=== PATIENT | male | born 1965 | race Caucasian/White ===

== ENCOUNTER 2019-05-29 16:05 | Inpatient (IN) | payer MEDICARE, OTHER ==
[~2019-05-29] VITALS: Ht 154.9 cm; Wt 53.1 kg
--- NOTE | 2019-05-29 17:35 | Emergency Room Report ---
History of Present Illness General Chief Complaint: Fever Source: Medical Record Present Illness HPI Disclaimer: Please note that this report is being documented using [employer] technology. This can lead to erroneous entry secondary to incorrect interpretation by the dictating instrument. HPI: 54-year-old male with history of Down syndrome presents for evaluation of fever and cough. [facility] He was found to have a temperature of 100.5 today and coughing with some purulent material noted. He was found hypoxic by EMS saturating 90% and placed on a nonrebreather which improved his saturations. He received Tylenol prior to transport. Cannot obtain any history from patient. He is DNR/DNI with limited interventions PMH: Down syndrome, aortic stenosis, CHF, hepatitis, previous pneumonias, PSH: Complex wound closures, cardiac surgeries Allergies: Ketamine, NSAIDs Social Hx: None reported Allergies: Coded Allergies: KETAMINE (Verified Allergy, Unknown, 05/29/19) NSAIDS (NON-STEROIDAL ANTI-INFLAMMA (Verified Allergy, Unknown, 05/29/19) Nursing Documentation-PMH Past Medical History: No History, Except For Review of Systems All Other Systems: limited - Patient mental status Physical Exam Vital Signs Date Time Temp Pulse Resp B/P (MAP) Pulse Ox O2 Delivery O2 Flow Rate FiO2 05/29/19 16:11 97.5 118 16 100/54 (69) 91 Nasal Cannula 5.0 General: Awake, nonverbal HEENT: NC/AT. EOMI. strabismus Cardiovascular: Tachycardic. Difficult to appreciate heart sounds Resp: Tachypnea, increased work of breathing. Coarse rales in all lung soto Abdomen: Abdomen is soft, nondistended. Nontender Skin: Multiple scars over the knees bilaterally are clean dry and intact. Feet are bandaged MSK: Deformity of the knees bilaterally appear to be postsurgical. Neuro: Awake, nonverbal, few spontaneous motions Medical Decision Making Diagnostic Impression: Primary Impression: Fever Additional Impressions: Tachycardia Pneumonia ER Course 54-year-old male with history of Down syndrome who is DNR/DNI presents for evaluation of fever and cough. Strong consideration of pneumonia at this time though may be a viral illness or possibly ACS, URI, CHF, bronchitis, pneumothorax. We will start broad work-up including blood cultures and give antibiotics empirically. He will require admission given his work of breathing. Laboratory Tests Test 05/29/19 17:50 05/29/19 18:35 05/29/19 19:55 Arterial Blood pH 7.413 (7.350-7.450) Arterial Blood Partial Pressure CO2 39.9 mmHg (35.0-45.0) Arterial Blood Partial Pressure O2 73.9 mmHg (75.0-100.0) L Arterial Blood HCO3 24.9 mmol/L (22.0-26.0) Arterial Blood Oxygen Saturation 94.1 % (95-100) L Arterial Blood Base Excess 0.4 (-2-2) Jonathan Test Positive Sodium Level 134 MMOL/L (136-145) L Potassium Level 4.4 MMOL/L (3.5-5.1) Chloride Level 99 MMOL/L (98-107) Carbon Dioxide Level 24 MMOL/L (21-32) Anion Gap 11 mmol/L (5-15) Blood Urea Nitrogen 9 mg/dL (7-18) Creatinine 0.6 MG/DL (0.55-1.30) Estimate Glomerular Filtration Rate > 60 mL/min (>60) Glucose Level 103 MG/DL (74-106) Lactic Acid Level 1.20 mmol/L (0.4-2.0) Calcium Level 8.9 MG/DL (8.5-10.1) Phosphorus Level 4.1 MG/DL (2.5-4.9) Magnesium Level 2.0 MG/DL (1.8-2.4) Total Bilirubin 0.7 MG/DL (0.2-1.0) Aspartate Amino Transferase (AST) 38 U/L (15-37) H Alanine Aminotransferase (ALT) 100 U/L (12-78) H Alkaline Phosphatase 79 U/L (46-116) Total Creatine Kinase 80 U/L (26-308) Creatine Kinase MB 0.8 NG/ML (0.0-3.6) Creatine Kinase MB Relative Index 1.0 Troponin I 0.000 ng/mL (0.000-0.056) Pro-B-Type Natriuretic Peptide 914 pg/mL (0-125) H Total Protein 8.2 G/DL (6.4-8.2) Albumin 2.5 G/DL (3.4-5.0) L Globulin 5.7 g/dL Albumin/Globulin Ratio 0.4 (1.0-2.7) L White Blood Count 20.5 K/UL (4.8-10.8) H Red Blood Count 3.61 M/UL (4.70-6.10) L Hemoglobin 12.3 G/DL (14.2-18.0) L Hematocrit 34.3 % (42.0-52.0) L Mean Corpuscular Volume 95 FL (80-99) Mean Corpuscular Hemoglobin 34.1 PG (27.0-31.0) H Mean Corpuscular Hemoglobin Concent 35.8 G/DL (32.0-36.0) Red Cell Distribution Width 11.2 % (11.6-14.8) L Platelet Count 296 K/UL (150-450) Mean Platelet Volume 5.8 FL (6.5-10.1) L Neutrophils (%) (Auto) % (45.0-75.0) Lymphocytes (%) (Auto) % (20.0-45.0) Monocytes (%) (Auto) % (1.0-10.0) Eosinophils (%) (Auto) % (0.0-3.0) Basophils (%) (Auto) % (0.0-2.0) Differential Total Cells Counted 100 Neutrophils % (Manual) 76 % (45-75) H Lymphocytes % (Manual) 8 % (20-45) L Monocytes % (Manual) 7 % (1-10) Eosinophils % (Manual) 0 % (0-3) Basophils % (Manual) 0 % (0-2) Band Neutrophils 9 % (0-8) H Platelet Estimate Adequate Platelet Morphology Normal Red Blood Cell Morphology Normal EKG Diagnostic Results EKG Time: 17:55 Rate: tachycardiac Rhythm: NSR ST Segments: no acute changes Other Impression Sinus rhythm, normal axis, normal intervals. Tachycardia. No acute ST segment changes appreciated. Rhythm Strip Diag. Results Rhythm Strip Time: 17:55 EP Interpretation: yes Rate: 110s Rhythm: NSR, no PVC's, no ectopy Chest X-Ray Diagnostic Results Chest X-Ray Diagnostic Results : # of Views/Limited/Complete: 1 View Indication: Shortness of Breath EP Interpretation: Yes Interpretation: no pneumothorax, other - Bilateral congestion, possible pneumonia Impression: Other - Possible bilateral pneumonia, left greater than right Electronically Signed by: Electronically signed by Dr. Jerry Gonsalves Reevaluation Time: 19:39 Last Vital Signs Date Time Temp Pulse Resp B/P (MAP) Pulse Ox O2 Delivery O2 Flow Rate FiO2 05/29/19 16:11 97.5 118 16 100/54 (69) 91 Nasal Cannula 5.0 Reevaluation Impression Concern for pneumonia versus atelectasis however given the patient's history of desaturation and persistent tachycardia will presume pneumonia at this time. BNP slightly elevated 900 but will start IV fluids. White count of 20.5. Blood gas unremarkable. Lactate within normal limits at 1.2, creatinine 0.6. Tachycardia is somewhat stable but will now start IV fluids. Continue IV fluids. Patient will be admitted to telemetry. Disposition: ADMITTED INPATIENT Condition: Serious Jerry Gonsalves MD May 29, 2019 17:35
[2019-05-29] MEDS ORDERED: Cefepime HCl 2 GM in NS 110 ML IV SCH (17:45)
[2019-05-29 19:15] LABS: ANION GAP 11 mmol/L (5-15); BLOOD UREA NITROGEN 9 mg/dL (7-18); CALCIUM 8.9 MG/DL (8.5-10.1); CARBON DIOXIDE 24 MMOL/L (21-32); CHLORIDE 99 MMOL/L (98-107); CREATININE 0.6 MG/DL (0.55-1.30); POTASSIUM 4.4 MMOL/L (3.5-5.1); SODIUM 134 MMOL/L (136-145)
--- NOTE | 2019-05-29 19:17 | Diagnostic Imaging Report ---
EXAM: XR Chest, 1 View CLINICAL HISTORY: COUGH TECHNIQUE: Frontal view of the chest. COMPARISON: None FINDINGS: Hardware: None. Lungs pleura: Left greater than right bibasilar opacities may represent small pleural effusions with atelectasis versus pneumonia on the left and probable atelectasis on the right. Heart mediastinum: Mild enlargement of the cardiac silhouette. Soft tissues: Unremarkable. Bones: No acute fracture. Scoliosis. Upper abdomen: Normal. IMPRESSION: Left greater than right bibasilar opacities may represent small pleural effusions with atelectasis versus pneumonia on the left and probable atelectasis on the right.
[2019-05-29 19:27] LABS: ALANINE AMINOTRANSFERASE 100 U/L (12-78); ALBUMIN 2.5 G/DL (3.4-5.0); ALBUMIN/GLOBULIN RATIO 0.4 (1.0-2.7); ALKALINE PHOSPHATASE 79 U/L (46-116); ASPARTATE AMINO TRANSFERASE 38 U/L (15-37); BILIRUBIN,TOTAL 0.7 MG/DL (0.2-1.0); CKMB 0.8 NG/ML (0.0-3.6); CREATINE KINASE 80 U/L (26-308); PHOSPHORUS 4.1 MG/DL (2.5-4.9)
[2019-05-29 20:11] LABS: HEMATOCRIT 34.3 % (42.0-52.0); HEMOGLOBIN 12.3 G/DL (14.2-18.0); MEAN CORPUSCULAR VOLUME 95 FL (80-99); PLATELET COUNT 296 K/UL (150-450); RED BLOOD COUNT 3.61 M/UL (4.70-6.10); RED CELL DISTRIBUTION WIDTH 11.2 % (11.6-14.8); WHITE BLOOD COUNT 20.5 K/UL (4.8-10.8)
[2019-05-29 20:25] VITALS: BP 121/65
[2019-05-29 21:21] LABS: APPEARANCE,URINE CLEAR; BILIRUBIN, URINE NEGATIVE (NEGATIVE); GLUCOSE, URINE (UA) NEGATIVE (NEGATIVE); KETONES,URINE NEGATIVE (NEGATIVE); LEUKOCYTE ESTERASE ,URINE 1+ (NEGATIVE); NITRITE,URINE NEGATIVE (NEGATIVE); PH,URINE 6.5 (4.5-8.0); PROTEIN,URINE 3+ (NEGATIVE); UROBILINOGEN,URINE NORMAL MG/DL (0.0-1.0)
[2019-05-29 21:25] LABS: COLOR,URINE YELLOW
[2019-05-29] MEDS ORDERED: DOCUSATE SODIU100 MG ORAL (22:05)
[2019-05-29] MEDS ORDERED: SYNTHROID25 MCG ORAL (22:05)
[2019-05-29] MEDS ORDERED: ASCORBIC ACID500 MG ORAL (22:05)
[2019-05-29] MEDS ORDERED: COMPLETE M9 MG/15 M1 PO (22:05)
[2019-05-29] MEDS ORDERED: ATORVASTATIN CA10 MG ORAL (22:05)
[2019-05-29] MEDS ORDERED: DULCOLAX10 MG RC (22:05)
[2019-05-29] MEDS ORDERED: MEGACE ORA400 MG/10 GT (22:05)
[2019-05-29] MEDS ORDERED: FLEET ENEMA133 ML RECTAL (22:05)
[2019-05-29] MEDS ORDERED: TRAMADOL HCL50 MG ORAL (22:05)
[2019-05-29] MEDS ORDERED: OYSTER SHELL C1 EA17 PO (22:05)
[2019-05-29] MEDS ORDERED: HEPARIN SO5000 UNIT5 IJ (22:05)
[2019-05-29] MEDS ORDERED: MIDODRINE HCL5 MG ORAL (22:05)
[2019-05-29] MEDS ORDERED: FERROUS SULFAT325 MG ORAL (22:05)
[2019-05-29] MEDS ORDERED: OMEPRAZOLE20 M3 ORAL (22:05)
[2019-05-29] MEDS ORDERED: AMMONIUM LACTA385 GM TP (22:05)
[2019-05-29] MEDS ORDERED: MILK OF MA400 MG/51 ORAL (22:05)
[2019-05-29] MEDS ORDERED: VITAMIN B-12100 MCG ORAL (22:05)
[2019-05-29] MEDS ORDERED: VENTOLIN HFA18 GM INH (22:05)
[2019-05-29] MEDS ORDERED: LORazepam Inj 2mg/ml 1ml IV PRN (23:15)
[2019-05-30] VITALS (7 sets, daily range): BP systolic 95–123; BP diastolic 58–82
[2019-05-30] MEDS ORDERED: D5 1/2NS 1,000 ML IV SCH
[2019-05-30] MEDS: Albuterol/Ipratropium 3ml neb HHN PRN ×2 (02:07→21:48)
[2019-05-30] MEDS ORDERED: Cefepime HCl 2 GM in NS 110 ML IV SCH (04:00)
[2019-05-30 07:27] LABS: HEMATOCRIT 33.9 % (42.0-52.0); HEMOGLOBIN 12.2 G/DL (14.2-18.0); MEAN CORPUSCULAR VOLUME 95 FL (80-99); PLATELET COUNT 326 K/UL (150-450); RED BLOOD COUNT 3.57 M/UL (4.70-6.10); RED CELL DISTRIBUTION WIDTH 11.6 % (11.6-14.8); WHITE BLOOD COUNT 20.9 K/UL (4.8-10.8)
[2019-05-30 07:44] LABS: ANION GAP 8 mmol/L (5-15); BLOOD UREA NITROGEN 9 mg/dL (7-18); CALCIUM 8.7 MG/DL (8.5-10.1); CARBON DIOXIDE 25 MMOL/L (21-32); CHLORIDE 101 MMOL/L (98-107); CREATININE 0.8 MG/DL (0.55-1.30); POTASSIUM 3.8 MMOL/L (3.5-5.1); SODIUM 134 MMOL/L (136-145)
[2019-05-30] MEDS ORDERED: Vancomycin 1gm/D5W 275ml IVPB ONE ×4 (08:00)
[2019-05-30] MEDS: Heparin 5000 units/ml inj SUBQ SCH ×2 (09:01→20:43)
[2019-05-30] MEDS ORDERED: SYNTHROID50 MCG ORAL (09:26)
[2019-05-30] MEDS ORDERED: D5NS 1,000 ML IV SCH (11:00)
[2019-05-30] MEDS ORDERED: Levothyroxine 25mcg tab ORAL SCH (12:00)
[2019-05-30] MEDS: Docusate 100mg cap ORAL SCH ×2 (12:11→18:42)
--- NOTE | 2019-05-30 14:21 | History and Physical ---
History of Present Illness General Date patient seen: May 30, 2019 Reason for Hospitalization: Fever Present Illness HPI Dwayne Gibson is a 54 yo man with PMH of Down's syndrome (nonverbal and bedbound at baseline), CHF (unknown EF), HTN, HLD, iron deficiency anemia, hypothyroid, GERD, , and bilateral foot pressure ulcers who presented from [facility] with fever and hypoxia. Discussed with staff at [facility], patient noted with cough (mostly non productive), increased RR, and fever Tm 100.5 at facility yesterday. Patient usually is on NC oxygen baseline 2-4L, mostly using 2L as needed. However, patient noted to be hypoxic to 82% on 2L yesterday, requiring increased NC oxygen. Unable to obtain history from patient as patient nonverbal at baseline. Staff denies noting any additional concerns, denies issues with bowel or urine. In the ED, patient noted with fever Tm 100.5, tachycardic to 130s, tachypnic to 30s, and requiring 4L NC to keep saturation >92%. Labs notable for leukocytosis 20.5 with 9 bands, H/H 12.3/34.3, sodium 134, BUN/Cr 9/ 0.6, lactate 1.2, AST 38, ALT 100, negative troponin, BNP 914, ABG 7.4/39/73/ 24. UA with 3+protein, 2+blood, 1+leuk est, 2-4RBC, not overtly indicative of infection. CXR showed L>R bibasilar opacities, may represent small pleural effusions with atelectasis vs PNA on L and probable atelectasis on R. Patient received NS bolus 30cc/kg and vancomycin x1 and cefepime x1. PMH: Down's syndrome (nonverbal and bedbound at baseline), CHF (unknown EF), HTN , HLD, iron deficiency anemia, hypothyroid, GERD, , and bilateral foot pressure ulcers PSH: None documented from SNF records FH: Unable to obtain given patient nonverbal SH: Lives at [facility], bedbound and nonverbal at baseline Meds/Allergies: Reviewed and reconciled as documented below ROS: Unable to obtain full ROS given patient nonverbal at baseline, otherwise negative except for noted above in HPI per staff from [facility] Allergies: Coded Allergies: KETAMINE (Verified Allergy, Unknown, 05/29/19) NSAIDS (NON-STEROIDAL ANTI-INFLAMMA (Verified Allergy, Unknown, 05/29/19) Medication History Scheduled Albuterol Sulfate (Ventolin Hfa), 1 PUFF INH EVERY 6 HOURS, (Reported) Ascorbic Acid* (Ascorbic Acid*), 500 MG ORAL DAILY, (Reported) Atorvastatin Calcium* (Lipitor*), 10 MG ORAL BEDTIME, (Reported) Cyanocobalamin (Vitamin B-12), 100 MCG ORAL DAILY, (Reported) Docusate Sodium* (Docusate Sodium*), 100 MG ORAL THREE TIMES A DAY, (Reported) Ferrous Sulfate* (Ferrous Sulfate*), 325 MG ORAL DAILY, (Reported) Levothyroxine Sodium (Synthroid), 50 MCG ORAL Mon, Wed, Fri, Sun, (Reported) Levothyroxine Sodium* (Synthroid*), 25 MCG ORAL Tues, Thurs, Sat, (Reported) Magnesium Hydroxide* (Milk Of Magnesia*), 30 ML ORAL DAILY, (Reported) Midodrine* (Proamatine*), 5 MG ORAL THREE TIMES A DAY, (Reported) Na Phos,M-B/Na Phos,Di-Ba* (Fleet Enema*), 133 ML RECTAL DAILY, (Reported) Omeprazole (Omeprazole), 20 MG ORAL DAILY, (Reported) Scheduled PRN Tramadol Hcl* (Ultram*), 50 MG ORAL Q6H PRN for For Pain, (Reported) Miscellaneous Medications Ammonium Lactate (Ammonium Lactate), 385 GM TP, (Reported) Bisacodyl (Dulcolax), 10 MG RC, (Reported) Calcium Carbonate/Vitamin D3 (Oyster Shell Calcium + D Cplt), 1 EACH PO, ( Reported) Heparin Sodium,Porcine (Heparin Sodium), 5,000 UNIT IJ, (Reported) Megestrol Acetate (Megestrol Acetate), 400 MG GT, (Reported) Multivit &Minerals/Ferrous Fum (Complete Multivit-Mineral Liq), 9 MG PO, ( Reported) Patient History Limited by: other - patient with Downs, nonverbal at baseline History Provided By: Medical Record, Caregiver Healthcare decision maker Resuscitation status DNR, limited interventions Advanced Directive on File Yes Past Medical/Surgical History Past Medical/Surgical History: (1) Down's syndrome (2) Hypothyroid (3) CHF (congestive heart failure) (4) HTN (hypertension) (5) HLD (hyperlipidemia) (6) GERD (gastroesophageal reflux disease) (7) Iron deficiency anemia (8) Aortic stenosis Review of Systems All Other Systems: negative except mentioned in HPI ROS Narrative Unable to obtain full ROS given patient nonverbal at baseline Physical Exam General Appearance: other - Awakens and opens eyes to voice, non verbal at baseline, mild tachypnea but no overt distress Lines, tubes and drains: peripheral HEENT: normocephalic, atraumatic, other - dry mucus membranes Neck: supple Respiratory/Chest: other - Minimally increased WOB with borderline tachypnea, rhonchorous bilaterally, L>R, no wheezing appreciated Cardiovascular/Chest: regular rhythm, tachycardia, other - Mildly tachycardic rate, regular rhythm Extremities: non-tender, normal capillary refill, no edema, no cyanosis Skin Exam: warm/dry, other - no wounds noted on LE/feet bilaterally Neurologic: other - No obvious focal deficits, nonverbal at baseline, opens eyes to voice Musculoskeletal: atrophy - atrophy of LE Last 24 Hour Vital Signs Date Time Temp Pulse Resp B/P (MAP) Pulse Ox O2 Delivery O2 Flow Rate FiO2 05/30/19 12:00 100.0 126 24 117/69 (85) 90 05/30/19 12:00 114 05/30/19 09:00 Venturi Mask 4.0 05/30/19 08:00 99.7 131 24 114/68 (83) 90 05/30/19 08:00 136 05/30/19 07:00 122 05/30/19 04:00 98.1 120 20 114/68 (83) 95 05/30/19 04:00 4.0 05/30/19 04:00 136 05/30/19 02:18 130 22 92 Venturi Mask 10.0 45 125 22 90 05/30/19 01:15 Nasal Cannula 4.0 05/30/19 00:00 4.0 05/30/19 00:00 120 05/30/19 00:00 98.2 100 20 122/67 (85) 95 05/30/19 00:00 Nasal Cannula 4.0 05/29/19 22:00 98.9 99 34 133/66 96 Nasal Cannula 4.0 05/29/19 20:26 115 34 Nasal Cannula 4.0 05/29/19 20:25 100.5 115 34 121/65 95 Nasal Cannula 4.0 05/29/19 16:11 97.5 118 16 100/54 (69) 91 Nasal Cannula 5.0 Intake and Output 05/29/19 05/30/19 18:59 06:59 Intake Total 1110 ml Output Total 300 ml Balance 810 ml Intake IV Total 1110 ml Output Urine Total 300 ml Laboratory Tests Test 05/29/19 17:50 05/29/19 18:35 05/29/19 19:55 05/29/19 21:00 Arterial Blood pH 7.413 (7.350-7.450) Arterial Blood Partial Pressure CO2 39.9 mmHg (35.0-45.0) Arterial Blood Partial Pressure O2 73.9 mmHg (75.0-100.0) L Arterial Blood HCO3 24.9 mmol/L (22.0-26.0) Arterial Blood Oxygen Saturation 94.1 % (95-100) L Arterial Blood Base Excess 0.4 (-2-2) Jonathan Test Positive Sodium Level 134 MMOL/L (136-145) L Potassium Level 4.4 MMOL/L (3.5-5.1) Chloride Level 99 MMOL/L (98-107) Carbon Dioxide Level 24 MMOL/L (21-32) Anion Gap 11 mmol/L (5-15) Blood Urea Nitrogen 9 mg/dL (7-18) Creatinine 0.6 MG/DL (0.55-1.30) Estimat Glomerular Filtration Rate > 60 mL/min (>60) Glucose Level 103 MG/DL (74-106) Lactic Acid Level 1.20 mmol/L (0.4-2.0) Calcium Level 8.9 MG/DL (8.5-10.1) Phosphorus Level 4.1 MG/DL (2.5-4.9) Magnesium Level 2.0 MG/DL (1.8-2.4) Total Bilirubin 0.7 MG/DL (0.2-1.0) Aspartate Amino Transf (AST/SGOT) 38 U/L (15-37) H Alanine Aminotransferase (ALT/SGPT) 100 U/L (12-78) H Alkaline Phosphatase 79 U/L (46-116) Total Creatine Kinase 80 U/L (26-308) Creatine Kinase MB 0.8 NG/ML (0.0-3.6) Creatine Kinase MB Relative Index 1.0 Troponin I 0.000 ng/mL (0.000-0.056) Pro-B-Type Natriuretic Peptide 914 pg/mL (0-125) H Total Protein 8.2 G/DL (6.4-8.2) Albumin 2.5 G/DL (3.4-5.0) L Globulin 5.7 g/dL Albumin/Globulin Ratio 0.4 (1.0-2.7) L White Blood Count 20.5 K/UL (4.8-10.8) H Red Blood Count 3.61 M/UL (4.70-6.10) L Hemoglobin 12.3 G/DL (14.2-18.0) L Hematocrit 34.3 % (42.0-52.0) L Mean Corpuscular Volume 95 FL (80-99) Mean Corpuscular Hemoglobin 34.1 PG (27.0-31.0) H Mean Corpuscular Hemoglobin Concent 35.8 G/DL (32.0-36.0) Red Cell Distribution Width 11.2 % (11.6-14.8) L Platelet Count 296 K/UL (150-450) Mean Platelet Volume 5.8 FL (6.5-10.1) L Neutrophils (%) (Auto) % (45.0-75.0) Lymphocytes (%) (Auto) % (20.0-45.0) Monocytes (%) (Auto) % (1.0-10.0) Eosinophils (%) (Auto) % (0.0-3.0) Basophils (%) (Auto) % (0.0-2.0) Differential Total Cells Counted 100 Neutrophils % (Manual) 76 % (45-75) H Lymphocytes % (Manual) 8 % (20-45) L Monocytes % (Manual) 7 % (1-10) Eosinophils % (Manual) 0 % (0-3) Basophils % (Manual) 0 % (0-2) Band Neutrophils 9 % (0-8) H Platelet Estimate Adequate Platelet Morphology Normal Red Blood Cell Morphology Normal Urine Color Yellow Urine Appearance Clear Urine pH 6.5 (4.5-8.0) Urine Specific [place] 1.020 (1.005-1.035) Urine Protein 3+ (NEGATIVE) H Urine Glucose (UA) Negative (NEGATIVE) Urine Ketones Negative (NEGATIVE) Urine Blood 2+ (NEGATIVE) H Urine Nitrite Negative (NEGATIVE) Urine Bilirubin Negative (NEGATIVE) Urine Urobilinogen Normal MG/DL (0.0-1.0) Urine Leukocyte Esterase 1+ (NEGATIVE) H Urine RBC 2-4 /HPF (0 - 0) H Urine WBC 0-2 /HPF (0 - 0) Urine Squamous Epithelial Cells None /LPF (NONE/OCC) Urine Bacteria Few /HPF (NONE) Test 05/30/19 06:11 White Blood Count 20.9 K/UL (4.8-10.8) H Red Blood Count 3.57 M/UL (4.70-6.10) L Hemoglobin 12.2 G/DL (14.2-18.0) L Hematocrit 33.9 % (42.0-52.0) L Mean Corpuscular Volume 95 FL (80-99) Mean Corpuscular Hemoglobin 34.2 PG (27.0-31.0) H Mean Corpuscular Hemoglobin Concent 36.0 G/DL (32.0-36.0) Red Cell Distribution Width 11.6 % (11.6-14.8) Platelet Count 326 K/UL (150-450) Mean Platelet Volume 5.7 FL (6.5-10.1) L Neutrophils (%) (Auto) % (45.0-75.0) Lymphocytes (%) (Auto) % (20.0-45.0) Monocytes (%) (Auto) % (1.0-10.0) Eosinophils (%) (Auto) % (0.0-3.0) Basophils (%) (Auto) % (0.0-2.0) Differential Total Cells Counted 100 Neutrophils % (Manual) 80 % (45-75) H Lymphocytes % (Manual) 4 % (20-45) L Monocytes % (Manual) 4 % (1-10) Eosinophils % (Manual) 0 % (0-3) Basophils % (Manual) 0 % (0-2) Band Neutrophils 12 % (0-8) H Platelet Estimate Adequate Platelet Morphology Normal Red Blood Cell Morphology Normal Sodium Level 134 MMOL/L (136-145) L Potassium Level 3.8 MMOL/L (3.5-5.1) Chloride Level 101 MMOL/L (98-107) Carbon Dioxide Level 25 MMOL/L (21-32) Anion Gap 8 mmol/L (5-15) Blood Urea Nitrogen 9 mg/dL (7-18) Creatinine 0.8 MG/DL (0.55-1.30) Estimat Glomerular Filtration Rate > 60 mL/min (>60) Glucose Level 120 MG/DL (74-106) H Calcium Level 8.7 MG/DL (8.5-10.1) Microbiology Date/Time Source Procedure Growth Status 05/29/19 21:00 Rectum Received Height (Feet): 5 Height (Inches): 1.00 Weight (Pounds): 130 Medications Current Medications Medications (Trade) Dose Ordered Sig/Kendra Route PRN Reason Start Time Stop Time Status Last Admin Dose Admin Albuterol/ Ipratropium (Albuterol/ Ipratropium) 3 ml Q4H PRN HHN Shortness of Breath 05/29/19 23:15 06/03/19 23:14 05/30/19 02:07 Ascorbic Acid (Vitamin C) 500 mg DAILY ORAL 05/31/19 09:00 06/30/19 08:59 Atorvastatin Calcium (Lipitor) 10 mg BEDTIME ORAL 05/30/19 21:00 06/29/19 20:59 Bisacodyl (Dulcolax) 10 mg DAILYPRN PRN RECTAL constipation 05/30/19 10:45 06/29/19 10:44 Cyanocobalamin (Vitamin B-12 Tab) 100 mcg DAILY ORAL 05/31/19 09:00 06/30/19 08:59 Dextrose/Sodium Chloride 1,000 ml @ 50 mls/hr Q20H IV 05/30/19 11:00 06/29/19 10:59 05/30/19 12:11 Docusate Sodium (Colace) 100 mg THREE TIMES A DAY ORAL 05/30/19 13:00 06/29/19 12:59 05/30/19 12:11 Famotidine (Pepcid) 20 mg DAILY ORAL 05/31/19 09:00 06/30/19 08:59 Ferrous Sulfate (Feosol) 325 mg DAILY ORAL 05/31/19 09:00 06/30/19 08:59 Heparin Sodium (Porcine) (Heparin 5000 units/ml) 5,000 units EVERY 12 HOURS SUBQ 05/30/19 09:00 06/29/19 08:59 05/30/19 09:01 Levothyroxine Sodium (Synthroid) 25 mcg TuThSa@0630 ORAL 06/02/19 06:30 07/02/19 06:29 Levothyroxine Sodium (Synthroid) 50 mcg [id number]@0630 ORAL 05/31/19 06:30 06/30/19 06:29 Lorazepam (Ativan 2mg/ml 1ml) 1 mg EVERY 6 HOURS PRN IV For Anxiety 05/29/19 23:15 06/05/19 23:14 Megestrol Acetate (Megace) 400 mg DAILY ORAL 05/31/19 09:00 06/30/19 08:59 Midodrine (Pro-Amatine) 5 mg TIDPRN PRN ORAL SBP<90 05/30/19 13:00 06/29/19 12:59 Piperacillin Sod/ Tazobactam Sod 3.375 gm/Dextrose 110 ml @ 27.5 mls/hr Q8HR IVPB 05/30/19 14:00 06/06/19 13:59 Vancomycin HCl (Vanco rx to dose) 1 ea DAILY PRN MISC Per rx protocol 05/29/19 23:15 06/28/19 23:14 Vancomycin HCl 1 gm/Sodium Chloride 275 ml @ 183.708 mls/hr Q12H IVPB 05/30/19 20:00 06/04/19 19:59 Assessment/Plan Status: unchanged, fever Assessment/Plan: Dwayne Gibson is a 54 yo man with PMH of Down's syndrome (nonverbal and bedbound at baseline), CHF (unknown EF), HTN, HLD, iron deficiency anemia, hypothyroid, GERD, , and bilateral foot pressure ulcers who presented from [facility] with fever, cough, and hypoxia, found with Tm 100.5, leukocytosis with left shift, and CXR suggestive of possible bilateral infiltrate, admitted for acute on chronic hypoxemic respiratory failure and sepsis 2/2 likely HCAP. #Acute on chronic hypoxemic respiratory failure (baseline NC 2-4L) #Sepsis 2/2 likely HCAP - Tm 100.5 on admission, WBC 20.5 with bands, RR to 30s, tachycardic to 130s - Monitor CBC daily for now, leukocytosis unchanged today - Lactate 1.2 - ABG on admission 7.4/39/73/24 - F/U BCX - F/U sputum CX - UA not overtly suggestive of UTI - CXR on admission with L>R bibasilar opacities, may represent small pleural effusions with atelectasis vs PNA on L and probable atelectasis on R - s/p vancomycin IV and cefepime IV in ED (05/29-05/30). Continue IV abx for HCAP with zosyn 4.5gm IV q6hrs (05/30- ) and vancomycin 1gm IV q12hrs (05/29- ) (changed to zosyn to cover potential aspiration/anaerobes given patient's lethargy). Plan for 5-7 days treatment pending clinical course. - Titrate oxygen to keep O2 sat >/=92%. Currently alternative between nasal cannula and ventimask requirements. Will add BiPAP PRN for increased work of breathing if needed. - S/p IVF NS 30cc/kg sepsis bolus. Continue gentle IVF with D5NS @50cc/hr for now while NPO, caution given CHF hx - Tylenol 650mg PO q6hrs PRN pain or fever - Duonebs q4hrs PRN SOB/wheezing #Sinus tachycardia - improving #hx HTN but now requiring PRN midodrine at SNF for intermittent hypotension #hx CHF (unknown EF) #hx #hx HLD - EKG with sinus tachycardia, TWI in lateral leads (no prior in chart for comparison). Troponin negative on admission. Low suspicion for acute ACS - Tachycardia 2/2 sepsis and fever, treat with abx and gentle IVF as above - Check TSH given patient on levothyroxine for hypothyroidism - Not overtly fluid overloaded on exam although with some atelectasis/mild PVCs/ small effusion on CXR, but given sepsis will hold off on diuresis, caution with IVF - Check TTE - Repeat CXR tomorrow to reassess fluid status - Continue home midodrine 5mg PO TID PRN SBP<90 - Holding home statin for now per below #Encephalopathy in setting of sepsis and underlying Down's syndrome - Baseline nonverbal and bedbound - Treat sepsis as above - Limit sedating medications as able - Keep NPO except for meds for now pending MACHINIST swallow eval #Mild transaminitis - AST 38 and ALT 100 on admission - Monitor daily LFTs for now - Check hepatitis panel, RUQ U/S. Abd exam benign at this time - Hold home atorvastatin for now #Chronic hyponatremia - Na 134 on admission, stable today - Per records from SNF, Na was 132 on 05/05/19 - IVF as per above - Monitor BMP #hx Hypothyroid - Check TSH - Continue home levothyroxine 25mcg PO TThSat and 50mcg PO SunMWF #hx GERD - Pepcid for home omeprazole #hx iron deficiency anemia - H/H stable - Continue home ferrous sulfate 325mg PO daily FEN IVF: D5NS @ 50cc/hr DVT ppx: Heparin subq GI ppx: Pepcid Code Status: DNR with limited interventions I spent 75 minutes on this patient encounter, with >50% spent on counseling and/ or coordination of care. Discussed with patient's RN, staff and RN at [facility]. Attempted to reach patient' next of kin Donnie Fowler ([phone] and [phone]) and medicare contact specialist Oralia Rascon ([phone]) multiple times today , called [facility] for additional numbers and tried all known contact numbers , no answer and unable to reach to discuss and update on plan of care. I spent additional 31 minutes on review of patient's prior records including prior medications, labs, physician notes, etc. Kitty Garrison M.D. May 30, 2019 14:21
[2019-05-30] MEDS: Piperacillin/Tazobactam 3.375 GM in D5W 110 ML IVPB SCH ×2 (14:48→22:20)
--- NOTE | 2019-05-30 17:12 | Cardiology Report ---
APPROVED REPORT EKG Measurement Heart [id number] Sinus tachycardia Possible Left atrial enlargement Borderline ECG
[2019-05-30] MEDS ORDERED: Vancomycin 1 GM in NS 275 ML IVPB SCH (20:00)
[2019-05-31] VITALS: BP 93/60
[2019-05-31] MEDS: D5NS 1,000 ML IV SCH ×2 (01:03→18:10)
[2019-05-31] MEDS ORDERED: Albuterol/Ipratropium 3ml neb HHN PRN (03:15)
[2019-05-31 04:00] VITALS: BP 107/65
[2019-05-31] MEDS: Piperacillin/Tazobactam 3.375 GM in D5W 110 ML IVPB SCH ×3 (05:45→21:16)
[2019-05-31] MEDS ORDERED: LORazepam Inj 2mg/ml 1ml IV PRN (06:00)
[2019-05-31 08:00] VITALS: BP 105/60
[2019-05-31] MEDS: Ascorbic Acid 500mg tab ORAL SCH (08:08)
[2019-05-31] MEDS: Vitamin B-12 100mcg tab ORAL SCH (08:08)
[2019-05-31] MEDS: Megace 400mg/10ml Susp ORAL SCH (08:08)
[2019-05-31] MEDS: Docusate 100mg cap ORAL SCH ×3 (08:08→17:02)
[2019-05-31] MEDS: Heparin 5000 units/ml inj SUBQ SCH ×2 (08:11→21:17)
[2019-05-31] MEDS: Vancomycin 1 GM in NS 275 ML IVPB SCH ×2 (08:11→21:16)
[2019-05-31 08:14] LABS: HEMATOCRIT 31.6 % (42.0-52.0); HEMOGLOBIN 11.1 G/DL (14.2-18.0); MEAN CORPUSCULAR VOLUME 97 FL (80-99); PLATELET COUNT 317 K/UL (150-450); RED BLOOD COUNT 3.26 M/UL (4.70-6.10); RED CELL DISTRIBUTION WIDTH 12.4 % (11.6-14.8); WHITE BLOOD COUNT 17.9 K/UL (4.8-10.8)
[2019-05-31 08:48] LABS: ALANINE AMINOTRANSFERASE 68 U/L (12-78); ALBUMIN/GLOBULIN RATIO 0.4 (1.0-2.7); ALKALINE PHOSPHATASE 61 U/L (46-116); ANION GAP 7 mmol/L (5-15); ASPARTATE AMINO TRANSFERASE 26 U/L (15-37); BILIRUBIN,TOTAL 0.7 MG/DL (0.2-1.0); BLOOD UREA NITROGEN 9 mg/dL (7-18); CALCIUM 8.7 MG/DL (8.5-10.1); CARBON DIOXIDE 27 MMOL/L (21-32); CHLORIDE 102 MMOL/L (98-107); CREATININE 0.7 MG/DL (0.55-1.30); POTASSIUM 3.5 MMOL/L (3.5-5.1); SODIUM 136 MMOL/L (136-145)
[2019-05-31] MEDS ORDERED: Megace 400mg/10ml Susp ORAL SCH (09:00)
[2019-05-31] MEDS ORDERED: Vitamin B-12 100mcg tab ORAL SCH (09:00)
[2019-05-31] MEDS ORDERED: Ascorbic Acid 500mg tab ORAL SCH (09:00)
[2019-05-31] MEDS ORDERED: D5NS 1000ml IV ONE (09:39)
--- NOTE | 2019-05-31 09:52 | Diagnostic Imaging Report ---
EXAM: XR Chest, 1 View CLINICAL HISTORY: COUGH TECHNIQUE: Frontal view of the chest. COMPARISON: Chest x-rays dated 05 29 19 FINDINGS: Lungs: New consolidation in the right lower lung, concerning for pneumonia versus atelectasis. Pulmonary vascular congestion. Pleural space: Small bilateral pleural effusions. Heart: Unremarkable. No cardiomegaly. Mediastinum: Unremarkable. Bones joints: Unremarkable. Tubes, lines and devices: Telemetry leads overlie the thorax. IMPRESSION: 1. New consolidation in the right lower lung, concerning for pneumonia versus atelectasis. 2. Pulmonary vascular congestion. 3. Small bilateral pleural effusions.
[2019-05-31] MEDS ORDERED: NS 275ml ONE (09:53)
[2019-05-31] MEDS ORDERED: Tubing IV Secondary IV ONE (09:53)
[2019-05-31 12:00] VITALS: BP 101/71
--- NOTE | 2019-05-31 12:06 | Cardiology Report ---
APPROVED REPORT EXAM: Two-dimensional and M-mode echocardiogram with Doppler and color Doppler. INDICATION Congestive Heart Failure M-Mode DIMENSIONS IVSd1.0 (0.7-1.1cm)Left Atrium (MM)3.3 (1.6-4.0cm) LVDd2.8 (3.5-5.6cm)Aortic Root2.6 (2.0-3.7cm) PWd1.1 (0.7-1.1cm)Aortic Cusp Exc.0.7 (1.5-2.0cm) LVDs1.7 (2.5-4.0cm) PWs1.3 cm Normal left ventricular chamber size, systolic function and wall motion. Left ventricular ejection fraction estimated to be 55 %. No evidence of left ventricular hypertrophy. Anterior Echo-free space, may be due to pericardial fat or effusion. All other cardiac chamber sizes are within normal limits. Aortic valve calcification with decreased cusp excursion c/w aortic stenosis. Echogenic material noted on anterior mitral valve leaflet. Heavily thickened mitral valve leaflets with reduced excursion. Heavy mitral annulus and aortic root calcification. Pulmonic valve not well visualized. Normal tricuspid valve structure. IVC is normal in size with physiological collapse. A color flow and spectral Doppler study was performed and revealed: No aortic regurgitation. Peak aortic valve gradient of 58 mmHg and a mean of 34 mmHg. Aortic valve area 1.0 cm2 calculated by continuity equation. Mild mitral regurgitation. Mitral P1/2 time of 50 m/s is compatible with a mitral valve area of 1.7 cm2. Peak mitral valve diastolic gradient of 21 mmHg and a mean gradient of 10 mmHg. Mitral diastolic velocities suggest mild left ventricular diastolic dysfunction (Grade I). Mild tricuspid regurgitation. Tricuspid systolic velocities suggests peak right ventricular systolic pressure of 43 mmHg, consistent with mild pulmonary hypertension. pulmonic regurgitation present.
[2019-05-31 16:00] VITALS: BP 94/57
--- NOTE | 2019-05-31 16:36 | Consultation ---
Consult Note Assessment/Plan [id number] hypercapnic/hypoxemic respiratory failure sepsis new dense RLL infiltrate HTn HLD GERD Downs syndrome decubitus ulcer chf and DNR increase IPAPbipap 15/8 FU abg nebs and suction q 4 NPO wound care repalce lytes check duplex progrnosis guarded Letitia Fan DO May 31, 2019 16:36
--- NOTE | 2019-05-31 16:45 | Consultation ---
History of Present Illness General Date patient seen: May 31, 2019 Chief Complaint: Fever Present Illness HPI 54 year old male with PMH of Down's syndrome, CHF, HTN, HLD, iron deficiency anemia, hypothyroid, GERD, , and foot pressure ulcers who presented with fever and hypoxia. Unable to obtain history from patient as patient nonverbal at baseline. On admission patient was noted to have a abnormal pressure ulcer on the right heel. Surgery was called to evaluate and assist with care. Patient seen, patient evaluated, chart reviewed. Allergies: Coded Allergies: KETAMINE (Verified Allergy, Unknown, 05/29/19) NSAIDS (NON-STEROIDAL ANTI-INFLAMMA (Verified Allergy, Unknown, 05/29/19) Medication History Scheduled Albuterol Sulfate (Ventolin Hfa), 1 PUFF INH EVERY 6 HOURS, (Reported) Ascorbic Acid* (Ascorbic Acid*), 500 MG ORAL DAILY, (Reported) Atorvastatin Calcium* (Lipitor*), 10 MG ORAL BEDTIME, (Reported) Cyanocobalamin (Vitamin B-12), 100 MCG ORAL DAILY, (Reported) Docusate Sodium* (Docusate Sodium*), 100 MG ORAL THREE TIMES A DAY, (Reported) Ferrous Sulfate* (Ferrous Sulfate*), 325 MG ORAL DAILY, (Reported) Levothyroxine Sodium (Synthroid), 50 MCG ORAL Mon, Wed, Fri, Sun, (Reported) Levothyroxine Sodium* (Synthroid*), 25 MCG ORAL Tues, Thurs, Sat, (Reported) Magnesium Hydroxide* (Milk Of Magnesia*), 30 ML ORAL DAILY, (Reported) Midodrine* (Proamatine*), 5 MG ORAL THREE TIMES A DAY, (Reported) Na Phos,M-B/Na Phos,Di-Ba* (Fleet Enema*), 133 ML RECTAL DAILY, (Reported) Omeprazole (Omeprazole), 20 MG ORAL DAILY, (Reported) Scheduled PRN Tramadol Hcl* (Ultram*), 50 MG ORAL Q6H PRN for For Pain, (Reported) Miscellaneous Medications Ammonium Lactate (Ammonium Lactate), 385 GM TP, (Reported) Bisacodyl (Dulcolax), 10 MG RC, (Reported) Calcium Carbonate/Vitamin D3 (Oyster Shell Calcium + D Cplt), 1 EACH PO, ( Reported) Heparin Sodium,Porcine (Heparin Sodium), 5,000 UNIT IJ, (Reported) Megestrol Acetate (Megestrol Acetate), 400 MG GT, (Reported) Multivit &Minerals/Ferrous Fum (Complete Multivit-Mineral Liq), 9 MG PO, ( Reported) Patient History Limited by: medical condition History Provided By: Medical Record, PMD Healthcare decision maker Resuscitation status Advanced Directive on File Past Medical/Surgical History Past Medical/Surgical History: (1) Tachycardia (2) Fever (3) Pneumonia (4) Aortic stenosis (5) Down's syndrome (6) CHF (congestive heart failure) (7) Iron deficiency anemia (8) GERD (gastroesophageal reflux disease) (9) HTN (hypertension) (10) Hypothyroid (11) HLD (hyperlipidemia) Review of Systems ROS Narrative cannot obtain given medical condition Physical Exam General Appearance: no apparent distress Lines, tubes and drains: peripheral HEENT: mucous membranes moist Neck: normal inspection Respiratory/Chest: lungs clear, no respiratory distress, no accessory muscle use Cardiovascular/Chest: normal rate Abdomen: soft, no organomegaly, no mass Extremities: non-tender, non-pitting Skin Exam: warm/dry Neurologic: other Last 24 Hour Vital Signs Date Time Temp Pulse Resp B/P (MAP) Pulse Ox O2 Delivery O2 Flow Rate FiO2 05/31/19 16:00 50 05/31/19 16:00 Bi-pap 05/31/19 14:30 119 35 96 Facial 100 05/31/19 12:30 108 33 96 Facial 100 05/31/19 12:00 50 05/31/19 12:00 Bi-pap 05/31/19 12:00 99.0 122 32 101/71 (81) 99 05/31/19 11:43 105 05/31/19 10:30 109 32 95 Facial 100 05/31/19 09:08 93 05/31/19 08:25 109 29 90 Facial 40 05/31/19 08:25 90 Bi-Pap 40 05/31/19 08:25 109 29 90 Bi-Pap 40 05/31/19 08:00 50 05/31/19 08:00 Bi-pap 05/31/19 08:00 115 05/31/19 08:00 98.2 126 33 105/60 (75) 92 05/31/19 05:37 115 32 94 Facial 40 05/31/19 04:00 Bi-pap 05/31/19 04:00 99.1 120 30 107/65 (79) 95 05/31/19 04:00 106 05/31/19 03:21 100 29 93 Facial 40 05/31/19 01:00 40 05/31/19 00:49 109 34 95 Facial 40 05/31/19 00:00 116 05/31/19 00:00 99.0 114 32 93/60 (71) 92 05/30/19 22:25 98.5 05/30/19 22:25 98.5 130 30 95/58 (70) 89 05/30/19 22:25 130 30 95/58 (70) 89 05/30/19 22:03 126 22 94 Venturi Mask 14.0 55 05/30/19 21:52 117 22 91 05/30/19 21:01 Venturi Mask 12.0 05/30/19 21:00 Venturi Mask 12.0 05/30/19 20:00 115 05/30/19 20:00 100.4 122 25 116/71 (86) 94 05/30/19 20:00 94 Venturi Mask 12.0 50 05/30/19 18:21 Venturi Mask 4.0 Intake and Output 05/30/19 05/31/19 18:59 06:59 Intake Total 364.9 ml Output Total 300 ml 250 ml Balance -300 ml 114.9 ml Intake IV Total 364.9 ml Output Urine Total 300 ml 250 ml # Voids 6 1 # Bowel Movements 3 Laboratory Tests Test 05/31/19 06:50 05/31/19 08:25 White Blood Count 17.9 K/UL (4.8-10.8) H Red Blood Count 3.26 M/UL (4.70-6.10) L Hemoglobin 11.1 G/DL (14.2-18.0) L Hematocrit 31.6 % (42.0-52.0) L Mean Corpuscular Volume 97 FL (80-99) Mean Corpuscular Hemoglobin 34.1 PG (27.0-31.0) H Mean Corpuscular Hemoglobin Concent 35.2 G/DL (32.0-36.0) Red Cell Distribution Width 12.4 % (11.6-14.8) Platelet Count 317 K/UL (150-450) Mean Platelet Volume 5.7 FL (6.5-10.1) L Neutrophils (%) (Auto) % (45.0-75.0) Lymphocytes (%) (Auto) % (20.0-45.0) Monocytes (%) (Auto) % (1.0-10.0) Eosinophils (%) (Auto) % (0.0-3.0) Basophils (%) (Auto) % (0.0-2.0) Differential Total Cells Counted 100 Neutrophils % (Manual) 77 % (45-75) H Lymphocytes % (Manual) 14 % (20-45) L Monocytes % (Manual) 7 % (1-10) Eosinophils % (Manual) 0 % (0-3) Basophils % (Manual) 0 % (0-2) Band Neutrophils 2 % (0-8) Platelet Estimate Adequate Platelet Morphology Normal Hypochromasia 1+ Sodium Level Pending Potassium Level Pending Chloride Level Pending Carbon Dioxide Level Pending Anion Gap 7 mmol/L (5-15) Blood Urea Nitrogen Pending Creatinine Pending Estimat Glomerular Filtration Rate Pending Glucose Level Pending Calcium Level Pending Total Bilirubin Pending Aspartate Amino Transf (AST/SGOT) Pending Alanine Aminotransferase (ALT/SGPT) Pending Alkaline Phosphatase Pending Total Protein Pending Albumin Pending Globulin Pending Albumin/Globulin Ratio 0.4 (1.0-2.7) L Thyroid Stimulating Hormone (TSH) 3.777 uiU/mL (0.358-3.740) Hepatitis A IgM Antibody Pending Hepatitis B Surface Antigen Pending Hepatitis B Core IgM Antibody Pending Hepatitis C Antibody Pending Arterial Blood pH 7.362 (7.350-7.450) Arterial Blood Partial Pressure CO2 46.4 mmHg (35.0-45.0) H Arterial Blood Partial Pressure O2 66.2 mmHg (75.0-100.0) L Arterial Blood HCO3 25.7 mmol/L (22.0-26.0) Arterial Blood Oxygen Saturation 91.9 % (95-100) L Arterial Blood Base Excess 0 (-2-2) Jonathan Test Positive Height (Feet): 5 Height (Inches): 1.00 Weight (Pounds): 130 Medications Current Medications Medications (Trade) Dose Ordered Sig/Kendra Route PRN Reason Start Time Stop Time Status Last Admin Dose Admin Acetaminophen (Tylenol) 650 mg Q6H PRN RECTAL Mild Pain (Pain Scale 1-3) 05/31/19 01:15 06/30/19 01:14 Albuterol/ Ipratropium (Albuterol/ Ipratropium) 3 ml Q4H PRN HHN Shortness of Breath 05/31/19 03:15 06/03/19 23:14 Ascorbic Acid (Vitamin C) 500 mg DAILY ORAL 05/31/19 09:00 06/30/19 08:59 Bisacodyl (Dulcolax) 10 mg DAILYPRN PRN RECTAL constipation 05/31/19 10:45 06/29/19 10:44 Cyanocobalamin (Vitamin B-12 Tab) 100 mcg DAILY ORAL 05/31/19 09:00 06/30/19 08:59 Dextrose/Sodium Chloride 1,000 ml @ 50 mls/hr Q20H IV 05/31/19 00:30 06/29/19 10:59 05/31/19 01:03 Docusate Sodium (Colace) 100 mg THREE TIMES A DAY ORAL 05/31/19 09:00 06/29/19 12:59 Famotidine (Pepcid I.v.) 20 mg Q12HR IVP 05/31/19 09:00 06/30/19 08:59 05/31/19 09:31 Ferrous Sulfate (Feosol) 325 mg DAILY ORAL 05/31/19 09:00 06/30/19 08:59 Heparin Sodium (Porcine) (Heparin 5000 units/ml) 5,000 units EVERY 12 HOURS SUBQ 05/31/19 09:00 06/29/19 08:59 05/31/19 08:11 Levothyroxine Sodium (Synthroid) 25 mcg TuThSa@0630 ORAL 06/02/19 06:30 07/02/19 06:29 Levothyroxine Sodium (Synthroid) 50 mcg SuMoWeFr@0630 ORAL 05/31/19 06:30 06/30/19 06:29 Lorazepam (Ativan 2mg/ml 1ml) 1 mg EVERY 6 HOURS PRN IV For Anxiety 05/31/19 06:00 06/05/19 23:14 Megestrol Acetate (Megace) 400 mg DAILY ORAL 05/31/19 09:00 06/30/19 08:59 Midodrine (Pro-Amatine) 5 mg TIDPRN PRN ORAL SBP<90 05/31/19 13:00 06/29/19 12:59 Piperacillin Sod/ Tazobactam Sod 3.375 gm/Dextrose 110 ml @ 27.5 mls/hr Q8HR IVPB 05/31/19 06:00 06/06/19 13:59 05/31/19 13:15 Potassium Chloride 100 ml @ 100 mls/hr Q1H IVPB 05/31/19 14:45 05/31/19 16:44 05/31/19 15:55 Vancomycin HCl (Vanco rx to dose) 1 ea DAILY PRN MISC Per rx protocol 05/31/19 09:00 06/28/19 23:14 Vancomycin HCl 1 gm/Sodium Chloride 275 ml @ 183.708 mls/hr Q12H IVPB 05/31/19 08:00 06/04/19 19:59 05/31/19 08:11 Assessment/Plan Problem List: (1) Ulcer of right heel Assessment & Plan: This is a 54-year-old male with multiple medical comorbidities who is currently presented for fever and tachycardia. Patient identified to have abnormal decubitus pressure ulcer on right heel. On examination patient has a stage III full-thickness right heel decubitus ulcer periwound intact but mildly macerated. Surrounding erythema. No drainage. No underlying abscess. No bone palpable. No foul odor. Labs noted and identified. No signs of acute active inflammatory or infectious process from this. Patient does have a leukocytosis that significant. Will continue work-up for etiology Will recommend local wound care. Apply Thera honey followed by up to foam dressing daily. We will monitor. Thank you for this consultation we will follow with recommendations ICD Codes: L97.419 - Non-pressure chronic ulcer of right heel and midfoot with unspecified severity SNOMED: 672288258 (2) Fever Assessment & Plan: Low-grade fevers, tachycardia, leukocytosis, abnormal labs Head to toe skin integrity and wound eval completed as above UA noted chest x-ray ordered Continue antibiotics IV fluids Patient not eating well and currently DNR/DNI and does not have feeding tube. Will get speech and swallow eval prior to diet ICD Codes: R50.9 - Fever, unspecified SNOMED: 101647809 (3) Tachycardia ICD Codes: R00.0 - Tachycardia, unspecified SNOMED: 1867309 Alexis Ruffin May 31, 2019 16:45
[2019-05-31] MEDS: Albuterol/Ipratropium 3ml neb HHN SCH ×4 (17:00→23:04)
[2019-05-31] MEDS ORDERED: Albuterol/Ipratropium 3ml neb HHN ONE (17:15)
--- NOTE | 2019-05-31 18:53 | General Progress Note ---
Assessment/Plan Status: deteriorating, fever Assessment/Plan: Dwayne Gibson is a 54 yo man with PMH of Down's syndrome (nonverbal and bedbound at baseline), CHF (unknown EF), HTN, HLD, iron deficiency anemia, hypothyroid, GERD, , and bilateral foot pressure ulcers who presented from [facility] with fever, cough, and hypoxia, found with Tm 100.5, leukocytosis with left shift, and CXR suggestive of possible bilateral infiltrate, admitted for acute on chronic hypoxemic respiratory failure and sepsis 2/2 HCAP. #Acute on chronic hypoxemic/hypercapnic respiratory failure (baseline NC 2-4L) - worsening #Sepsis 2/2 HCAP - Tm 100.5 on admission, WBC 20.5 with bands, RR to 30s, tachycardic to 130s - Monitor CBC daily for now, leukocytosis unchanged today - Lactate 1.2 - ABG on admission 7.4/39/73/24 - BCX negative to date - F/U sputum CX - UA not overtly suggestive of UTI - CXR on admission with L>R bibasilar opacities, may represent small pleural effusions with atelectasis vs PNA on L and probable atelectasis on R - Repeat CXR on 05/31 with obvious RLL consolidation, new compared to admission CXR, PVC, small bilateral pleural effusions - s/p vancomycin IV and cefepime IV in ED (05/29-05/30). Continue IV abx for HCAP with zosyn 4.5gm IV q6hrs (05/30- ) and vancomycin 1gm IV q12hrs (05/29- ) (changed to zosyn to cover potential aspiration/anaerobes given patient's lethargy). Plan for 5-7 days treatment pending clinical course. - Wean oxygen to keep O2 sat >/=92%. Requiring continuous BiPAP at this time for increased WOB and tachypnea. - Pulm/crit care consulted, appreciate recs. Nebs scheduled q4hrs with suction q4hrs. BiPAP settings increased to 15/8. - S/p IVF NS 30cc/kg sepsis bolus and gentle continuous D5NS IVF. Will d/c IVF today given increased PVC on CXR and worsening respiratory failure. - Tylenol 650mg PO q6hrs PRN pain or fever - Duonebs q4hrs ATC - Repeat CXR and ABG tomorrow #Sinus tachycardia #hx HTN but now requiring PRN midodrine at SNF for intermittent hypotension #hx HFpEF (LVEF 55%) #hx #hx HLD - EKG with sinus tachycardia, TWI in lateral leads (no prior in chart for comparison). Troponin negative on admission. Low suspicion for acute ACS - Tachycardia 2/2 sepsis and fever, treat with abx and gentle IVF as above - TSH 3.7 - Not overtly fluid overloaded on exam although with some atelectasis/mild PVCs/ small effusion on CXR, but given sepsis will hold off on diuresis, caution with IVF - IVF d/c'ed today given PVC and worsening respiratory status. Continue to hold off on diuresis given sepsis and borderline hypotension - TTE with LVEF 55% - Repeat CXR 05/31 noted as per above - Continue home midodrine 5mg PO TID PRN SBP<90 - Can resume home statin once able to tolerate PO #Encephalopathy in setting of sepsis and underlying Down's syndrome - Baseline nonverbal and bedbound - Treat sepsis as above - Limit sedating medications as able - Keep NPO except for meds for now pending GRAPHIC DESIGN SPECIALIST swallow eval #Mild transaminitis - resolved - AST 38 and ALT 100 on admission, normalized today - F/U hepatitis panel, RUQ U/S. - Can resume home statin once able to tolerate PO #Chronic hyponatremia - improving - Na 134 on admission, now 136 - Per records from SNF, Na was 132 on 05/05/19 - Monitor BMP #hx Hypothyroid - TSH 3.7 - Continue home levothyroxine 25mcg PO TThSat and 50mcg PO SunMWF - May need to change to IV if patient remains unable to tolerate PO #hx GERD - Pepcid for home omeprazole #hx iron deficiency anemia - H/H stable - Continue home ferrous sulfate 325mg PO daily #Right heel wound - Present on admission - Appreciate wound care/surgery consult - Wound care as per recs FEN IVF: None given worsening respiratory failure and vascular congestion DVT ppx: Heparin subq GI ppx: Pepcid Code Status: DNR/DNI with limited interventions I spent 45 minutes on this patient encounter, with >50% spent on counseling and/ or coordination of care. Discussed with patient's RN, pulmonary/crit care. Attempted to reach patient' next of kin Donnie Fowler ([phone] and ) and personnel placement specialist Oralia Rascon ([phone]) multiple times again today but unable to reach. I spent 30 minutes of critical care time. Subjective Date patient seen: May 31, 2019 Allergies: Coded Allergies: KETAMINE (Verified Allergy, Unknown, 05/29/19) NSAIDS (NON-STEROIDAL ANTI-INFLAMMA (Verified Allergy, Unknown, 05/29/19) Subjective Patient seen and examined at bedside earlier today. Required initiation of BIPAP overnight and transferred to [facility] due to worsening tachypnea and work of breathing. Also spike fever to 101 yesterday. Patient tachypneic on BIPAP, nonverbal, opens eyes to verbal/tactile stimuli. Objective Last 24 Hour Vital Signs Date Time Temp Pulse Resp B/P (MAP) Pulse Ox O2 Delivery O2 Flow Rate FiO2 05/31/19 17:30 114 36 97 Facial 100 118 32 97 Bi-Pap 100 05/31/19 16:00 50 05/31/19 16:00 Bi-pap 05/31/19 16:00 99.9 122 26 94/57 (69) 99 05/31/19 15:24 114 05/31/19 14:30 119 35 96 Facial 100 05/31/19 12:30 108 33 96 Facial 100 05/31/19 12:00 50 05/31/19 12:00 Bi-pap 05/31/19 12:00 99.0 122 32 101/71 (81) 99 05/31/19 11:43 105 05/31/19 10:30 109 32 95 Facial 100 05/31/19 09:08 93 05/31/19 08:25 109 29 90 Facial 40 05/31/19 08:25 90 Bi-Pap 40 05/31/19 08:25 109 29 90 Bi-Pap 40 05/31/19 08:00 50 05/31/19 08:00 Bi-pap 05/31/19 08:00 115 05/31/19 08:00 98.2 126 33 105/60 (75) 92 05/31/19 05:37 115 32 94 Facial 40 05/31/19 04:00 Bi-pap 05/31/19 04:00 99.1 120 30 107/65 (79) 95 05/31/19 04:00 106 05/31/19 03:21 100 29 93 Facial 40 05/31/19 01:00 40 05/31/19 00:49 109 34 95 Facial 40 05/31/19 00:00 116 05/31/19 00:00 99.0 114 32 93/60 (71) 92 05/30/19 22:25 98.5 05/30/19 22:25 98.5 130 30 95/58 (70) 89 05/30/19 22:25 130 30 95/58 (70) 89 05/30/19 22:03 126 22 94 Venturi Mask 14.0 55 05/30/19 21:52 117 22 91 05/30/19 21:01 Venturi Mask 12.0 05/30/19 21:00 Venturi Mask 12.0 05/30/19 20:00 115 05/30/19 20:00 100.4 122 25 116/71 (86) 94 05/30/19 20:00 94 Venturi Mask 12.0 50 Intake and Output 05/30/19 05/31/19 18:59 06:59 Intake Total 364.9 ml Output Total 300 ml 250 ml Balance -300 ml 114.9 ml Intake IV Total 364.9 ml Output Urine Total 300 ml 250 ml # Voids 6 1 # Bowel Movements 3 Laboratory Tests 05/31/19 06:50: White Blood Count 17.9H, Red Blood Count 3.26L, Hemoglobin 11.1L, Hematocrit 31.6L, Mean Corpuscular Volume 97, Mean Corpuscular Hemoglobin 34.1H, Mean Corpuscular Hemoglobin Concent 35.2, Red Cell Distribution Width 12.4, Platelet Count 317, Mean Platelet Volume 5.7L, Neutrophils (%) (Auto) , Lymphocytes (%) ( Auto) , Monocytes (%) (Auto) , Eosinophils (%) (Auto) , Basophils (%) (Auto) , Differential Total Cells Counted 100, Neutrophils % (Manual) 77H, Lymphocytes % (Manual) 14L, Monocytes % (Manual) 7, Eosinophils % (Manual) 0, Basophils % ( Manual) 0, Band Neutrophils 2, Platelet Estimate Adequate, Platelet Morphology Normal, Hypochromasia 1+, Sodium Level [Pending], Potassium Level [Pending], Chloride Level [Pending], Carbon Dioxide Level [Pending], Anion Gap 7, Blood Urea Nitrogen [Pending], Creatinine [Pending], Estimat Glomerular Filtration Rate [Pending], Glucose Level [Pending], Calcium Level [Pending], Total Bilirubin [Pending], Aspartate Amino Transf (AST/SGOT) [Pending], Alanine Aminotransferase (ALT/SGPT) [Pending], Alkaline Phosphatase [Pending], Total Protein [Pending], Albumin [Pending], Globulin [Pending], Albumin/Globulin Ratio 0.4L, Thyroid Stimulating Hormone (TSH) 3.777H, Hepatitis A IgM Antibody [ Pending], Hepatitis B Surface Antigen [Pending], Hepatitis B Core IgM Antibody [ Pending], Hepatitis C Antibody [Pending] 05/31/19 08:25: Arterial Blood pH 7.362, Arterial Blood Partial Pressure CO2 46.4H, Arterial Blood Partial Pressure O2 66.2L, Arterial Blood HCO3 25.7, Arterial Blood Oxygen Saturation 91.9L, Arterial Blood Base Excess 0, Jonathan Test Positive Height (Feet): 5 Height (Inches): 1.00 Weight (Pounds): 130 General Appearance: lethargic, mild distress EENT: other - BIPAP mask in place Neck: supple Cardiovascular: normal peripheral pulses, regular rhythm, tachycardia Respiratory/Chest: other - Tachypneic, on BIPAP, bilateral rhonchi, no wheezing appreciated Abdomen: normal bowel sounds, non tender, soft Extremities: non-tender Neurologic: other - baseline nonverbal, no new obvious focal deficits Skin: warm/dry Kitty Garrison M.D. May 31, 2019 18:53
--- NOTE | 2019-05-31 18:57 | Diagnostic Imaging Report ---
Indication: Bilateral lower extremity edema Technique: Grayscale and duplex images of the bilateral lower extremity veins Comparison: none Findings: Exam is somewhat limited, patient is contracted. Bilaterally, grayscale and duplex images demonstrate no evidence of intraluminal thrombus. Normal phasic Doppler waveforms, demonstrating normal augmentation response. Normal compressibility. Impression: Negative for evidence of lower extremity deep venous thrombosis bilaterally This agrees with the preliminary interpretation provided overnight by [facility] teleradiology service.
[2019-05-31] MEDS ORDERED: Albuterol/Ipratropium 3ml neb HHN SCH (19:00)
[2019-05-31 20:00] VITALS: BP 104/56
[2019-05-31] MEDS: Acetaminophen 650 MG SUPP RECTAL PRN (21:17)
--- NOTE | 2019-05-31 23:00 | Consultation ---
DATE OF CONSULTATION: 05/31/2019 REASON FOR CONSULTATION: Respiratory failure. HISTORY OF PRESENT ILLNESS: This is a 54-year-old gentleman who was transferred from [facility] for worsening respiratory status, noted with cough, tachypnea, hypoxemia, and worsening altered mental status as well as a fever as high as 101. He is currently on BiPAP 12/5, tidal volume of 230. His ABG shows a respiratory acidosis with a current pH of 736, pCO2 46, pO2 is 66. Chest x-ray in the last 48 hours of intense right lower lobe pneumonia. He is DNR at this time and further recommendations have been requested. PAST MEDICAL HISTORY: Includes Down syndrome, congestive heart failure, hypertension, hyperlipidemia, anemia, hypothyroidism, GERD, aortic stenosis, decubitus ulcers, nonverbal at baseline. FAMILY HISTORY: Noncontributory. PAST SURGICAL HISTORY: None per the medical records. SOCIAL HISTORY: Lives in a half-way, [facility], bedbound, nonverbal at baseline. MEDICATIONS: Pre-hospital medications and present medications were reviewed, reconciled, and documented in the electronic medical record by dose, frequency, and route. ALLERGIES: Ketamine and NSAIDs. PHYSICAL EXAMINATION: GENERAL: He is in moderate respiratory distress, nonverbal, on BiPAP, nonresponsive to noxious stimuli. VITAL SIGNS: He is currently febrile at 99, pulse is 119, respirations 35. He is 100% FiO2, saturating 96%. HEENT: Oropharynx is dry. Nasal mucosa is dry. NECK: Supple. No lymphadenopathy. LUNGS: Bilateral rhonchi. Decreased breath sounds at the right greater than left bases. No wheezes. HEART: Tachycardic with a murmur. ABDOMEN: Soft, obese, nontender. EXTREMITIES: Positive edema. Bilateral foot drops are noted. NEUROLOGIC: Does not follow commands. LABORATORY AND DIAGNOSTIC DATA: ABG 7.36, 46 and 66 on current settings. His urinalysis is positive for leukocyte esterase. His sodium is 136, potassium 3.5, chloride 102, bicarb 27, BUN is 9, creatinine 0.7, and glucose is 102. His TSH is mildly elevated at 3.77. His white count is 17.9, down from 20.9 upon admission, hemoglobin 11.1, platelets are 317. His chest x-ray on admission of 05/29/2019 had mild atelectasis. He has now got a very dense right lower lobe infiltrate on repeat film today. His echo has an ejection fraction of 55%. ASSESSMENT: 1. Suspected aspiration with dense right lower lobe pneumonia. 2. Hypercapnic hypoxemic respiratory failure. 3. Down syndrome. 4. Hypertension. 5. Hyperlipidemia. 6. Gastroesophageal reflux disease. 7. Decubitus ulcers. 8. sepsis and DNR status. PLAN: We will increase his BIPAP to 15/8, attempt to improve his ventilation. Intravenous antibiotics, neb suction. DVT prophylaxis. Check lower extremity duplex to rule out blood clot. Aspiration precautions. NPO at this time. Wound care as ordered. Recheck laboratories and lytes, replace accordingly and monitor respiratory status. The patient is a DNR, not to be intubated. We will continue to support him, but his prognosis is guarded. Greater than 35 minutes of time spent with the patient, nursing staff, discussing and reviewing imaging studies and past records provided. Letitia Fan D.O. DR: Guy JOB#: [id number] CC:
[2019-06-01] VITALS: BP 132/67
[2019-06-01] MEDS: Albuterol/Ipratropium 3ml neb HHN SCH ×6 (03:33→22:57)
[2019-06-01 04:00] VITALS: BP 118/64
[2019-06-01] MEDS: Piperacillin/Tazobactam 3.375 GM in D5W 110 ML IVPB SCH ×3 (05:33→21:02)
[2019-06-01 06:15] LABS: BASOPHILS % (AUTO) 0.6 % (0.0-2.0); EOSINOPHILS % (AUTO) 0.2 % (0.0-3.0); HEMATOCRIT 31.8 % (42.0-52.0); HEMOGLOBIN 10.8 G/DL (14.2-18.0); LYMPHOCYTES % (AUTO) 9.9 % (20.0-45.0); MEAN CORPUSCULAR VOLUME 97 FL (80-99); MONOCYTES % (AUTO) 6.6 % (1.0-10.0); NEUTROPHILS % (AUTO) 82.7 % (45.0-75.0); PLATELET COUNT 334 K/UL (150-450); RED BLOOD COUNT 3.26 M/UL (4.70-6.10); RED CELL DISTRIBUTION WIDTH 12.2 % (11.6-14.8); WHITE BLOOD COUNT 17.2 K/UL (4.8-10.8)
[2019-06-01 06:38] LABS: ALANINE AMINOTRANSFERASE 69 U/L (12-78); ALBUMIN 1.9 G/DL (3.4-5.0); ALBUMIN/GLOBULIN RATIO 0.4 (1.0-2.7); ALKALINE PHOSPHATASE 60 U/L (46-116); ANION GAP 7 mmol/L (5-15); ASPARTATE AMINO TRANSFERASE 35 U/L (15-37); BILIRUBIN,TOTAL 0.6 MG/DL (0.2-1.0); BLOOD UREA NITROGEN 9 mg/dL (7-18); CALCIUM 8.8 MG/DL (8.5-10.1); CARBON DIOXIDE 27 MMOL/L (21-32); CHLORIDE 103 MMOL/L (98-107); CREATININE 0.8 MG/DL (0.55-1.30); POTASSIUM 3.7 MMOL/L (3.5-5.1); SODIUM 137 MMOL/L (136-145)
[2019-06-01 08:00] VITALS: BP 95/64
[2019-06-01] MEDS: Megace 400mg/10ml Susp ORAL SCH (09:00)
[2019-06-01] MEDS: Vitamin B-12 100mcg tab ORAL SCH (09:00)
[2019-06-01] MEDS: Ascorbic Acid 500mg tab ORAL SCH (09:00)
[2019-06-01] MEDS: Docusate 100mg cap ORAL SCH ×3 (09:00→17:33)
[2019-06-01] MEDS: Heparin 5000 units/ml inj SUBQ SCH ×2 (09:08→21:03)
[2019-06-01] MEDS: Vancomycin 1 GM in NS 275 ML IVPB SCH ×2 (09:09→21:02)
--- NOTE | 2019-06-01 11:27 | Diagnostic Imaging Report ---
Indication: Shortness of breath Technique: One view of the chest Comparison: 05/31/2019 Findings: There is increased pleural fluid on the right. There is stable to slightly increased interstitial congestion. Small left pleural effusion is unchanged. The heart size is normal Impression: Increased right pleural effusion Stable to slightly increased bilateral interstitial edema Other stable findings as noted
[2019-06-01 12:00] VITALS: BP 139/79
--- NOTE | 2019-06-01 12:01 | Diagnostic Imaging Report ---
Indication: Abdominal pain Technique: Grayscale and duplex images of the right upper quadrant Comparison: none Findings: Gallbladder is unremarkable, without stones, wall thickening, nor pericholecystic fluid. Common bile duct measures 1 mm in diameter. Liver demonstrates normal echogenicity, no focal abnormality. Patent hepatic and portal veins. Pancreas is poorly visualized. The abdominal aorta is not aneurysmal. Unremarkable inferior vena cava. The right kidney measures 9.7 cm in length. It demonstrates normal echogenicity, no focal abnormality. Impression: Nonvisualized pancreas Otherwise unremarkable. Negative for gallstones or dilated bile duct
--- NOTE | 2019-06-01 12:42 | Pulmonology Progress Note ---
Assessment/Plan Assessment/Plan Problem List: 1. Suspected aspiration with dense right lower lobe pneumonia. 2. Hypercapnic hypoxemic respiratory failure. 3. Down syndrome. 4. Hypertension. 5. Hyperlipidemia. 6. Gastroesophageal reflux disease. 7. Decubitus ulcers. Plan: -BiPAP 12/5 qhs and prn -high flow nasal cannula -cont abx -monitor labs -monitor CXR Case d/w RN Subjective ROS Limited/Unobtainable: Yes Interval Events: ABG improved, taken off BiPAP, now on high flow Allergies: Coded Allergies: KETAMINE (Verified Allergy, Unknown, 05/29/19) NSAIDS (NON-STEROIDAL ANTI-INFLAMMA (Verified Allergy, Unknown, 05/29/19) Objective Last 24 Hour Vital Signs Date Time Temp Pulse Resp B/P (MAP) Pulse Ox O2 Delivery O2 Flow Rate FiO2 06/01/19 11:30 96 High Flow 40.0 50 06/01/19 09:05 106 32 98 Full Face 80 06/01/19 08:00 100 06/01/19 08:00 Bi-pap 06/01/19 08:00 115 06/01/19 08:00 99.5 117 32 95/64 (74) 96 06/01/19 07:55 101 29 99 Full Face 100 112 29 99 Bi-Pap 100 06/01/19 07:55 99 Bi-Pap 100 06/01/19 05:15 109 32 98 Facial 80 06/01/19 04:00 Bi-pap 06/01/19 04:00 100 06/01/19 04:00 99.8 118 24 118/64 (82) 96 06/01/19 03:43 114 06/01/19 03:27 108 30 99 Facial 80 108 30 99 Bi-Pap 80 06/01/19 01:13 103 35 98 Facial 100 06/01/19 00:00 99.3 112 28 132/67 (88) 94 06/01/19 00:00 119 06/01/19 00:00 Bi-pap 05/31/19 23:02 112 29 99 Facial 100 118 31 99 Bi-Pap 100 05/31/19 21:47 99.8 05/31/19 21:05 118 31 99 Facial 100 05/31/19 20:00 100.4 125 30 104/56 (72) 98 05/31/19 20:00 Bi-pap 05/31/19 20:00 100 05/31/19 19:52 112 29 99 Facial 100 112 29 99 Bi-Pap 100 05/31/19 19:52 99 Bi-Pap 100 05/31/19 19:48 126 05/31/19 17:30 114 36 97 Facial 100 118 32 97 Bi-Pap 100 05/31/19 16:00 50 05/31/19 16:00 Bi-pap 05/31/19 16:00 99.9 122 26 94/57 (69) 99 05/31/19 15:24 114 05/31/19 14:30 119 35 96 Facial 100 Intake and Output 05/31/19 06/01/19 19:00 07:00 Intake Total 1159.916 ml 426.250 ml Output Total 550 ml 500 ml Balance 609.916 ml -73.750 ml Intake IV Total 1159.916 ml 426.250 ml Output Urine Total 550 ml 500 ml # Bowel Movements 1 1 HEENT: atraumatic, mucous membranes moist Respiratory/Chest: crackles/rales Cardiovascular: normal rate, regular rhythm Abdomen: soft, non tender Extremities: no edema Neurologic/Psychiatric: alert Microbiology Date/Time Source Procedure Growth Status 05/29/19 18:40 Blood Blood Culture - Preliminary NO GROWTH AFTER 48 HOURS Resulted 05/29/19 18:35 Blood Blood Culture - Preliminary NO GROWTH AFTER 48 HOURS Resulted 05/29/19 21:00 Nasal Nares MRSA Culture - Final Staphylococcus Aureus - Mrsa Complete 05/29/19 21:00 Rectum VRE Culture - Final Enterococcus Faecalis - Vre Complete Laboratory Tests 05/31/19 19:20: Vancomycin Level Trough 9.9 06/01/19 05:20: White Blood Count 17.2H, Red Blood Count 3.26L, Hemoglobin 10.8L, Hematocrit 31.8L, Mean Corpuscular Volume 97, Mean Corpuscular Hemoglobin 33.2H, Mean Corpuscular Hemoglobin Concent 34.1, Red Cell Distribution Width 12.2, Platelet Count 334, Mean Platelet Volume 5.7L, Neutrophils (%) (Auto) 82.7H, Lymphocytes (%) (Auto) 9.9L, Monocytes (%) (Auto) 6.6, Eosinophils (%) (Auto) 0.2, Basophils (%) (Auto) 0.6, Erythrocyte Sedimentation Rate 119H, Prothrombin Time 10.8, Prothromb Time International Ratio 1.0, Activated Partial Thromboplast Time 30, Sodium Level 137, Potassium Level 3.7, Chloride Level 103, Carbon Dioxide Level 27, Anion Gap 7, Blood Urea Nitrogen 9, Creatinine 0.8, Estimat Glomerular Filtration Rate > 60, Glucose Level 98, Calcium Level 8.8, Total Bilirubin 0.6, Aspartate Amino Transf (AST/SGOT) 35, Alanine Aminotransferase ( ALT/SGPT) 69, Alkaline Phosphatase 60, C-Reactive Protein, Quantitative 29.8H, Total Protein 7.2, Albumin 1.9L, Globulin 5.3, Albumin/Globulin Ratio 0.4L, Amylase Level 45, Lipase 67L 06/01/19 08:55: Arterial Blood pH 7.406, Arterial Blood Partial Pressure CO2 41.5, Arterial Blood Partial Pressure O2 57.3L, Arterial Blood HCO3 25.5, Arterial Blood Oxygen Saturation 91.9L, Arterial Blood Base Excess 0.7, Jonathan Test Positive Current Medications Medications (Trade) Dose Ordered Sig/Kendra Route PRN Reason Start Time Stop Time Status Last Admin Dose Admin Acetaminophen (Tylenol) 650 mg Q6H PRN RECTAL Mild Pain (Pain Scale 1-3) 05/31/19 01:15 06/30/19 01:14 05/31/19 21:17 Acetylcysteine (Mucomyst) 100 mg Q4HRT [facility] 05/31/19 17:00 06/30/19 16:59 06/01/19 11:13 Albuterol/ Ipratropium (Albuterol/ Ipratropium) 3 ml Q4HRT [facility] 05/31/19 17:00 06/05/19 16:59 06/01/19 11:13 Ascorbic Acid (Vitamin C) 500 mg DAILY ORAL 05/31/19 09:00 06/30/19 08:59 Bisacodyl (Dulcolax) 10 mg DAILYPRN PRN RECTAL constipation 05/31/19 10:45 06/29/19 10:44 Cyanocobalamin (Vitamin B-12 Tab) 100 mcg DAILY ORAL 05/31/19 09:00 06/30/19 08:59 Docusate Sodium (Colace) 100 mg THREE TIMES A DAY ORAL 05/31/19 09:00 06/29/19 12:59 Famotidine (Pepcid I.v.) 20 mg Q12HR IVP 05/31/19 09:00 06/30/19 08:59 06/01/19 09:09 Ferrous Sulfate (Feosol) 325 mg DAILY ORAL 05/31/19 09:00 06/30/19 08:59 Heparin Sodium (Porcine) (Heparin 5000 units/ml) 5,000 units EVERY 12 HOURS SUBQ 05/31/19 09:00 06/29/19 08:59 06/01/19 09:08 Levothyroxine Sodium (Synthroid) 25 mcg TuThSa@0630 ORAL 06/02/19 06:30 07/02/19 06:29 Levothyroxine Sodium (Synthroid) 50 mcg SuMoWeFr@0630 ORAL 05/31/19 06:30 06/30/19 06:29 Lorazepam (Ativan 2mg/ml 1ml) 1 mg EVERY 6 HOURS PRN IV For Anxiety 05/31/19 06:00 06/05/19 23:14 Megestrol Acetate (Megace) 400 mg DAILY ORAL 05/31/19 09:00 06/30/19 08:59 Midodrine (Pro-Amatine) 5 mg TIDPRN PRN ORAL SBP<90 05/31/19 13:00 06/29/19 12:59 Piperacillin Sod/ Tazobactam Sod 3.375 gm/Dextrose 110 ml @ 27.5 mls/hr Q8HR IVPB 05/31/19 06:00 06/06/19 13:59 06/01/19 05:33 Vancomycin HCl (Vanco rx to dose) 1 ea DAILY PRN MISC Per rx protocol 05/31/19 09:00 06/28/19 23:14 Vancomycin HCl 1 gm/Sodium Chloride 275 ml @ 183.708 mls/hr Q12H IVPB 05/31/19 08:00 06/04/19 19:59 06/01/19 09:09 Wisam Mccormack MD Jun 01, 2019 12:42
--- NOTE | 2019-06-01 12:46 | Infectious Diseases Prog Note ---
Assessment/Plan Assessment/Plan Full consult dictated: A) 1) pna, sepsis, leukocytosis, fevers 2) pmh noted 3) allergies - nsaids and ketamine P) 1) zosyn and vancomycin 2) check cultures, labs and chest x-ray 3) will f/u 4) thanks Subjective Allergies: Coded Allergies: KETAMINE (Verified Allergy, Unknown, 05/29/19) NSAIDS (NON-STEROIDAL ANTI-INFLAMMA (Verified Allergy, Unknown, 05/29/19) Objective Vital Signs Last 24 Hour Vital Signs Date Time Temp Pulse Resp B/P (MAP) Pulse Ox O2 Delivery O2 Flow Rate FiO2 06/01/19 11:30 96 High Flow 40.0 50 06/01/19 09:05 106 32 98 Full Face 80 06/01/19 08:00 100 06/01/19 08:00 Bi-pap 06/01/19 08:00 115 06/01/19 08:00 99.5 117 32 95/64 (74) 96 06/01/19 07:55 101 29 99 Full Face 100 112 29 99 Bi-Pap 100 06/01/19 07:55 99 Bi-Pap 100 06/01/19 05:15 109 32 98 Facial 80 06/01/19 04:00 Bi-pap 06/01/19 04:00 100 06/01/19 04:00 99.8 118 24 118/64 (82) 96 06/01/19 03:43 114 06/01/19 03:27 108 30 99 Facial 80 108 30 99 Bi-Pap 80 06/01/19 01:13 103 35 98 Facial 100 06/01/19 00:00 99.3 112 28 132/67 (88) 94 06/01/19 00:00 119 06/01/19 00:00 Bi-pap 05/31/19 23:02 112 29 99 Facial 100 118 31 99 Bi-Pap 100 05/31/19 21:47 99.8 05/31/19 21:05 118 31 99 Facial 100 05/31/19 20:00 100.4 125 30 104/56 (72) 98 05/31/19 20:00 Bi-pap 05/31/19 20:00 100 05/31/19 19:52 112 29 99 Facial 100 112 29 99 Bi-Pap 100 05/31/19 19:52 99 Bi-Pap 100 05/31/19 19:48 126 05/31/19 17:30 114 36 97 Facial 100 118 32 97 Bi-Pap 100 05/31/19 16:00 50 05/31/19 16:00 Bi-pap 05/31/19 16:00 99.9 122 26 94/57 (69) 99 05/31/19 15:24 114 05/31/19 14:30 119 35 96 Facial 100 Height (Feet): 5 Height (Inches): 1.00 Weight (Pounds): 130 Microbiology Date/Time Source Procedure Growth Status 05/29/19 18:40 Blood Blood Culture - Preliminary NO GROWTH AFTER 48 HOURS Resulted 05/29/19 18:35 Blood Blood Culture - Preliminary NO GROWTH AFTER 48 HOURS Resulted 05/29/19 21:00 Nasal Nares MRSA Culture - Final Staphylococcus Aureus - Mrsa Complete 05/29/19 21:00 Rectum VRE Culture - Final Enterococcus Faecalis - Vre Complete Laboratory Tests Test 05/31/19 19:20 06/01/19 05:20 06/01/19 08:55 Vancomycin Level Trough 9.9 ug/mL (5.0-12.0) White Blood Count 17.2 K/UL (4.8-10.8) H Red Blood Count 3.26 M/UL (4.70-6.10) L Hemoglobin 10.8 G/DL (14.2-18.0) L Hematocrit 31.8 % (42.0-52.0) L Mean Corpuscular Volume 97 FL (80-99) Mean Corpuscular Hemoglobin 33.2 PG (27.0-31.0) H Mean Corpuscular Hemoglobin Concent 34.1 G/DL (32.0-36.0) Red Cell Distribution Width 12.2 % (11.6-14.8) Platelet Count 334 K/UL (150-450) Mean Platelet Volume 5.7 FL (6.5-10.1) L Neutrophils (%) (Auto) 82.7 % (45.0-75.0) H Lymphocytes (%) (Auto) 9.9 % (20.0-45.0) L Monocytes (%) (Auto) 6.6 % (1.0-10.0) Eosinophils (%) (Auto) 0.2 % (0.0-3.0) Basophils (%) (Auto) 0.6 % (0.0-2.0) Erythrocyte Sedimentation Rate 119 MM/HR (0-20) H Prothrombin Time 10.8 SEC (9.30-11.50) Prothromb Time International Ratio 1.0 (0.9-1.1) Activated Partial Thromboplast Time 30 SEC (23-33) Sodium Level 137 MMOL/L (136-145) Potassium Level 3.7 MMOL/L (3.5-5.1) Chloride Level 103 MMOL/L (98-107) Carbon Dioxide Level 27 MMOL/L (21-32) Anion Gap 7 mmol/L (5-15) Blood Urea Nitrogen 9 mg/dL (7-18) Creatinine 0.8 MG/DL (0.55-1.30) Estimat Glomerular Filtration Rate > 60 mL/min (>60) Glucose Level 98 MG/DL (74-106) Calcium Level 8.8 MG/DL (8.5-10.1) Total Bilirubin 0.6 MG/DL (0.2-1.0) Aspartate Amino Transf (AST/SGOT) 35 U/L (15-37) Alanine Aminotransferase (ALT/SGPT) 69 U/L (12-78) Alkaline Phosphatase 60 U/L (46-116) C-Reactive Protein, Quantitative 29.8 mg/dL (0.00-0.90) H Total Protein 7.2 G/DL (6.4-8.2) Albumin 1.9 G/DL (3.4-5.0) L Globulin 5.3 g/dL Albumin/Globulin Ratio 0.4 (1.0-2.7) L Amylase Level 45 U/L (25-115) Lipase 67 U/L (73-393) L Arterial Blood pH 7.406 (7.350-7.450) Arterial Blood Partial Pressure CO2 41.5 mmHg (35.0-45.0) Arterial Blood Partial Pressure O2 57.3 mmHg (75.0-100.0) L Arterial Blood HCO3 25.5 mmol/L (22.0-26.0) Arterial Blood Oxygen Saturation 91.9 % (95-100) L Arterial Blood Base Excess 0.7 (-2-2) Jonathan Test Positive Current Medications Medications (Trade) Dose Ordered Sig/Kendra Route PRN Reason Start Time Stop Time Status Last Admin Dose Admin Acetaminophen (Tylenol) 650 mg Q6H PRN RECTAL Mild Pain (Pain Scale 1-3) 05/31/19 01:15 06/30/19 01:14 05/31/19 21:17 Acetylcysteine (Mucomyst) 100 mg Q4HRT N 05/31/19 17:00 06/30/19 16:59 06/01/19 11:13 Albuterol/ Ipratropium (Albuterol/ Ipratropium) 3 ml Q4HRT N 05/31/19 17:00 06/05/19 16:59 06/01/19 11:13 Ascorbic Acid (Vitamin C) 500 mg DAILY ORAL 05/31/19 09:00 06/30/19 08:59 Bisacodyl (Dulcolax) 10 mg DAILYPRN PRN RECTAL constipation 05/31/19 10:45 06/29/19 10:44 Cyanocobalamin (Vitamin B-12 Tab) 100 mcg DAILY ORAL 05/31/19 09:00 06/30/19 08:59 Docusate Sodium (Colace) 100 mg THREE TIMES A DAY ORAL 05/31/19 09:00 06/29/19 12:59 Famotidine (Pepcid I.v.) 20 mg Q12HR IVP 05/31/19 09:00 06/30/19 08:59 06/01/19 09:09 Ferrous Sulfate (Feosol) 325 mg DAILY ORAL 05/31/19 09:00 06/30/19 08:59 Heparin Sodium (Porcine) (Heparin 5000 units/ml) 5,000 units EVERY 12 HOURS SUBQ 05/31/19 09:00 06/29/19 08:59 06/01/19 09:08 Levothyroxine Sodium (Synthroid) 25 mcg TuThSa@0630 ORAL 06/02/19 06:30 07/02/19 06:29 Levothyroxine Sodium (Synthroid) 50 mcg SuMoWeFr@0630 ORAL 05/31/19 06:30 06/30/19 06:29 Lorazepam (Ativan 2mg/ml 1ml) 1 mg EVERY 6 HOURS PRN IV For Anxiety 05/31/19 06:00 06/05/19 23:14 Megestrol Acetate (Megace) 400 mg DAILY ORAL 05/31/19 09:00 06/30/19 08:59 Midodrine (Pro-Amatine) 5 mg TIDPRN PRN ORAL SBP<90 05/31/19 13:00 06/29/19 12:59 Piperacillin Sod/ Tazobactam Sod 3.375 gm/Dextrose 110 ml @ 27.5 mls/hr Q8HR IVPB 05/31/19 06:00 06/06/19 13:59 06/01/19 05:33 Vancomycin HCl (Vanco rx to dose) 1 ea DAILY PRN MISC Per rx protocol 05/31/19 09:00 06/28/19 23:14 Vancomycin HCl 1 gm/Sodium Chloride 275 ml @ 183.708 mls/hr Q12H IVPB 05/31/19 08:00 06/04/19 19:59 06/01/19 09:09 Rafia Rand MD Jun 01, 2019 12:46
--- NOTE | 2019-06-01 13:59 | General Progress Note ---
Assessment/Plan Problem List: (1) Severe sepsis ICD Codes: A41.9 - Sepsis, unspecified organism; R65.20 - Severe sepsis without septic shock SNOMED: 28445954 (2) Acute on chronic respiratory failure with hypoxia and hypercapnia ICD Codes: J96.21 - Acute and chronic respiratory failure with hypoxia; J96.22 - Acute and chronic respiratory failure with hypercapnia SNOMED: 90364331623219 (3) Tachycardia ICD Codes: R00.0 - Tachycardia, unspecified SNOMED: 1844314 (4) Fever ICD Codes: R50.9 - Fever, unspecified SNOMED: 093757489 (5) CHF (congestive heart failure) ICD Codes: I50.9 - Heart failure, unspecified SNOMED: 39376360 (6) Iron deficiency anemia ICD Codes: D50.9 - Iron deficiency anemia, unspecified SNOMED: 52112082 (7) GERD (gastroesophageal reflux disease) ICD Codes: K21.9 - Gastro-esophageal reflux disease without esophagitis SNOMED: 168378133 (8) HTN (hypertension) ICD Codes: I10 - Essential (primary) hypertension SNOMED: 59035909 (9) Hypothyroid ICD Codes: E03.9 - Hypothyroidism, unspecified SNOMED: 64880066 (10) Pneumonia ICD Codes: J18.9 - Pneumonia, unspecified organism SNOMED: 848455752 (11) Ulcer of right heel ICD Codes: L97.419 - Non-pressure chronic ulcer of right heel and midfoot with unspecified severity SNOMED: 489176269 Status: deteriorating, fever Assessment/Plan: Dwayne Gibson is a 54 yo man with PMH of Down's syndrome (nonverbal and bedbound at baseline), CHF (unknown EF), HTN, HLD, iron deficiency anemia, hypothyroid, GERD, , and bilateral foot pressure ulcers who presented from [facility] with fever, cough, and hypoxia, found with Tm 100.5, leukocytosis with left shift, and CXR suggestive of possible bilateral infiltrate, admitted for acute on chronic hypoxemic respiratory failure and sepsis 2/2 HCAP. #Acute on chronic hypoxemic/hypercapnic respiratory failure (baseline NC 2-4L) - improving #Sepsis 2/2 HCAP #elevated ESR/CRP > Tm 100.5 on admission, WBC 20.5 with bands, RR to 30s, tachycardic to 130s > Lactate 1.2 > ABG on admission 7.4/39/73/24 > BCX negative to date > F/U sputum CX > ESR 119, CRp 29, osteo of ulcer? > S/p IVF NS 30cc/kg sepsis bolus and gentle continuous D5NS IVF. Will d/c IVF today given increased PVC on CXR and worsening respiratory failure. > Venous duplex negative for DVT - UA not overtly suggestive of UTI - CXR on admission with L>R bibasilar opacities, may represent small pleural effusions with atelectasis vs PNA on L and probable atelectasis on R - s/p vancomycin IV and cefepime IV in ED (05/29-05/30). Continue IV abx for HCAP with zosyn 4.5gm IV q6hrs (05/30- ) and vancomycin 1gm IV q12hrs (05/29- ) (changed to zosyn to cover potential aspiration/anaerobes given patient's lethargy). Plan for 5-7 days treatment pending clinical course. - Wean oxygen to keep O2 sat >/=92%. Requiring continuous BiPAP at this time for increased WOB and tachypnea. - Pulm/crit care consulted, appreciate recs. Nebs scheduled q4hrs with suction q4hrs. BiPAP settings increased to 15/8. - Infectious disease consulted Dr. Serrano. Appreciate recommendations - Appreciate general surgery recommendations: Dr. Ruffin - Tylenol 650mg PO q6hrs PRN pain or fever - Duonebs q4hrs ATC #hx HTN but now requiring PRN midodrine at SNF for intermittent hypotension #hx HFpEF (LVEF 55%) #hx #hx HLD - EKG with sinus tachycardia, TWI in lateral leads (no prior in chart for comparison). Troponin negative on admission. Low suspicion for acute ACS - Tachycardia 2/2 sepsis and fever, treat with abx and gentle IVF as above - TSH 3.7 - Not overtly fluid overloaded on exam although with some atelectasis/mild PVCs/ small effusion on CXR, but given sepsis will hold off on diuresis, caution with IVF - holding further fluids - Continue home midodrine 5mg PO TID PRN SBP<90 - Can resume home statin once able to tolerate PO #Encephalopathy in setting of sepsis and underlying Down's syndrome - Baseline nonverbal and bedbound - Treat sepsis as above - Limit sedating medications as able - Keep NPO except for meds for now pending APPLICATION ENGINEER swallow eval #Mild transaminitis - resolved - AST 38 and ALT 100 on admission, normalized today - F/U hepatitis panel, RUQ U/S. - Can resume home statin once able to tolerate PO #Chronic hyponatremia - improving - Na 134 on admission, now 136 - Per records from SNF, Na was 132 on 05/05/19 - Monitor BMP #hx Hypothyroid - TSH 3.7 - Continue home levothyroxine 25mcg PO TThSat and 50mcg PO SunMWF - May need to change to IV if patient remains unable to tolerate PO #hx GERD - Pepcid for home omeprazole #hx iron deficiency anemia - H/H stable - Continue home ferrous sulfate 325mg PO daily #Right heel wound - Present on admission - Appreciate wound care/surgery consult - Wound care as per recs FEN IVF: None given worsening respiratory failure and vascular congestion DVT ppx: Heparin subq GI ppx: Pepcid Code Status: DNR/DNI with limited interventions Time of my involvement, the patient's condition was critical with high potential for and/or physiologic deterioration secondary to acute hypoxic/ hypercapneic respiratory failure 2/2 pneumonia, severe sepsis, as delineated in the note above. On the above date of service, I spent a total of 41 minutes in the ICU evaluating, managing, and providing critical care services to this patient, including time spent documenting these activities, counseling patient/family, and coordinating care. Critical care services performed include: -Telemetry review -Hemodynamic measurement interpretation -Laboratory data review and interpretation -Ventilator setting reviewed, management, and adjustment -Discussion of patient's care with primary medical team, surgical team, and/or consulting service -Decision to obtain further radiologic evaluation, after consideration of the risk/benefit ratio -Review of most recent microbiology results assessment and modification of antimicrobial coverage Plan outlined above discussed with patient/family, MAT WORKER, ICU team, and involved physician/consultants. Subjective Date patient seen: Jun 01, 2019 ROS Limited/Unobtainable: Yes - Patient nonverbal and altered Allergies: Coded Allergies: KETAMINE (Verified Allergy, Unknown, 05/29/19) NSAIDS (NON-STEROIDAL ANTI-INFLAMMA (Verified Allergy, Unknown, 05/29/19) Subjective No acute events overnight per nursing patient continues to be on BiPAP 07/23. ABG this morning shows a pH of 7.406 PCO2 41.5 PO2 57.3 and a bicarb of 25.5 on BiPAP. Patient continues to be altered and nonverbal. Moving all extremities. Objective Last 24 Hour Vital Signs Date Time Temp Pulse Resp B/P (MAP) Pulse Ox O2 Delivery O2 Flow Rate FiO2 06/01/19 11:30 96 High Flow 40.0 50 06/01/19 09:05 106 32 98 Full Face 80 06/01/19 08:00 100 06/01/19 08:00 Bi-pap 06/01/19 08:00 115 06/01/19 08:00 99.5 117 32 95/64 (74) 96 06/01/19 07:55 101 29 99 Full Face 100 112 29 99 Bi-Pap 100 06/01/19 07:55 99 Bi-Pap 100 06/01/19 05:15 109 32 98 Facial 80 06/01/19 04:00 Bi-pap 06/01/19 04:00 100 06/01/19 04:00 99.8 118 24 118/64 (82) 96 06/01/19 03:43 114 06/01/19 03:27 108 30 99 Facial 80 108 30 99 Bi-Pap 80 06/01/19 01:13 103 35 98 Facial 100 06/01/19 00:00 99.3 112 28 132/67 (88) 94 06/01/19 00:00 119 06/01/19 00:00 Bi-pap 05/31/19 23:02 112 29 99 Facial 100 118 31 99 Bi-Pap 100 05/31/19 21:47 99.8 05/31/19 21:05 118 31 99 Facial 100 05/31/19 20:00 100.4 125 30 104/56 (72) 98 05/31/19 20:00 Bi-pap 05/31/19 20:00 100 05/31/19 19:52 112 29 99 Facial 100 112 29 99 Bi-Pap 100 05/31/19 19:52 99 Bi-Pap 100 05/31/19 19:48 126 05/31/19 17:30 114 36 97 Facial 100 118 32 97 Bi-Pap 100 10/13/19 16:00 50 05/31/19 16:00 Bi-pap 05/31/19 16:00 99.9 122 26 94/57 (69) 99 05/31/19 15:24 114 05/31/19 14:30 119 35 96 Facial 100 Intake and Output 05/31/19 06/01/19 19:00 07:00 Intake Total 1159.916 ml 426.250 ml Output Total 550 ml 500 ml Balance 609.916 ml -73.750 ml Intake IV Total 1159.916 ml 426.250 ml Output Urine Total 550 ml 500 ml # Bowel Movements 1 1 Laboratory Tests 05/31/19 19:20: Vancomycin Level Trough 9.9 06/01/19 05:20: White Blood Count 17.2H, Red Blood Count 3.26L, Hemoglobin 10.8L, Hematocrit 31.8L, Mean Corpuscular Volume 97, Mean Corpuscular Hemoglobin 33.2H, Mean Corpuscular Hemoglobin Concent 34.1, Red Cell Distribution Width 12.2, Platelet Count 334, Mean Platelet Volume 5.7L, Neutrophils (%) (Auto) 82.7H, Lymphocytes (%) (Auto) 9.9L, Monocytes (%) (Auto) 6.6, Eosinophils (%) (Auto) 0.2, Basophils (%) (Auto) 0.6, Erythrocyte Sedimentation Rate 119H, Prothrombin Time 10.8, Prothromb Time International Ratio 1.0, Activated Partial Thromboplast Time 30, Sodium Level 137, Potassium Level 3.7, Chloride Level 103, Carbon Dioxide Level 27, Anion Gap 7, Blood Urea Nitrogen 9, Creatinine 0.8, Estimat Glomerular Filtration Rate > 60, Glucose Level 98, Calcium Level 8.8, Total Bilirubin 0.6, Aspartate Amino Transf (AST/SGOT) 35, Alanine Aminotransferase ( ALT/SGPT) 69, Alkaline Phosphatase 60, C-Reactive Protein, Quantitative 29.8H, Total Protein 7.2, Albumin 1.9L, Globulin 5.3, Albumin/Globulin Ratio 0.4L, Amylase Level 45, Lipase 67L 06/01/19 08:55: Arterial Blood pH 7.406, Arterial Blood Partial Pressure CO2 41.5, Arterial Blood Partial Pressure O2 57.3L, Arterial Blood HCO3 25.5, Arterial Blood Oxygen Saturation 91.9L, Arterial Blood Base Excess 0.7, Jonathan Test Positive ESR 119 CRP 29.8 Height (Feet): 5 Height (Inches): 1.00 Weight (Pounds): 130 General Appearance: WD/WN, no apparent distress, alert, confused EENT: PERRL/EOMI Neck: non-tender, normal alignment, supple Cardiovascular: normal peripheral pulses, normal rate, regular rhythm, no JVD Respiratory/Chest: other - Coarse breath sounds bilaterally, no wheezing. Abdomen: normal bowel sounds, non tender, soft Extremities: normal range of motion, non-tender, normal inspection Neurologic: furniture finisher II-XII grossly normal, no motor/sensory deficits, alert, other - Moving all extremities. Skin: other - Bilateral heel ulcers. Right heel ulcer is wet with some mild drainage Joseph Durán D.O. Jun 01, 2019 13:59
--- NOTE | 2019-06-01 14:41 | Surgery Progress Note ---
Surgery Progress Note Subjective Additional Comments Febrile, leukocytosis, elevated ESR and CRP. Chest x-ray noted with consolidation. Objective Last 24 Hour Vital Signs Date Time Temp Pulse Resp B/P (MAP) Pulse Ox O2 Delivery O2 Flow Rate FiO2 06/01/19 12:00 40.0 50 06/01/19 12:00 101.4 125 32 139/79 (99) 92 06/01/19 12:00 Nasal Cannula 40.0 06/01/19 11:30 96 High Flow 40.0 50 06/01/19 09:05 106 32 98 Full Face 80 06/01/19 08:00 100 06/01/19 08:00 Bi-pap 06/01/19 08:00 115 06/01/19 08:00 99.5 117 32 95/64 (74) 96 06/01/19 07:55 101 29 99 Full Face 100 112 29 99 Bi-Pap 100 06/01/19 07:55 99 Bi-Pap 100 06/01/19 05:15 109 32 98 Facial 80 06/01/19 04:00 Bi-pap 06/01/19 04:00 100 06/01/19 04:00 99.8 118 24 118/64 (82) 96 06/01/19 03:43 114 06/01/19 03:27 108 30 99 Facial 80 108 30 99 Bi-Pap 80 06/01/19 01:13 103 35 98 Facial 100 06/01/19 00:00 99.3 112 28 132/67 (88) 94 06/01/19 00:00 119 06/01/19 00:00 Bi-pap 05/31/19 23:02 112 29 99 Facial 100 118 31 99 Bi-Pap 100 05/31/19 21:47 99.8 05/31/19 21:05 118 31 99 Facial 100 05/31/19 20:00 100.4 125 30 104/56 (72) 98 05/31/19 20:00 Bi-pap 05/31/19 20:00 100 05/31/19 19:52 112 29 99 Facial 100 112 29 99 Bi-Pap 100 05/31/19 19:52 99 Bi-Pap 100 05/31/19 19:48 126 05/31/19 17:30 114 36 97 Facial 100 118 32 97 Bi-Pap 100 05/31/19 16:00 50 05/31/19 16:00 Bi-pap 05/31/19 16:00 99.9 122 26 94/57 (69) 99 05/31/19 15:24 114 I&O Intake and Output 05/31/19 06/01/19 19:00 07:00 Intake Total 1159.916 ml 426.250 ml Output Total 550 ml 500 ml Balance 609.916 ml -73.750 ml Intake IV Total 1159.916 ml 426.250 ml Output Urine Total 550 ml 500 ml # Bowel Movements 1 1 Dressing: saturated Wound: other Drains: other Cardiovascular: RSR Respiratory: decreased breath sounds Abdomen: soft, present bowel sounds, non-distended Extremities: no cyanosis, other Laboratory Tests Test 05/31/19 19:20 06/01/19 05:20 06/01/19 08:55 Vancomycin Level Trough 9.9 ug/mL (5.0-12.0) White Blood Count 17.2 K/UL (4.8-10.8) H Red Blood Count 3.26 M/UL (4.70-6.10) L Hemoglobin 10.8 G/DL (14.2-18.0) L Hematocrit 31.8 % (42.0-52.0) L Mean Corpuscular Volume 97 FL (80-99) Mean Corpuscular Hemoglobin 33.2 PG (27.0-31.0) H Mean Corpuscular Hemoglobin Concent 34.1 G/DL (32.0-36.0) Red Cell Distribution Width 12.2 % (11.6-14.8) Platelet Count 334 K/UL (150-450) Mean Platelet Volume 5.7 FL (6.5-10.1) L Neutrophils (%) (Auto) 82.7 % (45.0-75.0) H Lymphocytes (%) (Auto) 9.9 % (20.0-45.0) L Monocytes (%) (Auto) 6.6 % (1.0-10.0) Eosinophils (%) (Auto) 0.2 % (0.0-3.0) Basophils (%) (Auto) 0.6 % (0.0-2.0) Erythrocyte Sedimentation Rate 119 MM/HR (0-20) H Prothrombin Time 10.8 SEC (9.30-11.50) Prothromb Time International Ratio 1.0 (0.9-1.1) Activated Partial Thromboplast Time 30 SEC (23-33) Sodium Level 137 MMOL/L (136-145) Potassium Level 3.7 MMOL/L (3.5-5.1) Chloride Level 103 MMOL/L (98-107) Carbon Dioxide Level 27 MMOL/L (21-32) Anion Gap 7 mmol/L (5-15) Blood Urea Nitrogen 9 mg/dL (7-18) Creatinine 0.8 MG/DL (0.55-1.30) Estimat Glomerular Filtration Rate > 60 mL/min (>60) Glucose Level 98 MG/DL (74-106) Calcium Level 8.8 MG/DL (8.5-10.1) Total Bilirubin 0.6 MG/DL (0.2-1.0) Aspartate Amino Transf (AST/SGOT) 35 U/L (15-37) Alanine Aminotransferase (ALT/SGPT) 69 U/L (12-78) Alkaline Phosphatase 60 U/L (46-116) C-Reactive Protein, Quantitative 29.8 mg/dL (0.00-0.90) H Total Protein 7.2 G/DL (6.4-8.2) Albumin 1.9 G/DL (3.4-5.0) L Globulin 5.3 g/dL Albumin/Globulin Ratio 0.4 (1.0-2.7) L Amylase Level 45 U/L (25-115) Lipase 67 U/L (73-393) L Arterial Blood pH 7.406 (7.350-7.450) Arterial Blood Partial Pressure CO2 41.5 mmHg (35.0-45.0) Arterial Blood Partial Pressure O2 57.3 mmHg (75.0-100.0) L Arterial Blood HCO3 25.5 mmol/L (22.0-26.0) Arterial Blood Oxygen Saturation 91.9 % (95-100) L Arterial Blood Base Excess 0.7 (-2-2) Jonathan Test Positive Plan Problems: (1) Ulcer of right heel Assessment & Plan: This is a 54-year-old male with multiple medical comorbidities who is currently presented for fever and tachycardia. Patient identified to have abnormal decubitus pressure ulcer on right heel. On examination patient has a stage III full-thickness right heel decubitus ulcer periwound intact but mildly macerated. Surrounding erythema. No drainage. No underlying abscess. No bone palpable. No foul odor. Labs noted and identified. No signs of acute active inflammatory or infectious process from this. Patient does have a leukocytosis that significant. Will continue work-up for etiology Will recommend local wound care. Apply Thera honey followed by up to foam dressing daily. We will monitor. Thank you for this consultation we will follow with recommendations (2) Fever Assessment & Plan: Low-grade fevers, tachycardia, leukocytosis, abnormal labs Head to toe skin integrity and wound eval completed as above UA noted chest x-ray noted Possible aspiration pneumonia Continue antibiotics as per infectious disease IV fluids Patient not eating well and currently DNR/DNI and does not have feeding tube. 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 * Increased kcal/prot needs R/T wound healing and wasting as evidenced by pt admitted w/ stage 3 rt heel wound, w/ mild-moderate generalized wasting. CURRENT DIET:NPO PO DIET RECOMMENDATIONS: IF SAFE FOR PO -> liberalized REGULAR/ texture per BATTERY CHECKER + Ensure Enlive TID ENTERAL NUTRITION RECOMMENDATIONS: CONSULT RD IF TF PART OF POC AND INDICATED: PER POLST, NO TF AT THIS TIME ADDITIONAL RECOMMENDATIONS: * Calibrated bedscale wt - bedscale wt per RD= 101lbs vs EMR [id number] * Monitor NPO status, ability to feed - BATTERY CHECKER eval pending, pt on BIPAP, altered. TF indicates no TF at this time * Monitor lytes, replete as needed * Wound healing: once able to feed-> add MVI w/ min x 1, Vit C 500mg QD -> add ZnSO4 220mg QD x 10 days -> Jeremy 1pkt BID as tolerated Alexis Ruffin Jun 01, 2019 14:41
[2019-06-01 15:01] LABS: BASOPHILS % (AUTO) 0.8 % (0.0-2.0); EOSINOPHILS % (AUTO) 0.1 % (0.0-3.0); HEMATOCRIT 33.5 % (42.0-52.0); HEMOGLOBIN 11.4 G/DL (14.2-18.0); LYMPHOCYTES % (AUTO) 7.7 % (20.0-45.0); MEAN CORPUSCULAR VOLUME 98 FL (80-99); MONOCYTES % (AUTO) 7.8 % (1.0-10.0); NEUTROPHILS % (AUTO) 83.6 % (45.0-75.0); PLATELET COUNT 355 K/UL (150-450); RED BLOOD COUNT 3.42 M/UL (4.70-6.10); RED CELL DISTRIBUTION WIDTH 11.9 % (11.6-14.8); WHITE BLOOD COUNT 15.2 K/UL (4.8-10.8)
[2019-06-01 15:13] LABS: ALANINE AMINOTRANSFERASE 68 U/L (12-78); ALBUMIN 1.9 G/DL (3.4-5.0); ALBUMIN/GLOBULIN RATIO 0.3 (1.0-2.7); ALKALINE PHOSPHATASE 62 U/L (46-116); ANION GAP 8 mmol/L (5-15); ASPARTATE AMINO TRANSFERASE 40 U/L (15-37); BILIRUBIN,TOTAL 0.6 MG/DL (0.2-1.0); BLOOD UREA NITROGEN 10 mg/dL (7-18); CALCIUM 9.1 MG/DL (8.5-10.1); CARBON DIOXIDE 27 MMOL/L (21-32); CHLORIDE 102 MMOL/L (98-107); CREATININE 0.8 MG/DL (0.55-1.30); POTASSIUM 3.8 MMOL/L (3.5-5.1); SODIUM 137 MMOL/L (136-145)
[2019-06-01 16:00] VITALS: BP 125/65
[2019-06-01 20:00] VITALS: BP 118/60
[2019-06-02] VITALS: BP 111/58
[2019-06-02] MEDS: Albuterol/Ipratropium 3ml neb HHN SCH ×6 (03:00→23:23)
[2019-06-02 04:00] VITALS: BP 105/66
[2019-06-02] MEDS: Piperacillin/Tazobactam 3.375 GM in D5W 110 ML IVPB SCH ×3 (05:05→22:24)
[2019-06-02 06:19] LABS: PHOSPHORUS 2.7 MG/DL (2.5-4.9)
[2019-06-02] MEDS: Levothyroxine 25mcg tab ORAL SCH (06:30)
[2019-06-02] MEDS ORDERED: Levothyroxine 25mcg tab ORAL SCH (06:30)
[2019-06-02 08:00] VITALS: BP 95/50
[2019-06-02] MEDS: Vancomycin 1 GM in NS 275 ML IVPB SCH ×2 (08:21→20:46)
[2019-06-02] MEDS: Docusate 100mg cap ORAL SCH ×3 (08:43→18:00)
[2019-06-02] MEDS: Megace 400mg/10ml Susp ORAL SCH (08:43)
[2019-06-02] MEDS: Ascorbic Acid 500mg tab ORAL SCH (08:44)
[2019-06-02] MEDS: Vitamin B-12 100mcg tab ORAL SCH (08:44)
[2019-06-02] MEDS: Zinc Sulfate 220mg cap ORAL SCH (08:44)
[2019-06-02] MEDS: Heparin 5000 units/ml inj SUBQ SCH ×2 (09:20→20:48)
--- NOTE | 2019-06-02 11:44 | Pulmonology Progress Note ---
Assessment/Plan Problems: (1) Pneumonia (2) Acute and chronic respiratory failure with hypoxia (3) Severe sepsis (4) Fever (5) Down's syndrome (6) Tachycardia (7) Hypothyroid (8) HLD (hyperlipidemia) (9) HTN (hypertension) (10) GERD (gastroesophageal reflux disease) (11) Iron deficiency anemia (12) CHF (congestive heart failure) Assessment/Plan Problem List: 1. Suspected aspiration with dense right lower lobe pneumonia. 2. Hypercapnic hypoxemic respiratory failure. 3. Down syndrome. 4. Hypertension. 5. Hyperlipidemia. 6. Gastroesophageal reflux disease. 7. Decubitus ulcers. Plan: -BiPAP 12/5 qhs and prn - ENCOURAGE NOCTURNAL USAGE -Titrate high flow nasal cannula -cont abx per ID -monitor labs -monitor CXR Case d/w RN Subjective Allergies: Coded Allergies: KETAMINE (Verified Allergy, Unknown, 05/29/19) NSAIDS (NON-STEROIDAL ANTI-INFLAMMA (Verified Allergy, Unknown, 05/29/19) Subjective Tm 99.9 on HFO2 40% VSS + cough + SOB no FC Duplex neg CXR noted MANAGER ETL eval noted Objective Last 24 Hour Vital Signs Date Time Temp Pulse Resp B/P (MAP) Pulse Ox O2 Delivery O2 Flow Rate FiO2 06/02/19 10:47 85 High Flow 40.0 60 06/02/19 10:47 110 20 94 High Flow 40.0 60 108 20 95 06/02/19 08:00 40.0 60 06/02/19 08:00 Nasal Cannula 40.0 06/02/19 08:00 99.9 120 28 95/50 (65) 94 06/02/19 07:48 92 06/02/19 07:47 111 22 93 High Flow 40.0 60 110 22 94 06/02/19 07:41 92 High Flow 40.0 60 06/02/19 04:00 40.0 60 06/02/19 04:00 Nasal Cannula 40.0 06/02/19 04:00 99.0 113 24 105/66 (79) 94 06/02/19 03:36 114 06/02/19 03:09 96 High Flow 40.0 60 06/02/19 00:00 Nasal Cannula 40.0 06/02/19 00:00 99.1 108 24 111/58 (75) 94 10/14/19 23:33 113 06/01/19 22:57 104 18 96 High Flow 40.0 50 101 18 94 06/01/19 22:56 94 High Flow 40.0 60 06/01/19 20:00 96 High Flow 40.0 60 06/01/19 20:00 40.0 60 06/01/19 20:00 Nasal Cannula 40.0 06/01/19 20:00 114 18 97 High Flow 40.0 50 111 18 92 06/01/19 20:00 99.6 104 24 118/60 (79) 91 06/01/19 19:04 108 06/01/19 16:00 121 06/01/19 16:00 Nasal Cannula 40.0 06/01/19 16:00 99.8 121 32 125/65 (85) 93 06/01/19 16:00 40.0 60 06/01/19 15:17 90 18 95 High Flow 40.0 40 89 18 94 06/01/19 15:17 95 High Flow 40.0 60 06/01/19 12:00 126 06/01/19 12:00 40.0 50 06/01/19 12:00 101.4 125 32 139/79 (99) 92 06/01/19 12:00 Nasal Cannula 40.0 Intake and Output 06/01/19 06/02/19 19:00 07:00 Intake Total 587.416 ml 385.000 ml Output Total 400 ml 400 ml Balance 187.416 ml -15.000 ml Intake IV Total 587.416 ml 385.000 ml Output Urine Total 400 ml 400 ml # Voids 2 # Bowel Movements 1 1 General Appearance: no acute distress, other - developmental delay HEENT: normocephalic, mucous membranes moist Respiratory/Chest: rhonchi Cardiovascular: normal peripheral pulses, normal rate, regular rhythm Abdomen: normal bowel sounds, soft, non tender, no organomegaly, non distended , no mass Extremities: no cyanosis, no clubbing, no edema Laboratory Tests 06/01/19 14:30: White Blood Count 15.2H, Red Blood Count 3.42L, Hemoglobin 11.4L, Hematocrit 33.5L, Mean Corpuscular Volume 98, Mean Corpuscular Hemoglobin 33.3H, Mean Corpuscular Hemoglobin Concent 33.9, Red Cell Distribution Width 11.9, Platelet Count 355, Mean Platelet Volume 5.6L, Neutrophils (%) (Auto) 83.6H, Lymphocytes (%) (Auto) 7.7L, Monocytes (%) (Auto) 7.8, Eosinophils (%) (Auto) 0.1, Basophils (%) (Auto) 0.8, Sodium Level 137, Potassium Level 3.8, Chloride Level 102, Carbon Dioxide Level 27, Anion Gap 8, Blood Urea Nitrogen 10, Creatinine 0.8, Estimat Glomerular Filtration Rate > 60, Glucose Level 102, Calcium Level 9.1, Total Bilirubin 0.6, Aspartate Amino Transf (AST/SGOT) 40H, Alanine Aminotransferase (ALT/SGPT) 68, Alkaline Phosphatase 62, Total Protein 7.4, Albumin 1.9L, Globulin 5.5, Albumin/Globulin Ratio 0.3L 06/02/19 03:45: Phosphorus Level 2.7, Magnesium Level 1.7L Current Medications Medications (Trade) Dose Ordered Sig/Kendra Route PRN Reason Start Time Stop Time Status Last Admin Dose Admin Acetaminophen (Tylenol) 650 mg Q6H PRN RECTAL Mild Pain (Pain Scale 1-3) 05/31/19 01:15 06/30/19 01:14 05/31/19 21:17 Acetylcysteine (Mucomyst) 100 mg Q4HRT N 05/31/19 17:00 06/30/19 16:59 06/02/19 10:44 Albuterol/ Ipratropium (Albuterol/ Ipratropium) 3 ml Q4HRT HHN 05/31/19 17:00 06/05/19 16:59 06/02/19 10:44 Ascorbic Acid (Vitamin C) 500 mg DAILY ORAL 06/02/19 09:00 07/02/19 08:59 Bisacodyl (Dulcolax) 10 mg DAILYPRN PRN RECTAL constipation 05/31/19 10:45 06/29/19 10:44 Cyanocobalamin (Vitamin B-12 Tab) 100 mcg DAILY ORAL 05/31/19 09:00 06/30/19 08:59 Dextrose/ Electrolytes 1,000 ml @ 75 mls/hr [id number] IV 06/02/19 13:00 07/02/19 12:59 Docusate Sodium (Colace) 100 mg THREE TIMES A DAY ORAL 05/31/19 09:00 06/29/19 12:59 Famotidine (Pepcid I.v.) 20 mg Q12HR IVP 05/31/19 09:00 06/30/19 08:59 06/02/19 09:05 Ferrous Sulfate (Feosol) 325 mg DAILY ORAL 05/31/19 09:00 06/30/19 08:59 Heparin Sodium (Porcine) (Heparin 5000 units/ml) 5,000 units EVERY 12 HOURS SUBQ 05/31/19 09:00 06/29/19 08:59 06/02/19 09:20 Levothyroxine Sodium (Synthroid) 25 mcg TuThSa@0630 ORAL 06/02/19 06:30 07/02/19 06:29 Levothyroxine Sodium (Synthroid) 50 mcg SuMoWeFr@0630 ORAL 05/31/19 06:30 06/30/19 06:29 Lorazepam (Ativan 2mg/ml 1ml) 1 mg EVERY 6 HOURS PRN IV For Anxiety 05/31/19 06:00 06/05/19 23:14 Megestrol Acetate (Megace) 400 mg DAILY ORAL 05/31/19 09:00 06/30/19 08:59 Midodrine (Pro-Amatine) 5 mg TIDPRN PRN ORAL SBP<90 05/31/19 13:00 06/29/19 12:59 Multivitamins (Multivitamins) 1 tab DAILY ORAL 06/02/19 09:00 07/02/19 08:59 Piperacillin Sod/ Tazobactam Sod 3.375 gm/Dextrose 110 ml @ 27.5 mls/hr Q8HR IVPB 05/31/19 06:00 06/06/19 13:59 06/02/19 05:05 Vancomycin HCl (Vanco rx to dose) 1 ea DAILY PRN MISC Per rx protocol 05/31/19 09:00 06/28/19 23:14 Vancomycin HCl 1 gm/Sodium Chloride 275 ml @ 183.708 mls/hr Q12H IVPB 05/31/19 08:00 06/04/19 19:59 06/02/19 08:21 Zinc Sulfate (Zinc Sulfate) 220 mg DAILY ORAL 06/02/19 09:00 06/12/19 08:59 Yovani Luevano MD Jun 02, 2019 11:44
[2019-06-02 12:00] VITALS: BP 108/56
[2019-06-02] MEDS: D5 1/2NS w/KCl 20mEq 1,000 ML IV SCH (13:04)
--- NOTE | 2019-06-02 13:48 | General Progress Note ---
Assessment/Plan Problem List: (1) Severe sepsis ICD Codes: A41.9 - Sepsis, unspecified organism; R65.20 - Severe sepsis without septic shock SNOMED: 81314157 (2) Acute on chronic respiratory failure with hypoxia and hypercapnia ICD Codes: J96.21 - Acute and chronic respiratory failure with hypoxia; J96.22 - Acute and chronic respiratory failure with hypercapnia SNOMED: 78491390653244 (3) Tachycardia ICD Codes: R00.0 - Tachycardia, unspecified SNOMED: 8374122 (4) Fever ICD Codes: R50.9 - Fever, unspecified SNOMED: 322985929 (5) CHF (congestive heart failure) ICD Codes: I50.9 - Heart failure, unspecified SNOMED: 74765449 (6) Iron deficiency anemia ICD Codes: D50.9 - Iron deficiency anemia, unspecified SNOMED: 64633483 (7) GERD (gastroesophageal reflux disease) ICD Codes: K21.9 - Gastro-esophageal reflux disease without esophagitis SNOMED: 650407419 (8) HTN (hypertension) ICD Codes: I10 - Essential (primary) hypertension SNOMED: 88829857 (9) Hypothyroid ICD Codes: E03.9 - Hypothyroidism, unspecified SNOMED: 06095212 (10) Pneumonia ICD Codes: J18.9 - Pneumonia, unspecified organism SNOMED: 035717154 (11) Ulcer of right heel ICD Codes: L97.419 - Non-pressure chronic ulcer of right heel and midfoot with unspecified severity SNOMED: 988101432 Status: deteriorating, fever Assessment/Plan: Dwayne Gibson is a 54 yo man with PMH of Down's syndrome (nonverbal and bedbound at baseline), CHF (unknown EF), HTN, HLD, iron deficiency anemia, hypothyroid, GERD, , and bilateral foot pressure ulcers who presented from [facility] with fever, cough, and hypoxia, found with Tm 100.5, leukocytosis with left shift, and CXR suggestive of possible bilateral infiltrate, admitted for acute on chronic hypoxemic respiratory failure and sepsis 2/2 HCAP. #Acute on chronic hypoxemic/hypercapnic respiratory failure (baseline NC 2-4L) 2 /2 HCAP and right pleural effusion- improving #Sepsis 2/2 HCAP #elevated ESR/CRP > Tm 100.5 on admission, WBC 20.5 with bands, RR to 30s, tachycardic to 130s > Lactate 1.2 > ABG on admission 7.4/39/73/24 > BCX negative to date > F/U sputum CX > ESR 119, CRp 29, osteo of ulcer? > S/p IVF NS 30cc/kg sepsis bolus and gentle continuous D5NS IVF. Will d/c IVF today given increased PVC on CXR and worsening respiratory failure. > Venous duplex negative for DVT > CXR 06/01/19 with worsening right sided pleural effusion - UA not overtly suggestive of UTI - CXR on admission with L>R bibasilar opacities, may represent small pleural effusions with atelectasis vs PNA on L and probable atelectasis on R - s/p vancomycin IV and cefepime IV in ED (05/29-05/30). Continue IV abx for HCAP with zosyn 4.5gm IV q6hrs (05/30- ) and vancomycin 1gm IV q12hrs (05/29- ) (changed to zosyn to cover potential aspiration/anaerobes given patient's lethargy). Plan for 5-7 days treatment pending clinical course. - Wean oxygen to keep O2 sat >/=92%. Continues to require high oxygen 60 percent FiO2 high flow - Pulm/crit care consulted, appreciate recs. Nebs scheduled q4hrs with suction q4hrs. -Will evaluate whether patient needs thoracentesis today - Infectious disease consulted Dr. Serrano. Appreciate recommendations - Appreciate general surgery recommendations: Dr. Ruffin - Tylenol 650mg PO q6hrs PRN pain or fever - Duonebs q4hrs ATC -Follow-up on sputum and blood cultures #hx HTN but now requiring PRN midodrine at SNF for intermittent hypotension #hx HFpEF (LVEF 55%) #hx #hx HLD - EKG with sinus tachycardia, TWI in lateral leads (no prior in chart for comparison). Troponin negative on admission. Low suspicion for acute ACS - Tachycardia 2/2 sepsis and fever, treat with abx and gentle IVF as above - TSH 3.7 - Not overtly fluid overloaded on exam although with some atelectasis/mild PVCs/ small effusion on CXR, but given sepsis will hold off on diuresis, caution with IVF - holding further fluids - Continue home midodrine 5mg PO TID PRN SBP<90 - Can resume home statin once able to tolerate PO #Encephalopathy in setting of sepsis and underlying Down's syndrome -appears to be back to baseline - Baseline nonverbal and bedbound - Treat sepsis as above - Limit sedating medications as able - Keep NPO except for meds for now pending AFFIRMATIVE ACTION SPECIALIST swallow eval-unable to perform as patient is on high flow nasal cannula #dysphagia -Unable to perform swallow study as patient is still on high flow nasal cannula -Post states no artificial tube feeding. Will attempt to confirm with family. -Multiple attempts were made to call the patient's brother Donnie Sheriff and the other contact in the chart Emely Rascon. Unable to reach -Will ask director social for assistance. #Mild transaminitis - resolved - AST 38 and ALT 100 on admission, normalized today - F/U hepatitis panel, RUQ U/S. - Can resume home statin once able to tolerate PO #Chronic hyponatremia - improving - Na 134 on admission, now 136 - Per records from SNF, Na was 132 on 05/05/19 - Monitor BMP #hx Hypothyroid - TSH 3.7 - Continue home levothyroxine 25mcg PO TThSat and 50mcg PO SunMWF - May need to change to IV if patient remains unable to tolerate PO #hx GERD - Pepcid for home omeprazole #hx iron deficiency anemia - H/H stable - Continue home ferrous sulfate 325mg PO daily #Right heel wound - Present on admission - Appreciate wound care/surgery consult - Wound care as per recs FEN IVF: Maintenance, d51/2NS @75 cc/hr DVT ppx: Heparin subq GI ppx: Pepcid Code Status: DNR/DNI with limited interventions Reason for continued hospitalization: Acute hypoxic respiratory failure 38 minutes spent on this encounter. Discussed with pulmonology, RN, and patient. > 50% spent on counseling and care coordination. Time of note may not reflect time patient was seen. Subjective Date patient seen: Jun 02, 2019 ROS Limited/Unobtainable: Yes - Patient nonverbal at baseline Allergies: Coded Allergies: KETAMINE (Verified Allergy, Unknown, 05/29/19) NSAIDS (NON-STEROIDAL ANTI-INFLAMMA (Verified Allergy, Unknown, 05/29/19) Subjective No acute events overnight per nursing. Patient transitioned to high flow nasal cannula 40 L at 60% FiO2. Patient is more alert today. He continues to have cough yellow thick secretions. Moving all extremities. Objective Last 24 Hour Vital Signs Date Time Temp Pulse Resp B/P (MAP) Pulse Ox O2 Delivery O2 Flow Rate FiO2 06/02/19 13:09 106 06/02/19 12:00 98.8 102 27 108/56 (73) 94 06/02/19 12:00 Nasal Cannula 40.0 06/02/19 12:00 40.0 60 06/02/19 10:47 85 High Flow 40.0 60 06/02/19 10:47 110 20 94 High Flow 40.0 60 108 20 95 06/02/19 08:00 40.0 60 06/02/19 08:00 Nasal Cannula 40.0 06/02/19 08:00 99.9 120 28 95/50 (65) 94 06/02/19 07:48 92 06/02/19 07:47 111 22 93 High Flow 40.0 60 110 22 94 06/02/19 07:41 92 High Flow 40.0 60 06/02/19 04:00 40.0 60 06/02/19 04:00 Nasal Cannula 40.0 06/02/19 04:00 99.0 113 24 105/66 (79) 94 06/02/19 03:36 114 06/02/19 03:09 96 High Flow 40.0 60 06/02/19 00:00 Nasal Cannula 40.0 06/02/19 00:00 99.1 108 24 111/58 (75) 94 06/01/19 23:33 113 06/01/19 22:57 104 18 96 High Flow 40.0 50 101 18 94 06/01/19 22:56 94 High Flow 40.0 60 06/01/19 20:00 96 High Flow 40.0 60 06/01/19 20:00 40.0 60 06/01/19 20:00 Nasal Cannula 40.0 06/01/19 20:00 114 18 97 High Flow 40.0 50 111 18 92 06/01/19 20:00 99.6 104 24 118/60 (79) 91 06/01/19 19:04 108 06/01/19 16:00 121 06/01/19 16:00 Nasal Cannula 40.0 06/01/19 16:00 99.8 121 32 125/65 (85) 93 06/01/19 16:00 40.0 60 06/01/19 15:17 90 18 95 High Flow 40.0 40 89 18 94 06/01/19 15:17 95 High Flow 40.0 60 Intake and Output 06/01/19 06/02/19 19:00 07:00 Intake Total 587.416 ml 385.000 ml Output Total 400 ml 400 ml Balance 187.416 ml -15.000 ml Intake IV Total 587.416 ml 385.000 ml Output Urine Total 400 ml 400 ml # Voids 2 # Bowel Movements 1 1 Laboratory Tests 06/01/19 14:30: White Blood Count 15.2H, Red Blood Count 3.42L, Hemoglobin 11.4L, Hematocrit 33.5L, Mean Corpuscular Volume 98, Mean Corpuscular Hemoglobin 33.3H, Mean Corpuscular Hemoglobin Concent 33.9, Red Cell Distribution Width 11.9, Platelet Count 355, Mean Platelet Volume 5.6L, Neutrophils (%) (Auto) 83.6H, Lymphocytes (%) (Auto) 7.7L, Monocytes (%) (Auto) 7.8, Eosinophils (%) (Auto) 0.1, Basophils (%) (Auto) 0.8, Sodium Level 137, Potassium Level 3.8, Chloride Level 102, Carbon Dioxide Level 27, Anion Gap 8, Blood Urea Nitrogen 10, Creatinine 0.8, Estimat Glomerular Filtration Rate > 60, Glucose Level 102, Calcium Level 9.1, Total Bilirubin 0.6, Aspartate Amino Transf (AST/SGOT) 40H, Alanine Aminotransferase (ALT/SGPT) 68, Alkaline Phosphatase 62, Total Protein 7.4, Albumin 1.9L, Globulin 5.5, Albumin/Globulin Ratio 0.3L 06/02/19 03:45: Phosphorus Level 2.7, Magnesium Level 1.7L Chest x-ray 06/01/19: shows increase in right pleural effusion Height (Feet): 5 Height (Inches): 1.00 Weight (Pounds): 130 General Appearance: WD/WN, no apparent distress, alert EENT: PERRL/EOMI, normal ENT inspection Neck: non-tender, normal alignment, supple Cardiovascular: normal peripheral pulses, normal rate, other - Tachycardic Respiratory/Chest: chest wall non-tender, other - Decreased breath sounds at the right base diffuse coarse breath sounds, no wheezing. Tachypneic Abdomen: normal bowel sounds, non tender, soft Extremities: normal range of motion, non-tender, normal inspection Edema: other - No lower extremity edema bilaterally Neurologic: retail service specialist II-XII grossly normal, no motor/sensory deficits, alert, responsive Skin: normal pigmentation, warm/dry Joseph Durán D.O. Jun 02, 2019 13:48
--- NOTE | 2019-06-02 15:21 | Surgery Progress Note ---
Surgery Progress Note Subjective Additional Comments low grade fevers tachy leukocytosis labs noted exam stable Objective Last 24 Hour Vital Signs Date Time Temp Pulse Resp B/P (MAP) Pulse Ox O2 Delivery O2 Flow Rate FiO2 06/02/19 15:03 91 High Flow 40.0 60 06/02/19 13:09 106 06/02/19 12:00 98.8 102 27 108/56 (73) 94 06/02/19 12:00 Nasal Cannula 40.0 06/02/19 12:00 40.0 60 06/02/19 10:47 85 High Flow 40.0 60 06/02/19 10:47 110 20 94 High Flow 40.0 60 108 20 95 06/02/19 08:00 40.0 60 06/02/19 08:00 Nasal Cannula 40.0 06/02/19 08:00 99.9 120 28 95/50 (65) 94 06/02/19 07:48 92 06/02/19 07:47 111 22 93 High Flow 40.0 60 110 22 94 06/02/19 07:41 92 High Flow 40.0 60 06/02/19 04:00 40.0 60 06/02/19 04:00 Nasal Cannula 40.0 06/02/19 04:00 99.0 113 24 105/66 (79) 94 06/02/19 03:36 114 06/02/19 03:09 96 High Flow 40.0 60 06/02/19 00:00 Nasal Cannula 40.0 06/02/19 00:00 99.1 108 24 111/58 (75) 94 06/01/19 23:33 113 06/01/19 22:57 104 18 96 High Flow 40.0 50 101 18 94 06/01/19 22:56 94 High Flow 40.0 60 06/01/19 20:00 96 High Flow 40.0 60 06/01/19 20:00 40.0 60 06/01/19 20:00 Nasal Cannula 40.0 06/01/19 20:00 114 18 97 High Flow 40.0 50 111 18 92 06/01/19 20:00 99.6 104 24 118/60 (79) 91 06/01/19 19:04 108 06/01/19 16:00 121 06/01/19 16:00 Nasal Cannula 40.0 06/01/19 16:00 99.8 121 32 125/65 (85) 93 06/01/19 16:00 40.0 60 I&O Intake and Output 06/01/19 06/02/19 19:00 07:00 Intake Total 587.416 ml 412.500 ml Output Total 400 ml 400 ml Balance 187.416 ml 12.500 ml Intake IV Total 587.416 ml 412.500 ml Output Urine Total 400 ml 400 ml # Voids 2 # Bowel Movements 1 1 Wound: clean Cardiovascular: RSR Respiratory: decreased breath sounds Abdomen: soft, non-tender, present bowel sounds, non-distended Extremities: no tenderness, no cyanosis Laboratory Tests Test 06/02/19 03:45 Phosphorus Level 2.7 MG/DL (2.5-4.9) Magnesium Level 1.7 MG/DL (1.8-2.4) L Plan Problems: (1) Ulcer of right heel Assessment & Plan: This is a 54-year-old male with multiple medical comorbidities who is currently presented for fever and tachycardia. Patient identified to have abnormal decubitus pressure ulcer on right heel. On examination patient has a stage III full-thickness right heel decubitus ulcer periwound intact but mildly macerated. Surrounding erythema. No drainage. No underlying abscess. No bone palpable. No foul odor. Labs noted and identified. No signs of acute active inflammatory or infectious process from this. Patient does have a leukocytosis that significant. Will continue work-up for etiology Will recommend local wound care. Apply Thera honey followed by up to foam dressing daily. We will monitor. Thank you for this consultation we will follow with recommendations (2) Fever Assessment & Plan: Low-grade fevers, tachycardia, leukocytosis, abnormal labs Head to toe skin integrity and wound eval completed as above UA noted chest x-ray noted Possible aspiration pneumonia Continue antibiotics as per infectious disease IV fluids Patient not eating well and currently DNR/DNI and does not have feeding tube. Will get speech and swallow eval prior to diet (3) Tachycardia (4) Severe sepsis Assessment & Plan: DAILY ESTIMATED NEEDS: Needs based on wound, wasting, pulmonary/ 46kg 30-35 kcals/kg 3406-4058 total kcals 1.3-1.8 g protein/kg 60-83 g total protein 25-30 mL/kg 6685-9215 total fluid mLs NUTRITION DIAGNOSIS: * Swallowing difficulty R/T dysphagia, respiratory status as evidenced by h/o Down's syndrome, pt on pureed texture diet NON DESTRUCTIVE EVALUATION MANAGER, currently NPO, on BIPAP. * Increased kcal/prot needs R/T wound healing and wasting as evidenced by pt admitted w/ stage 3 rt heel wound, w/ mild-moderate generalized wasting. CURRENT DIET:NPO PO DIET RECOMMENDATIONS: IF SAFE FOR PO -> liberalized REGULAR/ texture per RADIUS CORNER MACHINE OPERATOR + Ensure Enlive TID ENTERAL NUTRITION RECOMMENDATIONS: CONSULT RD IF TF PART OF POC AND INDICATED: PER POLST, NO TF AT THIS TIME ADDITIONAL RECOMMENDATIONS: * Calibrated bedscale wt - bedscale wt per RD= 101lbs vs EMR rh=198cat * Monitor NPO status, ability to feed - RADIUS CORNER MACHINE OPERATOR eval pending, pt on BIPAP, altered. TF indicates no TF at this time * Monitor lytes, replete as needed * Wound healing: once able to feed-> add MVI w/ min x 1, Vit C 500mg QD -> add ZnSO4 220mg QD x 10 days -> Jeremy 1pkt BID as tolerated Alexis Ruffin Jun 02, 2019 15:21
[2019-06-02 16:00] VITALS: BP 95/46
--- NOTE | 2019-06-02 16:36 | Infectious Diseases Prog Note ---
Assessment/Plan Assessment/Plan Full consult dictated: A) 1) pna, sepsis, leukocytosis, fevers 2) pmh noted 3) allergies - nsaids and ketamine 4) mrsa/vre colonization P) 1) zosyn and vancomycin 2) check cultures, labs and chest x-ray 3) will f/u 4) continue treatment per primary care team Subjective Allergies: Coded Allergies: KETAMINE (Verified Allergy, Unknown, 05/29/19) NSAIDS (NON-STEROIDAL ANTI-INFLAMMA (Verified Allergy, Unknown, 05/29/19) Objective Vital Signs Last 24 Hour Vital Signs Date Time Temp Pulse Resp B/P (MAP) Pulse Ox O2 Delivery O2 Flow Rate FiO2 06/02/19 15:24 119 22 94 High Flow 40.0 60 111 22 94 06/02/19 15:03 91 High Flow 40.0 60 06/02/19 13:09 106 06/02/19 12:00 98.8 102 27 108/56 (73) 94 06/02/19 12:00 Nasal Cannula 40.0 06/02/19 12:00 40.0 60 06/02/19 10:47 85 High Flow 40.0 60 06/02/19 10:47 110 20 94 High Flow 40.0 60 108 20 95 06/02/19 08:00 40.0 60 06/02/19 08:00 Nasal Cannula 40.0 06/02/19 08:00 99.9 120 28 95/50 (65) 94 06/02/19 07:48 92 06/02/19 07:47 111 22 93 High Flow 40.0 60 110 22 94 06/02/19 07:41 92 High Flow 40.0 60 06/02/19 04:00 40.0 60 06/02/19 04:00 Nasal Cannula 40.0 06/02/19 04:00 99.0 113 24 105/66 (79) 94 06/02/19 03:36 114 06/02/19 03:09 96 High Flow 40.0 60 06/02/19 00:00 Nasal Cannula 40.0 06/02/19 00:00 99.1 108 24 111/58 (75) 94 06/01/19 23:33 113 06/01/19 22:57 104 18 96 High Flow 40.0 50 101 18 94 06/01/19 22:56 94 High Flow 40.0 60 06/01/19 20:00 96 High Flow 40.0 60 06/01/19 20:00 40.0 60 06/01/19 20:00 Nasal Cannula 40.0 06/01/19 20:00 114 18 97 High Flow 40.0 50 111 18 92 06/01/19 20:00 99.6 104 24 118/60 (79) 91 06/01/19 19:04 108 Height (Feet): 5 Height (Inches): 1.00 Weight (Pounds): 130 Laboratory Tests Test 06/02/19 03:45 Phosphorus Level 2.7 MG/DL (2.5-4.9) Magnesium Level 1.7 MG/DL (1.8-2.4) L Current Medications Medications (Trade) Dose Ordered Sig/Kendra Route PRN Reason Start Time Stop Time Status Last Admin Dose Admin Acetaminophen (Tylenol) 650 mg Q6H PRN RECTAL Mild Pain (Pain Scale 1-3) 05/31/19 01:15 06/30/19 01:14 05/31/19 21:17 Acetylcysteine (Mucomyst) 100 mg Q4HRT N 05/31/19 17:00 06/30/19 16:59 06/02/19 15:03 Albuterol/ Ipratropium (Albuterol/ Ipratropium) 3 ml Q4HRT N 05/31/19 17:00 06/05/19 16:59 06/02/19 15:03 Ascorbic Acid (Vitamin C) 500 mg DAILY ORAL 06/02/19 09:00 07/02/19 08:59 Bisacodyl (Dulcolax) 10 mg DAILYPRN PRN RECTAL constipation 05/31/19 10:45 06/29/19 10:44 Cyanocobalamin (Vitamin B-12 Tab) 100 mcg DAILY ORAL 05/31/19 09:00 06/30/19 08:59 Dextrose/ Electrolytes 1,000 ml @ 75 mls/hr [id number] IV 06/02/19 13:00 07/02/19 12:59 06/02/19 13:04 Docusate Sodium (Colace) 100 mg THREE TIMES A DAY ORAL 05/31/19 09:00 06/29/19 12:59 Famotidine (Pepcid I.v.) 20 mg Q12HR IVP 05/31/19 09:00 06/30/19 08:59 06/02/19 09:05 Ferrous Sulfate (Feosol) 325 mg DAILY ORAL 05/31/19 09:00 06/30/19 08:59 Heparin Sodium (Porcine) (Heparin 5000 units/ml) 5,000 units EVERY 12 HOURS SUBQ 05/31/19 09:00 06/29/19 08:59 06/02/19 09:20 Levothyroxine Sodium (Synthroid) 25 mcg TuThSa@0630 ORAL 06/02/19 06:30 07/02/19 06:29 Levothyroxine Sodium (Synthroid) 50 mcg SuMoWeFr@0630 ORAL 05/31/19 06:30 06/30/19 06:29 Lorazepam (Ativan 2mg/ml 1ml) 1 mg EVERY 6 HOURS PRN IV For Anxiety 05/31/19 06:00 06/05/19 23:14 Megestrol Acetate (Megace) 400 mg DAILY ORAL 05/31/19 09:00 06/30/19 08:59 Midodrine (Pro-Amatine) 5 mg TIDPRN PRN ORAL SBP<90 05/31/19 13:00 06/29/19 12:59 Multivitamins (Multivitamins) 1 tab DAILY ORAL 06/02/19 09:00 07/02/19 08:59 Piperacillin Sod/ Tazobactam Sod 3.375 gm/Dextrose 110 ml @ 27.5 mls/hr Q8HR IVPB 05/31/19 06:00 06/06/19 13:59 06/02/19 14:07 Vancomycin HCl (Vanco rx to dose) 1 ea DAILY PRN MISC Per rx protocol 05/31/19 09:00 06/28/19 23:14 Vancomycin HCl 1 gm/Sodium Chloride 275 ml @ 183.708 mls/hr Q12H IVPB 05/31/19 08:00 06/04/19 19:59 06/02/19 08:21 Zinc Sulfate (Zinc Sulfate) 220 mg DAILY ORAL 06/02/19 09:00 06/12/19 08:59 Rafia Rand MD Jun 02, 2019 16:36
[2019-06-02 20:00] VITALS: BP 97/57
[2019-06-03] VITALS: BP 98/58
--- NOTE | 2019-06-03 00:02 | Consultation ---
DATE OF CONSULTATION: 06/02/2019 INFECTIOUS DISEASE CONSULTATION CONSULTING PHYSICIAN: Rafia Rand M.D. ATTENDING PHYSICIAN: Prashant Gallagher M.D. REFERRING PHYSICIAN: Joseph Durán D.O. REASON FOR CONSULTATION: Sepsis, pneumonia, leukocytosis, and fevers. CHIEF COMPLAINT: The patient's chief complaint coming in to the hospital is sepsis, pneumonia, leukocytosis, and fevers. HISTORY OF PRESENT ILLNESS: This is a 54-year-old male, who is in the [facility] at [facility] with shortness of breath and pneumonia. The patient is septic with elevated white count and fevers. Infectious Disease consultation was requested. The patient is essentially nonverbal and cannot give any history. He has a Lal. The patient is on vancomycin and Zosyn empirically. 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 Infectious Disease consultation is requested for antibiotic management. The patient will continue on vancomycin and Zosyn for sepsis and pneumonia for now. MAR was noted. Orders were noted. Notes and records were reviewed. Case was discussed with the RN. Also case discussed with Dr. Durán. The patient will continue on vancomycin and Zosyn for now. REVIEW OF SYSTEMS: CONSTITUTIONAL: The patient has a Lal. I do not believe he has a central line coming in. The patient has generalized fatigue, weakness, poorly responsive, and not a very good historian. HEAD AND NECK: No obvious head pain or neck pain. CARDIAC: No chest pain or pressors. GASTROINTESTINAL: No nausea, vomiting, or diarrhea. GENITOURINARY: He has a Lal. PULMONARY: Shortness of breath and congestion noted. No hemoptysis. SKIN: Wounds were noted. No new rash. EXTREMITY: Could not assess. NEUROLOGIC: No seizures. Essentially nonverbal. Generalized weakness, fatigue, and came in with fevers. He also came in with tachycardia. Review of systems is otherwise limited. PAST MEDICAL HISTORY: The patient has a past medical history of the following. The patient has a past medical history of Down syndrome. He is nonverbal. Other past medical history includes congestive heart failure, hypertension, hyperlipidemia, Down syndrome, and nonverbal. He also has history of anemia, iron deficiency anemia, history of hypothyroidism, gastroesophageal reflux disease, history of , history of ulcers, history of wounds, and history of hypoxia. ALLERGIES: Nonsteroidals and ketamine. SOCIAL HISTORY: Negative for smoking, alcohol, and drug abuse. FAMILY HISTORY: Noncontributory. Negative for exposure to tuberculosis or cancer. MEDICATIONS: Upon reviewing the MAR, the patient is on the following medications. He is on multivitamin, ascorbic acid, zinc sulfate, and levothyroxine. The patient is on Mucomyst, albuterol, midodrine, vancomycin, Zosyn, and bisacodyl. The patient is on vitamin B, docusate, ferrous sulfate, heparin, megestrol, vancomycin, Zosyn, famotidine, levothyroxine, acetaminophen, and lorazepam. Outside medications were noted and reconciliated. PHYSICAL EXAMINATION: VITAL SIGNS: Temperature has been as high as 101.4, currently temperature is 98.8, pulse rate is 119, respiratory rate 22, and saturation 94%. He is on a breathing mask at 60% FiO2. Pulse rate 94, respiratory rate 22, blood pressure 108/56, and saturation 94%. Heart rate has been as high as 119. Respiratory rate has been as high as 28. GENERAL: Lethargic and weak. Opens eyes. HEAD AND NECK: He has a breathing mask. Otherwise, oral exam, no thrush. Eye exam, no icterus. Normocephalic. Neck is supple. No jugular venous distention. HEART: Regular. No obvious gallop or murmur. Tachycardic. No friction rub. ABDOMEN: Soft. Positive bowel sounds and nontender. LUNGS: Bilateral rhonchi, rales, and crackles. SKIN: No rash. MUSCULOSKELETAL: No effusion. Legs are without cellulitis. PERIPHERAL VASCULAR: No gangrene or cyanosis. GENITOURINARY: He has a Lal. Urine is slightly cloudy. LINE SITES: Without phlebitis. NEUROLOGIC: Generalized weakness and responsive. Nonverbal. Wounds were reviewed and noted. LABORATORY DATA: Laboratory data is as follows. White count 15.2 and hemoglobin 11.4. White count has been as high as 17.9. Sedimentation rate 119. Creatinine is 0.8. LFTs noted. Urinalysis had only 0 to 2 white cells. CULTURES: VRE and MRSA screens are positive. Blood cultures are negative to date. IMAGING STUDIES: Chest x-ray showed consolidation in the right lower lobe concerning for pneumonia. Reports were noted and reviewed. ASSESSMENT AND PLAN: 1. The patient has sepsis, fevers, leukocytosis, SIRS criteria, elevated heart rate, respiratory rate, shortness of breath, tachycardia, fevers as high as 101.4 and white count over 17,000 with altered mental status. The patient has likely sepsis, source is pneumonia. The patient is at high risk for aspiration and healthcare-acquired pneumonia versus developing community-acquired pneumonia. At this time, I agree with empiric vancomycin and Zosyn for MRSA gram-negative anaerobic coverage. Continue vancomycin and Zosyn for sepsis, pneumonia, fevers, and leukocytosis. Check followup laboratories, cultures, and chest x-ray. Continue vancomycin and Zosyn for now. 2. Hypoxic. Continue treatment per Pulmonary Medicine. The patient is on a breathing mask. 3. Right heel wound was noted. He has been seen by Surgery. Upon reviewing the Surgery note, it does not seem to be acutely infected. Continue wound care per Surgery. 4. The patient has history of Down syndrome. 5. Nonverbal. 6. Hypothyroidism. Continue thyroid supplementation. 7. Hypertension. Continue blood pressure treatment per primary care team. 8. Congestive heart failure. 9. Hyperlipidemia. 10. Anemia. 11. Gastroesophageal reflux disease. 12. . 13. Hypoxia. 14. Breathing mask. 15. Wound care protocol. Continue wound treatment per protocol 16. Allergies to ketamine and NSAIDs. 17. Social history is negative. 18. Family history is noncontributory. 19. MAR is noted. 20. Case was discussed with RN. 21. Case was discussed with Dr. Durán. Rafia Rand M.D. DR: JOYCE JOB#: [id number] CC: ESPERANZA
[2019-06-03] MEDS: D5 1/2NS w/KCl 20mEq 1,000 ML IV SCH ×3 (02:09→18:08)
[2019-06-03] MEDS: Albuterol/Ipratropium 3ml neb HHN SCH ×6 (03:05→22:54)
[2019-06-03 04:00] VITALS: BP 94/61
[2019-06-03 05:34] LABS: ANION GAP 10 mmol/L (5-15); BLOOD UREA NITROGEN 12 mg/dL (7-18); CALCIUM 8.5 MG/DL (8.5-10.1); CARBON DIOXIDE 25 MMOL/L (21-32); CHLORIDE 103 MMOL/L (98-107); CREATININE 0.7 MG/DL (0.55-1.30); PHOSPHORUS 2.9 MG/DL (2.5-4.9); POTASSIUM 3.3 MMOL/L (3.5-5.1); SODIUM 138 MMOL/L (136-145)
[2019-06-03] MEDS: Piperacillin/Tazobactam 3.375 GM in D5W 110 ML IVPB SCH ×3 (06:14→22:22)
[2019-06-03 08:00] VITALS: BP 94/56
[2019-06-03] MEDS: Docusate 100mg cap ORAL SCH ×3 (08:38→18:00)
[2019-06-03] MEDS: Megace 400mg/10ml Susp ORAL SCH (08:38)
[2019-06-03] MEDS: Vancomycin 1 GM in NS 275 ML IVPB SCH ×2 (08:38→20:35)
[2019-06-03] MEDS: Zinc Sulfate 220mg cap ORAL SCH (08:38)
[2019-06-03] MEDS: Ascorbic Acid 500mg tab ORAL SCH (08:38)
[2019-06-03] MEDS: Vitamin B-12 100mcg tab ORAL SCH (08:38)
[2019-06-03] MEDS: Heparin 5000 units/ml inj SUBQ SCH ×2 (08:40→20:36)
[2019-06-03 08:51] LABS: BASOPHILS % (AUTO) 1.3 % (0.0-2.0); EOSINOPHILS % (AUTO) 1.4 % (0.0-3.0); HEMOGLOBIN 10.1 G/DL (14.2-18.0); LYMPHOCYTES % (AUTO) 15.9 % (20.0-45.0); MEAN CORPUSCULAR VOLUME 96 FL (80-99); MONOCYTES % (AUTO) 6.2 % (1.0-10.0); NEUTROPHILS % (AUTO) 75.2 % (45.0-75.0); PLATELET COUNT 392 K/UL (150-450); RED BLOOD COUNT 3.01 M/UL (4.70-6.10); RED CELL DISTRIBUTION WIDTH 11.9 % (11.6-14.8); WHITE BLOOD COUNT 11.4 K/UL (4.8-10.8)
[2019-06-03 12:00] VITALS: BP 100/61
--- NOTE | 2019-06-03 12:20 | Pulmonology Progress Note ---
Assessment/Plan Problems: (1) Pneumonia (2) Acute and chronic respiratory failure with hypoxia (3) Severe sepsis (4) Fever (5) Down's syndrome (6) Tachycardia (7) Hypothyroid (8) HLD (hyperlipidemia) (9) HTN (hypertension) (10) GERD (gastroesophageal reflux disease) (11) Iron deficiency anemia (12) CHF (congestive heart failure) Assessment/Plan Problem List: 1. Suspected aspiration with dense right lower lobe pneumonia. 2. Hypercapnic hypoxemic respiratory failure. 3. Down syndrome. 4. Hypertension. 5. Hyperlipidemia. 6. Gastroesophageal reflux disease. 7. Decubitus ulcers. Plan: -BiPAP 12/5 qhs and prn - ENCOURAGE NOCTURNAL USAGE -Titrate high flow nasal cannula -cont abx per ID -monitor labs -CT CHEST ORDERED to further evaluate R pleural effusion -[employer] recs, VSS, GT not within GOC -DNAR/DNI Case d/w RN Subjective Allergies: Coded Allergies: KETAMINE (Verified Allergy, Unknown, 05/29/19) NSAIDS (NON-STEROIDAL ANTI-INFLAMMA (Verified Allergy, Unknown, 05/29/19) Subjective Tm 99 on HFO2 40% VSS Doing [employer] eval, todd some PO, VSS pending + cough + SOB no FC More alert Objective Last 24 Hour Vital Signs Date Time Temp Pulse Resp B/P (MAP) Pulse Ox O2 Delivery O2 Flow Rate FiO2 06/03/19 08:00 Nasal Cannula 40.0 06/03/19 08:00 98.0 96 25 94/56 (69) 96 06/03/19 08:00 40.0 60 06/03/19 07:53 97 06/03/19 07:42 102 22 96 High Flow 40.0 60 98 22 95 06/03/19 07:39 95 High Flow 40.0 60 06/03/19 04:00 95 06/03/19 04:00 40.0 60 06/03/19 04:00 Nasal Cannula 40.0 06/03/19 04:00 99.5 97 27 94/61 (72) 94 06/03/19 03:20 107 20 96 High Flow 40.0 60 06/03/19 03:05 102 20 93 High Flow 40.0 60 06/03/19 03:04 93 High Flow 40.0 60 06/03/19 00:00 97 06/03/19 00:00 Nasal Cannula 40.0 06/03/19 00:00 99.7 97 28 98/58 (71) 93 06/02/19 23:39 118 22 96 High Flow 40.0 60 06/02/19 23:23 98 20 92 High Flow 40.0 60 06/02/19 23:22 92 High Flow 40.0 60 06/02/19 20:00 98.6 95 24 97/57 (70) 93 06/02/19 20:00 Nasal Cannula 40.0 06/02/19 20:00 81 06/02/19 20:00 40.0 60 06/02/19 19:52 110 20 95 High Flow 40.0 60 06/02/19 19:37 87 20 93 High Flow 40.0 60 06/02/19 19:36 93 High Flow 40.0 60 06/02/19 16:00 40.0 60 06/02/19 16:00 99.9 104 25 95/46 (62) 93 06/02/19 16:00 Nasal Cannula 40.0 06/02/19 15:38 90 06/02/19 15:24 119 22 94 High Flow 40.0 60 111 22 94 06/02/19 15:03 91 High Flow 40.0 60 06/02/19 13:09 106 Intake and Output 06/02/19 06/03/19 19:00 07:00 Intake Total 1112.500 ml 1276.8108 ml Output Total 100 ml 50 ml Balance 1012.500 ml 1226.8108 ml Intake IV Total 1112.500 ml 1276.8108 ml Output Urine Total 100 ml 50 ml # Voids 2 1 # Bowel Movements 2 General Appearance: no acute distress, cachetic HEENT: normocephalic, atraumatic, anicteric, mucous membranes moist Respiratory/Chest: rhonchi Cardiovascular: normal peripheral pulses, normal rate, regular rhythm Abdomen: normal bowel sounds, soft, non tender, no organomegaly, non distended , no mass Extremities: no cyanosis, no clubbing, no edema Microbiology Date/Time Source Procedure Growth Status 06/01/19 14:00 Sputum Gram Stain - Final Resulted 06/01/19 14:00 Sputum Sputum Culture - Preliminary NORMAL UPPER RESPIRATORY ANAMARIA AT 24 ... Resulted Laboratory Tests 06/03/19 03:55: Sodium Level 138, Potassium Level 3.3L, Chloride Level 103, Carbon Dioxide Level 25, Anion Gap 10, Blood Urea Nitrogen 12, Creatinine 0.7, Estimat Glomerular Filtration Rate > 60, Glucose Level 58L, Calcium Level 8.5, Phosphorus Level 2.9, Magnesium Level 1.9 06/03/19 07:55: White Blood Count 11.4H, Red Blood Count 3.01L, Hemoglobin 10.1L, Hematocrit 29.0L, Mean Corpuscular Volume 96, Mean Corpuscular Hemoglobin 33.5H, Mean Corpuscular Hemoglobin Concent 34.8, Red Cell Distribution Width 11.9, Platelet Count 392, Mean Platelet Volume 5.8L, Neutrophils (%) (Auto) 75.2H, Lymphocytes (%) (Auto) 15.9L, Monocytes (%) (Auto) 6.2, Eosinophils (%) (Auto) 1.4, Basophils (%) (Auto) 1.3 06/03/19 10:55: Hepatitis B Surface Antibody, Quant [Pending], Hepatitis B Core Total Antibody [ Pending], Hepatitis B DNA (IU/mL) [Pending], Hepatitis Be Antibody [Pending], Hepatitis Be Antigen [Pending] Current Medications Medications (Trade) Dose Ordered Sig/Kendra Route PRN Reason Start Time Stop Time Status Last Admin Dose Admin Acetaminophen (Tylenol) 650 mg Q6H PRN RECTAL Mild Pain (Pain Scale 1-3) 05/31/19 01:15 06/30/19 01:14 05/31/19 21:17 Acetylcysteine (Mucomyst) 100 mg Q4HRT N 05/31/19 17:00 06/30/19 16:59 06/03/19 11:22 Albuterol/ Ipratropium (Albuterol/ Ipratropium) 3 ml Q4HRT N 05/31/19 17:00 06/05/19 16:59 06/03/19 11:22 Ascorbic Acid (Vitamin C) 500 mg DAILY ORAL 06/02/19 09:00 07/02/19 08:59 06/03/19 08:38 Bisacodyl (Dulcolax) 10 mg DAILYPRN PRN RECTAL constipation 05/31/19 10:45 06/29/19 10:44 Cyanocobalamin (Vitamin B-12 Tab) 100 mcg DAILY ORAL 05/31/19 09:00 06/30/19 08:59 06/03/19 08:38 Dextrose/ Electrolytes 1,000 ml @ 75 mls/hr [id number] IV 06/02/19 13:00 07/02/19 12:59 06/03/19 02:09 Docusate Sodium (Colace) 100 mg THREE TIMES A DAY ORAL 05/31/19 09:00 06/29/19 12:59 06/03/19 08:38 Famotidine (Pepcid I.v.) 20 mg Q12HR IVP 05/31/19 09:00 06/30/19 08:59 06/03/19 08:38 Ferrous Sulfate (Feosol) 325 mg DAILY ORAL 05/31/19 09:00 06/30/19 08:59 06/03/19 08:38 Heparin Sodium (Porcine) (Heparin 5000 units/ml) 5,000 units EVERY 12 HOURS SUBQ 05/31/19 09:00 06/29/19 08:59 06/03/19 08:40 Levothyroxine Sodium (Synthroid) 25 mcg TuThSa@0630 ORAL 06/02/19 06:30 07/02/19 06:29 Levothyroxine Sodium (Synthroid) 50 mcg SuMoWeFr@0630 ORAL 05/31/19 06:30 06/30/19 06:29 Lorazepam (Ativan 2mg/ml 1ml) 1 mg EVERY 6 HOURS PRN IV For Anxiety 05/31/19 06:00 06/05/19 23:14 Midodrine (Pro-Amatine) 5 mg TIDPRN PRN ORAL SBP<90 05/31/19 13:00 06/29/19 12:59 Multivitamins (Multivitamins) 1 tab DAILY ORAL 06/02/19 09:00 07/02/19 08:59 06/03/19 08:38 Piperacillin Sod/ Tazobactam Sod 3.375 gm/Dextrose 110 ml @ 27.5 mls/hr Q8HR IVPB 05/31/19 06:00 06/06/19 13:59 06/03/19 06:14 Potassium Chloride 100 ml @ 50 mls/hr ONCE ONCE IVPB 06/03/19 10:15 06/03/19 12:14 UNV Potassium Chloride 100 ml @ 100 mls/hr NOW ONCE IVPB 06/03/19 10:15 06/03/19 11:14 UNV Vancomycin HCl (Vanco rx to dose) 1 ea DAILY PRN MISC Per rx protocol 05/31/19 09:00 06/28/19 23:14 Vancomycin HCl 1 gm/Sodium Chloride 275 ml @ 183.708 mls/hr Q12H IVPB 06/02/19 20:00 06/07/19 07:59 06/03/19 08:38 Zinc Sulfate (Zinc Sulfate) 220 mg DAILY ORAL 06/02/19 09:00 06/12/19 08:59 06/03/19 08:38 Yovani Luevano MD Jun 03, 2019 12:20
--- NOTE | 2019-06-03 12:20 | Infectious Diseases Prog Note ---
Assessment/Plan Assessment/Plan A) 1) pna, sepsis, leukocytosis, fevers 2) pmh noted 3) allergies - nsaids and ketamine 4) mrsa/vre colonization P) 1) zosyn and vancomycin 2) check cultures, labs and chest x-ray 3) will f/u on sputum culture 4) continue treatment per primary care team Subjective HEENT: Reports: congestion - less Respiratory: Reports: shortness of breath - less Cardiovascular: Denies: chest pain Gastrointestinal/Abdominal: Denies: nausea, vomiting, diarrhea Genitourinary: Reports: other - + jones Allergies: Coded Allergies: KETAMINE (Verified Allergy, Unknown, 05/29/19) NSAIDS (NON-STEROIDAL ANTI-INFLAMMA (Verified Allergy, Unknown, 05/29/19) Objective Vital Signs Last 24 Hour Vital Signs Date Time Temp Pulse Resp B/P (MAP) Pulse Ox O2 Delivery O2 Flow Rate FiO2 06/03/19 08:00 Nasal Cannula 40.0 06/03/19 08:00 98.0 96 25 94/56 (69) 96 06/03/19 08:00 40.0 60 06/03/19 07:53 97 06/03/19 07:42 102 22 96 High Flow 40.0 60 98 22 95 06/03/19 07:39 95 High Flow 40.0 60 06/03/19 04:00 95 06/03/19 04:00 40.0 60 06/03/19 04:00 Nasal Cannula 40.0 06/03/19 04:00 99.5 97 27 94/61 (72) 94 06/03/19 03:20 107 20 96 High Flow 40.0 60 06/03/19 03:05 102 20 93 High Flow 40.0 60 06/03/19 03:04 93 High Flow 40.0 60 06/03/19 00:00 97 06/03/19 00:00 Nasal Cannula 40.0 06/03/19 00:00 99.7 97 28 98/58 (71) 93 06/02/19 23:39 118 22 96 High Flow 40.0 60 06/02/19 23:23 98 20 92 High Flow 40.0 60 06/02/19 23:22 92 High Flow 40.0 60 06/02/19 20:00 98.6 95 24 97/57 (70) 93 06/02/19 20:00 Nasal Cannula 40.0 06/02/19 20:00 81 06/02/19 20:00 40.0 60 06/02/19 19:52 110 20 95 High Flow 40.0 60 06/02/19 19:37 87 20 93 High Flow 40.0 60 06/02/19 19:36 93 High Flow 40.0 60 06/02/19 16:00 40.0 60 06/02/19 16:00 99.9 104 25 95/46 (62) 93 06/02/19 16:00 Nasal Cannula 40.0 06/02/19 15:38 90 06/02/19 15:24 119 22 94 High Flow 40.0 60 111 22 94 06/02/19 15:03 91 High Flow 40.0 60 06/02/19 13:09 106 Height (Feet): 5 Height (Inches): 1.00 Weight (Pounds): 104 General Appearance: no acute distress HEENT: normocephalic, atraumatic, anicteric Respiratory/Chest: crackles/rales, rhonchi - bilaterally Cardiovascular: normal rate, regular rhythm, no gallop/murmur Abdomen: normal bowel sounds, soft, non tender, no organomegaly, non distended Microbiology Date/Time Source Procedure Growth Status 06/01/19 14:00 Sputum Gram Stain - Final Resulted 06/01/19 14:00 Sputum Sputum Culture - Preliminary NORMAL UPPER RESPIRATORY ANAMARIA AT 24 ... Resulted Laboratory Tests Test 06/03/19 03:55 06/03/19 07:55 06/03/19 10:55 Sodium Level 138 MMOL/L (136-145) Potassium Level 3.3 MMOL/L (3.5-5.1) L Chloride Level 103 MMOL/L (98-107) Carbon Dioxide Level 25 MMOL/L (21-32) Anion Gap 10 mmol/L (5-15) Blood Urea Nitrogen 12 mg/dL (7-18) Creatinine 0.7 MG/DL (0.55-1.30) Estimat Glomerular Filtration Rate > 60 mL/min (>60) Glucose Level 58 MG/DL (74-106) L Calcium Level 8.5 MG/DL (8.5-10.1) Phosphorus Level 2.9 MG/DL (2.5-4.9) Magnesium Level 1.9 MG/DL (1.8-2.4) White Blood Count 11.4 K/UL (4.8-10.8) H Red Blood Count 3.01 M/UL (4.70-6.10) L Hemoglobin 10.1 G/DL (14.2-18.0) L Hematocrit 29.0 % (42.0-52.0) L Mean Corpuscular Volume 96 FL (80-99) Mean Corpuscular Hemoglobin 33.5 PG (27.0-31.0) H Mean Corpuscular Hemoglobin Concent 34.8 G/DL (32.0-36.0) Red Cell Distribution Width 11.9 % (11.6-14.8) Platelet Count 392 K/UL (150-450) Mean Platelet Volume 5.8 FL (6.5-10.1) L Neutrophils (%) (Auto) 75.2 % (45.0-75.0) H Lymphocytes (%) (Auto) 15.9 % (20.0-45.0) L Monocytes (%) (Auto) 6.2 % (1.0-10.0) Eosinophils (%) (Auto) 1.4 % (0.0-3.0) Basophils (%) (Auto) 1.3 % (0.0-2.0) Hepatitis B Surface Antibody, Quant Pending Hepatitis B Core Total Antibody Pending Hepatitis B DNA (IU/mL) Pending Hepatitis Be Antibody Pending Hepatitis Be Antigen Pending Current Medications Medications (Trade) Dose Ordered Sig/Kendra Route PRN Reason Start Time Stop Time Status Last Admin Dose Admin Acetaminophen (Tylenol) 650 mg Q6H PRN RECTAL Mild Pain (Pain Scale 1-3) 05/31/19 01:15 06/30/19 01:14 05/31/19 21:17 Acetylcysteine (Mucomyst) 100 mg Q4HRT [facility] 05/31/19 17:00 06/30/19 16:59 06/03/19 11:22 Albuterol/ Ipratropium (Albuterol/ Ipratropium) 3 ml Q4HRT [facility] 05/31/19 17:00 06/05/19 16:59 06/03/19 11:22 Ascorbic Acid (Vitamin C) 500 mg DAILY ORAL 06/02/19 09:00 07/02/19 08:59 06/03/19 08:38 Bisacodyl (Dulcolax) 10 mg DAILYPRN PRN RECTAL constipation 05/31/19 10:45 06/29/19 10:44 Cyanocobalamin (Vitamin B-12 Tab) 100 mcg DAILY ORAL 05/31/19 09:00 06/30/19 08:59 06/03/19 08:38 Dextrose/ Electrolytes 1,000 ml @ 75 mls/hr [id number] IV 06/02/19 13:00 07/02/19 12:59 06/03/19 02:09 Docusate Sodium (Colace) 100 mg THREE TIMES A DAY ORAL 05/31/19 09:00 06/29/19 12:59 06/03/19 08:38 Famotidine (Pepcid I.v.) 20 mg Q12HR IVP 05/31/19 09:00 06/30/19 08:59 06/03/19 08:38 Ferrous Sulfate (Feosol) 325 mg DAILY ORAL 05/31/19 09:00 06/30/19 08:59 06/03/19 08:38 Heparin Sodium (Porcine) (Heparin 5000 units/ml) 5,000 units EVERY 12 HOURS SUBQ 05/31/19 09:00 06/29/19 08:59 06/03/19 08:40 Levothyroxine Sodium (Synthroid) 25 mcg TuThSa@0630 ORAL 06/02/19 06:30 07/02/19 06:29 Levothyroxine Sodium (Synthroid) 50 mcg SuMoWeFr@0630 ORAL 05/31/19 06:30 06/30/19 06:29 Lorazepam (Ativan 2mg/ml 1ml) 1 mg EVERY 6 HOURS PRN IV For Anxiety 05/31/19 06:00 06/05/19 23:14 Midodrine (Pro-Amatine) 5 mg TIDPRN PRN ORAL SBP<90 05/31/19 13:00 06/29/19 12:59 Multivitamins (Multivitamins) 1 tab DAILY ORAL 06/02/19 09:00 07/02/19 08:59 06/03/19 08:38 Piperacillin Sod/ Tazobactam Sod 3.375 gm/Dextrose 110 ml @ 27.5 mls/hr Q8HR IVPB 05/31/19 06:00 06/06/19 13:59 06/03/19 06:14 Potassium Chloride 100 ml @ 50 mls/hr ONCE ONCE IVPB 06/03/19 10:15 06/03/19 12:14 UNV Potassium Chloride 100 ml @ 100 mls/hr NOW ONCE IVPB 06/03/19 10:15 06/03/19 11:14 UNV Vancomycin HCl (Vanco rx to dose) 1 ea DAILY PRN MISC Per rx protocol 05/31/19 09:00 06/28/19 23:14 Vancomycin HCl 1 gm/Sodium Chloride 275 ml @ 183.708 mls/hr Q12H IVPB 06/02/19 20:00 06/07/19 07:59 06/03/19 08:38 Zinc Sulfate (Zinc Sulfate) 220 mg DAILY ORAL 06/02/19 09:00 06/12/19 08:59 06/03/19 08:38 Rafia Rand MD Jun 03, 2019 12:20
--- NOTE | 2019-06-03 12:50 | Diagnostic Imaging Report ---
Indication: Shortness of breath Technique: One view of the chest Comparison: And 2018 Findings: Body habitus limits evaluation. There is diffuse bilateral interstitial and airspace disease, increased from the previous exam. There is persistent right greater than left pleural fluid Impression: Worsening of bilateral interstitial and airspace edema, since prior study of 2 days earlier
--- NOTE | 2019-06-03 14:42 | Surgery Progress Note ---
Surgery Progress Note Subjective Additional Comments leukocytosis trending down exam stable had CT today and requiring more O2 support since. will wean on Abx as per ID Objective Last 24 Hour Vital Signs Date Time Temp Pulse Resp B/P (MAP) Pulse Ox O2 Delivery O2 Flow Rate FiO2 06/03/19 12:00 99.0 89 22 100/61 (74) 93 06/03/19 12:00 Nasal Cannula 40.0 06/03/19 12:00 40.0 60 06/03/19 11:37 88 20 97 High Flow 40.0 60 84 20 97 06/03/19 11:36 97 High Flow 40.0 60 06/03/19 11:33 78 06/03/19 08:00 Nasal Cannula 40.0 06/03/19 08:00 98.0 96 25 94/56 (69) 96 06/03/19 08:00 40.0 60 06/03/19 07:53 97 06/03/19 07:42 102 22 96 High Flow 40.0 60 98 22 95 06/03/19 07:39 95 High Flow 40.0 60 06/03/19 04:00 95 06/03/19 04:00 40.0 60 06/03/19 04:00 Nasal Cannula 40.0 06/03/19 04:00 99.5 97 27 94/61 (72) 94 06/03/19 03:20 107 20 96 High Flow 40.0 60 06/03/19 03:05 102 20 93 High Flow 40.0 60 06/03/19 03:04 93 High Flow 40.0 60 06/03/19 00:00 97 06/03/19 00:00 Nasal Cannula 40.0 06/03/19 00:00 99.7 97 28 98/58 (71) 93 06/02/19 23:39 118 22 96 High Flow 40.0 60 06/02/19 23:23 98 20 92 High Flow 40.0 60 06/02/19 23:22 92 High Flow 40.0 60 06/02/19 20:00 98.6 95 24 97/57 (70) 93 06/02/19 20:00 Nasal Cannula 40.0 06/02/19 20:00 81 06/02/19 20:00 40.0 60 06/02/19 19:52 110 20 95 High Flow 40.0 60 06/02/19 19:37 87 20 93 High Flow 40.0 60 06/02/19 19:36 93 High Flow 40.0 60 06/02/19 16:00 40.0 60 06/02/19 16:00 99.9 104 25 95/46 (62) 93 06/02/19 16:00 Nasal Cannula 40.0 06/02/19 15:38 90 06/02/19 15:24 119 22 94 High Flow 40.0 60 111 22 94 06/02/19 15:03 91 High Flow 40.0 60 I&O Intake and Output 06/02/19 06/03/19 19:00 07:00 Intake Total 1112.500 ml 1276.8108 ml Output Total 100 ml 50 ml Balance 1012.500 ml 1226.8108 ml Intake IV Total 1112.500 ml 1276.8108 ml Output Urine Total 100 ml 50 ml # Voids 2 1 # Bowel Movements 2 Cardiovascular: RSR Respiratory: decreased breath sounds Abdomen: soft, present bowel sounds, non-distended Extremities: no cyanosis Laboratory Tests Test 06/03/19 03:55 06/03/19 07:55 06/03/19 10:55 Sodium Level 138 MMOL/L (136-145) Potassium Level 3.3 MMOL/L (3.5-5.1) L Chloride Level 103 MMOL/L (98-107) Carbon Dioxide Level 25 MMOL/L (21-32) Anion Gap 10 mmol/L (5-15) Blood Urea Nitrogen 12 mg/dL (7-18) Creatinine 0.7 MG/DL (0.55-1.30) Estimat Glomerular Filtration Rate > 60 mL/min (>60) Glucose Level 58 MG/DL (74-106) L Calcium Level 8.5 MG/DL (8.5-10.1) Phosphorus Level 2.9 MG/DL (2.5-4.9) Magnesium Level 1.9 MG/DL (1.8-2.4) White Blood Count 11.4 K/UL (4.8-10.8) H Red Blood Count 3.01 M/UL (4.70-6.10) L Hemoglobin 10.1 G/DL (14.2-18.0) L Hematocrit 29.0 % (42.0-52.0) L Mean Corpuscular Volume 96 FL (80-99) Mean Corpuscular Hemoglobin 33.5 PG (27.0-31.0) H Mean Corpuscular Hemoglobin Concent 34.8 G/DL (32.0-36.0) Red Cell Distribution Width 11.9 % (11.6-14.8) Platelet Count 392 K/UL (150-450) Mean Platelet Volume 5.8 FL (6.5-10.1) L Neutrophils (%) (Auto) 75.2 % (45.0-75.0) H Lymphocytes (%) (Auto) 15.9 % (20.0-45.0) L Monocytes (%) (Auto) 6.2 % (1.0-10.0) Eosinophils (%) (Auto) 1.4 % (0.0-3.0) Basophils (%) (Auto) 1.3 % (0.0-2.0) Hepatitis B Surface Antibody, Quant Pending Hepatitis B Core Total Antibody Pending Hepatitis B DNA (IU/mL) Pending Hepatitis Be Antibody Pending Hepatitis Be Antigen Pending Plan Problems: (1) Ulcer of right heel Assessment & Plan: This is a 54-year-old male with multiple medical comorbidities who is currently presented for fever and tachycardia. Patient identified to have abnormal decubitus pressure ulcer on right heel. On examination patient has a stage III full-thickness right heel decubitus ulcer periwound intact but mildly macerated. Surrounding erythema. No drainage. No underlying abscess. No bone palpable. No foul odor. Labs noted and identified. No signs of acute active inflammatory or infectious process from this. Patient does have a leukocytosis that significant. Will continue work-up for etiology Will recommend local wound care. Apply Thera honey followed by up to foam dressing daily. We will monitor. Thank you for this consultation we will follow with recommendations (2) Fever Assessment & Plan: Low-grade fevers, tachycardia, leukocytosis, abnormal labs Head to toe skin integrity and wound eval completed as above UA noted chest x-ray noted Possible aspiration pneumonia Continue antibiotics as per infectious disease IV fluids Patient not eating well and currently DNR/DNI and does not have feeding tube. Will get speech and swallow eval prior to diet (3) Tachycardia (4) Severe sepsis Assessment & Plan: DAILY ESTIMATED NEEDS: Needs based on wound, wasting, pulmonary/ 46kg 30-35 kcals/kg 1455-8239 total kcals 1.3-1.8 g protein/kg 60-83 g total protein 25-30 mL/kg 0429-6183 total fluid mLs NUTRITION DIAGNOSIS: * Swallowing difficulty R/T dysphagia, respiratory status as evidenced by h/o Down's syndrome, pt on pureed texture diet [employer], currently NPO, on BIPAP. * Increased kcal/prot needs R/T wound healing and wasting as evidenced by pt admitted w/ stage 3 rt heel wound, w/ mild-moderate generalized wasting. CURRENT DIET:NPO PO DIET RECOMMENDATIONS: IF SAFE FOR PO -> liberalized REGULAR/ texture per BACK GRINDER + Ensure Enlive TID ENTERAL NUTRITION RECOMMENDATIONS: CONSULT RD IF TF PART OF POC AND INDICATED: PER POLST, NO TF AT THIS TIME ADDITIONAL RECOMMENDATIONS: * Calibrated bedscale wt - bedscale wt per RD= 101lbs vs EMR ng=401vap * Monitor NPO status, ability to feed - BACK GRINDER eval pending, pt on BIPAP, altered. TF indicates no TF at this time * Monitor lytes, replete as needed * Wound healing: once able to feed-> add MVI w/ min x 1, Vit C 500mg QD -> add ZnSO4 220mg QD x 10 days -> Jeremy 1pkt BID as tolerated Alexis Ruffin Jun 03, 2019 14:42
--- NOTE | 2019-06-03 15:41 | Diagnostic Imaging Report ---
Clinical Indication: Chest pain Technique: Spiral acquisitions obtained through the chest. No IV contrast utilized, reason not stated. Multiplanar reconstructions generated. Total dose length product 613 mGycm. CTDIvol(s) 13 mGy. Dose reduction achieved using automated exposure control Comparison: Chest radiograph earlier the same day Findings: There is considerable image degradation due to motion artifact. Right lower lobe is completely ectatic. Left lower lobe is nearly completely atelectatic. The right lower lobe bronchus and segmental bronchi appear to be patent. There is suggestion of obstruction of the left lower lobe bronchus although air bronchograms are seen distally. There are moderate-sized pleural effusions bilaterally. The upper lobes and right middle lobe demonstrate interstitial septal thickening. Reticular nodular interstitial opacities are seen in the posterior upper lobes bilaterally. The heart is upper limits of normal in size. There is minimal pericardial thickening versus fluid. No mediastinal or hilar mass or adenopathy. The esophagus demonstrates mild diffuse wall thickening. The included thyroid is unremarkable. No axillary or chest wall mass or adenopathy. The included upper abdominal viscera are unremarkable. Impression: Moderate bilateral pleural effusions Bilateral lower lobe atelectasis, probably compressive in nature although there may be a component of endobronchial obstruction on the left Bilateral diffuse interstitial septal thickening. Most likely on the basis of pulmonary edema; other etiologies including inflammatory also possible. Posterior reticular opacities and nodular airspace opacities, could indicate active inflammatory changes or airspace edema Minimal pericardial thickening or fluid Mild diffuse esophageal wall thickening, could indicate esophagitis. Correlate with clinical findings The CT scanner at [facility] is accredited by the [employer] and the scans are performed using protocols designed to limit radiation exposure to as low as reasonably achievable to attain images of sufficient resolution adequate for diagnostic evaluation.
[2019-06-03 16:00] VITALS: BP 81/50
--- NOTE | 2019-06-03 17:21 | General Progress Note ---
Assessment/Plan Problem List: (1) Severe sepsis ICD Codes: A41.9 - Sepsis, unspecified organism; R65.20 - Severe sepsis without septic shock SNOMED: 69592464 (2) Acute on chronic respiratory failure with hypoxia and hypercapnia ICD Codes: J96.21 - Acute and chronic respiratory failure with hypoxia; J96.22 - Acute and chronic respiratory failure with hypercapnia SNOMED: 83280300507454 (3) Tachycardia ICD Codes: R00.0 - Tachycardia, unspecified SNOMED: 4427659 (4) Fever ICD Codes: R50.9 - Fever, unspecified SNOMED: 486428276 (5) CHF (congestive heart failure) ICD Codes: I50.9 - Heart failure, unspecified SNOMED: 17454041 (6) Iron deficiency anemia ICD Codes: D50.9 - Iron deficiency anemia, unspecified SNOMED: 88548417 (7) GERD (gastroesophageal reflux disease) ICD Codes: K21.9 - Gastro-esophageal reflux disease without esophagitis SNOMED: 464235349 (8) HTN (hypertension) ICD Codes: I10 - Essential (primary) hypertension SNOMED: 85103943 (9) Hypothyroid ICD Codes: E03.9 - Hypothyroidism, unspecified SNOMED: 72131076 (10) Pneumonia ICD Codes: J18.9 - Pneumonia, unspecified organism SNOMED: 726382976 (11) Ulcer of right heel ICD Codes: L97.419 - Non-pressure chronic ulcer of right heel and midfoot with unspecified severity SNOMED: 795692853 Status: deteriorating, fever Assessment/Plan: Dwayne Gibson is a 54 yo man with PMH of Down's syndrome (nonverbal and bedbound at baseline), CHF (unknown EF), HTN, HLD, iron deficiency anemia, hypothyroid, GERD, , and bilateral foot pressure ulcers who presented from [facility] with fever, cough, and hypoxia, found with Tm 100.5, leukocytosis with left shift, and CXR suggestive of possible bilateral infiltrate, admitted for acute on chronic hypoxemic respiratory failure and sepsis 2/2 HCAP. #Acute on chronic hypoxemic/hypercapnic respiratory failure (baseline NC 2-4L) 2 /2 HCAP and right pleural effusion- improving #Sepsis 2/2 HCAP #elevated ESR/CRP > Tm 100.5 on admission, WBC 20.5 with bands, RR to 30s, tachycardic to 130s > Lactate 1.2 > ABG on admission 7.4/39/73/24 > BCX negative to date > F/U sputum CX > ESR 119, CRp 29, osteo of ulcer? > S/p IVF NS 30cc/kg sepsis bolus and gentle continuous D5NS IVF. Will d/c IVF today given increased PVC on CXR and worsening respiratory failure. > Venous duplex negative for DVT > CXR 06/01/19 with worsening right sided pleural effusion - UA not overtly suggestive of UTI - CXR on admission with L>R bibasilar opacities, may represent small pleural effusions with atelectasis vs PNA on L and probable atelectasis on R - s/p vancomycin IV and cefepime IV in ED (05/29-05/30). -Continue IV abx for HCAP with zosyn 4.5gm IV q6hrs (05/30- ) and vancomycin 1gm IV q12hrs (05/29- ) (changed to zosyn to cover potential aspiration/ anaerobes given patient's lethargy). Plan for 5-7 days treatment pending clinical course. - Wean oxygen to keep O2 sat >/=92%. Continues to require high oxygen 60 percent FiO2 high flow - Pulm/crit care consulted, appreciate recs. Nebs scheduled q4hrs with suction q4hrs. -Will evaluate whether patient needs thoracentesis. - CT chest noncontrast ordered to evaluate for empyema - Infectious disease consulted Dr. Serrano. Appreciate recommendations - Appreciate general surgery recommendations: Dr. Ruffin - Tylenol 650mg PO q6hrs PRN pain or fever - Duonebs q4hrs ATC -Follow-up on sputum and blood cultures #hx HTN but now requiring PRN midodrine at SNF for intermittent hypotension #hx HFpEF (LVEF 55%) #hx #hx HLD - EKG with sinus tachycardia, TWI in lateral leads (no prior in chart for comparison). Troponin negative on admission. Low suspicion for acute ACS - Tachycardia 2/2 sepsis and fever, treat with abx and gentle IVF as above - TSH 3.7 - Not overtly fluid overloaded on exam although with some atelectasis/mild PVCs/ small effusion on CXR, but given sepsis will hold off on diuresis, caution with IVF - holding further fluids - Continue home midodrine 5mg PO TID PRN SBP<90 - Can resume home statin once able to tolerate PO #Encephalopathy in setting of sepsis and underlying Down's syndrome -appears to be back to baseline - Baseline nonverbal and bedbound - Treat sepsis as above - Limit sedating medications as able #dysphagia #Goals of care - appreciate speech recommendations -Post states no artificial tube feeding. Per patients primary doctor at the [facility] the patient's cousin Donnie Sheriff is not the legally recognized decision-maker. Will consult bioethics to resolve this. -Multiple attempts were made to call the patient's brother Donnie Sheriff to discuss. Unable to contact -Appreciate social worker school assistance #Mild transaminitis - resolved #Hepatitis B surface antigen positive > Ultrasound unremarkable - AST 38 and ALT 100 on admission, normalized today - F/U hepatitis panel, RUQ U/S. - Can resume home statin once able to tolerate PO -Check further hepatitis B serologies, check hepatitis B DNA #Chronic hyponatremia - improving - Na 134 on admission, now 136 - Per records from SNF, Na was 132 on 05/05/19 - Monitor BMP #hx Hypothyroid - TSH 3.7 - Continue home levothyroxine 25mcg PO TThSat and 50mcg PO SunMWF - May need to change to IV if patient remains unable to tolerate PO #hx GERD - Pepcid for home omeprazole #hx iron deficiency anemia - H/H stable - Continue home ferrous sulfate 325mg PO daily #Right heel wound - Present on admission - Appreciate wound care/surgery consult - Wound care as per recs FEN IVF: D5 1/2 NS @ 50 cc/hr with 20 MEQ KCL DVT ppx: Heparin subq GI ppx: Pepcid Code Status: DNR/DNI with limited interventions Reason for continued hospitalization: Acute hypoxic respiratory failure 37 minutes spent on this encounter. Discussed with pulmonology, RN, Infectious disease, and PCP. > 50% spent on counseling and care coordination. Time of note may not reflect time patient was seen. Subjective Date patient seen: Jun 03, 2019 ROS Limited/Unobtainable: Yes - Patient nonverbal at baseline Allergies: Coded Allergies: KETAMINE (Verified Allergy, Unknown, 05/29/19) NSAIDS (NON-STEROIDAL ANTI-INFLAMMA (Verified Allergy, Unknown, 05/29/19) Subjective No acute events overnight per nursing. Patient titrated down to 6 L nasal cannula. Saturating 95%. Further subjective history unable to be obtained as patient is nonverbal Objective Last 24 Hour Vital Signs Date Time Temp Pulse Resp B/P (MAP) Pulse Ox O2 Delivery O2 Flow Rate FiO2 06/03/19 16:00 Nasal Cannula 40.0 06/03/19 16:00 40.0 60 06/03/19 15:24 93 High Flow 40.0 60 06/03/19 15:11 91 20 93 High Flow 40.0 60 98 22 97 06/03/19 12:00 99.0 89 22 100/61 (74) 93 06/03/19 12:00 Nasal Cannula 40.0 06/03/19 12:00 40.0 60 06/03/19 11:37 88 20 97 High Flow 40.0 60 84 20 97 06/03/19 11:36 97 High Flow 40.0 60 06/03/19 11:33 78 06/03/19 08:00 Nasal Cannula 40.0 06/03/19 08:00 98.0 96 25 94/56 (69) 96 06/03/19 08:00 40.0 60 06/03/19 07:53 97 06/03/19 07:42 102 22 96 High Flow 40.0 60 98 22 95 06/03/19 07:39 95 High Flow 40.0 60 06/03/19 04:00 95 06/03/19 04:00 40.0 60 06/03/19 04:00 Nasal Cannula 40.0 06/03/19 04:00 99.5 97 27 94/61 (72) 94 06/03/19 03:20 107 20 96 High Flow 40.0 60 06/03/19 03:05 102 20 93 High Flow 40.0 60 06/03/19 03:04 93 High Flow 40.0 60 06/03/19 00:00 97 06/03/19 00:00 Nasal Cannula 40.0 06/03/19 00:00 99.7 97 28 98/58 (71) 93 06/02/19 23:39 118 22 96 High Flow 40.0 60 06/02/19 23:23 98 20 92 High Flow 40.0 60 06/02/19 23:22 92 High Flow 40.0 60 06/02/19 20:00 98.6 95 24 97/57 (70) 93 06/02/19 20:00 Nasal Cannula 40.0 06/02/19 20:00 81 06/02/19 20:00 40.0 60 06/02/19 19:52 110 20 95 High Flow 40.0 60 06/02/19 19:37 87 20 93 High Flow 40.0 60 06/02/19 19:36 93 High Flow 40.0 60 Intake and Output 06/02/19 06/03/19 19:00 07:00 Intake Total 1112.500 ml 1276.8108 ml Output Total 100 ml 50 ml Balance 1012.500 ml 1226.8108 ml Intake IV Total 1112.500 ml 1276.8108 ml Output Urine Total 100 ml 50 ml # Voids 2 1 # Bowel Movements 2 Laboratory Tests 06/03/19 03:55: Sodium Level 138, Potassium Level 3.3L, Chloride Level 103, Carbon Dioxide Level 25, Anion Gap 10, Blood Urea Nitrogen 12, Creatinine 0.7, Estimat Glomerular Filtration Rate > 60, Glucose Level 58L, Calcium Level 8.5, Phosphorus Level 2.9, Magnesium Level 1.9 06/03/19 07:55: White Blood Count 11.4H, Red Blood Count 3.01L, Hemoglobin 10.1L, Hematocrit 29.0L, Mean Corpuscular Volume 96, Mean Corpuscular Hemoglobin 33.5H, Mean Corpuscular Hemoglobin Concent 34.8, Red Cell Distribution Width 11.9, Platelet Count 392, Mean Platelet Volume 5.8L, Neutrophils (%) (Auto) 75.2H, Lymphocytes (%) (Auto) 15.9L, Monocytes (%) (Auto) 6.2, Eosinophils (%) (Auto) 1.4, Basophils (%) (Auto) 1.3 06/03/19 10:55: Hepatitis B Surface Antibody, Quant [Pending], Hepatitis B Core Total Antibody [ Pending], Hepatitis B DNA (IU/mL) [Pending], Hepatitis Be Antibody [Pending], Hepatitis Be Antigen [Pending] Height (Feet): 5 Height (Inches): 1.00 Weight (Pounds): 104 General Appearance: WD/WN, no apparent distress, alert EENT: PERRL/EOMI, normal ENT inspection Neck: non-tender, normal alignment, supple Cardiovascular: normal peripheral pulses, normal rate, regular rhythm, no JVD Respiratory/Chest: chest wall non-tender, other - Coarse breath sounds bilaterally, decreased breath sounds at the bases bilaterally. No wheezes Abdomen: normal bowel sounds, non tender, soft Extremities: normal range of motion, non-tender, normal inspection Neurologic: clinical operations specialist II-XII grossly normal, no motor/sensory deficits, alert, oriented x 3, responsive Skin: normal pigmentation, warm/dry Joseph Durán D.O. Jun 03, 2019 17:21
[2019-06-03 20:00] VITALS: BP 147/72
[2019-06-04] VITALS: BP 100/60
[2019-06-04] MEDS: Albuterol/Ipratropium 3ml neb HHN SCH ×6 (03:07→23:28)
[2019-06-04 04:00] VITALS: BP 90/60
[2019-06-04 05:13] LABS: BASOPHILS % (AUTO) 1.1 % (0.0-2.0); EOSINOPHILS % (AUTO) 1.9 % (0.0-3.0); HEMATOCRIT 28.7 % (42.0-52.0); HEMOGLOBIN 9.9 G/DL (14.2-18.0); MEAN CORPUSCULAR VOLUME 97 FL (80-99); MONOCYTES % (AUTO) 7.1 % (1.0-10.0); NEUTROPHILS % (AUTO) 72.8 % (45.0-75.0); PLATELET COUNT 423 K/UL (150-450); RED BLOOD COUNT 2.96 M/UL (4.70-6.10); RED CELL DISTRIBUTION WIDTH 11.7 % (11.6-14.8); WHITE BLOOD COUNT 10.4 K/UL (4.8-10.8)
[2019-06-04 05:14] LABS: ANION GAP 6 mmol/L (5-15); BLOOD UREA NITROGEN 4 mg/dL (7-18); CALCIUM 8.3 MG/DL (8.5-10.1); CARBON DIOXIDE 27 MMOL/L (21-32); CHLORIDE 104 MMOL/L (98-107); CREATININE 0.7 MG/DL (0.55-1.30); POTASSIUM 3.4 MMOL/L (3.5-5.1); SODIUM 137 MMOL/L (136-145)
[2019-06-04] MEDS: Levothyroxine 25mcg tab ORAL SCH (05:48)
[2019-06-04] MEDS: Piperacillin/Tazobactam 3.375 GM in D5W 110 ML IVPB SCH ×3 (05:50→21:11)
[2019-06-04 08:00] VITALS: BP 93/54
[2019-06-04] MEDS: Zinc Sulfate 220mg cap ORAL SCH (08:49)
[2019-06-04] MEDS: Ascorbic Acid 500mg tab ORAL SCH (08:49)
[2019-06-04] MEDS: Vitamin B-12 100mcg tab ORAL SCH (08:49)
[2019-06-04] MEDS: Docusate 100mg cap ORAL SCH ×3 (08:49→17:24)
[2019-06-04] MEDS: Vancomycin 1 GM in NS 275 ML IVPB SCH ×2 (09:02→20:07)
[2019-06-04] MEDS: Heparin 5000 units/ml inj SUBQ SCH ×2 (09:06→20:07)
[2019-06-04 12:00] VITALS: BP 122/70
--- NOTE | 2019-06-04 13:09 | Surgery Progress Note ---
Surgery Progress Note Subjective Additional Comments leukocytosis resolved improving exam stable Objective Last 24 Hour Vital Signs Date Time Temp Pulse Resp B/P (MAP) Pulse Ox O2 Delivery O2 Flow Rate FiO2 06/04/19 12:00 40.0 40 06/04/19 12:00 98.2 94 27 122/70 (87) 98 06/04/19 11:17 96 High Flow 40.0 60 06/04/19 11:16 66 18 100 High Flow 40.0 60 67 20 96 06/04/19 08:00 98.9 93 26 93/54 (67) 99 06/04/19 08:00 Nasal Cannula 40.0 06/04/19 08:00 40.0 40 06/04/19 07:43 82 06/04/19 07:18 68 18 100 High Flow 40.0 60 69 18 97 06/04/19 07:17 98 High Flow 40.0 60 06/04/19 04:00 81 06/04/19 04:00 Nasal Cannula 40.0 06/04/19 04:00 99.3 93 28 90/60 (70) 99 06/04/19 04:00 40.0 60 06/04/19 02:55 95 20 99 High Flow 40.0 60 95 18 97 06/04/19 00:00 101 06/04/19 00:00 100.0 99 24 100/60 (73) 100 06/04/19 00:00 Nasal Cannula 40.0 06/03/19 22:48 99 20 100 High Flow 40.0 60 98 18 99 06/03/19 20:00 Nasal Cannula 40.0 06/03/19 20:00 40.0 60 06/03/19 20:00 100.1 93 26 147/72 (97) 95 06/03/19 19:34 111 06/03/19 19:32 97 High Flow 40.0 60 06/03/19 19:32 104 20 98 High Flow 40.0 60 108 20 97 06/03/19 16:00 Nasal Cannula 40.0 06/03/19 16:00 99.2 102 24 81/50 (60) 97 06/03/19 16:00 40.0 60 06/03/19 15:36 96 06/03/19 15:24 93 High Flow 40.0 60 06/03/19 15:11 91 20 93 High Flow 40.0 60 98 22 97 I&O Intake and Output 06/03/19 06/04/19 18:59 06:59 Intake Total 1126.083 ml 389.583 ml Output Total 400 ml 1450 ml Balance 726.083 ml -1060.417 ml Intake Oral 280 ml IV Total 846.083 ml 389.583 ml Output Urine Total 400 ml 1450 ml # Voids 1 # Bowel Movements 1 Dressing: dry Wound: clean Cardiovascular: RSR Respiratory: clear Abdomen: soft, non-tender, present bowel sounds Extremities: no cyanosis Laboratory Tests Test 06/03/19 18:50 06/04/19 03:15 Vancomycin Level Trough 15.8 ug/mL (5.0-12.0) H White Blood Count 10.4 K/UL (4.8-10.8) Red Blood Count 2.96 M/UL (4.70-6.10) L Hemoglobin 9.9 G/DL (14.2-18.0) L Hematocrit 28.7 % (42.0-52.0) L Mean Corpuscular Volume 97 FL (80-99) Mean Corpuscular Hemoglobin 33.5 PG (27.0-31.0) H Mean Corpuscular Hemoglobin Concent 34.4 G/DL (32.0-36.0) Red Cell Distribution Width 11.7 % (11.6-14.8) Platelet Count 423 K/UL (150-450) Mean Platelet Volume 5.8 FL (6.5-10.1) L Neutrophils (%) (Auto) 72.8 % (45.0-75.0) Lymphocytes (%) (Auto) 17.0 % (20.0-45.0) L Monocytes (%) (Auto) 7.1 % (1.0-10.0) Eosinophils (%) (Auto) 1.9 % (0.0-3.0) Basophils (%) (Auto) 1.1 % (0.0-2.0) Sodium Level 137 MMOL/L (136-145) Potassium Level 3.4 MMOL/L (3.5-5.1) L Chloride Level 104 MMOL/L (98-107) Carbon Dioxide Level 27 MMOL/L (21-32) Anion Gap 6 mmol/L (5-15) Blood Urea Nitrogen 4 mg/dL (7-18) L Creatinine 0.7 MG/DL (0.55-1.30) Estimat Glomerular Filtration Rate > 60 mL/min (>60) Glucose Level 104 MG/DL (74-106) Calcium Level 8.3 MG/DL (8.5-10.1) L Plan Problems: (1) Ulcer of right heel Assessment & Plan: This is a 54-year-old male with multiple medical comorbidities who is currently presented for fever and tachycardia. Patient identified to have abnormal decubitus pressure ulcer on right heel. On examination patient has a stage III full-thickness right heel decubitus ulcer periwound intact but mildly macerated. Surrounding erythema. No drainage. No underlying abscess. No bone palpable. No foul odor. Labs noted and identified. No signs of acute active inflammatory or infectious process from this. Patient does have a leukocytosis that significant. Will continue work-up for etiology Will recommend local wound care. Apply Thera honey followed by up to foam dressing daily. We will monitor. Thank you for this consultation we will follow with recommendations (2) Fever Assessment & Plan: Low-grade fevers, tachycardia, leukocytosis, abnormal labs Head to toe skin integrity and wound eval completed as above UA noted chest x-ray noted Possible aspiration pneumonia Continue antibiotics as per infectious disease IV fluids Patient not eating well and currently DNR/DNI and does not have feeding tube. Will get speech and swallow eval prior to diet (3) Tachycardia (4) Severe sepsis Assessment & Plan: DAILY ESTIMATED NEEDS: Needs based on wound, wasting, pulmonary/ 46kg 30-35 kcals/kg 3569-3123 total kcals 1.3-1.8 g protein/kg 60-83 g total protein 25-30 mL/kg 3538-7232 total fluid mLs NUTRITION DIAGNOSIS: * Swallowing difficulty R/T dysphagia, respiratory status as evidenced by h/o Down's syndrome, pt on pureed texture diet [employer]DER [employer], currently NPO, on BIPAP. * Increased kcal/prot needs R/T wound healing and wasting as evidenced by pt admitted w/ stage 3 rt heel wound, w/ mild-moderate generalized wasting. CURRENT DIET:NPO PO DIET RECOMMENDATIONS: IF SAFE FOR PO -> liberalized REGULAR/ texture per SPECIAL DIET COOK + Ensure Enlive TID ENTERAL NUTRITION RECOMMENDATIONS: CONSULT RD IF TF PART OF POC AND INDICATED: PER POLST, NO TF AT THIS TIME ADDITIONAL RECOMMENDATIONS: * Calibrated bedscale wt - bedscale wt per RD= 101lbs vs EMR ui=[id number] * Monitor NPO status, ability to feed - SPECIAL DIET COOK eval pending, pt on BIPAP, altered. TF indicates no TF at this time * Monitor lytes, replete as needed * Wound healing: once able to feed-> add MVI w/ min x 1, Vit C 500mg QD -> add ZnSO4 220mg QD x 10 days -> Jeremy 1pkt BID as tolerated Alexis Ruffin Jun 04, 2019 13:09
[2019-06-04] MEDS: D5 1/2NS w/KCl 20mEq 1,000 ML IV SCH (13:50)
[2019-06-04 16:00] VITALS: BP 138/56
[2019-06-04] MEDS ORDERED: Tubing IV Secondary IV ONE (16:10)
[2019-06-04] MEDS ORDERED: NS 275ml ONE (16:10)
--- NOTE | 2019-06-04 16:22 | Pulmonology Progress Note ---
Assessment/Plan Problems: (1) Pneumonia (2) Acute and chronic respiratory failure with hypoxia (3) Severe sepsis (4) Fever (5) Down's syndrome (6) Tachycardia (7) Hypothyroid (8) HLD (hyperlipidemia) (9) HTN (hypertension) (10) GERD (gastroesophageal reflux disease) (11) Iron deficiency anemia (12) CHF (congestive heart failure) Assessment/Plan Problem List: 1. HCAP/BLL PNA, likely aspiration 2. Hypercapnic hypoxemic respiratory failure. 3. Down syndrome. 4. Small/mod b effusions 5. HTN & Hyperlipidemia 6. Gastroesophageal reflux disease. 7. Decubitus ulcers. Plan: -ABG -BiPAP 12/5 qhs and prn - ENCOURAGE NOCTURNAL USAGE -Titrate high flow nasal cannula -cont abx per ID -monitor effusions -BICYCLE REPAIR TECHNICIAN recs, VSS, GT not within GOC -DNAR/DNI Case d/w RN Subjective Allergies: Coded Allergies: KETAMINE (Verified Allergy, Unknown, 05/29/19) NSAIDS (NON-STEROIDAL ANTI-INFLAMMA (Verified Allergy, Unknown, 05/29/19) Subjective AF on HFO2 40% VSS - did not use BiPAP CT reviewed - dense b LL inf with ABG's small/mod effusions Less interactive today + cough + SOB no FC Objective Last 24 Hour Vital Signs Date Time Temp Pulse Resp B/P (MAP) Pulse Ox O2 Delivery O2 Flow Rate FiO2 06/04/19 16:00 40.0 40 06/04/19 15:25 99 22 100 High Flow 40.0 60 93 22 96 06/04/19 12:00 40.0 40 06/04/19 12:00 98.2 94 27 122/70 (87) 98 06/04/19 12:00 Nasal Cannula 40.0 06/04/19 11:39 74 06/04/19 11:17 96 High Flow 40.0 60 06/04/19 11:16 66 18 100 High Flow 40.0 60 67 20 96 06/04/19 08:00 98.9 93 26 93/54 (67) 99 06/04/19 08:00 Nasal Cannula 40.0 06/04/19 08:00 40.0 40 06/04/19 07:43 82 06/04/19 07:18 68 18 100 High Flow 40.0 60 69 18 97 06/04/19 07:17 98 High Flow 40.0 60 06/04/19 04:00 81 06/04/19 04:00 Nasal Cannula 40.0 06/04/19 04:00 99.3 93 28 90/60 (70) 99 06/04/19 04:00 40.0 60 06/04/19 02:55 95 20 99 High Flow 40.0 60 95 18 97 06/04/19 00:00 101 06/04/19 00:00 100.0 99 24 100/60 (73) 100 06/04/19 00:00 Nasal Cannula 40.0 06/03/19 22:48 99 20 100 High Flow 40.0 60 98 18 99 06/03/19 20:00 Nasal Cannula 40.0 06/03/19 20:00 40.0 60 06/03/19 20:00 100.1 93 26 147/72 (97) 95 06/03/19 19:34 111 06/03/19 19:32 97 High Flow 40.0 60 06/03/19 19:32 104 20 98 High Flow 40.0 60 108 20 97 Intake and Output 06/03/19 06/04/19 19:00 07:00 Intake Total 1030 ml 417.083 ml Output Total 400 ml 1450 ml Balance 630 ml -1032.917 ml Intake Oral 280 ml IV Total 750 ml 417.083 ml Output Urine Total 400 ml 1450 ml # Voids 1 # Bowel Movements 1 General Appearance: no acute distress, cachetic HEENT: normocephalic, atraumatic, anicteric, mucous membranes moist Respiratory/Chest: rhonchi Cardiovascular: normal peripheral pulses, normal rate, regular rhythm Abdomen: normal bowel sounds, soft, non tender, no organomegaly, non distended , no mass Extremities: no cyanosis, no clubbing, other - trace Laboratory Tests 06/03/19 18:50: Vancomycin Level Trough 15.8H 06/04/19 03:15: White Blood Count 10.4, Red Blood Count 2.96L, Hemoglobin 9.9L, Hematocrit 28.7L , Mean Corpuscular Volume 97, Mean Corpuscular Hemoglobin 33.5H, Mean Corpuscular Hemoglobin Concent 34.4, Red Cell Distribution Width 11.7, Platelet Count 423, Mean Platelet Volume 5.8L, Neutrophils (%) (Auto) 72.8, Lymphocytes ( %) (Auto) 17.0L, Monocytes (%) (Auto) 7.1, Eosinophils (%) (Auto) 1.9, Basophils (%) (Auto) 1.1, Sodium Level 137, Potassium Level 3.4L, Chloride Level 104, Carbon Dioxide Level 27, Anion Gap 6, Blood Urea Nitrogen 4L, Creatinine 0.7, Estimat Glomerular Filtration Rate > 60, Glucose Level 104, Calcium Level 8.3L Current Medications Medications (Trade) Dose Ordered Sig/Kendra Route PRN Reason Start Time Stop Time Status Last Admin Dose Admin Acetaminophen (Tylenol) 650 mg Q6H PRN RECTAL Mild Pain (Pain Scale 1-3) 05/31/19 01:15 06/30/19 01:14 05/31/19 21:17 Acetylcysteine (Mucomyst) 100 mg Q4HRT N 05/31/19 17:00 06/30/19 16:59 06/04/19 15:24 Albuterol/ Ipratropium (Albuterol/ Ipratropium) 3 ml Q4HRT N 05/31/19 17:00 06/05/19 16:59 06/04/19 15:24 Ascorbic Acid (Vitamin C) 500 mg DAILY ORAL 06/02/19 09:00 07/02/19 08:59 06/03/19 08:38 Bisacodyl (Dulcolax) 10 mg DAILYPRN PRN RECTAL constipation 05/31/19 10:45 06/29/19 10:44 Cyanocobalamin (Vitamin B-12 Tab) 100 mcg DAILY ORAL 05/31/19 09:00 06/30/19 08:59 06/03/19 08:38 Dextrose/ Electrolytes 1,000 ml @ 50 mls/hr Q20H IV 06/03/19 17:22 07/03/19 17:21 06/04/19 13:50 Docusate Sodium (Colace) 100 mg THREE TIMES A DAY ORAL 05/31/19 09:00 06/29/19 12:59 06/03/19 08:38 Famotidine (Pepcid I.v.) 20 mg Q12HR IVP 05/31/19 09:00 06/30/19 08:59 06/04/19 09:02 Ferrous Sulfate (Feosol) 325 mg DAILY ORAL 05/31/19 09:00 06/30/19 08:59 06/03/19 08:38 Heparin Sodium (Porcine) (Heparin 5000 units/ml) 5,000 units EVERY 12 HOURS SUBQ 05/31/19 09:00 06/29/19 08:59 06/04/19 09:06 Levothyroxine Sodium (Synthroid) 25 mcg DAILY IV 06/04/19 10:30 07/04/19 10:29 06/04/19 10:58 Lorazepam (Ativan 2mg/ml 1ml) 1 mg EVERY 6 HOURS PRN IV For Anxiety 05/31/19 06:00 06/05/19 23:14 Midodrine (Pro-Amatine) 5 mg TIDPRN PRN ORAL SBP<90 05/31/19 13:00 06/29/19 12:59 Multivitamins (Multivitamins) 1 tab DAILY ORAL 06/02/19 09:00 07/02/19 08:59 06/03/19 08:38 Piperacillin Sod/ Tazobactam Sod 3.375 gm/Dextrose 110 ml @ 27.5 mls/hr Q8HR IVPB 05/31/19 06:00 06/06/19 13:59 06/04/19 15:33 Vancomycin HCl (Vanco rx to dose) 1 ea DAILY PRN MISC Per rx protocol 05/31/19 09:00 06/28/19 23:14 Vancomycin HCl 1 gm/Sodium Chloride 275 ml @ 183.708 mls/hr Q12H IVPB 06/02/19 20:00 06/07/19 07:59 06/04/19 09:02 Zinc Sulfate (Zinc Sulfate) 220 mg DAILY ORAL 06/02/19 09:00 06/12/19 08:59 06/03/19 08:38 Yovani Luevano MD Jun 04, 2019 16:22
--- NOTE | 2019-06-04 16:49 | General Progress Note ---
Assessment/Plan Problem List: (1) Severe sepsis ICD Codes: A41.9 - Sepsis, unspecified organism; R65.20 - Severe sepsis without septic shock SNOMED: 08193080 (2) Acute on chronic respiratory failure with hypoxia and hypercapnia ICD Codes: J96.21 - Acute and chronic respiratory failure with hypoxia; J96.22 - Acute and chronic respiratory failure with hypercapnia SNOMED: 98986378112993 (3) Tachycardia ICD Codes: R00.0 - Tachycardia, unspecified SNOMED: 5253860 (4) Fever ICD Codes: R50.9 - Fever, unspecified SNOMED: 438548053 (5) CHF (congestive heart failure) ICD Codes: I50.9 - Heart failure, unspecified SNOMED: 21439564 (6) Iron deficiency anemia ICD Codes: D50.9 - Iron deficiency anemia, unspecified SNOMED: 23663214 (7) GERD (gastroesophageal reflux disease) ICD Codes: K21.9 - Gastro-esophageal reflux disease without esophagitis SNOMED: 230444895 (8) HTN (hypertension) ICD Codes: I10 - Essential (primary) hypertension SNOMED: 25296899 (9) Hypothyroid ICD Codes: E03.9 - Hypothyroidism, unspecified SNOMED: 42915510 (10) Pneumonia ICD Codes: J18.9 - Pneumonia, unspecified organism SNOMED: 410393137 (11) Ulcer of right heel ICD Codes: L97.419 - Non-pressure chronic ulcer of right heel and midfoot with unspecified severity SNOMED: 538321437 Status: deteriorating, fever Assessment/Plan: Dwayne Gibson is a 54 yo man with PMH of Down's syndrome (nonverbal and bedbound at baseline), CHF (unknown EF), HTN, HLD, iron deficiency anemia, hypothyroid, GERD, , and bilateral foot pressure ulcers who presented from [facility] with fever, cough, and hypoxia, found with Tm 100.5, leukocytosis with left shift, and CXR suggestive of possible bilateral infiltrate, admitted for acute on chronic hypoxemic respiratory failure and sepsis 2/2 HCAP. #Acute on chronic hypoxemic/hypercapnic respiratory failure (baseline NC 2-4L) 2 /2 HCAP and right pleural effusion- improving #Sepsis 2/2 HCAP #elevated ESR/CRP > Tm 100.5 on admission, WBC 20.5 with bands, RR to 30s, tachycardic to 130s > Lactate 1.2 > ABG on admission 7.4/39/73/24 > BCX negative to date > F/U sputum CX > ESR 119, CRp 29, osteo of ulcer? > S/p IVF NS 30cc/kg sepsis bolus and gentle continuous D5NS IVF. Will d/c IVF today given increased PVC on CXR and worsening respiratory failure. > Venous duplex negative for DVT > CXR 06/01/19 with worsening right sided pleural effusion > CT chest performed showing bilateral pneumonia and moderate pleural effusions - UA not overtly suggestive of UTI - CXR on admission with L>R bibasilar opacities, may represent small pleural effusions with atelectasis vs PNA on L and probable atelectasis on R - s/p vancomycin IV and cefepime IV in ED (05/29-05/30). -Continue IV abx for HCAP with zosyn 4.5gm IV q6hrs (05/30- ) and vancomycin 1gm IV q12hrs (05/29- ) (changed to zosyn to cover potential aspiration/ anaerobes given patient's lethargy). Plan for 5-7 days treatment pending clinical course. - Wean oxygen to keep O2 sat >/=92%. Continues to require high oxygen 60 percent FiO2 high flow - Pulm/crit care consulted, appreciate recs. Nebs scheduled q4hrs with suction q4hrs. -Will evaluate whether patient needs thoracentesis. - CT chest noncontrast ordered to evaluate for empyema - Infectious disease consulted Dr. Serrano. Appreciate recommendations - Appreciate general surgery recommendations: Dr. Ruffin - Tylenol 650mg PO q6hrs PRN pain or fever - Duonebs q4hrs ATC -Follow-up on sputum and blood cultures #hx HTN but now requiring PRN midodrine at SNF for intermittent hypotension #hx HFpEF (LVEF 55%) #hx #hx HLD - EKG with sinus tachycardia, TWI in lateral leads (no prior in chart for comparison). Troponin negative on admission. Low suspicion for acute ACS - Tachycardia 2/2 sepsis and fever, treat with abx and gentle IVF as above - holding further fluids - Continue home midodrine 5mg PO TID PRN SBP<90 - Can resume home statin once able to tolerate PO #Encephalopathy in setting of sepsis and underlying Down's syndrome -appears to be back to baseline - Baseline nonverbal and bedbound - Treat sepsis as above - Limit sedating medications as able #dysphagia #Goals of care - appreciate speech recommendations -Post states no artificial tube feeding. Per patients primary doctor at the [facility] the patient's cousin Donnie Sheriff is not the legally recognized decision-maker. Will consult bioethics to resolve this. -Multiple attempts were made to call the patient's brother Donnie Sheriff to discuss. Unable to contact -Appreciate social problems specialist assistance #Mild transaminitis - resolved #Hepatitis B surface antigen positive > Ultrasound unremarkable - AST 38 and ALT 100 on admission, normalized today - F/U hepatitis panel, RUQ U/S. - Can resume home statin once able to tolerate PO -Check further hepatitis B serologies, check hepatitis B DNA #Chronic hyponatremia - improving - Na 134 on admission, now 136 - Per records from SNF, Na was 132 on 05/05/19 - Monitor BMP #hx Hypothyroid - TSH 3.7 -Levothyroxine 25 mg IV daily. Will switch to p.o. once patient able to tolerate #hx GERD - Pepcid for home omeprazole #hx iron deficiency anemia - H/H stable - Continue home ferrous sulfate 325mg PO daily #Right heel wound - Present on admission - Appreciate wound care/surgery consult - Wound care as per recs #Dysphasia #Goals of care -Discussed with healthcare decision-maker Mr. Sheriff the patient's cousin for 33 minutes. Discussed goals of care including tube feedings. Mr. Sheriff would like to continue CODE STATUS of DNR/DNI as per the POLST, however he is okay with tube feedings temporarily -We will initiate tube feedings today FEN IVF: D5 1/2 NS @ 50 cc/hr with 20 MEQ KCL DVT ppx: Heparin subq GI ppx: Pepcid Code Status: DNR/DNI with limited interventions Diet: Tube feedings Reason for continued hospitalization: Acute hypoxic respiratory failure 36 minutes spent on this encounter. Discussed with pulmonology, RN, Infectious disease, and healthcare decision maker. > 50% spent on counseling and care coordination. Spent an additional 33 minutes today discussing goals of care as detailed above. Time of note may not reflect time patient was seen. Subjective Date patient seen: Jun 04, 2019 ROS Limited/Unobtainable: Yes - Patient is nonverbal Allergies: Coded Allergies: KETAMINE (Verified Allergy, Unknown, 05/29/19) NSAIDS (NON-STEROIDAL ANTI-INFLAMMA (Verified Allergy, Unknown, 05/29/19) Subjective No acute events overnight per nursing. Patient desaturated last night and placed back on high flow 40 L at 40% FiO2. He continues to be lethargic. Unable to eat today because of dysphagia. Further subjective history unable to be obtained as patient is nonverbal Objective Last 24 Hour Vital Signs Date Time Temp Pulse Resp B/P (MAP) Pulse Ox O2 Delivery O2 Flow Rate FiO2 06/04/19 16:00 40.0 40 06/04/19 15:25 99 22 100 High Flow 40.0 60 93 22 96 06/04/19 12:00 40.0 40 06/04/19 12:00 98.2 94 27 122/70 (87) 98 06/04/19 12:00 Nasal Cannula 40.0 06/04/19 11:39 74 06/04/19 11:17 96 High Flow 40.0 60 06/04/19 11:16 66 18 100 High Flow 40.0 60 67 20 96 06/04/19 08:00 98.9 93 26 93/54 (67) 99 06/04/19 08:00 Nasal Cannula 40.0 06/04/19 08:00 40.0 40 06/04/19 07:43 82 06/04/19 07:18 68 18 100 High Flow 40.0 60 69 18 97 06/04/19 07:17 98 High Flow 40.0 60 06/04/19 04:00 81 06/04/19 04:00 Nasal Cannula 40.0 06/04/19 04:00 99.3 93 28 90/60 (70) 99 06/04/19 04:00 40.0 60 06/04/19 02:55 95 20 99 High Flow 40.0 60 95 18 97 06/04/19 00:00 101 06/04/19 00:00 100.0 99 24 100/60 (73) 100 06/04/19 00:00 Nasal Cannula 40.0 06/03/19 22:48 99 20 100 High Flow 40.0 60 98 18 99 06/03/19 20:00 Nasal Cannula 40.0 06/03/19 20:00 40.0 60 06/03/19 20:00 100.1 93 26 147/72 (97) 95 06/03/19 19:34 111 06/03/19 19:32 97 High Flow 40.0 60 06/03/19 19:32 104 20 98 High Flow 40.0 60 108 20 97 Intake and Output 06/03/19 06/04/19 19:00 07:00 Intake Total 1030 ml 417.083 ml Output Total 400 ml 1450 ml Balance 630 ml -1032.917 ml Intake Oral 280 ml IV Total 750 ml 417.083 ml Output Urine Total 400 ml 1450 ml # Voids 1 # Bowel Movements 1 Laboratory Tests 06/03/19 18:50: Vancomycin Level Trough 15.8H 06/04/19 03:15: White Blood Count 10.4, Red Blood Count 2.96L, Hemoglobin 9.9L, Hematocrit 28.7L , Mean Corpuscular Volume 97, Mean Corpuscular Hemoglobin 33.5H, Mean Corpuscular Hemoglobin Concent 34.4, Red Cell Distribution Width 11.7, Platelet Count 423, Mean Platelet Volume 5.8L, Neutrophils (%) (Auto) 72.8, Lymphocytes ( %) (Auto) 17.0L, Monocytes (%) (Auto) 7.1, Eosinophils (%) (Auto) 1.9, Basophils (%) (Auto) 1.1, Sodium Level 137, Potassium Level 3.4L, Chloride Level 104, Carbon Dioxide Level 27, Anion Gap 6, Blood Urea Nitrogen 4L, Creatinine 0.7, Estimat Glomerular Filtration Rate > 60, Glucose Level 104, Calcium Level 8.3L 06/04/19 16:23: Arterial Blood pH 7.404, Arterial Blood Partial Pressure CO2 44.3, Arterial Blood Partial Pressure O2 67.9L, Arterial Blood HCO3 27.1H, Arterial Blood Oxygen Saturation 93.1L, Arterial Blood Base Excess 2.0, Jonathan Test Positive Height (Feet): 5 Height (Inches): 1.00 Weight (Pounds): 104 General Appearance: WD/WN, no apparent distress, alert, lethargic EENT: PERRL/EOMI, normal ENT inspection Neck: non-tender, normal alignment, supple Cardiovascular: normal peripheral pulses, normal rate, regular rhythm, no JVD Respiratory/Chest: chest wall non-tender, other - Coarse breath sounds bilaterally Abdomen: normal bowel sounds, non tender, soft Extremities: normal range of motion, non-tender Edema: other - No lower extremity edema bilaterally Neurologic: tray checker II-XII grossly normal, no motor/sensory deficits, alert, oriented x 3, responsive Skin: normal pigmentation, warm/dry Joseph Durán D.O. Jun 04, 2019 16:49
--- NOTE | 2019-06-04 17:26 | Infectious Diseases Prog Note ---
Assessment/Plan Assessment/Plan ASSESSMENT AND PLAN: 1. aspiration pna/HCAP, sepsis, leukocytosis, fevers, sirs, sob - vancomycin and zosyn - day # 5 antibiotic combination - sputum culture with normal shoshana but patient on abx prior to sputum culture - monitor labs and chest x-ray - monitor clinically - length of abx tx will be determined by clinical response, will need at least 7 days abx 2. Hypoxic. Continue treatment per Pulmonary Medicine. The patient is on a breathing mask. 3. Right heel wound was noted. He has been seen by Surgery. Upon reviewing the Surgery note, it does not seem to be acutely infected. Continue wound care per Surgery. 4. The patient has history of Down syndrome. 5. Nonverbal. 6. Hypothyroidism. Continue thyroid supplementation. 7. Hypertension. Continue blood pressure treatment per primary care team. 8. Congestive heart failure. 9. Hyperlipidemia. 10. Anemia. 11. Gastroesophageal reflux disease. 12. . 13. Hypoxia. 14. Breathing mask. 15. Wound care protocol. Continue wound treatment per protocol. 16. Allergies to ketamine and NSAIDs. 17. Social history is negative. 18. Family history is noncontributory. 19. MAR is noted. 20. Case was discussed with RN. 21. Case was discussed with Dr. Durán. 22. mrsa and vre colonization Subjective Constitutional: Reports: fatigue, other - fever curve better, still sob but less, + breathing mask; Denies: fever HEENT: Reports: congestion - less Respiratory: Reports: shortness of breath - less Cardiovascular: Reports: chest pain Gastrointestinal/Abdominal: Denies: nausea, vomiting, diarrhea Genitourinary: Reports: other - no jones Neurologic: Reports: weakness, other - opens eyes, lethargic Psychiatric: Reports: other - NA Skin: Denies: rash Hematologic: Denies: bleeding Musculoskeletal: Reports: other - NA Allergies: Coded Allergies: KETAMINE (Verified Allergy, Unknown, 05/29/19) NSAIDS (NON-STEROIDAL ANTI-INFLAMMA (Verified Allergy, Unknown, 05/29/19) Objective Vital Signs Last 24 Hour Vital Signs Date Time Temp Pulse Resp B/P (MAP) Pulse Ox O2 Delivery O2 Flow Rate FiO2 06/04/19 16:00 40.0 40 06/04/19 15:25 99 22 100 High Flow 40.0 60 93 22 96 06/04/19 12:00 40.0 40 10/17/19 12:00 98.2 94 27 122/70 (87) 98 06/04/19 12:00 Nasal Cannula 40.0 06/04/19 11:39 74 06/04/19 11:17 96 High Flow 40.0 60 06/04/19 11:16 66 18 100 High Flow 40.0 60 67 20 96 06/04/19 08:00 98.9 93 26 93/54 (67) 99 06/04/19 08:00 Nasal Cannula 40.0 06/04/19 08:00 40.0 40 06/04/19 07:43 82 06/04/19 07:18 68 18 100 High Flow 40.0 60 69 18 97 06/04/19 07:17 98 High Flow 40.0 60 06/04/19 04:00 81 06/04/19 04:00 Nasal Cannula 40.0 06/04/19 04:00 99.3 93 28 90/60 (70) 99 06/04/19 04:00 40.0 60 06/04/19 02:55 95 20 99 High Flow 40.0 60 95 18 97 06/04/19 00:00 101 06/04/19 00:00 100.0 99 24 100/60 (73) 100 06/04/19 00:00 Nasal Cannula 40.0 06/03/19 22:48 99 20 100 High Flow 40.0 60 98 18 99 06/03/19 20:00 Nasal Cannula 40.0 06/03/19 20:00 40.0 60 06/03/19 20:00 100.1 93 26 147/72 (97) 95 06/03/19 19:34 111 06/03/19 19:32 97 High Flow 40.0 60 06/03/19 19:32 104 20 98 High Flow 40.0 60 108 20 97 Height (Feet): 5 Height (Inches): 1.00 Weight (Pounds): 104 General Appearance: other - no sob, nad HEENT: normocephalic, atraumatic, anicteric Respiratory/Chest: no accessory muscle use, crackles/rales, rhonchi - bilaterally Cardiovascular: normal rate, regular rhythm, no gallop/murmur, no JVD Abdomen: normal bowel sounds, soft, non tender, no organomegaly, non distended Genitourinary: other - + condom cath - urine clear Extremities: no cyanosis Skin: no rash Neurologic/Psychiatric: plycor operator II-XII grossly normal, other - weak, opens eyes Lymphatic: no neck adenopathy Musculoskeletal: no effusion Objective CT Chest - Impression: Moderate bilateral pleural effusions Bilateral lower lobe atelectasis, probably compressive in nature although there may be a component of endobronchial obstruction on the left Bilateral diffuse interstitial septal thickening. Most likely on the basis of pulmonary edema; other etiologies including inflammatory also possible. Posterior reticular opacities and nodular airspace opacities, could indicate active inflammatory changes or airspace edema Minimal pericardial thickening or fluid Mild diffuse esophageal wall thickening, could indicate esophagitis. Correlate with clinical findings Chest x-ray - 06/03/19 - Procedure: XRAY Chest 1v Indication: Shortness of breath Technique: One view of the chest Comparison: And 2018 Findings: Body habitus limits evaluation. There is diffuse bilateral interstitial and airspace disease, increased from the previous exam. There is persistent right greater than left pleural fluid Impression: Worsening of bilateral interstitial and airspace edema, since prior study of 2 days earlier Microbiology Date/Time Source Procedure Growth Status 05/29/19 18:40 Blood Blood Culture - Final NO GROWTH AFTER 5 DAYS Complete 06/01/19 14:00 Sputum Gram Stain - Final Complete 06/01/19 14:00 Sputum Sputum Culture - Final NORMAL UPPER RESPIRATORY SHOSHANA PRESENT Complete 05/29/19 21:00 Rectum - Final NO CARBAPENEM-RESISTANT ENTEROBACTERI... Complete Laboratory Tests Test 06/03/19 18:50 06/04/19 03:15 06/04/19 16:23 Vancomycin Level Trough 15.8 ug/mL (5.0-12.0) H White Blood Count 10.4 K/UL (4.8-10.8) Red Blood Count 2.96 M/UL (4.70-6.10) L Hemoglobin 9.9 G/DL (14.2-18.0) L Hematocrit 28.7 % (42.0-52.0) L Mean Corpuscular Volume 97 FL (80-99) Mean Corpuscular Hemoglobin 33.5 PG (27.0-31.0) H Mean Corpuscular Hemoglobin Concent 34.4 G/DL (32.0-36.0) Red Cell Distribution Width 11.7 % (11.6-14.8) Platelet Count 423 K/UL (150-450) Mean Platelet Volume 5.8 FL (6.5-10.1) L Neutrophils (%) (Auto) 72.8 % (45.0-75.0) Lymphocytes (%) (Auto) 17.0 % (20.0-45.0) L Monocytes (%) (Auto) 7.1 % (1.0-10.0) Eosinophils (%) (Auto) 1.9 % (0.0-3.0) Basophils (%) (Auto) 1.1 % (0.0-2.0) Sodium Level 137 MMOL/L (136-145) Potassium Level 3.4 MMOL/L (3.5-5.1) L Chloride Level 104 MMOL/L (98-107) Carbon Dioxide Level 27 MMOL/L (21-32) Anion Gap 6 mmol/L (5-15) Blood Urea Nitrogen 4 mg/dL (7-18) L Creatinine 0.7 MG/DL (0.55-1.30) Estimat Glomerular Filtration Rate > 60 mL/min (>60) Glucose Level 104 MG/DL (74-106) Calcium Level 8.3 MG/DL (8.5-10.1) L Arterial Blood pH 7.404 (7.350-7.450) Arterial Blood Partial Pressure CO2 44.3 mmHg (35.0-45.0) Arterial Blood Partial Pressure O2 67.9 mmHg (75.0-100.0) L Arterial Blood HCO3 27.1 mmol/L (22.0-26.0) H Arterial Blood Oxygen Saturation 93.1 % (95-100) L Arterial Blood Base Excess 2.0 (-2-2) Jonathan Test Positive Current Medications Medications (Trade) Dose Ordered Sig/Kendra Route PRN Reason Start Time Stop Time Status Last Admin Dose Admin Acetaminophen (Tylenol) 650 mg Q6H PRN RECTAL Mild Pain (Pain Scale 1-3) 05/31/19 01:15 06/30/19 01:14 05/31/19 21:17 Acetylcysteine (Mucomyst) 100 mg Q4HRT HHN 05/31/19 17:00 06/30/19 16:59 06/04/19 15:24 Albuterol/ Ipratropium (Albuterol/ Ipratropium) 3 ml Q4HRT N 05/31/19 17:00 06/05/19 16:59 06/04/19 15:24 Ascorbic Acid (Vitamin C) 500 mg DAILY ORAL 06/02/19 09:00 07/02/19 08:59 06/03/19 08:38 Bisacodyl (Dulcolax) 10 mg DAILYPRN PRN RECTAL constipation 05/31/19 10:45 06/29/19 10:44 Cyanocobalamin (Vitamin B-12 Tab) 100 mcg DAILY ORAL 05/31/19 09:00 06/30/19 08:59 06/03/19 08:38 Dextrose/ Electrolytes 1,000 ml @ 50 mls/hr Q20H IV 06/03/19 17:22 07/03/19 17:21 06/04/19 13:50 Docusate Sodium (Colace) 100 mg THREE TIMES A DAY ORAL 05/31/19 09:00 06/29/19 12:59 06/03/19 08:38 Famotidine (Pepcid I.v.) 20 mg Q12HR IVP 05/31/19 09:00 06/30/19 08:59 06/04/19 09:02 Ferrous Sulfate (Feosol) 325 mg DAILY ORAL 05/31/19 09:00 06/30/19 08:59 06/03/19 08:38 Heparin Sodium (Porcine) (Heparin 5000 units/ml) 5,000 units EVERY 12 HOURS SUBQ 05/31/19 09:00 06/29/19 08:59 06/04/19 09:06 Levothyroxine Sodium (Synthroid) 25 mcg DAILY IV 06/04/19 10:30 07/04/19 10:29 06/04/19 10:58 Lorazepam (Ativan 2mg/ml 1ml) 1 mg EVERY 6 HOURS PRN IV For Anxiety 05/31/19 06:00 06/05/19 23:14 Midodrine (Pro-Amatine) 5 mg TIDPRN PRN ORAL SBP<90 05/31/19 13:00 06/29/19 12:59 Multivitamins (Multivitamins) 1 tab DAILY ORAL 06/02/19 09:00 07/02/19 08:59 06/03/19 08:38 Piperacillin Sod/ Tazobactam Sod 3.375 gm/Dextrose 110 ml @ 27.5 mls/hr Q8HR IVPB 05/31/19 06:00 06/06/19 13:59 06/04/19 15:33 Vancomycin HCl (Vanco rx to dose) 1 ea DAILY PRN MISC Per rx protocol 05/31/19 09:00 06/28/19 23:14 Vancomycin HCl 1 gm/Sodium Chloride 275 ml @ 183.708 mls/hr Q12H IVPB 06/02/19 20:00 06/07/19 07:59 06/04/19 09:02 Zinc Sulfate (Zinc Sulfate) 220 mg DAILY ORAL 06/02/19 09:00 06/12/19 08:59 06/03/19 08:38 Rafia Rand MD Jun 04, 2019 17:26
--- NOTE | 2019-06-04 18:30 | Diagnostic Imaging Report ---
Indication: Nasogastric intubation Technique: XRAY Abdomen 1v Comparison: None Findings: Single portable frontal view the abdomen was obtained. This demonstrates a nasogastric tube with the tip projecting in the region of the body the stomach. There is bilateral airspace disease as well as a small right pleural effusion. IMPRESSION: Satisfactory nasogastric intubation, with the tip in the region of the gastric body. This corresponds with the statrad preliminary report.
[2019-06-04 20:00] VITALS: BP 146/63
[2019-06-05] VITALS: BP 151/60
[2019-06-05] MEDS: Albuterol/Ipratropium 3ml neb HHN SCH ×6 (03:50→23:26)
[2019-06-05 04:00] VITALS: BP 153/71
[2019-06-05] MEDS: Piperacillin/Tazobactam 3.375 GM in D5W 110 ML IVPB SCH ×3 (05:12→21:52)
[2019-06-05 05:21] LABS: EOSINOPHILS % (AUTO) 2.9 % (0.0-3.0); HEMATOCRIT 32.3 % (42.0-52.0); LYMPHOCYTES % (AUTO) 12.9 % (20.0-45.0); MEAN CORPUSCULAR VOLUME 98 FL (80-99); MONOCYTES % (AUTO) 6.5 % (1.0-10.0); NEUTROPHILS % (AUTO) 76.8 % (45.0-75.0); PLATELET COUNT 458 K/UL (150-450); RED BLOOD COUNT 3.29 M/UL (4.70-6.10); RED CELL DISTRIBUTION WIDTH 11.9 % (11.6-14.8)
[2019-06-05 05:39] LABS: ALANINE AMINOTRANSFERASE 67 U/L (12-78); ALBUMIN 1.8 G/DL (3.4-5.0); ALBUMIN/GLOBULIN RATIO 0.4 (1.0-2.7); ALKALINE PHOSPHATASE 49 U/L (46-116); ANION GAP 6 mmol/L (5-15); ASPARTATE AMINO TRANSFERASE 38 U/L (15-37); BILIRUBIN,TOTAL 0.3 MG/DL (0.2-1.0); BLOOD UREA NITROGEN 4 mg/dL (7-18); CALCIUM 8.6 MG/DL (8.5-10.1); CARBON DIOXIDE 29 MMOL/L (21-32); CHLORIDE 105 MMOL/L (98-107); CREATININE 0.8 MG/DL (0.55-1.30); POTASSIUM 3.4 MMOL/L (3.5-5.1); SODIUM 140 MMOL/L (136-145)
[2019-06-05 08:00] VITALS: BP 89/53
[2019-06-05] MEDS: Vancomycin 1 GM in NS 275 ML IVPB SCH ×2 (08:27→20:12)
[2019-06-05] MEDS: Docusate 100mg/10ml Liq NG SCH ×3 (08:28→20:17)
[2019-06-05] MEDS: Zinc Sulfate 220mg cap NG SCH (08:28)
[2019-06-05] MEDS: Vitamin B-12 100mcg tab NG SCH (08:28)
[2019-06-05] MEDS: Ascorbic Acid 500mg tab ORAL SCH (08:29)
[2019-06-05] MEDS: Ferrous Sulfate 300 MG/5 ML UDC NG SCH (08:31)
[2019-06-05] MEDS: Heparin 5000 units/ml inj SUBQ SCH ×2 (08:35→20:18)
[2019-06-05] MEDS: D5 1/2NS w/KCl 20mEq 1,000 ML IV SCH (08:43)
[2019-06-05 12:00] VITALS: BP 90/45
--- NOTE | 2019-06-05 14:24 | Pulmonology Progress Note ---
Assessment/Plan Problems: (1) Pneumonia (2) Acute and chronic respiratory failure with hypoxia (3) Severe sepsis (4) Fever (5) Down's syndrome (6) Tachycardia (7) Hypothyroid (8) HLD (hyperlipidemia) (9) HTN (hypertension) (10) GERD (gastroesophageal reflux disease) (11) Iron deficiency anemia (12) CHF (congestive heart failure) Assessment/Plan Problem List: 1. HCAP/BLL PNA, likely aspiration 2. Hypercapnic hypoxemic respiratory failure. 3. Down syndrome. 4. Small/mod b effusions 5. HTN & Hyperlipidemia 6. Gastroesophageal reflux disease. 7. Decubitus ulcers. Plan: -Replace NGT/confirm placement ---> NGTF's only when stable off BiPAP -BiPAP 12/5 qhs and prn - ENCOURAGE NOCTURNAL USAGE -Titrate high flow nasal cannula -cont abx per ID -monitor effusions -LEAN SIX SIGMA BLACK BELT recs, VSS, GT not within GOC -DNAR/DNI Case d/w RN Subjective Allergies: Coded Allergies: KETAMINE (Verified Allergy, Unknown, 05/29/19) NSAIDS (NON-STEROIDAL ANTI-INFLAMMA (Verified Allergy, Unknown, 05/29/19) Subjective AF on HFO2 40% VSS - did not use BiPAP NGT out More interactive today + cough + SOB no FC Objective Last 24 Hour Vital Signs Date Time Temp Pulse Resp B/P (MAP) Pulse Ox O2 Delivery O2 Flow Rate FiO2 06/05/19 12:00 104 06/05/19 12:00 Nasal Cannula 40.0 06/05/19 12:00 97.8 91 20 90/45 (60) 95 06/05/19 10:58 84 26 92 High Flow 40.0 60 96 24 93 06/05/19 10:57 92 High Flow 40.0 60 06/05/19 09:07 40.0 60 06/05/19 08:00 86 06/05/19 08:00 40 06/05/19 08:00 Nasal Cannula 40.0 06/05/19 08:00 99.0 107 28 89/53 (65) 94 06/05/19 07:32 96 Bi-Pap 60 06/05/19 07:26 105 29 94 Full Face 100 06/05/19 07:05 111 27 76 High Flow 40.0 60 101 28 84 06/05/19 04:00 98.0 100 24 153/71 (98) 97 06/05/19 04:00 Nasal Cannula 40.0 06/05/19 04:00 40.0 40 06/05/19 03:51 86 20 100 High Flow 40.0 60 87 20 100 06/05/19 03:44 75 06/05/19 00:02 101 06/05/19 00:00 Nasal Cannula 40.0 06/05/19 00:00 98.4 93 28 151/60 (90) 97 06/04/19 23:28 84 20 100 High Flow 40.0 60 82 20 99 06/04/19 20:00 98.9 81 24 146/63 (90) 100 06/04/19 20:00 40.0 40 06/04/19 20:00 Nasal Cannula 40.0 06/04/19 19:24 67 06/04/19 19:04 87 20 98 High Flow 40.0 60 84 20 94 06/04/19 19:03 98 High Flow 40.0 60 06/04/19 17:32 71 06/04/19 16:00 Nasal Cannula 40.0 06/04/19 16:00 98.2 77 26 138/56 (83) 95 06/04/19 16:00 40.0 40 06/04/19 15:25 99 22 100 High Flow 40.0 60 93 22 96 06/04/19 15:00 93 High Flow 40.0 60 Intake and Output 06/04/19 06/05/19 18:59 06:59 Intake Total 985.417 ml 1227.08 ml Output Total 2000 ml 1200 ml Balance -1014.583 ml 27.08 ml Intake Oral 0 ml Free Water 30 ml IV Total 985.417 ml 1007.08 ml Tube Feeding 190 ml Output Urine Total 2000 ml 1200 ml # Voids 5 # Bowel Movements 7 2 General Appearance: no acute distress, cachetic HEENT: normocephalic, atraumatic, anicteric, mucous membranes moist, other - NGT out Respiratory/Chest: rhonchi Cardiovascular: normal peripheral pulses, normal rate, regular rhythm Abdomen: normal bowel sounds, soft, non tender, no organomegaly, non distended , no mass Extremities: no cyanosis, no clubbing, no edema Laboratory Tests 06/04/19 16:23: Arterial Blood pH 7.404, Arterial Blood Partial Pressure CO2 44.3, Arterial Blood Partial Pressure O2 67.9L, Arterial Blood HCO3 27.1H, Arterial Blood Oxygen Saturation 93.1L, Arterial Blood Base Excess 2.0, Jonathan Test Positive 06/05/19 03:10: White Blood Count 10.0, Red Blood Count 3.29L, Hemoglobin 11.0L, Hematocrit 32.3L, Mean Corpuscular Volume 98, Mean Corpuscular Hemoglobin 33.3H, Mean Corpuscular Hemoglobin Concent 34.0, Red Cell Distribution Width 11.9, Platelet Count 458H, Mean Platelet Volume 6.1L, Neutrophils (%) (Auto) 76.8H, Lymphocytes (%) (Auto) 12.9L, Monocytes (%) (Auto) 6.5, Eosinophils (%) (Auto) 2.9, Basophils (%) (Auto) 1.0, Sodium Level 140, Potassium Level 3.4L, Chloride Level 105, Carbon Dioxide Level 29, Anion Gap 6, Blood Urea Nitrogen 4L, Creatinine 0.8, Estimat Glomerular Filtration Rate > 60, Glucose Level 102, Calcium Level 8.6, Total Bilirubin 0.3, Aspartate Amino Transf (AST/SGOT) 38H, Alanine Aminotransferase (ALT/SGPT) 67, Alkaline Phosphatase 49, Pro-B-Type Natriuretic Peptide 1592H, Total Protein 6.4, Albumin 1.8L, Globulin 4.6, Albumin/Globulin Ratio 0.4L Current Medications Medications (Trade) Dose Ordered Sig/Kendra Route PRN Reason Start Time Stop Time Status Last Admin Dose Admin Acetaminophen (Tylenol) 650 mg Q6H PRN RECTAL Mild Pain (Pain Scale 1-3) 05/31/19 01:15 06/30/19 01:14 05/31/19 21:17 Acetylcysteine (Mucomyst) 100 mg Q4HRT [facility] 05/31/19 17:00 06/30/19 16:59 06/05/19 10:57 Albuterol/ Ipratropium (Albuterol/ Ipratropium) 3 ml Q4HRT [facility] 05/31/19 17:00 06/05/19 16:59 06/05/19 10:57 Ascorbic Acid (Vitamin C) 500 mg DAILY 06/06/19 09:00 07/02/19 08:59 Bisacodyl (Dulcolax) 10 mg DAILYPRN PRN RECTAL constipation 05/31/19 10:45 06/29/19 10:44 Cyanocobalamin (Vitamin B-12 Tab) 100 mcg DAILY NG 06/05/19 09:00 06/30/19 08:59 06/05/19 08:28 Docusate Sodium (Colace) 100 mg EVERY 12 HOURS NG 06/05/19 21:00 07/05/19 20:59 Famotidine (Pepcid I.v.) 20 mg Q12HR IVP 05/31/19 09:00 06/30/19 08:59 06/05/19 08:29 Ferrous Sulfate (Feosol) 325 mg DAILY NG 06/05/19 09:00 07/05/19 08:59 06/05/19 08:31 Heparin Sodium (Porcine) (Heparin 5000 units/ml) 5,000 units EVERY 12 HOURS SUBQ 05/31/19 09:00 06/29/19 08:59 06/05/19 08:35 Levothyroxine Sodium (Synthroid) 25 mcg DAILY IV 06/04/19 10:30 07/04/19 10:29 06/05/19 08:30 Lorazepam (Ativan 2mg/ml 1ml) 1 mg EVERY 6 HOURS PRN IV For Anxiety 05/31/19 06:00 06/05/19 23:14 Midodrine (Pro-Amatine) 5 mg TIDPRN PRN NG SBP<90 06/05/19 15:00 06/29/19 12:59 Multivitamins (Multivitamins) 1 tab DAILY NG 06/05/19 09:00 07/02/19 08:59 06/05/19 08:28 Piperacillin Sod/ Tazobactam Sod 3.375 gm/Dextrose 110 ml @ 27.5 mls/hr Q8HR IVPB 06/04/19 22:00 06/11/19 05:59 06/05/19 13:35 Vancomycin HCl (Vanco rx to dose) 1 ea DAILY PRN MISC Per rx protocol 05/31/19 09:00 06/28/19 23:14 Vancomycin HCl 1 gm/Sodium Chloride 275 ml @ 183.708 mls/hr Q12H IVPB 06/02/19 20:00 06/07/19 07:59 06/05/19 08:27 Zinc Sulfate (Zinc Sulfate) 220 mg DAILY NG 06/05/19 09:00 06/15/19 08:59 06/05/19 08:28 Yovani Luevano MD Jun 05, 2019 14:24
[2019-06-05 16:00] VITALS: BP 102/62
--- NOTE | 2019-06-05 16:46 | Cardiac Electrophysiology PN ---
Subjective Subjective [id number] Objective Last 24 Hour Vital Signs Date Time Temp Pulse Resp B/P (MAP) Pulse Ox O2 Delivery O2 Flow Rate FiO2 06/05/19 16:00 97.8 107 20 102/62 (75) 93 06/05/19 16:00 Nasal Cannula 40.0 06/05/19 16:00 40.0 60 06/05/19 16:00 110 06/05/19 15:18 111 24 92 High Flow 40.0 60 110 24 92 06/05/19 12:00 104 06/05/19 12:00 Nasal Cannula 40.0 06/05/19 12:00 97.8 91 20 90/45 (60) 95 06/05/19 10:58 84 26 92 High Flow 40.0 60 96 24 93 06/05/19 10:57 92 High Flow 40.0 60 06/05/19 09:07 40.0 60 06/05/19 08:00 86 06/05/19 08:00 40 06/05/19 08:00 Nasal Cannula 40.0 06/05/19 08:00 99.0 107 28 89/53 (65) 94 06/05/19 07:32 96 Bi-Pap 60 06/05/19 07:26 105 29 94 Full Face 100 06/05/19 07:05 111 27 76 High Flow 40.0 60 101 28 84 06/05/19 04:00 98.0 100 24 153/71 (98) 97 06/05/19 04:00 Nasal Cannula 40.0 06/05/19 04:00 40.0 40 06/05/19 03:51 86 20 100 High Flow 40.0 60 87 20 100 06/05/19 03:44 75 06/05/19 00:02 101 06/05/19 00:00 Nasal Cannula 40.0 06/05/19 00:00 98.4 93 28 151/60 (90) 97 06/04/19 23:28 84 20 100 High Flow 40.0 60 82 20 99 06/04/19 20:00 98.9 81 24 146/63 (90) 100 06/04/19 20:00 40.0 40 06/04/19 20:00 Nasal Cannula 40.0 06/04/19 19:24 67 06/04/19 19:04 87 20 98 High Flow 40.0 60 84 20 94 06/04/19 19:03 98 High Flow 40.0 60 06/04/19 17:32 71 Intake and Output 06/04/19 06/05/19 18:59 06:59 Intake Total 985.417 ml 1227.08 ml Output Total 2000 ml 1200 ml Balance -1014.583 ml 27.08 ml Intake Oral 0 ml Free Water 30 ml IV Total 985.417 ml 1007.08 ml Tube Feeding 190 ml Output Urine Total 2000 ml 1200 ml # Voids 5 # Bowel Movements 7 2 Laboratory Tests Test 06/05/19 03:10 White Blood Count 10.0 K/UL (4.8-10.8) Red Blood Count 3.29 M/UL (4.70-6.10) L Hemoglobin 11.0 G/DL (14.2-18.0) L Hematocrit 32.3 % (42.0-52.0) L Mean Corpuscular Volume 98 FL (80-99) Mean Corpuscular Hemoglobin 33.3 PG (27.0-31.0) H Mean Corpuscular Hemoglobin Concent 34.0 G/DL (32.0-36.0) Red Cell Distribution Width 11.9 % (11.6-14.8) Platelet Count 458 K/UL (150-450) H Mean Platelet Volume 6.1 FL (6.5-10.1) L Neutrophils (%) (Auto) 76.8 % (45.0-75.0) H Lymphocytes (%) (Auto) 12.9 % (20.0-45.0) L Monocytes (%) (Auto) 6.5 % (1.0-10.0) Eosinophils (%) (Auto) 2.9 % (0.0-3.0) Basophils (%) (Auto) 1.0 % (0.0-2.0) Sodium Level 140 MMOL/L (136-145) Potassium Level 3.4 MMOL/L (3.5-5.1) L Chloride Level 105 MMOL/L (98-107) Carbon Dioxide Level 29 MMOL/L (21-32) Anion Gap 6 mmol/L (5-15) Blood Urea Nitrogen 4 mg/dL (7-18) L Creatinine 0.8 MG/DL (0.55-1.30) Estimat Glomerular Filtration Rate > 60 mL/min (>60) Glucose Level 102 MG/DL (74-106) Calcium Level 8.6 MG/DL (8.5-10.1) Total Bilirubin 0.3 MG/DL (0.2-1.0) Aspartate Amino Transf (AST/SGOT) 38 U/L (15-37) H Alanine Aminotransferase (ALT/SGPT) 67 U/L (12-78) Alkaline Phosphatase 49 U/L (46-116) Pro-B-Type Natriuretic Peptide 1592 pg/mL (0-125) H Total Protein 6.4 G/DL (6.4-8.2) Albumin 1.8 G/DL (3.4-5.0) L Globulin 4.6 g/dL Albumin/Globulin Ratio 0.4 (1.0-2.7) L Valerio Owen MD Jun 05, 2019 16:46
--- NOTE | 2019-06-05 17:08 | Surgery Progress Note ---
Surgery Progress Note Subjective Additional Comments pulling out lines and now with hand wrap requiring O2 supplemental prognosis guarded Objective Last 24 Hour Vital Signs Date Time Temp Pulse Resp B/P (MAP) Pulse Ox O2 Delivery O2 Flow Rate FiO2 06/05/19 16:00 97.8 107 20 102/62 (75) 93 06/05/19 16:00 Nasal Cannula 40.0 06/05/19 16:00 40.0 60 06/05/19 16:00 110 06/05/19 15:18 111 24 92 High Flow 40.0 60 110 24 92 06/05/19 12:00 104 06/05/19 12:00 Nasal Cannula 40.0 06/05/19 12:00 97.8 91 20 90/45 (60) 95 06/05/19 10:58 84 26 92 High Flow 40.0 60 96 24 93 06/05/19 10:57 92 High Flow 40.0 60 06/05/19 09:07 40.0 60 06/05/19 08:00 86 06/05/19 08:00 40 06/05/19 08:00 Nasal Cannula 40.0 06/05/19 08:00 99.0 107 28 89/53 (65) 94 06/05/19 07:32 96 Bi-Pap 60 06/05/19 07:26 105 29 94 Full Face 100 06/05/19 07:05 111 27 76 High Flow 40.0 60 101 28 84 06/05/19 04:00 98.0 100 24 153/71 (98) 97 06/05/19 04:00 Nasal Cannula 40.0 06/05/19 04:00 40.0 40 06/05/19 03:51 86 20 100 High Flow 40.0 60 87 20 100 06/05/19 03:44 75 06/05/19 00:02 101 06/05/19 00:00 Nasal Cannula 40.0 06/05/19 00:00 98.4 93 28 151/60 (90) 97 06/04/19 23:28 84 20 100 High Flow 40.0 60 82 20 99 06/04/19 20:00 98.9 81 24 146/63 (90) 100 06/04/19 20:00 40.0 40 06/04/19 20:00 Nasal Cannula 40.0 06/04/19 19:24 67 06/04/19 19:04 87 20 98 High Flow 40.0 60 84 20 94 06/04/19 19:03 98 High Flow 40.0 60 06/04/19 17:32 71 I&O Intake and Output 06/04/19 06/05/19 18:59 06:59 Intake Total 985.417 ml 1227.08 ml Output Total 2000 ml 1200 ml Balance -1014.583 ml 27.08 ml Intake Oral 0 ml Free Water 30 ml IV Total 985.417 ml 1007.08 ml Tube Feeding 190 ml Output Urine Total 2000 ml 1200 ml # Voids 5 # Bowel Movements 7 2 Cardiovascular: RSR Respiratory: decreased breath sounds Abdomen: soft, non-tender, present bowel sounds Extremities: no tenderness, no cyanosis Laboratory Tests Test 06/05/19 03:10 White Blood Count 10.0 K/UL (4.8-10.8) Red Blood Count 3.29 M/UL (4.70-6.10) L Hemoglobin 11.0 G/DL (14.2-18.0) L Hematocrit 32.3 % (42.0-52.0) L Mean Corpuscular Volume 98 FL (80-99) Mean Corpuscular Hemoglobin 33.3 PG (27.0-31.0) H Mean Corpuscular Hemoglobin Concent 34.0 G/DL (32.0-36.0) Red Cell Distribution Width 11.9 % (11.6-14.8) Platelet Count 458 K/UL (150-450) H Mean Platelet Volume 6.1 FL (6.5-10.1) L Neutrophils (%) (Auto) 76.8 % (45.0-75.0) H Lymphocytes (%) (Auto) 12.9 % (20.0-45.0) L Monocytes (%) (Auto) 6.5 % (1.0-10.0) Eosinophils (%) (Auto) 2.9 % (0.0-3.0) Basophils (%) (Auto) 1.0 % (0.0-2.0) Sodium Level 140 MMOL/L (136-145) Potassium Level 3.4 MMOL/L (3.5-5.1) L Chloride Level 105 MMOL/L (98-107) Carbon Dioxide Level 29 MMOL/L (21-32) Anion Gap 6 mmol/L (5-15) Blood Urea Nitrogen 4 mg/dL (7-18) L Creatinine 0.8 MG/DL (0.55-1.30) Estimat Glomerular Filtration Rate > 60 mL/min (>60) Glucose Level 102 MG/DL (74-106) Calcium Level 8.6 MG/DL (8.5-10.1) Total Bilirubin 0.3 MG/DL (0.2-1.0) Aspartate Amino Transf (AST/SGOT) 38 U/L (15-37) H Alanine Aminotransferase (ALT/SGPT) 67 U/L (12-78) Alkaline Phosphatase 49 U/L (46-116) Pro-B-Type Natriuretic Peptide 1592 pg/mL (0-125) H Total Protein 6.4 G/DL (6.4-8.2) Albumin 1.8 G/DL (3.4-5.0) L Globulin 4.6 g/dL Albumin/Globulin Ratio 0.4 (1.0-2.7) L Plan Problems: (1) Ulcer of right heel Assessment & Plan: This is a 54-year-old male with multiple medical comorbidities who is currently presented for fever and tachycardia. Patient identified to have abnormal decubitus pressure ulcer on right heel. On examination patient has a stage III full-thickness right heel decubitus ulcer periwound intact but mildly macerated. Surrounding erythema. No drainage. No underlying abscess. No bone palpable. No foul odor. Labs noted and identified. No signs of acute active inflammatory or infectious process from this. Patient does have a leukocytosis that significant. Will continue work-up for etiology Will recommend local wound care. Apply Thera honey followed by up to foam dressing daily. We will monitor. Thank you for this consultation we will follow with recommendations (2) Fever Assessment & Plan: Low-grade fevers, tachycardia, leukocytosis, abnormal labs Head to toe skin integrity and wound eval completed as above UA noted chest x-ray noted Possible aspiration pneumonia Continue antibiotics as per infectious disease IV fluids Patient not eating well and currently DNR/DNI and does not have feeding tube. 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 * Increased kcal/prot needs R/T wound healing and wasting as evidenced by pt admitted w/ stage 3 rt heel wound, w/ mild-moderate generalized wasting. CURRENT DIET:NPO PO DIET RECOMMENDATIONS: IF SAFE FOR PO -> liberalized REGULAR/ texture per BIOMATERIALS ENGINEER + Ensure Enlive TID ENTERAL NUTRITION RECOMMENDATIONS: CONSULT RD IF TF PART OF POC AND INDICATED: PER POLST, NO TF AT THIS TIME ADDITIONAL RECOMMENDATIONS: * Calibrated bedscale wt - bedscale wt per RD= 101lbs vs EMR dm=[id number] * Monitor NPO status, ability to feed - BIOMATERIALS ENGINEER eval pending, pt on BIPAP, altered. TF indicates no TF at this time * Monitor lytes, replete as needed * Wound healing: once able to feed-> add MVI w/ min x 1, Vit C 500mg QD -> add ZnSO4 220mg QD x 10 days -> Jeremy 1pkt BID as tolerated Alexis Ruffin Jun 05, 2019 17:08
--- NOTE | 2019-06-05 17:53 | Infectious Diseases Prog Note ---
Assessment/Plan Assessment/Plan ASSESSMENT AND PLAN: 1. aspiration pna/HCAP, sepsis, leukocytosis, fevers, sirs, sob - vancomycin and zosyn - day # 6 antibiotic combination - sputum culture with normal shoshana but patient on abx prior to sputum culture - monitor labs and chest x-ray - monitor clinically, less sob, sepsis improved - length of abx tx will be determined by clinical response, will need at least 7 days abx 2. Hypoxic. Continue treatment per Pulmonary Medicine. The patient is on a breathing mask. 3. Right heel wound was noted. He has been seen by Surgery. Upon reviewing the Surgery note, it does not seem to be acutely infected. Continue wound care per Surgery. 4. The patient has history of Down syndrome. 5. Nonverbal. 6. Hypothyroidism. Continue thyroid supplementation. 7. Hypertension. Continue blood pressure treatment per primary care team. 8. Congestive heart failure. 9. Hyperlipidemia. 10. Anemia. 11. Gastroesophageal reflux disease. 12. . 13. Hypoxia. 14. Breathing mask. 15. Wound care protocol. Continue wound treatment per protocol. 16. Allergies to ketamine and NSAIDs. 17. Social history is negative. 18. Family history is noncontributory. 19. MAR is noted. 20. Case was discussed with RN. 21. Case was discussed with Dr. Durán. 22. mrsa and vre colonization Subjective Constitutional: Reports: fatigue, other - more alert, non-verbal ; Denies: fever HEENT: Reports: congestion - less Respiratory: Reports: shortness of breath - less Cardiovascular: Denies: chest pain Gastrointestinal/Abdominal: Denies: nausea, vomiting, diarrhea Genitourinary: Reports: other - + condom catheter Neurologic: Denies: headache Psychiatric: Denies: depression Skin: Denies: rash Hematologic: Denies: bleeding Musculoskeletal: Denies: pain Allergies: Coded Allergies: KETAMINE (Verified Allergy, Unknown, 05/29/19) NSAIDS (NON-STEROIDAL ANTI-INFLAMMA (Verified Allergy, Unknown, 05/29/19) Objective Vital Signs Last 24 Hour Vital Signs Date Time Temp Pulse Resp B/P (MAP) Pulse Ox O2 Delivery O2 Flow Rate FiO2 06/05/19 16:00 97.8 107 20 102/62 (75) 93 06/05/19 16:00 Nasal Cannula 40.0 06/05/19 16:00 40.0 60 06/05/19 16:00 110 06/05/19 15:18 111 24 92 High Flow 40.0 60 110 24 92 06/05/19 12:00 104 06/05/19 12:00 Nasal Cannula 40.0 06/05/19 12:00 97.8 91 20 90/45 (60) 95 06/05/19 10:58 84 26 92 High Flow 40.0 60 96 24 93 06/05/19 10:57 92 High Flow 40.0 60 06/05/19 09:07 40.0 60 06/05/19 08:00 86 06/05/19 08:00 40 06/05/19 08:00 Nasal Cannula 40.0 06/05/19 08:00 99.0 107 28 89/53 (65) 94 06/05/19 07:32 96 Bi-Pap 60 06/05/19 07:26 105 29 94 Full Face 100 06/05/19 07:05 111 27 76 High Flow 40.0 60 101 28 84 06/05/19 04:00 98.0 100 24 153/71 (98) 97 06/05/19 04:00 Nasal Cannula 40.0 06/05/19 04:00 40.0 40 06/05/19 03:51 86 20 100 High Flow 40.0 60 87 20 100 06/05/19 03:44 75 06/05/19 00:02 101 06/05/19 00:00 Nasal Cannula 40.0 06/05/19 00:00 98.4 93 28 151/60 (90) 97 06/04/19 23:28 84 20 100 High Flow 40.0 60 82 20 99 06/04/19 20:00 98.9 81 24 146/63 (90) 100 06/04/19 20:00 40.0 40 06/04/19 20:00 Nasal Cannula 40.0 06/04/19 19:24 67 06/04/19 19:04 87 20 98 High Flow 40.0 60 84 20 94 06/04/19 19:03 98 High Flow 40.0 60 Height (Feet): 5 Height (Inches): 1.00 Weight (Pounds): 104 General Appearance: no acute distress HEENT: normocephalic, anicteric, mucous membranes moist Respiratory/Chest: no accessory muscle use, crackles/rales, rhonchi - bilaterally Cardiovascular: normal rate, regular rhythm, no gallop/murmur, no JVD Abdomen: normal bowel sounds, soft, non tender, no organomegaly, non distended Genitourinary: other - + condom catheter - urine slt cloudy Extremities: no cyanosis Skin: no rash 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 Most likely on the basis of pulmonary edema; other etiologies including inflammatory also possible. Posterior reticular opacities and nodular airspace opacities, could indicate active inflammatory changes or airspace edema Minimal pericardial thickening or fluid Mild diffuse esophageal wall thickening, could indicate esophagitis. Correlate with clinical findings Chest x-ray - 06/03/19 - Procedure: XRAY Chest 1v Indication: Shortness of breath Technique: One view of the chest Comparison: 2018 Findings: Body habitus limits evaluation. There is diffuse bilateral interstitial and airspace disease, increased from the previous exam. There is persistent right greater than left pleural fluid Impression: Worsening of bilateral interstitial and airspace edema, since prior study of 2 days earlier Microbiology Date/Time Source Procedure Growth Status 05/29/19 18:40 Blood Blood Culture - Final NO GROWTH AFTER 5 DAYS Complete 06/01/19 14:00 Sputum Gram Stain - Final Complete 06/01/19 14:00 Sputum Sputum Culture - Final NORMAL UPPER RESPIRATORY SHOSHANA PRESENT Complete 05/29/19 21:00 Rectum - Final NO CARBAPENEM-RESISTANT ENTEROBACTERI... Complete Laboratory Tests Test 06/05/19 03:10 White Blood Count 10.0 K/UL (4.8-10.8) Red Blood Count 3.29 M/UL (4.70-6.10) L Hemoglobin 11.0 G/DL (14.2-18.0) L Hematocrit 32.3 % (42.0-52.0) L Mean Corpuscular Volume 98 FL (80-99) Mean Corpuscular Hemoglobin 33.3 PG (27.0-31.0) H Mean Corpuscular Hemoglobin Concent 34.0 G/DL (32.0-36.0) Red Cell Distribution Width 11.9 % (11.6-14.8) Platelet Count 458 K/UL (150-450) H Mean Platelet Volume 6.1 FL (6.5-10.1) L Neutrophils (%) (Auto) 76.8 % (45.0-75.0) H Lymphocytes (%) (Auto) 12.9 % (20.0-45.0) L Monocytes (%) (Auto) 6.5 % (1.0-10.0) Eosinophils (%) (Auto) 2.9 % (0.0-3.0) Basophils (%) (Auto) 1.0 % (0.0-2.0) Sodium Level 140 MMOL/L (136-145) Potassium Level 3.4 MMOL/L (3.5-5.1) L Chloride Level 105 MMOL/L (98-107) Carbon Dioxide Level 29 MMOL/L (21-32) Anion Gap 6 mmol/L (5-15) Blood Urea Nitrogen 4 mg/dL (7-18) L Creatinine 0.8 MG/DL (0.55-1.30) Estimat Glomerular Filtration Rate > 60 mL/min (>60) Glucose Level 102 MG/DL (74-106) Calcium Level 8.6 MG/DL (8.5-10.1) Total Bilirubin 0.3 MG/DL (0.2-1.0) Aspartate Amino Transf (AST/SGOT) 38 U/L (15-37) H Alanine Aminotransferase (ALT/SGPT) 67 U/L (12-78) Alkaline Phosphatase 49 U/L (46-116) Pro-B-Type Natriuretic Peptide 1592 pg/mL (0-125) H Total Protein 6.4 G/DL (6.4-8.2) Albumin 1.8 G/DL (3.4-5.0) L Globulin 4.6 g/dL Albumin/Globulin Ratio 0.4 (1.0-2.7) L Current Medications Medications (Trade) Dose Ordered Sig/Kendra Route PRN Reason Start Time Stop Time Status Last Admin Dose Admin Acetaminophen (Tylenol) 650 mg Q6H PRN RECTAL Mild Pain (Pain Scale 1-3) 05/31/19 01:15 06/30/19 01:14 05/31/19 21:17 Acetylcysteine (Mucomyst) 100 mg Q4HRT HHN 05/31/19 17:00 06/30/19 16:59 06/05/19 15:18 Albuterol/ Ipratropium (Albuterol/ Ipratropium) 3 ml Q4HRT HHN 06/05/19 19:00 06/12/19 18:59 Ascorbic Acid (Vitamin C) 500 mg DAILY NG 06/06/19 09:00 07/02/19 08:59 Bisacodyl (Dulcolax) 10 mg DAILYPRN PRN RECTAL constipation 05/31/19 10:45 06/29/19 10:44 Cyanocobalamin (Vitamin B-12 Tab) 100 mcg DAILY NG 06/05/19 09:00 06/30/19 08:59 06/05/19 08:28 Docusate Sodium (Colace) 100 mg EVERY 12 HOURS NG 06/05/19 21:00 07/05/19 20:59 Famotidine (Pepcid I.v.) 20 mg Q12HR IVP 05/31/19 09:00 06/30/19 08:59 06/05/19 08:29 Ferrous Sulfate (Feosol) 325 mg DAILY NG 06/05/19 09:00 07/05/19 08:59 06/05/19 08:31 Heparin Sodium (Porcine) (Heparin 5000 units/ml) 5,000 units EVERY 12 HOURS SUBQ 05/31/19 09:00 06/29/19 08:59 06/05/19 08:35 Levothyroxine Sodium (Synthroid) 25 mcg DAILY IV 06/04/19 10:30 07/04/19 10:29 06/05/19 08:30 Lorazepam (Ativan 2mg/ml 1ml) 1 mg EVERY 6 HOURS PRN IV For Anxiety 05/31/19 06:00 06/05/19 23:14 Midodrine (Pro-Amatine) 5 mg TIDPRN PRN NG SBP<90 06/05/19 15:00 06/29/19 12:59 Multivitamins (Multivitamins) 1 tab DAILY NG 06/05/19 09:00 07/02/19 08:59 06/05/19 08:28 Piperacillin Sod/ Tazobactam Sod 3.375 gm/Dextrose 110 ml @ 27.5 mls/hr Q8HR IVPB 06/04/19 22:00 06/11/19 05:59 06/05/19 13:35 Vancomycin HCl (Vanco rx to dose) 1 ea DAILY PRN MISC Per rx protocol 05/31/19 09:00 06/28/19 23:14 Vancomycin HCl 1 gm/Sodium Chloride 275 ml @ 183.708 mls/hr Q12H IVPB 06/02/19 20:00 06/07/19 07:59 06/05/19 08:27 Zinc Sulfate (Zinc Sulfate) 220 mg DAILY NG 06/05/19 09:00 06/15/19 08:59 06/05/19 08:28 Rafia Rand MD Jun 05, 2019 17:53
--- NOTE | 2019-06-05 18:02 | General Progress Note ---
Assessment/Plan Problem List: (1) Severe sepsis ICD Codes: A41.9 - Sepsis, unspecified organism; R65.20 - Severe sepsis without septic shock SNOMED: 15002621 (2) Acute on chronic respiratory failure with hypoxia and hypercapnia ICD Codes: J96.21 - Acute and chronic respiratory failure with hypoxia; J96.22 - Acute and chronic respiratory failure with hypercapnia SNOMED: 96864267688476 (3) Tachycardia ICD Codes: R00.0 - Tachycardia, unspecified SNOMED: 1540362 (4) Fever ICD Codes: R50.9 - Fever, unspecified SNOMED: 916978687 (5) CHF (congestive heart failure) ICD Codes: I50.9 - Heart failure, unspecified SNOMED: 92565826 (6) Iron deficiency anemia ICD Codes: D50.9 - Iron deficiency anemia, unspecified SNOMED: 58348033 (7) GERD (gastroesophageal reflux disease) ICD Codes: K21.9 - Gastro-esophageal reflux disease without esophagitis SNOMED: 834687329 (8) HTN (hypertension) ICD Codes: I10 - Essential (primary) hypertension SNOMED: 76221588 (9) Hypothyroid ICD Codes: E03.9 - Hypothyroidism, unspecified SNOMED: 49345221 (10) Pneumonia ICD Codes: J18.9 - Pneumonia, unspecified organism SNOMED: 786706708 (11) Ulcer of right heel ICD Codes: L97.419 - Non-pressure chronic ulcer of right heel and midfoot with unspecified severity SNOMED: 537924452 Status: deteriorating, fever Assessment/Plan: Dwayne Gibson is a 54 yo man with PMH of Down's syndrome (nonverbal and bedbound at baseline), CHF (unknown EF), HTN, HLD, iron deficiency anemia, hypothyroid, GERD, , and bilateral foot pressure ulcers who presented from [facility] with fever, cough, and hypoxia, found with Tm 100.5, leukocytosis with left shift, and CXR suggestive of possible bilateral infiltrate, admitted for acute on chronic hypoxemic respiratory failure and sepsis 2/2 HCAP. #Acute on chronic hypoxemic/hypercapnic respiratory failure (baseline NC 2-4L) 2 /2 HCAP and right pleural effusion- minimal improvement #Sepsis 2/2 HCAP - IMproving #elevated ESR/CRP #Bilateral pleural effusions > Tm 100.5 on admission, WBC 20.5 with bands, RR to 30s, tachycardic to 130s > Lactate 1.2 > ABG on admission 7.4/39/73/24 > BCX negative to date > F/U sputum CX > ESR 119, CRp 29, osteo of ulcer? > S/p IVF NS 30cc/kg sepsis bolus and gentle continuous D5NS IVF. Will d/c IVF today given increased PVC on CXR and worsening respiratory failure. > Venous duplex negative for DVT > CXR 06/01/19 with worsening right sided pleural effusion > CT chest performed showing bilateral pneumonia and moderate pleural effusions >sputum culture: normal shoshana, though after antibiotics initiated - UA not overtly suggestive of UTI > Ct chest noncontrast showing bilateral pleural effusions -Continue IV abx for HCAP with zosyn 4.5gm IV q6hrs (05/30- ) and vancomycin 1gm IV q12hrs (05/29- ) (changed to zosyn to cover potential aspiration/ anaerobes given patient's lethargy). Plan for 5-7 days treatment pending clinical course. - Wean oxygen to keep O2 sat >/=92%. Continues to require high oxygen 60 percent FiO2 high flow and intermittent BiPAP - Pulm/crit care consulted, appreciate recs. Nebs scheduled q4hrs with suction q4hrs. -Will continue to evaluate whether patient needs thoracentesis. - Infectious disease consulted Dr. Serrano. Appreciate recommendations - Appreciate general surgery recommendations: Dr. Ruffin - Tylenol 650mg PO q6hrs PRN pain or fever - Duonebs q4hrs ATC -Follow-up on blood cultures - No growth to date #hx HTN but now requiring PRN midodrine at SNF for intermittent hypotension #hx HFpEF (LVEF 55%), with most recent TTE on 05/29/19 showing EF 40-45% #hx #hx HLD - EKG with sinus tachycardia, TWI in lateral leads (no prior in chart for comparison). Troponin negative on admission. Low suspicion for acute ACS - Continue home midodrine 5mg PO TID PRN SBP<90 - Can resume home statin once able to tolerate PO -lasix 20mg IV x 1 today on 06/05/19 given patient may have component of CHF exacerbation given bilateral pleural effusions and persistent hypoxemia - holding CLARICE-I, Beta Sadiq given intermittent hypotension - Appreciate cardiology recommendations: Dr. Owen #Encephalopathy in setting of sepsis and underlying Down's syndrome -appears to be back to baseline - Baseline nonverbal and bedbound - Treat sepsis as above - Limit sedating medications as able #Mild transaminitis - resolved #Hepatitis B surface antigen positive. Appears to have acute hepatitis B infection > Ultrasound unremarkable > Hepatitis IgM core ab positive, surface Ab negative - AST 38 and ALT 100 on admission, - Can resume home statin once able to tolerate PO -Check further hepatitis B serologies, f/u hepatitis B DNA -Will need outpatient hepatotology follow up #Chronic hyponatremia - improving - Na 134 on admission, now 136 - Per records from SNF, Na was 132 on 05/05/19 - Monitor BMP #hx Hypothyroid - TSH 3.7 -Levothyroxine 25 mg IV daily. Will switch to p.o. once patient able to tolerate #hx GERD - Pepcid for home omeprazole #hx iron deficiency anemia - H/H stable - Continue home ferrous sulfate 325mg PO daily #Right heel wound - Present on admission - Appreciate wound care/surgery consult - Wound care as per recs #Dysphasia #Goals of care -Discussed with healthcare decision-maker Mr. Sheriff the patient's cousin for 33 minutes. Discussed goals of care including tube feedings. Mr. Sheriff would like to continue CODE STATUS of DNR/DNI as per the POLST, however he is okay with NG tube feedings temporarily. No PEG -We will initiate tube feedings today FEN IVF: none DVT ppx: Heparin subq GI ppx: Pepcid Code Status: DNR/DNI with limited interventions Diet: Tube feedings when able Reason for continued hospitalization: Acute hypoxic respiratory failure 37 minutes spent on this encounter. Discussed with pulmonology, RN, Infectious disease, and healthcare decision maker. > 50% spent on counseling and care coordination. Time of note may not reflect time patient was seen. Subjective Date patient seen: Jun 05, 2019 Constitutional: Denies: chills, diaphoresis, fever, malaise, weakness, other HEENT: Denies: eye pain, blurred vision, tearing, double vision, ear pain, ear discharge, nose pain, nose congestion, throat pain, throat swelling, mouth pain , mouth swelling, other Cardiovascular: Denies: chest pain, edema, irregular heart rate, lightheadedness, palpitations, syncope, other Respiratory: Denies: cough, orthopnea, shortness of breath, SOB with excertion , SOB at rest, sputum, stridor, wheezing, other Gastrointestinal/Abdominal: Denies: abdomen distended, abdominal pain, black stools, tarry stools, blood in stool, constipated, diarrhea, difficulty swallowing, nausea, poor appetite, poor fluid intake, rectal bleeding, vomiting , other Genitourinary: Denies: burning, discharge, frequency, flank pain, hematuria, incontinence, pain, urgency, other Neurologic/Psychiatric: Denies: anxiety, depressed, emotional problems, headache, numbness, paresthesia, pre-existing deficit, seizure, tingling, tremors, weakness, other Endocrine: Denies: excessive sweating, flushing, intolerance to cold, intolerance to heat, increased hunger, increased thirst, increased urine, unexplained weight gain, unexplained weight loss, other Hematologic/Lymphatic: Denies: anemia, easy bleeding, easy bruising, other Allergies: Coded Allergies: KETAMINE (Verified Allergy, Unknown, 05/29/19) NSAIDS (NON-STEROIDAL ANTI-INFLAMMA (Verified Allergy, Unknown, 05/29/19) Subjective No acute events overnight per nursing. This morning patient again desaturated and was placed back on BiPAP. He had borderline blood pressure with systolic in the 80s and was given Midrin x1. Tube feeding have has been temporarily held given patient's on and off of BiPAP. Further subjective history unable to be obtained as patient is nonverbal Objective Last 24 Hour Vital Signs Date Time Temp Pulse Resp B/P (MAP) Pulse Ox O2 Delivery O2 Flow Rate FiO2 06/05/19 16:00 97.8 107 20 102/62 (75) 93 06/05/19 16:00 Nasal Cannula 40.0 06/05/19 16:00 40.0 60 06/05/19 16:00 110 06/05/19 15:18 111 24 92 High Flow 40.0 60 110 24 92 06/05/19 12:00 104 06/05/19 12:00 Nasal Cannula 40.0 06/05/19 12:00 97.8 91 20 90/45 (60) 95 06/05/19 10:58 84 26 92 High Flow 40.0 60 96 24 93 06/05/19 10:57 92 High Flow 40.0 60 06/05/19 09:07 40.0 60 06/05/19 08:00 86 06/05/19 08:00 40 06/05/19 08:00 Nasal Cannula 40.0 06/05/19 08:00 99.0 107 28 89/53 (65) 94 06/05/19 07:32 96 Bi-Pap 60 06/05/19 07:26 105 29 94 Full Face 100 06/05/19 07:05 111 27 76 High Flow 40.0 60 101 28 84 06/05/19 04:00 98.0 100 24 153/71 (98) 97 06/05/19 04:00 Nasal Cannula 40.0 06/05/19 04:00 40.0 40 06/05/19 03:51 86 20 100 High Flow 40.0 60 87 20 100 06/05/19 03:44 75 06/05/19 00:02 101 06/05/19 00:00 Nasal Cannula 40.0 06/05/19 00:00 98.4 93 28 151/60 (90) 97 06/04/19 23:28 84 20 100 High Flow 40.0 60 82 20 99 06/04/19 20:00 98.9 81 24 146/63 (90) 100 06/04/19 20:00 40.0 40 06/04/19 20:00 Nasal Cannula 40.0 06/04/19 19:24 67 06/04/19 19:04 87 20 98 High Flow 40.0 60 84 20 94 06/04/19 19:03 98 High Flow 40.0 60 Intake and Output 06/04/19 06/05/19 18:59 06:59 Intake Total 985.417 ml 1227.08 ml Output Total 2000 ml 1200 ml Balance -1014.583 ml 27.08 ml Intake Oral 0 ml Free Water 30 ml IV Total 985.417 ml 1007.08 ml Tube Feeding 190 ml Output Urine Total 2000 ml 1200 ml # Voids 5 # Bowel Movements 7 2 Laboratory Tests 06/05/19 03:10: White Blood Count 10.0, Red Blood Count 3.29L, Hemoglobin 11.0L, Hematocrit 32.3L, Mean Corpuscular Volume 98, Mean Corpuscular Hemoglobin 33.3H, Mean Corpuscular Hemoglobin Concent 34.0, Red Cell Distribution Width 11.9, Platelet Count 458H, Mean Platelet Volume 6.1L, Neutrophils (%) (Auto) 76.8H, Lymphocytes (%) (Auto) 12.9L, Monocytes (%) (Auto) 6.5, Eosinophils (%) (Auto) 2.9, Basophils (%) (Auto) 1.0, Sodium Level 140, Potassium Level 3.4L, Chloride Level 105, Carbon Dioxide Level 29, Anion Gap 6, Blood Urea Nitrogen 4L, Creatinine 0.8, Estimat Glomerular Filtration Rate > 60, Glucose Level 102, Calcium Level 8.6, Total Bilirubin 0.3, Aspartate Amino Transf (AST/SGOT) 38H, Alanine Aminotransferase (ALT/SGPT) 67, Alkaline Phosphatase 49, Pro-B-Type Natriuretic Peptide 1592H, Total Protein 6.4, Albumin 1.8L, Globulin 4.6, Albumin/Globulin Ratio 0.4L Height (Feet): 5 Height (Inches): 1.00 Weight (Pounds): 104 General Appearance: WD/WN, no apparent distress, lethargic EENT: PERRL/EOMI, normal ENT inspection, TMs normal Neck: non-tender, normal alignment, supple Cardiovascular: normal peripheral pulses, normal rate, regular rhythm, no JVD Respiratory/Chest: chest wall non-tender, other - Coarse breath sounds bilaterally Abdomen: normal bowel sounds, non tender, soft, no organomegaly, no mass Extremities: normal range of motion, non-tender, normal inspection Edema: other - No lower extremity edema bilaterally Neurologic: check totaler II-XII grossly normal, no motor/sensory deficits, alert, oriented x 3 Skin: normal pigmentation, warm/dry Joseph Durán D.O. Jun 05, 2019 18:02
--- NOTE | 2019-06-05 19:04 | Diagnostic Imaging Report ---
EXAM: XR Abdomen, 2 Views CLINICAL HISTORY: TUBE PLCMT TECHNIQUE: Frontal view of the abdomen pelvis with upright view of the abdomen. COMPARISON: 06 04 19 FINDINGS: Lower thorax: Curvilinear shadow overlying the left upper and lateral lung which may be related to overlying artifact as the lung markings extend beyond it. Severe interstitial and multilobar airspace infiltrate, worsened since the previous abdomen x-ray. Small pleural effusion on the left. The right cost phrenic sulcus is not included. Intraperitoneal space: No obvious free air on this single projection. Gastrointestinal tract: Moderate air distention of the stomach and small bowel. Bones joints: Nonacute Tubes, lines and devices: Nasogastric tube is adequately placed. Tip is within the lower fundus. IMPRESSION: Adequate nasogastric tube placement. Curvilinear shadow at the left upper chest which mimics a pleural line, likely related to overlying artifact given the lung markings extend to the periphery. Recommend attention on follow-up. Extensive bilateral interstitial and airspace infiltrates again noted which have worsened. There is also likely a small left pleural effusion.
[2019-06-05 20:00] VITALS: BP 92/54
[2019-06-06] VITALS: BP 90/51
--- NOTE | 2019-06-06 | Consultation ---
DATE OF CONSULTATION: 06/05/2019 CARDIOLOGY CONSULTATION REASON FOR CONSULTATION: Supraventricular tachycardia as well as congestive heart failure. HISTORY OF PRESENT ILLNESS: The patient is a 54-year-old man with a history of Down syndrome and he is currently nonverbal, hypertension, hyperlipidemia, congestive heart failure, history of iron deficiency anemia, as well as history of wounds and hypoxia, was admitted on May 29, 2019. The patient had episodes of supraventricular tachycardia with the heart rate went up to 107 beats per minute and echocardiogram also show ejection fraction of around 40 to 45 percent on May 30, 2019. The final echo showed EF of 55%. The patient also had aortic stenosis with aortic valve area of only 1 cm2. Cardiology consultation was obtained for further evaluation. At the time of my evaluation, the patient is nonverbal and was not able to provide any information. REVIEW OF SYSTEMS: Cannot be obtained. PAST MEDICAL HISTORY: As mentioned above. FAMILY HISTORY: Noncontributory. PHYSICAL EXAMINATION: VITAL SIGNS: Show blood pressure is 102/62, pulse is 107, respirations 18, and temperature 97.8. HEAD AND NECK: Shows positive JVD. He has a NG-tube in and oxygen via nasal cannula. LUNGS: Coarse rhonchi. CARDIOVASCULAR: Shows regular S1 and S2 with no gallop. ABDOMEN: Soft. EXTREMITIES: No pitting edema. LABORATORY AND DIAGNOSTIC DATA: His labs show white count of 10, hemoglobin 11, hematocrit 32.3, and platelet count of 458,000. Sodium 140, potassium 3.4, BUN of 4, creatinine 0.8, and glucose of 102. BNP is 1592. INR is 1. His hepatitis B antigen and antibody are both positive. Telemetry strips show episodes of SVT, sudden onset and sudden termination. ASSESSMENT AND PLAN: 1. Episode of supraventricular tachycardia. If the blood pressure allows, I will start him on low-dose Cardizem to prevent these episodes. 2. Congestive heart failure with elevated BNP. However, the patient is septic and blood pressure in the borderline, already started on midodrine, is on broad-spectrum IV antibiotics per Dr. Rand. His ejection fraction on final echo showed EF of 55%. 3. Down syndrome. 4. Respiratory failure. Further evaluation by Dr. Cleary due to pneumonia. 5. Severe sepsis. 6. Hypothyroidism. 7. Iron deficiency anemia. 8. Decubitus ulcer. Thank you very much for allowing me to participate in the care of this patient. Please do not hesitate to contact for any questions regarding my evaluation. Valerio Owen M.D. DR: GWEN JOB#: [id number] CC:
[2019-06-06] MEDS: Albuterol/Ipratropium 3ml neb HHN SCH ×6 (03:14→23:08)
[2019-06-06 04:00] VITALS: BP 105/58
[2019-06-06] MEDS: Piperacillin/Tazobactam 3.375 GM in D5W 110 ML IVPB SCH ×3 (05:32→21:24)
[2019-06-06 06:14] LABS: BASOPHILS % (AUTO) 0.7 % (0.0-2.0); HEMATOCRIT 30.2 % (42.0-52.0); HEMOGLOBIN 10.5 G/DL (14.2-18.0); LYMPHOCYTES % (AUTO) 18.5 % (20.0-45.0); MEAN CORPUSCULAR VOLUME 96 FL (80-99); MONOCYTES % (AUTO) 6.1 % (1.0-10.0); NEUTROPHILS % (AUTO) 73.7 % (45.0-75.0); PLATELET COUNT 535 K/UL (150-450); RED BLOOD COUNT 3.15 M/UL (4.70-6.10); RED CELL DISTRIBUTION WIDTH 12.3 % (11.6-14.8); WHITE BLOOD COUNT 11.7 K/UL (4.8-10.8)
[2019-06-06 06:52] LABS: ALANINE AMINOTRANSFERASE 77 U/L (12-78); ALBUMIN/GLOBULIN RATIO 0.4 (1.0-2.7); ALKALINE PHOSPHATASE 54 U/L (46-116); ANION GAP 11 mmol/L (5-15); ASPARTATE AMINO TRANSFERASE 41 U/L (15-37); BILIRUBIN,TOTAL 0.4 MG/DL (0.2-1.0); BLOOD UREA NITROGEN 5 mg/dL (7-18); CALCIUM 8.7 MG/DL (8.5-10.1); CARBON DIOXIDE 28 MMOL/L (21-32); CHLORIDE 100 MMOL/L (98-107); CREATININE 0.9 MG/DL (0.55-1.30); POTASSIUM 3.3 MMOL/L (3.5-5.1); SODIUM 139 MMOL/L (136-145)
[2019-06-06 08:00] VITALS: BP 109/76
[2019-06-06] MEDS: Docusate 100mg/10ml Liq NG SCH ×2 (08:15→21:23)
[2019-06-06] MEDS: Vancomycin 1 GM in NS 275 ML IVPB SCH ×2 (08:16→20:17)
[2019-06-06] MEDS: Zinc Sulfate 220mg cap NG SCH (08:16)
[2019-06-06] MEDS: Ferrous Sulfate 300 MG/5 ML UDC NG SCH (08:16)
[2019-06-06] MEDS: Ascorbic Acid 500mg tab NG SCH (08:16)
[2019-06-06] MEDS: Vitamin B-12 100mcg tab NG SCH (08:16)
[2019-06-06] MEDS: Heparin 5000 units/ml inj SUBQ SCH ×2 (08:17→21:24)
--- NOTE | 2019-06-06 10:42 | Surgery Progress Note ---
Surgery Progress Note Subjective Additional Comments Patient seen and examined bedside. Mild leukocytosis 11,000. No nausea vomiting fever chills. KUB identified NG tube in good positioning. Objective Last 24 Hour Vital Signs Date Time Temp Pulse Resp B/P (MAP) Pulse Ox O2 Delivery O2 Flow Rate FiO2 06/06/19 10:38 98 High Flow 40.0 60 06/06/19 08:00 98.0 98 20 109/76 (87) 97 06/06/19 08:00 40.0 60 06/06/19 08:00 Nasal Cannula 40.0 06/06/19 07:13 66 30 100 Full Face 100 102 30 99 Bi-Pap 100 06/06/19 07:11 100 Bi-Pap 100 06/06/19 04:00 Nasal Cannula 40.0 06/06/19 04:00 99.0 68 25 105/58 (74) 94 06/06/19 04:00 40 06/06/19 03:43 85 06/06/19 03:18 97 34 99 Full Face 60 102 30 99 Bi-Pap 60 06/06/19 03:17 99 Bi-Pap 60 06/06/19 01:13 76 21 97 Full Face 60 06/06/19 00:00 99.1 82 24 90/51 (64) 97 06/06/19 00:00 Nasal Cannula 40.0 06/05/19 23:49 83 06/05/19 23:30 102 30 97 Full Face 60 06/05/19 23:27 104 30 99 Bi-Pap 60 102 32 97 06/05/19 23:26 97 Bi-Pap 60 06/05/19 21:06 98 30 96 Full Face 60 06/05/19 20:30 111 28 94 Full Face 60 06/05/19 20:00 40 06/05/19 20:00 Nasal Cannula 40.0 06/05/19 20:00 100.0 98 22 92/54 (67) 98 06/05/19 19:47 125 06/05/19 19:05 108 18 94 High Flow 40.0 60 06/05/19 19:04 110 21 98 High Flow 40.0 60 108 21 94 06/05/19 18:59 94 High Flow 40.0 60 06/05/19 16:00 97.8 107 20 102/62 (75) 93 06/05/19 16:00 Nasal Cannula 40.0 06/05/19 16:00 40.0 60 06/05/19 16:00 110 06/05/19 15:18 111 24 92 High Flow 40.0 60 110 24 92 06/05/19 12:00 104 06/05/19 12:00 Nasal Cannula 40.0 06/05/19 12:00 97.8 91 20 90/45 (60) 95 06/05/19 10:58 84 26 92 High Flow 40.0 60 96 24 93 06/05/19 10:57 92 High Flow 40.0 60 I&O Intake and Output 06/05/19 06/06/19 19:00 07:00 Intake Total 945.516 ml 425.330 ml Output Total 2300 ml Balance -1354.484 ml 425.330 ml Free Water 30 ml IV Total 775.516 ml 425.330 ml Tube Feeding 140 ml Output Urine Total 2300 ml # Bowel Movements 2 Dressing: saturated Wound: clean Cardiovascular: RSR Respiratory: clear Abdomen: soft, non-tender, decreased bowel sounds Extremities: no cyanosis Laboratory Tests Test 06/06/19 03:43 White Blood Count 11.7 K/UL (4.8-10.8) H Red Blood Count 3.15 M/UL (4.70-6.10) L Hemoglobin 10.5 G/DL (14.2-18.0) L Hematocrit 30.2 % (42.0-52.0) L Mean Corpuscular Volume 96 FL (80-99) Mean Corpuscular Hemoglobin 33.3 PG (27.0-31.0) H Mean Corpuscular Hemoglobin Concent 34.8 G/DL (32.0-36.0) Red Cell Distribution Width 12.3 % (11.6-14.8) Platelet Count 535 K/UL (150-450) H Mean Platelet Volume 5.9 FL (6.5-10.1) L Neutrophils (%) (Auto) 73.7 % (45.0-75.0) Lymphocytes (%) (Auto) 18.5 % (20.0-45.0) L Monocytes (%) (Auto) 6.1 % (1.0-10.0) Eosinophils (%) (Auto) 1.0 % (0.0-3.0) Basophils (%) (Auto) 0.7 % (0.0-2.0) Sodium Level 139 MMOL/L (136-145) Potassium Level 3.3 MMOL/L (3.5-5.1) L Chloride Level 100 MMOL/L (98-107) Carbon Dioxide Level 28 MMOL/L (21-32) Anion Gap 11 mmol/L (5-15) Blood Urea Nitrogen 5 mg/dL (7-18) L Creatinine 0.9 MG/DL (0.55-1.30) Estimat Glomerular Filtration Rate > 60 mL/min (>60) Glucose Level 86 MG/DL (74-106) Calcium Level 8.7 MG/DL (8.5-10.1) Total Bilirubin 0.4 MG/DL (0.2-1.0) Aspartate Amino Transf (AST/SGOT) 41 U/L (15-37) H Alanine Aminotransferase (ALT/SGPT) 77 U/L (12-78) Alkaline Phosphatase 54 U/L (46-116) Total Protein 7.1 G/DL (6.4-8.2) Albumin 2.0 G/DL (3.4-5.0) L Globulin 5.1 g/dL Albumin/Globulin Ratio 0.4 (1.0-2.7) L Plan Problems: (1) Ulcer of right heel Assessment & Plan: This is a 54-year-old male with multiple medical comorbidities who is currently presented for fever and tachycardia. Patient identified to have abnormal decubitus pressure ulcer on right heel. On examination patient has a stage III full-thickness right heel decubitus ulcer periwound intact but mildly macerated. Surrounding erythema. No drainage. No underlying abscess. No bone palpable. No foul odor. Labs noted and identified. No signs of acute active inflammatory or infectious process from this. Patient does have a leukocytosis that significant. Will continue work-up for etiology Will recommend local wound care. Apply Thera honey followed by up to foam dressing daily. We will monitor. Thank you for this consultation we will follow with recommendations (2) Fever Assessment & Plan: Low-grade fevers, tachycardia, leukocytosis, abnormal labs Head to toe skin integrity and wound eval completed as above UA noted chest x-ray noted Possible aspiration pneumonia Continue antibiotics as per infectious disease IV fluids Patient not eating well and currently DNR/DNI and does not have feeding tube. Will get speech and swallow eval prior to diet (3) Tachycardia (4) Severe sepsis Assessment & Plan: DAILY ESTIMATED NEEDS: Needs based on wound, wasting, pulmonary/ 46kg 30-35 kcals/kg 6007-2702 total kcals 1.3-1.8 g protein/kg 60-83 g total protein 25-30 mL/kg 3514-1166 total fluid mLs NUTRITION DIAGNOSIS: * Swallowing difficulty R/T dysphagia, respiratory status as evidenced by h/o Down's syndrome, pt on pureed texture diet [employer], currently NPO, on BIPAP. * Increased kcal/prot needs R/T wound healing and wasting as evidenced by pt admitted w/ stage 3 rt heel wound, w/ mild-moderate generalized wasting. CURRENT DIET:NPO PO DIET RECOMMENDATIONS: IF SAFE FOR PO -> liberalized REGULAR/ texture per [employer] + Ensure Enlive TID ENTERAL NUTRITION RECOMMENDATIONS: CONSULT RD IF TF PART OF POC AND INDICATED: PER POLST, NO TF AT THIS TIME ADDITIONAL RECOMMENDATIONS: * Calibrated bedscale wt - bedscale wt per RD= 101lbs vs EMR [id number] * Monitor NPO status, ability to feed - [employer] eval pending, pt on BIPAP, altered. TF indicates no TF at this time * Monitor lytes, replete as needed * Wound healing: once able to feed-> add MVI w/ min x 1, Vit C 500mg QD -> add ZnSO4 220mg QD x 10 days -> Jeremy 1pkt BID as tolerated Alexis Ruffin Jun 06, 2019 10:42
--- NOTE | 2019-06-06 11:06 | Diagnostic Imaging Report ---
EXAM: XR Chest, 1 View CLINICAL HISTORY: INFECT TECHNIQUE: Frontal view of the chest. COMPARISON: Chest x-ray, 10 16 19 FINDINGS: Lungs: Interstitial thickening and airspace opacities bilaterally have moderately improved. Somewhat worsening right lower lung airspace opacities. Pleural space: Small bilateral pleural effusions, worse on the right, similar to prior study. Left costophrenic angle not on the [id number]. No pneumothorax. Heart: Unremarkable. No cardiomegaly. Mediastinum: Unremarkable. Bones joints: Thoracolumbar scoliosis. Tubes, lines and devices: NG tube traverses the diaphragm. IMPRESSION: 1. Interstitial thickening and airspace opacities bilaterally have moderately improved. Somewhat worsening right lower lung airspace opacities, somewhat consolidative. 2. Small bilateral pleural effusions, worse on the right, similar to prior study. Left costophrenic angle not on the [id number].
[2019-06-06 12:00] VITALS: BP 96/60
--- NOTE | 2019-06-06 14:30 | Cardiac Electrophysiology PN ---
Assessment/Plan Assessment/Plan 1. Episode of supraventricular tachycardia. Hold off on betablocker or CA blockers for hypotension 2. Congestive heart failure with elevated BNP. However, the patient is septic and blood pressure in the borderline, already started on midodrine, is on broad-spectrum IV antibiotics per Dr. Rand. His ejection fraction on final echo showed EF of 55%. 3. Down syndrome. 4. Respiratory failure. Further evaluation by Dr. Luevano due to pneumonia. 5. Severe sepsis. 6. Hypothyroidism. 7. Iron deficiency anemia. 8. Decubitus ulcer. Subjective Subjective In SDU. No SVT or VT Objective Last 24 Hour Vital Signs Date Time Temp Pulse Resp B/P (MAP) Pulse Ox O2 Delivery O2 Flow Rate FiO2 06/06/19 12:00 40.0 60 06/06/19 12:00 98.3 80 18 96/60 (72) 96 06/06/19 12:00 Nasal Cannula 40.0 06/06/19 11:23 94 06/06/19 10:38 98 High Flow 40.0 60 06/06/19 10:38 91 28 99 High Flow 40.0 60 95 28 99 06/06/19 08:00 98.0 98 20 109/76 (87) 97 06/06/19 08:00 40.0 60 06/06/19 08:00 Nasal Cannula 40.0 06/06/19 07:38 98 06/06/19 07:13 66 30 100 Full Face 100 102 30 99 Bi-Pap 100 06/06/19 07:11 100 Bi-Pap 100 06/06/19 04:00 Nasal Cannula 40.0 06/06/19 04:00 99.0 68 25 105/58 (74) 94 06/06/19 04:00 40 06/06/19 03:43 85 06/06/19 03:18 97 34 99 Full Face 60 102 30 99 Bi-Pap 60 06/06/19 03:17 99 Bi-Pap 60 06/06/19 01:13 76 21 97 Full Face 60 06/06/19 00:00 99.1 82 24 90/51 (64) 97 06/06/19 00:00 Nasal Cannula 40.0 06/05/19 23:49 83 06/05/19 23:30 102 30 97 Full Face 60 06/05/19 23:27 104 30 99 Bi-Pap 60 102 32 97 06/05/19 23:26 97 Bi-Pap 60 06/05/19 21:06 98 30 96 Full Face 60 06/05/19 20:30 111 28 94 Full Face 60 06/05/19 20:00 40 06/05/19 20:00 Nasal Cannula 40.0 06/05/19 20:00 100.0 98 22 92/54 (67) 98 06/05/19 19:47 125 06/05/19 19:05 108 18 94 High Flow 40.0 60 06/05/19 19:04 110 21 98 High Flow 40.0 60 108 21 94 06/05/19 18:59 94 High Flow 40.0 60 06/05/19 16:00 97.8 107 20 102/62 (75) 93 06/05/19 16:00 Nasal Cannula 40.0 06/05/19 16:00 40.0 60 06/05/19 16:00 110 06/05/19 15:18 111 24 92 High Flow 40.0 60 110 24 92 Intake and Output 06/05/19 06/06/19 18:59 06:59 Intake Total 1043.016 ml 397.830 ml Output Total 2300 ml Balance -1256.984 ml 397.830 ml Free Water 30 ml IV Total 853.016 ml 397.830 ml Tube Feeding 160 ml Output Urine Total 2300 ml # Bowel Movements 2 Laboratory Tests Test 06/06/19 03:43 White Blood Count 11.7 K/UL (4.8-10.8) H Red Blood Count 3.15 M/UL (4.70-6.10) L Hemoglobin 10.5 G/DL (14.2-18.0) L Hematocrit 30.2 % (42.0-52.0) L Mean Corpuscular Volume 96 FL (80-99) Mean Corpuscular Hemoglobin 33.3 PG (27.0-31.0) H Mean Corpuscular Hemoglobin Concent 34.8 G/DL (32.0-36.0) Red Cell Distribution Width 12.3 % (11.6-14.8) Platelet Count 535 K/UL (150-450) H Mean Platelet Volume 5.9 FL (6.5-10.1) L Neutrophils (%) (Auto) 73.7 % (45.0-75.0) Lymphocytes (%) (Auto) 18.5 % (20.0-45.0) L Monocytes (%) (Auto) 6.1 % (1.0-10.0) Eosinophils (%) (Auto) 1.0 % (0.0-3.0) Basophils (%) (Auto) 0.7 % (0.0-2.0) Sodium Level 139 MMOL/L (136-145) Potassium Level 3.3 MMOL/L (3.5-5.1) L Chloride Level 100 MMOL/L (98-107) Carbon Dioxide Level 28 MMOL/L (21-32) Anion Gap 11 mmol/L (5-15) Blood Urea Nitrogen 5 mg/dL (7-18) L Creatinine 0.9 MG/DL (0.55-1.30) Estimat Glomerular Filtration Rate > 60 mL/min (>60) Glucose Level 86 MG/DL (74-106) Calcium Level 8.7 MG/DL (8.5-10.1) Total Bilirubin 0.4 MG/DL (0.2-1.0) Aspartate Amino Transf (AST/SGOT) 41 U/L (15-37) H Alanine Aminotransferase (ALT/SGPT) 77 U/L (12-78) Alkaline Phosphatase 54 U/L (46-116) Total Protein 7.1 G/DL (6.4-8.2) Albumin 2.0 G/DL (3.4-5.0) L Globulin 5.1 g/dL Albumin/Globulin Ratio 0.4 (1.0-2.7) L Objective HEAD AND NECK: Positive JVD. He has a NG-tube in and oxygen via nasal cannula. LUNGS: Coarse rhonchi. CARDIOVASCULAR: Shows regular S1 and S2 with no gallop. ABDOMEN: Soft. EXTREMITIES: No pitting edema. Valerio Owen MD Jun 06, 2019 14:30
--- NOTE | 2019-06-06 15:01 | Pulmonology Progress Note ---
Assessment/Plan Problems: (1) Pneumonia (2) Acute and chronic respiratory failure with hypoxia (3) Severe sepsis (4) Fever (5) Down's syndrome (6) Tachycardia (7) Hypothyroid (8) HLD (hyperlipidemia) (9) HTN (hypertension) (10) GERD (gastroesophageal reflux disease) (11) Iron deficiency anemia (12) CHF (congestive heart failure) Assessment/Plan Problem List: 1. HCAP/BLL PNA, likely aspiration 2. Hypercapnic hypoxemic respiratory failure. 3. Down syndrome. 4. Small/mod b effusions 5. HTN & Hyperlipidemia 6. Gastroesophageal reflux disease. 7. Decubitus ulcers. 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, VSS, GT not within GOC -DNAR/DNI Case d/w RN Subjective Allergies: Coded Allergies: KETAMINE (Verified Allergy, Unknown, 05/29/19) NSAIDS (NON-STEROIDAL ANTI-INFLAMMA (Verified Allergy, Unknown, 05/29/19) Subjective AF on HFO2 40% VSS - used BiPAP ON Not as interactive today + cough + SOB no FC Objective Last 24 Hour Vital Signs Date Time Temp Pulse Resp B/P (MAP) Pulse Ox O2 Delivery O2 Flow Rate FiO2 06/06/19 12:00 40.0 60 06/06/19 12:00 98.3 80 18 96/60 (72) 96 06/06/19 12:00 Nasal Cannula 40.0 06/06/19 11:23 94 06/06/19 10:38 98 High Flow 40.0 60 06/06/19 10:38 91 28 99 High Flow 40.0 60 95 28 99 06/06/19 08:00 98.0 98 20 109/76 (87) 97 06/06/19 08:00 40.0 60 06/06/19 08:00 Nasal Cannula 40.0 06/06/19 07:38 98 06/06/19 07:13 66 30 100 Full Face 100 102 30 99 Bi-Pap 100 06/06/19 07:11 100 Bi-Pap 100 06/06/19 04:00 Nasal Cannula 40.0 06/06/19 04:00 99.0 68 25 105/58 (74) 94 10/19/19 04:00 40 06/06/19 03:43 85 06/06/19 03:18 97 34 99 Full Face 60 102 30 99 Bi-Pap 60 06/06/19 03:17 99 Bi-Pap 60 06/06/19 01:13 76 21 97 Full Face 60 06/06/19 00:00 99.1 82 24 90/51 (64) 97 06/06/19 00:00 Nasal Cannula 40.0 06/05/19 23:49 83 06/05/19 23:30 102 30 97 Full Face 60 06/05/19 23:27 104 30 99 Bi-Pap 60 102 32 97 06/05/19 23:26 97 Bi-Pap 60 06/05/19 21:06 98 30 96 Full Face 60 06/05/19 20:30 111 28 94 Full Face 60 06/05/19 20:00 40 06/05/19 20:00 Nasal Cannula 40.0 06/05/19 20:00 100.0 98 22 92/54 (67) 98 06/05/19 19:47 125 06/05/19 19:05 108 18 94 High Flow 40.0 60 06/05/19 19:04 110 21 98 High Flow 40.0 60 108 21 94 06/05/19 18:59 94 High Flow 40.0 60 06/05/19 16:00 97.8 107 20 102/62 (75) 93 06/05/19 16:00 Nasal Cannula 40.0 06/05/19 16:00 40.0 60 06/05/19 16:00 110 06/05/19 15:18 111 24 92 High Flow 40.0 60 110 24 92 Intake and Output 06/05/19 06/06/19 19:00 07:00 Intake Total 945.516 ml 425.330 ml Output Total 2300 ml Balance -1354.484 ml 425.330 ml Free Water 30 ml IV Total 775.516 ml 425.330 ml Tube Feeding 140 ml Output Urine Total 2300 ml # Bowel Movements 2 General Appearance: no acute distress, cachetic HEENT: normocephalic, atraumatic, anicteric, mucous membranes moist Respiratory/Chest: rhonchi Cardiovascular: normal peripheral pulses, normal rate, regular rhythm Abdomen: normal bowel sounds, soft, non tender, no organomegaly, non distended , no mass Extremities: no cyanosis, no clubbing, no edema Laboratory Tests 06/06/19 03:43: White Blood Count 11.7H, Red Blood Count 3.15L, Hemoglobin 10.5L, Hematocrit 30.2L, Mean Corpuscular Volume 96, Mean Corpuscular Hemoglobin 33.3H, Mean Corpuscular Hemoglobin Concent 34.8, Red Cell Distribution Width 12.3, Platelet Count 535H, Mean Platelet Volume 5.9L, Neutrophils (%) (Auto) 73.7, Lymphocytes (%) (Auto) 18.5L, Monocytes (%) (Auto) 6.1, Eosinophils (%) (Auto) 1.0, Basophils (%) (Auto) 0.7, Sodium Level 139, Potassium Level 3.3L, Chloride Level 100, Carbon Dioxide Level 28, Anion Gap 11, Blood Urea Nitrogen 5L, Creatinine 0.9, Estimat Glomerular Filtration Rate > 60, Glucose Level 86, Calcium Level 8.7, Total Bilirubin 0.4, Aspartate Amino Transf (AST/SGOT) 41H, Alanine Aminotransferase (ALT/SGPT) 77, Alkaline Phosphatase 54, Total Protein 7.1, Albumin 2.0L, Globulin 5.1, Albumin/Globulin Ratio 0.4L Current Medications Medications (Trade) Dose Ordered Sig/Kendra Route PRN Reason Start Time Stop Time Status Last Admin Dose Admin Acetaminophen (Tylenol) 650 mg Q6H PRN RECTAL Mild Pain (Pain Scale 1-3) 05/31/19 01:15 06/30/19 01:14 05/31/19 21:17 Acetylcysteine (Mucomyst) 100 mg Q4HRT [facility] 05/31/19 17:00 06/30/19 16:59 06/06/19 10:43 Albuterol/ Ipratropium (Albuterol/ Ipratropium) 3 ml Q4HRT N 06/05/19 19:00 06/12/19 18:59 06/06/19 10:43 Ascorbic Acid (Vitamin C) 500 mg DAILY NG 06/06/19 09:00 07/02/19 08:59 06/06/19 08:16 Bisacodyl (Dulcolax) 10 mg DAILYPRN PRN RECTAL constipation 05/31/19 10:45 06/29/19 10:44 Cyanocobalamin (Vitamin B-12 Tab) 100 mcg DAILY NG 06/05/19 09:00 06/30/19 08:59 06/06/19 08:16 Docusate Sodium (Colace) 100 mg EVERY 12 HOURS NG 06/05/19 21:00 07/05/19 20:59 06/06/19 08:15 Famotidine (Pepcid I.v.) 20 mg Q12HR IVP 05/31/19 09:00 06/30/19 08:59 06/06/19 08:16 Ferrous Sulfate (Feosol) 325 mg DAILY NG 06/05/19 09:00 07/05/19 08:59 06/06/19 08:16 Heparin Sodium (Porcine) (Heparin 5000 units/ml) 5,000 units EVERY 12 HOURS SUBQ 05/31/19 09:00 06/29/19 08:59 06/06/19 08:17 Levothyroxine Sodium (Synthroid) 25 mcg DAILY IV 06/04/19 10:30 07/04/19 10:29 06/06/19 09:27 Midodrine (Pro-Amatine) 5 mg TIDPRN PRN NG SBP<90 06/05/19 15:00 06/29/19 12:59 06/06/19 05:32 Multivitamins (Multivitamins) 1 tab DAILY NG 06/05/19 09:00 07/02/19 08:59 06/06/19 08:16 Piperacillin Sod/ Tazobactam Sod 3.375 gm/Dextrose 110 ml @ 27.5 mls/hr Q8HR IVPB 06/04/19 22:00 06/11/19 05:59 06/06/19 14:30 Vancomycin HCl (Vanco rx to dose) 1 ea DAILY PRN MISC Per rx protocol 06/05/19 18:00 07/04/19 08:14 Vancomycin HCl 1 gm/Sodium Chloride 275 ml @ 183.708 mls/hr Q12H IVPB 06/05/19 20:00 06/10/19 07:59 06/06/19 08:16 Zinc Sulfate (Zinc Sulfate) 220 mg DAILY NG 06/05/19 09:00 06/15/19 08:59 06/06/19 08:16 Yovani Luevano MD Jun 06, 2019 15:01
[2019-06-06] MEDS ORDERED: D5W 275ml ONE (15:26)
[2019-06-06] MEDS ORDERED: NS 275ml ONE ×2 (15:26→16:13)
[2019-06-06] MEDS ORDERED: Tubing IV Secondary IV ONE (15:26)
[2019-06-06 16:00] VITALS: BP 87/50
--- NOTE | 2019-06-06 18:24 | General Progress Note ---
Assessment/Plan Status: not improved, deteriorating, fever Assessment/Plan: Dwayne Gibson is a 54 yo man with PMH of Down's syndrome (nonverbal and bedbound at baseline), CHF (unknown EF), HTN, HLD, iron deficiency anemia, hypothyroid, GERD, , and bilateral foot pressure ulcers who presented from [facility] with fever, cough, and hypoxia, found with Tm 100.5, leukocytosis with left shift, and CXR suggestive of possible bilateral infiltrate, admitted for acute on chronic hypoxemic respiratory failure and sepsis 2/2 HCAP. #Acute on chronic hypoxemic/hypercapnic respiratory failure (baseline NC 2-4L) 2 /2 HCAP and right pleural effusion- minimal improvement #Sepsis 2/2 HCAP - Improving #elevated ESR/CRP #Bilateral pleural effusions > Tm 100.5 on admission, WBC 20.5 with bands, RR to 30s, tachycardic to 130s > Lactate 1.2 > ABG on admission 7.4/39/73/24 > BCX negative to date > F/U sputum CX > ESR 119, CRp 29, osteo of ulcer? > S/p IVF NS 30cc/kg sepsis bolus and gentle continuous D5NS IVF. HL IVF 06/05 given increased PVC on CXR and worsening respiratory failure. > Venous duplex negative for DVT > CXR 06/01/19 with worsening right sided pleural effusion > CT chest performed showing bilateral pneumonia and moderate pleural effusions >sputum culture: normal shoshana, though after antibiotics initiated - UA not overtly suggestive of UTI > Ct chest noncontrast showing bilateral pleural effusions -Continue IV abx for HCAP with zosyn 4.5gm IV q6hrs (05/30- ) and vancomycin 1gm IV q12hrs (05/29- ) (changed to zosyn to cover potential aspiration/ anaerobes given patient's lethargy). Plan for 5-7 days treatment pending clinical course. - Wean oxygen to keep O2 sat >/=92%. Continues to require high oxygen 60 percent FiO2 high flow and intermittent BiPAP - Pulm/crit care consulted, appreciate recs. Nebs scheduled q4hrs with suction q4hrs. -Will continue to evaluate whether patient needs thoracentesis. - Infectious disease consulted Dr. Serrano. Appreciate recommendations - Appreciate general surgery recommendations: Dr. Benyamini - Tylenol 650mg PO q6hrs PRN pain or fever - Duonebs q4hrs ATC -Follow-up on blood cultures - No growth to date #hx HTN but now requiring PRN midodrine at [facility] for intermittent hypotension #hx HFpEF (LVEF 55%), with most recent TTE on 05/29/19 showing EF 40-45% #hx #hx HLD - EKG with sinus tachycardia, TWI in lateral leads (no prior in chart for comparison). Troponin negative on admission. Low suspicion for acute ACS - Continue home midodrine 5mg PO TID PRN SBP<90 - Can resume home statin once able to tolerate PO -lasix 20mg IV x 1 today on 06/05/19 given patient may have component of CHF exacerbation given bilateral pleural effusions and persistent hypoxemia - holding CLARICE-I, Beta Sadiq given intermittent hypotension - Appreciate cardiology recommendations: Dr. Owen #Encephalopathy in setting of sepsis and underlying Down's syndrome -appears to be back to baseline - Baseline nonverbal and bedbound - Treat sepsis as above - Limit sedating medications as able #Mild transaminitis - resolved #Hepatitis B surface antigen positive. Appears to have acute hepatitis B infection > Ultrasound unremarkable > Hepatitis IgM core ab positive, surface Ab negative - AST 38 and ALT 100 on admission, - Can resume home statin once able to tolerate PO -Check further hepatitis B serologies, f/u hepatitis B DNA -Will need outpatient hepatotology follow up #Chronic hyponatremia - improving - Na 134 on admission, now 136 - Per records from [facility], Na was 132 on 05/05/19 - Monitor BMP #hx Hypothyroid - TSH 3.7 -Levothyroxine 25 mg IV daily. Will switch to p.o. once patient able to tolerate #hx GERD - Pepcid for home omeprazole #hx iron deficiency anemia - H/H stable - Continue home ferrous sulfate 325mg PO daily #Right heel wound - Present on admission - Appreciate wound care/surgery consult - Wound care as per recs #Dysphasia #Goals of care -Discussed with healthcare decision-maker Mr. Sheriff the patient's cousin for 33 minutes. Discussed goals of care including tube feedings. Mr. Sheriff would like to continue CODE STATUS of DNR/DNI as per the POLST, however he is okay with NG tube feedings temporarily. No PEG -TF started 06/05 FEN IVF: none DVT ppx: Heparin subq GI ppx: Pepcid Code Status: DNR/DNI with limited interventions Diet: Tube feedings when able Reason for continued hospitalization: Acute hypoxic respiratory failure 49 minutes spent on this encounter. Discussed with pulmonology, RN, > 50% spent on counseling and care coordination. Time of note may not reflect time patient was seen. Subjective Date patient seen: Jun 06, 2019 Time patient seen: 13:00 ROS Limited/Unobtainable: Yes Allergies: Coded Allergies: KETAMINE (Verified Allergy, Unknown, 05/29/19) NSAIDS (NON-STEROIDAL ANTI-INFLAMMA (Verified Allergy, Unknown, 05/29/19) All Systems: reviewed and negative except above - non verbal Objective Last 24 Hour Vital Signs Date Time Temp Pulse Resp B/P (MAP) Pulse Ox O2 Delivery O2 Flow Rate FiO2 06/06/19 16:00 98.9 103 20 87/50 (62) 96 06/06/19 16:00 Nasal Cannula 40.0 06/06/19 16:00 40.0 60 06/06/19 15:29 110 06/06/19 15:06 98 28 98 High Flow 40.0 60 89 28 97 06/06/19 15:05 97 High Flow 40.0 60 06/06/19 12:00 40.0 60 06/06/19 12:00 98.3 80 18 96/60 (72) 96 06/06/19 12:00 Nasal Cannula 40.0 06/06/19 11:23 94 06/06/19 10:38 98 High Flow 40.0 60 06/06/19 10:38 91 28 99 High Flow 40.0 60 95 28 99 06/06/19 08:00 98.0 98 20 109/76 (87) 97 06/06/19 08:00 40.0 60 06/06/19 08:00 Nasal Cannula 40.0 06/06/19 07:38 98 06/06/19 07:13 66 30 100 Full Face 100 102 30 99 Bi-Pap 100 06/06/19 07:11 100 Bi-Pap 100 06/06/19 04:00 Nasal Cannula 40.0 06/06/19 04:00 99.0 68 25 105/58 (74) 94 06/06/19 04:00 40 06/06/19 03:43 85 10/19/19 03:18 97 34 99 Full Face 60 102 30 99 Bi-Pap 60 06/06/19 03:17 99 Bi-Pap 60 06/06/19 01:13 76 21 97 Full Face 60 06/06/19 00:00 99.1 82 24 90/51 (64) 97 06/06/19 00:00 Nasal Cannula 40.0 06/05/19 23:49 83 06/05/19 23:30 102 30 97 Full Face 60 06/05/19 23:27 104 30 99 Bi-Pap 60 102 32 97 06/05/19 23:26 97 Bi-Pap 60 06/05/19 21:06 98 30 96 Full Face 60 06/05/19 20:30 111 28 94 Full Face 60 06/05/19 20:00 40 06/05/19 20:00 Nasal Cannula 40.0 06/05/19 20:00 100.0 98 22 92/54 (67) 98 06/05/19 19:47 125 06/05/19 19:05 108 18 94 High Flow 40.0 60 06/05/19 19:04 110 21 98 High Flow 40.0 60 108 21 94 06/05/19 18:59 94 High Flow 40.0 60 Intake and Output 06/05/19 06/06/19 18:59 06:59 Intake Total 1043.016 ml 397.830 ml Output Total 2300 ml Balance -1256.984 ml 397.830 ml Free Water 30 ml IV Total 853.016 ml 397.830 ml Tube Feeding 160 ml Output Urine Total 2300 ml # Bowel Movements 2 Laboratory Tests 06/06/19 03:43: White Blood Count 11.7H, Red Blood Count 3.15L, Hemoglobin 10.5L, Hematocrit 30.2L, Mean Corpuscular Volume 96, Mean Corpuscular Hemoglobin 33.3H, Mean Corpuscular Hemoglobin Concent 34.8, Red Cell Distribution Width 12.3, Platelet Count 535H, Mean Platelet Volume 5.9L, Neutrophils (%) (Auto) 73.7, Lymphocytes (%) (Auto) 18.5L, Monocytes (%) (Auto) 6.1, Eosinophils (%) (Auto) 1.0, Basophils (%) (Auto) 0.7, Sodium Level 139, Potassium Level 3.3L, Chloride Level 100, Carbon Dioxide Level 28, Anion Gap 11, Blood Urea Nitrogen 5L, Creatinine 0.9, Estimat Glomerular Filtration Rate > 60, Glucose Level 86, Calcium Level 8.7, Total Bilirubin 0.4, Aspartate Amino Transf (AST/SGOT) 41H, Alanine Aminotransferase (ALT/SGPT) 77, Alkaline Phosphatase 54, Total Protein 7.1, Albumin 2.0L, Globulin 5.1, Albumin/Globulin Ratio 0.4L Height (Feet): 5 Height (Inches): 1.00 Weight (Pounds): 104 General Appearance: WD/WN EENT: PERRL/EOMI Neck: non-tender Cardiovascular: normal rate Respiratory/Chest: chest wall non-tender Abdomen: soft Genitourinary/Rectal: normal rectal exam Edema: trace edema Neurologic: depressed affect, other - non verbal Skin: palled Watson Anna MD Jun 06, 2019 18:24
[2019-06-06 20:00] VITALS: BP 90/51
[2019-06-07] VITALS: BP 117/61
[2019-06-07] MEDS: Albuterol/Ipratropium 3ml neb HHN SCH ×6 (03:50→23:07)
[2019-06-07 04:00] VITALS: BP 126/61
[2019-06-07] MEDS: Piperacillin/Tazobactam 3.375 GM in D5W 110 ML IVPB SCH ×3 (05:45→22:28)
[2019-06-07 07:14] LABS: BASOPHILS % (AUTO) 0.8 % (0.0-2.0); EOSINOPHILS % (AUTO) 1.5 % (0.0-3.0); HEMATOCRIT 32.3 % (42.0-52.0); HEMOGLOBIN 10.9 G/DL (14.2-18.0); LYMPHOCYTES % (AUTO) 19.8 % (20.0-45.0); MEAN CORPUSCULAR VOLUME 96 FL (80-99); MONOCYTES % (AUTO) 5.8 % (1.0-10.0); NEUTROPHILS % (AUTO) 72.1 % (45.0-75.0); PLATELET COUNT 541 K/UL (150-450); RED BLOOD COUNT 3.37 M/UL (4.70-6.10); RED CELL DISTRIBUTION WIDTH 12.2 % (11.6-14.8); WHITE BLOOD COUNT 11.1 K/UL (4.8-10.8)
[2019-06-07 07:24] LABS: ALANINE AMINOTRANSFERASE 66 U/L (12-78); ALBUMIN/GLOBULIN RATIO 0.4 (1.0-2.7); ALKALINE PHOSPHATASE 50 U/L (46-116); ANION GAP 4 mmol/L (5-15); ASPARTATE AMINO TRANSFERASE 35 U/L (15-37); BILIRUBIN,TOTAL 0.4 MG/DL (0.2-1.0); BLOOD UREA NITROGEN 7 mg/dL (7-18); CALCIUM 8.5 MG/DL (8.5-10.1); CARBON DIOXIDE 30 MMOL/L (21-32); CHLORIDE 103 MMOL/L (98-107); CREATININE 1.2 MG/DL (0.55-1.30); POTASSIUM 3.5 MMOL/L (3.5-5.1); SODIUM 137 MMOL/L (136-145)
[2019-06-07 08:00] VITALS: BP 102/40
[2019-06-07] MEDS: Docusate 100mg/10ml Liq NG SCH ×2 (09:58→21:04)
[2019-06-07] MEDS: Vitamin B-12 100mcg tab NG SCH (09:58)
[2019-06-07] MEDS: Ascorbic Acid 500mg tab NG SCH (09:58)
[2019-06-07] MEDS: Ferrous Sulfate 300 MG/5 ML UDC NG SCH (09:59)
[2019-06-07] MEDS: Zinc Sulfate 220mg cap NG SCH (09:59)
[2019-06-07] MEDS: Heparin 5000 units/ml inj SUBQ SCH ×2 (10:01→21:05)
[2019-06-07] MEDS: Vancomycin 750mg/NS 275ml IVPB SCH ×4 (11:38→23:27)
[2019-06-07 12:00] VITALS: BP 99/66
--- NOTE | 2019-06-07 12:18 | General Progress Note ---
Assessment/Plan Status: not improved, unchanged, deteriorating Assessment/Plan: Dwayne Gibson is a 54 yo man with PMH of Down's syndrome (nonverbal and bedbound at baseline), CHF (unknown EF), HTN, HLD, iron deficiency anemia, hypothyroid, GERD, with JANETTE 1 cm2, and bilateral foot pressure ulcers who presented from [facility] with fever, cough, and hypoxia, found with Tm 100.5, leukocytosis with left shift, and CXR suggestive of possible bilateral infiltrate, admitted for acute on chronic hypoxemic respiratory failure and sepsis 2/2 HCAP. #Acute on chronic hypoxemic/hypercapnic respiratory failure (baseline NC 2-4L) 2 /2 HCAP and right pleural effusion- minimal improvement, last CXR 06/06 #Sepsis 2/2 HCAP - Improving #elevated ESR/CRP #Bilateral pleural effusions > Tm 100.5 on admission, WBC 20.5 with bands, RR to 30s, tachycardic to 130s > Lactate 1.2 > ABG on admission 7.4/39/73/24 > BCX negative to date > F/U sputum CX > ESR 119, CRp 29, osteo of ulcer? > S/p IVF NS 30cc/kg sepsis bolus and gentle continuous D5NS IVF. HL IVF 06/05 given increased PVC on CXR and worsening respiratory failure. > Venous duplex negative for DVT > CXR 06/01/19 with worsening right sided pleural effusion, 06/06 CXR with mild improvement noted and reviewed > CT chest performed showing bilateral pneumonia and moderate pleural effusions >sputum culture: normal shoshana, though after antibiotics initiated - UA not overtly suggestive of UTI > Ct chest noncontrast showing bilateral pleural effusions -Continue IV abx for HCAP with zosyn 4.5gm IV q6hrs (05/30- ) and vancomycin 1gm IV q12hrs (05/29- ) (changed to zosyn to cover potential aspiration/ anaerobes given patient's lethargy). Plan for 5-7 days treatment pending clinical course. - Wean oxygen to keep O2 sat >/=92%. Continues to require high oxygen 60 percent FiO2 high flow and intermittent BiPAP - Pulm/crit care consulted, appreciate recs. Nebs scheduled q4hrs with suction q4hrs. -Will continue to evaluate whether patient needs thoracentesis. - Infectious disease consulted Dr. Serrano. Appreciate recommendations - Appreciate general surgery recommendations: Dr. Ruffin - Tylenol 650mg PO q6hrs PRN pain or fever - Duonebs q4hrs ATC -Follow-up on blood cultures - No growth to date #hx HTN but now requiring PRN midodrine at SNF for intermittent hypotension #hx HFpEF (LVEF 55%), with most recent TTE on 05/29/19 showing EF 40-45% #hx #hx HLD - EKG with sinus tachycardia, TWI in lateral leads (no prior in chart for comparison). Troponin negative on admission. Low suspicion for acute ACS - Continue home midodrine 5mg PO TID PRN SBP<90 - Can resume home statin once able to tolerate PO - holding CLARICE-I, Beta Sadiq given intermittent hypotension - Appreciate cardiology recommendations: Dr. Owen - consider spot lasix dose if fluid overload is noted. ( done 06/05 ) #Encephalopathy in setting of sepsis and underlying Down's syndrome -appears to be back to baseline - Baseline nonverbal and bedbound - Treat sepsis as above - Limit sedating medications as able #Mild transaminitis - resolved #Hepatitis B surface antigen positive. Appears to have acute hepatitis B infection > Ultrasound unremarkable > Hepatitis IgM core ab positive, surface Ab negative - AST 38 and ALT 100 on admission, - Can resume home statin once able to tolerate PO -Check further hepatitis B serologies, f/u hepatitis B DNA -Will need outpatient hepatotology follow up #Chronic hyponatremia - improving - Na 134 on admission, now 136 - Per records from SNF, Na was 132 on 05/05/19 - Monitor BMP #hx Hypothyroid - TSH 3.7 -Levothyroxine 25 mg IV daily. Will switch to p.o. once patient able to tolerate #hx GERD - Pepcid for home omeprazole #hx iron deficiency anemia - H/H stable - Continue home ferrous sulfate 325mg PO daily #Right heel wound - Present on admission - Appreciate wound care/surgery consult - Wound care as per recs #Dysphasia Supportive ST care and trials as he used to be able to eat 100 % with assistance at SNF # Thrombocytosis with platelets of 541,000 most likely reactive. - Monitor #Goals of care -Discussed with healthcare decision-maker Mr. Sheriff the patient's cousin for 33 minutes. Discussed goals of care including tube feedings. Mr. Sheriff would like to continue CODE STATUS of DNR/DNI as per the POLST, however he is okay with NG tube feedings temporarily. No PEG -TF started 06/05 FEN IVF: none DVT ppx: Heparin subq GI ppx: Pepcid Code Status: DNR/DNI with limited interventions Diet: Tube feedings Reason for continued hospitalization: Acute hypoxic respiratory failure 49 minutes spent on this encounter. Discussed with pulmonology, RN, > 50% spent on counseling and care coordination. Time of note may not reflect time patient was seen. Subjective Date patient seen: Jun 07, 2019 Time patient seen: 10:30 ROS Limited/Unobtainable: Yes Allergies: Coded Allergies: KETAMINE (Verified Allergy, Unknown, 05/29/19) NSAIDS (NON-STEROIDAL ANTI-INFLAMMA (Verified Allergy, Unknown, 05/29/19) All Systems: reviewed and negative except above Subjective Patient on Bipap overnight. Active in bed -restless and moving down per RN report. Per RT he is suctioning secretions which are thick and NOT purulent. No fever noted overnight. Objective Last 24 Hour Vital Signs Date Time Temp Pulse Resp B/P (MAP) Pulse Ox O2 Delivery O2 Flow Rate FiO2 06/07/19 10:54 93 28 99 High Flow 40.0 60 98 24 95 06/07/19 10:50 95 High Flow 45.0 60 06/07/19 08:00 Bi-pap 06/07/19 08:00 98.4 104 18 102/40 (60) 93 06/07/19 08:00 40.0 60 06/07/19 07:46 82 06/07/19 07:02 93 28 99 Bi-Pap 60 86 24 97 06/07/19 07:01 Bi-Pap 60 06/07/19 05:35 85 30 100 Facial 80 06/07/19 04:03 75 19 100 Bi-Pap 80 06/07/19 04:00 Bi-pap 06/07/19 04:00 80 06/07/19 04:00 98.8 73 20 126/61 (82) 100 06/07/19 04:00 73 06/07/19 03:48 85 25 100 Facial 80 06/07/19 03:48 83 25 100 Bi-Pap 80 06/07/19 03:45 Bi-Pap 80 06/07/19 00:48 108 28 100 Full Face 80 06/07/19 00:00 98.2 103 22 117/61 (79) 98 06/07/19 00:00 Bi-pap 06/07/19 00:00 103 06/06/19 23:08 98 24 98 High Flow 45.0 50 94 24 96 06/06/19 23:07 Bi-Pap 06/06/19 22:30 90 24 99 Full Face 80 06/06/19 20:36 97 High Flow 45.0 50 06/06/19 20:00 99.5 90 22 90/51 (64) 97 06/06/19 20:00 Nasal Cannula 40.0 06/06/19 20:00 83 06/06/19 20:00 40.0 60 06/06/19 20:00 88 24 98 High Flow 45.0 50 85 24 97 06/06/19 16:00 98.9 103 20 87/50 (62) 96 06/06/19 16:00 Nasal Cannula 40.0 06/06/19 16:00 40.0 60 06/06/19 15:29 110 06/06/19 15:06 98 28 98 High Flow 40.0 60 89 28 97 06/06/19 15:05 97 High Flow 40.0 60 Intake and Output 06/06/19 06/07/19 19:00 07:00 Intake Total 740.920 ml 709.375 ml Output Total 500 ml 400 ml Balance 240.920 ml 309.375 ml Free Water 80 ml 50 ml IV Total 440.920 ml 419.375 ml Tube Feeding 220 ml 240 ml Output Urine Total 500 ml 400 ml Laboratory Tests 06/07/19 07:00: White Blood Count 11.1H, Red Blood Count 3.37L, Hemoglobin 10.9L, Hematocrit 32.3L, Mean Corpuscular Volume 96, Mean Corpuscular Hemoglobin 32.4H, Mean Corpuscular Hemoglobin Concent 33.8, Red Cell Distribution Width 12.2, Platelet Count 541H, Mean Platelet Volume 6.0L, Neutrophils (%) (Auto) 72.1, Lymphocytes (%) (Auto) 19.8L, Monocytes (%) (Auto) 5.8, Eosinophils (%) (Auto) 1.5, Basophils (%) (Auto) 0.8, Sodium Level 137, Potassium Level 3.5, Chloride Level 103, Carbon Dioxide Level 30, Anion Gap 4L, Blood Urea Nitrogen 7, Creatinine 1.2, Estimat Glomerular Filtration Rate > 60, Glucose Level 113H, Calcium Level 8.5, Total Bilirubin 0.4, Aspartate Amino Transf (AST/SGOT) 35, Alanine Aminotransferase (ALT/SGPT) 66, Alkaline Phosphatase 50, Total Protein 7.1, Albumin 2.0L, Globulin 5.1, Albumin/Globulin Ratio 0.4L, Vancomycin Level Trough 24.6H Height (Feet): 5 Height (Inches): 1.00 Weight (Pounds): 104 General Appearance: moderate distress EENT: PERRL/EOMI, other - strabismus Neck: normal alignment, supple Cardiovascular: normal rate, systolic murmur, friction rub Respiratory/Chest: no accessory muscle use, decreased breath sounds Abdomen: non tender, soft 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
--- NOTE | 2019-06-07 14:10 | Infectious Diseases Prog Note ---
Assessment/Plan Assessment/Plan ASSESSMENT AND PLAN: 1. aspiration pna/HCAP, sepsis, leukocytosis, fevers, sirs, sob - vancomycin and zosyn - day # 8 antibiotic combination, plan on at least 10 days tx since still sob - sputum culture with normal shoshana but patient on abx prior to sputum culture - monitor labs, chest x-ray improved - monitor clinically, still on bipap 2. Hypoxic. Continue treatment per Pulmonary Medicine. The patient is on a breathing mask. 3. Right heel wound was noted. He has been seen by Surgery. Upon reviewing the Surgery note, it does not seem to be acutely infected. Continue wound care per Surgery. 4. The patient has history of Down syndrome. 5. Nonverbal. 6. Hypothyroidism. Continue thyroid supplementation. 7. Hypertension. Continue blood pressure treatment per primary care team. 8. Congestive heart failure. 9. Hyperlipidemia. 10. Anemia. 11. Gastroesophageal reflux disease. 12. . 13. Hypoxia. 14. Breathing mask. 15. Wound care protocol. Continue wound treatment per protocol. 16. Allergies to ketamine and NSAIDs. 17. Social history is negative. 18. Family history is noncontributory. 19. MAR is noted. 20. Case was discussed with RN. 21. Case was discussed with Dr. Durán. 22. mrsa and vre colonization Subjective Constitutional: Reports: other - no change in mental status, + bipap; Denies: fever HEENT: Reports: congestion Respiratory: Reports: shortness of breath Cardiovascular: Denies: chest pain Gastrointestinal/Abdominal: Denies: nausea, vomiting, diarrhea Genitourinary: Denies: dysuria Neurologic: Denies: headache Psychiatric: Denies: depression Skin: Denies: rash Hematologic: Denies: bleeding Musculoskeletal: Denies: pain Allergies: Coded Allergies: KETAMINE (Verified Allergy, Unknown, 05/29/19) NSAIDS (NON-STEROIDAL ANTI-INFLAMMA (Verified Allergy, Unknown, 05/29/19) Objective Vital Signs Last 24 Hour Vital Signs Date Time Temp Pulse Resp B/P (MAP) Pulse Ox O2 Delivery O2 Flow Rate FiO2 06/07/19 13:34 101 28 99 Full Face 60 06/07/19 12:22 106 21 93 Full Face 80 06/07/19 12:00 Bi-pap 06/07/19 12:00 99.6 123 20 99/66 (77) 93 06/07/19 12:00 80 10/20/19 11:44 110 06/07/19 10:54 93 28 99 High Flow 40.0 60 98 24 95 06/07/19 10:50 95 High Flow 45.0 60 06/07/19 08:00 Bi-pap 06/07/19 08:00 98.4 104 18 102/40 (60) 93 06/07/19 08:00 40.0 60 06/07/19 07:46 82 06/07/19 07:02 93 28 99 Bi-Pap 60 86 24 97 06/07/19 07:01 Bi-Pap 60 06/07/19 05:35 85 30 100 Facial 80 06/07/19 04:03 75 19 100 Bi-Pap 80 06/07/19 04:00 Bi-pap 06/07/19 04:00 80 06/07/19 04:00 98.8 73 20 126/61 (82) 100 06/07/19 04:00 73 06/07/19 03:48 85 25 100 Facial 80 06/07/19 03:48 83 25 100 Bi-Pap 80 06/07/19 03:45 Bi-Pap 80 06/07/19 00:48 108 28 100 Full Face 80 06/07/19 00:00 98.2 103 22 117/61 (79) 98 06/07/19 00:00 Bi-pap 06/07/19 00:00 103 06/06/19 23:08 98 24 98 High Flow 45.0 50 94 24 96 06/06/19 23:07 Bi-Pap 06/06/19 22:30 90 24 99 Full Face 80 06/06/19 20:36 97 High Flow 45.0 50 06/06/19 20:00 99.5 90 22 90/51 (64) 97 06/06/19 20:00 Nasal Cannula 40.0 06/06/19 20:00 83 06/06/19 20:00 40.0 60 06/06/19 20:00 88 24 98 High Flow 45.0 50 85 24 97 06/06/19 16:00 98.9 103 20 87/50 (62) 96 06/06/19 16:00 Nasal Cannula 40.0 06/06/19 16:00 40.0 60 06/06/19 15:29 110 06/06/19 15:06 98 28 98 High Flow 40.0 60 89 28 97 06/06/19 15:05 97 High Flow 40.0 60 Height (Feet): 5 Height (Inches): 1.00 Weight (Pounds): 104 General Appearance: no acute distress HEENT: normocephalic, atraumatic, anicteric, mucous membranes moist Respiratory/Chest: crackles/rales, rhonchi - bilaterally Cardiovascular: normal rate, regular rhythm, no gallop/murmur, no JVD Abdomen: normal bowel sounds, non distended Genitourinary: other - + jones - urine clear Extremities: no cyanosis Skin: no rash 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 Most likely on the basis of pulmonary edema; other etiologies including inflammatory also possible. Posterior reticular opacities and nodular airspace opacities, could indicate active inflammatory changes or airspace edema Minimal pericardial thickening or fluid Mild diffuse esophageal wall thickening, could indicate esophagitis. Correlate with clinical findings Chest x-ray - 06/03/19 - Procedure: XRAY Chest 1v Indication: Shortness of breath Technique: One view of the chest Comparison: 2018 Findings: Body habitus limits evaluation. There is diffuse bilateral interstitial and airspace disease, increased from the previous exam. There is persistent right greater than left pleural fluid Impression: Worsening of bilateral interstitial and airspace edema, since prior study of 2 days earlier Chest x-ray - 06/06/19 - COMPARISON: Chest x-ray, 06 03 19 FINDINGS: Lungs: Interstitial thickening and airspace opacities bilaterally have moderately improved. Somewhat worsening right lower lung airspace opacities. Pleural space: Small bilateral pleural effusions, worse on the right, similar to prior study. Left costophrenic angle not on the [id number]. No pneumothorax. Heart: Unremarkable. No cardiomegaly. Mediastinum: Unremarkable. Bones joints: Thoracolumbar scoliosis. Tubes, lines and devices: NG tube traverses the diaphragm. IMPRESSION: 1. Interstitial thickening and airspace opacities bilaterally have moderately improved. Somewhat worsening right lower lung airspace opacities, somewhat consolidative. 2. Small bilateral pleural effusions, worse on the right, similar to prior study. Left costophrenic angle not on the [id number]. Microbiology Date/Time Source Procedure Growth Status 05/29/19 18:40 Blood Blood Culture - Final NO GROWTH AFTER 5 DAYS Complete 06/01/19 14:00 Sputum Gram Stain - Final Complete 06/01/19 14:00 Sputum Sputum Culture - Final NORMAL UPPER RESPIRATORY SHOSHANA PRESENT Complete 05/29/19 21:00 Rectum - Final NO CARBAPENEM-RESISTANT ENTEROBACTERI... Complete Laboratory Tests Test 06/07/19 07:00 White Blood Count 11.1 K/UL (4.8-10.8) H Red Blood Count 3.37 M/UL (4.70-6.10) L Hemoglobin 10.9 G/DL (14.2-18.0) L Hematocrit 32.3 % (42.0-52.0) L Mean Corpuscular Volume 96 FL (80-99) Mean Corpuscular Hemoglobin 32.4 PG (27.0-31.0) H Mean Corpuscular Hemoglobin Concent 33.8 G/DL (32.0-36.0) Red Cell Distribution Width 12.2 % (11.6-14.8) Platelet Count 541 K/UL (150-450) H Mean Platelet Volume 6.0 FL (6.5-10.1) L Neutrophils (%) (Auto) 72.1 % (45.0-75.0) Lymphocytes (%) (Auto) 19.8 % (20.0-45.0) L Monocytes (%) (Auto) 5.8 % (1.0-10.0) Eosinophils (%) (Auto) 1.5 % (0.0-3.0) Basophils (%) (Auto) 0.8 % (0.0-2.0) Sodium Level 137 MMOL/L (136-145) Potassium Level 3.5 MMOL/L (3.5-5.1) Chloride Level 103 MMOL/L (98-107) Carbon Dioxide Level 30 MMOL/L (21-32) Anion Gap 4 mmol/L (5-15) L Blood Urea Nitrogen 7 mg/dL (7-18) Creatinine 1.2 MG/DL (0.55-1.30) Estimat Glomerular Filtration Rate > 60 mL/min (>60) Glucose Level 113 MG/DL (74-106) H Calcium Level 8.5 MG/DL (8.5-10.1) Total Bilirubin 0.4 MG/DL (0.2-1.0) Aspartate Amino Transf (AST/SGOT) 35 U/L (15-37) Alanine Aminotransferase (ALT/SGPT) 66 U/L (12-78) Alkaline Phosphatase 50 U/L (46-116) Total Protein 7.1 G/DL (6.4-8.2) Albumin 2.0 G/DL (3.4-5.0) L Globulin 5.1 g/dL Albumin/Globulin Ratio 0.4 (1.0-2.7) L Vancomycin Level Trough 24.6 ug/mL (5.0-12.0) H Current Medications Medications (Trade) Dose Ordered Sig/Kendra Route PRN Reason Start Time Stop Time Status Last Admin Dose Admin Acetaminophen (Tylenol) 650 mg Q6H PRN RECTAL Mild Pain (Pain Scale 1-3) 05/31/19 01:15 06/30/19 01:14 05/31/19 21:17 Acetylcysteine (Mucomyst) 100 mg Q4HRT N 05/31/19 17:00 06/30/19 16:59 06/07/19 10:57 Albuterol/ Ipratropium (Albuterol/ Ipratropium) 3 ml Q4HRT N 06/05/19 19:00 06/12/19 18:59 06/07/19 10:56 Ascorbic Acid (Vitamin C) 500 mg DAILY NG 06/06/19 09:00 07/02/19 08:59 06/07/19 09:58 Bisacodyl (Dulcolax) 10 mg DAILYPRN PRN RECTAL constipation 05/31/19 10:45 06/29/19 10:44 Cyanocobalamin (Vitamin B-12 Tab) 100 mcg DAILY NG 06/05/19 09:00 06/30/19 08:59 06/07/19 09:58 Docusate Sodium (Colace) 100 mg EVERY 12 HOURS NG 06/05/19 21:00 07/05/19 20:59 06/07/19 09:58 Famotidine (Pepcid I.v.) 20 mg Q12HR IVP 05/31/19 09:00 06/30/19 08:59 06/07/19 10:01 Ferrous Sulfate (Feosol) 325 mg DAILY NG 06/05/19 09:00 07/05/19 08:59 06/07/19 09:59 Heparin Sodium (Porcine) (Heparin 5000 units/ml) 5,000 units EVERY 12 HOURS SUBQ 05/31/19 09:00 06/29/19 08:59 06/07/19 10:01 Levothyroxine Sodium (Synthroid) 25 mcg DAILY IV 06/04/19 10:30 07/04/19 10:29 06/07/19 09:58 Midodrine (Pro-Amatine) 5 mg TIDPRN PRN NG SBP<90 06/05/19 15:00 06/29/19 12:59 06/07/19 03:36 Multivitamins (Multivitamins) 1 tab DAILY NG 06/05/19 09:00 07/02/19 08:59 06/07/19 09:59 Piperacillin Sod/ Tazobactam Sod 3.375 gm/Dextrose 110 ml @ 27.5 mls/hr Q8HR IVPB 06/04/19 22:00 06/11/19 05:59 06/07/19 05:45 Vancomycin HCl (Vanco rx to dose) 1 ea DAILY PRN MISC Per rx protocol 06/05/19 18:00 07/04/19 08:14 Vancomycin HCl 750 mg/Sodium Chloride 275 ml @ 183.333 mls/hr Q12H IVPB 06/07/19 11:00 06/12/19 10:59 06/07/19 11:38 Zinc Sulfate (Zinc Sulfate) 220 mg DAILY NG 06/05/19 09:00 06/15/19 08:59 06/07/19 09:59 Rafia Rand MD Jun 07, 2019 14:10
--- NOTE | 2019-06-07 14:57 | Cardiac Electrophysiology PN ---
Assessment/Plan Assessment/Plan 1. Episode of supraventricular tachycardia. Hold off on betablocker or CA blockers for hypotension 2. Congestive heart failure with elevated BNP. However, the patient is septic and blood pressure in the borderline, already on midodrine. His ejection fraction on final echo showed EF of 55%. 3. Down syndrome. 4. Respiratory failure. Further evaluation by Dr. Luevano due to pneumonia. 5. Severe sepsis is on broad-spectrum IV antibiotics per Dr. Rand. 6. Hypothyroidism. 7. Iron deficiency anemia. 8. Decubitus ulcer. LUNA RN Subjective Subjective In SDU. No SVT or VT. On antibiotics. Objective Last 24 Hour Vital Signs Date Time Temp Pulse Resp B/P (MAP) Pulse Ox O2 Delivery O2 Flow Rate FiO2 06/07/19 13:34 101 28 99 Full Face 60 06/07/19 12:22 106 21 93 Full Face 80 06/07/19 12:00 Bi-pap 06/07/19 12:00 99.6 123 20 99/66 (77) 93 06/07/19 12:00 80 06/07/19 11:44 110 06/07/19 10:54 93 28 99 High Flow 40.0 60 98 24 95 06/07/19 10:50 95 High Flow 45.0 60 06/07/19 08:00 Bi-pap 06/07/19 08:00 98.4 104 18 102/40 (60) 93 06/07/19 08:00 40.0 60 06/07/19 07:46 82 06/07/19 07:02 93 28 99 Bi-Pap 60 86 24 97 06/07/19 07:01 Bi-Pap 60 06/07/19 05:35 85 30 100 Facial 80 06/07/19 04:03 75 19 100 Bi-Pap 80 06/07/19 04:00 Bi-pap 06/07/19 04:00 80 06/07/19 04:00 98.8 73 20 126/61 (82) 100 06/07/19 04:00 73 06/07/19 03:48 85 25 100 Facial 80 06/07/19 03:48 83 25 100 Bi-Pap 80 06/07/19 03:45 Bi-Pap 80 06/07/19 00:48 108 28 100 Full Face 80 06/07/19 00:00 98.2 103 22 117/61 (79) 98 06/07/19 00:00 Bi-pap 06/07/19 00:00 103 06/06/19 23:08 98 24 98 High Flow 45.0 50 94 24 96 06/06/19 23:07 Bi-Pap 06/06/19 22:30 90 24 99 Full Face 80 06/06/19 20:36 97 High Flow 45.0 50 06/06/19 20:00 99.5 90 22 90/51 (64) 97 06/06/19 20:00 Nasal Cannula 40.0 06/06/19 20:00 83 06/06/19 20:00 40.0 60 06/06/19 20:00 88 24 98 High Flow 45.0 50 85 24 97 06/06/19 16:00 98.9 103 20 87/50 (62) 96 06/06/19 16:00 Nasal Cannula 40.0 06/06/19 16:00 40.0 60 06/06/19 15:29 110 06/06/19 15:06 98 28 98 High Flow 40.0 60 89 28 97 06/06/19 15:05 97 High Flow 40.0 60 Intake and Output 06/06/19 06/07/19 19:00 07:00 Intake Total 740.920 ml 709.375 ml Output Total 500 ml 400 ml Balance 240.920 ml 309.375 ml Free Water 80 ml 50 ml IV Total 440.920 ml 419.375 ml Tube Feeding 220 ml 240 ml Output Urine Total 500 ml 400 ml Laboratory Tests Test 06/07/19 07:00 White Blood Count 11.1 K/UL (4.8-10.8) H Red Blood Count 3.37 M/UL (4.70-6.10) L Hemoglobin 10.9 G/DL (14.2-18.0) L Hematocrit 32.3 % (42.0-52.0) L Mean Corpuscular Volume 96 FL (80-99) Mean Corpuscular Hemoglobin 32.4 PG (27.0-31.0) H Mean Corpuscular Hemoglobin Concent 33.8 G/DL (32.0-36.0) Red Cell Distribution Width 12.2 % (11.6-14.8) Platelet Count 541 K/UL (150-450) H Mean Platelet Volume 6.0 FL (6.5-10.1) L Neutrophils (%) (Auto) 72.1 % (45.0-75.0) Lymphocytes (%) (Auto) 19.8 % (20.0-45.0) L Monocytes (%) (Auto) 5.8 % (1.0-10.0) Eosinophils (%) (Auto) 1.5 % (0.0-3.0) Basophils (%) (Auto) 0.8 % (0.0-2.0) Sodium Level 137 MMOL/L (136-145) Potassium Level 3.5 MMOL/L (3.5-5.1) Chloride Level 103 MMOL/L (98-107) Carbon Dioxide Level 30 MMOL/L (21-32) Anion Gap 4 mmol/L (5-15) L Blood Urea Nitrogen 7 mg/dL (7-18) Creatinine 1.2 MG/DL (0.55-1.30) Estimat Glomerular Filtration Rate > 60 mL/min (>60) Glucose Level 113 MG/DL (74-106) H Calcium Level 8.5 MG/DL (8.5-10.1) Total Bilirubin 0.4 MG/DL (0.2-1.0) Aspartate Amino Transf (AST/SGOT) 35 U/L (15-37) Alanine Aminotransferase (ALT/SGPT) 66 U/L (12-78) Alkaline Phosphatase 50 U/L (46-116) Total Protein 7.1 G/DL (6.4-8.2) Albumin 2.0 G/DL (3.4-5.0) L Globulin 5.1 g/dL Albumin/Globulin Ratio 0.4 (1.0-2.7) L Vancomycin Level Trough 24.6 ug/mL (5.0-12.0) H Objective HEAD AND NECK: Positive JVD. He has a NG-tube in and oxygen via nasal cannula. LUNGS: Coarse rhonchi. CARDIOVASCULAR: Shows regular S1 and S2 with no gallop. ABDOMEN: Soft. EXTREMITIES: No pitting edema. Valerio Owen MD Jun 07, 2019 14:56
[2019-06-07] MEDS ORDERED: NS 275ml ONE (15:16)
[2019-06-07 16:00] VITALS: BP 135/96
--- NOTE | 2019-06-07 16:05 | Surgery Progress Note ---
Surgery Progress Note Subjective Additional Comments low grade fevers slight leukocytosis exam stable cxr noted Objective Last 24 Hour Vital Signs Date Time Temp Pulse Resp B/P (MAP) Pulse Ox O2 Delivery O2 Flow Rate FiO2 06/07/19 15:11 82 24 99 Full Face 60 82 21 96 Bi-Pap 60 06/07/19 15:10 Bi-Pap 60 06/07/19 13:34 101 28 99 Full Face 60 06/07/19 12:22 106 21 93 Full Face 80 06/07/19 12:00 Bi-pap 06/07/19 12:00 99.6 123 20 99/66 (77) 93 06/07/19 12:00 80 06/07/19 11:44 110 06/07/19 10:54 93 28 99 High Flow 40.0 60 98 24 95 06/07/19 10:50 95 High Flow 45.0 60 06/07/19 08:00 Bi-pap 06/07/19 08:00 98.4 104 18 102/40 (60) 93 06/07/19 08:00 40.0 60 06/07/19 07:46 82 06/07/19 07:02 93 28 99 Bi-Pap 60 86 24 97 06/07/19 07:01 Bi-Pap 60 06/07/19 05:35 85 30 100 Facial 80 06/07/19 04:03 75 19 100 Bi-Pap 80 06/07/19 04:00 Bi-pap 06/07/19 04:00 80 06/07/19 04:00 98.8 73 20 126/61 (82) 100 06/07/19 04:00 73 06/07/19 03:48 85 25 100 Facial 80 06/07/19 03:48 83 25 100 Bi-Pap 80 06/07/19 03:45 Bi-Pap 80 06/07/19 00:48 108 28 100 Full Face 80 06/07/19 00:00 98.2 103 22 117/61 (79) 98 06/07/19 00:00 Bi-pap 06/07/19 00:00 103 06/06/19 23:08 98 24 98 High Flow 45.0 50 94 24 96 06/06/19 23:07 Bi-Pap 06/06/19 22:30 90 24 99 Full Face 80 06/06/19 20:36 97 High Flow 45.0 50 06/06/19 20:00 99.5 90 22 90/51 (64) 97 06/06/19 20:00 Nasal Cannula 40.0 06/06/19 20:00 83 06/06/19 20:00 40.0 60 06/06/19 20:00 88 24 98 High Flow 45.0 50 85 24 97 I&O Intake and Output 06/06/19 06/07/19 19:00 07:00 Intake Total 740.920 ml 709.375 ml Output Total 500 ml 400 ml Balance 240.920 ml 309.375 ml Free Water 80 ml 50 ml IV Total 440.920 ml 419.375 ml Tube Feeding 220 ml 240 ml Output Urine Total 500 ml 400 ml Dressing: saturated Wound: clean Cardiovascular: RSR Respiratory: clear Abdomen: soft, non-tender, present bowel sounds Extremities: other Laboratory Tests Test 06/07/19 07:00 White Blood Count 11.1 K/UL (4.8-10.8) H Red Blood Count 3.37 M/UL (4.70-6.10) L Hemoglobin 10.9 G/DL (14.2-18.0) L Hematocrit 32.3 % (42.0-52.0) L Mean Corpuscular Volume 96 FL (80-99) Mean Corpuscular Hemoglobin 32.4 PG (27.0-31.0) H Mean Corpuscular Hemoglobin Concent 33.8 G/DL (32.0-36.0) Red Cell Distribution Width 12.2 % (11.6-14.8) Platelet Count 541 K/UL (150-450) H Mean Platelet Volume 6.0 FL (6.5-10.1) L Neutrophils (%) (Auto) 72.1 % (45.0-75.0) Lymphocytes (%) (Auto) 19.8 % (20.0-45.0) L Monocytes (%) (Auto) 5.8 % (1.0-10.0) Eosinophils (%) (Auto) 1.5 % (0.0-3.0) Basophils (%) (Auto) 0.8 % (0.0-2.0) Sodium Level 137 MMOL/L (136-145) Potassium Level 3.5 MMOL/L (3.5-5.1) Chloride Level 103 MMOL/L (98-107) Carbon Dioxide Level 30 MMOL/L (21-32) Anion Gap 4 mmol/L (5-15) L Blood Urea Nitrogen 7 mg/dL (7-18) Creatinine 1.2 MG/DL (0.55-1.30) Estimat Glomerular Filtration Rate > 60 mL/min (>60) Glucose Level 113 MG/DL (74-106) H Calcium Level 8.5 MG/DL (8.5-10.1) Total Bilirubin 0.4 MG/DL (0.2-1.0) Aspartate Amino Transf (AST/SGOT) 35 U/L (15-37) Alanine Aminotransferase (ALT/SGPT) 66 U/L (12-78) Alkaline Phosphatase 50 U/L (46-116) Total Protein 7.1 G/DL (6.4-8.2) Albumin 2.0 G/DL (3.4-5.0) L Globulin 5.1 g/dL Albumin/Globulin Ratio 0.4 (1.0-2.7) L Vancomycin Level Trough 24.6 ug/mL (5.0-12.0) H Plan Problems: (1) Ulcer of right heel Assessment & Plan: This is a 54-year-old male with multiple medical comorbidities who is currently presented for fever and tachycardia. Patient identified to have abnormal decubitus pressure ulcer on right heel. On examination patient has a stage III full-thickness right heel decubitus ulcer periwound intact but mildly macerated. Surrounding erythema. No drainage. No underlying abscess. No bone palpable. No foul odor. Labs noted and identified. No signs of acute active inflammatory or infectious process from this. Patient does have a leukocytosis that significant. Will continue work-up for etiology Will recommend local wound care. Apply Thera honey followed by up to foam dressing daily. We will monitor. Thank you for this consultation we will follow with recommendations (2) Fever Assessment & Plan: Low-grade fevers, tachycardia, leukocytosis, abnormal labs Head to toe skin integrity and wound eval completed as above UA noted chest x-ray noted Possible aspiration pneumonia Continue antibiotics as per infectious disease IV fluids Patient not eating well and currently DNR/DNI and does not have feeding tube. Will get speech and swallow eval prior to diet (3) Tachycardia (4) Severe sepsis Assessment & Plan: DAILY ESTIMATED NEEDS: Needs based on wound, wasting, pulmonary/ 46kg 30-35 kcals/kg 4028-1647 total kcals 1.3-1.8 g protein/kg 60-83 g total protein 25-30 mL/kg 4005-1679 total fluid mLs NUTRITION DIAGNOSIS: * Swallowing difficulty R/T dysphagia, respiratory status as evidenced by h/o Down's syndrome, pt on pureed texture diet OIL DRILLER, currently NPO, on BIPAP. * Increased kcal/prot needs R/T wound healing and wasting as evidenced by pt admitted w/ stage 3 rt heel wound, w/ mild-moderate generalized wasting. CURRENT DIET:NPO PO DIET RECOMMENDATIONS: IF SAFE FOR PO -> liberalized REGULAR/ texture per CLOTH LAYER + Ensure Enlive TID ENTERAL NUTRITION RECOMMENDATIONS: CONSULT RD IF TF PART OF POC AND INDICATED: PER POLST, NO TF AT THIS TIME ADDITIONAL RECOMMENDATIONS: * Calibrated bedscale wt - bedscale wt per RD= 101lbs vs EMR xz=[id number] * Monitor NPO status, ability to feed - CLOTH LAYER eval pending, pt on BIPAP, altered. TF indicates no TF at this time * Monitor lytes, replete as needed * Wound healing: once able to feed-> add MVI w/ min x 1, Vit C 500mg QD -> add ZnSO4 220mg QD x 10 days -> Jeremy 1pkt BID as tolerated Alexis Ruffin Jun 07, 2019 16:05
[2019-06-07 20:00] VITALS: BP 126/61
--- NOTE | 2019-06-07 22:29 | Pulmonology Progress Note ---
Assessment/Plan Problems: (1) Pneumonia (2) Acute and chronic respiratory failure with hypoxia (3) Severe sepsis (4) Fever (5) Down's syndrome (6) Tachycardia (7) Hypothyroid (8) HLD (hyperlipidemia) (9) HTN (hypertension) (10) GERD (gastroesophageal reflux disease) (11) Iron deficiency anemia (12) CHF (congestive heart failure) Assessment/Plan Problem List: 1. HCAP/BLL PNA, likely aspiration 2. Hypercapnic hypoxemic respiratory failure. 3. Down syndrome. 4. Small/mod b effusions 5. HTN & Hyperlipidemia 6. Gastroesophageal reflux disease. 7. Decubitus ulcers. Plan: -NGTF's only when stable off BiPAP -BiPAP 12/5 qhs and prn -Titrate high flow nasal cannula -cont abx per ID -monitor effusions -MANAGER OF TRAINING AND DEVELOPMENT recs, VSS, GT not within GOC -DNAR/DNI Case d/w RN Subjective Allergies: Coded Allergies: KETAMINE (Verified Allergy, Unknown, 05/29/19) NSAIDS (NON-STEROIDAL ANTI-INFLAMMA (Verified Allergy, Unknown, 05/29/19) Subjective Low grade fevers on bipap less interactive no cough + SOB Objective Last 24 Hour Vital Signs Date Time Temp Pulse Resp B/P (MAP) Pulse Ox O2 Delivery O2 Flow Rate FiO2 06/07/19 21:13 96 22 96 Full Face 50 06/07/19 19:19 96 Bi-Pap 50 06/07/19 19:18 84 26 95 Full Face 50 76 24 98 Bi-Pap 50 06/07/19 17:18 78 31 98 Full Face 50 06/07/19 16:00 80 06/07/19 16:00 Bi-pap 06/07/19 16:00 98.1 80 18 135/96 (109) 96 06/07/19 15:31 88 06/07/19 15:11 82 24 99 Full Face 60 82 21 96 Bi-Pap 60 06/07/19 15:10 Bi-Pap 60 06/07/19 13:34 101 28 99 Full Face 60 06/07/19 12:22 106 21 93 Full Face 80 06/07/19 12:00 Bi-pap 06/07/19 12:00 99.6 123 20 99/66 (77) 93 06/07/19 12:00 80 06/07/19 11:44 110 06/07/19 10:54 93 28 99 High Flow 40.0 60 98 24 95 06/07/19 10:50 95 High Flow 45.0 60 06/07/19 08:00 Bi-pap 06/07/19 08:00 98.4 104 18 102/40 (60) 93 06/07/19 08:00 40.0 60 06/07/19 07:46 82 06/07/19 07:02 93 28 99 Bi-Pap 60 86 24 97 06/07/19 07:01 Bi-Pap 60 06/07/19 05:35 85 30 100 Facial 80 06/07/19 04:03 75 19 100 Bi-Pap 80 06/07/19 04:00 Bi-pap 06/07/19 04:00 80 06/07/19 04:00 98.8 73 20 126/61 (82) 100 06/07/19 04:00 73 06/07/19 03:48 85 25 100 Facial 80 06/07/19 03:48 83 25 100 Bi-Pap 80 06/07/19 03:45 Bi-Pap 80 06/07/19 00:48 108 28 100 Full Face 80 06/07/19 00:00 98.2 103 22 117/61 (79) 98 06/07/19 00:00 Bi-pap 06/07/19 00:00 103 06/06/19 23:08 98 24 98 High Flow 45.0 50 94 24 96 06/06/19 23:07 Bi-Pap 06/06/19 22:30 90 24 99 Full Face 80 Intake and Output 06/06/19 06/07/19 18:59 06:59 Intake Total 748.420 ml 681.875 ml Output Total 500 ml 400 ml Balance 248.420 ml 281.875 ml Free Water 80 ml 50 ml IV Total 468.420 ml 391.875 ml Tube Feeding 200 ml 240 ml Output Urine Total 500 ml 400 ml General Appearance: no acute distress, cachetic HEENT: normocephalic, atraumatic, anicteric, mucous membranes moist Respiratory/Chest: rhonchi Cardiovascular: normal peripheral pulses, normal rate, regular rhythm Abdomen: normal bowel sounds, soft, non tender, no organomegaly, non distended , no mass Extremities: no cyanosis, no clubbing, no edema Laboratory Tests 06/07/19 07:00: White Blood Count 11.1H, Red Blood Count 3.37L, Hemoglobin 10.9L, Hematocrit 32.3L, Mean Corpuscular Volume 96, Mean Corpuscular Hemoglobin 32.4H, Mean Corpuscular Hemoglobin Concent 33.8, Red Cell Distribution Width 12.2, Platelet Count 541H, Mean Platelet Volume 6.0L, Neutrophils (%) (Auto) 72.1, Lymphocytes (%) (Auto) 19.8L, Monocytes (%) (Auto) 5.8, Eosinophils (%) (Auto) 1.5, Basophils (%) (Auto) 0.8, Sodium Level 137, Potassium Level 3.5, Chloride Level 103, Carbon Dioxide Level 30, Anion Gap 4L, Blood Urea Nitrogen 7, Creatinine 1.2, Estimat Glomerular Filtration Rate > 60, Glucose Level 113H, Calcium Level 8.5, Total Bilirubin 0.4, Aspartate Amino Transf (AST/SGOT) 35, Alanine Aminotransferase (ALT/SGPT) 66, Alkaline Phosphatase 50, Total Protein 7.1, Albumin 2.0L, Globulin 5.1, Albumin/Globulin Ratio 0.4L, Vancomycin Level Trough 24.6H Current Medications Medications (Trade) Dose Ordered Sig/Kendra Route PRN Reason Start Time Stop Time Status Last Admin Dose Admin Acetaminophen (Tylenol) 650 mg Q6H PRN RECTAL Mild Pain (Pain Scale 1-3) 05/31/19 01:15 06/30/19 01:14 05/31/19 21:17 Acetylcysteine (Mucomyst) 100 mg Q4HRT N 05/31/19 17:00 06/30/19 16:59 06/07/19 19:18 Albuterol/ Ipratropium (Albuterol/ Ipratropium) 3 ml Q4HRT N 06/05/19 19:00 06/12/19 18:59 06/07/19 19:18 Ascorbic Acid (Vitamin C) 500 mg DAILY NG 06/06/19 09:00 07/02/19 08:59 06/07/19 09:58 Bisacodyl (Dulcolax) 10 mg DAILYPRN PRN RECTAL constipation 05/31/19 10:45 06/29/19 10:44 Cyanocobalamin (Vitamin B-12 Tab) 100 mcg DAILY NG 06/05/19 09:00 06/30/19 08:59 06/07/19 09:58 Docusate Sodium (Colace) 100 mg EVERY 12 HOURS NG 06/05/19 21:00 07/05/19 20:59 06/07/19 21:04 Famotidine (Pepcid I.v.) 20 mg Q12HR IVP 05/31/19 09:00 06/30/19 08:59 06/07/19 21:04 Ferrous Sulfate (Feosol) 325 mg DAILY NG 06/05/19 09:00 07/05/19 08:59 06/07/19 09:59 Heparin Sodium (Porcine) (Heparin 5000 units/ml) 5,000 units EVERY 12 HOURS SUBQ 05/31/19 09:00 06/29/19 08:59 06/07/19 21:05 Levothyroxine Sodium (Synthroid) 25 mcg DAILY IV 06/04/19 10:30 07/04/19 10:29 06/07/19 09:58 Midodrine (Pro-Amatine) 5 mg TIDPRN PRN NG SBP<90 06/05/19 15:00 06/29/19 12:59 06/07/19 03:36 Multivitamins (Multivitamins) 1 tab DAILY NG 06/05/19 09:00 07/02/19 08:59 06/07/19 09:59 Piperacillin Sod/ Tazobactam Sod 3.375 gm/Dextrose 110 ml @ 27.5 mls/hr Q8HR IVPB 06/04/19 22:00 06/11/19 05:59 06/07/19 15:02 Vancomycin HCl (Vanco rx to dose) 1 ea DAILY PRN MISC Per rx protocol 06/05/19 18:00 07/04/19 08:14 Vancomycin HCl 750 mg/Sodium Chloride 275 ml @ 183.333 mls/hr Q12H IVPB 06/07/19 11:00 06/12/19 10:59 06/07/19 11:38 Zinc Sulfate (Zinc Sulfate) 220 mg DAILY NG 06/05/19 09:00 06/15/19 08:59 06/07/19 09:59 Yovani Luevano MD Jun 07, 2019 22:29
[2019-06-08] VITALS: BP 110/64
[2019-06-08] MEDS: Albuterol/Ipratropium 3ml neb HHN SCH ×6 (03:01→23:26)
[2019-06-08 04:00] VITALS: BP 121/68
[2019-06-08 05:13] LABS: BASOPHILS % (AUTO) 0.8 % (0.0-2.0); EOSINOPHILS % (AUTO) 2.2 % (0.0-3.0); HEMATOCRIT 28.1 % (42.0-52.0); HEMOGLOBIN 9.7 G/DL (14.2-18.0); LYMPHOCYTES % (AUTO) 18.9 % (20.0-45.0); MEAN CORPUSCULAR VOLUME 96 FL (80-99); MONOCYTES % (AUTO) 5.6 % (1.0-10.0); NEUTROPHILS % (AUTO) 72.5 % (45.0-75.0); PLATELET COUNT 516 K/UL (150-450); RED BLOOD COUNT 2.92 M/UL (4.70-6.10); RED CELL DISTRIBUTION WIDTH 12.1 % (11.6-14.8); WHITE BLOOD COUNT 11.5 K/UL (4.8-10.8)
[2019-06-08 06:01] LABS: ANION GAP 7 mmol/L (5-15); BLOOD UREA NITROGEN 7 mg/dL (7-18); CALCIUM 8.8 MG/DL (8.5-10.1); CARBON DIOXIDE 26 MMOL/L (21-32); CHLORIDE 105 MMOL/L (98-107); PHOSPHORUS 3.7 MG/DL (2.5-4.9); SODIUM 138 MMOL/L (136-145)
[2019-06-08] MEDS: Piperacillin/Tazobactam 3.375 GM in D5W 110 ML IVPB SCH ×3 (06:13→21:04)
[2019-06-08 08:00] VITALS: BP 91/41
[2019-06-08] MEDS: Ascorbic Acid 500mg tab NG SCH (08:28)
[2019-06-08] MEDS: Vitamin B-12 100mcg tab NG SCH (08:29)
[2019-06-08] MEDS: Ferrous Sulfate 300 MG/5 ML UDC NG SCH (08:29)
[2019-06-08] MEDS: Zinc Sulfate 220mg cap NG SCH (08:29)
[2019-06-08] MEDS: Docusate 100mg/10ml Liq NG SCH ×2 (08:29→20:08)
[2019-06-08] MEDS: Heparin 5000 units/ml inj SUBQ SCH ×2 (08:35→20:08)
[2019-06-08] MEDS ORDERED: Sodium Chloride for KCL Premix x 2hrs IV SCH (09:00)
--- NOTE | 2019-06-08 11:14 | Surgery Progress Note ---
Surgery Progress Note Subjective Additional Comments No acute events. Persistent leukocytosis 11,000. Exam unchanged labs noted Objective Last 24 Hour Vital Signs Date Time Temp Pulse Resp B/P (MAP) Pulse Ox O2 Delivery O2 Flow Rate FiO2 06/08/19 09:25 91 26 96 Full Face 50 06/08/19 08:30 82 24 94 Full Face 50 06/08/19 08:00 Bi-pap 06/08/19 08:00 97.9 89 20 91/41 (58) 95 06/08/19 08:00 40.0 60 06/08/19 07:47 119 06/08/19 07:20 93 22 98 High Flow 40.0 60 95 22 94 06/08/19 07:20 95 Bi-Pap 50 06/08/19 05:13 92 18 96 Full Face 50 06/08/19 04:00 50 06/08/19 04:00 98.5 88 18 121/68 (85) 98 06/08/19 04:00 88 06/08/19 04:00 Bi-pap 06/08/19 03:02 85 22 99 Full Face 50 85 22 99 Bi-Pap 50 06/08/19 02:58 98 Bi-Pap 50 06/08/19 01:18 90 22 98 Full Face 50 06/08/19 00:00 Bi-pap 06/08/19 00:00 98.5 89 18 110/64 (79) 98 06/08/19 00:00 89 06/07/19 23:09 98 Bi-Pap 50 06/07/19 23:08 71 16 99 Full Face 50 73 21 98 Bi-Pap 50 06/07/19 21:13 96 22 96 Full Face 50 06/07/19 20:00 50 06/07/19 20:00 Bi-pap 06/07/19 20:00 91 06/07/19 20:00 98.5 88 20 126/61 (82) 96 06/07/19 19:19 96 Bi-Pap 50 06/07/19 19:18 84 26 95 Full Face 50 76 24 98 Bi-Pap 50 06/07/19 17:18 78 31 98 Full Face 50 06/07/19 16:00 80 06/07/19 16:00 Bi-pap 06/07/19 16:00 98.1 80 18 135/96 (109) 96 10/20/19 15:31 88 06/07/19 15:11 82 24 99 Full Face 60 82 21 96 Bi-Pap 60 06/07/19 15:10 Bi-Pap 60 06/07/19 13:34 101 28 99 Full Face 60 06/07/19 12:22 106 21 93 Full Face 80 06/07/19 12:00 Bi-pap 06/07/19 12:00 99.6 123 20 99/66 (77) 93 06/07/19 12:00 80 06/07/19 11:44 110 I&O Intake and Output 06/07/19 06/08/19 19:00 07:00 Intake Total 340 ml 730.00 ml Output Total 400 ml Balance 340 ml 330.00 ml Free Water 100 ml 125 ml IV Total 385.00 ml Tube Feeding 240 ml 220 ml Output Urine Total 400 ml Dressing: dry Wound: clean Cardiovascular: RSR Respiratory: clear Abdomen: soft, non-tender, present bowel sounds Extremities: no tenderness, no cyanosis Laboratory Tests Test 06/08/19 03:50 White Blood Count 11.5 K/UL (4.8-10.8) H Red Blood Count 2.92 M/UL (4.70-6.10) L Hemoglobin 9.7 G/DL (14.2-18.0) L Hematocrit 28.1 % (42.0-52.0) L Mean Corpuscular Volume 96 FL (80-99) Mean Corpuscular Hemoglobin 33.2 PG (27.0-31.0) H Mean Corpuscular Hemoglobin Concent 34.5 G/DL (32.0-36.0) Red Cell Distribution Width 12.1 % (11.6-14.8) Platelet Count 516 K/UL (150-450) H Mean Platelet Volume 6.0 FL (6.5-10.1) L Neutrophils (%) (Auto) 72.5 % (45.0-75.0) Lymphocytes (%) (Auto) 18.9 % (20.0-45.0) L Monocytes (%) (Auto) 5.6 % (1.0-10.0) Eosinophils (%) (Auto) 2.2 % (0.0-3.0) Basophils (%) (Auto) 0.8 % (0.0-2.0) Sodium Level 138 MMOL/L (136-145) Potassium Level 3.0 MMOL/L (3.5-5.1) L Chloride Level 105 MMOL/L (98-107) Carbon Dioxide Level 26 MMOL/L (21-32) Anion Gap 7 mmol/L (5-15) Blood Urea Nitrogen 7 mg/dL (7-18) Creatinine 1.0 MG/DL (0.55-1.30) Estimat Glomerular Filtration Rate > 60 mL/min (>60) Glucose Level 101 MG/DL (74-106) Calcium Level 8.8 MG/DL (8.5-10.1) Phosphorus Level 3.7 MG/DL (2.5-4.9) Magnesium Level 2.0 MG/DL (1.8-2.4) Pro-B-Type Natriuretic Peptide 1046 pg/mL (0-125) H Plan Problems: (1) Ulcer of right heel Assessment & Plan: This is a 54-year-old male with multiple medical comorbidities who is currently presented for fever and tachycardia. Patient identified to have abnormal decubitus pressure ulcer on right heel. On examination patient has a stage III full-thickness right heel decubitus ulcer periwound intact but mildly macerated. Surrounding erythema. No drainage. No underlying abscess. No bone palpable. No foul odor. Labs noted and identified. No signs of acute active inflammatory or infectious process from this. Patient does have a leukocytosis that significant. Will continue work-up for etiology Will recommend local wound care. Apply Thera honey followed by up to foam dressing daily. We will monitor. Thank you for this consultation we will follow with recommendations (2) Fever Assessment & Plan: Low-grade fevers, tachycardia, leukocytosis, abnormal labs Head to toe skin integrity and wound eval completed as above UA noted chest x-ray noted Possible aspiration pneumonia Continue antibiotics as per infectious disease IV fluids Patient not eating well and currently DNR/DNI and does not have feeding tube. Will get speech and swallow eval prior to diet (3) Tachycardia (4) Severe sepsis Assessment & Plan: DAILY ESTIMATED NEEDS: Needs based on wound, wasting, pulmonary/ 46kg 30-35 kcals/kg 9025-8203 total kcals 1.3-1.8 g protein/kg 60-83 g total protein 25-30 mL/kg 3145-9560 total fluid mLs NUTRITION DIAGNOSIS: * Swallowing difficulty R/T dysphagia, respiratory status as evidenced by h/o Down's syndrome, pt on pureed texture diet DELI SLICER, currently NPO, on BIPAP. * Increased kcal/prot needs R/T wound healing and wasting as evidenced by pt admitted w/ stage 3 rt heel wound, w/ mild-moderate generalized wasting. CURRENT DIET:NPO PO DIET RECOMMENDATIONS: IF SAFE FOR PO -> liberalized REGULAR/ texture per PIN DRAFTER + Ensure Enlive TID ENTERAL NUTRITION RECOMMENDATIONS: CONSULT RD IF TF PART OF POC AND INDICATED: PER POLST, NO TF AT THIS TIME ADDITIONAL RECOMMENDATIONS: * Calibrated bedscale wt - bedscale wt per RD= 101lbs vs EMR [id number] * Monitor NPO status, ability to feed - PIN DRAFTER eval pending, pt on BIPAP, altered. TF indicates no TF at this time * Monitor lytes, replete as needed * Wound healing: once able to feed-> add MVI w/ min x 1, Vit C 500mg QD -> add ZnSO4 220mg QD x 10 days -> Jeremy 1pkt BID as tolerated Alexis Ruffin Jun 08, 2019 11:14
[2019-06-08 12:00] VITALS: BP 99/40
--- NOTE | 2019-06-08 12:08 | Pulmonology Progress Note ---
Assessment/Plan Problems: (1) Pneumonia (2) Acute and chronic respiratory failure with hypoxia (3) Severe sepsis (4) Fever (5) Down's syndrome (6) Tachycardia (7) Hypothyroid (8) HLD (hyperlipidemia) (9) HTN (hypertension) (10) GERD (gastroesophageal reflux disease) (11) Iron deficiency anemia (12) CHF (congestive heart failure) Assessment/Plan Problem List: 1. HCAP/BLL PNA, likely aspiration 2. Hypercapnic hypoxemic respiratory failure. 3. Down syndrome. 4. Small/mod b effusions 5. HTN & Hyperlipidemia 6. Gastroesophageal reflux disease. 7. Decubitus ulcers. Plan: -NGTF's only when stable off BiPAP -BiPAP 12/5 qhs and prn -Titrate high flow nasal cannula -cont abx per ID -monitor effusions -GENERAL CARGO CLERK recs, VSS, GT not within GOC -DNAR/DNI -Consider palliative care eval -Dispo planning to [facility]UTE or LTACH Case d/w RN Subjective Allergies: Coded Allergies: KETAMINE (Verified Allergy, Unknown, 05/29/19) NSAIDS (NON-STEROIDAL ANTI-INFLAMMA (Verified Allergy, Unknown, 05/29/19) Subjective AFVSS on bipap WCT 11.5 less interactive no cough + SOB Objective Last 24 Hour Vital Signs Date Time Temp Pulse Resp B/P (MAP) Pulse Ox O2 Delivery O2 Flow Rate FiO2 06/08/19 09:25 91 26 96 Full Face 50 06/08/19 08:30 82 24 94 Full Face 50 06/08/19 08:00 Bi-pap 06/08/19 08:00 97.9 89 20 91/41 (58) 95 06/08/19 08:00 40.0 60 06/08/19 07:47 119 06/08/19 07:20 93 22 98 High Flow 40.0 60 95 22 94 06/08/19 07:20 95 Bi-Pap 50 06/08/19 05:13 92 18 96 Full Face 50 06/08/19 04:00 50 06/08/19 04:00 98.5 88 18 121/68 (85) 98 06/08/19 04:00 88 06/08/19 04:00 Bi-pap 06/08/19 03:02 85 22 99 Full Face 50 85 22 99 Bi-Pap 50 06/08/19 02:58 98 Bi-Pap 50 06/08/19 01:18 90 22 98 Full Face 50 06/08/19 00:00 Bi-pap 06/08/19 00:00 98.5 89 18 110/64 (79) 98 06/08/19 00:00 89 06/07/19 23:09 98 Bi-Pap 50 06/07/19 23:08 71 16 99 Full Face 50 73 21 98 Bi-Pap 50 06/07/19 21:13 96 22 96 Full Face 50 06/07/19 20:00 50 06/07/19 20:00 Bi-pap 06/07/19 20:00 91 06/07/19 20:00 98.5 88 20 126/61 (82) 96 06/07/19 19:19 96 Bi-Pap 50 06/07/19 19:18 84 26 95 Full Face 50 76 24 98 Bi-Pap 50 06/07/19 17:18 78 31 98 Full Face 50 06/07/19 16:00 80 06/07/19 16:00 Bi-pap 06/07/19 16:00 98.1 80 18 135/96 (109) 96 06/07/19 15:31 88 06/07/19 15:11 82 24 99 Full Face 60 82 21 96 Bi-Pap 60 06/07/19 15:10 Bi-Pap 60 06/07/19 13:34 101 28 99 Full Face 60 06/07/19 12:22 106 21 93 Full Face 80 Intake and Output 06/07/19 06/08/19 19:00 07:00 Intake Total 340 ml 730.00 ml Output Total 400 ml Balance 340 ml 330.00 ml Free Water 100 ml 125 ml IV Total 385.00 ml Tube Feeding 240 ml 220 ml Output Urine Total 400 ml General Appearance: no acute distress - on BiPAP, cachetic HEENT: normocephalic, atraumatic, anicteric, mucous membranes moist, other - NGT Respiratory/Chest: rhonchi Cardiovascular: normal peripheral pulses, normal rate, regular rhythm Abdomen: normal bowel sounds, soft, non tender, no organomegaly, non distended , no mass Extremities: no cyanosis, no clubbing, no edema Laboratory Tests 06/08/19 03:50: White Blood Count 11.5H, Red Blood Count 2.92L, Hemoglobin 9.7L, Hematocrit 28.1L, Mean Corpuscular Volume 96, Mean Corpuscular Hemoglobin 33.2H, Mean Corpuscular Hemoglobin Concent 34.5, Red Cell Distribution Width 12.1, Platelet Count 516H, Mean Platelet Volume 6.0L, Neutrophils (%) (Auto) 72.5, Lymphocytes (%) (Auto) 18.9L, Monocytes (%) (Auto) 5.6, Eosinophils (%) (Auto) 2.2, Basophils (%) (Auto) 0.8, Sodium Level 138, Potassium Level 3.0L, Chloride Level 105, Carbon Dioxide Level 26, Anion Gap 7, Blood Urea Nitrogen 7, Creatinine 1.0, Estimat Glomerular Filtration Rate > 60, Glucose Level 101, Calcium Level 8.8, Phosphorus Level 3.7, Magnesium Level 2.0, Pro-B-Type Natriuretic Peptide 1046H Current Medications Medications (Trade) Dose Ordered Sig/Kendra Route PRN Reason Start Time Stop Time Status Last Admin Dose Admin Acetaminophen (Tylenol) 650 mg Q6H PRN RECTAL Mild Pain (Pain Scale 1-3) 05/31/19 01:15 06/30/19 01:14 05/31/19 21:17 Acetylcysteine (Mucomyst) 100 mg Q4HRT N 05/31/19 17:00 06/30/19 16:59 06/08/19 07:18 Albuterol/ Ipratropium (Albuterol/ Ipratropium) 3 ml Q4HRT N 06/05/19 19:00 06/12/19 18:59 06/08/19 07:17 Ascorbic Acid (Vitamin C) 500 mg DAILY NG 06/06/19 09:00 07/02/19 08:59 06/08/19 08:28 Bisacodyl (Dulcolax) 10 mg DAILYPRN PRN RECTAL constipation 05/31/19 10:45 06/29/19 10:44 Cyanocobalamin (Vitamin B-12 Tab) 100 mcg DAILY NG 06/05/19 09:00 06/30/19 08:59 06/08/19 08:29 Docusate Sodium (Colace) 100 mg EVERY 12 HOURS NG 06/05/19 21:00 07/05/19 20:59 06/08/19 08:29 Famotidine (Pepcid I.v.) 20 mg Q12HR IVP 05/31/19 09:00 06/30/19 08:59 06/08/19 08:29 Ferrous Sulfate (Feosol) 325 mg DAILY NG 06/05/19 09:00 07/05/19 08:59 06/08/19 08:29 Heparin Sodium (Porcine) (Heparin 5000 units/ml) 5,000 units EVERY 12 HOURS SUBQ 05/31/19 09:00 06/29/19 08:59 06/08/19 08:35 Levothyroxine Sodium (Synthroid) 25 mcg DAILY IV 06/04/19 10:30 07/04/19 10:29 06/08/19 08:34 Midodrine (Pro-Amatine) 5 mg TIDPRN PRN NG SBP<90 06/05/19 15:00 06/29/19 12:59 06/07/19 03:36 Multivitamins (Multivitamins) 1 tab DAILY NG 06/05/19 09:00 07/02/19 08:59 06/08/19 08:28 Piperacillin Sod/ Tazobactam Sod 3.375 gm/Dextrose 110 ml @ 27.5 mls/hr Q8HR IVPB 06/04/19 22:00 06/11/19 05:59 06/08/19 06:13 Vancomycin HCl (Vanco rx to dose) 1 ea DAILY PRN MISC Per rx protocol 06/05/19 18:00 07/04/19 08:14 Vancomycin HCl 750 mg/Sodium Chloride 275 ml @ 183.333 mls/hr Q12H IVPB 06/07/19 11:00 06/12/19 10:59 06/07/19 23:27 Zinc Sulfate (Zinc Sulfate) 220 mg DAILY NG 06/05/19 09:00 06/15/19 08:59 06/08/19 08:29 Yovani Luevano MD Jun 08, 2019 12:08
[2019-06-08] MEDS: Vancomycin 750mg/NS 275ml IVPB SCH ×4 (12:30→22:05)
--- NOTE | 2019-06-08 12:54 | General Progress Note ---
Assessment/Plan Problem List: (1) Severe sepsis ICD Codes: A41.9 - Sepsis, unspecified organism; R65.20 - Severe sepsis without septic shock SNOMED: 30760512 (2) Acute on chronic respiratory failure with hypoxia and hypercapnia ICD Codes: J96.21 - Acute and chronic respiratory failure with hypoxia; J96.22 - Acute and chronic respiratory failure with hypercapnia SNOMED: 81746358643514 (3) Tachycardia ICD Codes: R00.0 - Tachycardia, unspecified SNOMED: 7299600 (4) Fever ICD Codes: R50.9 - Fever, unspecified SNOMED: 096669940 (5) CHF (congestive heart failure) ICD Codes: I50.9 - Heart failure, unspecified SNOMED: 21440615 (6) Iron deficiency anemia ICD Codes: D50.9 - Iron deficiency anemia, unspecified SNOMED: 62271158 (7) GERD (gastroesophageal reflux disease) ICD Codes: K21.9 - Gastro-esophageal reflux disease without esophagitis SNOMED: 166832149 (8) HTN (hypertension) ICD Codes: I10 - Essential (primary) hypertension SNOMED: 88639256 (9) Hypothyroid ICD Codes: E03.9 - Hypothyroidism, unspecified SNOMED: 73754689 (10) Pneumonia ICD Codes: J18.9 - Pneumonia, unspecified organism SNOMED: 464969321 (11) Ulcer of right heel ICD Codes: L97.419 - Non-pressure chronic ulcer of right heel and midfoot with unspecified severity SNOMED: 448478900 Status: not improved, unchanged, deteriorating Assessment/Plan: Dwayne Gibson is a 54 yo man with PMH of Down's syndrome (nonverbal and bedbound at baseline), CHF (unknown EF), HTN, HLD, iron deficiency anemia, hypothyroid, GERD, with JANETTE 1 cm2, and bilateral foot pressure ulcers who presented from [facility] with fever, cough, and hypoxia, found with Tm 100.5, leukocytosis with left shift, and CXR suggestive of possible bilateral infiltrate, admitted for acute on chronic hypoxemic respiratory failure and sepsis 2/2 HCAP. #Acute on chronic hypoxemic/hypercapnic respiratory failure (baseline NC 2-4L) 2 /2 HCAP and right pleural effusion- minimal improvement, last CXR 06/06 #Sepsis 2/2 HCAP - Improving #elevated ESR/CRP #Bilateral pleural effusions > Tm 100.5 on admission, WBC 20.5 with bands, RR to 30s, tachycardic to 130s > Lactate 1.2 > ABG on admission 7.4/39/73/24 > BCX negative to date > F/U sputum CX > ESR 119, CRp 29, osteo of ulcer? > S/p IVF NS 30cc/kg sepsis bolus and gentle continuous D5NS IVF. HL IVF 06/05 given increased PVC on CXR and worsening respiratory failure. > Venous duplex negative for DVT > CXR 06/01/19 with worsening right sided pleural effusion, 06/06 CXR with mild improvement noted and reviewed > CT chest performed showing bilateral pneumonia and moderate pleural effusions >sputum culture: normal shoshana, though after antibiotics initiated - UA not overtly suggestive of UTI > Ct chest noncontrast showing bilateral pleural effusions -Continue IV abx for HCAP with zosyn 4.5gm IV q6hrs (05/30- ) and vancomycin 1gm IV q12hrs (05/29- ) (changed to zosyn to cover potential aspiration/ anaerobes given patient's lethargy). Plan for at least 8 days per ID - Wean oxygen to keep O2 sat >/=92%. Continues to require high oxygen 60 percent FiO2 high flow and intermittent BiPAP - Pulm/crit care consulted, appreciate recs. Nebs scheduled q4hrs with suction q4hrs. - OK for transfer to [facility] vs. subacute - Infectious disease consulted Dr. Serrano. Appreciate recommendations - 8 days of abx - Appreciate general surgery recommendations: Dr. Ruffin - Tylenol 650mg PO q6hrs PRN pain or fever - Duonebs q4hrs ATC -Follow-up on blood cultures - No growth to date #hx HTN but now requiring PRN midodrine at SNF for intermittent hypotension #hx HFpEF (LVEF 55%), with most recent TTE on 05/29/19 showing EF 40-45% #hx #hx HLD - EKG with sinus tachycardia, TWI in lateral leads (no prior in chart for comparison). Troponin negative on admission. Low suspicion for acute ACS - Continue home midodrine 5mg PO TID PRN SBP<90 - Can resume home statin once able to tolerate PO - holding CLARICE-I, Beta Sadiq given intermittent hypotension - Appreciate cardiology recommendations: Dr. Owen - consider spot lasix dose if fluid overload is noted. ( done 06/05 ). Pro-BNP downtrending #Encephalopathy in setting of sepsis and underlying Down's syndrome -appears to be back to baseline - Baseline nonverbal and bedbound - Treat sepsis as above - Limit sedating medications as able #Mild transaminitis - resolved #Hepatitis B surface antigen positive. Appears to have acute hepatitis B infection > Ultrasound unremarkable > Hepatitis IgM core ab positive, surface Ab negative - AST 38 and ALT 100 on admission, - Can resume home statin once able to tolerate PO -Check further hepatitis B serologies, f/u hepatitis B DNA -Will need outpatient hepatotology follow up #Chronic hyponatremia - improving - Na 134 on admission, now 136 - Per records from [facility], Na was 132 on 05/05/19 - Monitor BMP #hx Hypothyroid - TSH 3.7 -Levothyroxine 25 mg IV daily. Will switch to p.o. once patient able to tolerate #hx GERD - Pepcid for home omeprazole #hx iron deficiency anemia - H/H stable - Continue home ferrous sulfate 325mg PO daily #Right heel wound - Present on admission - Appreciate wound care/surgery consult - Wound care as per recs #Dysphasia Supportive ST care and trials as he used to be able to eat 100 % with assistance at [facility] -Discussed with today # Thrombocytosis with platelets of 541,000 most likely reactive. - Monitor #hypokalemia - replete with 40 MEQ KCL PO and 20 MEQ IV today #Goals of care -Discussed with healthcare decision-maker Mr. Sheriff the patient's cousin for 33 minutes on 06/05/19. Discussed goals of care including tube feedings. Mr. Sheriff would like to continue CODE STATUS of DNR/DNI as per the POLST, however he is okay with NG tube feedings temporarily. No PEG -TF started 06/05 FEN IVF: none DVT ppx: Heparin subq GI ppx: Pepcid Code Status: DNR/DNI with limited interventions Diet: Tube feedings, will change to Bolus today (06/08/19) Dispo: LTACH vs. SUBACUTE for continued weaning off of BiPAP Reason for continued hospitalization: Acute hypoxic respiratory failure 37 minutes spent on this encounter. Discussed with pulmonology, RN, logistics account manager , and nutrition. > 50% spent on counseling and care coordination. Time of note may not reflect time patient was seen. Subjective Date patient seen: Jun 08, 2019 ROS Limited/Unobtainable: Yes - Patient nonverbal at baseline Allergies: Coded Allergies: KETAMINE (Verified Allergy, Unknown, 05/29/19) NSAIDS (NON-STEROIDAL ANTI-INFLAMMA (Verified Allergy, Unknown, 05/29/19) Subjective No acute events overnight per nursing. Patient continues to be on and off BiPAP. No other acute events overnight. Vital signs otherwise stable. Further subjective history unable to be obtained as patient is nonverbal Objective Last 24 Hour Vital Signs Date Time Temp Pulse Resp B/P (MAP) Pulse Ox O2 Delivery O2 Flow Rate FiO2 06/08/19 12:33 95 33 97 Full Face 50 06/08/19 12:00 97.9 91 21 99/40 (59) 95 06/08/19 12:00 Bi-pap 06/08/19 12:00 50 06/08/19 09:25 91 26 96 Full Face 50 06/08/19 08:30 82 24 94 Full Face 50 06/08/19 08:00 Bi-pap 06/08/19 08:00 97.9 89 20 91/41 (58) 95 06/08/19 08:00 40.0 60 06/08/19 07:47 119 06/08/19 07:20 93 22 98 High Flow 40.0 60 95 22 94 06/08/19 07:20 95 Bi-Pap 50 06/08/19 05:13 92 18 96 Full Face 50 06/08/19 04:00 50 06/08/19 04:00 98.5 88 18 121/68 (85) 98 06/08/19 04:00 88 06/08/19 04:00 Bi-pap 06/08/19 03:02 85 22 99 Full Face 50 85 22 99 Bi-Pap 50 06/08/19 02:58 98 Bi-Pap 50 06/08/19 01:18 90 22 98 Full Face 50 06/08/19 00:00 Bi-pap 06/08/19 00:00 98.5 89 18 110/64 (79) 98 06/08/19 00:00 89 06/07/19 23:09 98 Bi-Pap 50 06/07/19 23:08 71 16 99 Full Face 50 73 21 98 Bi-Pap 50 06/07/19 21:13 96 22 96 Full Face 50 06/07/19 20:00 50 06/07/19 20:00 Bi-pap 06/07/19 20:00 91 06/07/19 20:00 98.5 88 20 126/61 (82) 96 06/07/19 19:19 96 Bi-Pap 50 06/07/19 19:18 84 26 95 Full Face 50 76 24 98 Bi-Pap 50 06/07/19 17:18 78 31 98 Full Face 50 06/07/19 16:00 80 06/07/19 16:00 Bi-pap 06/07/19 16:00 98.1 80 18 135/96 (109) 96 06/07/19 15:31 88 06/07/19 15:11 82 24 99 Full Face 60 82 21 96 Bi-Pap 60 06/07/19 15:10 Bi-Pap 60 06/07/19 13:34 101 28 99 Full Face 60 Intake and Output 06/07/19 06/08/19 19:00 07:00 Intake Total 340 ml 730.00 ml Output Total 400 ml Balance 340 ml 330.00 ml Free Water 100 ml 125 ml IV Total 385.00 ml Tube Feeding 240 ml 220 ml Output Urine Total 400 ml Laboratory Tests 06/08/19 03:50: White Blood Count 11.5H, Red Blood Count 2.92L, Hemoglobin 9.7L, Hematocrit 28.1L, Mean Corpuscular Volume 96, Mean Corpuscular Hemoglobin 33.2H, Mean Corpuscular Hemoglobin Concent 34.5, Red Cell Distribution Width 12.1, Platelet Count 516H, Mean Platelet Volume 6.0L, Neutrophils (%) (Auto) 72.5, Lymphocytes (%) (Auto) 18.9L, Monocytes (%) (Auto) 5.6, Eosinophils (%) (Auto) 2.2, Basophils (%) (Auto) 0.8, Sodium Level 138, Potassium Level 3.0L, Chloride Level 105, Carbon Dioxide Level 26, Anion Gap 7, Blood Urea Nitrogen 7, Creatinine 1.0, Estimat Glomerular Filtration Rate > 60, Glucose Level 101, Calcium Level 8.8, Phosphorus Level 3.7, Magnesium Level 2.0, Pro-B-Type Natriuretic Peptide 1046H Height (Feet): 5 Height (Inches): 1.00 Weight (Pounds): 104 General Appearance: WD/WN, confused, mild distress EENT: PERRL/EOMI, normal ENT inspection - Nonverbal at baseline Neck: non-tender, normal alignment, supple Cardiovascular: normal peripheral pulses, normal rate, regular rhythm, no JVD Respiratory/Chest: other - Coarse breath sounds bilaterally Abdomen: normal bowel sounds, non tender, soft Extremities: normal range of motion, non-tender, normal inspection Neurologic: hot top liner helper II-XII grossly normal, no motor/sensory deficits, alert, responsive - Nonverbal at baseline Skin: normal pigmentation, warm/dry Joseph Durán D.O. Jun 08, 2019 12:54
--- NOTE | 2019-06-08 14:39 | Cardiac Electrophysiology PN ---
Assessment/Plan Assessment/Plan 1.Supraventricular tachycardia. Hold off on betablocker or CA blockers for hypotension 2. Congestive heart failure with elevated BNP. However, the patient is septic and blood pressure in the borderline, already on midodrine. His ejection fraction on final echo showed EF of 55%. 3. Down syndrome. 4. Respiratory failure. On BIPAP per Dr. Luevano due to pneumonia. 5. Severe sepsis is on broad-spectrum IV antibiotics per Dr. Rand. 6. Hypothyroidism. 7. Iron deficiency anemia. 8. Decubitus ulcer. 9. DNR and DNI DW RN Subjective Subjective In SDU. No SVT or VT. On antibiotics.Was placed on BIPAP for low saturation. Now DNR and DNI Objective Last 24 Hour Vital Signs Date Time Temp Pulse Resp B/P (MAP) Pulse Ox O2 Delivery O2 Flow Rate FiO2 06/08/19 12:33 95 33 97 Full Face 50 06/08/19 12:00 97.9 91 21 99/40 (59) 95 06/08/19 12:00 Bi-pap 06/08/19 12:00 50 06/08/19 09:25 91 26 96 Full Face 50 06/08/19 08:30 82 24 94 Full Face 50 06/08/19 08:00 Bi-pap 06/08/19 08:00 97.9 89 20 91/41 (58) 95 06/08/19 08:00 40.0 60 06/08/19 07:47 119 06/08/19 07:20 93 22 98 High Flow 40.0 60 95 22 94 06/08/19 07:20 95 Bi-Pap 50 06/08/19 05:13 92 18 96 Full Face 50 06/08/19 04:00 50 06/08/19 04:00 98.5 88 18 121/68 (85) 98 06/08/19 04:00 88 06/08/19 04:00 Bi-pap 06/08/19 03:02 85 22 99 Full Face 50 85 22 99 Bi-Pap 50 06/08/19 02:58 98 Bi-Pap 50 06/08/19 01:18 90 22 98 Full Face 50 06/08/19 00:00 Bi-pap 06/08/19 00:00 98.5 89 18 110/64 (79) 98 06/08/19 00:00 89 06/07/19 23:09 98 Bi-Pap 50 06/07/19 23:08 71 16 99 Full Face 50 73 21 98 Bi-Pap 50 06/07/19 21:13 96 22 96 Full Face 50 06/07/19 20:00 50 06/07/19 20:00 Bi-pap 06/07/19 20:00 91 06/07/19 20:00 98.5 88 20 126/61 (82) 96 06/07/19 19:19 96 Bi-Pap 50 06/07/19 19:18 84 26 95 Full Face 50 76 24 98 Bi-Pap 50 06/07/19 17:18 78 31 98 Full Face 50 06/07/19 16:00 80 06/07/19 16:00 Bi-pap 06/07/19 16:00 98.1 80 18 135/96 (109) 96 06/07/19 15:31 88 06/07/19 15:11 82 24 99 Full Face 60 82 21 96 Bi-Pap 60 06/07/19 15:10 Bi-Pap 60 Intake and Output 06/07/19 06/08/19 19:00 07:00 Intake Total 340 ml 730.00 ml Output Total 400 ml Balance 340 ml 330.00 ml Free Water 100 ml 125 ml IV Total 385.00 ml Tube Feeding 240 ml 220 ml Output Urine Total 400 ml Laboratory Tests Test 06/08/19 03:50 White Blood Count 11.5 K/UL (4.8-10.8) H Red Blood Count 2.92 M/UL (4.70-6.10) L Hemoglobin 9.7 G/DL (14.2-18.0) L Hematocrit 28.1 % (42.0-52.0) L Mean Corpuscular Volume 96 FL (80-99) Mean Corpuscular Hemoglobin 33.2 PG (27.0-31.0) H Mean Corpuscular Hemoglobin Concent 34.5 G/DL (32.0-36.0) Red Cell Distribution Width 12.1 % (11.6-14.8) Platelet Count 516 K/UL (150-450) H Mean Platelet Volume 6.0 FL (6.5-10.1) L Neutrophils (%) (Auto) 72.5 % (45.0-75.0) Lymphocytes (%) (Auto) 18.9 % (20.0-45.0) L Monocytes (%) (Auto) 5.6 % (1.0-10.0) Eosinophils (%) (Auto) 2.2 % (0.0-3.0) Basophils (%) (Auto) 0.8 % (0.0-2.0) Sodium Level 138 MMOL/L (136-145) Potassium Level 3.0 MMOL/L (3.5-5.1) L Chloride Level 105 MMOL/L (98-107) Carbon Dioxide Level 26 MMOL/L (21-32) Anion Gap 7 mmol/L (5-15) Blood Urea Nitrogen 7 mg/dL (7-18) Creatinine 1.0 MG/DL (0.55-1.30) Estimat Glomerular Filtration Rate > 60 mL/min (>60) Glucose Level 101 MG/DL (74-106) Calcium Level 8.8 MG/DL (8.5-10.1) Phosphorus Level 3.7 MG/DL (2.5-4.9) Magnesium Level 2.0 MG/DL (1.8-2.4) Pro-B-Type Natriuretic Peptide 1046 pg/mL (0-125) H Objective HEAD AND NECK: Positive JVD. NG-tube in and BIPAP is on LUNGS: Coarse rhonchi. CARDIOVASCULAR: Regular S1 and S2 with no gallop. ABDOMEN: Soft. EXTREMITIES: No pitting edema. Valerio Owen MD Jun 08, 2019 14:38
[2019-06-08 16:00] VITALS: BP 133/49
[2019-06-08] MEDS ORDERED: Tubing IV Secondary IV ONE (16:47)
[2019-06-08] MEDS ORDERED: NS 500ML ONE (16:47)
[2019-06-08] MEDS ORDERED: NS 275ml ONE (16:47)
[2019-06-08 20:00] VITALS: BP 109/55
[2019-06-09] VITALS: BP 96/67
[2019-06-09] MEDS: Albuterol/Ipratropium 3ml neb HHN SCH ×6 (02:45→22:45)
[2019-06-09 04:00] VITALS: BP 90/61
[2019-06-09 04:46] LABS: BASOPHILS % (AUTO) 1.2 % (0.0-2.0); EOSINOPHILS % (AUTO) 2.6 % (0.0-3.0); HEMATOCRIT 29.7 % (42.0-52.0); HEMOGLOBIN 10.2 G/DL (14.2-18.0); LYMPHOCYTES % (AUTO) 15.4 % (20.0-45.0); MEAN CORPUSCULAR VOLUME 96 FL (80-99); MONOCYTES % (AUTO) 5.6 % (1.0-10.0); NEUTROPHILS % (AUTO) 75.2 % (45.0-75.0); PLATELET COUNT 529 K/UL (150-450); RED BLOOD COUNT 3.09 M/UL (4.70-6.10); RED CELL DISTRIBUTION WIDTH 12.3 % (11.6-14.8); WHITE BLOOD COUNT 11.8 K/UL (4.8-10.8)
[2019-06-09] MEDS: Piperacillin/Tazobactam 3.375 GM in D5W 110 ML IVPB SCH ×2 (05:22→14:18)
[2019-06-09 05:27] LABS: ANION GAP 10 mmol/L (5-15); BLOOD UREA NITROGEN 7 mg/dL (7-18); CALCIUM 8.9 MG/DL (8.5-10.1); CARBON DIOXIDE 26 MMOL/L (21-32); CHLORIDE 103 MMOL/L (98-107); CREATININE 1.1 MG/DL (0.55-1.30); PHOSPHORUS 4.1 MG/DL (2.5-4.9); POTASSIUM 3.7 MMOL/L (3.5-5.1); SODIUM 139 MMOL/L (136-145)
[2019-06-09 08:00] VITALS: BP 92/63
--- NOTE | 2019-06-09 08:35 | Diagnostic Imaging Report ---
Indication: Dyspnea Technique: One view of the chest Comparison: 06/06/2019 Findings: Nasogastric tube is again demonstrated. Bilateral interstitial airspace opacities, right basilar dense consolidation, bilateral pleural effusions are unchanged. Impression: Unchanged, over 3 days, findings as above.
[2019-06-09] MEDS: Docusate 100mg/10ml Liq NG SCH ×2 (09:49→20:57)
[2019-06-09] MEDS: Ferrous Sulfate 300 MG/5 ML UDC NG SCH (09:50)
[2019-06-09] MEDS: Zinc Sulfate 220mg cap NG SCH (09:51)
[2019-06-09] MEDS: Ascorbic Acid 500mg tab NG SCH (09:51)
[2019-06-09] MEDS: Vitamin B-12 100mcg tab NG SCH (09:51)
[2019-06-09] MEDS: Heparin 5000 units/ml inj SUBQ SCH ×2 (09:56→20:58)
--- NOTE | 2019-06-09 11:43 | Cardiac Electrophysiology PN ---
Assessment/Plan Assessment/Plan 1.Supraventricular tachycardia. Off betablocker or CA blockers for hypotension 2. Congestive heart failure with elevated BNP. However, the patient is septic and blood pressure in the borderline, already on midodrine. EF of 55%. 3. Down syndrome. 4. Respiratory failure. On BIPAP per Dr. Luevano due to pneumonia. 5. Severe sepsis is on broad-spectrum IV antibiotics per Dr. Rand. 6. Hypothyroidism. 7. Iron deficiency anemia. 8. Decubitus ulcer. 9. DNR and DNI DW RN Subjective Subjective In SDU. No SVT or VT. On antibiotics. BIPAP changed on NRB FM. DNR Objective Last 24 Hour Vital Signs Date Time Temp Pulse Resp B/P (MAP) Pulse Ox O2 Delivery O2 Flow Rate FiO2 06/09/19 10:52 104 26 94 Non-Rebreather 15.0 100 102 26 98 06/09/19 08:00 98.0 98 20 92/63 (73) 96 06/09/19 08:00 102 06/09/19 07:10 104 28 96 Full Face 50 06/09/19 07:00 98 19 95 Bi-Pap 50 98 29 95 06/09/19 07:00 95 Bi-Pap 50 06/09/19 05:04 104 19 97 Full Face 50 06/09/19 04:00 50 06/09/19 04:00 99.8 98 24 90/61 (71) 99 06/09/19 04:00 Bi-pap 06/09/19 04:00 95 06/09/19 02:45 106 19 97 Full Face 50 106 19 97 Bi-Pap 50 06/09/19 01:02 94 22 96 Full Face 50 06/09/19 00:00 94 06/09/19 00:00 50 06/09/19 00:00 99.4 106 26 96/67 (77) 96 06/09/19 00:00 Bi-pap 06/08/19 23:26 92 24 98 Full Face 50 92 24 98 Bi-Pap 50 06/08/19 21:40 87 31 96 Full Face 50 06/08/19 20:00 99.8 98 25 109/55 (73) 97 06/08/19 20:00 Bi-pap 06/08/19 20:00 94 06/08/19 20:00 50 06/08/19 19:32 95 Bi-Pap 50 06/08/19 19:28 96 19 95 Full Face 50 101 19 95 Bi-Pap 50 06/08/19 17:02 106 34 97 Full Face 50 06/08/19 16:00 97.9 112 20 133/49 (77) 96 06/08/19 16:00 50 06/08/19 16:00 Bi-pap 06/08/19 15:52 111 06/08/19 15:02 101 36 96 Full Face 50 06/08/19 12:33 95 33 97 Full Face 50 06/08/19 12:00 97.9 91 21 99/40 (59) 95 06/08/19 12:00 Bi-pap 06/08/19 12:00 50 06/08/19 11:47 84 Intake and Output 06/08/19 06/09/19 19:00 07:00 Intake Total 90 ml 604.166 ml Output Total 400 ml 400 ml Balance -310 ml 204.166 ml Free Water 30 ml 100 ml IV Total 504.166 ml Tube Feeding 60 ml Output Urine Total 400 ml 400 ml # Bowel Movements 3 Laboratory Tests Test 06/09/19 03:20 06/09/19 10:40 White Blood Count 11.8 K/UL (4.8-10.8) H Red Blood Count 3.09 M/UL (4.70-6.10) L Hemoglobin 10.2 G/DL (14.2-18.0) L Hematocrit 29.7 % (42.0-52.0) L Mean Corpuscular Volume 96 FL (80-99) Mean Corpuscular Hemoglobin 33.1 PG (27.0-31.0) H Mean Corpuscular Hemoglobin Concent 34.4 G/DL (32.0-36.0) Red Cell Distribution Width 12.3 % (11.6-14.8) Platelet Count 529 K/UL (150-450) H Mean Platelet Volume 5.9 FL (6.5-10.1) L Neutrophils (%) (Auto) 75.2 % (45.0-75.0) H Lymphocytes (%) (Auto) 15.4 % (20.0-45.0) L Monocytes (%) (Auto) 5.6 % (1.0-10.0) Eosinophils (%) (Auto) 2.6 % (0.0-3.0) Basophils (%) (Auto) 1.2 % (0.0-2.0) Sodium Level 139 MMOL/L (136-145) Potassium Level 3.7 MMOL/L (3.5-5.1) Chloride Level 103 MMOL/L (98-107) Carbon Dioxide Level 26 MMOL/L (21-32) Anion Gap 10 mmol/L (5-15) Blood Urea Nitrogen 7 mg/dL (7-18) Creatinine 1.1 MG/DL (0.55-1.30) Estimat Glomerular Filtration Rate > 60 mL/min (>60) Glucose Level 91 MG/DL (74-106) Calcium Level 8.9 MG/DL (8.5-10.1) Phosphorus Level 4.1 MG/DL (2.5-4.9) Magnesium Level 2.0 MG/DL (1.8-2.4) Vancomycin Level Trough Pending Objective HEAD AND NECK: Positive JVD. NG-tube in and NRB FM is on LUNGS: Coarse rhonchi. CARDIOVASCULAR: Regular S1 and S2 with no gallop. ABDOMEN: Soft. EXTREMITIES: No pitting edema. Valerio Owen MD Jun 09, 2019 11:43
[2019-06-09 12:00] VITALS: BP 101/63
--- NOTE | 2019-06-09 12:04 | Surgery Progress Note ---
Surgery Progress Note Subjective Additional Comments leukocytosis anemia labs noted exam stable Objective Last 24 Hour Vital Signs Date Time Temp Pulse Resp B/P (MAP) Pulse Ox O2 Delivery O2 Flow Rate FiO2 06/09/19 10:52 104 26 94 Non-Rebreather 15.0 100 102 26 98 06/09/19 08:00 98.0 98 20 92/63 (73) 96 06/09/19 08:00 102 06/09/19 07:10 104 28 96 Full Face 50 06/09/19 07:00 98 19 95 Bi-Pap 50 98 29 95 06/09/19 07:00 95 Bi-Pap 50 06/09/19 05:04 104 19 97 Full Face 50 06/09/19 04:00 50 06/09/19 04:00 99.8 98 24 90/61 (71) 99 06/09/19 04:00 Bi-pap 06/09/19 04:00 95 06/09/19 02:45 106 19 97 Full Face 50 106 19 97 Bi-Pap 50 06/09/19 01:02 94 22 96 Full Face 50 06/09/19 00:00 94 06/09/19 00:00 50 06/09/19 00:00 99.4 106 26 96/67 (77) 96 06/09/19 00:00 Bi-pap 06/08/19 23:26 92 24 98 Full Face 50 92 24 98 Bi-Pap 50 06/08/19 21:40 87 31 96 Full Face 50 06/08/19 20:00 99.8 98 25 109/55 (73) 97 06/08/19 20:00 Bi-pap 06/08/19 20:00 94 06/08/19 20:00 50 06/08/19 19:32 95 Bi-Pap 50 06/08/19 19:28 96 19 95 Full Face 50 101 19 95 Bi-Pap 50 06/08/19 17:02 106 34 97 Full Face 50 06/08/19 16:00 97.9 112 20 133/49 (77) 96 06/08/19 16:00 50 06/08/19 16:00 Bi-pap 06/08/19 15:52 111 06/08/19 15:02 101 36 96 Full Face 50 06/08/19 12:33 95 33 97 Full Face 50 I&O Intake and Output 06/08/19 06/09/19 19:00 07:00 Intake Total 90 ml 604.166 ml Output Total 400 ml 400 ml Balance -310 ml 204.166 ml Free Water 30 ml 100 ml IV Total 504.166 ml Tube Feeding 60 ml Output Urine Total 400 ml 400 ml # Bowel Movements 3 Dressing: dry Wound: clean Cardiovascular: RSR Respiratory: clear Abdomen: soft, non-tender, present bowel sounds, non-distended Extremities: no edema, no tenderness Laboratory Tests Test 06/09/19 03:20 06/09/19 10:40 White Blood Count 11.8 K/UL (4.8-10.8) H Red Blood Count 3.09 M/UL (4.70-6.10) L Hemoglobin 10.2 G/DL (14.2-18.0) L Hematocrit 29.7 % (42.0-52.0) L Mean Corpuscular Volume 96 FL (80-99) Mean Corpuscular Hemoglobin 33.1 PG (27.0-31.0) H Mean Corpuscular Hemoglobin Concent 34.4 G/DL (32.0-36.0) Red Cell Distribution Width 12.3 % (11.6-14.8) Platelet Count 529 K/UL (150-450) H Mean Platelet Volume 5.9 FL (6.5-10.1) L Neutrophils (%) (Auto) 75.2 % (45.0-75.0) H Lymphocytes (%) (Auto) 15.4 % (20.0-45.0) L Monocytes (%) (Auto) 5.6 % (1.0-10.0) Eosinophils (%) (Auto) 2.6 % (0.0-3.0) Basophils (%) (Auto) 1.2 % (0.0-2.0) Sodium Level 139 MMOL/L (136-145) Potassium Level 3.7 MMOL/L (3.5-5.1) Chloride Level 103 MMOL/L (98-107) Carbon Dioxide Level 26 MMOL/L (21-32) Anion Gap 10 mmol/L (5-15) Blood Urea Nitrogen 7 mg/dL (7-18) Creatinine 1.1 MG/DL (0.55-1.30) Estimat Glomerular Filtration Rate > 60 mL/min (>60) Glucose Level 91 MG/DL (74-106) Calcium Level 8.9 MG/DL (8.5-10.1) Phosphorus Level 4.1 MG/DL (2.5-4.9) Magnesium Level 2.0 MG/DL (1.8-2.4) Vancomycin Level Trough 28.0 ug/mL (5.0-12.0) H Plan Problems: (1) Ulcer of right heel Assessment & Plan: This is a 54-year-old male with multiple medical comorbidities who is currently presented for fever and tachycardia. Patient identified to have abnormal decubitus pressure ulcer on right heel. On examination patient has a stage III full-thickness right heel decubitus ulcer periwound intact but mildly macerated. Surrounding erythema. No drainage. No underlying abscess. No bone palpable. No foul odor. Labs noted and identified. No signs of acute active inflammatory or infectious process from this. Patient does have a leukocytosis that significant. Will continue work-up for etiology Will recommend local wound care. Apply Thera honey followed by up to foam dressing daily. We will monitor. Thank you for this consultation we will follow with recommendations d/c planning (2) Fever Assessment & Plan: Low-grade fevers, tachycardia, leukocytosis, abnormal labs Head to toe skin integrity and wound eval completed as above UA noted chest x-ray noted Possible aspiration pneumonia Continue antibiotics as per infectious disease IV fluids Patient not eating well and currently DNR/DNI and does not have feeding tube. Will get speech and swallow eval prior to diet (3) Tachycardia (4) Severe sepsis Assessment & Plan: DAILY ESTIMATED NEEDS: Needs based on wound, wasting, pulmonary/ 46kg 30-35 kcals/kg 0244-0504 total kcals 1.3-1.8 g protein/kg 60-83 g total protein 25-30 mL/kg 6135-0825 total fluid mLs NUTRITION DIAGNOSIS: * Swallowing difficulty R/T dysphagia, respiratory status as evidenced by h/o Down's syndrome, pt on pureed texture diet FRUIT PRESS OPERATOR, currently NPO, on BIPAP. * Increased kcal/prot needs R/T wound healing and wasting as evidenced by pt admitted w/ stage 3 rt heel wound, w/ mild-moderate generalized wasting. CURRENT DIET:NPO PO DIET RECOMMENDATIONS: IF SAFE FOR PO -> liberalized REGULAR/ texture per MOTTLER OPERATOR + Ensure Enlive TID ENTERAL NUTRITION RECOMMENDATIONS: CONSULT RD IF TF PART OF POC AND INDICATED: PER POLST, NO TF AT THIS TIME ADDITIONAL RECOMMENDATIONS: * Calibrated bedscale wt - bedscale wt per RD= 101lbs vs EMR [id number] * Monitor NPO status, ability to feed - MOTTLER OPERATOR eval pending, pt on BIPAP, altered. TF indicates no TF at this time * Monitor lytes, replete as needed * Wound healing: once able to feed-> add MVI w/ min x 1, Vit C 500mg QD -> add ZnSO4 220mg QD x 10 days -> Jeremy 1pkt BID as tolerated Alexis Ruffin Jun 09, 2019 12:04
--- NOTE | 2019-06-09 12:06 | General Progress Note ---
Assessment/Plan Problem List: (1) Severe sepsis ICD Codes: A41.9 - Sepsis, unspecified organism; R65.20 - Severe sepsis without septic shock SNOMED: 37638349 (2) Acute on chronic respiratory failure with hypoxia and hypercapnia ICD Codes: J96.21 - Acute and chronic respiratory failure with hypoxia; J96.22 - Acute and chronic respiratory failure with hypercapnia SNOMED: 40892108648390 (3) Tachycardia ICD Codes: R00.0 - Tachycardia, unspecified SNOMED: 0187171 (4) Fever ICD Codes: R50.9 - Fever, unspecified SNOMED: 496154170 (5) CHF (congestive heart failure) ICD Codes: I50.9 - Heart failure, unspecified SNOMED: 87200562 (6) Iron deficiency anemia ICD Codes: D50.9 - Iron deficiency anemia, unspecified SNOMED: 95877030 (7) GERD (gastroesophageal reflux disease) ICD Codes: K21.9 - Gastro-esophageal reflux disease without esophagitis SNOMED: 418100323 (8) HTN (hypertension) ICD Codes: I10 - Essential (primary) hypertension SNOMED: 13114760 (9) Hypothyroid ICD Codes: E03.9 - Hypothyroidism, unspecified SNOMED: 87821460 (10) Pneumonia ICD Codes: J18.9 - Pneumonia, unspecified organism SNOMED: 332794277 (11) Ulcer of right heel ICD Codes: L97.419 - Non-pressure chronic ulcer of right heel and midfoot with unspecified severity SNOMED: 566904609 Status: not improved, unchanged, deteriorating Assessment/Plan: Dwayne Gibson is a 54 yo man with PMH of Down's syndrome (nonverbal and bedbound at baseline), CHF (unknown EF), HTN, HLD, iron deficiency anemia, hypothyroid, GERD, with JANETTE 1 cm2, and bilateral foot pressure ulcers who presented from [facility] with fever, cough, and hypoxia, found with Tm 100.5, leukocytosis with left shift, and CXR suggestive of possible bilateral infiltrate, admitted for acute on chronic hypoxemic respiratory failure and sepsis 2/2 HCAP. #Acute on chronic hypoxemic/hypercapnic respiratory failure (baseline NC 2-4L) 2 /2 HCAP and right pleural effusion- minimal improvement, last CXR 06/06 - Some improvement today, off of BiPAP this AM #Sepsis 2/2 HCAP - Improving #elevated ESR/CRP #Bilateral pleural effusions > Tm 100.5 on admission, WBC 20.5 with bands, RR to 30s, tachycardic to 130s > Lactate 1.2 > ABG on admission 7.4/39/73/24 > BCX negative to date > F/U sputum CX > ESR 119, CRp 29, osteo of ulcer? > S/p IVF NS 30cc/kg sepsis bolus and gentle continuous D5NS IVF. HL IVF 06/05 given increased PVC on CXR and worsening respiratory failure. > Venous duplex negative for DVT > CXR 06/01/19 with worsening right sided pleural effusion, 06/06 CXR with mild improvement noted and reviewed > CT chest performed showing bilateral pneumonia and moderate pleural effusions >sputum culture: normal shoshana, though after antibiotics initiated - UA not overtly suggestive of UTI > Ct chest noncontrast showing bilateral pleural effusions -Continue IV abx for HCAP with zosyn 4.5gm IV q6hrs (05/30- ) and vancomycin 1gm IV q12hrs (05/29- ) (changed to zosyn to cover potential aspiration/ anaerobes given patient's lethargy). Continue abx, day 9. - Wean oxygen to keep O2 sat >/=92%. Continues intermittent BiPAP and nonrebreather - Pulm/crit care consulted, appreciate recs. Nebs scheduled q4hrs with suction q4hrs. - OK for transfer to [facility] vs. subacute - Infectious disease consulted Dr. Serrano. Appreciate recommendations - 8 days of abx - Appreciate general surgery recommendations: Dr. Ruffin - Tylenol 650mg PO q6hrs PRN pain or fever - Duonebs q4hrs ATC -Follow-up on blood cultures - No growth to date #skin breakdown around nares bilaterally from patient movement of HFNC -Discontinue high flow nasal cannula - wound care consult - nonrebreather or simple mask to avoid further skin breakdown #hx HTN but now requiring PRN midodrine at SNF for intermittent hypotension #hx HFpEF (LVEF 55%), with most recent TTE on 05/29/19 showing EF 40-45% #hx #hx HLD - EKG with sinus tachycardia, TWI in lateral leads (no prior in chart for comparison). Troponin negative on admission. Low suspicion for acute ACS - Continue home midodrine 5mg PO TID PRN SBP<90 - Can resume home statin once able to tolerate PO - holding CLARICE-I, Beta Sadiq given intermittent hypotension - Appreciate cardiology recommendations: Dr. Owen - consider spot lasix dose if fluid overload is noted. ( done 06/05 ). Pro-BNP downtrending #Encephalopathy in setting of sepsis and underlying Down's syndrome -appears to be back to baseline - Baseline nonverbal and bedbound - Treat sepsis as above - Limit sedating medications as able #Mild transaminitis - resolved #Hepatitis B surface antigen positive. Appears to have acute hepatitis B infection > Ultrasound unremarkable > Hepatitis IgM core ab positive, surface Ab negative - AST 38 and ALT 100 on admission, - Can resume home statin once able to tolerate PO -Check further hepatitis B serologies, f/u hepatitis B DNA -Will need outpatient hepatotology follow up #Chronic hyponatremia - improving - Na 134 on admission, now 136 - Per records from SNF, Na was 132 on 05/05/19 - Monitor BMP #hx Hypothyroid - TSH 3.7 -Levothyroxine 25 mg IV daily. Will switch to p.o. once patient able to tolerate #hx GERD - Pepcid for home omeprazole #hx iron deficiency anemia - H/H stable - Continue home ferrous sulfate 325mg PO daily #Right heel wound - Present on admission - Appreciate wound care/surgery consult - Wound care as per recs #Dysphasia Supportive ST care and trials as he used to be able to eat 100 % with assistance at SNF -Appreciate ST recommendations # Thrombocytosis with platelets of 541,000 most likely reactive. - Monitor #hypokalemia - replete with 40 MEQ KCL PO and 20 MEQ IV today #Goals of care -Discussed with healthcare decision-maker Mr. Sheriff the patient's cousin for 33 minutes on 06/05/19. Discussed goals of care including tube feedings. Mr. Sheriff would like to continue CODE STATUS of DNR/DNI as per the POLST, however he is okay with NG tube feedings temporarily. No PEG -TF started 06/05 FEN IVF: none DVT ppx: Heparin subq GI ppx: Pepcid Code Status: DNR/DNI with limited interventions, no PEG Diet: Tube feedings, Bolus since 06/08/19 Dispo: LTACH vs. SUBACUTE for continued weaning off of BiPAP Reason for continued hospitalization: Acute hypoxic respiratory failure 36 minutes spent on this encounter. Discussed with pulmonology, RN, plant production manager and ST. > 50% spent on counseling and care coordination. Time of note may not reflect time patient was seen. Subjective Date patient seen: Jun 09, 2019 Constitutional: Denies: chills, diaphoresis, fever, malaise, weakness, other HEENT: Denies: eye pain, blurred vision, tearing, double vision, ear pain, ear discharge, nose pain, nose congestion, throat pain, throat swelling, mouth pain , mouth swelling, other Cardiovascular: Denies: chest pain, edema, irregular heart rate, lightheadedness, palpitations, syncope, other Respiratory: Denies: cough, orthopnea, shortness of breath, SOB with excertion , SOB at rest, sputum, stridor, wheezing, other Gastrointestinal/Abdominal: Denies: abdomen distended, abdominal pain, black stools, tarry stools, blood in stool, constipated, diarrhea, difficulty swallowing, nausea, poor appetite, poor fluid intake, rectal bleeding, vomiting , other Genitourinary: Denies: burning, discharge, frequency, flank pain, hematuria, incontinence, pain, urgency, other Neurologic/Psychiatric: Denies: anxiety, depressed, emotional problems, headache, numbness, paresthesia, pre-existing deficit, seizure, tingling, tremors, weakness, other Endocrine: Denies: excessive sweating, flushing, intolerance to cold, intolerance to heat, increased hunger, increased thirst, increased urine, unexplained weight gain, unexplained weight loss, other Hematologic/Lymphatic: Denies: anemia, easy bleeding, easy bruising, other Allergies: Coded Allergies: KETAMINE (Verified Allergy, Unknown, 05/29/19) NSAIDS (NON-STEROIDAL ANTI-INFLAMMA (Verified Allergy, Unknown, 05/29/19) Subjective No acute events overnight per nursing. Patient off of BiPAP this morning. Has some skin breakdown around the nose. Transition to nonrebreather and saturating well. Other vital signs stable. No other acute events. Further subjective history unable to be obtained as patient is nonverbal Objective Last 24 Hour Vital Signs Date Time Temp Pulse Resp B/P (MAP) Pulse Ox O2 Delivery O2 Flow Rate FiO2 06/09/19 10:52 104 26 94 Non-Rebreather 15.0 100 102 26 98 06/09/19 08:00 98.0 98 20 92/63 (73) 96 06/09/19 08:00 102 06/09/19 07:10 104 28 96 Full Face 50 06/09/19 07:00 98 19 95 Bi-Pap 50 98 29 95 06/09/19 07:00 95 Bi-Pap 50 06/09/19 05:04 104 19 97 Full Face 50 06/09/19 04:00 50 06/09/19 04:00 99.8 98 24 90/61 (71) 99 06/09/19 04:00 Bi-pap 06/09/19 04:00 95 06/09/19 02:45 106 19 97 Full Face 50 106 19 97 Bi-Pap 50 06/09/19 01:02 94 22 96 Full Face 50 06/09/19 00:00 94 06/09/19 00:00 50 06/09/19 00:00 99.4 106 26 96/67 (77) 96 06/09/19 00:00 Bi-pap 06/08/19 23:26 92 24 98 Full Face 50 92 24 98 Bi-Pap 50 06/08/19 21:40 87 31 96 Full Face 50 06/08/19 20:00 99.8 98 25 109/55 (73) 97 06/08/19 20:00 Bi-pap 06/08/19 20:00 94 06/08/19 20:00 50 06/08/19 19:32 95 Bi-Pap 50 06/08/19 19:28 96 19 95 Full Face 50 101 19 95 Bi-Pap 50 06/08/19 17:02 106 34 97 Full Face 50 06/08/19 16:00 97.9 112 20 133/49 (77) 96 06/08/19 16:00 50 06/08/19 16:00 Bi-pap 06/08/19 15:52 111 06/08/19 15:02 101 36 96 Full Face 50 06/08/19 12:33 95 33 97 Full Face 50 Intake and Output 06/08/19 06/09/19 19:00 07:00 Intake Total 90 ml 604.166 ml Output Total 400 ml 400 ml Balance -310 ml 204.166 ml Free Water 30 ml 100 ml IV Total 504.166 ml Tube Feeding 60 ml Output Urine Total 400 ml 400 ml # Bowel Movements 3 Laboratory Tests 06/09/19 03:20: White Blood Count 11.8H, Red Blood Count 3.09L, Hemoglobin 10.2L, Hematocrit 29.7L, Mean Corpuscular Volume 96, Mean Corpuscular Hemoglobin 33.1H, Mean Corpuscular Hemoglobin Concent 34.4, Red Cell Distribution Width 12.3, Platelet Count 529H, Mean Platelet Volume 5.9L, Neutrophils (%) (Auto) 75.2H, Lymphocytes (%) (Auto) 15.4L, Monocytes (%) (Auto) 5.6, Eosinophils (%) (Auto) 2.6, Basophils (%) (Auto) 1.2, Sodium Level 139, Potassium Level 3.7, Chloride Level 103, Carbon Dioxide Level 26, Anion Gap 10, Blood Urea Nitrogen 7, Creatinine 1.1, Estimat Glomerular Filtration Rate > 60, Glucose Level 91, Calcium Level 8.9, Phosphorus Level 4.1, Magnesium Level 2.0 06/09/19 10:40: Vancomycin Level Trough 28.0H Height (Feet): 5 Height (Inches): 1.00 Weight (Pounds): 104 General Appearance: WD/WN, no apparent distress, alert EENT: PERRL/EOMI, other - With some skin breakdown around her nares bilaterally Neck: non-tender, normal alignment, supple Cardiovascular: normal peripheral pulses, normal rate, regular rhythm, no JVD Respiratory/Chest: chest wall non-tender, other - Coarse breath sounds bilaterally, no wheezing. Abdomen: normal bowel sounds, non tender, soft, no organomegaly, no mass Genitourinary/Rectal: normal genital exam Extremities: normal range of motion, non-tender, normal inspection, other - No lower extremity edema bilaterally Neurologic: aircraft instrument tester II-XII grossly normal, no motor/sensory deficits, alert, responsive Skin: normal pigmentation, warm/dry, other - See Joseph Gomez D.O. Jun 09, 2019 12:06
--- NOTE | 2019-06-09 14:47 | Pulmonology Progress Note ---
Assessment/Plan Problems: (1) Pneumonia (2) Acute and chronic respiratory failure with hypoxia (3) Severe sepsis (4) Fever (5) Down's syndrome (6) Tachycardia (7) Hypothyroid (8) HLD (hyperlipidemia) (9) HTN (hypertension) (10) GERD (gastroesophageal reflux disease) (11) Iron deficiency anemia (12) CHF (congestive heart failure) Assessment/Plan Problem List: 1. HCAP/BLL PNA, likely aspiration 2. Hypercapnic hypoxemic respiratory failure. 3. Down syndrome. 4. Small/mod b effusions 5. HTN & Hyperlipidemia 6. Gastroesophageal reflux disease. 7. Decubitus ulcers. Plan: -NGTF's only when stable off BiPAP -BiPAP 12/5 qhs and prn -Titrate NRBFM -cont abx per ID -monitor effusions -SHAPE CARVER recs, VSS, GT not within GOC -DNAR/DNI -Consider palliative care eval -Dispo planning to [facility] or LTACH Case d/w RN Subjective Allergies: Coded Allergies: KETAMINE (Verified Allergy, Unknown, 05/29/19) NSAIDS (NON-STEROIDAL ANTI-INFLAMMA (Verified Allergy, Unknown, 05/29/19) Subjective AFVSS on NRBFM HF taken off 2/2 epistaxis and nasal crusting CXR unchanged not interactive no cough + SOB Objective Last 24 Hour Vital Signs Date Time Temp Pulse Resp B/P (MAP) Pulse Ox O2 Delivery O2 Flow Rate FiO2 06/09/19 14:09 95 20 95 Non-Rebreather 15.0 100 85 22 99 06/09/19 12:00 99.8 111 24 101/63 (76) 98 06/09/19 12:00 Bi-pap 06/09/19 12:00 112 06/09/19 12:00 15.0 100 06/09/19 10:52 104 26 94 Non-Rebreather 15.0 100 102 26 98 06/09/19 08:00 98.0 98 20 92/63 (73) 96 06/09/19 08:00 Bi-pap 06/09/19 08:00 40.0 60 06/09/19 08:00 102 06/09/19 07:10 104 28 96 Full Face 50 06/09/19 07:00 98 19 95 Bi-Pap 50 98 29 95 06/09/19 07:00 95 Bi-Pap 50 10/22/19 05:04 104 19 97 Full Face 50 06/09/19 04:00 50 06/09/19 04:00 99.8 98 24 90/61 (71) 99 06/09/19 04:00 Bi-pap 06/09/19 04:00 95 06/09/19 02:45 106 19 97 Full Face 50 106 19 97 Bi-Pap 50 06/09/19 01:02 94 22 96 Full Face 50 06/09/19 00:00 94 06/09/19 00:00 50 06/09/19 00:00 99.4 106 26 96/67 (77) 96 06/09/19 00:00 Bi-pap 06/08/19 23:26 92 24 98 Full Face 50 92 24 98 Bi-Pap 50 06/08/19 21:40 87 31 96 Full Face 50 06/08/19 20:00 99.8 98 25 109/55 (73) 97 06/08/19 20:00 Bi-pap 06/08/19 20:00 94 06/08/19 20:00 50 06/08/19 19:32 95 Bi-Pap 50 06/08/19 19:28 96 19 95 Full Face 50 101 19 95 Bi-Pap 50 06/08/19 17:02 106 34 97 Full Face 50 06/08/19 16:00 97.9 112 20 133/49 (77) 96 06/08/19 16:00 50 06/08/19 16:00 Bi-pap 06/08/19 15:52 111 06/08/19 15:02 101 36 96 Full Face 50 Intake and Output 06/08/19 06/09/19 19:00 07:00 Intake Total 90 ml 604.166 ml Output Total 400 ml 400 ml Balance -310 ml 204.166 ml Free Water 30 ml 100 ml IV Total 504.166 ml Tube Feeding 60 ml Output Urine Total 400 ml 400 ml # Bowel Movements 3 General Appearance: no acute distress, cachetic HEENT: normocephalic, atraumatic, other - on BiPAP Respiratory/Chest: rhonchi Cardiovascular: normal peripheral pulses, normal rate, regular rhythm Abdomen: normal bowel sounds, soft, non tender, no organomegaly, non distended , no mass Extremities: no cyanosis, no clubbing, no edema Laboratory Tests 06/09/19 03:20: White Blood Count 11.8H, Red Blood Count 3.09L, Hemoglobin 10.2L, Hematocrit 29.7L, Mean Corpuscular Volume 96, Mean Corpuscular Hemoglobin 33.1H, Mean Corpuscular Hemoglobin Concent 34.4, Red Cell Distribution Width 12.3, Platelet Count 529H, Mean Platelet Volume 5.9L, Neutrophils (%) (Auto) 75.2H, Lymphocytes (%) (Auto) 15.4L, Monocytes (%) (Auto) 5.6, Eosinophils (%) (Auto) 2.6, Basophils (%) (Auto) 1.2, Sodium Level 139, Potassium Level 3.7, Chloride Level 103, Carbon Dioxide Level 26, Anion Gap 10, Blood Urea Nitrogen 7, Creatinine 1.1, Estimat Glomerular Filtration Rate > 60, Glucose Level 91, Calcium Level 8.9, Phosphorus Level 4.1, Magnesium Level 2.0 06/09/19 10:40: Vancomycin Level Trough 28.0H Current Medications Medications (Trade) Dose Ordered Sig/Kendra Route PRN Reason Start Time Stop Time Status Last Admin Dose Admin Acetaminophen (Tylenol) 650 mg Q6H PRN RECTAL Mild Pain (Pain Scale 1-3) 05/31/19 01:15 06/30/19 01:14 05/31/19 21:17 Acetylcysteine (Mucomyst) 100 mg Q4HRT [facility] 05/31/19 17:00 06/30/19 16:59 06/09/19 14:08 Albuterol/ Ipratropium (Albuterol/ Ipratropium) 3 ml Q4HRT [facility] 06/05/19 19:00 06/12/19 18:59 06/09/19 14:09 Ascorbic Acid (Vitamin C) 500 mg DAILY NG 06/06/19 09:00 07/02/19 08:59 06/09/19 09:51 Bisacodyl (Dulcolax) 10 mg DAILYPRN PRN RECTAL constipation 05/31/19 10:45 06/29/19 10:44 Cyanocobalamin (Vitamin B-12 Tab) 100 mcg DAILY NG 06/05/19 09:00 06/30/19 08:59 06/09/19 09:51 Docusate Sodium (Colace) 100 mg EVERY 12 HOURS NG 06/05/19 21:00 07/05/19 20:59 06/09/19 09:49 Famotidine (Pepcid I.v.) 20 mg Q12HR IVP 05/31/19 09:00 06/30/19 08:59 06/09/19 09:49 Ferrous Sulfate (Feosol) 325 mg DAILY NG 06/05/19 09:00 07/05/19 08:59 06/09/19 09:50 Heparin Sodium (Porcine) (Heparin 5000 units/ml) 5,000 units EVERY 12 HOURS SUBQ 05/31/19 09:00 06/29/19 08:59 06/09/19 09:56 Levothyroxine Sodium (Synthroid) 25 mcg DAILY IV 06/04/19 10:30 07/04/19 10:29 06/09/19 09:51 Midodrine (Pro-Amatine) 5 mg TIDPRN PRN NG SBP<90 06/05/19 15:00 06/29/19 12:59 06/07/19 03:36 Multivitamins (Multivitamins) 1 tab DAILY NG 06/05/19 09:00 07/02/19 08:59 06/09/19 09:51 Piperacillin Sod/ Tazobactam Sod 3.375 gm/Dextrose 110 ml @ 27.5 mls/hr Q8HR IVPB 06/04/19 22:00 06/11/19 05:59 06/09/19 14:18 Vancomycin HCl (Vanco rx to dose) 1 ea DAILY PRN MISC Per rx protocol 06/05/19 18:00 07/04/19 08:14 Zinc Sulfate (Zinc Sulfate) 220 mg DAILY NG 06/05/19 09:00 06/15/19 08:59 06/09/19 09:51 Yovani Luevano MD Jun 09, 2019 14:47
[2019-06-09 16:00] VITALS: BP 136/68
[2019-06-09] MEDS: Acetaminophen 650 MG SUPP RECTAL PRN (16:19)
--- NOTE | 2019-06-09 17:39 | Infectious Diseases Prog Note ---
Assessment/Plan Assessment/Plan ASSESSMENT AND PLAN: 1. aspiration pna/HCAP, sepsis, leukocytosis, fevers, sirs, sob, bipap recurrent fevers - ? new nosocomial infection, fungemia risk - change abx to meropenem, vancomycin, amikacin, diflucan - reculture patient, f/u labs and chest x-ray - see multiple orders and change in abx - monitor clinically, on bipap - skin care per protocol 2. Hypoxic. Continue treatment per Pulmonary Medicine. The patient is on a breathing mask. 3. Right heel wound was noted. He has been seen by Surgery. Upon reviewing the Surgery note, it does not seem to be acutely infected. Continue wound care per Surgery. 4. The patient has history of Down syndrome. 5. Nonverbal. 6. Hypothyroidism. Continue thyroid supplementation. 7. Hypertension. Continue blood pressure treatment per primary care team. 8. Congestive heart failure. 9. Hyperlipidemia. 10. Anemia. 11. Gastroesophageal reflux disease. 12. . 13. Hypoxia. 14. Breathing mask. 15. Wound care protocol. Continue wound treatment per protocol. 16. Allergies to ketamine and NSAIDs. 17. Social history is negative. 18. Family history is noncontributory. 19. MAR is noted. 20. Case was discussed with RN. 21. Case was discussed with Dr. Durán. 22. mrsa and vre colonization Subjective Constitutional: Reports: fever, fatigue, other - opens eyes, on bipap, + sob HEENT: Reports: congestion Respiratory: Reports: shortness of breath Cardiovascular: Denies: chest pain Gastrointestinal/Abdominal: Denies: nausea, vomiting, diarrhea Genitourinary: Reports: other - + jones Neurologic: Reports: weakness, other - no change in mental status Psychiatric: Reports: other - NA Skin: Denies: rash Hematologic: Denies: bleeding Musculoskeletal: Denies: pain Allergies: Coded Allergies: KETAMINE (Verified Allergy, Unknown, 05/29/19) NSAIDS (NON-STEROIDAL ANTI-INFLAMMA (Verified Allergy, Unknown, 05/29/19) Objective Vital Signs Last 24 Hour Vital Signs Date Time Temp Pulse Resp B/P (MAP) Pulse Ox O2 Delivery O2 Flow Rate FiO2 06/09/19 16:49 99.0 06/09/19 16:00 15.0 100 06/09/19 16:00 142 06/09/19 16:00 101.7 123 25 136/68 (90) 95 06/09/19 16:00 Bi-pap 06/09/19 14:09 95 20 95 Non-Rebreather 15.0 100 85 22 99 06/09/19 12:00 99.8 111 24 101/63 (76) 98 06/09/19 12:00 Bi-pap 06/09/19 12:00 112 06/09/19 12:00 15.0 100 06/09/19 10:52 104 26 94 Non-Rebreather 15.0 100 102 26 98 06/09/19 08:00 98.0 98 20 92/63 (73) 96 06/09/19 08:00 Bi-pap 06/09/19 08:00 40.0 60 06/09/19 08:00 102 06/09/19 07:10 104 28 96 Full Face 50 06/09/19 07:00 98 19 95 Bi-Pap 50 98 29 95 06/09/19 07:00 95 Bi-Pap 50 06/09/19 05:04 104 19 97 Full Face 50 06/09/19 04:00 50 06/09/19 04:00 99.8 98 24 90/61 (71) 99 06/09/19 04:00 Bi-pap 06/09/19 04:00 95 06/09/19 02:45 106 19 97 Full Face 50 106 19 97 Bi-Pap 50 06/09/19 01:02 94 22 96 Full Face 50 06/09/19 00:00 94 06/09/19 00:00 50 06/09/19 00:00 99.4 106 26 96/67 (77) 96 06/09/19 00:00 Bi-pap 06/08/19 23:26 92 24 98 Full Face 50 92 24 98 Bi-Pap 50 06/08/19 21:40 87 31 96 Full Face 50 06/08/19 20:00 99.8 98 25 109/55 (73) 97 06/08/19 20:00 Bi-pap 06/08/19 20:00 94 06/08/19 20:00 50 06/08/19 19:32 95 Bi-Pap 50 06/08/19 19:28 96 19 95 Full Face 50 101 19 95 Bi-Pap 50 Height (Feet): 5 Height (Inches): 1.00 Weight (Pounds): 104 General Appearance: other - sob, bipap, + fevers HEENT: normocephalic, atraumatic, anicteric, supple, no JVD Respiratory/Chest: crackles/rales, rhonchi - bilaterally Cardiovascular: regular rhythm, no gallop/murmur, no JVD, tachycardia Abdomen: normal bowel sounds, soft, non tender, no organomegaly, non distended Genitourinary: other - + jones - urine cloudy Extremities: no cyanosis Skin: no rash 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 Most likely on the basis of pulmonary edema; other etiologies including inflammatory also possible. Posterior reticular opacities and nodular airspace opacities, could indicate active inflammatory changes or airspace edema Minimal pericardial thickening or fluid Mild diffuse esophageal wall thickening, could indicate esophagitis. Correlate with clinical findings Chest x-ray - 06/03/19 - Procedure: XRAY Chest 1v Indication: Shortness of breath Technique: One view of the chest Comparison: 2018 Findings: Body habitus limits evaluation. There is diffuse bilateral interstitial and airspace disease, increased from the previous exam. There is persistent right greater than left pleural fluid Impression: Worsening of bilateral interstitial and airspace edema, since prior study of 2 days earlier Chest x-ray - 06/06/19 - COMPARISON: Chest x-ray, 06 03 19 FINDINGS: Lungs: Interstitial thickening and airspace opacities bilaterally have moderately improved. Somewhat worsening right lower lung airspace opacities. Pleural space: Small bilateral pleural effusions, worse on the right, similar to prior study. Left costophrenic angle not on the [id number]. No pneumothorax. Heart: Unremarkable. No cardiomegaly. Mediastinum: Unremarkable. Bones joints: Thoracolumbar scoliosis. Tubes, lines and devices: NG tube traverses the diaphragm. IMPRESSION: 1. Interstitial thickening and airspace opacities bilaterally have moderately improved. Somewhat worsening right lower lung airspace opacities, somewhat consolidative. 2. Small bilateral pleural effusions, worse on the right, similar to prior study. Left costophrenic angle not on the [id number]. Chest x-ray - 06/09/19 - Procedure: XRAY Chest 1v Indication: Dyspnea Technique: One view of the chest Comparison: 06/06/2019 Findings: Nasogastric tube is again demonstrated. Bilateral interstitial airspace opacities, right basilar dense consolidation, bilateral pleural effusions are unchanged. Impression: Unchanged, over 3 days, findings as above. Microbiology Date/Time Source Procedure Growth Status 05/29/19 18:40 Blood Blood Culture - Final NO GROWTH AFTER 5 DAYS Complete 06/01/19 14:00 Sputum Gram Stain - Final Complete 06/01/19 14:00 Sputum Sputum Culture - Final NORMAL UPPER RESPIRATORY ANAMARIA PRESENT Complete 05/29/19 21:00 Rectum - Final NO CARBAPENEM-RESISTANT ENTEROBACTERI... Complete Laboratory Tests Test 06/09/19 03:20 06/09/19 10:40 White Blood Count 11.8 K/UL (4.8-10.8) H Red Blood Count 3.09 M/UL (4.70-6.10) L Hemoglobin 10.2 G/DL (14.2-18.0) L Hematocrit 29.7 % (42.0-52.0) L Mean Corpuscular Volume 96 FL (80-99) Mean Corpuscular Hemoglobin 33.1 PG (27.0-31.0) H Mean Corpuscular Hemoglobin Concent 34.4 G/DL (32.0-36.0) Red Cell Distribution Width 12.3 % (11.6-14.8) Platelet Count 529 K/UL (150-450) H Mean Platelet Volume 5.9 FL (6.5-10.1) L Neutrophils (%) (Auto) 75.2 % (45.0-75.0) H Lymphocytes (%) (Auto) 15.4 % (20.0-45.0) L Monocytes (%) (Auto) 5.6 % (1.0-10.0) Eosinophils (%) (Auto) 2.6 % (0.0-3.0) Basophils (%) (Auto) 1.2 % (0.0-2.0) Sodium Level 139 MMOL/L (136-145) Potassium Level 3.7 MMOL/L (3.5-5.1) Chloride Level 103 MMOL/L (98-107) Carbon Dioxide Level 26 MMOL/L (21-32) Anion Gap 10 mmol/L (5-15) Blood Urea Nitrogen 7 mg/dL (7-18) Creatinine 1.1 MG/DL (0.55-1.30) Estimat Glomerular Filtration Rate > 60 mL/min (>60) Glucose Level 91 MG/DL (74-106) Calcium Level 8.9 MG/DL (8.5-10.1) Phosphorus Level 4.1 MG/DL (2.5-4.9) Magnesium Level 2.0 MG/DL (1.8-2.4) Vancomycin Level Trough 28.0 ug/mL (5.0-12.0) H Current Medications Medications (Trade) Dose Ordered Sig/Kendra Route PRN Reason Start Time Stop Time Status Last Admin Dose Admin Acetaminophen (Tylenol) 650 mg Q6H PRN RECTAL Mild Pain (Pain Scale 1-3) 05/31/19 01:15 06/30/19 01:14 06/09/19 16:19 Acetylcysteine (Mucomyst) 100 mg Q4HRT N 05/31/19 17:00 06/30/19 16:59 06/09/19 14:08 Albuterol/ Ipratropium (Albuterol/ Ipratropium) 3 ml Q4HRT N 06/05/19 19:00 06/12/19 18:59 06/09/19 14:09 Ascorbic Acid (Vitamin C) 500 mg DAILY NG 06/06/19 09:00 07/02/19 08:59 06/09/19 09:51 Bisacodyl (Dulcolax) 10 mg DAILYPRN PRN RECTAL constipation 05/31/19 10:45 06/29/19 10:44 Cyanocobalamin (Vitamin B-12 Tab) 100 mcg DAILY NG 06/05/19 09:00 06/30/19 08:59 06/09/19 09:51 Docusate Sodium (Colace) 100 mg EVERY 12 HOURS NG 06/05/19 21:00 07/05/19 20:59 06/09/19 09:49 Famotidine (Pepcid I.v.) 20 mg Q12HR IVP 05/31/19 09:00 06/30/19 08:59 06/09/19 09:49 Ferrous Sulfate (Feosol) 325 mg DAILY NG 06/05/19 09:00 07/05/19 08:59 06/09/19 09:50 Heparin Sodium (Porcine) (Heparin 5000 units/ml) 5,000 units EVERY 12 HOURS SUBQ 05/31/19 09:00 06/29/19 08:59 06/09/19 09:56 Levothyroxine Sodium (Synthroid) 25 mcg DAILY IV 06/04/19 10:30 07/04/19 10:29 06/09/19 09:51 Midodrine (Pro-Amatine) 5 mg TIDPRN PRN NG SBP<90 06/05/19 15:00 06/29/19 12:59 06/07/19 03:36 Multivitamins (Multivitamins) 1 tab DAILY NG 06/05/19 09:00 07/02/19 08:59 06/09/19 09:51 Piperacillin Sod/ Tazobactam Sod 3.375 gm/Dextrose 110 ml @ 27.5 mls/hr Q8HR IVPB 06/04/19 22:00 06/11/19 05:59 06/09/19 14:18 Vancomycin HCl (Vanco rx to dose) 1 ea DAILY PRN MISC Per rx protocol 06/05/19 18:00 07/04/19 08:14 Zinc Sulfate (Zinc Sulfate) 220 mg DAILY NG 06/05/19 09:00 06/15/19 08:59 06/09/19 09:51 Rafia Rand MD Jun 09, 2019 17:39
[2019-06-09] MEDS ORDERED: Amikacin Rx to dose MISC PRN (17:45)
[2019-06-09] MEDS: Amikacin 700 MG in NS 110 ML IV SCH (19:50)
[2019-06-09 20:00] VITALS: BP 139/63
[2019-06-10] VITALS: BP 111/59
[2019-06-10] MEDS: Albuterol/Ipratropium 3ml neb HHN SCH ×6 (02:06→23:10)
[2019-06-10 04:00] VITALS: BP 157/73
[2019-06-10 07:09] LABS: APPEARANCE,URINE CLEAR; BILIRUBIN, URINE NEGATIVE (NEGATIVE); COLOR,URINE PALE YELLOW; GLUCOSE, URINE (UA) NEGATIVE (NEGATIVE); KETONES,URINE NEGATIVE (NEGATIVE); LEUKOCYTE ESTERASE ,URINE NEGATIVE (NEGATIVE); NITRITE,URINE NEGATIVE (NEGATIVE); PH,URINE 7 (4.5-8.0); PROTEIN,URINE 1+ (NEGATIVE); UROBILINOGEN,URINE NORMAL MG/DL (0.0-1.0)
[2019-06-10 08:00] VITALS: BP 98/57
[2019-06-10 08:04] LABS: BASOPHILS % (AUTO) 0.9 % (0.0-2.0); EOSINOPHILS % (AUTO) 0.7 % (0.0-3.0); HEMATOCRIT 32.5 % (42.0-52.0); LYMPHOCYTES % (AUTO) 19.5 % (20.0-45.0); MEAN CORPUSCULAR VOLUME 96 FL (80-99); MONOCYTES % (AUTO) 6.1 % (1.0-10.0); NEUTROPHILS % (AUTO) 72.7 % (45.0-75.0); PLATELET COUNT 515 K/UL (150-450); RED BLOOD COUNT 3.38 M/UL (4.70-6.10); RED CELL DISTRIBUTION WIDTH 12.1 % (11.6-14.8); WHITE BLOOD COUNT 12.9 K/UL (4.8-10.8)
[2019-06-10 08:24] LABS: ANION GAP 7 mmol/L (5-15); BLOOD UREA NITROGEN 8 mg/dL (7-18); CALCIUM 9.1 MG/DL (8.5-10.1); CARBON DIOXIDE 29 MMOL/L (21-32); CHLORIDE 102 MMOL/L (98-107); CREATININE 1.1 MG/DL (0.55-1.30); POTASSIUM 3.9 MMOL/L (3.5-5.1); SODIUM 138 MMOL/L (136-145)
[2019-06-10] MEDS ORDERED: Tubing IV Secondary IV ONE ×2 (08:38→17:48)
[2019-06-10] MEDS ORDERED: NS 275ml ONE ×2 (08:38→17:48)
[2019-06-10] MEDS: Ferrous Sulfate 300 MG/5 ML UDC NG SCH (09:21)
[2019-06-10] MEDS: Docusate 100mg/10ml Liq NG SCH ×2 (09:21→20:12)
[2019-06-10] MEDS: Vitamin B-12 100mcg tab NG SCH (09:21)
[2019-06-10] MEDS: Ascorbic Acid 500mg tab NG SCH (09:22)
[2019-06-10] MEDS: Vancomycin 500mg/D5W 110ml IVPB SCH ×4 (09:22→21:49)
[2019-06-10] MEDS: Zinc Sulfate 220mg cap NG SCH (09:22)
[2019-06-10] MEDS: Heparin 5000 units/ml inj SUBQ SCH ×2 (09:23→20:13)
--- NOTE | 2019-06-10 09:58 | Pulmonology Progress Note ---
Assessment/Plan Assessment/Plan Pulmonary Progress Note Assessment/Plan Problems: (1) Pneumonia (2) Acute and chronic respiratory failure with hypoxia (3) Severe sepsis (4) Fever (5) Down's syndrome (6) Tachycardia (7) Hypothyroid (8) HLD (hyperlipidemia) (9) HTN (hypertension) (10) GERD (gastroesophageal reflux disease) (11) Iron deficiency anemia (12) CHF (congestive heart failure) Assessment/Plan Problem List: 1. HCAP/BLL PNA, likely aspiration 2. Hypercapnic hypoxemic respiratory failure. 3. Down syndrome. 4. Small/mod b effusions 5. HTN & Hyperlipidemia 6. Gastroesophageal reflux disease. 7. Decubitus ulcers. Plan: -NGTF's only when stable off BiPAP -BiPAP 12/5 qhs and prn -Titrate NRBFM -cont abx per ID -monitor effusions -CORPORATE STRATEGY ANALYST recs, VSS, GT not within GOC -DNAR/DNI -Consider palliative care eval -Dispo planning to [facility]UTE or LTACH Case d/w RN Subjective Allergies: Coded Allergies: KETAMINE (Verified Allergy, Unknown, 05/29/19) NSAIDS (NON-STEROIDAL ANTI-INFLAMMA (Verified Allergy, Unknown, 05/29/19) Subjective AFVSS CXR unchanged Objective Vital Signs Noted General Appearance: no acute distress, cachetic HEENT: normocephalic, atraumatic, other - on BiPAP Respiratory/Chest: rhonchi Cardiovascular: normal peripheral pulses, normal rate, regular rhythm Abdomen: normal bowel sounds, soft, non tender, no organomegaly, non distended , no mass Extremities: no cyanosis, no clubbing, no edema Laboratory Tests Noted Subjective ROS Limited/Unobtainable: No Allergies: Coded Allergies: KETAMINE (Verified Allergy, Unknown, 05/29/19) NSAIDS (NON-STEROIDAL ANTI-INFLAMMA (Verified Allergy, Unknown, 05/29/19) Objective Last 24 Hour Vital Signs Date Time Temp Pulse Resp B/P (MAP) Pulse Ox O2 Delivery O2 Flow Rate FiO2 06/10/19 07:41 97 06/10/19 07:28 84 20 99 Non-Rebreather 15.0 100 80 20 98 06/10/19 07:28 98 Non-Rebreather 15.0 100 06/10/19 04:00 100.9 108 18 157/73 (101) 96 06/10/19 04:00 15.0 100 06/10/19 04:00 Bi-pap 06/10/19 03:27 117 06/10/19 02:07 100 20 98 Non-Rebreather 15.0 100 104 20 97 06/10/19 00:00 107 06/10/19 00:00 97.8 110 16 111/59 (76) 96 06/10/19 00:00 Bi-pap 06/09/19 22:45 101 22 98 Non-Rebreather 15.0 100 98 22 96 06/09/19 20:00 15.0 100 06/09/19 20:00 Bi-pap 06/09/19 20:00 97.9 100 16 139/63 (88) 100 06/09/19 19:28 117 06/09/19 19:01 102 22 99 Non-Rebreather 15.0 100 94 22 98 06/09/19 19:00 98 Non-Rebreather 15.0 100 06/09/19 16:49 99.0 06/09/19 16:00 15.0 100 06/09/19 16:00 142 06/09/19 16:00 101.7 123 25 136/68 (90) 95 06/09/19 16:00 Bi-pap 06/09/19 14:09 95 20 95 Non-Rebreather 15.0 100 85 22 99 06/09/19 12:00 99.8 111 24 101/63 (76) 98 06/09/19 12:00 Bi-pap 06/09/19 12:00 112 06/09/19 12:00 15.0 100 06/09/19 10:52 104 26 94 Non-Rebreather 15.0 100 102 26 98 Intake and Output 06/09/19 06/10/19 19:00 07:00 Intake Total 10 ml Output Total 400 ml Balance 10 ml -400 ml IV Total 10 ml Output Urine Total 400 ml # Bowel Movements 5 Laboratory Tests 06/09/19 10:40: Vancomycin Level Trough 28.0H 06/10/19 06:24: Urine Color Pale yellow, Urine Appearance Clear, Urine pH 7, Urine Specific [place] 1.010, Urine Protein 1+H, Urine Glucose (UA) Negative, Urine Ketones Negative, Urine Blood Negative, Urine Nitrite Negative, Urine Bilirubin Negative , Urine Urobilinogen Normal, Urine Leukocyte Esterase Negative, Urine RBC 0-2H, Urine WBC 2-4, Urine Squamous Epithelial Cells Occasional, Urine Bacteria Occasional, Urine Yeast ModerateH 06/10/19 07:56: White Blood Count 12.9H, Red Blood Count 3.38L, Hemoglobin 11.0L, Hematocrit 32.5L, Mean Corpuscular Volume 96, Mean Corpuscular Hemoglobin 32.5H, Mean Corpuscular Hemoglobin Concent 33.7, Red Cell Distribution Width 12.1, Platelet Count 515H, Mean Platelet Volume 5.8L, Neutrophils (%) (Auto) 72.7, Lymphocytes (%) (Auto) 19.5L, Monocytes (%) (Auto) 6.1, Eosinophils (%) (Auto) 0.7, Basophils (%) (Auto) 0.9, Sodium Level 138, Potassium Level 3.9, Chloride Level 102, Carbon Dioxide Level 29, Anion Gap 7, Blood Urea Nitrogen 8, Creatinine 1.1 , Estimat Glomerular Filtration Rate > 60, Glucose Level 107H, Calcium Level 9.1 , Random Amikacin Level 8.2, Random Vancomycin Level < 0.2 06/10/19 08:39: Arterial Blood pH 7.436, Arterial Blood Partial Pressure CO2 43.1, Arterial Blood Partial Pressure O2 81.2, Arterial Blood HCO3 28.4H, Arterial Blood Oxygen Saturation 95.4, Arterial Blood Base Excess 3.7H, Jonathan Test Positive Current Medications Medications (Trade) Dose Ordered Sig/Kendra Route PRN Reason Start Time Stop Time Status Last Admin Dose Admin Acetaminophen (Tylenol) 650 mg Q6H PRN RECTAL Mild Pain (Pain Scale 1-3) 05/31/19 01:15 06/30/19 01:14 06/09/19 16:19 Acetylcysteine (Mucomyst) 100 mg Q4HRT [facility] 05/31/19 17:00 06/30/19 16:59 06/10/19 07:28 Albuterol/ Ipratropium (Albuterol/ Ipratropium) 3 ml Q4HRT [facility] 06/05/19 19:00 06/12/19 18:59 06/10/19 07:27 Amikacin Protocol (Amikacin pharmacy to dose) 1 ea DAILY PRN MISC Per rx protocol 06/09/19 17:45 07/09/19 17:44 Amikacin Sulfate 700 mg/Sodium Chloride 112.8 ml @ 112.8 mls/ hr Q24H IV 06/09/19 20:00 06/16/19 19:59 06/09/19 19:50 Ascorbic Acid (Vitamin C) 500 mg DAILY NG 06/06/19 09:00 07/02/19 08:59 06/10/19 09:22 Bisacodyl (Dulcolax) 10 mg DAILYPRN PRN RECTAL constipation 05/31/19 10:45 06/29/19 10:44 Cyanocobalamin (Vitamin B-12 Tab) 100 mcg DAILY NG 06/05/19 09:00 06/30/19 08:59 06/10/19 09:21 Docusate Sodium (Colace) 100 mg EVERY 12 HOURS NG 06/05/19 21:00 07/05/19 20:59 06/10/19 09:21 Famotidine (Pepcid I.v.) 20 mg Q12HR IVP 05/31/19 09:00 06/30/19 08:59 06/10/19 09:21 Ferrous Sulfate (Feosol) 325 mg DAILY NG 06/05/19 09:00 07/05/19 08:59 06/10/19 09:21 Fluconazole/ Sodium Chloride 200 ml @ 200 mls/hr Q24H IV 06/09/19 18:00 06/16/19 17:59 06/09/19 18:27 Heparin Sodium (Porcine) (Heparin 5000 units/ml) 5,000 units EVERY 12 HOURS SUBQ 05/31/19 09:00 06/29/19 08:59 06/10/19 09:23 Levothyroxine Sodium (Synthroid) 25 mcg DAILY IV 06/04/19 10:30 07/04/19 10:29 06/10/19 09:22 Meropenem 1 gm/ Sodium Chloride 100 ml @ 200 mls/hr Q8HR IVPB 06/09/19 22:00 06/14/19 21:59 06/10/19 05:49 Midodrine (Pro-Amatine) 5 mg TIDPRN PRN NG SBP<90 06/05/19 15:00 06/29/19 12:59 06/07/19 03:36 Multivitamins (Multivitamins) 1 tab DAILY NG 06/05/19 09:00 07/02/19 08:59 06/10/19 09:22 Vancomycin HCl (Vanco rx to dose) 1 ea DAILY PRN MISC Per rx protocol 06/09/19 17:45 07/08/19 07:59 Vancomycin HCl 500 mg/Dextrose 110 ml @ 110 mls/hr Q12HR@1000,2200 IVPB 06/10/19 10:00 06/15/19 09:59 06/10/19 09:22 Zinc Sulfate (Zinc Sulfate) 220 mg DAILY NG 06/05/19 09:00 06/15/19 08:59 06/10/19 09:22 Dwayne Barrientos MD Jun 10, 2019 09:58
[2019-06-10] MEDS ORDERED: Sodium Chloride 550 ML IV SCH (10:45)
[2019-06-10 12:00] VITALS: BP 108/64
--- NOTE | 2019-06-10 12:14 | General Progress Note ---
Assessment/Plan Problem List: (1) Severe sepsis ICD Codes: A41.9 - Sepsis, unspecified organism; R65.20 - Severe sepsis without septic shock SNOMED: 81100312 (2) Acute on chronic respiratory failure with hypoxia and hypercapnia ICD Codes: J96.21 - Acute and chronic respiratory failure with hypoxia; J96.22 - Acute and chronic respiratory failure with hypercapnia SNOMED: 54674514774443 (3) Tachycardia ICD Codes: R00.0 - Tachycardia, unspecified SNOMED: 7422108 (4) Fever ICD Codes: R50.9 - Fever, unspecified SNOMED: 023030258 (5) CHF (congestive heart failure) ICD Codes: I50.9 - Heart failure, unspecified SNOMED: 00933711 (6) Iron deficiency anemia ICD Codes: D50.9 - Iron deficiency anemia, unspecified SNOMED: 13252265 (7) GERD (gastroesophageal reflux disease) ICD Codes: K21.9 - Gastro-esophageal reflux disease without esophagitis SNOMED: 027475452 (8) HTN (hypertension) ICD Codes: I10 - Essential (primary) hypertension SNOMED: 86069205 (9) Hypothyroid ICD Codes: E03.9 - Hypothyroidism, unspecified SNOMED: 69152748 (10) Pneumonia ICD Codes: J18.9 - Pneumonia, unspecified organism SNOMED: 692832343 (11) Ulcer of right heel ICD Codes: L97.419 - Non-pressure chronic ulcer of right heel and midfoot with unspecified severity SNOMED: 954144766 Status: not improved, unchanged, deteriorating Assessment/Plan: Dwayne Gibson is a 54 yo man with PMH of Down's syndrome (nonverbal and bedbound at baseline), CHF (unknown EF), HTN, HLD, iron deficiency anemia, hypothyroid, GERD, with JANETTE 1 cm2, and bilateral foot pressure ulcers who presented from [facility] with fever, cough, and hypoxia, found with Tm 100.5, leukocytosis with left shift, and CXR suggestive of possible bilateral infiltrate, admitted for acute on chronic hypoxemic respiratory failure and sepsis 2/2 HCAP. #Acute on chronic hypoxemic/hypercapnic respiratory failure (baseline NC 2-4L) 2 /2 HCAP and right pleural effusion- minimal improvement, last CXR 06/06 - worsening yesterday, improved today with broadened antibiotics. May have new hospital pneumonia, anemia? #Sepsis 2/2 HCAP -septic yesterday (Heart rate, Temp 101.7) #Bilateral pleural effusions - stable > Tm 100.5 on admission, WBC 20.5 with bands, RR to 30s, tachycardic to 130s > Lactate 1.2 > ABG on admission 7.4/39/73/24 > BCX negative to date > F/U sputum CX > ESR 119, CRp 29, osteo of ulcer? > S/p IVF NS 30cc/kg sepsis bolus and gentle continuous D5NS IVF. HL IVF 06/05 given increased PVC on CXR and worsening respiratory failure. > Venous duplex negative for DVT > CXR 06/01/19 with worsening right sided pleural effusion, 06/06 CXR with mild improvement noted and reviewed, 06/10, unchanged > CT chest performed showing bilateral pneumonia and moderate pleural effusions >sputum culture: normal shoshana, though after antibiotics initiated - UA not overtly suggestive of UTI > Ct chest noncontrast showing bilateral pleural effusions -Discontinue zosyn 4.5gm IV q6hrs (05/30- 06/09) - Continue vancomycin per pharmacy (05/29- ) -Start amikacin per infectious disease (06/09 - ) - Start diflucan per ID (06/09 - ) -Treat sepsis with gentle hydration normal saline 50 cc an hour - follow up repeat blood and sputum cultures 06/09 - Wean oxygen to keep O2 sat >/=92%. Continues intermittent BiPAP and nonrebreather - Pulm/crit care consulted, appreciate recs. Nebs scheduled q4hrs with suction q4hrs. - OK for transfer to subacute when stable - Infectious disease consulted Dr. Serrano. Appreciate recommendations - Appreciate general surgery recommendations: Dr. Ruffin - Tylenol 650mg PO q6hrs PRN pain or fever - Duonebs #skin breakdown around nares bilaterally from patient movement of HFNC -Discontinue high flow nasal cannula - wound care consult - nonrebreather or simple mask to avoid further skin breakdown or BIPAP #hx HTN but now requiring PRN midodrine at SNF for intermittent hypotension #hx HFpEF (LVEF 55%), with most recent TTE on 05/29/19 showing EF 40-45% #hx #hx HLD - EKG with sinus tachycardia, TWI in lateral leads (no prior in chart for comparison). Troponin negative on admission. Low suspicion for acute ACS - Continue home midodrine 5mg PO TID PRN SBP<90 - Can resume home statin once able to tolerate PO - holding CLARICE-I, Beta Sadiq given intermittent hypotension - Appreciate cardiology recommendations: Dr. Owen - consider spot lasix dose if fluid overload is noted. ( done 06/05 ). Pro-BNP downtrending. Gentle fluids as above #Encephalopathy in setting of sepsis and underlying Down's syndrome -appears to be back to baseline - Baseline nonverbal and bedbound - Treat sepsis as above - Limit sedating medications as able #Mild transaminitis - resolved #Hepatitis B surface antigen positive. Appears to have acute hepatitis B infection > Ultrasound unremarkable > Hepatitis IgM core ab positive, surface Ab negative, BE ab positive - AST 38 and ALT 100 on admission, - Can resume home statin once able to tolerate PO -Check further hepatitis B serologies, f/u hepatitis B DNA -Will need outpatient hepatotology follow up #Chronic hyponatremia - improving - Na 134 on admission, now 136 - Per records from SNF, Na was 132 on 05/05/19 - Monitor BMP #hx Hypothyroid - TSH 3.7 -Levothyroxine 25 mg IV daily. Will switch to p.o. once patient able to tolerate #hx GERD - Pepcid for home omeprazole #hx iron deficiency anemia - H/H stable - Continue home ferrous sulfate 325mg PO daily #Right heel wound - Present on admission - Appreciate wound care/surgery consult - Wound care as per recs #Dysphasia Supportive ST care and trials as he used to be able to eat 100 % with assistance at [facility] -Appreciate ST recommendations # Thrombocytosis with platelets of 541,000 most likely reactive. - Monitor #hypokalemia - replete with 40 MEQ KCL PO and 20 MEQ IV today #Goals of care -Discussed with healthcare decision-maker Mr. Sheriff the patient's cousin for 33 minutes on 06/05/19. Discussed goals of care including tube feedings. Mr. Sheriff would like to continue CODE STATUS of DNR/DNI as per the POLST, however he is okay with NG tube feedings temporarily. No PEG -TF started 06/05. May need to rediscuss vermin exterminator feeding i.e. PEG if still unable to pass swallow test FEN IVF: none DVT ppx: Heparin subq GI ppx: Pepcid Code Status: DNR/DNI with limited interventions, no PEG Diet: Tube feedings, Bolus since 06/08/19 Dispo: SUBACUTE for intermittent BiPAP Reason for continued hospitalization: Acute hypoxic respiratory failure 39 minutes spent on this encounter. Discussed with pulmonology, RN, Infectious Disease, and java project manager. > 50% spent on counseling and care coordination. Time of note may not reflect time patient was seen. Subjective Date patient seen: Jun 10, 2019 ROS Limited/Unobtainable: Yes - Patient nonverbal at baseline Allergies: Coded Allergies: KETAMINE (Verified Allergy, Unknown, 05/29/19) NSAIDS (NON-STEROIDAL ANTI-INFLAMMA (Verified Allergy, Unknown, 05/29/19) Subjective Yesterday patient on nonrebreather 100% FiO2. He was on BiPAP overnight. Had a temperature up to 101.7 and tachycardic up to 140. Infectious disease brought in antibiotics. This morning patient is on Venturi mask at 8 L saturating 98%. No other acute events. Further subjective history unable to be obtained as patient is nonverbal Objective Last 24 Hour Vital Signs Date Time Temp Pulse Resp B/P (MAP) Pulse Ox O2 Delivery O2 Flow Rate FiO2 06/10/19 11:00 82 20 98 Simple Mask 8.0 60 78 18 96 06/10/19 08:00 99.8 95 24 98/57 (71) 100 06/10/19 08:00 15.0 100 06/10/19 08:00 Simple Mask 8.0 06/10/19 07:41 97 06/10/19 07:28 84 20 99 Non-Rebreather 15.0 100 80 20 98 06/10/19 07:28 98 Non-Rebreather 15.0 100 06/10/19 04:00 100.9 108 18 157/73 (101) 96 06/10/19 04:00 15.0 100 06/10/19 04:00 Bi-pap 06/10/19 03:27 117 06/10/19 02:07 100 20 98 Non-Rebreather 15.0 100 104 20 97 06/10/19 00:00 107 06/10/19 00:00 97.8 110 16 111/59 (76) 96 10/23/19 00:00 Bi-pap 06/09/19 22:45 101 22 98 Non-Rebreather 15.0 100 98 22 96 06/09/19 20:00 15.0 100 06/09/19 20:00 Bi-pap 06/09/19 20:00 97.9 100 16 139/63 (88) 100 06/09/19 19:28 117 06/09/19 19:01 102 22 99 Non-Rebreather 15.0 100 94 22 98 06/09/19 19:00 98 Non-Rebreather 15.0 100 06/09/19 16:49 99.0 06/09/19 16:00 15.0 100 06/09/19 16:00 142 06/09/19 16:00 101.7 123 25 136/68 (90) 95 06/09/19 16:00 Bi-pap 06/09/19 14:09 95 20 95 Non-Rebreather 15.0 100 85 22 99 Intake and Output 06/09/19 06/10/19 19:00 07:00 Intake Total 10 ml Output Total 400 ml Balance 10 ml -400 ml IV Total 10 ml Output Urine Total 400 ml # Bowel Movements 5 Laboratory Tests 06/10/19 06:24: Urine Color Pale yellow, Urine Appearance Clear, Urine pH 7, Urine Specific [place] 1.010, Urine Protein 1+H, Urine Glucose (UA) Negative, Urine Ketones Negative, Urine Blood Negative, Urine Nitrite Negative, Urine Bilirubin Negative , Urine Urobilinogen Normal, Urine Leukocyte Esterase Negative, Urine RBC 0-2H, Urine WBC 2-4, Urine Squamous Epithelial Cells Occasional, Urine Bacteria Occasional, Urine Yeast ModerateH 06/10/19 07:56: White Blood Count 12.9H, Red Blood Count 3.38L, Hemoglobin 11.0L, Hematocrit 32.5L, Mean Corpuscular Volume 96, Mean Corpuscular Hemoglobin 32.5H, Mean Corpuscular Hemoglobin Concent 33.7, Red Cell Distribution Width 12.1, Platelet Count 515H, Mean Platelet Volume 5.8L, Neutrophils (%) (Auto) 72.7, Lymphocytes (%) (Auto) 19.5L, Monocytes (%) (Auto) 6.1, Eosinophils (%) (Auto) 0.7, Basophils (%) (Auto) 0.9, Sodium Level 138, Potassium Level 3.9, Chloride Level 102, Carbon Dioxide Level 29, Anion Gap 7, Blood Urea Nitrogen 8, Creatinine 1.1 , Estimat Glomerular Filtration Rate > 60, Glucose Level 107H, Calcium Level 9.1 , Random Amikacin Level 8.2, Random Vancomycin Level < 0.2 06/10/19 08:39: Arterial Blood pH 7.436, Arterial Blood Partial Pressure CO2 43.1, Arterial Blood Partial Pressure O2 81.2, Arterial Blood HCO3 28.4H, Arterial Blood Oxygen Saturation 95.4, Arterial Blood Base Excess 3.7H, Jonathan Test Positive Height (Feet): 5 Height (Inches): 1.00 Weight (Pounds): 125 General Appearance: WD/WN, no apparent distress, alert EENT: PERRL/EOMI, other - With some skin breakdown around her nares bilaterally Neck: non-tender, normal alignment, supple Cardiovascular: normal peripheral pulses, normal rate, regular rhythm, no JVD Respiratory/Chest: chest wall non-tender, other - Coarse breath sounds bilaterally. Abdomen: normal bowel sounds, non tender, soft Extremities: normal range of motion, non-tender, normal inspection Edema: other - No lower extremity edema bilaterally Neurologic: sap bw bi developer II-XII grossly normal, no motor/sensory deficits, alert, oriented x 3 Skin: normal pigmentation, warm/dry, other Joseph Durán D.O. Jun 10, 2019 12:14
--- NOTE | 2019-06-10 12:39 | Cardiac Electrophysiology PN ---
Assessment/Plan Assessment/Plan 1.Supraventricular tachycardia. Off betablocker or CA blockers for hypotension 2. Congestive heart failure with elevated BNP. However, the patient is septic and blood pressure in the borderline, already on midodrine. EF of 55%. 3. Hypotension on Midodrine. Got NS 500 cc today 4. Respiratory failure. Off and on on BIPAP per Dr. Luevano due to pneumonia. 5. Severe sepsis is on broad-spectrum IV antibiotics per Dr. Rand. 6. Hypothyroidism. 7. Iron deficiency anemia. 8. Decubitus ulcer. 9. DNR and DNI 10. Down syndrome. LUNA RN and Dr. Escoto Subjective Subjective In SDU. No SVT or VT.On NRB FM. DNR Objective Last 24 Hour Vital Signs Date Time Temp Pulse Resp B/P (MAP) Pulse Ox O2 Delivery O2 Flow Rate FiO2 06/10/19 12:00 Simple Mask 8.0 06/10/19 12:00 8.0 06/10/19 12:00 99.7 112 25 108/64 (79) 96 06/10/19 11:00 82 20 98 Simple Mask 8.0 60 78 18 96 06/10/19 08:00 99.8 95 24 98/57 (71) 100 06/10/19 08:00 15.0 100 06/10/19 08:00 Simple Mask 8.0 06/10/19 07:41 97 06/10/19 07:28 84 20 99 Non-Rebreather 15.0 100 80 20 98 06/10/19 07:28 98 Non-Rebreather 15.0 100 06/10/19 04:00 100.9 108 18 157/73 (101) 96 06/10/19 04:00 15.0 100 06/10/19 04:00 Bi-pap 06/10/19 03:27 117 06/10/19 02:07 100 20 98 Non-Rebreather 15.0 100 104 20 97 06/10/19 00:00 107 06/10/19 00:00 97.8 110 16 111/59 (76) 96 06/10/19 00:00 Bi-pap 06/09/19 22:45 101 22 98 Non-Rebreather 15.0 100 98 22 96 06/09/19 20:00 15.0 100 06/09/19 20:00 Bi-pap 06/09/19 20:00 97.9 100 16 139/63 (88) 100 06/09/19 19:28 117 06/09/19 19:01 102 22 99 Non-Rebreather 15.0 100 94 22 98 06/09/19 19:00 98 Non-Rebreather 15.0 100 06/09/19 16:49 99.0 06/09/19 16:00 15.0 100 06/09/19 16:00 142 06/09/19 16:00 101.7 123 25 136/68 (90) 95 06/09/19 16:00 Bi-pap 06/09/19 14:09 95 20 95 Non-Rebreather 15.0 100 85 22 99 Intake and Output 06/09/19 06/10/19 19:00 07:00 Intake Total 10 ml Output Total 400 ml Balance 10 ml -400 ml IV Total 10 ml Output Urine Total 400 ml # Bowel Movements 5 Laboratory Tests Test 06/10/19 06:24 06/10/19 07:56 06/10/19 08:39 Urine Color Pale yellow Urine Appearance Clear Urine pH 7 (4.5-8.0) Urine Specific [place] 1.010 (1.005-1.035) Urine Protein 1+ (NEGATIVE) H Urine Glucose (UA) Negative (NEGATIVE) Urine Ketones Negative (NEGATIVE) Urine Blood Negative (NEGATIVE) Urine Nitrite Negative (NEGATIVE) Urine Bilirubin Negative (NEGATIVE) Urine Urobilinogen Normal MG/DL (0.0-1.0) Urine Leukocyte Esterase Negative (NEGATIVE) Urine RBC 0-2 /HPF (0 - 0) H Urine WBC 2-4 /HPF (0 - 0) Urine Squamous Epithelial Cells Occasional /LPF Urine Bacteria Occasional /HPF (NONE) Urine Yeast Moderate /HPF (NONE) H White Blood Count 12.9 K/UL (4.8-10.8) H Red Blood Count 3.38 M/UL (4.70-6.10) L Hemoglobin 11.0 G/DL (14.2-18.0) L Hematocrit 32.5 % (42.0-52.0) L Mean Corpuscular Volume 96 FL (80-99) Mean Corpuscular Hemoglobin 32.5 PG (27.0-31.0) H Mean Corpuscular Hemoglobin Concent 33.7 G/DL (32.0-36.0) Red Cell Distribution Width 12.1 % (11.6-14.8) Platelet Count 515 K/UL (150-450) H Mean Platelet Volume 5.8 FL (6.5-10.1) L Neutrophils (%) (Auto) 72.7 % (45.0-75.0) Lymphocytes (%) (Auto) 19.5 % (20.0-45.0) L Monocytes (%) (Auto) 6.1 % (1.0-10.0) Eosinophils (%) (Auto) 0.7 % (0.0-3.0) Basophils (%) (Auto) 0.9 % (0.0-2.0) Sodium Level 138 MMOL/L (136-145) Potassium Level 3.9 MMOL/L (3.5-5.1) Chloride Level 102 MMOL/L (98-107) Carbon Dioxide Level 29 MMOL/L (21-32) Anion Gap 7 mmol/L (5-15) Blood Urea Nitrogen 8 mg/dL (7-18) Creatinine 1.1 MG/DL (0.55-1.30) Estimat Glomerular Filtration Rate > 60 mL/min (>60) Glucose Level 107 MG/DL (74-106) H Calcium Level 9.1 MG/DL (8.5-10.1) Random Amikacin Level 8.2 ug/mL Random Vancomycin Level < 0.2 ug/mL Arterial Blood pH 7.436 (7.350-7.450) Arterial Blood Partial Pressure CO2 43.1 mmHg (35.0-45.0) Arterial Blood Partial Pressure O2 81.2 mmHg (75.0-100.0) Arterial Blood HCO3 28.4 mmol/L (22.0-26.0) H Arterial Blood Oxygen Saturation 95.4 % (95-100) Arterial Blood Base Excess 3.7 (-2-2) H Jonathan Test Positive Objective HEAD AND NECK: Mild JVD. NG-tube in and NRB FM is on LUNGS: Coarse rhonchi. CARDIOVASCULAR: Regular S1 and S2 with no gallop. ABDOMEN: Soft. EXTREMITIES: No pitting edema. Valerio Owen MD Jun 10, 2019 12:39
--- NOTE | 2019-06-10 14:42 | Surgery Progress Note ---
Surgery Progress Note Subjective Additional Comments no acute events leukocytosis labs noted exam unchanged. dressings changed Objective Last 24 Hour Vital Signs Date Time Temp Pulse Resp B/P (MAP) Pulse Ox O2 Delivery O2 Flow Rate FiO2 06/10/19 12:00 Simple Mask 8.0 06/10/19 12:00 8.0 06/10/19 12:00 99.7 112 25 108/64 (79) 96 06/10/19 12:00 92 06/10/19 11:00 82 20 98 Simple Mask 8.0 60 78 18 96 06/10/19 08:00 99.8 95 24 98/57 (71) 100 06/10/19 08:00 15.0 100 06/10/19 08:00 Simple Mask 8.0 06/10/19 07:41 97 06/10/19 07:28 84 20 99 Non-Rebreather 15.0 100 80 20 98 06/10/19 07:28 98 Non-Rebreather 15.0 100 06/10/19 04:00 100.9 108 18 157/73 (101) 96 06/10/19 04:00 15.0 100 06/10/19 04:00 Bi-pap 06/10/19 03:27 117 06/10/19 02:07 100 20 98 Non-Rebreather 15.0 100 104 20 97 06/10/19 00:00 107 06/10/19 00:00 97.8 110 16 111/59 (76) 96 06/10/19 00:00 Bi-pap 06/09/19 22:45 101 22 98 Non-Rebreather 15.0 100 98 22 96 06/09/19 20:00 15.0 100 06/09/19 20:00 Bi-pap 06/09/19 20:00 97.9 100 16 139/63 (88) 100 06/09/19 19:28 117 06/09/19 19:01 102 22 99 Non-Rebreather 15.0 100 94 22 98 06/09/19 19:00 98 Non-Rebreather 15.0 100 06/09/19 16:49 99.0 06/09/19 16:00 15.0 100 06/09/19 16:00 142 06/09/19 16:00 101.7 123 25 136/68 (90) 95 06/09/19 16:00 Bi-pap I&O Intake and Output 06/09/19 06/10/19 19:00 07:00 Intake Total 10 ml Output Total 400 ml Balance 10 ml -400 ml IV Total 10 ml Output Urine Total 400 ml # Bowel Movements 5 Dressing: saturated Wound: other Drains: other Cardiovascular: RSR Respiratory: decreased breath sounds Abdomen: soft, present bowel sounds Extremities: no tenderness, no cyanosis Laboratory Tests Test 06/10/19 06:24 06/10/19 07:56 06/10/19 08:39 Urine Color Pale yellow Urine Appearance Clear Urine pH 7 (4.5-8.0) Urine Specific [place] 1.010 (1.005-1.035) Urine Protein 1+ (NEGATIVE) H Urine Glucose (UA) Negative (NEGATIVE) Urine Ketones Negative (NEGATIVE) Urine Blood Negative (NEGATIVE) Urine Nitrite Negative (NEGATIVE) Urine Bilirubin Negative (NEGATIVE) Urine Urobilinogen Normal MG/DL (0.0-1.0) Urine Leukocyte Esterase Negative (NEGATIVE) Urine RBC 0-2 /HPF (0 - 0) H Urine WBC 2-4 /HPF (0 - 0) Urine Squamous Epithelial Cells Occasional /LPF Urine Bacteria Occasional /HPF (NONE) Urine Yeast Moderate /HPF (NONE) H White Blood Count 12.9 K/UL (4.8-10.8) H Red Blood Count 3.38 M/UL (4.70-6.10) L Hemoglobin 11.0 G/DL (14.2-18.0) L Hematocrit 32.5 % (42.0-52.0) L Mean Corpuscular Volume 96 FL (80-99) Mean Corpuscular Hemoglobin 32.5 PG (27.0-31.0) H Mean Corpuscular Hemoglobin Concent 33.7 G/DL (32.0-36.0) Red Cell Distribution Width 12.1 % (11.6-14.8) Platelet Count 515 K/UL (150-450) H Mean Platelet Volume 5.8 FL (6.5-10.1) L Neutrophils (%) (Auto) 72.7 % (45.0-75.0) Lymphocytes (%) (Auto) 19.5 % (20.0-45.0) L Monocytes (%) (Auto) 6.1 % (1.0-10.0) Eosinophils (%) (Auto) 0.7 % (0.0-3.0) Basophils (%) (Auto) 0.9 % (0.0-2.0) Sodium Level 138 MMOL/L (136-145) Potassium Level 3.9 MMOL/L (3.5-5.1) Chloride Level 102 MMOL/L (98-107) Carbon Dioxide Level 29 MMOL/L (21-32) Anion Gap 7 mmol/L (5-15) Blood Urea Nitrogen 8 mg/dL (7-18) Creatinine 1.1 MG/DL (0.55-1.30) Estimat Glomerular Filtration Rate > 60 mL/min (>60) Glucose Level 107 MG/DL (74-106) H Calcium Level 9.1 MG/DL (8.5-10.1) Random Amikacin Level 8.2 ug/mL Random Vancomycin Level < 0.2 ug/mL Arterial Blood pH 7.436 (7.350-7.450) Arterial Blood Partial Pressure CO2 43.1 mmHg (35.0-45.0) Arterial Blood Partial Pressure O2 81.2 mmHg (75.0-100.0) Arterial Blood HCO3 28.4 mmol/L (22.0-26.0) H Arterial Blood Oxygen Saturation 95.4 % (95-100) Arterial Blood Base Excess 3.7 (-2-2) H Jonathan Test Positive Plan Problems: (1) Ulcer of right heel Assessment & Plan: This is a 54-year-old male with multiple medical comorbidities who is currently presented for fever and tachycardia. Patient identified to have abnormal decubitus pressure ulcer on right heel. On examination patient has a stage III full-thickness right heel decubitus ulcer periwound intact but mildly macerated. Surrounding erythema. No drainage. No underlying abscess. No bone palpable. No foul odor. Labs noted and identified. No signs of acute active inflammatory or infectious process from this. Patient does have a leukocytosis that significant. Will continue work-up for etiology Will recommend local wound care. Apply Thera honey followed by up to foam dressing daily. We will monitor. Thank you for this consultation we will follow with recommendations d/c planning (2) Fever Assessment & Plan: Low-grade fevers, tachycardia, leukocytosis, abnormal labs Head to toe skin integrity and wound eval completed as above UA noted chest x-ray noted Possible aspiration pneumonia Continue antibiotics as per infectious disease IV fluids Patient not eating well and currently DNR/DNI and does not have feeding tube. 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 * Increased kcal/prot needs R/T wound healing and wasting as evidenced by pt admitted w/ stage 3 rt heel wound, w/ mild-moderate generalized wasting. CURRENT DIET:NPO PO DIET RECOMMENDATIONS: IF SAFE FOR PO -> liberalized REGULAR/ texture per RN SCHOOL + Ensure Enlive TID ENTERAL NUTRITION RECOMMENDATIONS: CONSULT RD IF TF PART OF POC AND INDICATED: PER POLST, NO TF AT THIS TIME ADDITIONAL RECOMMENDATIONS: * Calibrated bedscale wt - bedscale wt per RD= 101lbs vs EMR [id number] * Monitor NPO status, ability to feed - RN SCHOOL eval pending, pt on BIPAP, altered. TF indicates no TF at this time * Monitor lytes, replete as needed * Wound healing: once able to feed-> add MVI w/ min x 1, Vit C 500mg QD -> add ZnSO4 220mg QD x 10 days -> Jeremy 1pkt BID as tolerated Alexis Ruffin Jun 10, 2019 14:42
[2019-06-10 16:00] VITALS: BP 116/53
[2019-06-10 20:00] VITALS: BP 109/56
[2019-06-10] MEDS: Amikacin 700 MG in NS 110 ML IV SCH (20:12)
[2019-06-11] VITALS: BP 98/59
[2019-06-11] MEDS: Albuterol/Ipratropium 3ml neb HHN SCH ×6 (03:17→23:16)
[2019-06-11 04:00] VITALS: BP 91/52
[2019-06-11 04:50] LABS: BASOPHILS % (AUTO) 1.2 % (0.0-2.0); EOSINOPHILS % (AUTO) 1.2 % (0.0-3.0); HEMOGLOBIN 10.6 G/DL (14.2-18.0); LYMPHOCYTES % (AUTO) 19.1 % (20.0-45.0); MEAN CORPUSCULAR VOLUME 96 FL (80-99); MONOCYTES % (AUTO) 6.4 % (1.0-10.0); NEUTROPHILS % (AUTO) 72.2 % (45.0-75.0); PLATELET COUNT 468 K/UL (150-450); RED BLOOD COUNT 3.23 M/UL (4.70-6.10); RED CELL DISTRIBUTION WIDTH 12.5 % (11.6-14.8); WHITE BLOOD COUNT 12.2 K/UL (4.8-10.8)
[2019-06-11 05:08] LABS: ANION GAP 8 mmol/L (5-15); BLOOD UREA NITROGEN 9 mg/dL (7-18); CALCIUM 9.1 MG/DL (8.5-10.1); CARBON DIOXIDE 29 MMOL/L (21-32); CHLORIDE 103 MMOL/L (98-107); POTASSIUM 3.7 MMOL/L (3.5-5.1); SODIUM 139 MMOL/L (136-145)
[2019-06-11 08:00] VITALS: BP 90/58
[2019-06-11] MEDS: Ferrous Sulfate 300 MG/5 ML UDC NG SCH (08:46)
[2019-06-11] MEDS: Docusate 100mg/10ml Liq NG SCH ×2 (08:46→20:35)
[2019-06-11] MEDS: Zinc Sulfate 220mg cap NG SCH (08:47)
[2019-06-11] MEDS: Ascorbic Acid 500mg tab NG SCH (08:47)
[2019-06-11] MEDS: Vitamin B-12 100mcg tab NG SCH (08:47)
[2019-06-11] MEDS: Heparin 5000 units/ml inj SUBQ SCH ×2 (08:49→20:58)
--- NOTE | 2019-06-11 09:51 | Diagnostic Imaging Report ---
Indication: Shortness of breath Technique: One view of the chest Comparison: 06/09/2019 Findings: Less optimal inspiration currently. Right basilar and left retrocardiac infiltrates are unchanged. Bilateral pleural effusions are unchanged. Impression: Unchanged, over 2 days, findings as above.
[2019-06-11] MEDS: Vancomycin 500mg/D5W 110ml IVPB SCH ×4 (10:10→22:12)
--- NOTE | 2019-06-11 10:56 | Cardiac Electrophysiology PN ---
Assessment/Plan Assessment/Plan 1. Supraventricular tachycardia. Off betablocker or CA blockers for hypotension 2. Congestive heart failure with elevated BNP. However, the patient is septic and blood pressure in the borderline, already on midodrine. EF of 55%. 3. Hypotension on Midodrine. Better after NS 500 cc 4. Respiratory failure. Off and on on BIPAP per Dr. Luevano due to pneumonia. 5. Severe sepsis is on broad-spectrum IV antibiotics per Dr. Rand. 6. Hypothyroidism. 7. Iron deficiency anemia. 8. Decubitus ulcer. 9. DNR and DNI 10. Down syndrome. LUNA RN and Dr. Escoto Subjective Subjective In SDU. No SVT or VT.On and on FM. DNR. Still gets NG feeding Objective Last 24 Hour Vital Signs Date Time Temp Pulse Resp B/P (MAP) Pulse Ox O2 Delivery O2 Flow Rate FiO2 06/11/19 08:00 98.3 76 19 90/58 (69) 100 06/11/19 08:00 Bi-pap 06/11/19 08:00 50 06/11/19 07:42 78 25 97 Facial 50 87 25 97 Bi-Pap 50 06/11/19 07:40 97 Bi-Pap 50 06/11/19 07:35 87 06/11/19 05:26 84 23 100 Facial 50 06/11/19 04:00 89 06/11/19 04:00 50 06/11/19 04:00 Bi-pap 06/11/19 04:00 98.6 90 21 91/52 (65) 98 06/11/19 03:32 86 22 100 Bi-Pap 50 06/11/19 03:17 83 22 100 Bi-Pap 50 06/11/19 03:17 83 22 100 Facial 50 06/11/19 01:05 71 22 99 Facial 50 06/11/19 00:00 110 06/11/19 00:00 99.8 85 25 98/59 (72) 97 06/11/19 00:00 Bi-pap 06/11/19 00:00 50 06/10/19 23:25 102 27 99 Facial 50 06/10/19 23:25 102 27 99 Bi-Pap 50 06/10/19 23:10 88 20 99 Venturi Mask 12.0 50 06/10/19 20:00 8.0 06/10/19 20:00 100.1 110 24 109/56 (73) 98 06/10/19 20:00 107 06/10/19 20:00 Simple Mask 8.0 06/10/19 19:21 101 20 98 Venturi Mask 12.0 50 06/10/19 19:06 91 20 96 Venturi Mask 12.0 50 06/10/19 19:06 96 Venturi Mask 12.0 50 06/10/19 19:06 91 20 96 Venturi Mask 12.0 50 06/10/19 16:00 Simple Mask 8.0 06/10/19 16:00 101 06/10/19 16:00 100.1 110 24 116/53 (74) 100 06/10/19 16:00 8.0 06/10/19 14:40 84 20 100 Simple Mask 8.0 60 80 20 99 06/10/19 12:00 Simple Mask 8.0 06/10/19 12:00 8.0 06/10/19 12:00 99.7 112 25 108/64 (79) 96 06/10/19 12:00 92 06/10/19 11:00 82 20 98 Simple Mask 8.0 60 78 18 96 Intake and Output 06/10/19 06/11/19 19:00 07:00 Intake Total 816.7 ml 896.8 ml Output Total 300 ml Balance 516.7 ml 896.8 ml Intake Oral 474 ml Free Water 40 ml 100 ml IV Total 776.7 ml 322.8 ml Output Urine Total 300 ml # Voids 1 2 Laboratory Tests Test 06/11/19 03:20 White Blood Count 12.2 K/UL (4.8-10.8) H Red Blood Count 3.23 M/UL (4.70-6.10) L Hemoglobin 10.6 G/DL (14.2-18.0) L Hematocrit 31.0 % (42.0-52.0) L Mean Corpuscular Volume 96 FL (80-99) Mean Corpuscular Hemoglobin 32.7 PG (27.0-31.0) H Mean Corpuscular Hemoglobin Concent 34.1 G/DL (32.0-36.0) Red Cell Distribution Width 12.5 % (11.6-14.8) Platelet Count 468 K/UL (150-450) H Mean Platelet Volume 6.1 FL (6.5-10.1) L Neutrophils (%) (Auto) 72.2 % (45.0-75.0) Lymphocytes (%) (Auto) 19.1 % (20.0-45.0) L Monocytes (%) (Auto) 6.4 % (1.0-10.0) Eosinophils (%) (Auto) 1.2 % (0.0-3.0) Basophils (%) (Auto) 1.2 % (0.0-2.0) Sodium Level 139 MMOL/L (136-145) Potassium Level 3.7 MMOL/L (3.5-5.1) Chloride Level 103 MMOL/L (98-107) Carbon Dioxide Level 29 MMOL/L (21-32) Anion Gap 8 mmol/L (5-15) Blood Urea Nitrogen 9 mg/dL (7-18) Creatinine 1.0 MG/DL (0.55-1.30) Estimat Glomerular Filtration Rate > 60 mL/min (>60) Glucose Level 94 MG/DL (74-106) Calcium Level 9.1 MG/DL (8.5-10.1) Microbiology Date/Time Source Procedure Growth Status 06/09/19 18:35 Blood Blood Culture - Preliminary NO GROWTH AFTER 24 HOURS Resulted 06/09/19 18:20 Blood Blood Culture - Preliminary NO GROWTH AFTER 24 HOURS Resulted 06/10/19 06:24 Indwelling Cath Urine Culture - Preliminary NO GROWTH Resulted Objective HEAD AND NECK: Mild JVD. NG-tube in and NRB FM is on LUNGS: Coarse rhonchi. CARDIOVASCULAR: Regular S1 and S2 with no gallop. ABDOMEN: Soft. EXTREMITIES: No pitting edema. Valerio Owen MD Jun 11, 2019 10:56
--- NOTE | 2019-06-11 11:02 | Pulmonology Progress Note ---
Assessment/Plan Assessment/Plan Pulmonary Progress Note Assessment/Plan Problems: (1) Pneumonia (2) Acute and chronic respiratory failure with hypoxia (3) Severe sepsis (4) Fever (5) Down's syndrome (6) Tachycardia (7) Hypothyroid (8) HLD (hyperlipidemia) (9) HTN (hypertension) (10) GERD (gastroesophageal reflux disease) (11) Iron deficiency anemia (12) CHF (congestive heart failure) Assessment/Plan Problem List: 1. HCAP/BLL PNA, likely aspiration 2. Hypercapnic hypoxemic respiratory failure. 3. Down syndrome. 4. Small/mod b effusions 5. HTN & Hyperlipidemia 6. Gastroesophageal reflux disease. 7. Decubitus ulcers. Plan: -NGTF's only when stable off BiPAP -BiPAP 12/5 qhs and prn -Titrate NRBFM -cont abx per ID -monitor effusions -[employer] recs, VSS, GT not within GOC -DNAR/DNI -Consider palliative care eval -Dispo planning to [facility] or LTACH Case d/w RN Subjective Allergies: Coded Allergies: KETAMINE (Verified Allergy, Unknown, 05/29/19) NSAIDS (NON-STEROIDAL ANTI-INFLAMMA (Verified Allergy, Unknown, 05/29/19) Subjective AFVSS CXR unchanged Objective Vital Signs Noted General Appearance: no acute distress, cachetic HEENT: normocephalic, atraumatic, other - on BiPAP Respiratory/Chest: rhonchi Cardiovascular: normal peripheral pulses, normal rate, regular rhythm Abdomen: normal bowel sounds, soft, non tender, no organomegaly, non distended , no mass Extremities: no cyanosis, no clubbing, no edema Laboratory Tests Noted Subjective ROS Limited/Unobtainable: No Allergies: Coded Allergies: KETAMINE (Verified Allergy, Unknown, 05/29/19) NSAIDS (NON-STEROIDAL ANTI-INFLAMMA (Verified Allergy, Unknown, 05/29/19) Objective Last 24 Hour Vital Signs Date Time Temp Pulse Resp B/P (MAP) Pulse Ox O2 Delivery O2 Flow Rate FiO2 06/11/19 08:00 98.3 76 19 90/58 (69) 100 06/11/19 08:00 Bi-pap 06/11/19 08:00 50 06/11/19 07:42 78 25 97 Facial 50 87 25 97 Bi-Pap 50 06/11/19 07:40 97 Bi-Pap 50 06/11/19 07:35 87 06/11/19 05:26 84 23 100 Facial 50 06/11/19 04:00 89 06/11/19 04:00 50 06/11/19 04:00 Bi-pap 06/11/19 04:00 98.6 90 21 91/52 (65) 98 06/11/19 03:32 86 22 100 Bi-Pap 50 06/11/19 03:17 83 22 100 Bi-Pap 50 06/11/19 03:17 83 22 100 Facial 50 06/11/19 01:05 71 22 99 Facial 50 06/11/19 00:00 110 06/11/19 00:00 99.8 85 25 98/59 (72) 97 06/11/19 00:00 Bi-pap 06/11/19 00:00 50 06/10/19 23:25 102 27 99 Facial 50 06/10/19 23:25 102 27 99 Bi-Pap 50 06/10/19 23:10 88 20 99 Venturi Mask 12.0 50 06/10/19 20:00 8.0 06/10/19 20:00 100.1 110 24 109/56 (73) 98 06/10/19 20:00 107 06/10/19 20:00 Simple Mask 8.0 06/10/19 19:21 101 20 98 Venturi Mask 12.0 50 06/10/19 19:06 91 20 96 Venturi Mask 12.0 50 06/10/19 19:06 96 Venturi Mask 12.0 50 06/10/19 19:06 91 20 96 Venturi Mask 12.0 50 06/10/19 16:00 Simple Mask 8.0 06/10/19 16:00 101 06/10/19 16:00 100.1 110 24 116/53 (74) 100 06/10/19 16:00 8.0 06/10/19 14:40 84 20 100 Simple Mask 8.0 60 80 20 99 06/10/19 12:00 Simple Mask 8.0 06/10/19 12:00 8.0 06/10/19 12:00 99.7 112 25 108/64 (79) 96 06/10/19 12:00 92 Intake and Output 06/10/19 06/11/19 19:00 07:00 Intake Total 816.7 ml 896.8 ml Output Total 300 ml Balance 516.7 ml 896.8 ml Intake Oral 474 ml Free Water 40 ml 100 ml IV Total 776.7 ml 322.8 ml Output Urine Total 300 ml # Voids 1 2 Microbiology Date/Time Source Procedure Growth Status 06/09/19 18:35 Blood Blood Culture - Preliminary NO GROWTH AFTER 24 HOURS Resulted 06/09/19 18:20 Blood Blood Culture - Preliminary NO GROWTH AFTER 24 HOURS Resulted 06/10/19 06:24 Indwelling Cath Urine Culture - Preliminary NO GROWTH Resulted Laboratory Tests 06/11/19 03:20: White Blood Count 12.2H, Red Blood Count 3.23L, Hemoglobin 10.6L, Hematocrit 31.0L, Mean Corpuscular Volume 96, Mean Corpuscular Hemoglobin 32.7H, Mean Corpuscular Hemoglobin Concent 34.1, Red Cell Distribution Width 12.5, Platelet Count 468H, Mean Platelet Volume 6.1L, Neutrophils (%) (Auto) 72.2, Lymphocytes (%) (Auto) 19.1L, Monocytes (%) (Auto) 6.4, Eosinophils (%) (Auto) 1.2, Basophils (%) (Auto) 1.2, Sodium Level 139, Potassium Level 3.7, Chloride Level 103, Carbon Dioxide Level 29, Anion Gap 8, Blood Urea Nitrogen 9, Creatinine 1.0 , Estimat Glomerular Filtration Rate > 60, Glucose Level 94, Calcium Level 9.1 Current Medications Medications (Trade) Dose Ordered Sig/Kendra Route PRN Reason Start Time Stop Time Status Last Admin Dose Admin Acetaminophen (Tylenol) 650 mg Q6H PRN RECTAL Mild Pain (Pain Scale 1-3) 05/31/19 01:15 06/30/19 01:14 06/09/19 16:19 Acetylcysteine (Mucomyst) 100 mg Q4HRT [facility] 05/31/19 17:00 06/30/19 16:59 06/11/19 07:47 Albuterol/ Ipratropium (Albuterol/ Ipratropium) 3 ml Q4HRT N 06/05/19 19:00 06/12/19 18:59 06/11/19 07:46 Amikacin Protocol (Amikacin pharmacy to dose) 1 ea DAILY PRN MISC Per rx protocol 06/09/19 17:45 07/09/19 17:44 Amikacin Sulfate 700 mg/Sodium Chloride 112.8 ml @ 112.8 mls/ hr Q24H IV 06/09/19 20:00 06/16/19 19:59 06/10/19 20:12 Ascorbic Acid (Vitamin C) 500 mg DAILY NG 06/06/19 09:00 07/02/19 08:59 06/11/19 08:47 Bisacodyl (Dulcolax) 10 mg DAILYPRN PRN RECTAL constipation 05/31/19 10:45 06/29/19 10:44 Cyanocobalamin (Vitamin B-12 Tab) 100 mcg DAILY NG 06/05/19 09:00 06/30/19 08:59 06/11/19 08:47 Docusate Sodium (Colace) 100 mg EVERY 12 HOURS NG 06/05/19 21:00 07/05/19 20:59 06/11/19 08:46 Famotidine (Pepcid I.v.) 20 mg Q12HR IVP 05/31/19 09:00 06/30/19 08:59 06/11/19 08:47 Ferrous Sulfate (Feosol) 325 mg DAILY NG 06/05/19 09:00 07/05/19 08:59 06/11/19 08:46 Fluconazole/ Sodium Chloride 200 ml @ 200 mls/hr Q24H IV 06/09/19 18:00 06/16/19 17:59 06/10/19 17:28 Heparin Sodium (Porcine) (Heparin 5000 units/ml) 5,000 units EVERY 12 HOURS SUBQ 05/31/19 09:00 06/29/19 08:59 06/11/19 08:49 Levothyroxine Sodium (Synthroid) 25 mcg DAILY IV 06/04/19 10:30 07/04/19 10:29 06/11/19 09:03 Meropenem 1 gm/ Sodium Chloride 100 ml @ 200 mls/hr Q8HR IVPB 06/09/19 22:00 06/14/19 21:59 06/11/19 05:17 Midodrine (Pro-Amatine) 5 mg TIDPRN PRN NG SBP<90 06/05/19 15:00 06/29/19 12:59 06/07/19 03:36 Multivitamins (Multivitamins) 1 tab DAILY NG 06/05/19 09:00 07/02/19 08:59 06/11/19 08:47 Vancomycin HCl (Vanco rx to dose) 1 ea DAILY PRN MISC Per rx protocol 06/09/19 17:45 07/08/19 07:59 Vancomycin HCl 500 mg/Dextrose 110 ml @ 110 mls/hr Q12HR@1000,2200 IVPB 06/10/19 10:00 06/15/19 09:59 06/11/19 10:10 Zinc Sulfate (Zinc Sulfate) 220 mg DAILY NG 06/05/19 09:00 06/15/19 08:59 06/11/19 08:47 Dwayne Barrientos MD Jun 11, 2019 11:02
--- NOTE | 2019-06-11 11:44 | General Progress Note ---
Assessment/Plan Problem List: (1) Severe sepsis ICD Codes: A41.9 - Sepsis, unspecified organism; R65.20 - Severe sepsis without septic shock SNOMED: 10388351 (2) Acute on chronic respiratory failure with hypoxia and hypercapnia ICD Codes: J96.21 - Acute and chronic respiratory failure with hypoxia; J96.22 - Acute and chronic respiratory failure with hypercapnia SNOMED: 50037443803740 (3) Tachycardia ICD Codes: R00.0 - Tachycardia, unspecified SNOMED: 1589263 (4) Fever ICD Codes: R50.9 - Fever, unspecified SNOMED: 672598996 (5) CHF (congestive heart failure) ICD Codes: I50.9 - Heart failure, unspecified SNOMED: 47070723 (6) Iron deficiency anemia ICD Codes: D50.9 - Iron deficiency anemia, unspecified SNOMED: 57841888 (7) GERD (gastroesophageal reflux disease) ICD Codes: K21.9 - Gastro-esophageal reflux disease without esophagitis SNOMED: 597785907 (8) HTN (hypertension) ICD Codes: I10 - Essential (primary) hypertension SNOMED: 07516053 (9) Hypothyroid ICD Codes: E03.9 - Hypothyroidism, unspecified SNOMED: 50310634 (10) Pneumonia ICD Codes: J18.9 - Pneumonia, unspecified organism SNOMED: 887359688 (11) Ulcer of right heel ICD Codes: L97.419 - Non-pressure chronic ulcer of right heel and midfoot with unspecified severity SNOMED: 226901440 Status: not improved, unchanged, deteriorating Assessment/Plan: Dwayne Gibson is a 54 yo man with PMH of Down's syndrome (nonverbal and bedbound at baseline), CHF (unknown EF), HTN, HLD, iron deficiency anemia, hypothyroid, GERD, with JANETTE 1 cm2, and bilateral foot pressure ulcers who presented from [facility] with fever, cough, and hypoxia, found with Tm 100.5, leukocytosis with left shift, and CXR suggestive of possible bilateral infiltrate, admitted for acute on chronic hypoxemic respiratory failure and sepsis 2/2 HCAP. #Acute on chronic hypoxemic/hypercapnic respiratory failure (baseline NC 2-4L) 2 /2 HCAP and right pleural effusion- minimal improvement. Improved today with broadened antibiotics. #Sepsis 2/2 HCAP -septic 06/09/19 (Heart rate, Temp 101.7) - improved #Bilateral pleural effusions - stable > Tm 100.5 on admission, WBC 20.5 with bands, RR to 30s, tachycardic to 130s > Lactate 1.2 > ABG on admission 7.4/39/73/24 > BCX negative to date > F/U sputum CX > ESR 119, CRp 29, osteo of ulcer? > S/p IVF NS 30cc/kg sepsis bolus and gentle continuous D5NS IVF. HL IVF 06/05 given increased PVC on CXR and worsening respiratory failure. > Venous duplex negative for DVT > CXR 06/01/19 with worsening right sided pleural effusion, 06/06 CXR with mild improvement noted and reviewed, 06/10, unchanged, 06/11 unchanged > CT chest performed showing bilateral pneumonia and moderate pleural effusions >sputum culture: normal shoshana, though after antibiotics initiated > UA not overtly suggestive of UTI > Ct chest noncontrast showing bilateral pleural effusions -Discontinue zosyn 4.5gm IV q6hrs (05/30- 06/09) - Continue vancomycin per pharmacy (05/29- ) - Continue amikacin per infectious disease (06/09 - ) - Continue diflucan per ID (06/09 - ) -Treat sepsis with gentle hydration normal saline 50 cc an hour- hold for increasing oxygen requirements - follow up repeat blood and sputum cultures 06/09 - Wean oxygen to keep O2 sat >/=92%. Continues intermittent BiPAP and nonrebreather - Pulm/crit care consulted, appreciate recs. Nebs scheduled q4hrs with suction q4hrs. - OK for transfer to subacute when stable - Infectious disease consulted Dr. Serrano. Appreciate recommendations - Appreciate general surgery recommendations: Dr. Ruffin - Tylenol 650mg PO q6hrs PRN pain or fever - Duonebs - follow up legionella, urine (sent today) #skin breakdown around nares bilaterally from patient movement of HFNC - improving -Discontinue high flow nasal cannula - wound care consult - nonrebreather or simple mask to avoid further skin breakdown or BIPAP #hx HTN but now requiring PRN midodrine at SNF for intermittent hypotension #hx HFpEF (LVEF 55%), with most recent TTE on 05/29/19 showing EF 40-45% #hx #hx HLD - EKG with sinus tachycardia, TWI in lateral leads (no prior in chart for comparison). Troponin negative on admission. Low suspicion for acute ACS - Continue home midodrine 5mg PO TID PRN SBP<90 - Can resume home statin once able to tolerate PO - holding CLARICE-I, Beta Sadiq given intermittent hypotension - Appreciate cardiology recommendations: Dr. Owen - consider spot lasix dose if fluid overload is noted. ( done 06/05 ). Pro-BNP downtrending. Gentle fluids as above #Encephalopathy in setting of sepsis and underlying Down's syndrome -appears to be back to baseline - Baseline nonverbal and bedbound - Treat sepsis as above - Limit sedating medications as able #Mild transaminitis - resolved #Hepatitis B surface antigen positive. Appears to have acute hepatitis B infection > Ultrasound unremarkable > Hepatitis IgM core ab positive, surface Ab negative, BE ab positive - AST 38 and ALT 100 on admission, - Can resume home statin once able to tolerate PO -Check further hepatitis B serologies, f/u hepatitis B DNA -Will need outpatient hepatotology follow up #Chronic hyponatremia - improving - Na 134 on admission, now 136 - Per records from SNF, Na was 132 on 05/05/19 - Monitor BMP #hx Hypothyroid - TSH 3.7 -Levothyroxine 25 mg IV daily. Will switch to p.o. once patient able to tolerate #hx GERD - Pepcid for home omeprazole #hx iron deficiency anemia - H/H stable - Continue home ferrous sulfate 325mg PO daily #Right heel wound - Present on admission - Appreciate wound care/surgery consult - Wound care as per recs #Dysphasia Supportive ST care and trials as he used to be able to eat 100 % with assistance at SNF -Appreciate ST recommendations - video swallow today # Thrombocytosis with platelets of 541,000 most likely reactive. - Monitor #hypokalemia - replete with 40 MEQ KCL PO and 20 MEQ IV today #Goals of care -Discussed with healthcare decision-maker Mr. Sheriff the patient's cousin for 33 minutes on 06/05/19. Discussed goals of care including tube feedings. Mr. Sheriff would like to continue CODE STATUS of DNR/DNI as per the POLST, however he is okay with NG tube feedings temporarily. No PEG -TF started 06/05. May need to rediscuss correction feeding i.e. PEG if still unable to pass swallow test FEN IVF: none DVT ppx: Heparin subq GI ppx: Pepcid Code Status: DNR/DNI with limited interventions, no PEG Diet: Tube feedings, Bolus since 06/08/19 Dispo: [facility] for intermittent BiPAP Reason for continued hospitalization: Acute hypoxic respiratory failure 37 minutes spent on this encounter. Discussed with RN, speech therapy, and case management. > 50% spent on counseling and care coordination. Time of note may not reflect time patient was seen. Subjective Date patient seen: Jun 11, 2019 ROS Limited/Unobtainable: Yes - Patient nonverbal at baseline Allergies: Coded Allergies: KETAMINE (Verified Allergy, Unknown, 05/29/19) NSAIDS (NON-STEROIDAL ANTI-INFLAMMA (Verified Allergy, Unknown, 05/29/19) Subjective No acute events overnight per nursing. He was on BiPAP overnight. On Venturi mask at 8 to 10 L saturating 98 to 100%. Patient is more alert today. No other acute events. Further subjective history unable to be obtained as patient is nonverbal Objective Last 24 Hour Vital Signs Date Time Temp Pulse Resp B/P (MAP) Pulse Ox O2 Delivery O2 Flow Rate FiO2 06/11/19 08:00 98.3 76 19 90/58 (69) 100 06/11/19 08:00 Bi-pap 06/11/19 08:00 50 06/11/19 07:42 78 25 97 Facial 50 87 25 97 Bi-Pap 50 06/11/19 07:40 97 Bi-Pap 50 06/11/19 07:35 87 06/11/19 05:26 84 23 100 Facial 50 06/11/19 04:00 89 06/11/19 04:00 50 06/11/19 04:00 Bi-pap 06/11/19 04:00 98.6 90 21 91/52 (65) 98 06/11/19 03:32 86 22 100 Bi-Pap 50 06/11/19 03:17 83 22 100 Bi-Pap 50 06/11/19 03:17 83 22 100 Facial 50 06/11/19 01:05 71 22 99 Facial 50 06/11/19 00:00 110 06/11/19 00:00 99.8 85 25 98/59 (72) 97 06/11/19 00:00 Bi-pap 06/11/19 00:00 50 06/10/19 23:25 102 27 99 Facial 50 06/10/19 23:25 102 27 99 Bi-Pap 50 06/10/19 23:10 88 20 99 Venturi Mask 12.0 50 06/10/19 20:00 8.0 06/10/19 20:00 100.1 110 24 109/56 (73) 98 06/10/19 20:00 107 06/10/19 20:00 Simple Mask 8.0 06/10/19 19:21 101 20 98 Venturi Mask 12.0 50 06/10/19 19:06 91 20 96 Venturi Mask 12.0 50 06/10/19 19:06 96 Venturi Mask 12.0 50 06/10/19 19:06 91 20 96 Venturi Mask 12.0 50 06/10/19 16:00 Simple Mask 8.0 06/10/19 16:00 101 06/10/19 16:00 100.1 110 24 116/53 (74) 100 06/10/19 16:00 8.0 06/10/19 14:40 84 20 100 Simple Mask 8.0 60 80 20 99 06/10/19 12:00 Simple Mask 8.0 06/10/19 12:00 8.0 06/10/19 12:00 99.7 112 25 108/64 (79) 96 06/10/19 12:00 92 Intake and Output 06/10/19 06/11/19 19:00 07:00 Intake Total 816.7 ml 896.8 ml Output Total 300 ml Balance 516.7 ml 896.8 ml Intake Oral 474 ml Free Water 40 ml 100 ml IV Total 776.7 ml 322.8 ml Output Urine Total 300 ml # Voids 1 2 Laboratory Tests 06/11/19 03:20: White Blood Count 12.2H, Red Blood Count 3.23L, Hemoglobin 10.6L, Hematocrit 31.0L, Mean Corpuscular Volume 96, Mean Corpuscular Hemoglobin 32.7H, Mean Corpuscular Hemoglobin Concent 34.1, Red Cell Distribution Width 12.5, Platelet Count 468H, Mean Platelet Volume 6.1L, Neutrophils (%) (Auto) 72.2, Lymphocytes (%) (Auto) 19.1L, Monocytes (%) (Auto) 6.4, Eosinophils (%) (Auto) 1.2, Basophils (%) (Auto) 1.2, Sodium Level 139, Potassium Level 3.7, Chloride Level 103, Carbon Dioxide Level 29, Anion Gap 8, Blood Urea Nitrogen 9, Creatinine 1.0 , Estimat Glomerular Filtration Rate > 60, Glucose Level 94, Calcium Level 9.1 Height (Feet): 5 Height (Inches): 1.00 Weight (Pounds): 125 General Appearance: WD/WN, no apparent distress, alert EENT: PERRL/EOMI, normal ENT inspection Neck: non-tender, normal alignment, supple Cardiovascular: normal peripheral pulses, normal rate, regular rhythm, no JVD Respiratory/Chest: chest wall non-tender, other - Coarse breath sounds bilaterally, improved Abdomen: normal bowel sounds, non tender, soft Extremities: normal range of motion, non-tender, other - No lower extremity edema bilaterally Neurologic: blender II-XII grossly normal, no motor/sensory deficits, alert Joseph Durán D.O. Jun 11, 2019 11:44
[2019-06-11 12:00] VITALS: BP 92/58
[2019-06-11] MEDS ORDERED: Varibar Honey 250ml MC PRN (13:45)
[2019-06-11] MEDS ORDERED: Varibar Pudding 230ml MC PRN (13:45)
[2019-06-11] MEDS ORDERED: Varibar Nectar 240ml MC PRN (13:45)
--- NOTE | 2019-06-11 15:57 | Infectious Diseases Prog Note ---
Assessment/Plan Assessment/Plan ASSESSMENT AND PLAN: 1. aspiration pna/HCAP, sepsis, leukocytosis, fevers, sirs, sob, bipap recurrent fevers - ? new nosocomial infection, fungemia risk - meropenem, vancomycin, amikacin, diflucan - f/u on sputum culture, labs and chest x-ray - clinically improved today, less sob, off bipap - f/u on swallow study - skin care per protocol - d/w Dr. Durán - deescalate abx once all cultures back 2. Hypoxic. Continue treatment per Pulmonary Medicine. The patient is on a breathing mask. 3. Right heel wound was noted. He has been seen by Surgery. Upon reviewing the Surgery note, it does not seem to be acutely infected. Continue wound care per Surgery. 4. The patient has history of Down syndrome. 5. Nonverbal. 6. Hypothyroidism. Continue thyroid supplementation. 7. Hypertension. Continue blood pressure treatment per primary care team. 8. Congestive heart failure. 9. Hyperlipidemia. 10. Anemia. 11. Gastroesophageal reflux disease. 12. . 13. Hypoxia. 14. Breathing mask. 15. Wound care protocol. Continue wound treatment per protocol. 16. Allergies to ketamine and NSAIDs. 17. Social history is negative. 18. Family history is noncontributory. 19. MAR is noted. 20. Case was discussed with RN. 21. Case was discussed with Dr. Durán. 22. mrsa and vre colonization Subjective Constitutional: Reports: fever - fever curve better , other - more alert, off bipap HEENT: Reports: congestion - less Respiratory: Reports: shortness of breath - less Cardiovascular: Denies: chest pain Gastrointestinal/Abdominal: Denies: nausea, vomiting, diarrhea Genitourinary: Reports: other - + jones Neurologic: Denies: headache Psychiatric: Denies: depression Skin: Denies: rash Hematologic: Denies: bleeding Musculoskeletal: Denies: pain Allergies: Coded Allergies: KETAMINE (Verified Allergy, Unknown, 05/29/19) NSAIDS (NON-STEROIDAL ANTI-INFLAMMA (Verified Allergy, Unknown, 05/29/19) Objective Vital Signs Last 24 Hour Vital Signs Date Time Temp Pulse Resp B/P (MAP) Pulse Ox O2 Delivery O2 Flow Rate FiO2 06/11/19 15:31 91 24 100 Venturi Mask 12.0 50 92 24 96 06/11/19 12:11 86 24 99 Venturi Mask 12.0 50 88 24 95 06/11/19 12:00 8.0 06/11/19 12:00 98.1 89 18 92/58 (69) 99 06/11/19 12:00 Bi-pap 06/11/19 11:37 83 06/11/19 08:00 98.3 76 19 90/58 (69) 100 06/11/19 08:00 Bi-pap 06/11/19 08:00 50 06/11/19 07:42 78 25 97 Facial 50 87 25 97 Bi-Pap 50 06/11/19 07:40 97 Bi-Pap 50 06/11/19 07:35 87 06/11/19 05:26 84 23 100 Facial 50 06/11/19 04:00 89 06/11/19 04:00 50 06/11/19 04:00 Bi-pap 06/11/19 04:00 98.6 90 21 91/52 (65) 98 06/11/19 03:32 86 22 100 Bi-Pap 50 06/11/19 03:17 83 22 100 Bi-Pap 50 06/11/19 03:17 83 22 100 Facial 50 06/11/19 01:05 71 22 99 Facial 50 06/11/19 00:00 110 06/11/19 00:00 99.8 85 25 98/59 (72) 97 06/11/19 00:00 Bi-pap 06/11/19 00:00 50 06/10/19 23:25 102 27 99 Facial 50 06/10/19 23:25 102 27 99 Bi-Pap 50 06/10/19 23:10 88 20 99 Venturi Mask 12.0 50 06/10/19 20:00 8.0 06/10/19 20:00 100.1 110 24 109/56 (73) 98 06/10/19 20:00 107 06/10/19 20:00 Simple Mask 8.0 06/10/19 19:21 101 20 98 Venturi Mask 12.0 50 06/10/19 19:06 91 20 96 Venturi Mask 12.0 50 06/10/19 19:06 96 Venturi Mask 12.0 50 06/10/19 19:06 91 20 96 Venturi Mask 12.0 50 06/10/19 16:00 Simple Mask 8.0 06/10/19 16:00 101 06/10/19 16:00 100.1 110 24 116/53 (74) 100 06/10/19 16:00 8.0 Height (Feet): 5 Height (Inches): 1.00 Weight (Pounds): 125 General Appearance: no acute distress HEENT: normocephalic, atraumatic, anicteric, mucous membranes moist Respiratory/Chest: crackles/rales, rhonchi - bilaterally - less Cardiovascular: normal rate, regular rhythm, no gallop/murmur, no JVD Abdomen: normal bowel sounds, soft, non tender, no organomegaly, non distended Genitourinary: other - + jones - urine clear Extremities: no cyanosis Skin: no rash 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 Most likely on the basis of pulmonary edema; other etiologies including inflammatory also possible. Posterior reticular opacities and nodular airspace opacities, could indicate active inflammatory changes or airspace edema Minimal pericardial thickening or fluid Mild diffuse esophageal wall thickening, could indicate esophagitis. Correlate with clinical findings Chest x-ray - 06/03/19 - Procedure: XRAY Chest 1v Indication: Shortness of breath Technique: One view of the chest Comparison: 2018 Findings: Body habitus limits evaluation. There is diffuse bilateral interstitial and airspace disease, increased from the previous exam. There is persistent right greater than left pleural fluid Impression: Worsening of bilateral interstitial and airspace edema, since prior study of 2 days earlier Chest x-ray - 06/06/19 - COMPARISON: Chest x-ray, 06 03 19 FINDINGS: Lungs: Interstitial thickening and airspace opacities bilaterally have moderately improved. Somewhat worsening right lower lung airspace opacities. Pleural space: Small bilateral pleural effusions, worse on the right, similar to prior study. Left costophrenic angle not on the [id number]. No pneumothorax. Heart: Unremarkable. No cardiomegaly. Mediastinum: Unremarkable. Bones joints: Thoracolumbar scoliosis. Tubes, lines and devices: NG tube traverses the diaphragm. IMPRESSION: 1. Interstitial thickening and airspace opacities bilaterally have moderately improved. Somewhat worsening right lower lung airspace opacities, somewhat consolidative. 2. Small bilateral pleural effusions, worse on the right, similar to prior study. Left costophrenic angle not on the [id number]. Chest x-ray - 06/09/19 - Procedure: XRAY Chest 1v Indication: Dyspnea Technique: One view of the chest Comparison: 06/06/2019 Findings: Nasogastric tube is again demonstrated. Bilateral interstitial airspace opacities, right basilar dense consolidation, bilateral pleural effusions are unchanged. Impression: Unchanged, over 3 days, findings as above. Chest x-ray - 06/11/19 - Procedure: XRAY Chest 1v Indication: Shortness of breath Technique: One view of the chest Comparison: 06/09/2019 Findings: Less optimal inspiration currently. Right basilar and left retrocardiac infiltrates are unchanged. Bilateral pleural effusions are unchanged. Impression: Unchanged, over 2 days, findings as above. Microbiology Date/Time Source Procedure Growth Status 06/09/19 18:35 Blood Blood Culture - Preliminary NO GROWTH AFTER 24 HOURS Resulted 06/01/19 14:00 Sputum Gram Stain - Final Complete 06/01/19 14:00 Sputum Sputum Culture - Final NORMAL UPPER RESPIRATORY ANAMARIA PRESENT Complete 06/10/19 06:24 Indwelling Cath Urine Culture - Preliminary NO GROWTH Resulted 05/29/19 21:00 Rectum - Final NO CARBAPENEM-RESISTANT ENTEROBACTERI... Complete Microbiology Date/Time Source Procedure Growth Status 06/09/19 18:35 Blood Blood Culture - Preliminary NO GROWTH AFTER 24 HOURS Resulted 06/09/19 18:20 Blood Blood Culture - Preliminary NO GROWTH AFTER 24 HOURS Resulted 06/10/19 06:24 Indwelling Cath Urine Culture - Preliminary NO GROWTH Resulted Laboratory Tests Test 06/11/19 03:20 White Blood Count 12.2 K/UL (4.8-10.8) H Red Blood Count 3.23 M/UL (4.70-6.10) L Hemoglobin 10.6 G/DL (14.2-18.0) L Hematocrit 31.0 % (42.0-52.0) L Mean Corpuscular Volume 96 FL (80-99) Mean Corpuscular Hemoglobin 32.7 PG (27.0-31.0) H Mean Corpuscular Hemoglobin Concent 34.1 G/DL (32.0-36.0) Red Cell Distribution Width 12.5 % (11.6-14.8) Platelet Count 468 K/UL (150-450) H Mean Platelet Volume 6.1 FL (6.5-10.1) L Neutrophils (%) (Auto) 72.2 % (45.0-75.0) Lymphocytes (%) (Auto) 19.1 % (20.0-45.0) L Monocytes (%) (Auto) 6.4 % (1.0-10.0) Eosinophils (%) (Auto) 1.2 % (0.0-3.0) Basophils (%) (Auto) 1.2 % (0.0-2.0) Sodium Level 139 MMOL/L (136-145) Potassium Level 3.7 MMOL/L (3.5-5.1) Chloride Level 103 MMOL/L (98-107) Carbon Dioxide Level 29 MMOL/L (21-32) Anion Gap 8 mmol/L (5-15) Blood Urea Nitrogen 9 mg/dL (7-18) Creatinine 1.0 MG/DL (0.55-1.30) Estimat Glomerular Filtration Rate > 60 mL/min (>60) Glucose Level 94 MG/DL (74-106) Calcium Level 9.1 MG/DL (8.5-10.1) Current Medications Medications (Trade) Dose Ordered Sig/Kendra Route PRN Reason Start Time Stop Time Status Last Admin Dose Admin Acetaminophen (Tylenol) 650 mg Q6H PRN RECTAL Mild Pain (Pain Scale 1-3) 05/31/19 01:15 06/30/19 01:14 06/09/19 16:19 Acetylcysteine (Mucomyst) 100 mg Q4HRT [facility] 05/31/19 17:00 06/30/19 16:59 06/11/19 15:33 Albuterol/ Ipratropium (Albuterol/ Ipratropium) 3 ml Q4HRT [facility] 06/05/19 19:00 06/12/19 18:59 06/11/19 15:33 Amikacin Protocol (Amikacin pharmacy to dose) 1 ea DAILY PRN MISC Per rx protocol 06/09/19 17:45 07/09/19 17:44 Amikacin Sulfate 700 mg/Sodium Chloride 112.8 ml @ 112.8 mls/ hr Q24H IV 06/09/19 20:00 06/16/19 19:59 06/10/19 20:12 Ascorbic Acid (Vitamin C) 500 mg DAILY NG 06/06/19 09:00 07/02/19 08:59 06/11/19 08:47 Barium Sulfate (Varibar Honey) 250 ml NOW PRN MC RAD 06/11/19 13:45 06/14/19 13:41 Barium Sulfate (Varibar Jet) 240 ml NOW PRN MC RAD 06/11/19 13:45 06/14/19 13:41 Barium Sulfate (Varibar Pudding) 230 ml NOW PRN MC RAD 06/11/19 13:45 06/14/19 13:41 Bisacodyl (Dulcolax) 10 mg DAILYPRN PRN RECTAL constipation 05/31/19 10:45 06/29/19 10:44 Cyanocobalamin (Vitamin B-12 Tab) 100 mcg DAILY NG 06/05/19 09:00 06/30/19 08:59 06/11/19 08:47 Docusate Sodium (Colace) 100 mg EVERY 12 HOURS NG 06/05/19 21:00 07/05/19 20:59 06/11/19 08:46 Famotidine (Pepcid I.v.) 20 mg Q12HR IVP 05/31/19 09:00 06/30/19 08:59 06/11/19 08:47 Ferrous Sulfate (Feosol) 325 mg DAILY NG 06/05/19 09:00 07/05/19 08:59 06/11/19 08:46 Fluconazole/ Sodium Chloride 200 ml @ 200 mls/hr Q24H IV 06/09/19 18:00 06/16/19 17:59 06/10/19 17:28 Heparin Sodium (Porcine) (Heparin 5000 units/ml) 5,000 units EVERY 12 HOURS SUBQ 05/31/19 09:00 06/29/19 08:59 06/11/19 08:49 Levothyroxine Sodium (Synthroid) 25 mcg DAILY IV 06/04/19 10:30 07/04/19 10:29 06/11/19 09:03 Meropenem 1 gm/ Sodium Chloride 100 ml @ 200 mls/hr Q8HR IVPB 06/09/19 22:00 06/14/19 21:59 06/11/19 15:06 Midodrine (Pro-Amatine) 5 mg TIDPRN PRN NG SBP<90 06/05/19 15:00 06/29/19 12:59 06/07/19 03:36 Multivitamins (Multivitamins) 1 tab DAILY NG 06/05/19 09:00 07/02/19 08:59 06/11/19 08:47 Vancomycin HCl (Vanco rx to dose) 1 ea DAILY PRN MISC Per rx protocol 06/09/19 17:45 07/08/19 07:59 Vancomycin HCl 500 mg/Dextrose 110 ml @ 110 mls/hr Q12HR@1000,2200 IVPB 06/10/19 10:00 06/15/19 09:59 06/11/19 10:10 Zinc Sulfate (Zinc Sulfate) 220 mg DAILY NG 06/05/19 09:00 06/15/19 08:59 06/11/19 08:47 Rafia Rand MD Jun 11, 2019 15:57
[2019-06-11 16:00] VITALS: BP 101/62
--- NOTE | 2019-06-11 17:34 | Surgery Progress Note ---
Surgery Progress Note Subjective Additional Comments no acute events Objective Last 24 Hour Vital Signs Date Time Temp Pulse Resp B/P (MAP) Pulse Ox O2 Delivery O2 Flow Rate FiO2 06/11/19 16:00 98.1 95 18 101/62 (75) 95 06/11/19 15:38 101 06/11/19 15:31 91 24 100 Venturi Mask 12.0 50 92 24 96 06/11/19 12:11 86 24 99 Venturi Mask 12.0 50 88 24 95 06/11/19 12:00 8.0 06/11/19 12:00 98.1 89 18 92/58 (69) 99 06/11/19 12:00 Bi-pap 06/11/19 11:37 83 06/11/19 08:00 98.3 76 19 90/58 (69) 100 06/11/19 08:00 Bi-pap 06/11/19 08:00 50 06/11/19 07:42 78 25 97 Facial 50 87 25 97 Bi-Pap 50 06/11/19 07:40 97 Bi-Pap 50 06/11/19 07:35 87 06/11/19 05:26 84 23 100 Facial 50 06/11/19 04:00 89 06/11/19 04:00 50 06/11/19 04:00 Bi-pap 06/11/19 04:00 98.6 90 21 91/52 (65) 98 06/11/19 03:32 86 22 100 Bi-Pap 50 06/11/19 03:17 83 22 100 Bi-Pap 50 06/11/19 03:17 83 22 100 Facial 50 06/11/19 01:05 71 22 99 Facial 50 06/11/19 00:00 110 06/11/19 00:00 99.8 85 25 98/59 (72) 97 06/11/19 00:00 Bi-pap 06/11/19 00:00 50 06/10/19 23:25 102 27 99 Facial 50 06/10/19 23:25 102 27 99 Bi-Pap 50 06/10/19 23:10 88 20 99 Venturi Mask 12.0 50 06/10/19 20:00 8.0 06/10/19 20:00 100.1 110 24 109/56 (73) 98 06/10/19 20:00 107 06/10/19 20:00 Simple Mask 8.0 06/10/19 19:21 101 20 98 Venturi Mask 12.0 50 06/10/19 19:06 91 20 96 Venturi Mask 12.0 50 06/10/19 19:06 96 Venturi Mask 12.0 50 06/10/19 19:06 91 20 96 Venturi Mask 12.0 50 I&O Intake and Output 06/10/19 06/11/19 18:59 06:59 Intake Total 766.7 ml 946.8 ml Output Total 300 ml Balance 466.7 ml 946.8 ml Intake Oral 474 ml Free Water 40 ml 100 ml IV Total 726.7 ml 372.8 ml Output Urine Total 300 ml # Voids 1 2 Dressing: saturated Wound: other Cardiovascular: RSR Respiratory: decreased breath sounds Abdomen: soft, present bowel sounds, other Extremities: no tenderness, no cyanosis Laboratory Tests Test 06/11/19 03:20 White Blood Count 12.2 K/UL (4.8-10.8) H Red Blood Count 3.23 M/UL (4.70-6.10) L Hemoglobin 10.6 G/DL (14.2-18.0) L Hematocrit 31.0 % (42.0-52.0) L Mean Corpuscular Volume 96 FL (80-99) Mean Corpuscular Hemoglobin 32.7 PG (27.0-31.0) H Mean Corpuscular Hemoglobin Concent 34.1 G/DL (32.0-36.0) Red Cell Distribution Width 12.5 % (11.6-14.8) Platelet Count 468 K/UL (150-450) H Mean Platelet Volume 6.1 FL (6.5-10.1) L Neutrophils (%) (Auto) 72.2 % (45.0-75.0) Lymphocytes (%) (Auto) 19.1 % (20.0-45.0) L Monocytes (%) (Auto) 6.4 % (1.0-10.0) Eosinophils (%) (Auto) 1.2 % (0.0-3.0) Basophils (%) (Auto) 1.2 % (0.0-2.0) Sodium Level 139 MMOL/L (136-145) Potassium Level 3.7 MMOL/L (3.5-5.1) Chloride Level 103 MMOL/L (98-107) Carbon Dioxide Level 29 MMOL/L (21-32) Anion Gap 8 mmol/L (5-15) Blood Urea Nitrogen 9 mg/dL (7-18) Creatinine 1.0 MG/DL (0.55-1.30) Estimat Glomerular Filtration Rate > 60 mL/min (>60) Glucose Level 94 MG/DL (74-106) Calcium Level 9.1 MG/DL (8.5-10.1) Plan Problems: (1) Ulcer of right heel Assessment & Plan: This is a 54-year-old male with multiple medical comorbidities who is currently presented for fever and tachycardia. Patient identified to have abnormal decubitus pressure ulcer on right heel. On examination patient has a stage III full-thickness right heel decubitus ulcer periwound intact but mildly macerated. Surrounding erythema. No drainage. No underlying abscess. No bone palpable. No foul odor. Labs noted and identified. No signs of acute active inflammatory or infectious process from this. Patient does have a leukocytosis that significant. Will continue work-up for etiology Will recommend local wound care. Apply Thera honey followed by up to foam dressing daily. We will monitor. Thank you for this consultation we will follow with recommendations d/c planning (2) Fever Assessment & Plan: Low-grade fevers, tachycardia, leukocytosis, abnormal labs Head to toe skin integrity and wound eval completed as above UA noted chest x-ray noted Possible aspiration pneumonia Continue antibiotics as per infectious disease IV fluids Patient not eating well and currently DNR/DNI and does not have feeding tube. Will get speech and swallow eval prior to diet (3) Tachycardia (4) Severe sepsis Assessment & Plan: DAILY ESTIMATED NEEDS: Needs based on wound, wasting, pulmonary/ 46kg 30-35 kcals/kg 6609-4062 total kcals 1.3-1.8 g protein/kg 60-83 g total protein 25-30 mL/kg 5533-1712 total fluid mLs NUTRITION DIAGNOSIS: * Swallowing difficulty R/T dysphagia, respiratory status as evidenced by h/o Down's syndrome, pt on pureed texture diet [employer] PROVID[employer], currently NPO, on BIPAP. * Increased kcal/prot needs R/T wound healing and wasting as evidenced by pt admitted w/ stage 3 rt heel wound, w/ mild-moderate generalized wasting. CURRENT DIET:NPO PO DIET RECOMMENDATIONS: IF SAFE FOR PO -> liberalized REGULAR/ texture per FULL DECATOR OPERATOR + Ensure Enlive TID ENTERAL NUTRITION RECOMMENDATIONS: CONSULT RD IF TF PART OF POC AND INDICATED: PER POLST, NO TF AT THIS TIME ADDITIONAL RECOMMENDATIONS: * Calibrated bedscale wt - bedscale wt per RD= 101lbs vs EMR [id number]=[id number] * Monitor NPO status, ability to feed - FULL DECATOR OPERATOR eval pending, pt on BIPAP, altered. TF indicates no TF at this time * Monitor lytes, replete as needed * Wound healing: once able to feed-> add MVI w/ min x 1, Vit C 500mg QD -> add ZnSO4 220mg QD x 10 days -> Jeremy 1pkt BID as tolerated Alexis Ruffin Jun 11, 2019 17:34
[2019-06-11 20:00] VITALS: BP 109/86
[2019-06-11] MEDS ORDERED: LORazepam Inj 2mg/ml 1ml IV PRN (20:30)
[2019-06-11] MEDS ORDERED: Morphine Sulfate 2mg/ml Inj(IV/IM USE ONLY) IVP PRN (20:34)
[2019-06-11] MEDS: Amikacin 700 MG in NS 110 ML IV SCH (20:58)
[2019-06-12] VITALS (10 sets, daily range): BP systolic 88–120; BP diastolic 41–75
[2019-06-12] MEDS: Albuterol/Ipratropium 3ml neb HHN SCH ×4 (03:18→14:36)
[2019-06-12 04:38] LABS: BASOPHILS % (AUTO) 1.3 % (0.0-2.0); EOSINOPHILS % (AUTO) 1.3 % (0.0-3.0); HEMATOCRIT 31.9 % (42.0-52.0); HEMOGLOBIN 10.7 G/DL (14.2-18.0); LYMPHOCYTES % (AUTO) 28.8 % (20.0-45.0); MEAN CORPUSCULAR VOLUME 96 FL (80-99); MONOCYTES % (AUTO) 6.4 % (1.0-10.0); NEUTROPHILS % (AUTO) 62.2 % (45.0-75.0); PLATELET COUNT 443 K/UL (150-450); RED BLOOD COUNT 3.34 M/UL (4.70-6.10); RED CELL DISTRIBUTION WIDTH 12.3 % (11.6-14.8); WHITE BLOOD COUNT 12.1 K/UL (4.8-10.8)
[2019-06-12 04:51] LABS: ANION GAP 8 mmol/L (5-15); BLOOD UREA NITROGEN 10 mg/dL (7-18); CALCIUM 8.7 MG/DL (8.5-10.1); CARBON DIOXIDE 28 MMOL/L (21-32); CHLORIDE 100 MMOL/L (98-107); POTASSIUM 3.9 MMOL/L (3.5-5.1); SODIUM 136 MMOL/L (136-145)
[2019-06-12] MEDS: Docusate 100mg/10ml Liq NG SCH ×2 (09:00→20:10)
[2019-06-12] MEDS: Vitamin B-12 100mcg tab NG SCH (09:00)
[2019-06-12] MEDS: Heparin 5000 units/ml inj SUBQ SCH ×2 (09:00→20:17)
[2019-06-12] MEDS: Ascorbic Acid 500mg tab NG SCH (09:00)
[2019-06-12] MEDS: Zinc Sulfate 220mg cap NG SCH (09:00)
[2019-06-12] MEDS: Ferrous Sulfate 300 MG/5 ML UDC NG SCH (09:00)
--- NOTE | 2019-06-12 09:10 | Anethesia Preoperative Eval ---
Anesthesia Pre-op PMH/ROS General Date of Evaluation: Jun 12, 2019 Time of Evaluation: 09:05 Anesthesiologist: Shira Reynoso CRNA ASA Score: ASA 3 Mallampati Score Class I : Soft palate, uvula, fauces, pillars visible Class II: Soft palate, uvula, fauces visible Class III: Soft palate, base of uvula visible Class IV: Only hard plate visible Mallampati Classification: Class II Surgeon: Joanne Diagnosis: pneumonia, respiratory failure Surgical Procedure: PEG insertion Anesthesia History: none Family History: no anesthesia problems Allergies: Coded Allergies: KETAMINE (Verified Allergy, Unknown, 05/29/19) NSAIDS (NON-STEROIDAL ANTI-INFLAMMA (Verified Allergy, Unknown, 05/29/19) Medications: see eMAR Patient NPO?: Yes NPO Date: Jun 12, 2019 NPO Time: 00:00 Past Medical History Cardiovascular: Reports: HTN, arrhythmia - tachycardia, other - CHF, aortic stenosis, mild PHTN, hyperlipidemia; Denies: CAD, AR, valve dz Pulmonary: Reports: other - pneumonia, respiratory failure, on BiPAP/Venture mask; Denies: asthma, COPD, REJI Gastrointestinal/Genitourinary: Reports: GERD; Denies: CRI, ESRD, other Neurologic/Psychiatric: Reports: other - developmental delay, trisomy 21; Denies: dementia, CVA, depression/anxiety, TIA Endocrine: Reports: hypothyroidism; Denies: DM, steroids, other HEENT: Denies: cataract (L), cataract (R), glaucoma, QAWALANGIN (L), QAWALANGIN (R), other Hematology/Immune: Reports: anemia; Denies: DVT, bleeding disorder, other Musculoskeletal/Integumentary: Reports: other - decubitus ulcer; Denies: OA, RA, DJD, DDD, edema Other: other - Trisomy 21 PMH Narrative: as noted above PSxH Narrative: see H & P Anesthesia Pre-op Phys. Exam Physician Exam Last Vital Signs Date Time Temp Pulse Resp B/P (MAP) Pulse Ox O2 Delivery O2 Flow Rate FiO2 06/12/19 08:00 98.6 86 20 96/59 (71) 93 06/12/19 08:00 Venturi Mask 06/12/19 04:59 12.0 50 Constitutional: NAD Neurologic: other - developmental delay, syndromic feature Cardiovascular: RRR Respiratory: CTA Gastrointestinal: S/NT/ND Airway Exam Mallampati Score: Class II MO: full - large tongue Neck: FROM TMD: > 3 FB Teeth: intact Dentures: no upper, no lower Anesthesia Pre-op A/P Labs Hematology Test 06/12/19 03:30 White Blood Count 12.1 K/UL (4.8-10.8) H Red Blood Count 3.34 M/UL (4.70-6.10) L Hemoglobin 10.7 G/DL (14.2-18.0) L Hematocrit 31.9 % (42.0-52.0) L Mean Corpuscular Volume 96 FL (80-99) Mean Corpuscular Hemoglobin 32.2 PG (27.0-31.0) H Mean Corpuscular Hemoglobin Concent 33.7 G/DL (32.0-36.0) Red Cell Distribution Width 12.3 % (11.6-14.8) Platelet Count 443 K/UL (150-450) Mean Platelet Volume 6.1 FL (6.5-10.1) L Neutrophils (%) (Auto) 62.2 % (45.0-75.0) Lymphocytes (%) (Auto) 28.8 % (20.0-45.0) Monocytes (%) (Auto) 6.4 % (1.0-10.0) Eosinophils (%) (Auto) 1.3 % (0.0-3.0) Basophils (%) (Auto) 1.3 % (0.0-2.0) Chemistry Test 06/12/19 03:30 Sodium Level 136 MMOL/L (136-145) Potassium Level 3.9 MMOL/L (3.5-5.1) Chloride Level 100 MMOL/L (98-107) Carbon Dioxide Level 28 MMOL/L (21-32) Anion Gap 8 mmol/L (5-15) Blood Urea Nitrogen 10 mg/dL (7-18) Creatinine 1.0 MG/DL (0.55-1.30) Estimat Glomerular Filtration Rate > 60 mL/min (>60) Glucose Level 93 MG/DL (74-106) Calcium Level 8.7 MG/DL (8.5-10.1) Studies Pre-op Studies: EKG - sinus tachycardia 05/29/19, CXR - (B) infiltrates, plerual effusion, echo - LVEF 55%, no evidence of LVH, aortic valve area cm2, mild PTHN, Risk Assessment & Plan Assessment: ASA 3, ok to proceed Plan: MAC Status Change Before Surgery: No Pre-Antibiotics Given Within 1 Hr of Incision: Shira Posey CRNA Jun 12, 2019 09:10
[2019-06-12] MEDS: Vancomycin 500mg/D5W 110ml IVPB SCH ×4 (09:12→22:32)
--- NOTE | 2019-06-12 10:05 | Cardiac Electrophysiology PN ---
Assessment/Plan Assessment/Plan 1. Supraventricular tachycardia. Off betablocker or CA blockers for hypotension 2. CHF due to diastolic dysfunction with elevated BNP. Off Lasix as the patient is septic and blood pressure in the borderline, already on midodrine. EF of 55%. 3. Hypotension on Midodrine. 4. Respiratory failure. On Venturi mask per Dr. Luevano due to pneumonia. 5. Severe sepsis is on broad-spectrum IV antibiotics per Dr. Rand. 6. Hypothyroidism. 7. Iron deficiency anemia. 8. Decubitus ulcer. 9. DNR and DNI 10. Down syndrome. 11. Dysphagia, Scheduled for PEG today if OK with Dr. Luevano. LUNA RN Subjective Subjective In SDU. No SVT or VT. On Venturi Mask. DNR. NPO for PEG today Objective Last 24 Hour Vital Signs Date Time Temp Pulse Resp B/P (MAP) Pulse Ox O2 Delivery O2 Flow Rate FiO2 06/12/19 09:04 94 Venturi Mask 12.0 50 06/12/19 08:03 101 06/12/19 08:00 98.6 86 20 96/59 (71) 93 06/12/19 08:00 Venturi Mask 06/12/19 07:05 102 20 94 Venturi Mask 12.0 50 103 20 92 06/12/19 04:59 112 20 95 12.0 50 06/12/19 04:00 123 06/12/19 04:00 98.3 121 20 120/44 (69) 96 06/12/19 04:00 Venturi Mask 06/12/19 03:16 Bi-Pap 06/12/19 03:16 84 14 96 Facial 50 97 16 97 Bi-Pap 50 06/12/19 01:28 84 22 98 Facial 50 06/12/19 00:00 89 06/12/19 00:00 98.5 96 20 93/51 (65) 96 06/12/19 00:00 Venturi Mask 06/11/19 23:20 Bi-Pap 06/11/19 23:16 91 23 96 Facial 50 93 22 97 Bi-Pap 50 06/11/19 22:00 50 06/11/19 21:28 102 24 94 50 06/11/19 20:00 Venturi Mask 06/11/19 20:00 98.3 101 20 109/86 (94) 95 06/11/19 20:00 104 06/11/19 19:34 96 Venturi Mask 12.0 50 06/11/19 19:30 110 20 96 12.0 50 112 22 93 06/11/19 16:00 Bi-pap 06/11/19 16:00 98.1 95 18 101/62 (75) 95 06/11/19 15:38 101 06/11/19 15:31 91 24 100 Venturi Mask 12.0 50 92 24 96 06/11/19 12:11 86 24 99 Venturi Mask 12.0 50 88 24 95 06/11/19 12:00 8.0 06/11/19 12:00 98.1 89 18 92/58 (69) 99 06/11/19 12:00 Bi-pap 06/11/19 11:37 83 Intake and Output 06/11/19 06/12/19 19:00 07:00 Intake Total 534 ml 322.8 ml Balance 534 ml 322.8 ml Intake Oral 474 ml Free Water 60 ml IV Total 322.8 ml # Voids 4 2 Laboratory Tests Test 06/11/19 20:40 06/12/19 03:30 06/12/19 04:15 Vancomycin Level Trough 19.6 ug/mL (5.0-12.0) H White Blood Count 12.1 K/UL (4.8-10.8) H Red Blood Count 3.34 M/UL (4.70-6.10) L Hemoglobin 10.7 G/DL (14.2-18.0) L Hematocrit 31.9 % (42.0-52.0) L Mean Corpuscular Volume 96 FL (80-99) Mean Corpuscular Hemoglobin 32.2 PG (27.0-31.0) H Mean Corpuscular Hemoglobin Concent 33.7 G/DL (32.0-36.0) Red Cell Distribution Width 12.3 % (11.6-14.8) Platelet Count 443 K/UL (150-450) Mean Platelet Volume 6.1 FL (6.5-10.1) L Neutrophils (%) (Auto) 62.2 % (45.0-75.0) Lymphocytes (%) (Auto) 28.8 % (20.0-45.0) Monocytes (%) (Auto) 6.4 % (1.0-10.0) Eosinophils (%) (Auto) 1.3 % (0.0-3.0) Basophils (%) (Auto) 1.3 % (0.0-2.0) Sodium Level 136 MMOL/L (136-145) Potassium Level 3.9 MMOL/L (3.5-5.1) Chloride Level 100 MMOL/L (98-107) Carbon Dioxide Level 28 MMOL/L (21-32) Anion Gap 8 mmol/L (5-15) Blood Urea Nitrogen 10 mg/dL (7-18) Creatinine 1.0 MG/DL (0.55-1.30) Estimat Glomerular Filtration Rate > 60 mL/min (>60) Glucose Level 93 MG/DL (74-106) Calcium Level 8.7 MG/DL (8.5-10.1) Urine Legionella Antigen Pending Microbiology Date/Time Source Procedure Growth Status 06/09/19 18:35 Blood Blood Culture - Preliminary NO GROWTH AFTER 48 HOURS Resulted 06/09/19 18:20 Blood Blood Culture - Preliminary NO GROWTH AFTER 48 HOURS Resulted 06/10/19 06:24 Indwelling Cath Urine Culture - Preliminary YEAST Resulted Objective HEAD AND NECK: Mild JVD. NG-tube in and NRB FM is on LUNGS: Coarse rhonchi. CARDIOVASCULAR: Regular S1 and S2 with no gallop. ABDOMEN: Soft. EXTREMITIES: No pitting edema. Valerio Owen MD Jun 12, 2019 10:05
--- NOTE | 2019-06-12 11:59 | General Progress Note ---
Assessment/Plan Problem List: (1) Severe sepsis ICD Codes: A41.9 - Sepsis, unspecified organism; R65.20 - Severe sepsis without septic shock SNOMED: 49143858 (2) Acute on chronic respiratory failure with hypoxia and hypercapnia ICD Codes: J96.21 - Acute and chronic respiratory failure with hypoxia; J96.22 - Acute and chronic respiratory failure with hypercapnia SNOMED: 04549519632873 (3) Tachycardia ICD Codes: R00.0 - Tachycardia, unspecified SNOMED: 6069620 (4) Fever ICD Codes: R50.9 - Fever, unspecified SNOMED: 287024275 (5) CHF (congestive heart failure) ICD Codes: I50.9 - Heart failure, unspecified SNOMED: 46126894 (6) Iron deficiency anemia ICD Codes: D50.9 - Iron deficiency anemia, unspecified SNOMED: 00199349 (7) GERD (gastroesophageal reflux disease) ICD Codes: K21.9 - Gastro-esophageal reflux disease without esophagitis SNOMED: 569548454 (8) HTN (hypertension) ICD Codes: I10 - Essential (primary) hypertension SNOMED: 27895650 (9) Hypothyroid ICD Codes: E03.9 - Hypothyroidism, unspecified SNOMED: 06757311 (10) Pneumonia ICD Codes: J18.9 - Pneumonia, unspecified organism SNOMED: 832418495 (11) Ulcer of right heel ICD Codes: L97.419 - Non-pressure chronic ulcer of right heel and midfoot with unspecified severity SNOMED: 651542230 Status: not improved, unchanged, deteriorating Assessment/Plan: Dwayne Gibson is a 54 yo man with PMH of Down's syndrome (nonverbal and bedbound at baseline), CHF (unknown EF), HTN, HLD, iron deficiency anemia, hypothyroid, GERD, with JANETTE 1 cm2, and bilateral foot pressure ulcers who presented from [facility] with fever, cough, and hypoxia, found with Tm 100.5, leukocytosis with left shift, and CXR suggestive of possible bilateral infiltrate, admitted for acute on chronic hypoxemic respiratory failure and sepsis 2/2 HCAP. #Acute on chronic hypoxemic/hypercapnic respiratory failure (baseline NC 2-4L) 2 /2 HCAP and right pleural effusion- minimal improvement. Improving. #Sepsis 2/2 HCAP -septic 06/09/19 (Heart rate, Temp 101.7) -resolved #Bilateral pleural effusions - stable > Tm 100.5 on admission, WBC 20.5 with bands, RR to 30s, tachycardic to 130s > Lactate 1.2 > ABG on admission 7.4/39/73/24 > BCX negative to date > F/U sputum CX > ESR 119, CRp 29, osteo of ulcer? > S/p IVF NS 30cc/kg sepsis bolus and gentle continuous D5NS IVF. HL IVF 06/05 given increased PVC on CXR and worsening respiratory failure. > Venous duplex negative for DVT > CXR 06/01/19 with worsening right sided pleural effusion, 06/06 CXR with mild improvement noted and reviewed, 06/10, unchanged, 06/11 unchanged > CT chest performed showing bilateral pneumonia and moderate pleural effusions >sputum culture: normal shoshana, though after antibiotics initiated > UA not overtly suggestive of UTI > Ct chest noncontrast showing bilateral pleural effusions -Discontinue zosyn 4.5gm IV q6hrs (05/30- 06/09) - Continue vancomycin per pharmacy (05/29- ) - Continue amikacin per infectious disease (06/09 - ) - Continue diflucan per ID (06/09 - ) - follow up repeat blood and sputum cultures 06/09 - Wean oxygen to keep O2 sat >/=92%. Continues intermittent BiPAP and nonrebreather - Pulm/crit care consulted, appreciate recs. Nebs scheduled q4hrs with suction q4hrs. - OK for transfer to subacute when stable - Infectious disease consulted Dr. Serrano. Appreciate recommendations - Appreciate general surgery recommendations: Dr. Ruffin - Tylenol 650mg PO q6hrs PRN pain or fever - Duonebs - follow up legionella, urine (sent 06/11/19) #Dysphasia #Goals of care > Patient removed NG tube overnight (06/11/19) Supportive ST care and trials as he used to be able to eat 100 % with assistance at SNF -Appreciate ST recommendations - video swallow on 06/11/19 - failed -N.p.o. for PEG tube today. Extensive discussion with medical decision-maker Mr. Sheriff, regarding reversal of CODE STATUS to full code for procedure. Mr. Sheriff was okay with a temporary reversal. Also discussed the option of hospice given that the patient has had recurrent hospitalizations for the same problem (aspiration pneumonia) over the past couple years. Mr. Sheriff would still like to proceed with the PEG tube today and continue ST for improved swallowing. Total time spent 33 minutes. -Will reverse CODE STATUS to DNR DNI after procedure -TF started on 06/05/19 #skin breakdown around nares bilaterally from patient movement of HFNC - improving -Discontinue high flow nasal cannula -Can cautiously restart nasal cannula. No signs of ulcer. Patient will not keep on the facemask so need to try a nasal cannula - wound care consult #hx HTN but now requiring PRN midodrine at SNF for intermittent hypotension #hx HFpEF (LVEF 55%), with most recent TTE on 05/29/19 showing EF 40-45% #hx #hx HLD - EKG with sinus tachycardia, TWI in lateral leads (no prior in chart for comparison). Troponin negative on admission. Low suspicion for acute ACS - Continue home midodrine 5mg PO TID PRN SBP<90 - Can resume home statin once able to tolerate PO - holding CLARICE-I, Beta Sadiq given intermittent hypotension - Appreciate cardiology recommendations: Dr. Owen - consider spot lasix dose if fluid overload is noted. ( done 06/05 ). Pro-BNP downtrending. #Metabolic Encephalopathy in setting of sepsis and underlying Down's syndrome - appears to be back to baseline - Baseline nonverbal and bedbound - Limit sedating medications as able #Mild transaminitis - resolved #Hepatitis B surface antigen positive. Appears to have acute hepatitis B infection > Ultrasound unremarkable > Hepatitis IgM core ab positive, surface Ab negative, BE ab positive - AST 38 and ALT 100 on admission, -Check further hepatitis B serologies, f/u hepatitis B DNA -Will need outpatient hepatotology follow up #Chronic hyponatremia - improving - Na 134 on admission, now 136 - Per records from SNF, Na was 132 on 05/05/19 - Monitor BMP #hx Hypothyroid - TSH 3.7 -Levothyroxine 25 mg IV daily. Will switch to p.o. once patient able to tolerate #hx GERD - Pepcid for home omeprazole #hx iron deficiency anemia - H/H stable - Continue home ferrous sulfate 325mg PO daily #Right heel wound - Present on admission - Appreciate wound care/surgery consult - Wound care as per recs # Thrombocytosis with platelets of 541,000 most likely reactive. - Monitor #hypokalemia - replete with 40 MEQ KCL PO and 20 MEQ IV today FEN IVF: none DVT ppx: Heparin subq GI ppx: Pepcid Code Status: DNR/DNI with limited interventions, no PEG Diet: Tube feedings, Bolus since 06/08/19 Dispo: SUBACUTE for intermittent BiPAP after PEG Reason for continued hospitalization: Acute hypoxic respiratory failure, dysphagia 29 minutes spent on this encounter. Discussed with RN, speech therapy, gastroenterology, and case management. > 50% spent on counseling and care coordination. An additional 33 minutes was spent discussing goals of care as detailed above. Time of note may not reflect time patient was seen. Subjective Date patient seen: Jun 12, 2019 ROS Limited/Unobtainable: Yes - Patient nonverbal at baseline Allergies: Coded Allergies: KETAMINE (Verified Allergy, Unknown, 05/29/19) NSAIDS (NON-STEROIDAL ANTI-INFLAMMA (Verified Allergy, Unknown, 05/29/19) Subjective No acute events overnight per nursing. Patient pulled out NG tube last night. Patient was again on BiPAP overnight. Continues to take off facemask. Nose is feeling much better. Will transition back to nasal cannula. N.p.o. for PEG tube today. Spoke with cousin today and is okay with change of CODE STATUS to full code for procedure. Patient is alert today. No other acute events. Further subjective history unable to be obtained as patient is nonverbal Objective Last 24 Hour Vital Signs Date Time Temp Pulse Resp B/P (MAP) Pulse Ox O2 Delivery O2 Flow Rate FiO2 06/12/19 09:04 94 Venturi Mask 12.0 50 06/12/19 08:03 101 06/12/19 08:00 98.6 86 20 96/59 (71) 93 06/12/19 08:00 Venturi Mask 06/12/19 07:05 102 20 94 Venturi Mask 12.0 50 103 20 92 06/12/19 04:59 112 20 95 12.0 50 06/12/19 04:00 123 06/12/19 04:00 98.3 121 20 120/44 (69) 96 06/12/19 04:00 Venturi Mask 06/12/19 03:16 Bi-Pap 06/12/19 03:16 84 14 96 Facial 50 97 16 97 Bi-Pap 50 06/12/19 01:28 84 22 98 Facial 50 06/12/19 00:00 89 06/12/19 00:00 98.5 96 20 93/51 (65) 96 06/12/19 00:00 Venturi Mask 06/11/19 23:20 Bi-Pap 06/11/19 23:16 91 23 96 Facial 50 93 22 97 Bi-Pap 50 06/11/19 22:00 50 06/11/19 21:28 102 24 94 50 06/11/19 20:00 Venturi Mask 06/11/19 20:00 98.3 101 20 109/86 (94) 95 06/11/19 20:00 104 06/11/19 19:34 96 Venturi Mask 12.0 50 06/11/19 19:30 110 20 96 12.0 50 112 22 93 06/11/19 16:00 Bi-pap 06/11/19 16:00 98.1 95 18 101/62 (75) 95 06/11/19 15:38 101 06/11/19 15:31 91 24 100 Venturi Mask 12.0 50 92 24 96 06/11/19 12:11 86 24 99 Venturi Mask 12.0 50 88 24 95 06/11/19 12:00 8.0 06/11/19 12:00 98.1 89 18 92/58 (69) 99 06/11/19 12:00 Bi-pap Intake and Output 06/11/19 06/12/19 19:00 07:00 Intake Total 534 ml 322.8 ml Balance 534 ml 322.8 ml Intake Oral 474 ml Free Water 60 ml IV Total 322.8 ml # Voids 4 2 Laboratory Tests 06/11/19 20:40: Vancomycin Level Trough 19.6H 06/12/19 03:30: White Blood Count 12.1H, Red Blood Count 3.34L, Hemoglobin 10.7L, Hematocrit 31.9L, Mean Corpuscular Volume 96, Mean Corpuscular Hemoglobin 32.2H, Mean Corpuscular Hemoglobin Concent 33.7, Red Cell Distribution Width 12.3, Platelet Count 443, Mean Platelet Volume 6.1L, Neutrophils (%) (Auto) 62.2, Lymphocytes ( %) (Auto) 28.8, Monocytes (%) (Auto) 6.4, Eosinophils (%) (Auto) 1.3, Basophils (%) (Auto) 1.3, Sodium Level 136, Potassium Level 3.9, Chloride Level 100, Carbon Dioxide Level 28, Anion Gap 8, Blood Urea Nitrogen 10, Creatinine 1.0, Estimat Glomerular Filtration Rate > 60, Glucose Level 93, Calcium Level 8.7 06/12/19 04:15: Urine Legionella Antigen [Pending] Height (Feet): 5 Height (Inches): 1.00 Weight (Pounds): 124 General Appearance: WD/WN, no apparent distress, alert EENT: PERRL/EOMI, other - Nares with slight irritation but much improved. No bleeding noticed. Neck: non-tender, normal alignment, supple Cardiovascular: normal peripheral pulses, normal rate, regular rhythm, no JVD Respiratory/Chest: chest wall non-tender, other - Coarse breath sounds bilaterally. Abdomen: normal bowel sounds, non tender, soft, no organomegaly Extremities: other - No lower extremity edema bilaterally. Neurologic: health and wellness manager II-XII grossly normal, no motor/sensory deficits, alert, oriented x 3 Skin: normal pigmentation, warm/dry Joseph Durán D.O. Jun 12, 2019 11:59
[2019-06-12] MEDS ORDERED: Midazolam 2mg/2ml Inj ONE ×2 (12:20→12:29)
[2019-06-12] MEDS ORDERED: NS 500ML IVPB ONE (12:30)
[2019-06-12] MEDS ORDERED: [UNRECOGNIZED DRUG - OTHER] IVP ONE (12:30)
--- NOTE | 2019-06-12 12:30 | Pre-Procedure Note/Attestation ---
Pre-Procedure Note/Attestation Complete Prior to Procedure Planned Procedure: not applicable Procedure Narrative: egd/peg Indications for Procedure Pre-Operative Diagnosis: dysphagia Attestation I attest that I discussed the nature of the procedure; its benefits; risks and complications; and alternatives (and the risks and benefits of such alternatives ), prior to the procedure, with the patient (or the patient's legal registration representative). I attest that, if there was a reasonable possibility of needing a blood transfusion, the patient (or the patient's legal registration representative) was given the [facility] standardized written summary, pursuant to the Jose Rosa Maria Blood Safety Act ([place] Health and Safety Code # 1645, as amended). I attest that I re-evaluated the patient just prior to the surgery and that there has been no change in the patient's H&P, except as documented below: Lewis Rubio MD Jun 12, 2019 12:30
--- NOTE | 2019-06-12 12:42 | Endoscopy Procedure Note ---
Endoscopy Procedure Note General Indication for Procedure: dysphagia Procedures Performed: EGD, PEG Operative Findings/Diagnosis: same Specimen: none Pt Tolerated Procedure Well: Yes Estimated Blood Loss: none Anesthesia Anesthesiologist: annamarie Anesthesia: MAC Inserted Devices Implant(s) used?: No GI Core Measures 50 yrs or older w/o bx or poly: Not Applicable 10yrs. F/U recommended: Not Applicable Lewis Rubio MD Jun 12, 2019 12:42
[2019-06-12] MEDS ORDERED: Hurricaine 20% Spray ORO SCH (13:00)
--- NOTE | 2019-06-12 13:02 | Immediate Post-Op Evaluation ---
Immediate Post-Op Evalulation Immediate Post-Op Evalulation Procedure: PEG insertion Date of Evaluation: Jun 12, 2019 Time of Evaluation: 13:01 IV Fluids: 0.9 NS 50 ml Blood Pressure Systolic: 098 Blood Pressure Diastolic: 60 Pulse Rate: 73 Respiratory Rate: 22 O2 Sat by Pulse Oximetry: 98 Temperature (Fahrenheit): 98.9 Pain Score (1-10): 0 Nausea: No Vomiting: No Complications none Patient Status: reacts, patent - OA 90mm Hydration Status: adequate Given Within 1 Hr of Incision: Shira Posey CRNA Jun 12, 2019 13:02
--- NOTE | 2019-06-12 13:10 | 48 Hour Post Anesthesia Eval ---
Post Anesthesia Evaluation Procedure: PEG insertion Date of Evaluation: Jun 12, 2019 Time of Evaluation: 13:07 Blood Pressure Systolic: 88 0: 41 Pulse Rate: 77 Respiratory Rate: 20 Temperature (Fahrenheit): 98.9 O2 Sat by Pulse Oximetry: 98 Airway: patent Nausea: No Vomiting: No Pain Intensity: 0 Hydration Status: adequate Cardiopulmonary Status: stable Mental Status/LOC: patient returned to baseline Follow-up Care/Observations: per hospitalist Post-Anesthesia Complications: none Shira Reynoso CRNA Jun 12, 2019 13:10
--- NOTE | 2019-06-12 15:41 | Surgery Progress Note ---
Surgery Progress Note Subjective Additional Comments PEG today code status appropriate appreciate great care provided by primary team during hospitalization leukocytosis exam stable labs improved Objective Last 24 Hour Vital Signs Date Time Temp Pulse Resp B/P (MAP) Pulse Ox O2 Delivery O2 Flow Rate FiO2 06/12/19 14:46 74 22 100 Venturi Mask 12.0 50 77 22 97 06/12/19 13:17 98.3 78 22 98/48 98 Nasal Cannula 3 06/12/19 13:10 77 20 98 06/12/19 13:07 88 23 92/41 98 Nasal Cannula 3 06/12/19 13:02 73 22 98 06/12/19 12:57 78 24 88/41 98 Simple Mask 6 06/12/19 12:52 78 23 95/47 98 Simple Mask 6 06/12/19 12:47 98.0 73 22 98/60 98 Simple Mask 6 06/12/19 12:00 Venturi Mask 06/12/19 12:00 90 06/12/19 11:57 89 20 99 Venturi Mask 12.0 50 86 20 95 06/12/19 09:04 94 Venturi Mask 12.0 50 06/12/19 08:03 101 06/12/19 08:00 98.6 86 20 96/59 (71) 93 06/12/19 08:00 Venturi Mask 06/12/19 07:05 102 20 94 Venturi Mask 12.0 50 103 20 92 06/12/19 04:59 112 20 95 12.0 50 06/12/19 04:00 123 06/12/19 04:00 98.3 121 20 120/44 (69) 96 06/12/19 04:00 Venturi Mask 06/12/19 03:16 Bi-Pap 06/12/19 03:16 84 14 96 Facial 50 97 16 97 Bi-Pap 50 06/12/19 01:28 84 22 98 Facial 50 06/12/19 00:00 89 06/12/19 00:00 98.5 96 20 93/51 (65) 96 06/12/19 00:00 Venturi Mask 06/11/19 23:20 Bi-Pap 06/11/19 23:16 91 23 96 Facial 50 93 22 97 Bi-Pap 50 06/11/19 22:00 50 06/11/19 21:28 102 24 94 50 06/11/19 20:00 Venturi Mask 06/11/19 20:00 98.3 101 20 109/86 (94) 95 06/11/19 20:00 104 06/11/19 19:34 96 Venturi Mask 12.0 50 06/11/19 19:30 110 20 96 12.0 50 112 22 93 06/11/19 16:00 Bi-pap 06/11/19 16:00 98.1 95 18 101/62 (75) 95 I&O Intake and Output 06/11/19 06/12/19 18:59 06:59 Intake Total 534 ml 322.8 ml Balance 534 ml 322.8 ml Intake Oral 474 ml Free Water 60 ml IV Total 322.8 ml # Voids 4 2 Dressing: other Wound: other Cardiovascular: RSR Respiratory: clear, decreased breath sounds Abdomen: soft, present bowel sounds, non-distended Extremities: no tenderness, no cyanosis Laboratory Tests Test 06/11/19 20:40 06/12/19 03:30 06/12/19 04:15 Vancomycin Level Trough 19.6 ug/mL (5.0-12.0) H White Blood Count 12.1 K/UL (4.8-10.8) H Red Blood Count 3.34 M/UL (4.70-6.10) L Hemoglobin 10.7 G/DL (14.2-18.0) L Hematocrit 31.9 % (42.0-52.0) L Mean Corpuscular Volume 96 FL (80-99) Mean Corpuscular Hemoglobin 32.2 PG (27.0-31.0) H Mean Corpuscular Hemoglobin Concent 33.7 G/DL (32.0-36.0) Red Cell Distribution Width 12.3 % (11.6-14.8) Platelet Count 443 K/UL (150-450) Mean Platelet Volume 6.1 FL (6.5-10.1) L Neutrophils (%) (Auto) 62.2 % (45.0-75.0) Lymphocytes (%) (Auto) 28.8 % (20.0-45.0) Monocytes (%) (Auto) 6.4 % (1.0-10.0) Eosinophils (%) (Auto) 1.3 % (0.0-3.0) Basophils (%) (Auto) 1.3 % (0.0-2.0) Sodium Level 136 MMOL/L (136-145) Potassium Level 3.9 MMOL/L (3.5-5.1) Chloride Level 100 MMOL/L (98-107) Carbon Dioxide Level 28 MMOL/L (21-32) Anion Gap 8 mmol/L (5-15) Blood Urea Nitrogen 10 mg/dL (7-18) Creatinine 1.0 MG/DL (0.55-1.30) Estimat Glomerular Filtration Rate > 60 mL/min (>60) Glucose Level 93 MG/DL (74-106) Calcium Level 8.7 MG/DL (8.5-10.1) Urine Legionella Antigen Pending Plan Problems: (1) Ulcer of right heel Assessment & Plan: This is a 54-year-old male with multiple medical comorbidities who is currently presented for fever and tachycardia. Patient identified to have abnormal decubitus pressure ulcer on right heel. On examination patient has a stage III full-thickness right heel decubitus ulcer periwound intact but mildly macerated. Surrounding erythema. No drainage. No underlying abscess. No bone palpable. No foul odor. Labs noted and identified. No signs of acute active inflammatory or infectious process from this. Patient does have a leukocytosis that significant. Will continue work-up for etiology Will recommend local wound care. Apply Thera honey followed by up to foam dressing daily. We will monitor. Thank you for this consultation we will follow with recommendations d/c planning (2) Fever Assessment & Plan: Low-grade fevers, tachycardia, leukocytosis, abnormal labs Head to toe skin integrity and wound eval completed as above UA noted chest x-ray noted aspiration pneumonia Continue antibiotics as per infectious disease PEG tube IV fluids. (3) Tachycardia (4) Severe sepsis Assessment & Plan: DAILY ESTIMATED NEEDS: Needs based on wound, wasting, pulmonary/ 46kg 30-35 kcals/kg 0649-7400 total kcals 1.3-1.8 g protein/kg 60-83 g total protein 25-30 mL/kg 9257-4526 total fluid mLs NUTRITION DIAGNOSIS: * Swallowing difficulty R/T dysphagia, respiratory status as evidenced by h/o Down's syndrome, on BIPAP qhs, now s/p PEG placement, NPO at this time. * Increased kcal/prot needs R/T wound healing and wasting as evidenced by pt admitted w/ stage 3 rt heel wound, w/ mild-moderate generalized wasting. CURRENT TF:NPO ENTERAL NUTRITION RECOMMENDATIONS: Jevity 1.2 @ 50ml/hr x 24 hrs to provide 1200ml, 1440kcal, 66g prot, 968ml free water * When medically appropriate, initiate Jevity 1.2 @ 20ml/hr x 6 hrs. * Advance 10ml q 4-6 hrs as tolerated to goal rate. * HOB over 30 degrees * Water flush of 100ml q 8 hrs ADDITIONAL RECOMMENDATIONS: * Calibrated bedscale wt - bedscale wt per RD= 101lbs vs EMR sf=855ccn * Monitor lytes, replete as needed * Wound healing: continue MVI, Vit C 500mg QD, and ZnSO4 : add Jeremy 1pkt BID * Monitor TF tolerance: s/p PEG placement on 06/12 Alexis Ruffin Jun 12, 2019 15:40
--- NOTE | 2019-06-12 17:00 | Consultation ---
DATE OF CONSULTATION: 06/12/2019 CONSULTING PHYSICIAN: Lewis Rubio M.D. CHIEF COMPLAINT: Dysphagia. HISTORY OF PRESENT ILLNESS: This is a 54-year-old male with past medical history of Down syndrome, multiple episodes of aspiration pneumonias. Currently admitted to the hospital with pneumonia, respiratory distress. GI consult requested for possible PEG placement. The patient has failed swallow evaluation. He has an NG-tube in place that he pulls out. PAST MEDICAL HISTORY: 1. History of Down syndrome. 2. Multiple aspiration pneumonias. 3. CHF. 4. Aortic stenosis. 5. Hypertension. 6. Hyperlipidemia. 7. Hypothyroidism. 8. GERD. ALLERGIES: To nonsteroidal and ketamine. MEDICATIONS: Please see medication reconciliation list. SOCIAL HISTORY: The patient has no recent history of tobacco, alcohol, or drug abuse. FAMILY HISTORY: Noncontributory. REVIEW OF SYSTEMS: Limited. PHYSICAL EXAMINATION: VITAL SIGNS: Temperature 98.6, pulse is 101, respirations 20, blood pressure 96/59. HEENT: Normocephalic and atraumatic. Sclerae anicteric. NECK: Supple. No evidence of obvious lymphadenopathy. CARDIOVASCULAR: Tachy. Regular rate. There is a murmur in the left sternal border. LUNGS: Decreased breath sounds bilaterally and diffusely. ABDOMEN: Soft, nontender. No rebound. No guarding. No peritoneal sign. EXTREMITIES: No cyanosis. No clubbing. No edema. LABORATORY DATA: White count is 12, hemoglobin 10, hematocrit 31, platelet count is 443. Sodium 136, potassium 3.9, BUN is 10, creatinine is 1.0. ASSESSMENT AND PLAN: This is a 54-year-old male with Down syndrome, multiple aspiration pneumonias, currently on non-rebreather mask at about 8 liters with saturating in 80s. I had a discussion with Anesthesia, family, and primary care team. It seems that the patient is DNR and there is a high risk of desaturation if we give him sedation for the PEG. He might code, so our decision was to keep him over the weekend, optimize his pulmonary situation, and if he is stable on Saturday, we will try to do PEG on Saturday, but we also need to talk to the family regarding the code status that needs to be reversed during the procedure. Otherwise, we will not be able to do it. So meanwhile, we are going to keep him NPO, hydrate him with IV fluids. Antibiotics for pneumonia per ID and we will plan to do PEG on Saturday if the patient is respiratory colon more stable. I want to thank Dr. Gallagher for this kind referral. Lewis Rubio M.D. DR: LALI JOB#: [id number] CC: Prashant Gallagher M.D.; Fax#: [phone]
--- NOTE | 2019-06-12 19:47 | Pulmonology Progress Note ---
Assessment/Plan Assessment/Plan Pulmonary Progress Note Assessment/Plan Problems: (1) Pneumonia (2) Acute and chronic respiratory failure with hypoxia (3) Severe sepsis (4) Fever (5) Down's syndrome (6) Tachycardia (7) Hypothyroid (8) HLD (hyperlipidemia) (9) HTN (hypertension) (10) GERD (gastroesophageal reflux disease) (11) Iron deficiency anemia (12) CHF (congestive heart failure) Assessment/Plan Problem List: 1. HCAP/BLL PNA, likely aspiration 2. Hypercapnic hypoxemic respiratory failure. 3. Down syndrome. 4. Small/mod b effusions 5. HTN & Hyperlipidemia 6. Gastroesophageal reflux disease. 7. Decubitus ulcers. Plan: -NGTF's only when stable off BiPAP -BiPAP 12/5 qhs and prn -Titrate NRBFM -cont abx per ID -monitor effusions -TANK OPERATOR recs, VSS, GT not within GOC -DNAR/DNI -Consider palliative care eval -Dispo planning to [facility] or [facility]ACH Case d/w RN Subjective Allergies: Coded Allergies: KETAMINE (Verified Allergy, Unknown, 05/29/19) NSAIDS (NON-STEROIDAL ANTI-INFLAMMA (Verified Allergy, Unknown, 05/29/19) Subjective AFVSS CXR unchanged Objective Vital Signs Noted General Appearance: no acute distress, cachetic HEENT: normocephalic, atraumatic, other - on BiPAP Respiratory/Chest: rhonchi Cardiovascular: normal peripheral pulses, normal rate, regular rhythm Abdomen: normal bowel sounds, soft, non tender, no organomegaly, non distended , no mass Extremities: no cyanosis, no clubbing, no edema Laboratory Tests Noted Subjective ROS Limited/Unobtainable: No Allergies: Coded Allergies: KETAMINE (Verified Allergy, Unknown, 05/29/19) NSAIDS (NON-STEROIDAL ANTI-INFLAMMA (Verified Allergy, Unknown, 05/29/19) Objective Last 24 Hour Vital Signs Date Time Temp Pulse Resp B/P (MAP) Pulse Ox O2 Delivery O2 Flow Rate FiO2 06/12/19 19:35 96 Nasal Cannula 4.0 36 06/12/19 19:35 96 20 98 Nasal Cannula 4.0 36 90 20 98 06/12/19 16:14 Nasal Cannula 5.0 06/12/19 16:00 98.6 20 117/75 (89) 98 06/12/19 16:00 93 06/12/19 14:46 74 22 100 Venturi Mask 12.0 50 77 22 97 06/12/19 13:17 98.3 78 22 98/48 98 Nasal Cannula 3 06/12/19 13:10 77 20 98 06/12/19 13:07 88 23 92/41 98 Nasal Cannula 3 06/12/19 13:02 73 22 98 06/12/19 12:57 78 24 88/41 98 Simple Mask 6 06/12/19 12:52 78 23 95/47 98 Simple Mask 6 06/12/19 12:47 98.0 73 22 98/60 98 Simple Mask 6 06/12/19 12:00 Venturi Mask 06/12/19 12:00 90 06/12/19 11:57 89 20 99 Venturi Mask 12.0 50 86 20 95 06/12/19 09:04 94 Venturi Mask 12.0 50 06/12/19 08:03 101 06/12/19 08:00 98.6 86 20 96/59 (71) 93 06/12/19 08:00 Venturi Mask 06/12/19 07:05 102 20 94 Venturi Mask 12.0 50 103 20 92 06/12/19 04:59 112 20 95 12.0 50 06/12/19 04:00 123 06/12/19 04:00 98.3 121 20 120/44 (69) 96 06/12/19 04:00 Venturi Mask 06/12/19 03:16 Bi-Pap 06/12/19 03:16 84 14 96 Facial 50 97 16 97 Bi-Pap 50 06/12/19 01:28 84 22 98 Facial 50 06/12/19 00:00 89 06/12/19 00:00 98.5 96 20 93/51 (65) 96 06/12/19 00:00 Venturi Mask 06/11/19 23:20 Bi-Pap 06/11/19 23:16 91 23 96 Facial 50 93 22 97 Bi-Pap 50 06/11/19 22:00 50 06/11/19 21:28 102 24 94 50 06/11/19 20:00 Venturi Mask 06/11/19 20:00 98.3 101 20 109/86 (94) 95 06/11/19 20:00 104 Intake and Output 06/11/19 06/12/19 18:59 06:59 Intake Total 534 ml 322.8 ml Balance 534 ml 322.8 ml Intake Oral 474 ml Free Water 60 ml IV Total 322.8 ml # Voids 4 2 Microbiology Date/Time Source Procedure Growth Status 06/11/19 09:15 Sputum Induced Gram Stain - Final Resulted 06/11/19 09:15 Sputum Induced Sputum Culture Pending Resulted 06/10/19 06:24 Indwelling Cath Urine Culture - Preliminary YEAST Resulted Laboratory Tests 06/11/19 20:40: Vancomycin Level Trough 19.6H 06/12/19 03:30: White Blood Count 12.1H, Red Blood Count 3.34L, Hemoglobin 10.7L, Hematocrit 31.9L, Mean Corpuscular Volume 96, Mean Corpuscular Hemoglobin 32.2H, Mean Corpuscular Hemoglobin Concent 33.7, Red Cell Distribution Width 12.3, Platelet Count 443, Mean Platelet Volume 6.1L, Neutrophils (%) (Auto) 62.2, Lymphocytes ( %) (Auto) 28.8, Monocytes (%) (Auto) 6.4, Eosinophils (%) (Auto) 1.3, Basophils (%) (Auto) 1.3, Sodium Level 136, Potassium Level 3.9, Chloride Level 100, Carbon Dioxide Level 28, Anion Gap 8, Blood Urea Nitrogen 10, Creatinine 1.0, Estimat Glomerular Filtration Rate > 60, Glucose Level 93, Calcium Level 8.7 06/12/19 04:15: Urine Legionella Antigen [Pending] Current Medications Medications (Trade) Dose Ordered Sig/Kendra Route PRN Reason Start Time Stop Time Status Last Admin Dose Admin Acetaminophen (Tylenol) 650 mg Q6H PRN RECTAL Mild Pain (Pain Scale 1-3) 05/31/19 01:15 06/30/19 01:14 06/09/19 16:19 Acetylcysteine (Mucomyst) 100 mg Q4HRT HHN 05/31/19 17:00 06/30/19 16:59 06/12/19 19:35 Amikacin Protocol (Amikacin pharmacy to dose) 1 ea DAILY PRN MISC Per rx protocol 06/09/19 17:45 07/09/19 17:44 Amikacin Sulfate 700 mg/Sodium Chloride 112.8 ml @ 112.8 mls/ hr Q24H IV 06/09/19 20:00 06/16/19 19:59 06/11/19 20:58 Ascorbic Acid (Vitamin C) 500 mg DAILY NG 06/06/19 09:00 07/02/19 08:59 06/11/19 08:47 Barium Sulfate (Varibar Honey) 250 ml NOW PRN RAD 06/11/19 13:45 06/14/19 13:41 Barium Sulfate (Varibar [place]) 240 ml NOW PRN RAD 06/11/19 13:45 06/14/19 13:41 Barium Sulfate (Varibar Pudding) 230 ml NOW PRN RAD 06/11/19 13:45 06/14/19 13:41 Bisacodyl (Dulcolax) 10 mg DAILYPRN PRN RECTAL constipation 05/31/19 10:45 06/29/19 10:44 Cyanocobalamin (Vitamin B-12 Tab) 100 mcg DAILY NG 06/05/19 09:00 06/30/19 08:59 06/11/19 08:47 Docusate Sodium (Colace) 100 mg EVERY 12 HOURS NG 06/05/19 21:00 07/05/19 20:59 06/11/19 08:46 Famotidine (Pepcid I.v.) 20 mg Q12HR IVP 05/31/19 09:00 06/30/19 08:59 06/12/19 09:00 Ferrous Sulfate (Feosol) 325 mg DAILY NG 06/05/19 09:00 07/05/19 08:59 06/11/19 08:46 Fluconazole/ Sodium Chloride 200 ml @ 200 mls/hr Q24H IV 06/09/19 18:00 06/16/19 17:59 06/12/19 18:07 Heparin Sodium (Porcine) (Heparin 5000 units/ml) 5,000 units EVERY 12 HOURS SUBQ 05/31/19 09:00 06/29/19 08:59 06/11/19 08:49 Levothyroxine Sodium (Synthroid) 25 mcg DAILY IV 06/04/19 10:30 07/04/19 10:29 06/12/19 09:04 Lorazepam (Ativan 2mg/ml 1ml) 1 mg Q6H PRN IV Agitation 06/11/19 20:30 06/18/19 20:29 Meropenem 1 gm/ Sodium Chloride 100 ml @ 200 mls/hr Q8HR IVPB 06/09/19 22:00 06/14/19 21:59 06/12/19 15:29 Midodrine (Pro-Amatine) 5 mg TIDPRN PRN NG SBP<90 06/05/19 15:00 06/29/19 12:59 06/07/19 03:36 Morphine Sulfate (Morphine Sulfate) 2 mg Q4H PRN IVP For Pain 06/11/19 20:34 06/18/19 20:33 06/11/19 21:00 Multivitamins (Multivitamins) 1 tab DAILY NG 06/05/19 09:00 07/02/19 08:59 06/11/19 08:47 Vancomycin HCl (Vanco rx to dose) 1 ea DAILY PRN MISC Per rx protocol 06/09/19 17:45 07/08/19 07:59 Vancomycin HCl 500 mg/Dextrose 110 ml @ 110 mls/hr Q12HR@1000,2200 IVPB 06/10/19 10:00 06/15/19 09:59 06/12/19 09:12 Zinc Sulfate (Zinc Sulfate) 220 mg DAILY NG 06/05/19 09:00 06/15/19 08:59 06/11/19 08:47 Dwayne Barrientos MD Jun 12, 2019 19:47
[2019-06-12] MEDS: Amikacin 700 MG in NS 110 ML IV SCH (20:14)
[2019-06-13] VITALS: BP 100/50
[2019-06-13 04:00] VITALS: BP 99/48
[2019-06-13 05:40] LABS: BASOPHILS % (AUTO) 1.2 % (0.0-2.0); EOSINOPHILS % (AUTO) 0.8 % (0.0-3.0); HEMATOCRIT 36.1 % (42.0-52.0); HEMOGLOBIN 12.3 G/DL (14.2-18.0); LYMPHOCYTES % (AUTO) 24.4 % (20.0-45.0); MEAN CORPUSCULAR VOLUME 96 FL (80-99); MONOCYTES % (AUTO) 4.1 % (1.0-10.0); NEUTROPHILS % (AUTO) 69.6 % (45.0-75.0); PLATELET COUNT 406 K/UL (150-450); RED BLOOD COUNT 3.76 M/UL (4.70-6.10); RED CELL DISTRIBUTION WIDTH 12.6 % (11.6-14.8); WHITE BLOOD COUNT 8.8 K/UL (4.8-10.8)
[2019-06-13 05:56] LABS: ANION GAP 11 mmol/L (5-15); BLOOD UREA NITROGEN 8 mg/dL (7-18); CALCIUM 9.3 MG/DL (8.5-10.1); CARBON DIOXIDE 25 MMOL/L (21-32); CHLORIDE 100 MMOL/L (98-107); PHOSPHORUS 3.9 MG/DL (2.5-4.9); POTASSIUM 4.5 MMOL/L (3.5-5.1); SODIUM 136 MMOL/L (136-145)
[2019-06-13 08:00] VITALS: BP 138/63
--- NOTE | 2019-06-13 08:36 | General Progress Note ---
Assessment/Plan Problem List: (1) CHF (congestive heart failure) ICD Codes: I50.9 - Heart failure, unspecified SNOMED: 08524325 (2) Iron deficiency anemia ICD Codes: D50.9 - Iron deficiency anemia, unspecified SNOMED: 08776950 (3) Severe sepsis ICD Codes: A41.9 - Sepsis, unspecified organism; R65.20 - Severe sepsis without septic shock SNOMED: 51252439 (4) Acute on chronic respiratory failure with hypoxia and hypercapnia ICD Codes: J96.21 - Acute and chronic respiratory failure with hypoxia; J96.22 - Acute and chronic respiratory failure with hypercapnia SNOMED: 51170718546414 (5) Acute and chronic respiratory failure with hypoxia ICD Codes: J96.21 - Acute and chronic respiratory failure with hypoxia SNOMED: 85496667, 655258311 (6) Pneumonia ICD Codes: J18.9 - Pneumonia, unspecified organism SNOMED: 142835287 (7) Hypothyroid ICD Codes: E03.9 - Hypothyroidism, unspecified SNOMED: 87079360 (8) HTN (hypertension) ICD Codes: I10 - Essential (primary) hypertension SNOMED: 53071543 (9) GERD (gastroesophageal reflux disease) ICD Codes: K21.9 - Gastro-esophageal reflux disease without esophagitis SNOMED: 801691831 (10) Aortic stenosis ICD Codes: I35.0 - Nonrheumatic aortic (valve) stenosis SNOMED: 21777130 (11) Fever ICD Codes: R50.9 - Fever, unspecified SNOMED: 264692442 (12) Down's syndrome ICD Codes: Q90.9 - Down syndrome, unspecified SNOMED: 14655324, 525650931 (13) Ulcer of right heel ICD Codes: L97.419 - Non-pressure chronic ulcer of right heel and midfoot with unspecified severity SNOMED: 140539255 Status: progressing, not improved, unchanged, deteriorating Assessment/Plan: Dwayne Gibson is a 54 yo man with PMH of Down's syndrome (nonverbal and bedbound at baseline), CHF (unknown EF), HTN, HLD, iron deficiency anemia, hypothyroid, GERD, with JANETTE 1 cm2, and bilateral foot pressure ulcers who presented from [facility] with fever, cough, and hypoxia, found with Tm 100.5, leukocytosis with left shift, and CXR suggestive of possible bilateral infiltrate, admitted for acute on chronic hypoxemic respiratory failure and sepsis 2/2 HCAP. #Acute on chronic hypoxemic/hypercapnic respiratory failure (baseline NC 2-4L) 2 /2 HCAP and right pleural effusion- minimal improvement. Improving. #Sepsis 2/2 HCAP -septic 06/09/19 (Heart rate, Temp 101.7) -resolved #Bilateral pleural effusions - stable > Tm 100.5 on admission, WBC 20.5 with bands, RR to 30s, tachycardic to 130s > Lactate 1.2 > ABG on admission 7.4/39//24 > BCX negative to date > F/U sputum CX > ESR 119, CRp 29, osteo of ulcer? > S/p IVF NS 30cc/kg sepsis bolus and gentle continuous D5NS IVF. HL IVF 06/05 given increased PVC on CXR and worsening respiratory failure. > Venous duplex negative for DVT > CXR 06/01/19 with worsening right sided pleural effusion, 06/06 CXR with mild improvement noted and reviewed, 06/10, unchanged, 06/11 unchanged > CT chest performed showing bilateral pneumonia and moderate pleural effusions >sputum culture: normal shoshana, though after antibiotics initiated > UA not overtly suggestive of UTI > Ct chest noncontrast showing bilateral pleural effusions -Discontinue zosyn 4.5gm IV q6hrs (05/30- 06/09) - stop vancomycin per pharmacy (05/29- 06/13) - stop amikacin per infectious disease (06/09 - 06/13 ) -Continue meropenem -f/u cxr - Continue diflucan per ID (06/09 - ) - follow up repeat blood and sputum cultures 06/09 - Wean oxygen to keep O2 sat >/=92%. Continues intermittent BiPAP and nonrebreather - Pulm/crit care consulted, appreciate recs. Nebs scheduled q4hrs with suction q4hrs. - OK for transfer to subacute when stable - Infectious disease consulted Dr. Serrano. Appreciate recommendations - Appreciate general surgery recommendations: Dr. Ruffin - Tylenol 650mg PO q6hrs PRN pain or fever - Duonebs - follow up legionella, urine (sent 06/11/19) #Dysphasia #Goals of care > Patient removed NG tube overnight (06/11/19) Supportive ST care and trials as he used to be able to eat 100 % with assistance at SNF -Appreciate ST recommendations - video swallow on 06/11/19 - failed -Previous extensive discussion with medical decision-maker Mr. Sheriff, regarding reversal of CODE STATUS to full code for procedure. Mr. Sheriff was okay with a temporary reversal. Also discussed the option of hospice given that the patient has had recurrent hospitalizations for the same problem ( aspiration pneumonia) over the past couple years. Mr. Sheriff would still like to proceed with the PEG. PEG placed 06/12 -Will reverse CODE STATUS to DNR DNI after procedure -continue PEG feeds #skin breakdown around nares bilaterally from patient movement of HFNC - improving -Discontinue high flow nasal cannula -Can cautiously restart nasal cannula. No signs of ulcer. Patient will not keep on the facemask so need to try a nasal cannula - wound care consult #hx HTN but now requiring PRN midodrine at SNF for intermittent hypotension #hx HFpEF (LVEF 55%), with most recent TTE on 05/29/19 showing EF 40-45% #hx #hx HLD - EKG with sinus tachycardia, TWI in lateral leads (no prior in chart for comparison). Troponin negative on admission. Low suspicion for acute ACS - Continue home midodrine 5mg PO TID PRN SBP<90 - Can resume home statin once able to tolerate PO - holding CLARICE-I, Beta Sadiq given intermittent hypotension - Appreciate cardiology recommendations: Dr. Owen - consider spot lasix dose if fluid overload is noted. ( done 06/05 ). Pro-BNP downtrending. #Metabolic Encephalopathy in setting of sepsis and underlying Down's syndrome - appears to be back to baseline - Baseline nonverbal and bedbound - Limit sedating medications as able #Mild transaminitis - resolved #Hepatitis B surface antigen positive. Appears to have acute hepatitis B infection > Ultrasound unremarkable > Hepatitis IgM core ab positive, surface Ab negative, BE ab positive - AST 38 and ALT 100 on admission, -Check further hepatitis B serologies, f/u hepatitis B DNA -Will need outpatient hepatotology follow up #Chronic hyponatremia - improving - Na 134 on admission, now 136 - Per records from SNF, Na was 132 on 05/05/19 - Monitor BMP #hx Hypothyroid - TSH 3.7 -Levothyroxine 25 mg IV daily. Will switch to p.o. once patient able to tolerate #hx GERD - Pepcid for home omeprazole #hx iron deficiency anemia - H/H stable - Continue home ferrous sulfate 325mg PO daily #Right heel wound - Present on admission - Appreciate wound care/surgery consult - Wound care as per recs # Thrombocytosis with platelets of 541,000 most likely reactive. - Monitor #hypokalemia - replete as needed FEN IVF: none DVT ppx: Heparin subq GI ppx: Pepcid Code Status: DNR/DNI with limited interventions, no PEG Diet: Tube feedings, Bolus since 06/08/19 Dispo: [facility] for intermittent BiPAP after PEG Reason for continued hospitalization: Acute hypoxic respiratory failure, dysphagia 36 minutes spent on this encounter. Discussed with RN. > 50% spent on counseling and care coordination. Additional 31 minutes spent on chart review Time of note may not reflect time patient was seen. Subjective Date patient seen: Jun 13, 2019 ROS Limited/Unobtainable: Yes Allergies: Coded Allergies: KETAMINE (Verified Allergy, Unknown, 05/29/19) NSAIDS (NON-STEROIDAL ANTI-INFLAMMA (Verified Allergy, Unknown, 05/29/19) Subjective seen. non verbal s/p PEG 06/12, tolerating feeds clinically improved. off bipap Objective Last 24 Hour Vital Signs Date Time Temp Pulse Resp B/P (MAP) Pulse Ox O2 Delivery O2 Flow Rate FiO2 06/13/19 07:27 96 Nasal Cannula 4.0 36 06/13/19 04:00 Bi-pap 06/13/19 04:00 98.2 91 27 99/48 (65) 97 06/13/19 04:00 91 06/13/19 03:12 82 22 97 Bi-Pap 50 82 22 96 06/13/19 03:10 82 22 95 Facial 50 06/13/19 01:24 85 25 96 Facial 50 06/13/19 00:00 Bi-pap 06/13/19 00:00 97.4 96 22 100/50 (67) 97 06/13/19 00:00 94 06/12/19 22:59 98 20 98 Nasal Cannula 4.0 36 101 20 96 06/12/19 22:59 90 16 97 Facial 50 06/12/19 20:00 Nasal Cannula 5.0 06/12/19 20:00 90 06/12/19 20:00 97.8 93 21 104/53 (70) 99 06/12/19 20:00 5.0 06/12/19 19:35 96 Nasal Cannula 4.0 36 06/12/19 19:35 96 20 98 Nasal Cannula 4.0 36 90 20 98 06/12/19 16:14 Nasal Cannula 5.0 06/12/19 16:00 98.6 20 117/75 (89) 98 06/12/19 16:00 93 06/12/19 14:46 74 22 100 Venturi Mask 12.0 50 77 22 97 06/12/19 13:17 98.3 78 22 98/48 98 Nasal Cannula 3 06/12/19 13:10 77 20 98 06/12/19 13:07 88 23 92/41 98 Nasal Cannula 3 06/12/19 13:02 73 22 98 06/12/19 12:57 78 24 88/41 98 Simple Mask 6 06/12/19 12:52 78 23 95/47 98 Simple Mask 6 06/12/19 12:47 98.0 73 22 98/60 98 Simple Mask 6 06/12/19 12:00 Venturi Mask 06/12/19 12:00 90 06/12/19 11:57 89 20 99 Venturi Mask 12.0 50 86 20 95 06/12/19 09:04 94 Venturi Mask 12.0 50 Intake and Output 06/12/19 06/13/19 19:00 07:00 Intake Total 50 ml Output Total 1100 ml 400 ml Balance -1050 ml -400 ml IV Total 50 ml Output Urine Total 1100 ml 400 ml Laboratory Tests 06/13/19 03:56: White Blood Count 8.8, Red Blood Count 3.76L, Hemoglobin 12.3L, Hematocrit 36.1L , Mean Corpuscular Volume 96, Mean Corpuscular Hemoglobin 32.8H, Mean Corpuscular Hemoglobin Concent 34.1, Red Cell Distribution Width 12.6, Platelet Count 406, Mean Platelet Volume 5.7L, Neutrophils (%) (Auto) 69.6, Lymphocytes ( %) (Auto) 24.4, Monocytes (%) (Auto) 4.1, Eosinophils (%) (Auto) 0.8, Basophils (%) (Auto) 1.2, Sodium Level 136, Potassium Level 4.5, Chloride Level 100, Carbon Dioxide Level 25, Anion Gap 11, Blood Urea Nitrogen 8, Creatinine 1.0, Estimat Glomerular Filtration Rate > 60, Glucose Level 72L, Calcium Level 9.3, Phosphorus Level 3.9, Magnesium Level 2.1 Height (Feet): 5 Height (Inches): 1.00 Weight (Pounds): 124 Objective General Appearance: WD/WN, no apparent distress, alert EENT: PERRL/EOMI, other - Nares with slight irritation but much improved. No bleeding noticed. Neck: non-tender, normal alignment, supple Cardiovascular: normal peripheral pulses, normal rate, regular rhythm, no JVD Respiratory/Chest: chest wall non-tender, other - Coarse breath sounds bilaterally. Abdomen: normal bowel sounds, non tender, soft, no organomegaly, +peg, site c/d /i Extremities: other - No lower extremity edema bilaterally. 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 Jun 13, 2019 08:36
[2019-06-13] MEDS: Ferrous Sulfate 300 MG/5 ML UDC NG SCH (08:42)
[2019-06-13] MEDS: Docusate 100mg/10ml Liq NG SCH ×2 (08:42→20:56)
[2019-06-13] MEDS: Vitamin B-12 100mcg tab NG SCH (08:43)
[2019-06-13] MEDS: Ascorbic Acid 500mg tab NG SCH (08:43)
[2019-06-13] MEDS: Zinc Sulfate 220mg cap NG SCH (08:43)
[2019-06-13] MEDS: Heparin 5000 units/ml inj SUBQ SCH ×2 (08:45→20:58)
--- NOTE | 2019-06-13 09:27 | General Progress Note ---
Assessment/Plan Problem List: (1) Acute and chronic respiratory failure with hypoxia ICD Codes: J96.21 - Acute and chronic respiratory failure with hypoxia SNOMED: 17902135, 535723384 (2) Pneumonia ICD Codes: J18.9 - Pneumonia, unspecified organism SNOMED: 679857703 (3) HTN (hypertension) ICD Codes: I10 - Essential (primary) hypertension SNOMED: 49546146 (4) GERD (gastroesophageal reflux disease) ICD Codes: K21.9 - Gastro-esophageal reflux disease without esophagitis SNOMED: 134998910 (5) Iron deficiency anemia ICD Codes: D50.9 - Iron deficiency anemia, unspecified SNOMED: 96424166 (6) Down's syndrome ICD Codes: Q90.9 - Down syndrome, unspecified SNOMED: 53579073, 234886080 (7) Aortic stenosis ICD Codes: I35.0 - Nonrheumatic aortic (valve) stenosis SNOMED: 18539552 Status: not improved, unchanged, deteriorating Assessment/Plan: s/p PEG placement will start GTF fu labs abx pulm care Subjective ROS Limited/Unobtainable: No Allergies: Coded Allergies: KETAMINE (Verified Allergy, Unknown, 05/29/19) NSAIDS (NON-STEROIDAL ANTI-INFLAMMA (Verified Allergy, Unknown, 05/29/19) Objective Last 24 Hour Vital Signs Date Time Temp Pulse Resp B/P (MAP) Pulse Ox O2 Delivery O2 Flow Rate FiO2 06/13/19 07:27 96 Nasal Cannula 4.0 36 06/13/19 04:00 Bi-pap 06/13/19 04:00 98.2 91 27 99/48 (65) 97 06/13/19 04:00 91 06/13/19 03:12 82 22 97 Bi-Pap 50 82 22 96 06/13/19 03:10 82 22 95 Facial 50 06/13/19 01:24 85 25 96 Facial 50 06/13/19 00:00 Bi-pap 06/13/19 00:00 97.4 96 22 100/50 (67) 97 06/13/19 00:00 94 06/12/19 22:59 98 20 98 Nasal Cannula 4.0 36 101 20 96 06/12/19 22:59 90 16 97 Facial 50 06/12/19 20:00 Nasal Cannula 5.0 06/12/19 20:00 90 06/12/19 20:00 97.8 93 21 104/53 (70) 99 06/12/19 20:00 5.0 06/12/19 19:35 96 Nasal Cannula 4.0 36 06/12/19 19:35 96 20 98 Nasal Cannula 4.0 36 90 20 98 06/12/19 16:14 Nasal Cannula 5.0 06/12/19 16:00 98.6 20 117/75 (89) 98 06/12/19 16:00 93 06/12/19 14:46 74 22 100 Venturi Mask 12.0 50 77 22 97 06/12/19 13:17 98.3 78 22 98/48 98 Nasal Cannula 3 06/12/19 13:10 77 20 98 06/12/19 13:07 88 23 92/41 98 Nasal Cannula 3 06/12/19 13:02 73 22 98 06/12/19 12:57 78 24 88/41 98 Simple Mask 6 06/12/19 12:52 78 23 95/47 98 Simple Mask 6 06/12/19 12:47 98.0 73 22 98/60 98 Simple Mask 6 06/12/19 12:00 Venturi Mask 06/12/19 12:00 90 06/12/19 11:57 89 20 99 Venturi Mask 12.0 50 86 20 95 Intake and Output 06/12/19 06/13/19 19:00 07:00 Intake Total 50 ml Output Total 1100 ml 400 ml Balance -1050 ml -400 ml IV Total 50 ml Output Urine Total 1100 ml 400 ml Laboratory Tests 06/13/19 03:56: White Blood Count 8.8, Red Blood Count 3.76L, Hemoglobin 12.3L, Hematocrit 36.1L , Mean Corpuscular Volume 96, Mean Corpuscular Hemoglobin 32.8H, Mean Corpuscular Hemoglobin Concent 34.1, Red Cell Distribution Width 12.6, Platelet Count 406, Mean Platelet Volume 5.7L, Neutrophils (%) (Auto) 69.6, Lymphocytes ( %) (Auto) 24.4, Monocytes (%) (Auto) 4.1, Eosinophils (%) (Auto) 0.8, Basophils (%) (Auto) 1.2, Sodium Level 136, Potassium Level 4.5, Chloride Level 100, Carbon Dioxide Level 25, Anion Gap 11, Blood Urea Nitrogen 8, Creatinine 1.0, Estimat Glomerular Filtration Rate > 60, Glucose Level 72L, Calcium Level 9.3, Phosphorus Level 3.9, Magnesium Level 2.1 Height (Feet): 5 Height (Inches): 1.00 Weight (Pounds): 124 General Appearance: no apparent distress EENT: normal ENT inspection Neck: supple Cardiovascular: normal rate Respiratory/Chest: decreased breath sounds Abdomen: normal bowel sounds, non tender, soft Extremities: non-tender Lewis Rubio MD Jun 13, 2019 09:27
--- NOTE | 2019-06-13 09:36 | Diagnostic Imaging Report ---
EXAM: XR Chest, 1 View CLINICAL HISTORY: Shortness of breath TECHNIQUE: Frontal view of the chest. COMPARISON: CXR dated 06 11 19. FINDINGS: Lungs: Persistent patchy opacity in the right lower lung as well as the retrocardiac region, concerning for pneumonia. No significant change in the increased interstitial markings concerning for pulmonary vascular congestion versus interstitial pneumonitis. Pleural space: Possible small bilateral effusions. Heart: Unremarkable. No cardiomegaly. Mediastinum: Unremarkable. Bones joints: Unremarkable. Tubes, lines and devices: Telemetry leads overlie the thorax. IMPRESSION: 1. Persistent patchy opacity in the right lower lung as well as the retrocardiac region, concerning for pneumonia. 2. No significant change in the increased interstitial markings concerning for pulmonary vascular congestion versus interstitial pneumonitis. 3. Possible small bilateral effusions, stable.
[2019-06-13] MEDS: Vancomycin 500mg/D5W 110ml IVPB SCH ×4 (10:25→23:49)
[2019-06-13 12:00] VITALS: BP 106/56
--- NOTE | 2019-06-13 13:30 | Pulmonology Progress Note ---
Assessment/Plan Assessment/Plan Pulmonary Progress Note Assessment/Plan Problems: (1) Pneumonia (2) Acute and chronic respiratory failure with hypoxia (3) Severe sepsis (4) Fever (5) Down's syndrome (6) Tachycardia (7) Hypothyroid (8) HLD (hyperlipidemia) (9) HTN (hypertension) (10) GERD (gastroesophageal reflux disease) (11) Iron deficiency anemia (12) CHF (congestive heart failure) Assessment/Plan Problem List: 1. HCAP/BLL PNA, likely aspiration 2. Hypercapnic hypoxemic respiratory failure, prn BiPAP 3. Down syndrome. 4. Small/mod b effusions 5. HTN & Hyperlipidemia 6. Gastroesophageal reflux disease. 7. Decubitus ulcers. Plan: -NGTF's only when stable off BiPAP -BiPAP 12/5 qhs and prn -Titrate NRBFM -cont abx per ID -monitor effusions -COMMUNICATIONS LEAD recs, VSS, GT not within GOC -DNAR/DNI -Consider palliative care eval -Dispo planning to [facility]UTE or LTACH Case d/w RN Subjective Allergies: Coded Allergies: KETAMINE (Verified Allergy, Unknown, 05/29/19) NSAIDS (NON-STEROIDAL ANTI-INFLAMMA (Verified Allergy, Unknown, 05/29/19) Subjective AFVSS CXR unchanged Objective Vital Signs Noted General Appearance: no acute distress, cachetic HEENT: normocephalic, atraumatic, other - on BiPAP Respiratory/Chest: rhonchi Cardiovascular: normal peripheral pulses, normal rate, regular rhythm Abdomen: normal bowel sounds, soft, non tender, no organomegaly, non distended , no mass Extremities: no cyanosis, no clubbing, no edema Laboratory Tests Noted CXR: 1. Persistent patchy opacity in the right lower lung as well as the retrocardiac region, concerning for pneumonia. 2. No significant change in the increased interstitial markings concerning for pulmonary vascular congestion versus interstitial pneumonitis. 3. Possible small bilateral effusions, stable. Subjective ROS Limited/Unobtainable: No Allergies: Coded Allergies: KETAMINE (Verified Allergy, Unknown, 05/29/19) NSAIDS (NON-STEROIDAL ANTI-INFLAMMA (Verified Allergy, Unknown, 05/29/19) Objective Last 24 Hour Vital Signs Date Time Temp Pulse Resp B/P (MAP) Pulse Ox O2 Delivery O2 Flow Rate FiO2 06/13/19 09:37 100 06/13/19 08:00 99.1 106 22 138/63 (88) 92 06/13/19 08:00 Nasal Cannula 5.0 06/13/19 07:27 96 Nasal Cannula 4.0 36 06/13/19 04:00 Bi-pap 06/13/19 04:00 98.2 91 27 99/48 (65) 97 06/13/19 04:00 91 06/13/19 03:12 82 22 97 Bi-Pap 50 82 22 96 06/13/19 03:10 82 22 95 Facial 50 06/13/19 01:24 85 25 96 Facial 50 06/13/19 00:00 Bi-pap 06/13/19 00:00 97.4 96 22 100/50 (67) 97 06/13/19 00:00 94 06/12/19 22:59 98 20 98 Nasal Cannula 4.0 36 101 20 96 06/12/19 22:59 90 16 97 Facial 50 06/12/19 20:00 Nasal Cannula 5.0 06/12/19 20:00 90 06/12/19 20:00 97.8 93 21 104/53 (70) 99 06/12/19 20:00 5.0 06/12/19 19:35 96 Nasal Cannula 4.0 36 06/12/19 19:35 96 20 98 Nasal Cannula 4.0 36 90 20 98 06/12/19 16:14 Nasal Cannula 5.0 06/12/19 16:00 98.6 20 117/75 (89) 98 06/12/19 16:00 93 06/12/19 14:46 74 22 100 Venturi Mask 12.0 50 77 22 97 Intake and Output 06/12/19 06/13/19 19:00 07:00 Intake Total 50 ml Output Total 1100 ml 400 ml Balance -1050 ml -400 ml IV Total 50 ml Output Urine Total 1100 ml 400 ml Microbiology Date/Time Source Procedure Growth Status 06/11/19 09:15 Sputum Induced Gram Stain - Final Resulted 06/11/19 09:15 Sputum Culture - Preliminary Usual Respiratory Patricia YEAST Resulted Laboratory Tests 06/13/19 03:56: White Blood Count 8.8, Red Blood Count 3.76L, Hemoglobin 12.3L, Hematocrit 36.1L , Mean Corpuscular Volume 96, Mean Corpuscular Hemoglobin 32.8H, Mean Corpuscular Hemoglobin Concent 34.1, Red Cell Distribution Width 12.6, Platelet Count 406, Mean Platelet Volume 5.7L, Neutrophils (%) (Auto) 69.6, Lymphocytes ( %) (Auto) 24.4, Monocytes (%) (Auto) 4.1, Eosinophils (%) (Auto) 0.8, Basophils (%) (Auto) 1.2, Sodium Level 136, Potassium Level 4.5, Chloride Level 100, Carbon Dioxide Level 25, Anion Gap 11, Blood Urea Nitrogen 8, Creatinine 1.0, Estimat Glomerular Filtration Rate > 60, Glucose Level 72L, Calcium Level 9.3, Phosphorus Level 3.9, Magnesium Level 2.1 Current Medications Medications (Trade) Dose Ordered Sig/Kendra Route PRN Reason Start Time Stop Time Status Last Admin Dose Admin Acetaminophen (Tylenol) 650 mg Q6H PRN RECTAL Mild Pain (Pain Scale 1-3) 05/31/19 01:15 06/30/19 01:14 06/09/19 16:19 Acetylcysteine (Mucomyst) 100 mg Q4HRT [facility] 05/31/19 17:00 06/30/19 16:59 06/13/19 03:09 Albuterol/ Ipratropium (Albuterol/ Ipratropium) 3 ml Q4HRT [facility] 06/13/19 15:00 06/18/19 14:59 Amikacin Protocol (Amikacin pharmacy to dose) 1 ea DAILY PRN MISC Per rx protocol 06/09/19 17:45 07/09/19 17:44 Amikacin Sulfate 700 mg/Sodium Chloride 112.8 ml @ 112.8 mls/ hr Q24H IV 06/09/19 20:00 06/16/19 19:59 06/12/19 20:14 Ascorbic Acid (Vitamin C) 500 mg DAILY NG 06/06/19 09:00 07/02/19 08:59 06/13/19 08:43 Barium Sulfate (Varibar Honey) 250 ml NOW PRN RAD 06/11/19 13:45 06/14/19 13:41 Barium Sulfate (Varibar [place]) 240 ml NOW PRN RAD 06/11/19 13:45 06/14/19 13:41 Barium Sulfate (Varibar Pudding) 230 ml NOW PRN RAD 06/11/19 13:45 06/14/19 13:41 Bisacodyl (Dulcolax) 10 mg DAILYPRN PRN RECTAL constipation 05/31/19 10:45 06/29/19 10:44 Cyanocobalamin (Vitamin B-12 Tab) 100 mcg DAILY NG 06/05/19 09:00 06/30/19 08:59 06/13/19 08:43 Docusate Sodium (Colace) 100 mg EVERY 12 HOURS NG 06/05/19 21:00 07/05/19 20:59 06/13/19 08:42 Famotidine (Pepcid I.v.) 20 mg Q12HR IVP 05/31/19 09:00 06/30/19 08:59 06/13/19 08:43 Ferrous Sulfate (Feosol) 325 mg DAILY NG 06/05/19 09:00 07/05/19 08:59 06/13/19 08:42 Fluconazole/ Sodium Chloride 200 ml @ 200 mls/hr Q24H IV 06/09/19 18:00 06/16/19 17:59 06/12/19 18:07 Heparin Sodium (Porcine) (Heparin 5000 units/ml) 5,000 units EVERY 12 HOURS SUBQ 05/31/19 09:00 06/29/19 08:59 06/13/19 08:45 Levothyroxine Sodium (Synthroid) 25 mcg DAILY IV 06/04/19 10:30 07/04/19 10:29 06/13/19 10:25 Lorazepam (Ativan 2mg/ml 1ml) 1 mg Q6H PRN IV Agitation 06/11/19 20:30 06/18/19 20:29 Meropenem 1 gm/ Sodium Chloride 100 ml @ 200 mls/hr Q8HR IVPB 06/09/19 22:00 06/14/19 21:59 06/13/19 05:52 Midodrine (Pro-Amatine) 5 mg TIDPRN PRN NG SBP<90 06/05/19 15:00 06/29/19 12:59 06/07/19 03:36 Morphine Sulfate (Morphine Sulfate) 2 mg Q4H PRN IVP For Pain 06/11/19 20:34 06/18/19 20:33 06/11/19 21:00 Multivitamins (Multivitamins) 1 tab DAILY NG 06/05/19 09:00 07/02/19 08:59 06/13/19 08:43 Vancomycin HCl (Vanco rx to dose) 1 ea DAILY PRN MISC Per rx protocol 06/09/19 17:45 07/08/19 07:59 Vancomycin HCl 500 mg/Dextrose 110 ml @ 110 mls/hr Q12HR@1000,2200 IVPB 06/10/19 10:00 06/15/19 09:59 06/13/19 10:25 Zinc Sulfate (Zinc Sulfate) 220 mg DAILY NG 06/05/19 09:00 06/15/19 08:59 06/13/19 08:43 Dwayne Barrientos MD Jun 13, 2019 13:30
--- NOTE | 2019-06-13 13:42 | Surgery Progress Note ---
Surgery Progress Note Subjective Additional Comments PEG placed by GI. Start tube feeds. Labs noted. Exam stable. Afebrile, hemodynamically stable Objective Last 24 Hour Vital Signs Date Time Temp Pulse Resp B/P (MAP) Pulse Ox O2 Delivery O2 Flow Rate FiO2 06/13/19 12:00 98.9 101 23 106/56 (73) 93 06/13/19 09:37 100 06/13/19 08:00 99.1 106 22 138/63 (88) 92 06/13/19 08:00 Nasal Cannula 5.0 06/13/19 07:27 96 Nasal Cannula 4.0 36 06/13/19 04:00 Bi-pap 06/13/19 04:00 98.2 91 27 99/48 (65) 97 06/13/19 04:00 91 06/13/19 03:12 82 22 97 Bi-Pap 50 82 22 96 06/13/19 03:10 82 22 95 Facial 50 06/13/19 01:24 85 25 96 Facial 50 06/13/19 00:00 Bi-pap 06/13/19 00:00 97.4 96 22 100/50 (67) 97 06/13/19 00:00 94 06/12/19 22:59 98 20 98 Nasal Cannula 4.0 36 101 20 96 06/12/19 22:59 90 16 97 Facial 50 06/12/19 20:00 Nasal Cannula 5.0 06/12/19 20:00 90 06/12/19 20:00 97.8 93 21 104/53 (70) 99 06/12/19 20:00 5.0 06/12/19 19:35 96 Nasal Cannula 4.0 36 06/12/19 19:35 96 20 98 Nasal Cannula 4.0 36 90 20 98 06/12/19 16:14 Nasal Cannula 5.0 06/12/19 16:00 98.6 20 117/75 (89) 98 06/12/19 16:00 93 06/12/19 14:46 74 22 100 Venturi Mask 12.0 50 77 22 97 I&O Intake and Output 06/12/19 06/13/19 19:00 07:00 Intake Total 50 ml Output Total 1100 ml 400 ml Balance -1050 ml -400 ml IV Total 50 ml Output Urine Total 1100 ml 400 ml Dressing: saturated Wound: other Drains: other Cardiovascular: RSR Respiratory: decreased breath sounds Abdomen: soft, present bowel sounds, other, non-distended Extremities: no cyanosis, other Laboratory Tests Test 06/13/19 03:56 White Blood Count 8.8 K/UL (4.8-10.8) Red Blood Count 3.76 M/UL (4.70-6.10) L Hemoglobin 12.3 G/DL (14.2-18.0) L Hematocrit 36.1 % (42.0-52.0) L Mean Corpuscular Volume 96 FL (80-99) Mean Corpuscular Hemoglobin 32.8 PG (27.0-31.0) H Mean Corpuscular Hemoglobin Concent 34.1 G/DL (32.0-36.0) Red Cell Distribution Width 12.6 % (11.6-14.8) Platelet Count 406 K/UL (150-450) Mean Platelet Volume 5.7 FL (6.5-10.1) L Neutrophils (%) (Auto) 69.6 % (45.0-75.0) Lymphocytes (%) (Auto) 24.4 % (20.0-45.0) Monocytes (%) (Auto) 4.1 % (1.0-10.0) Eosinophils (%) (Auto) 0.8 % (0.0-3.0) Basophils (%) (Auto) 1.2 % (0.0-2.0) Sodium Level 136 MMOL/L (136-145) Potassium Level 4.5 MMOL/L (3.5-5.1) Chloride Level 100 MMOL/L (98-107) Carbon Dioxide Level 25 MMOL/L (21-32) Anion Gap 11 mmol/L (5-15) Blood Urea Nitrogen 8 mg/dL (7-18) Creatinine 1.0 MG/DL (0.55-1.30) Estimat Glomerular Filtration Rate > 60 mL/min (>60) Glucose Level 72 MG/DL (74-106) L Calcium Level 9.3 MG/DL (8.5-10.1) Phosphorus Level 3.9 MG/DL (2.5-4.9) Magnesium Level 2.1 MG/DL (1.8-2.4) Plan Problems: (1) Ulcer of right heel Assessment & Plan: This is a 54-year-old male with multiple medical comorbidities who is currently presented for fever and tachycardia. Patient identified to have abnormal decubitus pressure ulcer on right heel. On examination patient has a stage III full-thickness right heel decubitus ulcer periwound intact but mildly macerated. Surrounding erythema. No drainage. No underlying abscess. No bone palpable. No foul odor. Labs noted and identified. No signs of acute active inflammatory or infectious process from this. Patient does have a leukocytosis that significant. Will continue work-up for etiology Will recommend local wound care. Apply Thera honey followed by up to foam dressing daily. We will monitor. Thank you for this consultation we will follow with recommendations d/c planning (2) Fever Assessment & Plan: Low-grade fevers, tachycardia, leukocytosis, abnormal labs Head to toe skin integrity and wound eval completed as above UA noted chest x-ray noted aspiration pneumonia Continue antibiotics as per infectious disease PEG tube Start tube feeds IV fluids. (3) Tachycardia (4) Severe sepsis Assessment & Plan: DAILY ESTIMATED NEEDS: Needs based on wound, wasting, pulmonary/ 46kg 30-35 kcals/kg [id number] total kcals 1.3-1.8 g protein/kg 60-83 g total protein 25-30 mL/kg 7632-3520 total fluid mLs NUTRITION DIAGNOSIS: * Swallowing difficulty R/T dysphagia, respiratory status as evidenced by h/o Down's syndrome, on BIPAP qhs, now s/p PEG placement, NPO at this time. * Increased kcal/prot needs R/T wound healing and wasting as evidenced by pt admitted w/ stage 3 rt heel wound, w/ mild-moderate generalized wasting. CURRENT TF:NPO ENTERAL NUTRITION RECOMMENDATIONS: Jevity 1.2 @ 50ml/hr x 24 hrs to provide 1200ml, 1440kcal, 66g prot, 968ml free water * When medically appropriate, initiate Jevity 1.2 @ 20ml/hr x 6 hrs. * Advance 10ml q 4-6 hrs as tolerated to goal rate. * HOB over 30 degrees * Water flush of 100ml q 8 hrs ADDITIONAL RECOMMENDATIONS: * Calibrated bedscale wt - bedscale wt per RD= 101lbs vs EMR ay=538ghr * Monitor lytes, replete as needed * Wound healing: continue MVI, Vit C 500mg QD, and ZnSO4 : add Jeremy 1pkt BID * Monitor TF tolerance: s/p PEG placement on 10/25 Alexis Ruffin Jun 13, 2019 13:42
--- NOTE | 2019-06-13 13:51 | Infectious Diseases Prog Note ---
Assessment/Plan Assessment/Plan ASSESSMENT AND PLAN: 1. aspiration pna/HCAP, sepsis, leukocytosis, fevers, sirs, sob, bipap recurrent fevers - ? new nosocomial infection, fungemia risk - urine an sputum culture with yeast suggestive of potential fungemia - meropenem x 5 days more and diflucan x 7 days more - discontinue amikacin and vancomycin - f/u on labs and chest x-ray - clinically improved today, off bipap, much less sob and more alert - f/u on swallow study - skin care per protocol 2. Hypoxic. Continue treatment per Pulmonary Medicine. The patient is on a breathing mask. 3. Right heel wound was noted. He has been seen by Surgery. Upon reviewing the Surgery note, it does not seem to be acutely infected. Continue wound care per Surgery. 4. The patient has history of Down syndrome. 5. Nonverbal. 6. Hypothyroidism. Continue thyroid supplementation. 7. Hypertension. Continue blood pressure treatment per primary care team. 8. Congestive heart failure. 9. Hyperlipidemia. 10. Anemia. 11. Gastroesophageal reflux disease. 12. . 13. Hypoxia. 14. Breathing mask. 15. Wound care protocol. Continue wound treatment per protocol. 16. Allergies to ketamine and NSAIDs. 17. Social history is negative. 18. Family history is noncontributory. 19. MAR is noted. 20. Case was discussed with RN. 21. Case was discussed with Dr. Durán. 22. mrsa and vre colonization Subjective Constitutional: Denies: fever HEENT: Reports: congestion - less Respiratory: Reports: shortness of breath - less Cardiovascular: Denies: chest pain Gastrointestinal/Abdominal: Denies: nausea, vomiting, diarrhea Genitourinary: Reports: other - + jones Neurologic: Reports: weakness Psychiatric: Reports: other - na Skin: Denies: rash Hematologic: Denies: bleeding Musculoskeletal: Reports: other - na Allergies: Coded Allergies: KETAMINE (Verified Allergy, Unknown, 05/29/19) NSAIDS (NON-STEROIDAL ANTI-INFLAMMA (Verified Allergy, Unknown, 05/29/19) Objective Vital Signs Last 24 Hour Vital Signs Date Time Temp Pulse Resp B/P (MAP) Pulse Ox O2 Delivery O2 Flow Rate FiO2 06/13/19 12:00 Nasal Cannula 5.0 06/13/19 12:00 98.9 101 23 106/56 (73) 93 06/13/19 09:37 100 06/13/19 08:00 99.1 106 22 138/63 (88) 92 06/13/19 08:00 Nasal Cannula 5.0 06/13/19 07:27 96 Nasal Cannula 4.0 36 06/13/19 04:00 Bi-pap 06/13/19 04:00 98.2 91 27 99/48 (65) 97 06/13/19 04:00 91 06/13/19 03:12 82 22 97 Bi-Pap 50 82 22 96 06/13/19 03:10 82 22 95 Facial 50 06/13/19 01:24 85 25 96 Facial 50 06/13/19 00:00 Bi-pap 06/13/19 00:00 97.4 96 22 100/50 (67) 97 06/13/19 00:00 94 06/12/19 22:59 98 20 98 Nasal Cannula 4.0 36 101 20 96 06/12/19 22:59 90 16 97 Facial 50 06/12/19 20:00 Nasal Cannula 5.0 06/12/19 20:00 90 06/12/19 20:00 97.8 93 21 104/53 (70) 99 06/12/19 20:00 5.0 06/12/19 19:35 96 Nasal Cannula 4.0 36 06/12/19 19:35 96 20 98 Nasal Cannula 4.0 36 90 20 98 06/12/19 16:14 Nasal Cannula 5.0 06/12/19 16:00 98.6 20 117/75 (89) 98 06/12/19 16:00 93 06/12/19 14:46 74 22 100 Venturi Mask 12.0 50 77 22 97 Height (Feet): 5 Height (Inches): 1.00 Weight (Pounds): 124 General Appearance: no acute distress, other - alertness increased HEENT: normocephalic, atraumatic, anicteric, mucous membranes moist Respiratory/Chest: crackles/rales, rhonchi - bilaterally Cardiovascular: normal rate, regular rhythm, no gallop/murmur, no JVD Abdomen: normal bowel sounds, soft, non tender, no organomegaly, non distended Genitourinary: other - + jones - urine slt cloudy Extremities: no cyanosis Skin: no rash 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 Most likely on the basis of pulmonary edema; other etiologies including inflammatory also possible. Posterior reticular opacities and nodular airspace opacities, could indicate active inflammatory changes or airspace edema Minimal pericardial thickening or fluid Mild diffuse esophageal wall thickening, could indicate esophagitis. Correlate with clinical findings Chest x-ray - 06/03/19 - Procedure: XRAY Chest 1v Indication: Shortness of breath Technique: One view of the chest Comparison: 2018 Findings: Body habitus limits evaluation. There is diffuse bilateral interstitial and airspace disease, increased from the previous exam. There is persistent right greater than left pleural fluid Impression: Worsening of bilateral interstitial and airspace edema, since prior study of 2 days earlier Chest x-ray - 06/06/19 - COMPARISON: Chest x-ray, 06 03 19 FINDINGS: Lungs: Interstitial thickening and airspace opacities bilaterally have moderately improved. Somewhat worsening right lower lung airspace opacities. Pleural space: Small bilateral pleural effusions, worse on the right, similar to prior study. Left costophrenic angle not on the [id number]. No pneumothorax. Heart: Unremarkable. No cardiomegaly. Mediastinum: Unremarkable. Bones joints: Thoracolumbar scoliosis. Tubes, lines and devices: NG tube traverses the diaphragm. IMPRESSION: 1. Interstitial thickening and airspace opacities bilaterally have moderately improved. Somewhat worsening right lower lung airspace opacities, somewhat consolidative. 2. Small bilateral pleural effusions, worse on the right, similar to prior study. Left costophrenic angle not on the [id number]. Chest x-ray - 06/09/19 - Procedure: XRAY Chest 1v Indication: Dyspnea Technique: One view of the chest Comparison: 06/06/2019 Findings: Nasogastric tube is again demonstrated. Bilateral interstitial airspace opacities, right basilar dense consolidation, bilateral pleural effusions are unchanged. Impression: Unchanged, over 3 days, findings as above. Chest x-ray - 06/11/19 - Procedure: XRAY Chest 1v Indication: Shortness of breath Technique: One view of the chest Comparison: 06/09/2019 Findings: Less optimal inspiration currently. Right basilar and left retrocardiac infiltrates are unchanged. Bilateral pleural effusions are unchanged. Impression: Unchanged, over 2 days, findings as above. Chest x-ray - 06/13/19 - IMPRESSION: 1. Persistent patchy opacity in the right lower lung as well as the retrocardiac region, concerning for pneumonia. 2. No significant change in the increased interstitial markings concerning for pulmonary vascular congestion versus interstitial pneumonitis. 3. Possible small bilateral effusions, stable. Microbiology Date/Time Source Procedure Growth Status 06/12/19 04:15 Sputum Expectorated Gram Stain - Final Resulted 06/12/19 04:15 Sputum Expectorated Sputum Culture Pending Resulted 06/11/19 09:15 Sputum Induced Gram Stain - Final Resulted 06/11/19 09:15 Sputum Culture - Preliminary Usual Respiratory Patricia YEAST Resulted Laboratory Tests Test 06/13/19 03:56 White Blood Count 8.8 K/UL (4.8-10.8) Red Blood Count 3.76 M/UL (4.70-6.10) L Hemoglobin 12.3 G/DL (14.2-18.0) L Hematocrit 36.1 % (42.0-52.0) L Mean Corpuscular Volume 96 FL (80-99) Mean Corpuscular Hemoglobin 32.8 PG (27.0-31.0) H Mean Corpuscular Hemoglobin Concent 34.1 G/DL (32.0-36.0) Red Cell Distribution Width 12.6 % (11.6-14.8) Platelet Count 406 K/UL (150-450) Mean Platelet Volume 5.7 FL (6.5-10.1) L Neutrophils (%) (Auto) 69.6 % (45.0-75.0) Lymphocytes (%) (Auto) 24.4 % (20.0-45.0) Monocytes (%) (Auto) 4.1 % (1.0-10.0) Eosinophils (%) (Auto) 0.8 % (0.0-3.0) Basophils (%) (Auto) 1.2 % (0.0-2.0) Sodium Level 136 MMOL/L (136-145) Potassium Level 4.5 MMOL/L (3.5-5.1) Chloride Level 100 MMOL/L (98-107) Carbon Dioxide Level 25 MMOL/L (21-32) Anion Gap 11 mmol/L (5-15) Blood Urea Nitrogen 8 mg/dL (7-18) Creatinine 1.0 MG/DL (0.55-1.30) Estimat Glomerular Filtration Rate > 60 mL/min (>60) Glucose Level 72 MG/DL (74-106) L Calcium Level 9.3 MG/DL (8.5-10.1) Phosphorus Level 3.9 MG/DL (2.5-4.9) Magnesium Level 2.1 MG/DL (1.8-2.4) Current Medications Medications (Trade) Dose Ordered Sig/Kendra Route PRN Reason Start Time Stop Time Status Last Admin Dose Admin Acetaminophen (Tylenol) 650 mg Q6H PRN RECTAL Mild Pain (Pain Scale 1-3) 05/31/19 01:15 06/30/19 01:14 06/09/19 16:19 Acetylcysteine (Mucomyst) 100 mg Q4HRT N 05/31/19 17:00 06/30/19 16:59 06/13/19 03:09 Albuterol/ Ipratropium (Albuterol/ Ipratropium) 3 ml Q4HRT N 06/13/19 15:00 06/18/19 14:59 Amikacin Protocol (Amikacin pharmacy to dose) 1 ea DAILY PRN MISC Per rx protocol 06/09/19 17:45 07/09/19 17:44 Amikacin Sulfate 700 mg/Sodium Chloride 112.8 ml @ 112.8 mls/ hr Q24H IV 06/09/19 20:00 06/16/19 19:59 06/12/19 20:14 Ascorbic Acid (Vitamin C) 500 mg DAILY NG 06/06/19 09:00 07/02/19 08:59 06/13/19 08:43 Barium Sulfate (Varibar Honey) 250 ml NOW PRN RAD 06/11/19 13:45 06/14/19 13:41 Barium Sulfate (Varibar [place]) 240 ml NOW PRN RAD 06/11/19 13:45 06/14/19 13:41 Barium Sulfate (Varibar Pudding) 230 ml NOW PRN RAD 06/11/19 13:45 06/14/19 13:41 Bisacodyl (Dulcolax) 10 mg DAILYPRN PRN RECTAL constipation 05/31/19 10:45 06/29/19 10:44 Cyanocobalamin (Vitamin B-12 Tab) 100 mcg DAILY NG 06/05/19 09:00 06/30/19 08:59 06/13/19 08:43 Docusate Sodium (Colace) 100 mg EVERY 12 HOURS NG 06/05/19 21:00 07/05/19 20:59 06/13/19 08:42 Famotidine (Pepcid I.v.) 20 mg Q12HR IVP 05/31/19 09:00 06/30/19 08:59 06/13/19 08:43 Ferrous Sulfate (Feosol) 325 mg DAILY NG 06/05/19 09:00 07/05/19 08:59 06/13/19 08:42 Fluconazole/ Sodium Chloride 200 ml @ 200 mls/hr Q24H IV 06/09/19 18:00 06/16/19 17:59 06/12/19 18:07 Heparin Sodium (Porcine) (Heparin 5000 units/ml) 5,000 units EVERY 12 HOURS SUBQ 05/31/19 09:00 06/29/19 08:59 06/13/19 08:45 Levothyroxine Sodium (Synthroid) 25 mcg DAILY IV 06/04/19 10:30 07/04/19 10:29 06/13/19 10:25 Lorazepam (Ativan 2mg/ml 1ml) 1 mg Q6H PRN IV Agitation 06/11/19 20:30 06/18/19 20:29 Meropenem 1 gm/ Sodium Chloride 100 ml @ 200 mls/hr Q8HR IVPB 06/09/19 22:00 06/14/19 21:59 06/13/19 05:52 Midodrine (Pro-Amatine) 5 mg TIDPRN PRN NG SBP<90 06/05/19 15:00 06/29/19 12:59 06/07/19 03:36 Morphine Sulfate (Morphine Sulfate) 2 mg Q4H PRN IVP For Pain 06/11/19 20:34 06/18/19 20:33 06/11/19 21:00 Multivitamins (Multivitamins) 1 tab DAILY NG 06/05/19 09:00 07/02/19 08:59 06/13/19 08:43 Vancomycin HCl (Vanco rx to dose) 1 ea DAILY PRN MISC Per rx protocol 06/09/19 17:45 07/08/19 07:59 Vancomycin HCl 500 mg/Dextrose 110 ml @ 110 mls/hr Q12HR@1000,2200 IVPB 06/10/19 10:00 06/15/19 09:59 06/13/19 10:25 Zinc Sulfate (Zinc Sulfate) 220 mg DAILY NG 06/05/19 09:00 06/15/19 08:59 06/13/19 08:43 Rafia Rand MD Jun 13, 2019 13:51
[2019-06-13] MEDS: Albuterol/Ipratropium 3ml neb HHN SCH ×3 (15:25→23:12)
[2019-06-13 16:00] VITALS: BP 100/44
[2019-06-13] MEDS ORDERED: NS 275ml ONE (16:16)
[2019-06-13] MEDS ORDERED: Tubing IV Secondary IV ONE (16:16)
--- NOTE | 2019-06-13 17:05 | Cardiac Electrophysiology PN ---
Assessment/Plan Assessment/Plan 1. Supraventricular tachycardia. Off beta morenita or CA blockers for hypotension 2. CHF due to diastolic dysfunction with elevated BNP. Off Lasix as the patient is septic and blood pressure in the borderline on midodrine. EF of 55%. 3. Hypotension on Midodrine. 4. Respiratory failure. On Venturi mask per Dr. Luevano due to pneumonia. 5. Severe sepsis is on broad-spectrum IV antibiotics per Dr. Rand. 6. Hypothyroidism. 7. Iron deficiency anemia. 8. Decubitus ulcer. 9. DNR and DNI 10. Down syndrome. 11. Dysphagia, S/P PEG DW RN Subjective Subjective In SDU. No SVT or VT.. Had PEG yesterday Objective Last 24 Hour Vital Signs Date Time Temp Pulse Resp B/P (MAP) Pulse Ox O2 Delivery O2 Flow Rate FiO2 06/13/19 16:00 118 06/13/19 16:00 83 06/13/19 16:00 Nasal Cannula 5.0 06/13/19 15:25 87 20 98 Bi-Pap 50 79 20 96 06/13/19 12:00 Nasal Cannula 5.0 06/13/19 12:00 98.9 101 23 106/56 (73) 93 06/13/19 12:00 99 06/13/19 09:37 100 06/13/19 08:00 99.1 106 22 138/63 (88) 92 06/13/19 08:00 Nasal Cannula 5.0 06/13/19 07:27 96 Nasal Cannula 4.0 36 06/13/19 04:00 Bi-pap 06/13/19 04:00 98.2 91 27 99/48 (65) 97 06/13/19 04:00 91 06/13/19 03:12 82 22 97 Bi-Pap 50 82 22 96 06/13/19 03:10 82 22 95 Facial 50 06/13/19 01:24 85 25 96 Facial 50 06/13/19 00:00 Bi-pap 06/13/19 00:00 97.4 96 22 100/50 (67) 97 06/13/19 00:00 94 06/12/19 22:59 98 20 98 Nasal Cannula 4.0 36 101 20 96 06/12/19 22:59 90 16 97 Facial 50 06/12/19 20:00 Nasal Cannula 5.0 06/12/19 20:00 90 06/12/19 20:00 97.8 93 21 104/53 (70) 99 06/12/19 20:00 5.0 06/12/19 19:35 96 Nasal Cannula 4.0 36 06/12/19 19:35 96 20 98 Nasal Cannula 4.0 36 90 20 98 Intake and Output 06/12/19 06/13/19 19:00 07:00 Intake Total 50 ml Output Total 1100 ml 400 ml Balance -1050 ml -400 ml IV Total 50 ml Output Urine Total 1100 ml 400 ml Laboratory Tests Test 06/13/19 03:56 White Blood Count 8.8 K/UL (4.8-10.8) Red Blood Count 3.76 M/UL (4.70-6.10) L Hemoglobin 12.3 G/DL (14.2-18.0) L Hematocrit 36.1 % (42.0-52.0) L Mean Corpuscular Volume 96 FL (80-99) Mean Corpuscular Hemoglobin 32.8 PG (27.0-31.0) H Mean Corpuscular Hemoglobin Concent 34.1 G/DL (32.0-36.0) Red Cell Distribution Width 12.6 % (11.6-14.8) Platelet Count 406 K/UL (150-450) Mean Platelet Volume 5.7 FL (6.5-10.1) L Neutrophils (%) (Auto) 69.6 % (45.0-75.0) Lymphocytes (%) (Auto) 24.4 % (20.0-45.0) Monocytes (%) (Auto) 4.1 % (1.0-10.0) Eosinophils (%) (Auto) 0.8 % (0.0-3.0) Basophils (%) (Auto) 1.2 % (0.0-2.0) Sodium Level 136 MMOL/L (136-145) Potassium Level 4.5 MMOL/L (3.5-5.1) Chloride Level 100 MMOL/L (98-107) Carbon Dioxide Level 25 MMOL/L (21-32) Anion Gap 11 mmol/L (5-15) Blood Urea Nitrogen 8 mg/dL (7-18) Creatinine 1.0 MG/DL (0.55-1.30) Estimat Glomerular Filtration Rate > 60 mL/min (>60) Glucose Level 72 MG/DL (74-106) L Calcium Level 9.3 MG/DL (8.5-10.1) Phosphorus Level 3.9 MG/DL (2.5-4.9) Magnesium Level 2.1 MG/DL (1.8-2.4) Mycoplasma pneumoniae IgG Antibody Pending Mycoplasma pneumoniae IgM Ab Titer Pending Microbiology Date/Time Source Procedure Growth Status 06/12/19 04:15 Sputum Expectorated Gram Stain - Final Resulted 06/12/19 04:15 Sputum Expectorated Sputum Culture Pending Resulted 06/11/19 09:15 Sputum Induced Gram Stain - Final Resulted 06/11/19 09:15 Sputum Culture - Preliminary Usual Respiratory Patricia YEAST Resulted Objective HEAD AND NECK: Mild JVD. LUNGS: Coarse rhonchi. CARDIOVASCULAR: Regular S1 and S2 with no gallop. ABDOMEN: Soft.PEG in place EXTREMITIES: No pitting edema. Valerio Owen MD Jun 13, 2019 17:05
[2019-06-13 20:00] VITALS: BP 119/57
[2019-06-13] MEDS: Acetaminophen 650 MG SUPP RECTAL PRN (21:10)
[2019-06-13] MEDS: Azithromycin 250mg tab GT SCH (22:21)
[2019-06-14] VITALS: BP 90/49
[2019-06-14 00:34] LABS: APPEARANCE,URINE CLEAR; BILIRUBIN, URINE NEGATIVE (NEGATIVE); COLOR,URINE PALE YELLOW; GLUCOSE, URINE (UA) NEGATIVE (NEGATIVE); KETONES,URINE 2+ (NEGATIVE); LEUKOCYTE ESTERASE ,URINE NEGATIVE (NEGATIVE); NITRITE,URINE NEGATIVE (NEGATIVE); PH,URINE 8 (4.5-8.0); PROTEIN,URINE 2+ (NEGATIVE); UROBILINOGEN,URINE NORMAL MG/DL (0.0-1.0)
[2019-06-14] MEDS: Albuterol/Ipratropium 3ml neb HHN SCH ×6 (03:17→23:04)
[2019-06-14 04:00] VITALS: BP_SYST 111; BP_SYST 88; BP_DIAS 47; BP_DIAS 53
[2019-06-14 06:45] LABS: BASOPHILS % (AUTO) 1.8 % (0.0-2.0); EOSINOPHILS % (AUTO) 0.8 % (0.0-3.0); HEMATOCRIT 36.5 % (42.0-52.0); HEMOGLOBIN 12.3 G/DL (14.2-18.0); LYMPHOCYTES % (AUTO) 23.9 % (20.0-45.0); MEAN CORPUSCULAR VOLUME 94 FL (80-99); MONOCYTES % (AUTO) 6.8 % (1.0-10.0); NEUTROPHILS % (AUTO) 66.7 % (45.0-75.0); PLATELET COUNT 397 K/UL (150-450); RED BLOOD COUNT 3.88 M/UL (4.70-6.10); WHITE BLOOD COUNT 10.7 K/UL (4.8-10.8)
[2019-06-14 07:17] LABS: ALANINE AMINOTRANSFERASE 72 U/L (12-78); ALBUMIN 2.3 G/DL (3.4-5.0); ALBUMIN/GLOBULIN RATIO 0.4 (1.0-2.7); ALKALINE PHOSPHATASE 70 U/L (46-116); ANION GAP 12 mmol/L (5-15); ASPARTATE AMINO TRANSFERASE 40 U/L (15-37); BILIRUBIN,TOTAL 0.4 MG/DL (0.2-1.0); BLOOD UREA NITROGEN 12 mg/dL (7-18); CALCIUM 9.4 MG/DL (8.5-10.1); CARBON DIOXIDE 27 MMOL/L (21-32); CHLORIDE 98 MMOL/L (98-107); CREATININE 1.1 MG/DL (0.55-1.30); POTASSIUM 3.1 MMOL/L (3.5-5.1); SODIUM 137 MMOL/L (136-145)
[2019-06-14 08:00] VITALS: BP 94/47
--- NOTE | 2019-06-14 08:28 | Cardiac Electrophysiology PN ---
Assessment/Plan Assessment/Plan 1. Supraventricular tachycardia. Off beta morenita or CA blockers for hypotension 2. CHF due to diastolic dysfunction with elevated BNP. Off Lasix as the patient is septic and blood pressure in the borderline on midodrine. EF of 55%. 3. Hypotension on Midodrine. 4. Respiratory failure. On Venturi mask /BIPAP per Dr. Luevano 5. Severe sepsis is on broad-spectrum IV antibiotics per Dr. Rand. 6. Hypothyroidism. 7. Iron deficiency anemia. 8. Decubitus ulcer. 9. DNR and DNI 10. Down syndrome. 11. Dysphagia, S/P PEG DW RN Subjective Subjective In SDU. No SVT or VT.On BIPAP Objective Last 24 Hour Vital Signs Date Time Temp Pulse Resp B/P (MAP) Pulse Ox O2 Delivery O2 Flow Rate FiO2 06/14/19 05:18 88 22 98 Facial 35 06/14/19 04:00 98.2 81 22 111/53 (72) 98 06/14/19 04:00 Bi-pap 06/14/19 04:00 81 06/14/19 03:32 83 19 97 Bi-Pap 35 06/14/19 03:17 83 16 96 Bi-Pap 35 06/14/19 03:16 83 16 96 Facial 35 06/14/19 01:12 83 26 96 Facial 35 06/14/19 00:00 111 06/14/19 00:00 Bi-pap 06/14/19 00:00 99.5 95 20 90/49 (63) 99 06/13/19 23:27 109 25 98 Bi-Pap 35 06/13/19 23:27 107 26 98 Facial 35 06/13/19 23:12 97 20 97 Nasal Cannula 4.0 36 06/13/19 22:00 5.0 06/13/19 21:40 100.2 06/13/19 20:00 101.1 110 21 119/57 (77) 98 06/13/19 20:00 Nasal Cannula 5.0 06/13/19 20:00 112 06/13/19 19:52 116 20 98 Nasal Cannula 4.0 36 06/13/19 19:37 110 20 95 Nasal Cannula 4.0 36 06/13/19 19:36 95 Nasal Cannula 4.0 36 06/13/19 16:00 100.0 106 23 100/44 (62) 93 06/13/19 16:00 118 06/13/19 16:00 83 06/13/19 16:00 Nasal Cannula 5.0 06/13/19 15:25 87 20 98 Bi-Pap 50 79 20 96 06/13/19 12:00 Nasal Cannula 5.0 06/13/19 12:00 98.9 101 23 106/56 (73) 93 06/13/19 12:00 99 06/13/19 09:37 100 Intake and Output 06/13/19 06/14/19 19:00 07:00 Intake Total 690 ml 1080 ml Output Total 950 ml 400 ml Balance -260 ml 680 ml Free Water 200 ml 250 ml IV Total 310 ml Tube Feeding 430 ml 520 ml Other 60 ml Output Urine Total 950 ml 400 ml Laboratory Tests Test 06/13/19 23:53 06/14/19 03:10 Urine Color Pale yellow Urine Appearance Clear Urine pH 8 (4.5-8.0) Urine Specific [place] 1.010 (1.005-1.035) Urine Protein 2+ (NEGATIVE) H Urine Glucose (UA) Negative (NEGATIVE) Urine Ketones 2+ (NEGATIVE) H Urine Blood 2+ (NEGATIVE) H Urine Nitrite Negative (NEGATIVE) Urine Bilirubin Negative (NEGATIVE) Urine Urobilinogen Normal MG/DL (0.0-1.0) Urine Leukocyte Esterase Negative (NEGATIVE) Urine RBC 2-4 /HPF (0 - 0) H Urine WBC 0-2 /HPF (0 - 0) Urine Squamous Epithelial Cells Few /LPF (NONE/OCC) Urine Amorphous Sediment Few /LPF (NONE) H Urine Bacteria Few /HPF (NONE) Urine Mucus Few /LPF (NONE/OCC) H White Blood Count 10.7 K/UL (4.8-10.8) Red Blood Count 3.88 M/UL (4.70-6.10) L Hemoglobin 12.3 G/DL (14.2-18.0) L Hematocrit 36.5 % (42.0-52.0) L Mean Corpuscular Volume 94 FL (80-99) Mean Corpuscular Hemoglobin 31.6 PG (27.0-31.0) H Mean Corpuscular Hemoglobin Concent 33.6 G/DL (32.0-36.0) Red Cell Distribution Width 12.0 % (11.6-14.8) Platelet Count 397 K/UL (150-450) Mean Platelet Volume 6.2 FL (6.5-10.1) L Neutrophils (%) (Auto) 66.7 % (45.0-75.0) Lymphocytes (%) (Auto) 23.9 % (20.0-45.0) Monocytes (%) (Auto) 6.8 % (1.0-10.0) Eosinophils (%) (Auto) 0.8 % (0.0-3.0) Basophils (%) (Auto) 1.8 % (0.0-2.0) Sodium Level 137 MMOL/L (136-145) Potassium Level 3.1 MMOL/L (3.5-5.1) L Chloride Level 98 MMOL/L (98-107) Carbon Dioxide Level 27 MMOL/L (21-32) Anion Gap 12 mmol/L (5-15) Blood Urea Nitrogen 12 mg/dL (7-18) Creatinine 1.1 MG/DL (0.55-1.30) Estimat Glomerular Filtration Rate > 60 mL/min (>60) Glucose Level 101 MG/DL (74-106) Calcium Level 9.4 MG/DL (8.5-10.1) Total Bilirubin 0.4 MG/DL (0.2-1.0) Aspartate Amino Transf (AST/SGOT) 40 U/L (15-37) H Alanine Aminotransferase (ALT/SGPT) 72 U/L (12-78) Alkaline Phosphatase 70 U/L (46-116) Total Protein 7.9 G/DL (6.4-8.2) Albumin 2.3 G/DL (3.4-5.0) L Globulin 5.6 g/dL Albumin/Globulin Ratio 0.4 (1.0-2.7) L Microbiology Date/Time Source Procedure Growth Status 06/12/19 04:15 Sputum Expectorated Gram Stain - Final Resulted 06/12/19 04:15 Sputum Expectorated Sputum Culture Pending Resulted 06/11/19 09:15 Sputum Induced Gram Stain - Final Resulted 06/11/19 09:15 Sputum Culture - Preliminary Usual Respiratory Patricia YEAST Resulted Objective HEAD AND NECK: Mild JVD. BIPAP is on LUNGS: Coarse rhonchi. CARDIOVASCULAR: Regular S1 and S2 with no gallop. ABDOMEN: Soft.PEG in place EXTREMITIES: No pitting edema. Valerio Owen MD Jun 14, 2019 08:28
[2019-06-14] MEDS: Vitamin B-12 100mcg tab NG SCH (09:10)
[2019-06-14] MEDS: Heparin 5000 units/ml inj SUBQ SCH ×2 (09:10→20:26)
[2019-06-14] MEDS: Zinc Sulfate 220mg cap NG SCH (09:11)
[2019-06-14] MEDS: Ascorbic Acid 500mg tab NG SCH (09:11)
[2019-06-14] MEDS: Ferrous Sulfate 300 MG/5 ML UDC NG SCH (09:12)
[2019-06-14] MEDS: Docusate 100mg/10ml Liq NG SCH ×2 (09:12→20:25)
--- NOTE | 2019-06-14 09:33 | Diagnostic Imaging Report ---
EXAM: XR Chest, 1 View CLINICAL HISTORY: Pleural effusion TECHNIQUE: Frontal view of the chest. COMPARISON: Chest x-ray dated 06 13 19 FINDINGS: Lungs: Persistent consolidation in the lung bases, right greater than left, which represents atelectasis versus pneumonia. Persistent increased interstitial markings which may be related to pulmonary vascular congestion versus interstitial pneumonitis. Pleural space: Blunting of the costophrenic angles may suggest small effusions. No visible pneumothorax. Heart: Unremarkable. No cardiomegaly. Mediastinum: Unremarkable. Bones joints: Mild degenerative changes throughout the visualized spine. Tubes, lines and devices: Telemetry leads overlie the thorax. IMPRESSION: 1. No significant interval change from the prior chest x-ray. 2. Persistent consolidation in the lung bases, right greater than left, which may represent atelectasis versus pneumonia. 3. Persistent increased interstitial markings which may be related to pulmonary vascular congestion versus interstitial pneumonitis. 4. Possible tiny pleural effusions.
--- NOTE | 2019-06-14 10:25 | General Progress Note ---
Assessment/Plan Problem List: (1) CHF (congestive heart failure) ICD Codes: I50.9 - Heart failure, unspecified SNOMED: 41837471 (2) Iron deficiency anemia ICD Codes: D50.9 - Iron deficiency anemia, unspecified SNOMED: 81712764 (3) Severe sepsis ICD Codes: A41.9 - Sepsis, unspecified organism; R65.20 - Severe sepsis without septic shock SNOMED: 93408320 (4) Acute on chronic respiratory failure with hypoxia and hypercapnia ICD Codes: J96.21 - Acute and chronic respiratory failure with hypoxia; J96.22 - Acute and chronic respiratory failure with hypercapnia SNOMED: 25637393199159 (5) Acute and chronic respiratory failure with hypoxia ICD Codes: J96.21 - Acute and chronic respiratory failure with hypoxia SNOMED: 26962077, 825313342 (6) Pneumonia ICD Codes: J18.9 - Pneumonia, unspecified organism SNOMED: 082285475 (7) Hypothyroid ICD Codes: E03.9 - Hypothyroidism, unspecified SNOMED: 23997458 (8) HTN (hypertension) ICD Codes: I10 - Essential (primary) hypertension SNOMED: 67752894 (9) GERD (gastroesophageal reflux disease) ICD Codes: K21.9 - Gastro-esophageal reflux disease without esophagitis SNOMED: 523118194 (10) Aortic stenosis ICD Codes: I35.0 - Nonrheumatic aortic (valve) stenosis SNOMED: 53523385 (11) Fever ICD Codes: R50.9 - Fever, unspecified SNOMED: 185799312 (12) Down's syndrome ICD Codes: Q90.9 - Down syndrome, unspecified SNOMED: 06419347, 899024650 (13) Ulcer of right heel ICD Codes: L97.419 - Non-pressure chronic ulcer of right heel and midfoot with unspecified severity SNOMED: 125153784 Status: progressing, not improved, unchanged, deteriorating Assessment/Plan: Dwayne Gibson is a 54 yo man with PMH of Down's syndrome (nonverbal and bedbound at baseline), CHF (unknown EF), HTN, HLD, iron deficiency anemia, hypothyroid, GERD, with JANETTE 1 cm2, and bilateral foot pressure ulcers who presented from [facility] with fever, cough, and hypoxia, found with Tm 100.5, leukocytosis with left shift, and CXR suggestive of possible bilateral infiltrate, admitted for acute on chronic hypoxemic respiratory failure and sepsis 2/2 HCAP. #Acute on chronic hypoxemic/hypercapnic respiratory failure (baseline NC 2-4L) 2 /2 HCAP and right pleural effusion- minimal improvement. Improving. #Sepsis 2/2 HCAP -septic 06/09/19 (Heart rate, Temp 101.7) -resolved #Bilateral pleural effusions - stable > Tm 100.5 on admission, WBC 20.5 with bands, RR to 30s, tachycardic to 130s > Lactate 1.2 > ABG on admission 7.4/39/73/24 > BCX negative to date > F/U sputum CX > ESR 119, CRp 29, osteo of ulcer? > S/p IVF NS 30cc/kg sepsis bolus and gentle continuous D5NS IVF. HL IVF 06/05 given increased PVC on CXR and worsening respiratory failure. > Venous duplex negative for DVT > CXR 06/01/19 with worsening right sided pleural effusion, 06/06 CXR with mild improvement noted and reviewed, 06/10, unchanged, 06/11 unchanged > CT chest performed showing bilateral pneumonia and moderate pleural effusions >sputum culture: normal shoshana, though after antibiotics initiated > UA not overtly suggestive of UTI > Ct chest noncontrast showing bilateral pleural effusions -Discontinue zosyn 4.5gm IV q6hrs (05/30- 06/09) - stop vancomycin per ID recs, however been restarted by ID. Will clarify with ID - stopped amikacin per infectious disease (06/09 - 06/13 ) -Continue meropenem -f/u cxr - Continue diflucan per ID (06/09 - ) - follow up repeat blood and sputum cultures 06/09 - Wean oxygen to keep O2 sat >/=92%. Continues intermittent BiPAP and nonrebreather - Pulm/crit care consulted, appreciate recs. Nebs scheduled q4hrs with suction q4hrs. - OK for transfer to subacute when stable - Infectious disease consulted Dr. Serrano. Appreciate recommendations - Appreciate general surgery recommendations: Dr. Ruffin - Tylenol 650mg PO q6hrs PRN pain or fever - Duonebs - follow up legionella, urine (sent 06/11/19) #Dysphasia #Goals of care > Patient removed NG tube overnight (06/11/19) Supportive ST care and trials as he used to be able to eat 100 % with assistance at SNF -Appreciate ST recommendations - video swallow on 06/11/19 - failed -Previous extensive discussion with medical decision-maker Mr. Sheriff, regarding reversal of CODE STATUS to full code for procedure. Mr. Sheriff was okay with a temporary reversal. Also discussed the option of hospice given that the patient has had recurrent hospitalizations for the same problem ( aspiration pneumonia) over the past couple years. Mr. Sheriff would still like to proceed with the PEG. PEG placed 06/12 -Will reverse CODE STATUS to DNR DNI after procedure -continue PEG feeds #skin breakdown around nares bilaterally from patient movement of HFNC - improving -Discontinue high flow nasal cannula -Can cautiously restart nasal cannula. No signs of ulcer. Patient will not keep on the facemask so need to try a nasal cannula - wound care consult #hx HTN but now requiring PRN midodrine at SNF for intermittent hypotension #hx HFpEF (LVEF 55%), with most recent TTE on 05/29/19 showing EF 40-45% #hx #hx HLD - EKG with sinus tachycardia, TWI in lateral leads (no prior in chart for comparison). Troponin negative on admission. Low suspicion for acute ACS - Continue home midodrine 5mg PO TID PRN SBP<90 - Can resume home statin once able to tolerate PO - holding CLARICE-I, Beta Sadiq given intermittent hypotension - Appreciate cardiology recommendations: Dr. Owen - consider spot lasix dose if fluid overload is noted. ( done 06/05 ). Pro-BNP downtrending. #Metabolic Encephalopathy in setting of sepsis and underlying Down's syndrome - appears to be back to baseline - Baseline nonverbal and bedbound - Limit sedating medications as able #Mild transaminitis - resolved #Hepatitis B surface antigen positive. Appears to have acute hepatitis B infection > Ultrasound unremarkable > Hepatitis IgM core ab positive, surface Ab negative, BE ab positive - AST 38 and ALT 100 on admission, -Check further hepatitis B serologies, f/u hepatitis B DNA -Will need outpatient hepatotology follow up #Chronic hyponatremia - improving - Na 134 on admission, now 136 - Per records from SNF, Na was 132 on 05/05/19 - Monitor BMP #hx Hypothyroid - TSH 3.7 -Levothyroxine 25 mg IV daily. Will switch to p.o. once patient able to tolerate #hx GERD - Pepcid for home omeprazole #hx iron deficiency anemia - H/H stable - Continue home ferrous sulfate 325mg PO daily #Right heel wound - Present on admission - Appreciate wound care/surgery consult - Wound care as per recs # Thrombocytosis with platelets of 541,000 most likely reactive. - Monitor #hypokalemia - replete as needed FEN IVF: none DVT ppx: Heparin subq GI ppx: Pepcid Code Status: DNR/DNI with limited interventions, no PEG Diet: Tube feedings, Bolus since 06/08/19 Dispo: SUBACUTE for intermittent BiPAP after PEG Reason for continued hospitalization: Acute hypoxic respiratory failure, dysphagia 36 minutes spent on this encounter. Discussed with RN. > 50% spent on counseling and care coordination. Additional 31 minutes spent on chart review Time of note may not reflect time patient was seen. Subjective Date patient seen: Jun 14, 2019 ROS Limited/Unobtainable: Yes Allergies: Coded Allergies: KETAMINE (Verified Allergy, Unknown, 05/29/19) NSAIDS (NON-STEROIDAL ANTI-INFLAMMA (Verified Allergy, Unknown, 05/29/19) Subjective seen. non verbal s/p PEG 06/12, tolerating feeds clinically improved. off bipap,, now on venti mask Objective Last 24 Hour Vital Signs Date Time Temp Pulse Resp B/P (MAP) Pulse Ox O2 Delivery O2 Flow Rate FiO2 06/14/19 08:34 96 Nasal Cannula 4.0 36 06/14/19 08:33 Nasal Cannula 4.0 36 06/14/19 08:00 98.2 99 25 94/47 (63) 97 06/14/19 08:00 88 06/14/19 05:18 88 22 98 Facial 35 06/14/19 04:00 98.2 81 22 111/53 (72) 98 06/14/19 04:00 Bi-pap 06/14/19 04:00 81 06/14/19 03:32 83 19 97 Bi-Pap 35 06/14/19 03:17 83 16 96 Bi-Pap 35 06/14/19 03:16 83 16 96 Facial 35 06/14/19 01:12 83 26 96 Facial 35 06/14/19 00:00 111 06/14/19 00:00 Bi-pap 06/14/19 00:00 99.5 95 20 90/49 (63) 99 06/13/19 23:27 109 25 98 Bi-Pap 35 06/13/19 23:27 107 26 98 Facial 35 06/13/19 23:12 97 20 97 Nasal Cannula 4.0 36 06/13/19 22:00 5.0 06/13/19 21:40 100.2 06/13/19 20:00 101.1 110 21 119/57 (77) 98 06/13/19 20:00 Nasal Cannula 5.0 06/13/19 20:00 112 06/13/19 19:52 116 20 98 Nasal Cannula 4.0 36 06/13/19 19:37 110 20 95 Nasal Cannula 4.0 36 06/13/19 19:36 95 Nasal Cannula 4.0 36 06/13/19 16:00 100.0 106 23 100/44 (62) 93 06/13/19 16:00 118 06/13/19 16:00 83 06/13/19 16:00 Nasal Cannula 5.0 06/13/19 15:25 87 20 98 Bi-Pap 50 79 20 96 06/13/19 12:00 Nasal Cannula 5.0 06/13/19 12:00 98.9 101 23 106/56 (73) 93 06/13/19 12:00 99 Intake and Output 06/13/19 06/14/19 19:00 07:00 Intake Total 690 ml 1080 ml Output Total 950 ml 400 ml Balance -260 ml 680 ml Free Water 200 ml 250 ml IV Total 310 ml Tube Feeding 430 ml 520 ml Other 60 ml Output Urine Total 950 ml 400 ml Laboratory Tests 06/13/19 23:53: Urine Color Pale yellow, Urine Appearance Clear, Urine pH 8, Urine Specific [place] 1.010, Urine Protein 2+H, Urine Glucose (UA) Negative, Urine Ketones 2+H , Urine Blood 2+H, Urine Nitrite Negative, Urine Bilirubin Negative, Urine Urobilinogen Normal, Urine Leukocyte Esterase Negative, Urine RBC 2-4H, Urine WBC 0-2, Urine Squamous Epithelial Cells Few, Urine Amorphous Sediment FewH, Urine Bacteria Few, Urine Mucus FewH 06/14/19 03:10: White Blood Count 10.7, Red Blood Count 3.88L, Hemoglobin 12.3L, Hematocrit 36.5L, Mean Corpuscular Volume 94, Mean Corpuscular Hemoglobin 31.6H, Mean Corpuscular Hemoglobin Concent 33.6, Red Cell Distribution Width 12.0, Platelet Count 397, Mean Platelet Volume 6.2L, Neutrophils (%) (Auto) 66.7, Lymphocytes ( %) (Auto) 23.9, Monocytes (%) (Auto) 6.8, Eosinophils (%) (Auto) 0.8, Basophils (%) (Auto) 1.8, Sodium Level 137, Potassium Level 3.1L, Chloride Level 98, Carbon Dioxide Level 27, Anion Gap 12, Blood Urea Nitrogen 12, Creatinine 1.1, Estimat Glomerular Filtration Rate > 60, Glucose Level 101, Calcium Level 9.4, Total Bilirubin 0.4, Aspartate Amino Transf (AST/SGOT) 40H, Alanine Aminotransferase (ALT/SGPT) 72, Alkaline Phosphatase 70, Total Protein 7.9, Albumin 2.3L, Globulin 5.6, Albumin/Globulin Ratio 0.4L Height (Feet): 5 Height (Inches): 1.00 Weight (Pounds): 124 Objective General Appearance: WD/WN, no apparent distress, alert EENT: PERRL/EOMI, other - Nares with slight irritation but much improved. No bleeding noticed. Neck: non-tender, normal alignment, supple Cardiovascular: normal peripheral pulses, normal rate, regular rhythm, no JVD Respiratory/Chest: chest wall non-tender, other - Coarse breath sounds bilaterally. Abdomen: normal bowel sounds, non tender, soft, no organomegaly, +peg, site c/d /i Extremities: other - No lower extremity edema bilaterally. 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 Jun 14, 2019 10:25
--- NOTE | 2019-06-14 11:14 | General Progress Note ---
Assessment/Plan Problem List: (1) Acute and chronic respiratory failure with hypoxia ICD Codes: J96.21 - Acute and chronic respiratory failure with hypoxia SNOMED: 04500703, 875042861 (2) Pneumonia ICD Codes: J18.9 - Pneumonia, unspecified organism SNOMED: 265955140 (3) HTN (hypertension) ICD Codes: I10 - Essential (primary) hypertension SNOMED: 67306159 (4) GERD (gastroesophageal reflux disease) ICD Codes: K21.9 - Gastro-esophageal reflux disease without esophagitis SNOMED: 879957790 (5) Iron deficiency anemia ICD Codes: D50.9 - Iron deficiency anemia, unspecified SNOMED: 18443559 (6) Down's syndrome ICD Codes: Q90.9 - Down syndrome, unspecified SNOMED: 74869373, 815491663 (7) Aortic stenosis ICD Codes: I35.0 - Nonrheumatic aortic (valve) stenosis SNOMED: 52148172 Status: progressing, not improved, unchanged, deteriorating Assessment/Plan: s/p PEG placement GTF fu labs abx pulm care Subjective ROS Limited/Unobtainable: No Allergies: Coded Allergies: KETAMINE (Verified Allergy, Unknown, 05/29/19) NSAIDS (NON-STEROIDAL ANTI-INFLAMMA (Verified Allergy, Unknown, 05/29/19) Objective Last 24 Hour Vital Signs Date Time Temp Pulse Resp B/P (MAP) Pulse Ox O2 Delivery O2 Flow Rate FiO2 06/14/19 08:34 96 Nasal Cannula 4.0 36 06/14/19 08:33 Nasal Cannula 4.0 36 06/14/19 08:00 98.2 99 25 94/47 (63) 97 06/14/19 08:00 Nasal Cannula 5.0 06/14/19 08:00 88 06/14/19 05:18 88 22 98 Facial 35 06/14/19 04:00 98.2 81 22 111/53 (72) 98 06/14/19 04:00 Bi-pap 06/14/19 04:00 81 06/14/19 03:32 83 19 97 Bi-Pap 35 06/14/19 03:17 83 16 96 Bi-Pap 35 06/14/19 03:16 83 16 96 Facial 35 06/14/19 01:12 83 26 96 Facial 35 06/14/19 00:00 111 06/14/19 00:00 Bi-pap 06/14/19 00:00 99.5 95 20 90/49 (63) 99 06/13/19 23:27 109 25 98 Bi-Pap 35 06/13/19 23:27 107 26 98 Facial 35 06/13/19 23:12 97 20 97 Nasal Cannula 4.0 36 06/13/19 22:00 5.0 06/13/19 21:40 100.2 06/13/19 20:00 101.1 110 21 119/57 (77) 98 06/13/19 20:00 Nasal Cannula 5.0 06/13/19 20:00 112 06/13/19 19:52 116 20 98 Nasal Cannula 4.0 36 06/13/19 19:37 110 20 95 Nasal Cannula 4.0 36 06/13/19 19:36 95 Nasal Cannula 4.0 36 06/13/19 16:00 100.0 106 23 100/44 (62) 93 06/13/19 16:00 118 06/13/19 16:00 83 06/13/19 16:00 Nasal Cannula 5.0 06/13/19 15:25 87 20 98 Bi-Pap 50 79 20 96 06/13/19 12:00 Nasal Cannula 5.0 06/13/19 12:00 98.9 101 23 106/56 (73) 93 06/13/19 12:00 99 Intake and Output 06/13/19 06/14/19 19:00 07:00 Intake Total 690 ml 1080 ml Output Total 950 ml 400 ml Balance -260 ml 680 ml Free Water 200 ml 250 ml IV Total 310 ml Tube Feeding 430 ml 520 ml Other 60 ml Output Urine Total 950 ml 400 ml Laboratory Tests 06/13/19 23:53: Urine Color Pale yellow, Urine Appearance Clear, Urine pH 8, Urine Specific [place] 1.010, Urine Protein 2+H, Urine Glucose (UA) Negative, Urine Ketones 2+H , Urine Blood 2+H, Urine Nitrite Negative, Urine Bilirubin Negative, Urine Urobilinogen Normal, Urine Leukocyte Esterase Negative, Urine RBC 2-4H, Urine WBC 0-2, Urine Squamous Epithelial Cells Few, Urine Amorphous Sediment FewH, Urine Bacteria Few, Urine Mucus FewH 06/14/19 03:10: White Blood Count 10.7, Red Blood Count 3.88L, Hemoglobin 12.3L, Hematocrit 36.5L, Mean Corpuscular Volume 94, Mean Corpuscular Hemoglobin 31.6H, Mean Corpuscular Hemoglobin Concent 33.6, Red Cell Distribution Width 12.0, Platelet Count 397, Mean Platelet Volume 6.2L, Neutrophils (%) (Auto) 66.7, Lymphocytes ( %) (Auto) 23.9, Monocytes (%) (Auto) 6.8, Eosinophils (%) (Auto) 0.8, Basophils (%) (Auto) 1.8, Sodium Level 137, Potassium Level 3.1L, Chloride Level 98, Carbon Dioxide Level 27, Anion Gap 12, Blood Urea Nitrogen 12, Creatinine 1.1, Estimat Glomerular Filtration Rate > 60, Glucose Level 101, Calcium Level 9.4, Total Bilirubin 0.4, Aspartate Amino Transf (AST/SGOT) 40H, Alanine Aminotransferase (ALT/SGPT) 72, Alkaline Phosphatase 70, Total Protein 7.9, Albumin 2.3L, Globulin 5.6, Albumin/Globulin Ratio 0.4L Height (Feet): 5 Height (Inches): 1.00 Weight (Pounds): 124 General Appearance: no apparent distress EENT: normal ENT inspection Neck: supple Cardiovascular: normal rate Respiratory/Chest: decreased breath sounds Abdomen: normal bowel sounds, non tender, soft Extremities: non-tender Lewis Rubio MD Jun 14, 2019 11:14
[2019-06-14] MEDS: Vancomycin 500mg/D5W 110ml IVPB SCH ×4 (11:30→23:46)
[2019-06-14 12:00] VITALS: BP 103/48
--- NOTE | 2019-06-14 12:40 | Surgery Progress Note ---
Surgery Progress Note Subjective Additional Comments No acute events. Afebrile, hemodynamic stable. Labs reviewed. Improving Objective Last 24 Hour Vital Signs Date Time Temp Pulse Resp B/P (MAP) Pulse Ox O2 Delivery O2 Flow Rate FiO2 06/14/19 12:00 Nasal Cannula 5.0 06/14/19 12:00 99.0 108 24 103/48 (66) 93 06/14/19 11:20 90 20 98 Nasal Cannula 4.0 36 89 22 95 06/14/19 08:34 96 Nasal Cannula 4.0 36 06/14/19 08:33 Nasal Cannula 4.0 36 06/14/19 08:00 98.2 99 25 94/47 (63) 97 06/14/19 08:00 Nasal Cannula 5.0 06/14/19 08:00 88 06/14/19 05:18 88 22 98 Facial 35 06/14/19 04:00 98.2 81 22 111/53 (72) 98 06/14/19 04:00 Bi-pap 06/14/19 04:00 81 06/14/19 03:32 83 19 97 Bi-Pap 35 06/14/19 03:17 83 16 96 Bi-Pap 35 06/14/19 03:16 83 16 96 Facial 35 06/14/19 01:12 83 26 96 Facial 35 06/14/19 00:00 111 06/14/19 00:00 Bi-pap 06/14/19 00:00 99.5 95 20 90/49 (63) 99 06/13/19 23:27 109 25 98 Bi-Pap 35 06/13/19 23:27 107 26 98 Facial 35 06/13/19 23:12 97 20 97 Nasal Cannula 4.0 36 06/13/19 22:00 5.0 06/13/19 21:40 100.2 06/13/19 20:00 101.1 110 21 119/57 (77) 98 06/13/19 20:00 Nasal Cannula 5.0 06/13/19 20:00 112 06/13/19 19:52 116 20 98 Nasal Cannula 4.0 36 06/13/19 19:37 110 20 95 Nasal Cannula 4.0 36 06/13/19 19:36 95 Nasal Cannula 4.0 36 06/13/19 16:00 100.0 106 23 100/44 (62) 93 06/13/19 16:00 118 06/13/19 16:00 83 06/13/19 16:00 Nasal Cannula 5.0 06/13/19 15:25 87 20 98 Bi-Pap 50 79 20 96 I&O Intake and Output 06/13/19 06/14/19 19:00 07:00 Intake Total 690 ml 1080 ml Output Total 950 ml 400 ml Balance -260 ml 680 ml Free Water 200 ml 250 ml IV Total 310 ml Tube Feeding 430 ml 520 ml Other 60 ml Output Urine Total 950 ml 400 ml Dressing: saturated Wound: other Drains: other Cardiovascular: RSR Respiratory: decreased breath sounds Abdomen: soft, non-tender, present bowel sounds Extremities: no cyanosis, other Laboratory Tests Test 06/13/19 23:53 06/14/19 03:10 Urine Color Pale yellow Urine Appearance Clear Urine pH 8 (4.5-8.0) Urine Specific [place] 1.010 (1.005-1.035) Urine Protein 2+ (NEGATIVE) H Urine Glucose (UA) Negative (NEGATIVE) Urine Ketones 2+ (NEGATIVE) H Urine Blood 2+ (NEGATIVE) H Urine Nitrite Negative (NEGATIVE) Urine Bilirubin Negative (NEGATIVE) Urine Urobilinogen Normal MG/DL (0.0-1.0) Urine Leukocyte Esterase Negative (NEGATIVE) Urine RBC 2-4 /HPF (0 - 0) H Urine WBC 0-2 /HPF (0 - 0) Urine Squamous Epithelial Cells Few /LPF (NONE/OCC) Urine Amorphous Sediment Few /LPF (NONE) H Urine Bacteria Few /HPF (NONE) Urine Mucus Few /LPF (NONE/OCC) H White Blood Count 10.7 K/UL (4.8-10.8) Red Blood Count 3.88 M/UL (4.70-6.10) L Hemoglobin 12.3 G/DL (14.2-18.0) L Hematocrit 36.5 % (42.0-52.0) L Mean Corpuscular Volume 94 FL (80-99) Mean Corpuscular Hemoglobin 31.6 PG (27.0-31.0) H Mean Corpuscular Hemoglobin Concent 33.6 G/DL (32.0-36.0) Red Cell Distribution Width 12.0 % (11.6-14.8) Platelet Count 397 K/UL (150-450) Mean Platelet Volume 6.2 FL (6.5-10.1) L Neutrophils (%) (Auto) 66.7 % (45.0-75.0) Lymphocytes (%) (Auto) 23.9 % (20.0-45.0) Monocytes (%) (Auto) 6.8 % (1.0-10.0) Eosinophils (%) (Auto) 0.8 % (0.0-3.0) Basophils (%) (Auto) 1.8 % (0.0-2.0) Sodium Level 137 MMOL/L (136-145) Potassium Level 3.1 MMOL/L (3.5-5.1) L Chloride Level 98 MMOL/L (98-107) Carbon Dioxide Level 27 MMOL/L (21-32) Anion Gap 12 mmol/L (5-15) Blood Urea Nitrogen 12 mg/dL (7-18) Creatinine 1.1 MG/DL (0.55-1.30) Estimat Glomerular Filtration Rate > 60 mL/min (>60) Glucose Level 101 MG/DL (74-106) Calcium Level 9.4 MG/DL (8.5-10.1) Total Bilirubin 0.4 MG/DL (0.2-1.0) Aspartate Amino Transf (AST/SGOT) 40 U/L (15-37) H Alanine Aminotransferase (ALT/SGPT) 72 U/L (12-78) Alkaline Phosphatase 70 U/L (46-116) Total Protein 7.9 G/DL (6.4-8.2) Albumin 2.3 G/DL (3.4-5.0) L Globulin 5.6 g/dL Albumin/Globulin Ratio 0.4 (1.0-2.7) L Plan Problems: (1) Ulcer of right heel Assessment & Plan: This is a 54-year-old male with multiple medical comorbidities who is currently presented for fever and tachycardia. Patient identified to have abnormal decubitus pressure ulcer on right heel. On examination patient has a stage III full-thickness right heel decubitus ulcer periwound intact but mildly macerated. Surrounding erythema. No drainage. No underlying abscess. No bone palpable. No foul odor. Labs noted and identified. No signs of acute active inflammatory or infectious process from this. Patient does have a leukocytosis that significant. Will continue work-up for etiology Will recommend local wound care. Apply Thera honey followed by up to foam dressing daily. We will monitor. Thank you for this consultation we will follow with recommendations d/c planning (2) Fever Assessment & Plan: Low-grade fevers, tachycardia, leukocytosis, abnormal labs Head to toe skin integrity and wound eval completed as above UA noted chest x-ray noted aspiration pneumonia Continue antibiotics as per infectious disease PEG tube Continue with feeds as tolerated IV fluids. (3) Tachycardia (4) Severe sepsis Assessment & Plan: DAILY ESTIMATED NEEDS: Needs based on wound, wasting, pulmonary/ 46kg 30-35 kcals/kg 4651-9066 total kcals 1.3-1.8 g protein/kg 60-83 g total protein 25-30 mL/kg 2618-0544 total fluid mLs NUTRITION DIAGNOSIS: * Swallowing difficulty R/T dysphagia, respiratory status as evidenced by h/o Down's syndrome, on BIPAP qhs, now s/p PEG placement, NPO at this time. * Increased kcal/prot needs R/T wound healing and wasting as evidenced by pt admitted w/ stage 3 rt heel wound, w/ mild-moderate generalized wasting. CURRENT TF:NPO ENTERAL NUTRITION RECOMMENDATIONS: Jevity 1.2 @ 50ml/hr x 24 hrs to provide 1200ml, 1440kcal, 66g prot, 968ml free water * When medically appropriate, initiate Jevity 1.2 @ 20ml/hr x 6 hrs. * Advance 10ml q 4-6 hrs as tolerated to goal rate. * HOB over 30 degrees * Water flush of 100ml q 8 hrs ADDITIONAL RECOMMENDATIONS: * Calibrated bedscale wt - bedscale wt per RD= 101lbs vs EMR wi=[id number] * Monitor lytes, replete as needed * Wound healing: continue MVI, Vit C 500mg QD, and ZnSO4 : add Jeremy 1pkt BID * Monitor TF tolerance: s/p PEG placement on 06/12 Alexis Ruffin Jun 14, 2019 12:40
[2019-06-14] MEDS ORDERED: NS 275ml ONE (13:30)
[2019-06-14] MEDS ORDERED: Tubing IV Secondary IV ONE ×2 (13:30→16:21)
--- NOTE | 2019-06-14 13:56 | Pulmonology Progress Note ---
Assessment/Plan Assessment/Plan Pulmonary Progress Note Assessment/Plan Problems: (1) Pneumonia (2) Acute and chronic respiratory failure with hypoxia (3) Severe sepsis (4) Fever (5) Down's syndrome (6) Tachycardia (7) Hypothyroid (8) HLD (hyperlipidemia) (9) HTN (hypertension) (10) GERD (gastroesophageal reflux disease) (11) Iron deficiency anemia (12) CHF (congestive heart failure) Assessment/Plan Problem List: 1. HCAP/BLL PNA, likely aspiration 2. Hypercapnic hypoxemic respiratory failure, prn BiPAP 3. Down syndrome. 4. Small/mod b effusions 5. HTN & Hyperlipidemia 6. Gastroesophageal reflux disease. 7. Decubitus ulcers. Plan: -NGTF's only when stable off BiPAP -BiPAP 12/5 qhs and prn -Titrate NRBFM -cont abx per ID -monitor effusions -SHACTOR recs, VSS, GT not within GOC -DNAR/DNI -Consider palliative care eval -Dispo planning to SUBACUTE or LTACH Case d/w RN Subjective Allergies: Coded Allergies: KETAMINE (Verified Allergy, Unknown, 05/29/19) NSAIDS (NON-STEROIDAL ANTI-INFLAMMA (Verified Allergy, Unknown, 05/29/19) Subjective AFVSS CXR unchanged Objective Vital Signs Noted General Appearance: no acute distress, cachetic HEENT: normocephalic, atraumatic, other - on BiPAP Respiratory/Chest: rhonchi Cardiovascular: normal peripheral pulses, normal rate, regular rhythm Abdomen: normal bowel sounds, soft, non tender, no organomegaly, non distended , no mass Extremities: no cyanosis, no clubbing, no edema Laboratory Tests Noted CXR: 1. No significant interval change from the prior chest x-ray. 2. Persistent consolidation in the lung bases, right greater than left, which may represent atelectasis versus pneumonia. 3. Persistent increased interstitial markings which may be related to pulmonary vascular congestion versus interstitial pneumonitis. 4. Possible tiny pleural effusions. Subjective ROS Limited/Unobtainable: No Allergies: Coded Allergies: KETAMINE (Verified Allergy, Unknown, 05/29/19) NSAIDS (NON-STEROIDAL ANTI-INFLAMMA (Verified Allergy, Unknown, 05/29/19) Objective Last 24 Hour Vital Signs Date Time Temp Pulse Resp B/P (MAP) Pulse Ox O2 Delivery O2 Flow Rate FiO2 10/27/19 12:00 82 06/14/19 12:00 Nasal Cannula 5.0 06/14/19 12:00 99.0 108 24 103/48 (66) 93 06/14/19 11:20 90 20 98 Nasal Cannula 4.0 36 89 22 95 06/14/19 08:34 96 Nasal Cannula 4.0 36 06/14/19 08:33 Nasal Cannula 4.0 36 06/14/19 08:00 98.2 99 25 94/47 (63) 97 06/14/19 08:00 Nasal Cannula 5.0 06/14/19 08:00 88 06/14/19 05:18 88 22 98 Facial 35 06/14/19 04:00 98.2 81 22 111/53 (72) 98 06/14/19 04:00 Bi-pap 06/14/19 04:00 81 06/14/19 03:32 83 19 97 Bi-Pap 35 06/14/19 03:17 83 16 96 Bi-Pap 35 06/14/19 03:16 83 16 96 Facial 35 06/14/19 01:12 83 26 96 Facial 35 06/14/19 00:00 111 06/14/19 00:00 Bi-pap 06/14/19 00:00 99.5 95 20 90/49 (63) 99 06/13/19 23:27 109 25 98 Bi-Pap 35 06/13/19 23:27 107 26 98 Facial 35 06/13/19 23:12 97 20 97 Nasal Cannula 4.0 36 06/13/19 22:00 5.0 06/13/19 21:40 100.2 06/13/19 20:00 101.1 110 21 119/57 (77) 98 06/13/19 20:00 Nasal Cannula 5.0 06/13/19 20:00 112 06/13/19 19:52 116 20 98 Nasal Cannula 4.0 36 06/13/19 19:37 110 20 95 Nasal Cannula 4.0 36 06/13/19 19:36 95 Nasal Cannula 4.0 36 06/13/19 16:00 100.0 106 23 100/44 (62) 93 06/13/19 16:00 118 06/13/19 16:00 83 06/13/19 16:00 Nasal Cannula 5.0 06/13/19 15:25 87 20 98 Bi-Pap 50 79 20 96 Intake and Output 06/13/19 06/14/19 18:59 06:59 Intake Total 650 ml 1120 ml Output Total 950 ml 400 ml Balance -300 ml 720 ml Free Water 200 ml 250 ml IV Total 310 ml Tube Feeding 390 ml 560 ml Other 60 ml Output Urine Total 950 ml 400 ml Microbiology Date/Time Source Procedure Growth Status 06/12/19 04:15 Sputum Expectorated Gram Stain - Final Resulted 06/12/19 04:15 Sputum Expectorated Sputum Culture Pending Resulted Laboratory Tests 06/13/19 23:53: Urine Color Pale yellow, Urine Appearance Clear, Urine pH 8, Urine Specific [place] 1.010, Urine Protein 2+H, Urine Glucose (UA) Negative, Urine Ketones 2+H , Urine Blood 2+H, Urine Nitrite Negative, Urine Bilirubin Negative, Urine Urobilinogen Normal, Urine Leukocyte Esterase Negative, Urine RBC 2-4H, Urine WBC 0-2, Urine Squamous Epithelial Cells Few, Urine Amorphous Sediment FewH, Urine Bacteria Few, Urine Mucus FewH 06/14/19 03:10: White Blood Count 10.7, Red Blood Count 3.88L, Hemoglobin 12.3L, Hematocrit 36.5L, Mean Corpuscular Volume 94, Mean Corpuscular Hemoglobin 31.6H, Mean Corpuscular Hemoglobin Concent 33.6, Red Cell Distribution Width 12.0, Platelet Count 397, Mean Platelet Volume 6.2L, Neutrophils (%) (Auto) 66.7, Lymphocytes ( %) (Auto) 23.9, Monocytes (%) (Auto) 6.8, Eosinophils (%) (Auto) 0.8, Basophils (%) (Auto) 1.8, Sodium Level 137, Potassium Level 3.1L, Chloride Level 98, Carbon Dioxide Level 27, Anion Gap 12, Blood Urea Nitrogen 12, Creatinine 1.1, Estimat Glomerular Filtration Rate > 60, Glucose Level 101, Calcium Level 9.4, Total Bilirubin 0.4, Aspartate Amino Transf (AST/SGOT) 40H, Alanine Aminotransferase (ALT/SGPT) 72, Alkaline Phosphatase 70, Total Protein 7.9, Albumin 2.3L, Globulin 5.6, Albumin/Globulin Ratio 0.4L Current Medications Medications (Trade) Dose Ordered Sig/Kendra Route PRN Reason Start Time Stop Time Status Last Admin Dose Admin Acetaminophen (Tylenol) 650 mg Q6H PRN RECTAL Mild Pain (Pain Scale 1-3) 05/31/19 01:15 06/30/19 01:14 06/13/19 21:10 Acetylcysteine (Mucomyst) 100 mg Q4HRT N 05/31/19 17:00 06/30/19 16:59 06/14/19 11:21 Albuterol/ Ipratropium (Albuterol/ Ipratropium) 3 ml Q4HRT N 06/13/19 15:00 06/18/19 14:59 06/14/19 11:21 Ascorbic Acid (Vitamin C) 500 mg DAILY NG 06/06/19 09:00 07/02/19 08:59 06/14/19 09:11 Azithromycin (Zithromax) 500 mg Q24HRS GT 06/13/19 23:00 06/20/19 22:59 06/13/19 22:21 Bisacodyl (Dulcolax) 10 mg DAILYPRN PRN RECTAL constipation 05/31/19 10:45 06/29/19 10:44 Cyanocobalamin (Vitamin B-12 Tab) 100 mcg DAILY NG 06/05/19 09:00 06/30/19 08:59 06/14/19 09:10 Docusate Sodium (Colace) 100 mg EVERY 12 HOURS NG 06/05/19 21:00 07/05/19 20:59 06/14/19 09:12 Famotidine (Pepcid I.v.) 20 mg Q12HR IVP 05/31/19 09:00 06/30/19 08:59 06/14/19 09:11 Ferrous Sulfate (Feosol) 325 mg DAILY NG 06/05/19 09:00 07/05/19 08:59 06/14/19 09:12 Fluconazole/ Sodium Chloride 200 ml @ 200 mls/hr Q24H IV 06/09/19 18:00 06/16/19 17:59 06/13/19 18:04 Heparin Sodium (Porcine) (Heparin 5000 units/ml) 5,000 units EVERY 12 HOURS SUBQ 05/31/19 09:00 06/29/19 08:59 06/14/19 09:10 Levothyroxine Sodium (Synthroid) 25 mcg DAILY IV 06/04/19 10:30 07/04/19 10:29 06/14/19 09:12 Lorazepam (Ativan 2mg/ml 1ml) 1 mg Q6H PRN IV Agitation 06/11/19 20:30 06/18/19 20:29 Meropenem 1 gm/ Sodium Chloride 100 ml @ 200 mls/hr Q8HR IVPB 06/13/19 14:00 06/18/19 13:59 06/14/19 13:52 Midodrine (Pro-Amatine) 5 mg TIDPRN PRN NG SBP<90 06/05/19 15:00 06/29/19 12:59 06/14/19 00:41 Morphine Sulfate (Morphine Sulfate) 2 mg Q4H PRN IVP For Pain 06/11/19 20:34 06/18/19 20:33 06/11/19 21:00 Multivitamins (Multivitamins) 1 tab DAILY NG 06/05/19 09:00 07/02/19 08:59 06/14/19 09:10 Vancomycin HCl (Vanco rx to dose) 1 ea DAILY PRN MISC Per rx protocol 06/13/19 22:00 07/13/19 21:59 Vancomycin HCl 500 mg/Dextrose 110 ml @ 110 mls/hr Q12H IVPB 06/13/19 23:00 06/18/19 22:59 06/14/19 11:30 Zinc Sulfate (Zinc Sulfate) 220 mg DAILY NG 06/05/19 09:00 06/15/19 08:59 06/14/19 09:11 Dwayne Barrientos MD Jun 14, 2019 13:56
[2019-06-14 16:00] VITALS: BP 116/61
[2019-06-14] MEDS: Acetaminophen 650 MG SUPP RECTAL PRN (19:13)
[2019-06-14 20:00] VITALS: BP 102/44
[2019-06-14] MEDS: Azithromycin 250mg tab GT SCH (22:38)
[2019-06-15] VITALS: BP 134/55
[2019-06-15] MEDS: Albuterol/Ipratropium 3ml neb HHN SCH ×6 (02:52→23:09)
[2019-06-15 04:00] VITALS: BP 117/68
[2019-06-15 05:38] LABS: BASOPHILS % (AUTO) 1.8 % (0.0-2.0); EOSINOPHILS % (AUTO) 1.8 % (0.0-3.0); HEMATOCRIT 31.3 % (42.0-52.0); HEMOGLOBIN 10.6 G/DL (14.2-18.0); LYMPHOCYTES % (AUTO) 25.2 % (20.0-45.0); MEAN CORPUSCULAR VOLUME 95 FL (80-99); MONOCYTES % (AUTO) 7.3 % (1.0-10.0); NEUTROPHILS % (AUTO) 63.9 % (45.0-75.0); PLATELET COUNT 372 K/UL (150-450); RED CELL DISTRIBUTION WIDTH 12.1 % (11.6-14.8); WHITE BLOOD COUNT 8.5 K/UL (4.8-10.8)
[2019-06-15 06:00] LABS: ANION GAP 6 mmol/L (5-15); BLOOD UREA NITROGEN 15 mg/dL (7-18); CALCIUM 8.6 MG/DL (8.5-10.1); CARBON DIOXIDE 26 MMOL/L (21-32); CHLORIDE 104 MMOL/L (98-107); CREATININE 0.9 MG/DL (0.55-1.30); POTASSIUM 3.8 MMOL/L (3.5-5.1); SODIUM 136 MMOL/L (136-145)
[2019-06-15] MEDS ORDERED: Acetaminophen 650 MG SUPP RECTAL PRN (06:30)
[2019-06-15] MEDS ORDERED: Morphine Sulfate 2mg/ml Inj(IV/IM USE ONLY) IVP PRN (06:30)
[2019-06-15] MEDS ORDERED: LORazepam Inj 2mg/ml 1ml IV PRN (06:45)
[2019-06-15 08:00] VITALS: BP 128/82
[2019-06-15] MEDS: Ascorbic Acid 500mg tab NG SCH (08:42)
[2019-06-15] MEDS: Zinc Sulfate 220mg cap NG SCH (08:42)
[2019-06-15] MEDS: Vitamin B-12 100mcg tab NG SCH (08:42)
[2019-06-15] MEDS: Ferrous Sulfate 300 MG/5 ML UDC NG SCH (08:43)
[2019-06-15] MEDS: Docusate 100mg/10ml Liq NG SCH ×2 (08:43→20:33)
[2019-06-15] MEDS: Heparin 5000 units/ml inj SUBQ SCH ×2 (08:45→20:47)
[2019-06-15] MEDS ORDERED: Vancomycin 500 MG in D5W 110 ML IVPB SCH (11:00)
[2019-06-15 12:00] VITALS: BP 127/77
--- NOTE | 2019-06-15 13:29 | GI Progress Note ---
Assessment/Plan Problems: (1) Iron deficiency anemia ICD Codes: D50.9 - Iron deficiency anemia, unspecified SNOMED: 52215533 (2) Down's syndrome ICD Codes: Q90.9 - Down syndrome, unspecified SNOMED: 41157687, 245941056 (3) GERD (gastroesophageal reflux disease) ICD Codes: K21.9 - Gastro-esophageal reflux disease without esophagitis SNOMED: 480346950 Status: stable Status Narrative Discussed with Dr. Rubio. Assessment/Plan s/p PEG placement GTF fu labs abx pulm care dc planning Subjective Subjective limited Objective Last 24 Hour Vital Signs Date Time Temp Pulse Resp B/P (MAP) Pulse Ox O2 Delivery O2 Flow Rate FiO2 06/15/19 12:00 98.4 81 19 127/77 (94) 98 06/15/19 11:48 92 18 95 Room Air 21 90 18 92 06/15/19 09:00 Nasal Cannula 5.0 06/15/19 08:00 98.3 78 20 128/82 (97) 97 06/15/19 07:51 93 18 96 Room Air 21 87 18 93 06/15/19 07:51 93 Room Air 21 06/15/19 05:24 85 19 100 Facial 35 06/15/19 04:00 97.5 99 20 117/68 (84) 98 06/15/19 04:00 Nasal Cannula 5.0 06/15/19 03:27 75 06/15/19 02:53 87 19 96 Facial 35 89 20 97 Bi-Pap 35 06/15/19 01:28 79 18 6 Facial 35 06/15/19 00:00 98.5 99 22 134/55 (81) 97 06/15/19 00:00 Nasal Cannula 5.0 06/14/19 23:26 93 06/14/19 23:00 104 18 96 Bi-Pap 35 101 18 96 06/14/19 23:00 97 33 97 Facial 35 06/14/19 22:00 5.0 06/14/19 20:00 Nasal Cannula 5.0 06/14/19 20:00 98.4 95 20 102/44 (63) 92 06/14/19 19:43 98.4 06/14/19 19:34 106 06/14/19 19:22 90 Nasal Cannula 4.0 36 10/27/19 19:21 106 18 95 Nasal Cannula 4.0 36 104 18 90 06/14/19 16:00 100.2 110 24 116/61 (79) 92 06/14/19 16:00 Nasal Cannula 5.0 06/14/19 16:00 92 06/14/19 15:59 84 22 99 Nasal Cannula 4.0 36 90 22 94 Intake and Output 06/14/19 06/15/19 19:00 07:00 Intake Total 870 ml 810 ml Output Total 750 ml Balance 120 ml 810 ml Free Water 150 ml IV Total 210 ml 210 ml Tube Feeding 600 ml 450 ml Other 60 ml Output Urine Total 750 ml Laboratory Tests Test 06/15/19 04:35 06/15/19 10:15 White Blood Count 8.5 K/UL (4.8-10.8) Red Blood Count 3.30 M/UL (4.70-6.10) L Hemoglobin 10.6 G/DL (14.2-18.0) L Hematocrit 31.3 % (42.0-52.0) L Mean Corpuscular Volume 95 FL (80-99) Mean Corpuscular Hemoglobin 32.0 PG (27.0-31.0) H Mean Corpuscular Hemoglobin Concent 33.8 G/DL (32.0-36.0) Red Cell Distribution Width 12.1 % (11.6-14.8) Platelet Count 372 K/UL (150-450) Mean Platelet Volume 6.1 FL (6.5-10.1) L Neutrophils (%) (Auto) 63.9 % (45.0-75.0) Lymphocytes (%) (Auto) 25.2 % (20.0-45.0) Monocytes (%) (Auto) 7.3 % (1.0-10.0) Eosinophils (%) (Auto) 1.8 % (0.0-3.0) Basophils (%) (Auto) 1.8 % (0.0-2.0) Sodium Level 136 MMOL/L (136-145) Potassium Level 3.8 MMOL/L (3.5-5.1) Chloride Level 104 MMOL/L (98-107) Carbon Dioxide Level 26 MMOL/L (21-32) Anion Gap 6 mmol/L (5-15) Blood Urea Nitrogen 15 mg/dL (7-18) Creatinine 0.9 MG/DL (0.55-1.30) Estimat Glomerular Filtration Rate > 60 mL/min (>60) Glucose Level 98 MG/DL (74-106) Calcium Level 8.6 MG/DL (8.5-10.1) Vancomycin Level Trough 21.6 ug/mL (5.0-12.0) H Height (Feet): 5 Height (Inches): 1.00 Weight (Pounds): 124 General Appearance: WD/WN, no apparent distress, alert Cardiovascular: normal rate Respiratory/Chest: normal breath sounds, no respiratory distress Abdominal Exam: normal bowel sounds, non tender, soft, GT site Extremities: non-tender Hector Harry NP Jun 15, 2019 13:29
--- NOTE | 2019-06-15 15:10 | Infectious Diseases Prog Note ---
Assessment/Plan Assessment/Plan ASSESSMENT AND PLAN: 1. mrsa pna, aspiration pna/HCAP, sepsis, leukocytosis, fevers, sirs, sob, bipap recurrent fevers - ? new nosocomial infection, fungemia risk - urine an sputum culture with yeast suggestive of potential fungemia - meropenem x 3 days - vancomycin and diflucan x 5 days more - f/u on labs and chest x-ray - clinically improved, off bipap, less sob and more alert - s/p g-tube - skin care per protocol - d/w Dr. Durán 2. Hypoxic. Continue treatment per Pulmonary Medicine. The patient is on a breathing mask. 3. Right heel wound was noted. He has been seen by Surgery. Upon reviewing the Surgery note, it does not seem to be acutely infected. Continue wound care per Surgery. 4. The patient has history of Down syndrome. 5. Nonverbal. 6. Hypothyroidism. Continue thyroid supplementation. 7. Hypertension. Continue blood pressure treatment per primary care team. 8. Congestive heart failure. 9. Hyperlipidemia. 10. Anemia. 11. Gastroesophageal reflux disease. 12. . 13. Hypoxia. 14. Breathing mask. 15. Wound care protocol. Continue wound treatment per protocol. 16. Allergies to ketamine and NSAIDs. 17. Social history is negative. 18. Family history is noncontributory. 19. MAR is noted. 20. Case was discussed with RN. 21. Case was discussed with Dr. Durán. 22. mrsa and vre colonization Subjective Constitutional: Reports: fever - fever yesterday but none today HEENT: Denies: congestion Respiratory: Denies: shortness of breath Cardiovascular: Denies: chest pain Gastrointestinal/Abdominal: Denies: nausea, vomiting, diarrhea Genitourinary: Reports: other - + jones Neurologic: Denies: headache Psychiatric: Denies: depression Skin: Denies: rash Hematologic: Denies: bleeding Musculoskeletal: Denies: pain Allergies: Coded Allergies: KETAMINE (Verified Allergy, Unknown, 05/29/19) NSAIDS (NON-STEROIDAL ANTI-INFLAMMA (Verified Allergy, Unknown, 05/29/19) Objective Vital Signs Last 24 Hour Vital Signs Date Time Temp Pulse Resp B/P (MAP) Pulse Ox O2 Delivery O2 Flow Rate FiO2 06/15/19 12:00 98.4 81 19 127/77 (94) 98 10/28/19 11:48 92 18 95 Room Air 21 90 18 92 06/15/19 09:00 Nasal Cannula 5.0 06/15/19 08:00 98.3 78 20 128/82 (97) 97 06/15/19 07:51 93 18 96 Room Air 21 87 18 93 06/15/19 07:51 93 Room Air 21 06/15/19 05:24 85 19 100 Facial 35 06/15/19 04:00 97.5 99 20 117/68 (84) 98 06/15/19 04:00 Nasal Cannula 5.0 06/15/19 03:27 75 06/15/19 02:53 87 19 96 Facial 35 89 20 97 Bi-Pap 35 06/15/19 01:28 79 18 6 Facial 35 06/15/19 00:00 98.5 99 22 134/55 (81) 97 06/15/19 00:00 Nasal Cannula 5.0 06/14/19 23:26 93 06/14/19 23:00 104 18 96 Bi-Pap 35 101 18 96 06/14/19 23:00 97 33 97 Facial 35 06/14/19 22:00 5.0 06/14/19 20:00 Nasal Cannula 5.0 06/14/19 20:00 98.4 95 20 102/44 (63) 92 06/14/19 19:43 98.4 06/14/19 19:34 106 06/14/19 19:22 90 Nasal Cannula 4.0 36 06/14/19 19:21 106 18 95 Nasal Cannula 4.0 36 104 18 90 06/14/19 16:00 100.2 110 24 116/61 (79) 92 06/14/19 16:00 Nasal Cannula 5.0 06/14/19 16:00 92 06/14/19 15:59 84 22 99 Nasal Cannula 4.0 36 90 22 94 Height (Feet): 5 Height (Inches): 1.00 Weight (Pounds): 124 General Appearance: no acute distress HEENT: normocephalic, atraumatic, anicteric, mucous membranes moist Respiratory/Chest: lungs clear, normal breath sounds, no respiratory distress, no accessory muscle use Cardiovascular: normal rate, regular rhythm, no gallop/murmur Abdomen: normal bowel sounds, soft, non tender, no organomegaly, non distended Genitourinary: other - no jones Extremities: no cyanosis Skin: no rash 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 Most likely on the basis of pulmonary edema; other etiologies including inflammatory also possible. Posterior reticular opacities and nodular airspace opacities, could indicate active inflammatory changes or airspace edema Minimal pericardial thickening or fluid Mild diffuse esophageal wall thickening, could indicate esophagitis. Correlate with clinical findings Chest x-ray - 06/03/19 - Procedure: XRAY Chest 1v Indication: Shortness of breath Technique: One view of the chest Comparison: 2018 Findings: Body habitus limits evaluation. There is diffuse bilateral interstitial and airspace disease, increased from the previous exam. There is persistent right greater than left pleural fluid Impression: Worsening of bilateral interstitial and airspace edema, since prior study of 2 days earlier Chest x-ray - 06/06/19 - COMPARISON: Chest x-ray, 06 03 19 FINDINGS: Lungs: Interstitial thickening and airspace opacities bilaterally have moderately improved. Somewhat worsening right lower lung airspace opacities. Pleural space: Small bilateral pleural effusions, worse on the right, similar to prior study. Left costophrenic angle not on the [id number]. No pneumothorax. Heart: Unremarkable. No cardiomegaly. Mediastinum: Unremarkable. Bones joints: Thoracolumbar scoliosis. Tubes, lines and devices: NG tube traverses the diaphragm. IMPRESSION: 1. Interstitial thickening and airspace opacities bilaterally have moderately improved. Somewhat worsening right lower lung airspace opacities, somewhat consolidative. 2. Small bilateral pleural effusions, worse on the right, similar to prior study. Left costophrenic angle not on the [id number]. Chest x-ray - 06/09/19 - Procedure: XRAY Chest 1v Indication: Dyspnea Technique: One view of the chest Comparison: 06/06/2019 Findings: Nasogastric tube is again demonstrated. Bilateral interstitial airspace opacities, right basilar dense consolidation, bilateral pleural effusions are unchanged. Impression: Unchanged, over 3 days, findings as above. Chest x-ray - 06/11/19 - Procedure: XRAY Chest 1v Indication: Shortness of breath Technique: One view of the chest Comparison: 06/09/2019 Findings: Less optimal inspiration currently. Right basilar and left retrocardiac infiltrates are unchanged. Bilateral pleural effusions are unchanged. Impression: Unchanged, over 2 days, findings as above. Chest x-ray - 06/13/19 - IMPRESSION: 1. Persistent patchy opacity in the right lower lung as well as the retrocardiac region, concerning for pneumonia. 2. No significant change in the increased interstitial markings concerning for pulmonary vascular congestion versus interstitial pneumonitis. 3. Possible small bilateral effusions, stable. Microbiology Date/Time Source Procedure Growth Status 06/13/19 22:45 Blood Blood Culture - Preliminary NO GROWTH AFTER 24 HOURS Resulted 06/13/19 22:30 Blood Blood Culture - Preliminary NO GROWTH AFTER 24 HOURS Resulted 06/13/19 23:53 Urine,Clean Catch Urine Culture - Preliminary Resulted Laboratory Tests Test 06/15/19 04:35 06/15/19 10:15 White Blood Count 8.5 K/UL (4.8-10.8) Red Blood Count 3.30 M/UL (4.70-6.10) L Hemoglobin 10.6 G/DL (14.2-18.0) L Hematocrit 31.3 % (42.0-52.0) L Mean Corpuscular Volume 95 FL (80-99) Mean Corpuscular Hemoglobin 32.0 PG (27.0-31.0) H Mean Corpuscular Hemoglobin Concent 33.8 G/DL (32.0-36.0) Red Cell Distribution Width 12.1 % (11.6-14.8) Platelet Count 372 K/UL (150-450) Mean Platelet Volume 6.1 FL (6.5-10.1) L Neutrophils (%) (Auto) 63.9 % (45.0-75.0) Lymphocytes (%) (Auto) 25.2 % (20.0-45.0) Monocytes (%) (Auto) 7.3 % (1.0-10.0) Eosinophils (%) (Auto) 1.8 % (0.0-3.0) Basophils (%) (Auto) 1.8 % (0.0-2.0) Sodium Level 136 MMOL/L (136-145) Potassium Level 3.8 MMOL/L (3.5-5.1) Chloride Level 104 MMOL/L (98-107) Carbon Dioxide Level 26 MMOL/L (21-32) Anion Gap 6 mmol/L (5-15) Blood Urea Nitrogen 15 mg/dL (7-18) Creatinine 0.9 MG/DL (0.55-1.30) Estimat Glomerular Filtration Rate > 60 mL/min (>60) Glucose Level 98 MG/DL (74-106) Calcium Level 8.6 MG/DL (8.5-10.1) Vancomycin Level Trough 21.6 ug/mL (5.0-12.0) H Current Medications Medications (Trade) Dose Ordered Sig/Kendra Route PRN Reason Start Time Stop Time Status Last Admin Dose Admin Acetaminophen (Tylenol) 650 mg Q6H PRN RECTAL Mild Pain (Pain Scale 1-3) 06/15/19 06:30 06/30/19 06:29 Acetylcysteine (Mucomyst) 100 mg Q4HRT N 06/15/19 07:00 06/30/19 16:59 06/15/19 11:48 Albuterol/ Ipratropium (Albuterol/ Ipratropium) 3 ml Q4HRT N 06/15/19 07:00 06/18/19 14:59 06/15/19 11:48 Ascorbic Acid (Vitamin C) 500 mg DAILY NG 06/15/19 09:00 07/02/19 08:59 06/15/19 08:42 Azithromycin (Zithromax) 500 mg Q24HRS GT 06/15/19 23:00 06/20/19 22:59 Bisacodyl (Dulcolax) 10 mg DAILYPRN PRN RECTAL constipation 06/15/19 06:45 06/29/19 06:44 Cyanocobalamin (Vitamin B-12 Tab) 100 mcg DAILY NG 06/15/19 09:00 06/30/19 08:59 06/15/19 08:42 Docusate Sodium (Colace) 100 mg EVERY 12 HOURS NG 06/15/19 09:00 07/05/19 20:59 06/15/19 08:43 Famotidine (Pepcid I.v.) 20 mg Q12HR IVP 06/15/19 09:00 06/30/19 08:59 06/15/19 08:43 Ferrous Sulfate (Feosol) 325 mg DAILY NG 06/15/19 09:00 07/05/19 08:59 06/15/19 08:43 Fluconazole/ Sodium Chloride 200 ml @ 200 mls/hr Q24H IV 06/15/19 18:00 06/16/19 17:59 Heparin Sodium (Porcine) (Heparin 5000 units/ml) 5,000 units EVERY 12 HOURS SUBQ 06/15/19 09:00 06/29/19 08:59 06/15/19 08:45 Levothyroxine Sodium (Synthroid) 25 mcg DAILY IV 06/15/19 09:00 07/04/19 10:29 06/15/19 09:33 Lorazepam (Ativan 2mg/ml 1ml) 1 mg Q6H PRN IV Agitation 06/15/19 06:45 06/18/19 06:44 Meropenem 1 gm/ Sodium Chloride 100 ml @ 200 mls/hr Q8HR IVPB 06/15/19 14:00 06/18/19 13:59 06/15/19 14:01 Midodrine (Pro-Amatine) 5 mg TIDPRN PRN NG SBP<90 06/15/19 06:30 06/29/19 06:29 Morphine Sulfate (Morphine Sulfate) 2 mg Q4H PRN IVP For Pain 06/15/19 06:30 06/18/19 06:29 Multivitamins (Multivitamins) 1 tab DAILY NG 06/15/19 09:00 07/02/19 08:59 06/15/19 08:42 Vancomycin HCl (Vanco rx to dose) 1 ea DAILY PRN MISC Per rx protocol 06/15/19 09:00 07/13/19 21:59 Vancomycin HCl 1 gm/Dextrose 275 ml @ 183.708 mls/hr Q24H IVPB 06/16/19 06:00 06/21/19 05:59 Zinc Sulfate (Zinc Sulfate) 220 mg DAILY NG 06/15/19 09:00 06/25/19 08:59 06/15/19 08:42 Rafia Rand MD Jun 15, 2019 15:10
--- NOTE | 2019-06-15 15:51 | Surgery Progress Note ---
Surgery Progress Note Subjective Symptoms: improved, tolerating diet - Tolerating tube feeds, voiding well, passing flatus Objective Last 24 Hour Vital Signs Date Time Temp Pulse Resp B/P (MAP) Pulse Ox O2 Delivery O2 Flow Rate FiO2 06/15/19 12:00 98.4 81 19 127/77 (94) 98 06/15/19 11:48 92 18 95 Room Air 21 90 18 92 06/15/19 09:00 Nasal Cannula 5.0 06/15/19 08:00 98.3 78 20 128/82 (97) 97 06/15/19 07:51 93 18 96 Room Air 21 87 18 93 06/15/19 07:51 93 Room Air 21 06/15/19 05:24 85 19 100 Facial 35 06/15/19 04:00 97.5 99 20 117/68 (84) 98 06/15/19 04:00 Nasal Cannula 5.0 06/15/19 03:27 75 06/15/19 02:53 87 19 96 Facial 35 89 20 97 Bi-Pap 35 06/15/19 01:28 79 18 6 Facial 35 06/15/19 00:00 98.5 99 22 134/55 (81) 97 06/15/19 00:00 Nasal Cannula 5.0 06/14/19 23:26 93 06/14/19 23:00 104 18 96 Bi-Pap 35 101 18 96 06/14/19 23:00 97 33 97 Facial 35 06/14/19 22:00 5.0 06/14/19 20:00 Nasal Cannula 5.0 06/14/19 20:00 98.4 95 20 102/44 (63) 92 06/14/19 19:43 98.4 06/14/19 19:34 106 06/14/19 19:22 90 Nasal Cannula 4.0 36 06/14/19 19:21 106 18 95 Nasal Cannula 4.0 36 104 18 90 06/14/19 16:00 100.2 110 24 116/61 (79) 92 06/14/19 16:00 Nasal Cannula 5.0 06/14/19 16:00 92 06/14/19 15:59 84 22 99 Nasal Cannula 4.0 36 90 22 94 I&O Intake and Output 06/14/19 06/15/19 19:00 07:00 Intake Total 870 ml 860 ml Output Total 750 ml Balance 120 ml 860 ml Free Water 150 ml IV Total 210 ml 210 ml Tube Feeding 600 ml 500 ml Other 60 ml Output Urine Total 750 ml Dressing: saturated Wound: clean Cardiovascular: RSR Respiratory: clear, decreased breath sounds Abdomen: soft, present bowel sounds, other, non-distended Extremities: no cyanosis, other Laboratory Tests Test 06/15/19 04:35 06/15/19 10:15 White Blood Count 8.5 K/UL (4.8-10.8) Red Blood Count 3.30 M/UL (4.70-6.10) L Hemoglobin 10.6 G/DL (14.2-18.0) L Hematocrit 31.3 % (42.0-52.0) L Mean Corpuscular Volume 95 FL (80-99) Mean Corpuscular Hemoglobin 32.0 PG (27.0-31.0) H Mean Corpuscular Hemoglobin Concent 33.8 G/DL (32.0-36.0) Red Cell Distribution Width 12.1 % (11.6-14.8) Platelet Count 372 K/UL (150-450) Mean Platelet Volume 6.1 FL (6.5-10.1) L Neutrophils (%) (Auto) 63.9 % (45.0-75.0) Lymphocytes (%) (Auto) 25.2 % (20.0-45.0) Monocytes (%) (Auto) 7.3 % (1.0-10.0) Eosinophils (%) (Auto) 1.8 % (0.0-3.0) Basophils (%) (Auto) 1.8 % (0.0-2.0) Sodium Level 136 MMOL/L (136-145) Potassium Level 3.8 MMOL/L (3.5-5.1) Chloride Level 104 MMOL/L (98-107) Carbon Dioxide Level 26 MMOL/L (21-32) Anion Gap 6 mmol/L (5-15) Blood Urea Nitrogen 15 mg/dL (7-18) Creatinine 0.9 MG/DL (0.55-1.30) Estimat Glomerular Filtration Rate > 60 mL/min (>60) Glucose Level 98 MG/DL (74-106) Calcium Level 8.6 MG/DL (8.5-10.1) Vancomycin Level Trough 21.6 ug/mL (5.0-12.0) H Plan Problems: (1) Ulcer of right heel Assessment & Plan: This is a 54-year-old male with multiple medical comorbidities who is currently presented for fever and tachycardia. Patient identified to have abnormal decubitus pressure ulcer on right heel. On examination patient has a stage III full-thickness right heel decubitus ulcer periwound intact but mildly macerated. Surrounding erythema. No drainage. No underlying abscess. No bone palpable. No foul odor. Labs noted and identified. No signs of acute active inflammatory or infectious process from this. Patient does have a leukocytosis that significant. Will continue work-up for etiology Will recommend local wound care. Apply Thera honey followed by up to foam dressing daily. We will monitor. Thank you for this consultation we will follow with recommendations d/c planning (2) Fever Assessment & Plan: Low-grade fevers, tachycardia, leukocytosis, abnormal labs Head to toe skin integrity and wound eval completed as above UA noted chest x-ray noted aspiration pneumonia Continue antibiotics as per infectious disease PEG tube Continue with feeds as tolerated IV fluids. (3) Tachycardia (4) Severe sepsis Assessment & Plan: DAILY ESTIMATED NEEDS: Needs based on wound, wasting, pulmonary/ 46kg 30-35 kcals/kg 4401-5162 total kcals 1.3-1.8 g protein/kg 60-83 g total protein 25-30 mL/kg 1346-5383 total fluid mLs NUTRITION DIAGNOSIS: * Swallowing difficulty R/T dysphagia, respiratory status as evidenced by h/o Down's syndrome, on BIPAP qhs, now s/p PEG placement, NPO at this time. * Increased kcal/prot needs R/T wound healing and wasting as evidenced by pt admitted w/ stage 3 rt heel wound, w/ mild-moderate generalized wasting. CURRENT TF:NPO ENTERAL NUTRITION RECOMMENDATIONS: Jevity 1.2 @ 50ml/hr x 24 hrs to provide 1200ml, 1440kcal, 66g prot, 968ml free water * When medically appropriate, initiate Jevity 1.2 @ 20ml/hr x 6 hrs. * Advance 10ml q 4-6 hrs as tolerated to goal rate. * HOB over 30 degrees * Water flush of 100ml q 8 hrs ADDITIONAL RECOMMENDATIONS: * Calibrated bedscale wt - bedscale wt per RD= 101lbs vs EMR [id number] * Monitor lytes, replete as needed * Wound healing: continue MVI, Vit C 500mg QD, and ZnSO4 : add Jeremy 1pkt BID * Monitor TF tolerance: s/p PEG placement on 06/12 Additional Comments Discharge planning from surgical standpoint Alexis Ruffin Jun 15, 2019 15:51
[2019-06-15 16:00] VITALS: BP 126/80
--- NOTE | 2019-06-15 16:54 | Cardiac Electrophysiology PN ---
Assessment/Plan Assessment/Plan 1. Supraventricular tachycardia. Off beta morenita or CA blockers for hypotension Stable 2. CHF due to diastolic dysfunction with elevated BNP. Off Lasix for Low BP on midodrine. EF of 55%. 3. Hypotension on Midodrine. 4. Respiratory failure. On Venturi mask /BIPAP per Dr. Luevano 5. Severe sepsis is on broad-spectrum IV antibiotics per Dr. Rand. 6. Hypothyroidism. 7. Iron deficiency anemia. 8. Decubitus ulcer. 9. DNR and DNI 10. Down syndrome. 11. Dysphagia, S/P PEG DW RN Subjective Subjective Transferred to NMB. No events Objective Last 24 Hour Vital Signs Date Time Temp Pulse Resp B/P (MAP) Pulse Ox O2 Delivery O2 Flow Rate FiO2 06/15/19 16:10 85 18 94 Room Air 21 80 18 90 06/15/19 16:00 98.5 83 20 126/80 (95) 97 06/15/19 12:00 98.4 81 19 127/77 (94) 98 06/15/19 11:48 92 18 95 Room Air 21 90 18 92 06/15/19 09:00 Nasal Cannula 5.0 06/15/19 08:00 98.3 78 20 128/82 (97) 97 06/15/19 07:51 93 18 96 Room Air 21 87 18 93 06/15/19 07:51 93 Room Air 21 06/15/19 05:24 85 19 100 Facial 35 06/15/19 04:00 97.5 99 20 117/68 (84) 98 06/15/19 04:00 Nasal Cannula 5.0 06/15/19 03:27 75 06/15/19 02:53 87 19 96 Facial 35 89 20 97 Bi-Pap 35 06/15/19 01:28 79 18 6 Facial 35 06/15/19 00:00 98.5 99 22 134/55 (81) 97 06/15/19 00:00 Nasal Cannula 5.0 06/14/19 23:26 93 06/14/19 23:00 104 18 96 Bi-Pap 35 101 18 96 06/14/19 23:00 97 33 97 Facial 35 06/14/19 22:00 5.0 06/14/19 20:00 Nasal Cannula 5.0 06/14/19 20:00 98.4 95 20 102/44 (63) 92 06/14/19 19:43 98.4 06/14/19 19:34 106 06/14/19 19:22 90 Nasal Cannula 4.0 36 06/14/19 19:21 106 18 95 Nasal Cannula 4.0 36 104 18 90 Intake and Output 06/14/19 06/15/19 19:00 07:00 Intake Total 870 ml 860 ml Output Total 750 ml Balance 120 ml 860 ml Free Water 150 ml IV Total 210 ml 210 ml Tube Feeding 600 ml 500 ml Other 60 ml Output Urine Total 750 ml Laboratory Tests Test 06/15/19 04:35 06/15/19 10:15 White Blood Count 8.5 K/UL (4.8-10.8) Red Blood Count 3.30 M/UL (4.70-6.10) L Hemoglobin 10.6 G/DL (14.2-18.0) L Hematocrit 31.3 % (42.0-52.0) L Mean Corpuscular Volume 95 FL (80-99) Mean Corpuscular Hemoglobin 32.0 PG (27.0-31.0) H Mean Corpuscular Hemoglobin Concent 33.8 G/DL (32.0-36.0) Red Cell Distribution Width 12.1 % (11.6-14.8) Platelet Count 372 K/UL (150-450) Mean Platelet Volume 6.1 FL (6.5-10.1) L Neutrophils (%) (Auto) 63.9 % (45.0-75.0) Lymphocytes (%) (Auto) 25.2 % (20.0-45.0) Monocytes (%) (Auto) 7.3 % (1.0-10.0) Eosinophils (%) (Auto) 1.8 % (0.0-3.0) Basophils (%) (Auto) 1.8 % (0.0-2.0) Sodium Level 136 MMOL/L (136-145) Potassium Level 3.8 MMOL/L (3.5-5.1) Chloride Level 104 MMOL/L (98-107) Carbon Dioxide Level 26 MMOL/L (21-32) Anion Gap 6 mmol/L (5-15) Blood Urea Nitrogen 15 mg/dL (7-18) Creatinine 0.9 MG/DL (0.55-1.30) Estimat Glomerular Filtration Rate > 60 mL/min (>60) Glucose Level 98 MG/DL (74-106) Calcium Level 8.6 MG/DL (8.5-10.1) Vancomycin Level Trough 21.6 ug/mL (5.0-12.0) H Microbiology Date/Time Source Procedure Growth Status 06/13/19 22:45 Blood Blood Culture - Preliminary NO GROWTH AFTER 24 HOURS Resulted 06/13/19 22:30 Blood Blood Culture - Preliminary NO GROWTH AFTER 24 HOURS Resulted 06/13/19 23:53 Urine,Clean Catch Urine Culture - Preliminary Resulted Objective HEAD AND NECK: Mild JVD. BIPAP is on LUNGS: Coarse rhonchi. CARDIOVASCULAR: Regular S1 and S2 with no gallop. ABDOMEN: Soft.PEG in place EXTREMITIES: No pitting edema. Valerio Owen MD Jun 15, 2019 16:54
[2019-06-15 17:26] LABS: BASOPHILS % (AUTO) 1.6 % (0.0-2.0); EOSINOPHILS % (AUTO) 1.4 % (0.0-3.0); HEMOGLOBIN 11.3 G/DL (14.2-18.0); LYMPHOCYTES % (AUTO) 24.8 % (20.0-45.0); MEAN CORPUSCULAR VOLUME 93 FL (80-99); MONOCYTES % (AUTO) 5.9 % (1.0-10.0); NEUTROPHILS % (AUTO) 66.4 % (45.0-75.0); PLATELET COUNT 376 K/UL (150-450); RED BLOOD COUNT 3.44 M/UL (4.70-6.10); RED CELL DISTRIBUTION WIDTH 11.6 % (11.6-14.8); WHITE BLOOD COUNT 10.5 K/UL (4.8-10.8)
[2019-06-15 17:43] LABS: ALANINE AMINOTRANSFERASE 95 U/L (12-78); ALBUMIN 2.2 G/DL (3.4-5.0); ALBUMIN/GLOBULIN RATIO 0.4 (1.0-2.7); ALKALINE PHOSPHATASE 79 U/L (46-116); ANION GAP 9 mmol/L (5-15); ASPARTATE AMINO TRANSFERASE 57 U/L (15-37); BILIRUBIN,TOTAL 0.4 MG/DL (0.2-1.0); BLOOD UREA NITROGEN 16 mg/dL (7-18); CALCIUM 8.9 MG/DL (8.5-10.1); CARBON DIOXIDE 27 MMOL/L (21-32); CHLORIDE 102 MMOL/L (98-107); CREATININE 0.9 MG/DL (0.55-1.30); SODIUM 138 MMOL/L (136-145)
--- NOTE | 2019-06-15 19:14 | General Progress Note ---
Assessment/Plan Problem List: (1) Severe sepsis ICD Codes: A41.9 - Sepsis, unspecified organism; R65.20 - Severe sepsis without septic shock SNOMED: 22787652 (2) Acute on chronic respiratory failure with hypoxia and hypercapnia ICD Codes: J96.21 - Acute and chronic respiratory failure with hypoxia; J96.22 - Acute and chronic respiratory failure with hypercapnia SNOMED: 35737601230768 (3) Tachycardia ICD Codes: R00.0 - Tachycardia, unspecified SNOMED: 6758239 (4) Fever ICD Codes: R50.9 - Fever, unspecified SNOMED: 400219082 (5) CHF (congestive heart failure) ICD Codes: I50.9 - Heart failure, unspecified SNOMED: 43781318 (6) Iron deficiency anemia ICD Codes: D50.9 - Iron deficiency anemia, unspecified SNOMED: 08905796 (7) GERD (gastroesophageal reflux disease) ICD Codes: K21.9 - Gastro-esophageal reflux disease without esophagitis SNOMED: 377575483 (8) HTN (hypertension) ICD Codes: I10 - Essential (primary) hypertension SNOMED: 25521326 (9) Hypothyroid ICD Codes: E03.9 - Hypothyroidism, unspecified SNOMED: 29529037 (10) Pneumonia ICD Codes: J18.9 - Pneumonia, unspecified organism SNOMED: 699721757 (11) Ulcer of right heel ICD Codes: L97.419 - Non-pressure chronic ulcer of right heel and midfoot with unspecified severity SNOMED: 615978339 Status: stable Assessment/Plan: Dwayne Gibson is a 54 yo man with PMH of Down's syndrome (nonverbal and bedbound at baseline), CHF (unknown EF), HTN, HLD, iron deficiency anemia, hypothyroid, GERD, with JANETTE 1 cm2, and bilateral foot pressure ulcers who presented from [facility] with fever, cough, and hypoxia, found with Tm 100.5, leukocytosis with left shift, and CXR suggestive of possible bilateral infiltrate, admitted for acute on chronic hypoxemic respiratory failure and sepsis 2/2 HCAP. #Acute hypoxemic/hypercapnic respiratory failure 2/2 MRSA and Naina HCAP and bilateral pleural effusions- Improving overall #Sepsis 2/2 HCAP -septic 06/09/19 (Heart rate, Temp 101.7) -resolved #Bilateral pleural effusions - stable > Tm 100.5 on admission, WBC 20.5 with bands, RR to 30s, tachycardic to 130s > Lactate 1.2 > ABG on admission 7.4/39//24 > BCX negative to date > F/U sputum CX > ESR 119, CRp 29 > S/p IVF NS 30cc/kg sepsis bolus and gentle continuous D5NS IVF. HL IVF 06/05 given increased PVC on CXR and worsening respiratory failure. > Venous duplex negative for DVT > CXR 06/01/19 with worsening right sided pleural effusion, 06/06 CXR with mild improvement noted and reviewed, 06/10, unchanged, 06/11 unchanged > CT chest performed showing bilateral pneumonia and moderate pleural effusions >sputum culture: normal shoshana, though after antibiotics initiated > UA not overtly suggestive of UTI > Ct chest noncontrast showing bilateral pleural effusions -continue vanc per pharm until 06/20/19. -Continue meropenem until 06/20/19 - Continue diflucan per ID (06/09 - ) end date 06/20/19 -f/u cxr periodically -Discontinue zosyn 4.5gm IV q6hrs (05/30- 06/09) - stopped amikacin per infectious disease (06/09 - 06/13 ) - Wean oxygen to keep O2 sat >/=92%. Continues intermittent BiPAP and nonrebreather - Pulm/crit care consulted, appreciate recs. Nebs scheduled q4hrs with suction q4hrs. - OK for transfer to subacute when stable - Infectious disease consulted Dr. Serrano. Appreciate recommendations - Appreciate general surgery recommendations: Dr. Ruffin - Tylenol 650mg PO q6hrs PRN pain or fever - Duonebs - follow up legionella, urine (sent 06/11/19) #Dysphasia #Goals of care > Patient removed NG tube overnight (06/11/19) > s/p PEG 06/12/[address] care and trials as he used to be able to eat 100 % with assistance at SNF -Appreciate ST recommendations - video swallow on 06/11/19 - failed -Previous extensive discussion with medical decision-maker Mr. Sheriff, regarding reversal of CODE STATUS to full code for procedure. Mr. Sheriff was okay with a temporary reversal. Also discussed the option of hospice given that the patient has had recurrent hospitalizations for the same problem ( aspiration pneumonia) over the past couple years. Mr. Sheriff would still like to proceed with the PEG. PEG placed 06/12 -Will reverse CODE STATUS to DNR DNI after procedure -continue PEG feeds #skin breakdown around nares bilaterally from patient movement of HFNC - improving -Can cautiously restart nasal cannula. No signs of ulcer. Patient will not keep on the facemask so need to try a nasal cannula -Appreciate wound care recs #hx HTN but now requiring PRN midodrine at SNF for intermittent hypotension #hx HFpEF (LVEF 55%), with most recent TTE on 05/29/19 showing EF 40-45% #hx #hx HLD - EKG with sinus tachycardia, TWI in lateral leads (no prior in chart for comparison). Troponin negative on admission. Low suspicion for acute ACS - Continue home midodrine 5mg PO TID PRN SBP<90 - Can resume home statin once able to tolerate PO - holding CLARICE-I, Beta Sadiq given intermittent hypotension - Appreciate cardiology recommendations: Dr. Owen - consider spot lasix dose if fluid overload is noted. ( done 06/05 ). Pro-BNP downtrending. #Metabolic Encephalopathy in setting of sepsis and underlying Down's syndrome - appears to be back to baseline - Baseline nonverbal and bedbound - Limit sedating medications as able #Mild transaminitis - resolved #Hepatitis B surface antigen positive. Appears to have acute hepatitis B infection > Ultrasound unremarkable > Hepatitis IgM core ab positive, surface Ab negative, BE ab positive - AST 38 and ALT 100 on admission, -Check further hepatitis B serologies, f/u hepatitis B DNA -Will need outpatient hepatotology follow up #Chronic hyponatremia - improving - Na 134 on admission, now 136 - Per records from SNF, Na was 132 on 05/05/19 - Monitor BMP #hx Hypothyroid - TSH 3.7 -Levothyroxine 25 mg IV daily. Will switch to p.o. once patient able to tolerate #hx GERD - Pepcid for home omeprazole #hx iron deficiency anemia - H/H stable - Continue home ferrous sulfate 325mg PO daily #Right heel wound - Present on admission - Appreciate wound care/surgery consult - Wound care as per recs # Thrombocytosis with platelets of 541,000 most likely reactive. - Monitor #hypokalemia - replete as needed FEN IVF: none DVT ppx: Heparin subq GI ppx: Pepcid Code Status: DNR/DNI with limited interventions Diet: Tube feedings, Bolus since 06/08/19 Dispo: SUBACUTE vs. SNF for intermittent BiPAP after PEG Reason for continued hospitalization: Acute hypoxic respiratory failure, dysphagia. Unable to safely discharge at this point given patient desaturates to 86% without oxygen and does not keep nasal cannula on. 28 minutes spent on this encounter. Discussed with RN. > 50% spent on counseling and care coordination. Time of note may not reflect time patient was seen. Subjective Date patient seen: Jun 15, 2019 Constitutional: Reports: no symptoms Neurologic/Psychiatric: Reports: no symptoms Hematologic/Lymphatic: Denies: anemia, easy bleeding, easy bruising, other Allergies: Coded Allergies: KETAMINE (Verified Allergy, Unknown, 05/29/19) NSAIDS (NON-STEROIDAL ANTI-INFLAMMA (Verified Allergy, Unknown, 05/29/19) Subjective No acute events overnight per nursing. Patient tolerating tube feeds well. Continues to require BiPAP at night. Desaturates to 86 to 90% on room air. Does not keep on nasal cannula. Further subjective history unable to be obtained as patient is nonverbal Objective Last 24 Hour Vital Signs Date Time Temp Pulse Resp B/P (MAP) Pulse Ox O2 Delivery O2 Flow Rate FiO2 06/15/19 16:10 85 18 94 Room Air 21 80 18 90 06/15/19 16:00 98.5 83 20 126/80 (95) 97 06/15/19 12:00 98.4 81 19 127/77 (94) 98 06/15/19 11:48 92 18 95 Room Air 21 90 18 92 06/15/19 09:00 Nasal Cannula 5.0 06/15/19 08:00 98.3 78 20 128/82 (97) 97 06/15/19 07:51 93 18 96 Room Air 21 87 18 93 06/15/19 07:51 93 Room Air 21 06/15/19 05:24 85 19 100 Facial 35 06/15/19 04:00 97.5 99 20 117/68 (84) 98 06/15/19 04:00 Nasal Cannula 5.0 06/15/19 03:27 75 06/15/19 02:53 87 19 96 Facial 35 89 20 97 Bi-Pap 35 06/15/19 01:28 79 18 6 Facial 35 06/15/19 00:00 98.5 99 22 134/55 (81) 97 06/15/19 00:00 Nasal Cannula 5.0 06/14/19 23:26 93 06/14/19 23:00 104 18 96 Bi-Pap 35 101 18 96 06/14/19 23:00 97 33 97 Facial 35 06/14/19 22:00 5.0 06/14/19 20:00 Nasal Cannula 5.0 06/14/19 20:00 98.4 95 20 102/44 (63) 92 06/14/19 19:43 98.4 06/14/19 19:34 106 06/14/19 19:22 90 Nasal Cannula 4.0 36 06/14/19 19:21 106 18 95 Nasal Cannula 4.0 36 104 18 90 Intake and Output 06/14/19 06/15/19 19:00 07:00 Intake Total 870 ml 860 ml Output Total 750 ml Balance 120 ml 860 ml Free Water 150 ml IV Total 210 ml 210 ml Tube Feeding 600 ml 500 ml Other 60 ml Output Urine Total 750 ml Laboratory Tests 06/15/19 04:35: White Blood Count 8.5, Red Blood Count 3.30L, Hemoglobin 10.6L, Hematocrit 31.3L , Mean Corpuscular Volume 95, Mean Corpuscular Hemoglobin 32.0H, Mean Corpuscular Hemoglobin Concent 33.8, Red Cell Distribution Width 12.1, Platelet Count 372, Mean Platelet Volume 6.1L, Neutrophils (%) (Auto) 63.9, Lymphocytes ( %) (Auto) 25.2, Monocytes (%) (Auto) 7.3, Eosinophils (%) (Auto) 1.8, Basophils (%) (Auto) 1.8, Sodium Level 136, Potassium Level 3.8, Chloride Level 104, Carbon Dioxide Level 26, Anion Gap 6, Blood Urea Nitrogen 15, Creatinine 0.9, Estimat Glomerular Filtration Rate > 60, Glucose Level 98, Calcium Level 8.6 06/15/19 10:15: Vancomycin Level Trough 21.6H 06/15/19 17:05: White Blood Count 10.5, Red Blood Count 3.44L, Hemoglobin 11.3L, Hematocrit 32.0L, Mean Corpuscular Volume 93, Mean Corpuscular Hemoglobin 32.7H, Mean Corpuscular Hemoglobin Concent 35.2, Red Cell Distribution Width 11.6, Platelet Count 376, Mean Platelet Volume 6.1L, Neutrophils (%) (Auto) 66.4, Lymphocytes ( %) (Auto) 24.8, Monocytes (%) (Auto) 5.9, Eosinophils (%) (Auto) 1.4, Basophils (%) (Auto) 1.6, Sodium Level 138, Potassium Level 4.0, Chloride Level 102, Carbon Dioxide Level 27, Anion Gap 9, Blood Urea Nitrogen 16, Creatinine 0.9, Estimat Glomerular Filtration Rate > 60, Glucose Level 97, Calcium Level 8.9, Total Bilirubin 0.4, Aspartate Amino Transf (AST/SGOT) 57H, Alanine Aminotransferase (ALT/SGPT) 95H, Alkaline Phosphatase 79, Total Protein 7.7, Albumin 2.2L, Globulin 5.5, Albumin/Globulin Ratio 0.4L Height (Feet): 5 Height (Inches): 1.00 Weight (Pounds): 124 General Appearance: WD/WN, no apparent distress, alert EENT: PERRL/EOMI, normal ENT inspection Neck: non-tender, normal alignment, supple Cardiovascular: normal peripheral pulses, normal rate, regular rhythm, no JVD Respiratory/Chest: chest wall non-tender, other - Coarse breath sounds bilaterally, improved overall Abdomen: normal bowel sounds, non tender, other Extremities: normal range of motion, non-tender, other - No lower extremity edema bilaterally Neurologic: customer care assistant II-XII grossly normal, no motor/sensory deficits, alert, responsive Skin: normal pigmentation, warm/dry Joseph Durán D.O. Jun 15, 2019 19:14
[2019-06-15 20:00] VITALS: BP 93/54
--- NOTE | 2019-06-15 22:07 | Pulmonology Progress Note ---
Assessment/Plan Assessment/Plan Pulmonary Progress Note Assessment/Plan Problems: (1) Pneumonia (2) Acute and chronic respiratory failure with hypoxia (3) Severe sepsis (4) Fever (5) Down's syndrome (6) Tachycardia (7) Hypothyroid (8) HLD (hyperlipidemia) (9) HTN (hypertension) (10) GERD (gastroesophageal reflux disease) (11) Iron deficiency anemia (12) CHF (congestive heart failure) Assessment/Plan Problem List: 1. HCAP/BLL PNA, likely aspiration 2. Hypercapnic hypoxemic respiratory failure, prn BiPAP 3. Down syndrome. 4. Small/mod b effusions 5. HTN & Hyperlipidemia 6. Gastroesophageal reflux disease. 7. Decubitus ulcers. Plan: -NGTF's only when stable off BiPAP -BiPAP 12/5 qhs and prn -Titrate NRBFM -cont abx per ID -monitor effusions -GUN PERFORATOR recs, VSS, GT not within GOC -DNAR/DNI -Consider palliative care eval -Dispo planning to SUBACUTE or LTACH Case d/w RN Subjective Allergies: Coded Allergies: KETAMINE (Verified Allergy, Unknown, 05/29/19) NSAIDS (NON-STEROIDAL ANTI-INFLAMMA (Verified Allergy, Unknown, 05/29/19) Subjective AFVSS CXR unchanged Objective Vital Signs Noted General Appearance: no acute distress, cachetic HEENT: normocephalic, atraumatic, other - on BiPAP Respiratory/Chest: rhonchi Cardiovascular: normal peripheral pulses, normal rate, regular rhythm Abdomen: normal bowel sounds, soft, non tender, no organomegaly, non distended , no mass Extremities: no cyanosis, no clubbing, no edema Laboratory Tests Noted CXR: 1. No significant interval change from the prior chest x-ray. 2. Persistent consolidation in the lung bases, right greater than left, which may represent atelectasis versus pneumonia. 3. Persistent increased interstitial markings which may be related to pulmonary vascular congestion versus interstitial pneumonitis. 4. Possible tiny pleural effusions. Subjective ROS Limited/Unobtainable: No Allergies: Coded Allergies: KETAMINE (Verified Allergy, Unknown, 05/29/19) NSAIDS (NON-STEROIDAL ANTI-INFLAMMA (Verified Allergy, Unknown, 05/29/19) Objective Last 24 Hour Vital Signs Date Time Temp Pulse Resp B/P (MAP) Pulse Ox O2 Delivery O2 Flow Rate FiO2 10/28/19 20:25 Nasal Cannula 5.0 06/15/19 20:00 98.9 109 25 93/54 (67) 94 06/15/19 19:09 82 18 94 Room Air 21 06/15/19 19:09 85 18 94 Room Air 21 82 18 94 06/15/19 19:09 94 Room Air 21 06/15/19 16:10 85 18 94 Room Air 21 80 18 90 06/15/19 16:00 98.5 83 20 126/80 (95) 97 06/15/19 12:00 98.4 81 19 127/77 (94) 98 06/15/19 11:48 92 18 95 Room Air 21 90 18 92 06/15/19 09:00 Nasal Cannula 5.0 06/15/19 08:00 98.3 78 20 128/82 (97) 97 06/15/19 07:51 93 18 96 Room Air 21 87 18 93 06/15/19 07:51 93 Room Air 21 06/15/19 05:24 85 19 100 Facial 35 06/15/19 04:00 97.5 99 20 117/68 (84) 98 06/15/19 04:00 Nasal Cannula 5.0 06/15/19 03:27 75 06/15/19 02:53 87 19 96 Facial 35 89 20 97 Bi-Pap 35 06/15/19 01:28 79 18 6 Facial 35 06/15/19 00:00 98.5 99 22 134/55 (81) 97 06/15/19 00:00 Nasal Cannula 5.0 06/14/19 23:26 93 06/14/19 23:00 104 18 96 Bi-Pap 35 101 18 96 06/14/19 23:00 97 33 97 Facial 35 Intake and Output 06/14/19 06/15/19 19:00 07:00 Intake Total 870 ml 860 ml Output Total 750 ml Balance 120 ml 860 ml Free Water 150 ml IV Total 210 ml 210 ml Tube Feeding 600 ml 500 ml Other 60 ml Output Urine Total 750 ml Microbiology Date/Time Source Procedure Growth Status 06/13/19 22:45 Blood Blood Culture - Preliminary NO GROWTH AFTER 24 HOURS Resulted 06/13/19 22:30 Blood Blood Culture - Preliminary NO GROWTH AFTER 24 HOURS Resulted 06/13/19 23:53 Urine,Clean Catch Urine Culture - Preliminary Resulted Laboratory Tests 06/15/19 04:35: White Blood Count 8.5, Red Blood Count 3.30L, Hemoglobin 10.6L, Hematocrit 31.3L , Mean Corpuscular Volume 95, Mean Corpuscular Hemoglobin 32.0H, Mean Corpuscular Hemoglobin Concent 33.8, Red Cell Distribution Width 12.1, Platelet Count 372, Mean Platelet Volume 6.1L, Neutrophils (%) (Auto) 63.9, Lymphocytes ( %) (Auto) 25.2, Monocytes (%) (Auto) 7.3, Eosinophils (%) (Auto) 1.8, Basophils (%) (Auto) 1.8, Sodium Level 136, Potassium Level 3.8, Chloride Level 104, Carbon Dioxide Level 26, Anion Gap 6, Blood Urea Nitrogen 15, Creatinine 0.9, Estimat Glomerular Filtration Rate > 60, Glucose Level 98, Calcium Level 8.6 06/15/19 10:15: Vancomycin Level Trough 21.6H 06/15/19 17:05: White Blood Count 10.5, Red Blood Count 3.44L, Hemoglobin 11.3L, Hematocrit 32.0L, Mean Corpuscular Volume 93, Mean Corpuscular Hemoglobin 32.7H, Mean Corpuscular Hemoglobin Concent 35.2, Red Cell Distribution Width 11.6, Platelet Count 376, Mean Platelet Volume 6.1L, Neutrophils (%) (Auto) 66.4, Lymphocytes ( %) (Auto) 24.8, Monocytes (%) (Auto) 5.9, Eosinophils (%) (Auto) 1.4, Basophils (%) (Auto) 1.6, Sodium Level 138, Potassium Level 4.0, Chloride Level 102, Carbon Dioxide Level 27, Anion Gap 9, Blood Urea Nitrogen 16, Creatinine 0.9, Estimat Glomerular Filtration Rate > 60, Glucose Level 97, Calcium Level 8.9, Total Bilirubin 0.4, Aspartate Amino Transf (AST/SGOT) 57H, Alanine Aminotransferase (ALT/SGPT) 95H, Alkaline Phosphatase 79, Total Protein 7.7, Albumin 2.2L, Globulin 5.5, Albumin/Globulin Ratio 0.4L Current Medications Medications (Trade) Dose Ordered Sig/Kendra Route PRN Reason Start Time Stop Time Status Last Admin Dose Admin Acetaminophen (Tylenol) 650 mg Q6H PRN RECTAL Mild Pain (Pain Scale 1-3) 06/15/19 06:30 06/30/19 06:29 Acetylcysteine (Mucomyst) 100 mg Q4HRT HHN 06/15/19 07:00 06/30/19 16:59 06/15/19 19:09 Albuterol/ Ipratropium (Albuterol/ Ipratropium) 3 ml Q4HRT HHN 06/15/19 07:00 06/18/19 14:59 06/15/19 19:09 Ascorbic Acid (Vitamin C) 500 mg DAILY NG 06/15/19 09:00 07/02/19 08:59 06/15/19 08:42 Bisacodyl (Dulcolax) 10 mg DAILYPRN PRN RECTAL constipation 06/15/19 06:45 06/29/19 06:44 Cyanocobalamin (Vitamin B-12 Tab) 100 mcg DAILY NG 06/15/19 09:00 06/30/19 08:59 06/15/19 08:42 Docusate Sodium (Colace) 100 mg EVERY 12 HOURS NG 06/15/19 09:00 07/05/19 20:59 06/15/19 20:33 Famotidine (Pepcid I.v.) 20 mg Q12HR IVP 06/15/19 09:00 06/30/19 08:59 06/15/19 20:33 Ferrous Sulfate (Feosol) 325 mg DAILY NG 06/15/19 09:00 07/05/19 08:59 06/15/19 08:43 Fluconazole (Diflucan) 400 mg DAILY ORAL 06/16/19 09:00 06/23/19 08:59 Heparin Sodium (Porcine) (Heparin 5000 units/ml) 5,000 units EVERY 12 HOURS SUBQ 06/15/19 09:00 06/29/19 08:59 06/15/19 20:47 Levothyroxine Sodium (Synthroid) 25 mcg DAILY IV 06/15/19 09:00 07/04/19 10:29 06/15/19 09:33 Lorazepam (Ativan 2mg/ml 1ml) 1 mg Q6H PRN IV Agitation 06/15/19 06:45 06/18/19 06:44 Meropenem 1 gm/ Sodium Chloride 100 ml @ 200 mls/hr Q8HR IVPB 06/15/19 14:00 06/18/19 13:59 06/15/19 21:00 Midodrine (Pro-Amatine) 5 mg TIDPRN PRN NG SBP<90 06/15/19 06:30 06/29/19 06:29 Morphine Sulfate (Morphine Sulfate) 2 mg Q4H PRN IVP For Pain 06/15/19 06:30 06/18/19 06:29 Multivitamins (Multivitamins) 1 tab DAILY NG 06/15/19 09:00 07/02/19 08:59 06/15/19 08:42 Vancomycin HCl (Vanco rx to dose) 1 ea DAILY PRN MISC Per rx protocol 06/15/19 09:00 07/13/19 21:59 Vancomycin HCl 1 gm/Dextrose 275 ml @ 183.708 mls/hr Q24H IVPB 06/16/19 06:00 06/21/19 05:59 Zinc Sulfate (Zinc Sulfate) 220 mg DAILY NG 06/15/19 09:00 06/25/19 08:59 06/15/19 08:42 Dwayne Barrientos MD Jun 15, 2019 22:07
[2019-06-15] MEDS ORDERED: Azithromycin 250mg tab GT SCH (23:00)
[2019-06-16] VITALS: BP 96/47
[2019-06-16] MEDS: Albuterol/Ipratropium 3ml neb HHN SCH ×6 (03:25→23:37)
[2019-06-16 04:00] VITALS: BP 94/50
[2019-06-16] MEDS: Vancomycin 1gm/D5W 275ml IVPB SCH ×2 (05:50)
[2019-06-16 07:06] LABS: BASOPHILS % (AUTO) 1.4 % (0.0-2.0); EOSINOPHILS % (AUTO) 1.3 % (0.0-3.0); HEMATOCRIT 35.8 % (42.0-52.0); HEMOGLOBIN 12.3 G/DL (14.2-18.0); LYMPHOCYTES % (AUTO) 19.8 % (20.0-45.0); MEAN CORPUSCULAR VOLUME 95 FL (80-99); MONOCYTES % (AUTO) 6.4 % (1.0-10.0); NEUTROPHILS % (AUTO) 71.1 % (45.0-75.0); PLATELET COUNT 375 K/UL (150-450); RED BLOOD COUNT 3.76 M/UL (4.70-6.10); RED CELL DISTRIBUTION WIDTH 12.5 % (11.6-14.8); WHITE BLOOD COUNT 9.9 K/UL (4.8-10.8)
[2019-06-16 08:00] VITALS: BP 94/54
[2019-06-16] MEDS: Docusate 100mg/10ml Liq NG SCH ×2 (10:11→21:00)
[2019-06-16] MEDS: Ferrous Sulfate 300 MG/5 ML UDC NG SCH (10:11)
[2019-06-16] MEDS: Vitamin B-12 100mcg tab NG SCH (10:13)
[2019-06-16] MEDS: Ascorbic Acid 500mg tab NG SCH (10:14)
[2019-06-16] MEDS: Zinc Sulfate 220mg cap NG SCH (10:15)
[2019-06-16] MEDS: Fluconazole 100mg tab ORAL SCH (10:17)
[2019-06-16] MEDS: Heparin 5000 units/ml inj SUBQ SCH ×2 (10:22→21:01)
--- NOTE | 2019-06-16 11:55 | Cardiac Electrophysiology PN ---
Assessment/Plan Assessment/Plan 1. Supraventricular tachycardia. Off beta morenita or CA blockers for hypotension. Stable 2. CHF due to diastolic dysfunction with elevated BNP. Off Lasix for Low BP on midodrine. EF of 55%. 3. Hypotension on Midodrine. 4. Respiratory failure. On Venturi mask /BIPAP per Dr. Luevano 5. Severe sepsis is on broad-spectrum IV antibiotics per Dr. Rand. 6. Hypothyroidism. 7. Iron deficiency anemia. 8. Decubitus ulcer. 9. DNR and DNI 10. Down syndrome. 11. Dysphagia, S/P PEG DW RN DC planning Subjective Subjective No events. RN at bedside. On Nasal cannula Objective Last 24 Hour Vital Signs Date Time Temp Pulse Resp B/P (MAP) Pulse Ox O2 Delivery O2 Flow Rate FiO2 06/16/19 10:55 106 23 98 Nasal Cannula 4.0 36 102 20 92 06/16/19 09:00 Nasal Cannula 4.0 06/16/19 08:19 96 Nasal Cannula 4.0 36 06/16/19 08:00 99.8 102 25 94/54 (67) 96 06/16/19 07:33 107 28 96 Nasal Cannula 4.0 36 98 25 97 06/16/19 07:18 98 25 97 06/16/19 05:39 90 30 96 Full Face 35 06/16/19 04:00 97.6 97 30 94/50 (65) 94 06/16/19 03:40 Full Face 06/16/19 03:40 102 40 98 Bi-Pap 35 06/16/19 03:25 101 37 98 Facial 35 06/16/19 03:25 101 37 98 Bi-Pap 35 06/16/19 00:43 105 34 97 Facial 35 06/16/19 00:00 98.7 103 29 96/47 (63) 94 06/15/19 23:24 92 32 98 Bi-Pap 35 06/15/19 23:09 91 31 96 Facial 35 06/15/19 23:09 91 31 96 Bi-Pap 35 06/15/19 22:00 5.0 06/15/19 20:25 Nasal Cannula 5.0 06/15/19 20:00 98.9 109 25 93/54 (67) 94 06/15/19 19:09 82 18 94 Room Air 21 06/15/19 19:09 85 18 94 Room Air 21 82 18 94 06/15/19 19:09 94 Room Air 21 06/15/19 16:10 85 18 94 Room Air 21 80 18 90 06/15/19 16:00 98.5 83 20 126/80 (95) 97 06/15/19 12:00 98.4 81 19 127/77 (94) 98 Intake and Output 06/15/19 06/16/19 19:00 07:00 Intake Total 885 ml 860 ml Output Total 600 ml Balance 285 ml 860 ml Free Water 100 ml 200 ml IV Total 100 ml Tube Feeding 685 ml 660 ml Output Urine Total 600 ml # Voids 3 Laboratory Tests Test 06/15/19 17:05 06/16/19 05:43 White Blood Count 10.5 K/UL (4.8-10.8) 9.9 K/UL (4.8-10.8) Red Blood Count 3.44 M/UL (4.70-6.10) L 3.76 M/UL (4.70-6.10) L Hemoglobin 11.3 G/DL (14.2-18.0) L 12.3 G/DL (14.2-18.0) L Hematocrit 32.0 % (42.0-52.0) L 35.8 % (42.0-52.0) L Mean Corpuscular Volume 93 FL (80-99) 95 FL (80-99) Mean Corpuscular Hemoglobin 32.7 PG (27.0-31.0) H 32.6 PG (27.0-31.0) H Mean Corpuscular Hemoglobin Concent 35.2 G/DL (32.0-36.0) 34.2 G/DL (32.0-36.0) Red Cell Distribution Width 11.6 % (11.6-14.8) 12.5 % (11.6-14.8) Platelet Count 376 K/UL (150-450) 375 K/UL (150-450) Mean Platelet Volume 6.1 FL (6.5-10.1) L 6.0 FL (6.5-10.1) L Neutrophils (%) (Auto) 66.4 % (45.0-75.0) 71.1 % (45.0-75.0) Lymphocytes (%) (Auto) 24.8 % (20.0-45.0) 19.8 % (20.0-45.0) L Monocytes (%) (Auto) 5.9 % (1.0-10.0) 6.4 % (1.0-10.0) Eosinophils (%) (Auto) 1.4 % (0.0-3.0) 1.3 % (0.0-3.0) Basophils (%) (Auto) 1.6 % (0.0-2.0) 1.4 % (0.0-2.0) Sodium Level 138 MMOL/L (136-145) Potassium Level 4.0 MMOL/L (3.5-5.1) Chloride Level 102 MMOL/L (98-107) Carbon Dioxide Level 27 MMOL/L (21-32) Anion Gap 9 mmol/L (5-15) Blood Urea Nitrogen 16 mg/dL (7-18) Creatinine 0.9 MG/DL (0.55-1.30) Estimat Glomerular Filtration Rate > 60 mL/min (>60) Glucose Level 97 MG/DL (74-106) Calcium Level 8.9 MG/DL (8.5-10.1) Total Bilirubin 0.4 MG/DL (0.2-1.0) Aspartate Amino Transf (AST/SGOT) 57 U/L (15-37) H Alanine Aminotransferase (ALT/SGPT) 95 U/L (12-78) H Alkaline Phosphatase 79 U/L (46-116) Total Protein 7.7 G/DL (6.4-8.2) Albumin 2.2 G/DL (3.4-5.0) L Globulin 5.5 g/dL Albumin/Globulin Ratio 0.4 (1.0-2.7) L Pro-B-Type Natriuretic Peptide 628 pg/mL (0-125) H Microbiology Date/Time Source Procedure Growth Status 06/13/19 22:45 Blood Blood Culture - Preliminary NO GROWTH AFTER 48 HOURS Resulted 06/13/19 22:30 Blood Blood Culture - Preliminary NO GROWTH AFTER 48 HOURS Resulted 06/13/19 23:53 Urine,Clean Catch Urine Culture - Preliminary YEAST Resulted Objective HEAD AND NECK: Mild JVD. BIPAP is on LUNGS: Coarse rhonchi. CARDIOVASCULAR: Regular S1 and S2 with no gallop. ABDOMEN: Soft.PEG in place EXTREMITIES: No pitting edema. Valerio Owen MD Jun 16, 2019 11:55
[2019-06-16 12:00] VITALS: BP 92/53
[2019-06-16] MEDS ORDERED: Miralax 17gm pkt GT SCH (12:45)
--- NOTE | 2019-06-16 12:54 | GI Progress Note ---
Assessment/Plan Problems: (1) Iron deficiency anemia ICD Codes: D50.9 - Iron deficiency anemia, unspecified SNOMED: 47732384 (2) Down's syndrome ICD Codes: Q90.9 - Down syndrome, unspecified SNOMED: 29082388, [id number] (3) GERD (gastroesophageal reflux disease) ICD Codes: K21.9 - Gastro-esophageal reflux disease without esophagitis SNOMED: 400149827 Status: unchanged Status Narrative Discussed with Dr. Rubio. Assessment/Plan s/p PEG placement GTF fu labs abx bowel regimen >> colace + miralax pulm care dc planning The patient was seen and examined at bedside and all new and available data was reviewed in the patients chart. I agree with the above findings, impression and plan. (Patient seen earlier today. Signature stamp does not reflect patient encounter time.). - Lewis Rubio MD Subjective Subjective limited Objective Last 24 Hour Vital Signs Date Time Temp Pulse Resp B/P (MAP) Pulse Ox O2 Delivery O2 Flow Rate FiO2 06/16/19 10:55 106 23 98 Nasal Cannula 4.0 36 102 20 92 06/16/19 09:00 Nasal Cannula 4.0 06/16/19 08:19 96 Nasal Cannula 4.0 36 06/16/19 08:00 99.8 102 25 94/54 (67) 96 06/16/19 07:33 107 28 96 Nasal Cannula 4.0 36 98 25 97 06/16/19 07:18 98 25 97 06/16/19 05:39 90 30 96 Full Face 35 06/16/19 04:00 97.6 97 30 94/50 (65) 94 06/16/19 03:40 Full Face 06/16/19 03:40 102 40 98 Bi-Pap 35 06/16/19 03:25 101 37 98 Facial 35 06/16/19 03:25 101 37 98 Bi-Pap 35 06/16/19 00:43 105 34 97 Facial 35 06/16/19 00:00 98.7 103 29 96/47 (63) 94 06/15/19 23:24 92 32 98 Bi-Pap 35 06/15/19 23:09 91 31 96 Facial 35 06/15/19 23:09 91 31 96 Bi-Pap 35 06/15/19 22:00 5.0 06/15/19 20:25 Nasal Cannula 5.0 06/15/19 20:00 98.9 109 25 93/54 (67) 94 06/15/19 19:09 82 18 94 Room Air 21 06/15/19 19:09 85 18 94 Room Air 21 82 18 94 06/15/19 19:09 94 Room Air 21 06/15/19 16:10 85 18 94 Room Air 21 80 18 90 06/15/19 16:00 98.5 83 20 126/80 (95) 97 Intake and Output 06/15/19 06/16/19 19:00 07:00 Intake Total 885 ml 860 ml Output Total 600 ml Balance 285 ml 860 ml Free Water 100 ml 200 ml IV Total 100 ml Tube Feeding 685 ml 660 ml Output Urine Total 600 ml # Voids 3 Laboratory Tests Test 06/15/19 17:05 06/16/19 05:43 White Blood Count 10.5 K/UL (4.8-10.8) 9.9 K/UL (4.8-10.8) Red Blood Count 3.44 M/UL (4.70-6.10) L 3.76 M/UL (4.70-6.10) L Hemoglobin 11.3 G/DL (14.2-18.0) L 12.3 G/DL (14.2-18.0) L Hematocrit 32.0 % (42.0-52.0) L 35.8 % (42.0-52.0) L Mean Corpuscular Volume 93 FL (80-99) 95 FL (80-99) Mean Corpuscular Hemoglobin 32.7 PG (27.0-31.0) H 32.6 PG (27.0-31.0) H Mean Corpuscular Hemoglobin Concent 35.2 G/DL (32.0-36.0) 34.2 G/DL (32.0-36.0) Red Cell Distribution Width 11.6 % (11.6-14.8) 12.5 % (11.6-14.8) Platelet Count 376 K/UL (150-450) 375 K/UL (150-450) Mean Platelet Volume 6.1 FL (6.5-10.1) L 6.0 FL (6.5-10.1) L Neutrophils (%) (Auto) 66.4 % (45.0-75.0) 71.1 % (45.0-75.0) Lymphocytes (%) (Auto) 24.8 % (20.0-45.0) 19.8 % (20.0-45.0) L Monocytes (%) (Auto) 5.9 % (1.0-10.0) 6.4 % (1.0-10.0) Eosinophils (%) (Auto) 1.4 % (0.0-3.0) 1.3 % (0.0-3.0) Basophils (%) (Auto) 1.6 % (0.0-2.0) 1.4 % (0.0-2.0) Sodium Level 138 MMOL/L (136-145) Potassium Level 4.0 MMOL/L (3.5-5.1) Chloride Level 102 MMOL/L (98-107) Carbon Dioxide Level 27 MMOL/L (21-32) Anion Gap 9 mmol/L (5-15) Blood Urea Nitrogen 16 mg/dL (7-18) Creatinine 0.9 MG/DL (0.55-1.30) Estimat Glomerular Filtration Rate > 60 mL/min (>60) Glucose Level 97 MG/DL (74-106) Calcium Level 8.9 MG/DL (8.5-10.1) Total Bilirubin 0.4 MG/DL (0.2-1.0) Aspartate Amino Transf (AST/SGOT) 57 U/L (15-37) H Alanine Aminotransferase (ALT/SGPT) 95 U/L (12-78) H Alkaline Phosphatase 79 U/L (46-116) Total Protein 7.7 G/DL (6.4-8.2) Albumin 2.2 G/DL (3.4-5.0) L Globulin 5.5 g/dL Albumin/Globulin Ratio 0.4 (1.0-2.7) L Pro-B-Type Natriuretic Peptide 628 pg/mL (0-125) H Height (Feet): 5 Height (Inches): 1.00 Weight (Pounds): 124 General Appearance: no apparent distress, alert Cardiovascular: normal rate Abdominal Exam: GT site - c/d/i Hector Harry [employer] Jun 16, 2019 12:54
--- NOTE | 2019-06-16 13:18 | Surgery Progress Note ---
Surgery Progress Note Subjective Additional Comments improving tolerating feeds labs noted exam stable Objective Last 24 Hour Vital Signs Date Time Temp Pulse Resp B/P (MAP) Pulse Ox O2 Delivery O2 Flow Rate FiO2 06/16/19 12:00 100.2 96 21 92/53 (66) 06/16/19 10:55 106 23 98 Nasal Cannula 4.0 36 102 20 92 06/16/19 09:00 Nasal Cannula 4.0 06/16/19 08:19 96 Nasal Cannula 4.0 36 06/16/19 08:00 99.8 102 25 94/54 (67) 96 06/16/19 07:33 107 28 96 Nasal Cannula 4.0 36 98 25 97 06/16/19 07:18 98 25 97 06/16/19 05:39 90 30 96 Full Face 35 06/16/19 04:00 97.6 97 30 94/50 (65) 94 06/16/19 03:40 Full Face 06/16/19 03:40 102 40 98 Bi-Pap 35 06/16/19 03:25 101 37 98 Facial 35 06/16/19 03:25 101 37 98 Bi-Pap 35 06/16/19 00:43 105 34 97 Facial 35 06/16/19 00:00 98.7 103 29 96/47 (63) 94 06/15/19 23:24 92 32 98 Bi-Pap 35 06/15/19 23:09 91 31 96 Facial 35 06/15/19 23:09 91 31 96 Bi-Pap 35 06/15/19 22:00 5.0 06/15/19 20:25 Nasal Cannula 5.0 06/15/19 20:00 98.9 109 25 93/54 (67) 94 06/15/19 19:09 82 18 94 Room Air 21 06/15/19 19:09 85 18 94 Room Air 21 82 18 94 06/15/19 19:09 94 Room Air 21 06/15/19 16:10 85 18 94 Room Air 21 80 18 90 06/15/19 16:00 98.5 83 20 126/80 (95) 97 I&O Intake and Output 06/15/19 06/16/19 19:00 07:00 Intake Total 885 ml 860 ml Output Total 600 ml Balance 285 ml 860 ml Free Water 100 ml 200 ml IV Total 100 ml Tube Feeding 685 ml 660 ml Output Urine Total 600 ml # Voids 3 Dressing: dry Wound: clean Cardiovascular: RSR Respiratory: clear Abdomen: soft, flat, non-tender, present bowel sounds, other Extremities: no cyanosis Laboratory Tests Test 06/15/19 17:05 06/16/19 05:43 White Blood Count 10.5 K/UL (4.8-10.8) 9.9 K/UL (4.8-10.8) Red Blood Count 3.44 M/UL (4.70-6.10) L 3.76 M/UL (4.70-6.10) L Hemoglobin 11.3 G/DL (14.2-18.0) L 12.3 G/DL (14.2-18.0) L Hematocrit 32.0 % (42.0-52.0) L 35.8 % (42.0-52.0) L Mean Corpuscular Volume 93 FL (80-99) 95 FL (80-99) Mean Corpuscular Hemoglobin 32.7 PG (27.0-31.0) H 32.6 PG (27.0-31.0) H Mean Corpuscular Hemoglobin Concent 35.2 G/DL (32.0-36.0) 34.2 G/DL (32.0-36.0) Red Cell Distribution Width 11.6 % (11.6-14.8) 12.5 % (11.6-14.8) Platelet Count 376 K/UL (150-450) 375 K/UL (150-450) Mean Platelet Volume 6.1 FL (6.5-10.1) L 6.0 FL (6.5-10.1) L Neutrophils (%) (Auto) 66.4 % (45.0-75.0) 71.1 % (45.0-75.0) Lymphocytes (%) (Auto) 24.8 % (20.0-45.0) 19.8 % (20.0-45.0) L Monocytes (%) (Auto) 5.9 % (1.0-10.0) 6.4 % (1.0-10.0) Eosinophils (%) (Auto) 1.4 % (0.0-3.0) 1.3 % (0.0-3.0) Basophils (%) (Auto) 1.6 % (0.0-2.0) 1.4 % (0.0-2.0) Sodium Level 138 MMOL/L (136-145) Potassium Level 4.0 MMOL/L (3.5-5.1) Chloride Level 102 MMOL/L (98-107) Carbon Dioxide Level 27 MMOL/L (21-32) Anion Gap 9 mmol/L (5-15) Blood Urea Nitrogen 16 mg/dL (7-18) Creatinine 0.9 MG/DL (0.55-1.30) Estimat Glomerular Filtration Rate > 60 mL/min (>60) Glucose Level 97 MG/DL (74-106) Calcium Level 8.9 MG/DL (8.5-10.1) Total Bilirubin 0.4 MG/DL (0.2-1.0) Aspartate Amino Transf (AST/SGOT) 57 U/L (15-37) H Alanine Aminotransferase (ALT/SGPT) 95 U/L (12-78) H Alkaline Phosphatase 79 U/L (46-116) Total Protein 7.7 G/DL (6.4-8.2) Albumin 2.2 G/DL (3.4-5.0) L Globulin 5.5 g/dL Albumin/Globulin Ratio 0.4 (1.0-2.7) L Pro-B-Type Natriuretic Peptide 628 pg/mL (0-125) H Plan Problems: (1) Ulcer of right heel Assessment & Plan: This is a 54-year-old male with multiple medical comorbidities who is currently presented for fever and tachycardia. Patient identified to have abnormal decubitus pressure ulcer on right heel. On examination patient has a stage III full-thickness right heel decubitus ulcer periwound intact but mildly macerated. Surrounding erythema. No drainage. No underlying abscess. No bone palpable. No foul odor. Labs noted and identified. No signs of acute active inflammatory or infectious process from this. Patient does have a leukocytosis that significant. Will continue work-up for etiology Will recommend local wound care. Apply Thera honey followed by up to foam dressing daily. We will monitor. Thank you for this consultation we will follow with recommendations d/c planning (2) Fever Assessment & Plan: Low-grade fevers, tachycardia, leukocytosis, abnormal labs Head to toe skin integrity and wound eval completed as above UA noted chest x-ray noted aspiration pneumonia Continue antibiotics as per infectious disease PEG tube Continue with feeds as tolerated IV fluids. (3) Tachycardia (4) Severe sepsis Assessment & Plan: DAILY ESTIMATED NEEDS: Needs based on wound, wasting, pulmonary/ 46kg 30-35 kcals/kg 6764-9775 total kcals 1.3-1.8 g protein/kg 60-83 g total protein 25-30 mL/kg 3615-9212 total fluid mLs NUTRITION DIAGNOSIS: * Swallowing difficulty R/T dysphagia, respiratory status as evidenced by h/o Down's syndrome, on BIPAP qhs, now s/p PEG placement, NPO at this time. * Increased kcal/prot needs R/T wound healing and wasting as evidenced by pt admitted w/ stage 3 rt heel wound, w/ mild-moderate generalized wasting. CURRENT TF:NPO ENTERAL NUTRITION RECOMMENDATIONS: Jevity 1.2 @ 50ml/hr x 24 hrs to provide 1200ml, 1440kcal, 66g prot, 968ml free water * When medically appropriate, initiate Jevity 1.2 @ 20ml/hr x 6 hrs. * Advance 10ml q 4-6 hrs as tolerated to goal rate. * HOB over 30 degrees * Water flush of 100ml q 8 hrs ADDITIONAL RECOMMENDATIONS: * Calibrated bedscale wt - bedscale wt per RD= 101lbs vs EMR [id number] * Monitor lytes, replete as needed * Wound healing: continue MVI, Vit C 500mg QD, and ZnSO4 : add Jeremy 1pkt BID * Monitor TF tolerance: s/p PEG placement on 06/12 Alexis Ruffin Jun 16, 2019 13:18
[2019-06-16] MEDS ORDERED: VANCOMYCIN1 GM/2002 IV (14:13)
[2019-06-16] MEDS ORDERED: MERREM1 GM IV (14:13)
[2019-06-16] MEDS ORDERED: ZINC SULFATE220 M1 NG (14:13)
[2019-06-16] MEDS ORDERED: Vanco pharmacy to dose MISC (14:13)
[2019-06-16] MEDS ORDERED: DIFLUCAN100 MG ORAL (14:13)
[2019-06-16] MEDS ORDERED: VITAMIN B-1100 M2 NG (14:13)
[2019-06-16] MEDS ORDERED: MIRALAX119 GM ORAL (14:13)
--- NOTE | 2019-06-16 14:18 | Pulmonology Progress Note ---
Assessment/Plan Problems: (1) Pneumonia (2) Acute and chronic respiratory failure with hypoxia (3) Severe sepsis (4) Fever (5) Down's syndrome (6) Tachycardia (7) Hypothyroid (8) HLD (hyperlipidemia) (9) HTN (hypertension) (10) GERD (gastroesophageal reflux disease) (11) Iron deficiency anemia (12) CHF (congestive heart failure) Assessment/Plan Problem List: 1. HCAP/BLL PNA, likely aspiration S/P treatment 2. Hypercapnic hypoxemic respiratory failure. 3. Down syndrome. 4. Small/mod b effusions 5. HTN & Hyperlipidemia 6. Gastroesophageal reflux disease. 7. Decubitus ulcers 8. Dysphagia S/P GT Plan: -Optimize pulmonary hygiene/mobilize as tolerated -BiPAP 12/5 qhs and prn -PRN O2 -cont abx per ID -monitor effusions -TF's -DNAR/DNI -Consider palliative care eval -Dispo planning to SNF Case d/w PMD Subjective Allergies: Coded Allergies: KETAMINE (Verified Allergy, Unknown, 05/29/19) NSAIDS (NON-STEROIDAL ANTI-INFLAMMA (Verified Allergy, Unknown, 05/29/19) Subjective AFVSS on NC Events reviewed S/P GT No distress no SOB no cough Objective Last 24 Hour Vital Signs Date Time Temp Pulse Resp B/P (MAP) Pulse Ox O2 Delivery O2 Flow Rate FiO2 06/16/19 12:00 100.2 96 21 92/53 (66) 06/16/19 10:55 106 23 98 Nasal Cannula 4.0 36 102 20 92 06/16/19 09:00 Nasal Cannula 4.0 06/16/19 08:19 96 Nasal Cannula 4.0 36 06/16/19 08:00 99.8 102 25 94/54 (67) 96 06/16/19 07:33 107 28 96 Nasal Cannula 4.0 36 98 25 97 06/16/19 07:18 98 25 97 06/16/19 05:39 90 30 96 Full Face 35 06/16/19 04:00 97.6 97 30 94/50 (65) 94 06/16/19 03:40 Full Face 06/16/19 03:40 102 40 98 Bi-Pap 35 06/16/19 03:25 101 37 98 Facial 35 06/16/19 03:25 101 37 98 Bi-Pap 35 06/16/19 00:43 105 34 97 Facial 35 06/16/19 00:00 98.7 103 29 96/47 (63) 94 06/15/19 23:24 92 32 98 Bi-Pap 35 06/15/19 23:09 91 31 96 Facial 35 06/15/19 23:09 91 31 96 Bi-Pap 35 06/15/19 22:00 5.0 06/15/19 20:25 Nasal Cannula 5.0 06/15/19 20:00 98.9 109 25 93/54 (67) 94 06/15/19 19:09 82 18 94 Room Air 21 06/15/19 19:09 85 18 94 Room Air 21 82 18 94 06/15/19 19:09 94 Room Air 21 06/15/19 16:10 85 18 94 Room Air 21 80 18 90 06/15/19 16:00 98.5 83 20 126/80 (95) 97 Intake and Output 06/15/19 06/16/19 19:00 07:00 Intake Total 885 ml 860 ml Output Total 600 ml Balance 285 ml 860 ml Free Water 100 ml 200 ml IV Total 100 ml Tube Feeding 685 ml 660 ml Output Urine Total 600 ml # Voids 3 General Appearance: no acute distress, cachetic HEENT: normocephalic, atraumatic, anicteric, mucous membranes moist Respiratory/Chest: rhonchi Cardiovascular: normal peripheral pulses, normal rate, regular rhythm Abdomen: normal bowel sounds, soft, non tender, no organomegaly, non distended , no mass, other - GT Extremities: no cyanosis, no clubbing, no edema, other - contracted Microbiology Date/Time Source Procedure Growth Status 06/13/19 22:45 Blood Blood Culture - Preliminary NO GROWTH AFTER 48 HOURS Resulted 06/13/19 22:30 Blood Blood Culture - Preliminary NO GROWTH AFTER 48 HOURS Resulted 06/13/19 23:53 Urine,Clean Catch Urine Culture - Preliminary YEAST Resulted Laboratory Tests 06/15/19 17:05: White Blood Count 10.5, Red Blood Count 3.44L, Hemoglobin 11.3L, Hematocrit 32.0L, Mean Corpuscular Volume 93, Mean Corpuscular Hemoglobin 32.7H, Mean Corpuscular Hemoglobin Concent 35.2, Red Cell Distribution Width 11.6, Platelet Count 376, Mean Platelet Volume 6.1L, Neutrophils (%) (Auto) 66.4, Lymphocytes ( %) (Auto) 24.8, Monocytes (%) (Auto) 5.9, Eosinophils (%) (Auto) 1.4, Basophils (%) (Auto) 1.6, Sodium Level 138, Potassium Level 4.0, Chloride Level 102, Carbon Dioxide Level 27, Anion Gap 9, Blood Urea Nitrogen 16, Creatinine 0.9, Estimat Glomerular Filtration Rate > 60, Glucose Level 97, Calcium Level 8.9, Total Bilirubin 0.4, Aspartate Amino Transf (AST/SGOT) 57H, Alanine Aminotransferase (ALT/SGPT) 95H, Alkaline Phosphatase 79, Total Protein 7.7, Albumin 2.2L, Globulin 5.5, Albumin/Globulin Ratio 0.4L 06/16/19 05:43: White Blood Count 9.9, Red Blood Count 3.76L, Hemoglobin 12.3L, Hematocrit 35.8L , Mean Corpuscular Volume 95, Mean Corpuscular Hemoglobin 32.6H, Mean Corpuscular Hemoglobin Concent 34.2, Red Cell Distribution Width 12.5, Platelet Count 375, Mean Platelet Volume 6.0L, Neutrophils (%) (Auto) 71.1, Lymphocytes ( %) (Auto) 19.8L, Monocytes (%) (Auto) 6.4, Eosinophils (%) (Auto) 1.3, Basophils (%) (Auto) 1.4, Pro-B-Type Natriuretic Peptide 628H Current Medications Medications (Trade) Dose Ordered Sig/Kendra Route PRN Reason Start Time Stop Time Status Last Admin Dose Admin Acetaminophen (Tylenol) 650 mg Q6H PRN RECTAL Mild Pain (Pain Scale 1-3) 06/15/19 06:30 06/30/19 06:29 Acetylcysteine (Mucomyst) 100 mg Q4HRT [facility] 06/15/19 07:00 06/30/19 16:59 06/16/19 10:37 Albuterol/ Ipratropium (Albuterol/ Ipratropium) 3 ml Q4HRT [facility] 06/15/19 07:00 06/18/19 14:59 06/16/19 10:37 Ascorbic Acid (Vitamin C) 500 mg DAILY 06/15/19 09:00 07/02/19 08:59 06/16/19 10:14 Bisacodyl (Dulcolax) 10 mg DAILYPRN PRN RECTAL constipation 06/15/19 06:45 06/29/19 06:44 Cyanocobalamin (Vitamin B-12 Tab) 100 mcg DAILY NG 06/15/19 09:00 06/30/19 08:59 06/16/19 10:13 Docusate Sodium (Colace) 100 mg EVERY 12 HOURS NG 06/15/19 09:00 07/05/19 20:59 06/16/19 10:11 Famotidine (Pepcid I.v.) 20 mg Q12HR IVP 06/15/19 09:00 06/30/19 08:59 06/16/19 09:56 Ferrous Sulfate (Feosol) 325 mg DAILY NG 06/15/19 09:00 07/05/19 08:59 06/16/19 10:11 Fluconazole (Diflucan) 400 mg DAILY ORAL 06/16/19 09:00 06/23/19 08:59 06/16/19 10:17 Heparin Sodium (Porcine) (Heparin 5000 units/ml) 5,000 units EVERY 12 HOURS SUBQ 06/15/19 09:00 06/29/19 08:59 06/16/19 10:22 Levothyroxine Sodium (Synthroid) 25 mcg DAILY IV 06/15/19 09:00 07/04/19 10:29 06/16/19 09:55 Lorazepam (Ativan 2mg/ml 1ml) 1 mg Q6H PRN IV Agitation 06/15/19 06:45 06/18/19 06:44 Meropenem 1 gm/ Sodium Chloride 100 ml @ 200 mls/hr Q8HR IVPB 06/15/19 14:00 06/18/19 13:59 06/16/19 13:36 Midodrine (Pro-Amatine) 5 mg TIDPRN PRN NG SBP<90 06/15/19 06:30 06/29/19 06:29 Morphine Sulfate (Morphine Sulfate) 2 mg Q4H PRN IVP For Pain 06/15/19 06:30 06/18/19 06:29 Multivitamins (Multivitamins) 1 tab DAILY NG 06/15/19 09:00 07/02/19 08:59 06/16/19 10:12 Polyethylene Glycol (Miralax) 17 gm BEDTIME ORAL 06/17/19 21:00 07/17/19 20:59 Vancomycin HCl (Vanco rx to dose) 1 ea DAILY PRN MISC Per rx protocol 06/15/19 09:00 07/13/19 21:59 Vancomycin HCl 1 gm/Dextrose 275 ml @ 183.708 mls/hr Q24H IVPB 06/16/19 06:00 06/21/19 05:59 06/16/19 05:50 Zinc Sulfate (Zinc Sulfate) 220 mg DAILY NG 06/15/19 09:00 06/25/19 08:59 06/16/19 10:15 Yovani Luevano MD Jun 16, 2019 14:18
--- NOTE | 2019-06-16 14:22 | Discharge Instructions ---
Discharge Instructions Discharge Instructions Diet: tube feeding Additional Diet Information: Tube feeding. Jevity 1.2, 55 cc/hr with FWF 100cc every 8 hours. HOB >30 Special Instructions Continue Vancomycin, Fluconazole and Meropenem until 06/20/19 Continue nasal cannula at 2L during the day. BiPAP 15/8 QHS. Titrate O2 to keep sats >92% For Congestive Heart Failure Reminder Report to your physician any weight gain of 5 pounds or more in one week. Joseph Durán D.O. Jun 16, 2019 14:22
--- NOTE | 2019-06-16 15:39 | General Progress Note ---
Assessment/Plan Problem List: (1) Severe sepsis ICD Codes: A41.9 - Sepsis, unspecified organism; R65.20 - Severe sepsis without septic shock SNOMED: 58569256 (2) Acute on chronic respiratory failure with hypoxia and hypercapnia ICD Codes: J96.21 - Acute and chronic respiratory failure with hypoxia; J96.22 - Acute and chronic respiratory failure with hypercapnia SNOMED: 96814853514214 (3) Tachycardia ICD Codes: R00.0 - Tachycardia, unspecified SNOMED: 2869054 (4) Fever ICD Codes: R50.9 - Fever, unspecified SNOMED: 754211374 (5) CHF (congestive heart failure) ICD Codes: I50.9 - Heart failure, unspecified SNOMED: 18574373 (6) Iron deficiency anemia ICD Codes: D50.9 - Iron deficiency anemia, unspecified SNOMED: 95876874 (7) GERD (gastroesophageal reflux disease) ICD Codes: K21.9 - Gastro-esophageal reflux disease without esophagitis SNOMED: 813137979 (8) HTN (hypertension) ICD Codes: I10 - Essential (primary) hypertension SNOMED: 86921241 (9) Hypothyroid ICD Codes: E03.9 - Hypothyroidism, unspecified SNOMED: 94757911 (10) Pneumonia ICD Codes: J18.9 - Pneumonia, unspecified organism SNOMED: 399034925 (11) Ulcer of right heel ICD Codes: L97.419 - Non-pressure chronic ulcer of right heel and midfoot with unspecified severity SNOMED: 956120535 Status: unchanged Assessment/Plan: Dwayne Gibson is a 54 yo man with PMH of Down's syndrome (nonverbal and bedbound at baseline), CHF (unknown EF), HTN, HLD, iron deficiency anemia, hypothyroid, GERD, with JANETTE 1 cm2, and bilateral foot pressure ulcers who presented from [facility] with fever, cough, and hypoxia, found with Tm 100.5, leukocytosis with left shift, and CXR suggestive of possible bilateral infiltrate, admitted for acute on chronic hypoxemic respiratory failure and sepsis 2/2 HCAP. #Acute hypoxemic/hypercapnic respiratory failure 2/2 MRSA and Naina HCAP and bilateral pleural effusions- Improving overall #Sepsis 2/2 HCAP -septic 06/09/19 (Heart rate, Temp 101.7) -resolved #Bilateral pleural effusions - stable > Tm 100.5 on admission, WBC 20.5 with bands, RR to 30s, tachycardic to 130s > Lactate 1.2 > ABG on admission 7.4/39//24 > BCX negative to date > F/U sputum CX > ESR 119, CRp 29 > S/p IVF NS 30cc/kg sepsis bolus and gentle continuous D5NS IVF. HL IVF 06/05 given increased PVC on CXR and worsening respiratory failure. > Venous duplex negative for DVT > CXR 06/01/19 with worsening right sided pleural effusion, 06/06 CXR with mild improvement noted and reviewed, 06/10, unchanged, 06/11 unchanged > CT chest performed showing bilateral pneumonia and moderate pleural effusions >sputum culture: normal shoshana, though after antibiotics initiated > UA not overtly suggestive of UTI > Ct chest noncontrast showing bilateral pleural effusions > urine legionella negative -continue vanc per pharm until 06/20/19. -Continue meropenem until 06/20/19 - Continue diflucan per ID (06/09 - ) end date 06/20/19 -f/u cxr periodically -Discontinue zosyn 4.5gm IV q6hrs (05/30- 06/09) - stopped amikacin per infectious disease (06/09 - 06/13 ) - Wean oxygen to keep O2 sat >/=92%. Continues intermittent BiPAP and nonrebreather. 2-4L nasal cannula during the day - Pulm/crit care consulted, appreciate recs. Nebs scheduled q4hrs with suction q4hrs. - OK for transfer to subacute when stable - Infectious disease consulted Dr. Serrano. Appreciate recommendations - Appreciate general surgery recommendations: Dr. Ruffin - Tylenol 650mg PO q6hrs PRN pain or fever - Duonebs #Dysphasia #Goals of care > Patient removed NG tube overnight (06/11/19) > s/p PEG 06/12/[address] care and trials as he used to be able to eat 100 % with assistance at SNF -Appreciate ST recommendations - video swallow on 06/11/19 - failed -Previous extensive discussion with medical decision-maker Mr. Sheriff, regarding reversal of CODE STATUS to full code for procedure. Mr. Sheriff was okay with a temporary reversal. Also discussed the option of hospice given that the patient has had recurrent hospitalizations for the same problem ( aspiration pneumonia) over the past couple years. Mr. Sheriff would still like to proceed with the PEG. PEG placed 06/12 -Will reverse CODE STATUS to DNR DNI after procedure -continue PEG feeds #skin breakdown around nares bilaterally from patient movement of HFNC - improving -Can cautiously restart nasal cannula. No signs of ulcer. Patient will not keep on the facemask so need to try a nasal cannula -Appreciate wound care recs #hx HTN but now requiring PRN midodrine at SNF for intermittent hypotension #hx HFpEF (LVEF 55%), with most recent TTE on 05/29/19 showing EF 40-45% #hx #hx HLD - EKG with sinus tachycardia, TWI in lateral leads (no prior in chart for comparison). Troponin negative on admission. Low suspicion for acute ACS - Continue home midodrine 5mg PO TID PRN SBP<90 - Can resume home statin once able to tolerate PO - holding CLARICE-I, Beta Sadiq given intermittent hypotension - Appreciate cardiology recommendations: Dr. Owen - consider spot lasix dose if fluid overload is noted. ( done 06/05 ). Pro-BNP downtrending. #Metabolic Encephalopathy in setting of sepsis and underlying Down's syndrome - appears to be back to baseline - Baseline nonverbal and bedbound - Limit sedating medications as able #Mild transaminitis - resolved #Hepatitis B surface antigen positive. Appears to have acute hepatitis B infection > Ultrasound unremarkable > Hepatitis IgM core ab positive, surface Ab negative, BE ab positive - AST 38 and ALT 100 on admission, -Check further hepatitis B serologies, f/u hepatitis B DNA -Will need outpatient hepatotology follow up #Chronic hyponatremia - improving - Na 134 on admission, now 136 - Per records from SNF, Na was 132 on 05/05/19 - Monitor BMP #hx Hypothyroid - TSH 3.7 -Levothyroxine 25 mg IV daily. Will switch to p.o. once patient able to tolerate #hx GERD - Pepcid for home omeprazole #hx iron deficiency anemia - H/H stable - Continue home ferrous sulfate 325mg PO daily #Right heel wound - Present on admission - Appreciate wound care/surgery consult - Wound care as per recs # Thrombocytosis with platelets of 541,000 most likely reactive. - Monitor #hypokalemia - replete as needed FEN IVF: none DVT ppx: Heparin subq GI ppx: Pepcid Code Status: DNR/DNI with limited interventions Diet: Tube feedings, Bolus since 06/08/19 Dispo: To [facility] tomorrow. BiPAP not available today Reason for continued hospitalization: Acute hypoxic respiratory failure, dysphagia. Placement 29 minutes spent on this encounter. Discussed with RN, pulmonology. > 50% spent on counseling and care coordination. Time of note may not reflect time patient was seen. Subjective Date patient seen: Jun 16, 2019 ROS Limited/Unobtainable: Yes Allergies: Coded Allergies: KETAMINE (Verified Allergy, Unknown, 05/29/19) NSAIDS (NON-STEROIDAL ANTI-INFLAMMA (Verified Allergy, Unknown, 05/29/19) Subjective No acute events overnight per nursing. Patient on BiPAP overnight. Nasal cannula 2 to 4 L during the day saturating 95 to 100%. Patient tolerating tube feeds well. Further subjective history unable to be obtained as patient is nonverbal Objective Last 24 Hour Vital Signs Date Time Temp Pulse Resp B/P (MAP) Pulse Ox O2 Delivery O2 Flow Rate FiO2 06/16/19 12:00 100.2 96 21 92/53 (66) 06/16/19 10:55 106 23 98 Nasal Cannula 4.0 36 102 20 92 06/16/19 09:00 Nasal Cannula 4.0 06/16/19 08:19 96 Nasal Cannula 4.0 36 06/16/19 08:00 99.8 102 25 94/54 (67) 96 06/16/19 07:33 107 28 96 Nasal Cannula 4.0 36 98 25 97 06/16/19 07:18 98 25 97 06/16/19 05:39 90 30 96 Full Face 35 06/16/19 04:00 97.6 97 30 94/50 (65) 94 06/16/19 03:40 Full Face 06/16/19 03:40 102 40 98 Bi-Pap 35 06/16/19 03:25 101 37 98 Facial 35 06/16/19 03:25 101 37 98 Bi-Pap 35 06/16/19 00:43 105 34 97 Facial 35 06/16/19 00:00 98.7 103 29 96/47 (63) 94 06/15/19 23:24 92 32 98 Bi-Pap 35 06/15/19 23:09 91 31 96 Facial 35 06/15/19 23:09 91 31 96 Bi-Pap 35 06/15/19 22:00 5.0 06/15/19 20:25 Nasal Cannula 5.0 06/15/19 20:00 98.9 109 25 93/54 (67) 94 06/15/19 19:09 82 18 94 Room Air 21 06/15/19 19:09 85 18 94 Room Air 21 82 18 94 06/15/19 19:09 94 Room Air 21 06/15/19 16:10 85 18 94 Room Air 21 80 18 90 06/15/19 16:00 98.5 83 20 126/80 (95) 97 Intake and Output 06/15/19 06/16/19 19:00 07:00 Intake Total 885 ml 920 ml Output Total 600 ml Balance 285 ml 920 ml Free Water 100 ml 200 ml IV Total 100 ml Tube Feeding 685 ml 720 ml Output Urine Total 600 ml # Voids 3 Laboratory Tests 06/15/19 17:05: White Blood Count 10.5, Red Blood Count 3.44L, Hemoglobin 11.3L, Hematocrit 32.0L, Mean Corpuscular Volume 93, Mean Corpuscular Hemoglobin 32.7H, Mean Corpuscular Hemoglobin Concent 35.2, Red Cell Distribution Width 11.6, Platelet Count 376, Mean Platelet Volume 6.1L, Neutrophils (%) (Auto) 66.4, Lymphocytes ( %) (Auto) 24.8, Monocytes (%) (Auto) 5.9, Eosinophils (%) (Auto) 1.4, Basophils (%) (Auto) 1.6, Sodium Level 138, Potassium Level 4.0, Chloride Level 102, Carbon Dioxide Level 27, Anion Gap 9, Blood Urea Nitrogen 16, Creatinine 0.9, Estimat Glomerular Filtration Rate > 60, Glucose Level 97, Calcium Level 8.9, Total Bilirubin 0.4, Aspartate Amino Transf (AST/SGOT) 57H, Alanine Aminotransferase (ALT/SGPT) 95H, Alkaline Phosphatase 79, Total Protein 7.7, Albumin 2.2L, Globulin 5.5, Albumin/Globulin Ratio 0.4L 06/16/19 05:43: White Blood Count 9.9, Red Blood Count 3.76L, Hemoglobin 12.3L, Hematocrit 35.8L , Mean Corpuscular Volume 95, Mean Corpuscular Hemoglobin 32.6H, Mean Corpuscular Hemoglobin Concent 34.2, Red Cell Distribution Width 12.5, Platelet Count 375, Mean Platelet Volume 6.0L, Neutrophils (%) (Auto) 71.1, Lymphocytes ( %) (Auto) 19.8L, Monocytes (%) (Auto) 6.4, Eosinophils (%) (Auto) 1.3, Basophils (%) (Auto) 1.4, Pro-B-Type Natriuretic Peptide 628H Height (Feet): 5 Height (Inches): 1.00 Weight (Pounds): 124 General Appearance: WD/WN, no apparent distress, alert EENT: PERRL/EOMI, normal ENT inspection Neck: non-tender, normal alignment, supple Cardiovascular: normal peripheral pulses, normal rate, regular rhythm, no JVD Respiratory/Chest: chest wall non-tender, lungs clear, normal breath sounds Abdomen: normal bowel sounds, non tender, soft, other - PEG tube in place area is clean dry and intact Extremities: normal range of motion, non-tender, normal inspection Edema: other - No lower extremity edema bilaterally 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 Jun 16, 2019 15:39
--- NOTE | 2019-06-16 15:50 | Discharge Summary ---
Discharge Summary Hospital Course Date of Admission May 29, 2019 at 19:59 Date of Discharge 06/16/19 Admitting Diagnosis pneumonia HPI Dwayne Gibson is a 54 year old male who was admitted on May 29, 2019 at 19:59 for Pneumonia Consultations Pulmonology, Infectious disease, Hospital Course Dwayne Gibson is a 54 yo man with PMH of Down's syndrome (nonverbal and bedbound at baseline), CHF (unknown EF), HTN, HLD, iron deficiency anemia, hypothyroid, GERD, , and bilateral foot pressure ulcers who presented from [facility] with fever and hypoxia. Discussed with staff at [facility], patient noted with cough (mostly non productive), increased RR, and fever Tm 100.5 at facility yesterday. Patient usually is on NC oxygen baseline 2-4L, mostly using 2L as needed. However, patient noted to be hypoxic to 82% on 2L yesterday, requiring increased NC oxygen. Unable to obtain history from patient as patient nonverbal at baseline. In the ED, patient noted with fever Tm 100.5, tachycardic to 130s, tachypnic to 30s, and requiring 4L NC to keep saturation >92%. Labs notable for leukocytosis 20.5 with 9 bands, H/H 12.3/34.3, sodium 134, BUN/Cr 9/0.6, lactate 1.2, AST 38, ALT 100, negative troponin, BNP 914, ABG 7.4/39/73/24. UA with 3+protein, 2+blood, 1+leuk est, 2-4RBC, not overtly indicative of infection. CXR showed L>R bibasilar opacities. The patient was admitted for severe sepsis secondary to presumed hospital- acquired pneumonia. The patient was on and off BiPAP and required midodrine TID PRN to support blood pressure. CT chest was performed which showed small to moderate bilateral pleural effusions and bilateral consolidations. Venous duplex ultrasound was negative for DVTs. TTE showed an EF of 40%, with no focal wall motion abnormalities. Patient was initially on vancomycin, Zosyn, and amikacin from 05/30 until 06/09. Since patient was not improving antibiotics were expanded to meropenem, vancomycin, and Diflucan. Sputum culture grew MRSA and Naina. Patient was titrated down to nasal cannula of 2- 4L during the day and BiPAP 15/8 at night. The patient will be continued on these antibiotics until 06/20/19. Cardiology was consulted who did not recommend BB, CLARICE-I or lasix given intermittent use of midodrine. Patient continued to fail swallow evaluations. An extensive discussion occurred with patient's medical decision maker his Cousin and decided to pursue PEG tube. PEG tube was placed on 06/12/2019 and patient tolerated tube feeds. If the patient continues to fail swallow evaluations per cousin would like to remove the PEG tube and change the patient to hospice. For now he would like to continue full treatment. Patient incidentally found to have acute hepatitis B infection. See below. LFTs normal. Patient needs outpatient follow-up with liver clinic. Hepatitis B DNA still pending on discharge. The patient is medically stable to be transferred to [facility] on nasal cannula 2-4L during the day and BiPAP 15/8 QHS. Titrate to keep Sats >92% #Acute hypoxemic/hypercapnic respiratory failure 2/2 MRSA and Naina HCAP and bilateral pleural effusions- Improving overall #Sepsis 2/2 HCAP -septic 06/09/19 (Heart rate, Temp 101.7) -resolved #Bilateral pleural effusions - stable > Tm 100.5 on admission, WBC 20.5 with bands, RR to 30s, tachycardic to 130s > Lactate 1.2 > ABG on admission 7.4/39//24 > BCX negative to date > F/U sputum CX > ESR 119, CRp 29 > S/p IVF NS 30cc/kg sepsis bolus and gentle continuous D5NS IVF. HL IVF 06/05 given increased PVC on CXR and worsening respiratory failure. > Venous duplex negative for DVT > CXR 06/01/19 with worsening right sided pleural effusion, 06/06 CXR with mild improvement noted and reviewed, 06/10, unchanged, 06/11 unchanged > CT chest performed showing bilateral pneumonia and moderate pleural effusions >sputum culture: normal shoshana, though after antibiotics initiated > UA not overtly suggestive of UTI > Ct chest noncontrast showing bilateral pleural effusions -continue vanc per pharm until 06/20/19. -Continue meropenem until 06/20/19 - Continue diflucan per ID (06/09 - ) end date 06/20/19 -f/u cxr periodically -Discontinue zosyn 4.5gm IV q6hrs (05/30- 06/09) - stopped amikacin per infectious disease (06/09 - 06/13 ) - Wean oxygen to keep O2 sat >/=92%. Continues intermittent BiPAP and nonrebreather - Pulm/crit care consulted, appreciate recs. Nebs scheduled q4hrs with suction q4hrs. - OK for transfer to subacute when stable - Infectious disease consulted Dr. Serrano. Appreciate recommendations - Appreciate general surgery recommendations: Dr. Ruffin - Tylenol 650mg PO q6hrs PRN pain or fever - Duonebs - follow up legionella, urine (sent 06/11/19) #Dysphasia #Goals of care > Patient removed NG tube overnight (06/11/19) > s/p PEG 06/12/[address] care and trials as he used to be able to eat 100 % with assistance at SNF -Appreciate ST recommendations - video swallow on 06/11/19 - failed -Previous extensive discussion with medical decision-maker Mr. Sheriff, regarding reversal of CODE STATUS to full code for procedure. Mr. Sheriff was okay with a temporary reversal. Also discussed the option of hospice given that the patient has had recurrent hospitalizations for the same problem ( aspiration pneumonia) over the past couple years. Mr. Sheriff would still like to proceed with the PEG. PEG placed 06/12 -Will reverse CODE STATUS to DNR DNI after procedure -continue PEG feeds #skin breakdown around nares bilaterally from patient movement of HFNC - improving -Can cautiously restart nasal cannula. No signs of ulcer. Patient will not keep on the facemask so need to try a nasal cannula -Appreciate wound care recs #hx HTN but now requiring PRN midodrine at SNF for intermittent hypotension #hx HFpEF (LVEF 55%), with most recent TTE on 05/29/19 showing EF 40-45% #hx #hx HLD - EKG with sinus tachycardia, TWI in lateral leads (no prior in chart for comparison). Troponin negative on admission. Low suspicion for acute ACS - Continue home midodrine 5mg PO TID PRN SBP<90 - Can resume home statin once able to tolerate PO - holding CLARICE-I, Beta Sadiq given intermittent hypotension - Appreciate cardiology recommendations: Dr. Owen - consider spot lasix dose if fluid overload is noted. ( done 06/05 ). Pro-BNP downtrending. #Metabolic Encephalopathy in setting of sepsis and underlying Down's syndrome - appears to be back to baseline - Baseline nonverbal and bedbound - Limit sedating medications as able #Mild transaminitis - resolved #Hepatitis B surface antigen positive. Appears to have acute hepatitis B infection > Ultrasound unremarkable > Hepatitis IgM core ab positive, surface Ab negative, BE ab positive - AST 38 and ALT 100 on admission, -Check further hepatitis B serologies, f/u hepatitis B DNA -Will need outpatient hepatotology follow up #Chronic hyponatremia - improving - Na 134 on admission, now 136 - Per records from [facility], Na was 132 on 05/05/19 - Monitor BMP #hx Hypothyroid - TSH 3.7 -Levothyroxine 25 mg IV daily. Will switch to p.o. once patient able to tolerate #hx GERD - Pepcid for home omeprazole #hx iron deficiency anemia - H/H stable - Continue home ferrous sulfate 325mg PO daily #Right heel wound - Present on admission - Appreciate wound care/surgery consult - Wound care as per recs # Thrombocytosis with platelets of 541,000 most likely reactive. - Monitor #hypokalemia - replete as needed FEN IVF: none DVT ppx: Heparin subq GI ppx: Pepcid Code Status: DNR/DNI with limited interventions Diet: Tube feedings, jevity 1.2 @ 55 cc/hr with FWF 100cc Q8hr Dispo: [facility] Physical Exam Vitals: Temperature 99.7, pulse 92, respirations 29, BP 90/57, 97% on 4L nasal cannula General: WDWN male in NAD, alert in NAD HEENT: Normocephalic cephalic atraumatic, pupils equal round reactive to light and accommodation, nares patent and no symmetrical, no tonsillar exudates, mucous membranes moist CV: Regular rate regular rhythm, no murmurs, rubs, or gallops Pulm: Lungs clear to auscultation bilaterally. No wheezes, rhonchi, or rales GI: Soft, nontender, nondistended, bowel sounds present. PEG tube intact, area is C/D/I Neuro: CN 2-12 intact bilaterally, no focal signs. Ext: No lower extremity edema bilaterally Skin: no rashes lesions or ulcers Msk: Joints symmetrical in upper extremity and lower extremity bilaterally, no joint swelling. Lymph: No lymphadenopathy in upper extremity and lower extremity >30 minutes spent on this encounter. Discussed with RN, pulmonology, and case management. > 50% spent on counseling and care coordination. Time of note may not reflect time patient was seen. Discharge Condition Upon Discharge: stable Discharge Disposition Patient was discharged to [facility] Discharge Diagnoses: (1) Acute and chronic respiratory failure with hypoxia (2) Acute on chronic respiratory failure with hypoxia and hypercapnia (3) Severe sepsis (4) Pneumonia (5) HLD (hyperlipidemia) (6) Hypothyroid (7) HTN (hypertension) (8) GERD (gastroesophageal reflux disease) (9) Iron deficiency anemia (10) CHF (congestive heart failure) (11) Down's syndrome (12) Aortic stenosis (13) Fever (14) Tachycardia Discharge Instructions Discharge Instructions Additional Diet Information: Tube feeding. Jevity 1.2, 55 cc/hr with FWF 100cc every 8 hours. HOB >30 Joseph Durán D.O. Jun 16, 2019 15:50
[2019-06-16 16:00] VITALS: BP 89/53
[2019-06-16] MEDS ORDERED: Acetaminophen 650mg/20.3ml NG PRN (19:30)
[2019-06-16 20:00] VITALS: BP 150/94
[2019-06-17] VITALS: BP 92/55
[2019-06-17] MEDS: Albuterol/Ipratropium 3ml neb HHN SCH ×3 (03:29→10:58)
[2019-06-17 04:00] VITALS: BP 91/57
[2019-06-17] MEDS: Vancomycin 1gm/D5W 275ml IVPB SCH ×2 (05:59)
[2019-06-17 06:23] LABS: BASOPHILS % (AUTO) 1.7 % (0.0-2.0); HEMATOCRIT 30.9 % (42.0-52.0); HEMOGLOBIN 10.7 G/DL (14.2-18.0); LYMPHOCYTES % (AUTO) 33.5 % (20.0-45.0); MEAN CORPUSCULAR VOLUME 95 FL (80-99); MONOCYTES % (AUTO) 9.1 % (1.0-10.0); NEUTROPHILS % (AUTO) 53.8 % (45.0-75.0); PLATELET COUNT 358 K/UL (150-450); RED BLOOD COUNT 3.26 M/UL (4.70-6.10); RED CELL DISTRIBUTION WIDTH 12.5 % (11.6-14.8); WHITE BLOOD COUNT 8.1 K/UL (4.8-10.8)
[2019-06-17 06:38] LABS: ANION GAP 10 mmol/L (5-15); BLOOD UREA NITROGEN 19 mg/dL (7-18); CALCIUM 8.7 MG/DL (8.5-10.1); CARBON DIOXIDE 27 MMOL/L (21-32); CHLORIDE 100 MMOL/L (98-107); POTASSIUM 3.6 MMOL/L (3.5-5.1); SODIUM 137 MMOL/L (136-145)
[2019-06-17 08:00] VITALS: BP 90/57
[2019-06-17] MEDS: Fluconazole 100mg tab ORAL SCH (09:05)
[2019-06-17] MEDS: Ascorbic Acid 500mg tab NG SCH (09:05)
[2019-06-17] MEDS: Ferrous Sulfate 300 MG/5 ML UDC NG SCH (09:06)
[2019-06-17] MEDS: Docusate 100mg/10ml Liq NG SCH (09:06)
[2019-06-17] MEDS: Vitamin B-12 100mcg tab NG SCH (09:06)
[2019-06-17] MEDS: Zinc Sulfate 220mg cap NG SCH (09:06)
[2019-06-17] MEDS: Heparin 5000 units/ml inj SUBQ SCH (09:08)
--- NOTE | 2019-06-17 10:06 | General Progress Note ---
Assessment/Plan Problem List: (1) Acute and chronic respiratory failure with hypoxia ICD Codes: J96.21 - Acute and chronic respiratory failure with hypoxia SNOMED: 62711871, 527080627 (2) Pneumonia ICD Codes: J18.9 - Pneumonia, unspecified organism SNOMED: 365110070 (3) HTN (hypertension) ICD Codes: I10 - Essential (primary) hypertension SNOMED: 49624738 (4) GERD (gastroesophageal reflux disease) ICD Codes: K21.9 - Gastro-esophageal reflux disease without esophagitis SNOMED: 955505570 (5) Iron deficiency anemia ICD Codes: D50.9 - Iron deficiency anemia, unspecified SNOMED: 02910132 (6) Down's syndrome ICD Codes: Q90.9 - Down syndrome, unspecified SNOMED: 02530989, 809087398 (7) Aortic stenosis ICD Codes: I35.0 - Nonrheumatic aortic (valve) stenosis SNOMED: 40844679 Status: unchanged Assessment/Plan: s/p PEG placement GTF fu labs abx pulm care pending discharge for today Subjective ROS Limited/Unobtainable: No Allergies: Coded Allergies: KETAMINE (Verified Allergy, Unknown, 05/29/19) NSAIDS (NON-STEROIDAL ANTI-INFLAMMA (Verified Allergy, Unknown, 05/29/19) Objective Last 24 Hour Vital Signs Date Time Temp Pulse Resp B/P (MAP) Pulse Ox O2 Delivery O2 Flow Rate FiO2 06/17/19 07:48 93 40 99 Nasal Cannula 4.0 36 90 37 97 06/17/19 07:48 97 Nasal Cannula 4.0 36 06/17/19 05:27 85 97 36 06/17/19 04:00 99.3 92 30 91/57 (68) 97 06/17/19 03:29 85 24 99 Bi-Pap 35 80 18 98 06/17/19 03:29 80 18 98 Full Face 35 06/17/19 00:47 86 19 98 Full Face 35 06/17/19 00:00 100.1 91 24 92/55 (67) 98 06/16/19 23:55 88 25 99 Full Face 35 06/16/19 23:52 88 25 99 Bi-Pap 35 06/16/19 23:37 79 22 95 Nasal Cannula 4.0 36 06/16/19 20:19 50 06/16/19 20:06 Nasal Cannula 4.0 06/16/19 20:00 100.4 70 20 150/94 (112) 97 06/16/19 19:14 90 20 96 Nasal Cannula 4.0 36 06/16/19 18:59 91 20 95 Nasal Cannula 4.0 36 06/16/19 18:59 95 Nasal Cannula 4.0 36 06/16/19 16:00 99.9 82 16 89/53 (65) 94 06/16/19 15:50 90 20 97 Nasal Cannula 4.0 36 88 20 94 06/16/19 12:00 100.2 96 21 92/53 (66) 94 06/16/19 10:55 106 23 98 Nasal Cannula 4.0 36 102 20 92 Intake and Output 06/16/19 06/17/19 18:59 06:59 Intake Total 735 ml 990 ml Balance 735 ml 990 ml Free Water 200 ml 160 ml IV Total 200 ml Tube Feeding 535 ml 630 ml # Voids 3 Laboratory Tests 06/17/19 04:47: White Blood Count 8.1, Red Blood Count 3.26L, Hemoglobin 10.7L, Hematocrit 30.9L , Mean Corpuscular Volume 95, Mean Corpuscular Hemoglobin 32.7H, Mean Corpuscular Hemoglobin Concent 34.5, Red Cell Distribution Width 12.5, Platelet Count 358, Mean Platelet Volume 6.3L, Neutrophils (%) (Auto) 53.8, Lymphocytes ( %) (Auto) 33.5, Monocytes (%) (Auto) 9.1, Eosinophils (%) (Auto) 2.0, Basophils (%) (Auto) 1.7, Sodium Level 137, Potassium Level 3.6, Chloride Level 100, Carbon Dioxide Level 27, Anion Gap 10, Blood Urea Nitrogen 19H, Creatinine 1.0, Estimat Glomerular Filtration Rate > 60, Glucose Level 101, Calcium Level 8.7 Height (Feet): 5 Height (Inches): 1.00 Weight (Pounds): 117 General Appearance: no apparent distress EENT: normal ENT inspection Neck: supple Cardiovascular: normal rate Respiratory/Chest: decreased breath sounds Abdomen: normal bowel sounds, non tender, soft Extremities: non-tender Lewis Rubio MD Jun 17, 2019 10:06
[2019-06-17] MEDS ORDERED: Fleet's Mineral Oil Enema RECTAL SCH (10:45)
[2019-06-17 12:00] VITALS: BP 104/69
[2019-06-17] MEDS ORDERED: Fleet's Enema 133ml RECTAL SCH (12:00)
[2019-06-17] MEDS ORDERED: Tubing IV Secondary IV ONE (12:57)
--- NOTE | 2019-06-17 17:13 | Pulmonology Progress Note ---
Assessment/Plan Problems: (1) Pneumonia (2) Acute and chronic respiratory failure with hypoxia (3) Severe sepsis (4) Fever (5) Down's syndrome (6) Tachycardia (7) Hypothyroid (8) HLD (hyperlipidemia) (9) HTN (hypertension) (10) GERD (gastroesophageal reflux disease) (11) Iron deficiency anemia (12) CHF (congestive heart failure) Assessment/Plan Problem List: 1. HCAP/BLL PNA, likely aspiration S/P treatment 2. Hypercapnic hypoxemic respiratory failure. 3. Down syndrome. 4. Small/mod b effusions 5. HTN & Hyperlipidemia 6. Gastroesophageal reflux disease. 7. Decubitus ulcers 8. Dysphagia S/P GT Plan: -Optimize pulmonary hygiene/mobilize as tolerated -BiPAP 12/5 qhs and prn -PRN O2 -cont abx per ID -monitor effusions -TF's -DNAR/DNI -Consider palliative care eval -Dispo planning to SNF Case d/w PMD Subjective Allergies: Coded Allergies: KETAMINE (Verified Allergy, Unknown, 05/29/19) NSAIDS (NON-STEROIDAL ANTI-INFLAMMA (Verified Allergy, Unknown, 05/29/19) Subjective Seen this am - late entry AFVSS on NC Events reviewed Awaiting transfer No distress no SOB no cough Objective Last 24 Hour Vital Signs Date Time Temp Pulse Resp B/P (MAP) Pulse Ox O2 Delivery O2 Flow Rate FiO2 06/17/19 12:00 99.3 97 29 104/69 (81) 98 06/17/19 10:59 92 22 99 Nasal Cannula 4.0 36 89 22 98 06/17/19 09:00 Nasal Cannula 4.0 06/17/19 08:00 99.7 92 29 90/57 (68) 97 06/17/19 07:48 93 40 99 Nasal Cannula 4.0 36 90 37 97 06/17/19 07:48 97 Nasal Cannula 4.0 36 06/17/19 05:27 85 97 36 06/17/19 04:00 99.3 92 30 91/57 (68) 97 06/17/19 03:29 85 24 99 Bi-Pap 35 80 18 98 06/17/19 03:29 80 18 98 Full Face 35 06/17/19 00:47 86 19 98 Full Face 35 06/17/19 00:00 100.1 91 24 92/55 (67) 98 06/16/19 23:55 88 25 99 Full Face 35 06/16/19 23:52 88 25 99 Bi-Pap 35 06/16/19 23:37 79 22 95 Nasal Cannula 4.0 36 06/16/19 20:19 50 06/16/19 20:06 Nasal Cannula 4.0 06/16/19 20:00 100.4 70 20 150/94 (112) 97 06/16/19 19:14 90 20 96 Nasal Cannula 4.0 36 06/16/19 18:59 91 20 95 Nasal Cannula 4.0 36 06/16/19 18:59 95 Nasal Cannula 4.0 36 Intake and Output 06/16/19 06/17/19 19:00 07:00 Intake Total 720 ml 945 ml Balance 720 ml 945 ml Free Water 200 ml 160 ml IV Total 200 ml Tube Feeding 520 ml 585 ml # Voids 3 General Appearance: no acute distress, cachetic HEENT: normocephalic, atraumatic, anicteric, mucous membranes moist Respiratory/Chest: chest wall non-tender, lungs clear, normal breath sounds, no respiratory distress, no accessory muscle use Cardiovascular: normal peripheral pulses, normal rate, regular rhythm Abdomen: normal bowel sounds, soft, non tender, no organomegaly, non distended , no mass, other - GT CDI Extremities: no cyanosis, no clubbing, no edema Laboratory Tests 06/17/19 04:47: White Blood Count 8.1, Red Blood Count 3.26L, Hemoglobin 10.7L, Hematocrit 30.9L , Mean Corpuscular Volume 95, Mean Corpuscular Hemoglobin 32.7H, Mean Corpuscular Hemoglobin Concent 34.5, Red Cell Distribution Width 12.5, Platelet Count 358, Mean Platelet Volume 6.3L, Neutrophils (%) (Auto) 53.8, Lymphocytes ( %) (Auto) 33.5, Monocytes (%) (Auto) 9.1, Eosinophils (%) (Auto) 2.0, Basophils (%) (Auto) 1.7, Sodium Level 137, Potassium Level 3.6, Chloride Level 100, Carbon Dioxide Level 27, Anion Gap 10, Blood Urea Nitrogen 19H, Creatinine 1.0, Estimat Glomerular Filtration Rate > 60, Glucose Level 101, Calcium Level 8.7 Yovani Luevano MD Jun 17, 2019 17:13
[2019-06-17] MEDS ORDERED: Miralax 17gm pkt ORAL SCH (21:00)
--- NOTE | 2019-06-18 16:48 | Diagnostic Imaging Report ---
Indication: Dysphagia Procedure and findings: A single foreign clerk fluoroscopic image of the neck performed in the lateral projection followed by real-time fluoroscopic video/cine imaging performed in a lateral projection in conjunction with the speech pathologist evaluation. Variable consistencies of barium given per mouth. Findings: Significant abnormalities of both oral and pharyngeal phases of swallowing are demonstrated. Total fluoroscopic time: 234 seconds. Total number of fluoroscopic images obtained: 9 Trace laryngeal penetration with thin liquids and nectar demonstrated. No aspiration identified. Abnormal video swallow. Please refer to speech pathology evaluation for more information.
== END 2019-06-17 12:58 | DRG 871 ==
LOC: EDBD 16:05 → EMR 17:30 → 2E 19:59 → EDBEDREQ 21:36 → 2W 05-30 23:53 → 4E 06-15 06:02
PROC: 0DH63UZ Insertion of Feeding Device into Stomach, Percutaneous Approach (ICD-10-PCS; principal; 2019-06-12 12:36)
DX: A41.02 Sepsis due to Methicillin resistant Staphylococcus aureus (principal); J15.212 Pneumonia due to Methicillin resistant Staphylococcus aureus; J96.21 Acute and chronic respiratory failure with hypoxia; J96.22 Acute and chronic respiratory failure with hypercapnia; G93.41 Metabolic encephalopathy; I50.30 Unspecified diastolic (congestive) heart failure; E87.1 Hypo-osmolality and hyponatremia; I47.1 Supraventricular tachycardia; B16.9 Acute hepatitis B without delta-agent and without hepatic coma; R65.20 Severe sepsis without septic shock; Y95 Nosocomial condition; Q90.9 Down syndrome, unspecified; Z66 Do not resuscitate; I11.0 Hypertensive heart disease with heart failure; D50.9 Iron deficiency anemia, unspecified; E03.9 Hypothyroidism, unspecified; K21.9 Gastro-esophageal reflux disease without esophagitis; I35.0 Nonrheumatic aortic (valve) stenosis; E78.5 Hyperlipidemia, unspecified; L89.619 Pressure ulcer of right heel, unspecified stage; I95.9 Hypotension, unspecified; R13.10 Dysphagia, unspecified; E87.6 Hypokalemia; D47.3 Essential (hemorrhagic) thrombocythemia
CPT/HCPCS: 36415; 36600; 71045; 71250; 74018; 74230; 76705; 80048; 80053; 80150; 80202; 81003; 82150; 82164; 82550; 82553; 82803; 82962; 83605; 83690; 83735; 83880; 84100; 84443; 84484; 85007; 85025; 85610; 85651; 85730; 86140; 86704; 86705; 86707; 86709; 86738; 86803; 87040; 87070; 87081; 87086; 87181; 87205; 87340; 87350; 87516; 87517; 93005; 93306; 93970; 94003; 94150; 94640; 94660; 94664; 96360; 96361; 99285; J2250; J7030; J7620; J8499

== ENCOUNTER 2019-07-28 07:56 | Inpatient (IN) | payer MEDICARE, OTHER ==
[~2019-07-28] VITALS: Ht 162.6 cm; Wt 50.0 kg
[2019-07-28] VITALS (43 sets, daily range): BP systolic 71–126; BP diastolic 35–72
[~2019-07-28 07:56] MED LIST: AMMONIUM LACTA385 GM TP; ASCORBIC ACID500 MG ORAL; ATORVASTATIN CA10 MG ORAL; COMPLETE M9 MG/15 M1 PO; DIFLUCAN100 MG ORAL; DOCUSATE SODIU100 MG ORAL; DULCOLAX10 MG RC; FERROUS SULFAT325 MG PEG; FLEET ENEMA133 ML RECTAL; HEPARIN SO5000 UNIT5 IJ; MEGACE ORA400 MG/10 GT; MERREM1 GM IV; MIDODRINE HCL5 MG PEG; MILK OF MA400 MG/51 PEG; MIRALAX119 GM ORAL; OMEPRAZOLE20 M3 ORAL; OYSTER SHELL C1 EA17 PO; SYNTHROID25 MCG ORAL; SYNTHROID50 MCG ORAL; TRAMADOL HCL50 MG ORAL; VANCOMYCIN1 GM/2002 IV; VENTOLIN HFA18 GM INH; VITAMIN B-1100 M2 NG; VITAMIN B-12100 MCG ORAL; Vanco pharmacy to dose MISC; ZINC SULFATE220 M1 NG
[2019-07-28] MEDS ORDERED: ACETAMINOPHEN325 M1 ORAL (08:11)
[2019-07-28] MEDS ORDERED: FAMOTIDINE20 MG PEG (08:13)
[2019-07-28] MEDS ORDERED: santyl ointment TOPIC (08:17)
[2019-07-28] MEDS ORDERED: SYNTHROID25 MCG PEG (08:20)
[2019-07-28] MEDS ORDERED: SODIUM BICARBO325 MG PO (08:20)
[2019-07-28 08:27] LABS: BASOPHILS % (AUTO) 1.4 % (0.0-2.0); EOSINOPHILS % (AUTO) 0.7 % (0.0-3.0); HEMATOCRIT 32.9 % (42.0-52.0); HEMOGLOBIN 11.7 G/DL (14.2-18.0); LYMPHOCYTES % (AUTO) 41.4 % (20.0-45.0); MEAN CORPUSCULAR VOLUME 90 FL (80-99); MONOCYTES % (AUTO) 10.1 % (1.0-10.0); NEUTROPHILS % (AUTO) 46.5 % (45.0-75.0); PLATELET COUNT 345 K/UL (150-450); RED BLOOD COUNT 3.64 M/UL (4.70-6.10); RED CELL DISTRIBUTION WIDTH 13.4 % (11.6-14.8); WHITE BLOOD COUNT 7.2 K/UL (4.8-10.8)
--- NOTE | 2019-07-28 08:28 | Emergency Room Report ---
History of Present Illness General Chief Complaint: Abnormal Labs Source: Medical Record, EMS Present Illness HPI Patient presents from nursing facility with reports of high sodium level Upon arrival patient also has significantly elevated blood pressure Patient himself is not verbal cannot produce appropriate history This does limit the history of present illness There was no reports of vomiting or diarrhea Unclear regarding any change in medications Allergies: Coded Allergies: KETAMINE (Verified Allergy, Unknown, 05/29/19) NSAIDS (NON-STEROIDAL ANTI-INFLAMMA (Verified Allergy, Unknown, 05/29/19) Patient History Limited by: medical condition Past Medical History: see triage record Reviewed Nursing Documentation: PMH: Agreed; PSxH: Agreed Nursing Documentation-PMH Hx Hypertension: Yes Review of Systems All Other Systems: limited Narrative Other than the ones mentioned in the history of present illness all others are reviewed however they do stay limited due to the patient's mental status Physical Exam Vital Signs Date Time Temp Pulse Resp B/P (MAP) Pulse Ox O2 Delivery O2 Flow Rate FiO2 07/28/19 07:51 98.2 88 16 110/70 (83) 97 Sp02 EP Interpretation: reviewed, normal General Appearance: no apparent distress Head: normocephalic, atraumatic Eyes: bilateral eye PERRL ENT: no angioedema, dry mucus membranes Neck: supple Respiratory: lungs clear, no respiratory distress, no retraction Cardiovascular #1: regular rate, rhythm Gastrointestinal: non tender, soft Musculoskeletal: other - Patient not following commands no obvious limitation with movement of both upper extremities Neurologic: other - Responsive to physical stimuli Skin: no rash Lymphatic: no adenopathy Procedures Critical Care Time Critical Care Time 50 minutes for multiple re-evaluations hypotensive presentation concerning for acute cardiopulmonary arrest not include any procedural time Medical Decision Making Diagnostic Impression: Primary Impression: Severe sepsis Additional Impression: Septic shock ER Course Patient is a fairly complex patient with multiple differential to consideration including but not limited to cardiac cardiopulmonary, infectious process and vascular emergencies Patient is found to be hypotensive and hydration is initiated After significant boluses of hydration patient remained hypotensive and low- dose dopamine was initiated Broad-spectrum antibiotics also initiated Patient has a DO NOT INTUBATE Status however there appears to be Clearance for medications and therefore the dopamine was initiated Sepsis reexamination Time:10:00 VS refer to nursing note cvs: RRR respiratory: improved respiration peripheral pulses: 2+radial cap refill:<2 seconds skin exam: warm, dry, not mottled Labs Test 12/10/19 08:02 07/28/19 09:45 07/28/19 16:40 07/28/19 16:48 White Blood Count 7.2 K/UL (4.8-10.8) Red Blood Count 3.64 M/UL (4.70-6.10) Hemoglobin 11.7 G/DL (14.2-18.0) Hematocrit 32.9 % (42.0-52.0) Mean Corpuscular Volume 90 FL (80-99) Mean Corpuscular Hemoglobin 32.0 PG (27.0-31.0) Mean Corpuscular Hemoglobin Concent 35.5 G/DL (32.0-36.0) Red Cell Distribution Width 13.4 % (11.6-14.8) Platelet Count 345 K/UL (150-450) Mean Platelet Volume 5.8 FL (6.5-10.1) Neutrophils (%) (Auto) 46.5 % (45.0-75.0) Lymphocytes (%) (Auto) 41.4 % (20.0-45.0) Monocytes (%) (Auto) 10.1 % (1.0-10.0) Eosinophils (%) (Auto) 0.7 % (0.0-3.0) Basophils (%) (Auto) 1.4 % (0.0-2.0) Sodium Level 125 MMOL/L (136-145) 135 MMOL/L (136-145) Potassium Level 4.0 MMOL/L (3.5-5.1) 3.8 MMOL/L (3.5-5.1) Chloride Level 91 MMOL/L (98-107) 102 MMOL/L (98-107) Carbon Dioxide Level 28 MMOL/L (21-32) 23 MMOL/L (21-32) Anion Gap 6 mmol/L (5-15) 10 mmol/L (5-15) Blood Urea Nitrogen 16 mg/dL (7-18) 12 mg/dL (7-18) Creatinine 0.7 MG/DL (0.55-1.30) 0.6 MG/DL (0.55-1.30) Estimat Glomerular Filtration Rate > 60 mL/min (>60) > 60 mL/min (>60) Glucose Level 93 MG/DL (74-106) 128 MG/DL (74-106) Lactic Acid Level 0.70 mmol/L (0.4-2.0) Calcium Level 7.6 MG/DL (8.5-10.1) 7.2 MG/DL (8.5-10.1) Total Bilirubin 0.8 MG/DL (0.2-1.0) 0.9 MG/DL (0.2-1.0) Aspartate Amino Transf (AST/SGOT) 228 U/L (15-37) 249 U/L (15-37) Alanine Aminotransferase (ALT/SGPT) 551 U/L (12-78) 615 U/L (12-78) Alkaline Phosphatase 154 U/L (46-116) 141 U/L (46-116) Total Creatine Kinase 36 U/L (26-308) 48 U/L (26-308) Troponin I 0.001 ng/mL (0.000-0.056) 0.041 ng/mL (0.000-0.056) Total Protein 7.8 G/DL (6.4-8.2) 7.9 G/DL (6.4-8.2) Albumin 2.4 G/DL (3.4-5.0) 2.5 G/DL (3.4-5.0) Globulin 5.4 g/dL 5.4 g/dL Albumin/Globulin Ratio 0.4 (1.0-2.7) 0.5 (1.0-2.7) Urine Color Pale yellow Urine Appearance Clear Urine pH 7 (4.5-8.0) Urine Specific [place] 1.005 (1.005-1.035) Urine Protein Negative (NEGATIVE) Urine Glucose (UA) Negative (NEGATIVE) Urine Ketones Negative (NEGATIVE) Urine Blood Negative (NEGATIVE) Urine Nitrite Negative (NEGATIVE) Urine Bilirubin Negative (NEGATIVE) Urine Urobilinogen Normal MG/DL (0.0-1.0) Urine Leukocyte Esterase Negative (NEGATIVE) Pro-B-Type Natriuretic Peptide 185 pg/mL (0-125) Lipase 320 U/L (73-393) Test 07/29/19 03:35 White Blood Count 8.8 K/UL (4.8-10.8) Red Blood Count 3.93 M/UL (4.70-6.10) Hemoglobin 12.6 G/DL (14.2-18.0) Hematocrit 35.1 % (42.0-52.0) Mean Corpuscular Volume 89 FL (80-99) Mean Corpuscular Hemoglobin 32.1 PG (27.0-31.0) Mean Corpuscular Hemoglobin Concent 36.0 G/DL (32.0-36.0) Red Cell Distribution Width 12.5 % (11.6-14.8) Platelet Count 361 K/UL (150-450) Mean Platelet Volume 5.3 FL (6.5-10.1) Neutrophils (%) (Auto) 72.6 % (45.0-75.0) Lymphocytes (%) (Auto) 16.5 % (20.0-45.0) Monocytes (%) (Auto) 9.0 % (1.0-10.0) Eosinophils (%) (Auto) 0.3 % (0.0-3.0) Basophils (%) (Auto) 1.5 % (0.0-2.0) Sodium Level 139 MMOL/L (136-145) Potassium Level 3.2 MMOL/L (3.5-5.1) Chloride Level 108 MMOL/L (98-107) Carbon Dioxide Level 25 MMOL/L (21-32) Anion Gap 6 mmol/L (5-15) Blood Urea Nitrogen 8 mg/dL (7-18) Creatinine 0.5 MG/DL (0.55-1.30) Estimat Glomerular Filtration Rate > 60 mL/min (>60) Glucose Level 123 MG/DL (74-106) Calcium Level 7.2 MG/DL (8.5-10.1) Total Bilirubin 0.8 MG/DL (0.2-1.0) Aspartate Amino Transf (AST/SGOT) 273 U/L (15-37) Alanine Aminotransferase (ALT/SGPT) 601 U/L (12-78) Alkaline Phosphatase 107 U/L (46-116) Total Protein 7.5 G/DL (6.4-8.2) Albumin 2.1 G/DL (3.4-5.0) Globulin 5.4 g/dL Albumin/Globulin Ratio 0.4 (1.0-2.7) Thyroid Stimulating Hormone (TSH) 0.917 uiU/mL (0.358-3.740) Cortisol AM Sample 12.7 UG/DL Labs Test 07/28/19 08:02 Rhythm Strip Diag. Results EP Interpretation: yes Rate: 71 Rhythm: NSR, no PVC's, no ectopy Chest X-Ray Diagnostic Results Chest X-Ray Diagnostic Results : Chest X-Ray Ordered: Yes # of Views/Limited/Complete: 1 View Indication: Chest Pain EP Interpretation: Yes Interpretation: no pneumothorax, other - Bilateral lower lobe atelectasis consider infiltrate Impression: Other - Bilateral lower lobe atelectasis consider infiltrate Electronically Signed by: Vineet Castelan DO CT/MRI/US Diagnostic Results CT/MRI/US Diagnostic Results : Impression CT abdomen pelvisImpression: Limited assessment of the GI tract, due to lack of enteric contrast administration Distended rectum with feces, suspicious for rectal fecal impaction Markedly distended bladder. Mild bladder wall thickening, could indicate cystitis or chronic bladder outlet obstruction Bilateral pulmonary bronchial wall thickening and basilar atelectatic changes Gastrostomy in good position T11 vertebral body compression fracture. In retrospect also evident on prior chest CT 06/03/2019 Small pericardial effusion, not evident on prior chest CT Equivocal trace bilateral pleural fluid Last Vital Signs Date Time Temp Pulse Resp B/P (MAP) Pulse Ox O2 Delivery O2 Flow Rate FiO2 07/28/19 07:51 98.2 88 16 110/70 (83) 97 Status: improved Disposition: ADMITTED INPATIENT Condition: Critical Vineet Castelan DO Jul 28, 2019 08:28
[2019-07-28 08:37] LABS: ANION GAP 6 mmol/L (5-15); BLOOD UREA NITROGEN 16 mg/dL (7-18); CALCIUM 7.6 MG/DL (8.5-10.1); CARBON DIOXIDE 28 MMOL/L (21-32); CHLORIDE 91 MMOL/L (98-107); CREATININE 0.7 MG/DL (0.55-1.30); SODIUM 125 MMOL/L (136-145)
[2019-07-28 08:41] LABS: ALANINE AMINOTRANSFERASE 551 U/L (12-78); ALBUMIN 2.4 G/DL (3.4-5.0); ALBUMIN/GLOBULIN RATIO 0.4 (1.0-2.7); ALKALINE PHOSPHATASE 154 U/L (46-116); ASPARTATE AMINO TRANSFERASE 228 U/L (15-37); BILIRUBIN,TOTAL 0.8 MG/DL (0.2-1.0); CREATINE KINASE 36 U/L (26-308)
[2019-07-28 09:58] LABS: APPEARANCE,URINE CLEAR; BILIRUBIN, URINE NEGATIVE (NEGATIVE); COLOR,URINE PALE YELLOW; GLUCOSE, URINE (UA) NEGATIVE (NEGATIVE); KETONES,URINE NEGATIVE (NEGATIVE); LEUKOCYTE ESTERASE ,URINE NEGATIVE (NEGATIVE); NITRITE,URINE NEGATIVE (NEGATIVE); PH,URINE 7 (4.5-8.0); PROTEIN,URINE NEGATIVE (NEGATIVE); UROBILINOGEN,URINE NORMAL MG/DL (0.0-1.0)
--- NOTE | 2019-07-28 11:02 | Diagnostic Imaging Report ---
Indication: Abdominal pain Technique: Spiral acquisitions obtained through the abdomen and pelvis. No oral contrast utilized, per emergency room physician request No IV contrast utilized, per referring physician request.. Multiplanar reconstructions were generated. Total dose length product 643 mGycm. CTDIvol(s) 12 mGy. Dose reduction achieved using automated exposure control Comparison: None Findings: There is a right hip prosthesis which throws off streak artifact which may obscure pelvic pathology. There is also some image degradation due to respiratory motion artifact in the upper abdomen. Lack of enteric contrast limits assessment of the GI tract. The rectum is distended by stool, measuring 6.7 cm in diameter. No definite wall thickening or perirectal inflammation demonstrated. Considerable dense stool is also seen elsewhere within the colon. No evidence of colonic diverticulosis or diverticulitis. The appendix is normal. No small bowel distention. There is a gastrostomy which appears to be in good position. Lack of IV contrast limits assessment of the solid organs. The liver, gallbladder, bile ducts, pancreas, spleen, adrenals are all unremarkable. There is mild fullness to the bilateral renal collecting systems and ureters. No focal renal parenchymal abnormality. No renal or ureteral calculi demonstrated. The bladder is markedly distended. It demonstrates mild wall thickening. No pelvic mass or adenopathy. The lung bases demonstrate bronchial wall thickening and basilar atelectatic changes as well as possibly some bronchiectasis on the left. There may be trace pleural fluid bilaterally. There is a small anterior wall pericardial effusion which measures up to 7 mm in thickness. The bones demonstrate a compression fracture deformity of the T11 vertebral body. This results in about 30% height loss. This is in retrospect evident also on a prior chest CT of 06/03/2019 Impression: Limited assessment of the GI tract, due to lack of enteric contrast administration Distended rectum with feces, suspicious for rectal fecal impaction Markedly distended bladder. Mild bladder wall thickening, could indicate cystitis or chronic bladder outlet obstruction Bilateral pulmonary bronchial wall thickening and basilar atelectatic changes Gastrostomy in good position T11 vertebral body compression fracture. In retrospect also evident on prior chest CT 06/03/2019 Small pericardial effusion, not evident on prior chest CT Equivocal trace bilateral pleural fluid The CT scanner at [facility] is accredited by the [employer] and the scans are performed using protocols designed to limit radiation exposure to as low as reasonably achievable to attain images of sufficient resolution adequate for diagnostic evaluation.
[2019-07-28] MEDS ORDERED: DOPamine 400mg/250ml 250 ML IV STA (11:15)
[2019-07-28] MEDS ORDERED: Meropenem 1 GM in NS 55 ML IVPB ONE (11:45)
--- NOTE | 2019-07-28 11:59 | Infectious Diseases Prog Note ---
Assessment/Plan Assessment/Plan Full consult dictated: A) 1) sepsis, shock, fevers, possible pneumonia, hypoxia, ams 2) pmh noted 3) allergies - nsaids, ketamine P) 1) meropenem and vancomycin 2) check cultures, labs and chest x-ray 3) d/w Dr. Hernandez 4) thank you Subjective Allergies: Coded Allergies: KETAMINE (Verified Allergy, Unknown, 05/29/19) NSAIDS (NON-STEROIDAL ANTI-INFLAMMA (Verified Allergy, Unknown, 05/29/19) Objective Vital Signs Last 24 Hour Vital Signs Date Time Temp Pulse Resp B/P (MAP) Pulse Ox O2 Delivery O2 Flow Rate FiO2 07/28/19 11:40 86/52 07/28/19 11:40 99.7 66 19 86/52 98 Nasal Cannula 4.0 07/28/19 09:40 99.7 85 24 90/54 97 Nasal Cannula 4.0 07/28/19 09:00 99.6 80 23 89/56 98 Nasal Cannula 4.0 07/28/19 08:30 99.8 88 24 89/54 98 Room Air 4.0 07/28/19 08:00 100.0 90 26 92/45 95 Nasal Cannula 4.0 07/28/19 07:51 98.2 88 16 110/70 (83) 97 Height (Feet): 5 Height (Inches): 4.00 Weight (Pounds): 160 Microbiology Date/Time Source Procedure Growth Status 07/28/19 10:55 Rectal Mucosa Received Laboratory Tests Test 07/28/19 08:02 07/28/19 09:45 White Blood Count 7.2 K/UL (4.8-10.8) Red Blood Count 3.64 M/UL (4.70-6.10) L Hemoglobin 11.7 G/DL (14.2-18.0) L Hematocrit 32.9 % (42.0-52.0) L Mean Corpuscular Volume 90 FL (80-99) Mean Corpuscular Hemoglobin 32.0 PG (27.0-31.0) H Mean Corpuscular Hemoglobin Concent 35.5 G/DL (32.0-36.0) Red Cell Distribution Width 13.4 % (11.6-14.8) Platelet Count 345 K/UL (150-450) Mean Platelet Volume 5.8 FL (6.5-10.1) L Neutrophils (%) (Auto) 46.5 % (45.0-75.0) Lymphocytes (%) (Auto) 41.4 % (20.0-45.0) Monocytes (%) (Auto) 10.1 % (1.0-10.0) H Eosinophils (%) (Auto) 0.7 % (0.0-3.0) Basophils (%) (Auto) 1.4 % (0.0-2.0) Sodium Level 125 MMOL/L (136-145) L Potassium Level 4.0 MMOL/L (3.5-5.1) Chloride Level 91 MMOL/L (98-107) L Carbon Dioxide Level 28 MMOL/L (21-32) Anion Gap 6 mmol/L (5-15) Blood Urea Nitrogen 16 mg/dL (7-18) Creatinine 0.7 MG/DL (0.55-1.30) Estimat Glomerular Filtration Rate > 60 mL/min (>60) Glucose Level 93 MG/DL (74-106) Lactic Acid Level 0.70 mmol/L (0.4-2.0) Calcium Level 7.6 MG/DL (8.5-10.1) L Total Bilirubin 0.8 MG/DL (0.2-1.0) Aspartate Amino Transf (AST/SGOT) 228 U/L (15-37) H Alanine Aminotransferase (ALT/SGPT) 551 U/L (12-78) H Alkaline Phosphatase 154 U/L (46-116) H Total Creatine Kinase 36 U/L (26-308) Troponin I 0.001 ng/mL (0.000-0.056) Total Protein 7.8 G/DL (6.4-8.2) Albumin 2.4 G/DL (3.4-5.0) L Globulin 5.4 g/dL Albumin/Globulin Ratio 0.4 (1.0-2.7) L Urine Color Pale yellow Urine Appearance Clear Urine pH 7 (4.5-8.0) Urine Specific [place] 1.005 (1.005-1.035) Urine Protein Negative (NEGATIVE) Urine Glucose (UA) Negative (NEGATIVE) Urine Ketones Negative (NEGATIVE) Urine Blood Negative (NEGATIVE) Urine Nitrite Negative (NEGATIVE) Urine Bilirubin Negative (NEGATIVE) Urine Urobilinogen Normal MG/DL (0.0-1.0) Urine Leukocyte Esterase Negative (NEGATIVE) Current Medications Medications (Trade) Dose Ordered Sig/Kendra Route PRN Reason Start Time Stop Time Status Last Admin Dose Admin Meropenem 1 gm/ Sodium Chloride 55 ml @ 110 mls/hr Q12HR ONCE IVPB 07/28/19 11:45 07/28/19 12:14 Sodium Chloride 1,000 ml @ 999 mls/hr Q1H1M ONCE IV 07/28/19 11:00 07/28/19 12:00 Vancomycin HCl 1 gm/Dextrose 275 ml @ 183.708 mls/hr ONCE ONCE IVPB 07/28/19 11:45 07/28/19 13:14 Rafia Rand MD Jul 28, 2019 11:59
--- NOTE | 2019-07-28 12:06 | History and Physical ---
History of Present Illness General Date patient seen: Jul 28, 2019 Reason for Hospitalization: Abnormal Labs Present Illness HPI 54-year-old male with down syndrome and previous recent hospitalization in May 2019 for pneumonia brought in by EMS to the emergency department with high sodium, initially with severely elevated blood pressure. He is nonverbal at baseline and not able to provide a history. History obtained from reviewing records and talking to the ED physician. He also has a history of dysphagia s/p PEG and decubitus ulcers. While in the emergency room her BP dropped despite 3L IV NS and was started on dopamine. His labs revealed low serum sodium and transaminitis. CT of the abdomen and pelvis showed a limited study showed some bibasilar atelectasis and compression fractures. The patient was started on broad-spectrum antibiotics with meropenem and Vancomycin PMH: Down's syndrome (nonverbal and bedbound at baseline), diastolic CHF, HTN, HLD, iron deficiency anemia, hypothyroid, GERD, , and bilateral foot pressure ulcers PSH: None documented from SNF records, PEG FH: Unable to obtain given patient nonverbal SH: Lives at SNF, bedbound and nonverbal at baseline Meds/Allergies: Reviewed and reconciled as documented below ROS: Unable to obtain full ROS given patient nonverbal at baseline, otherwise negative except for noted above per chart Allergies: Coded Allergies: KETAMINE (Verified Allergy, Unknown, 05/29/19) NSAIDS (NON-STEROIDAL ANTI-INFLAMMA (Verified Allergy, Unknown, 05/29/19) Medication History Scheduled Famotidine* (Pepcid 20mg tablet*), 20 MG PEG DAILY, (Reported) Ferrous Sulfate* (Ferrous Sulfate*), 325 MG PEG DAILY, (Reported) Heparin Sodium,Porcine (Heparin Sodium), 5,000 UNIT IJ Q12HR, (Reported) Levothyroxine Sodium* (Synthroid*), 50 MCG PEG DAILY, (Reported) Magnesium Hydroxide* (Milk Of Magnesia*), 30 ML PEG DAILY, (Reported) Midodrine* (Proamatine*), 5 MG PEG THREE TIMES A DAY, (Reported) Na Phos,M-B/Na Phos,Di-Ba* (Fleet Enema*), 133 ML RECTAL DAILY, (Reported) Sodium Bicarbonate (Sodium Bicarbonate), 1 GM PO BID, (Reported) [santyl ointment], TOPIC DAILY, (Reported) Scheduled PRN Acetaminophen* (Acetaminophen 325MG Tablet*), 650 MG ORAL Q6H PRN for Prn Headache/Temp > 101, (Reported) Miscellaneous Medications Bisacodyl (Dulcolax), 10 MG RC, (Reported) Megestrol Acetate (Megestrol Acetate), 400 MG GT, (Reported) Discontinued Medications Albuterol Sulfate (Ventolin Hfa), 1 PUFF INH EVERY 6 HOURS, (Reported) Discontinued Reason: MD discontinued med Ammonium Lactate (Ammonium Lactate), 385 GM TP, (Reported) Discontinued Reason: MD discontinued med Ascorbic Acid* (Ascorbic Acid*), 500 MG ORAL DAILY, (Reported) Discontinued Reason: MD discontinued med Atorvastatin Calcium* (Lipitor*), 10 MG ORAL BEDTIME, (Reported) Discontinued Reason: MD discontinued med Calcium Carbonate/Vitamin D3 (Oyster Shell Calcium + D Cplt), 1 EACH PO, ( Reported) Discontinued Reason: MD discontinued med Cyanocobalamin (Vitamin B-12), 100 MCG ORAL DAILY, (Reported) Discontinued Reason: MD discontinued med Docusate Sodium* (Docusate Sodium*), 100 MG ORAL THREE TIMES A DAY, (Reported) Discontinued Reason: MD discontinued med Fluconazole* (Diflucan*), 400 MG ORAL DAILY Discontinued Reason: MD discontinued med Levothyroxine Sodium (Synthroid), 50 MCG ORAL Mon, Wed, Fri, Sun, (Reported) Discontinued Reason: MD discontinued med Levothyroxine Sodium* (Synthroid*), 25 MCG ORAL Tues, Th, Sat, (Reported) Discontinued Reason: Medication dose changed Meropenem (Merrem), 1 GM IV Q8HR Discontinued Reason: MD discontinued med Multivit &Minerals/Ferrous Fum (Complete Multivit-Mineral Liq), 9 MG PO, ( Reported) Discontinued Reason: MD discontinued med Omeprazole (Omeprazole), 20 MG ORAL DAILY, (Reported) Discontinued Reason: MD discontinued med Polyethylene Glycol 3350 (Miralax), 17 GM ORAL BEDTIME Discontinued Reason: MD discontinued med Thiamine Mononitrate (Vitamin B-1), 100 MCG NG DAILY Discontinued Reason: MD discontinued med Tramadol Hcl* (Ultram*), 50 MG ORAL Q6H PRN for For Pain, (Reported) Discontinued Reason: MD discontinued med Vancomycin/Water For Inj (Peg) (Vancomycin 1 Gram/200 ml Bag), 1 GM IV DAILY Discontinued Reason: Therapy completed Zinc Sulfate (Zinc Sulfate*), 220 MG NG DAILY Discontinued Reason: MD discontinued med [Vanco pharmacy to dose], 1 EA MISC DAILY PRN Discontinued Reason: Therapy completed Patient History Healthcare decision maker Resuscitation status Advanced Directive on File Physical Exam Physical Exam Narrative General Appearance: no apparent distress, awake, non verbal Head: normocephalic, atraumatic Eyes: bilateral PERRL ENT: dry mucus membranes Neck: supple, no jvd Respiratory: lungs clear bilaterally, no respiratory distress, no retraction Cardiovascular : regular rate, rhythm, no m/r/g, ext: No edema Gastrointestinal: non tender, soft, +peg, Open blood blister in close proximity to GT . Musculoskeletal: moving extremities, muscle atrophy Neurologic: unable to assess, due to not following commands Skin: no rash. Full thickness pressure injury R Heel. Macerated borders(L) 2.1cm x (W)1.5cm x (D)0.3cm. No odor noted.Surrounding R heel is fluctuant ,non -blanching with additional partially opened wound at plantar aspect. Non-blanchable erythema noted to beth L tibia (L)5cm x (W)2cm..L heel is boggy but blanchable. Non-blanching erythema without induration Sacrococcygeal area. POA Last 24 Hour Vital Signs Date Time Temp Pulse Resp B/P (MAP) Pulse Ox O2 Delivery O2 Flow Rate FiO2 07/28/19 11:55 87/44 07/28/19 11:55 75 19 87/44 98 Nasal Cannula 4.0 07/28/19 11:40 86/52 07/28/19 11:40 99.7 66 19 86/52 98 Nasal Cannula 4.0 07/28/19 11:00 75 20 86/49 97 Nasal Cannula 4.0 07/28/19 10:30 80 20 84/51 97 Nasal Cannula 4.0 07/28/19 10:00 80 20 85/52 97 Nasal Cannula 4.0 07/28/19 09:40 99.7 85 24 90/54 97 Nasal Cannula 4.0 07/28/19 09:00 99.6 80 23 89/56 98 Nasal Cannula 4.0 07/28/19 08:30 99.8 88 24 89/54 98 Room Air 4.0 07/28/19 08:00 100.0 90 26 92/45 95 Nasal Cannula 4.0 07/28/19 07:51 98.2 88 16 110/70 (83) 97 Laboratory Tests Test 07/28/19 08:02 07/28/19 09:45 White Blood Count 7.2 K/UL (4.8-10.8) Red Blood Count 3.64 M/UL (4.70-6.10) L Hemoglobin 11.7 G/DL (14.2-18.0) L Hematocrit 32.9 % (42.0-52.0) L Mean Corpuscular Volume 90 FL (80-99) Mean Corpuscular Hemoglobin 32.0 PG (27.0-31.0) H Mean Corpuscular Hemoglobin Concent 35.5 G/DL (32.0-36.0) Red Cell Distribution Width 13.4 % (11.6-14.8) Platelet Count 345 K/UL (150-450) Mean Platelet Volume 5.8 FL (6.5-10.1) L Neutrophils (%) (Auto) 46.5 % (45.0-75.0) Lymphocytes (%) (Auto) 41.4 % (20.0-45.0) Monocytes (%) (Auto) 10.1 % (1.0-10.0) H Eosinophils (%) (Auto) 0.7 % (0.0-3.0) Basophils (%) (Auto) 1.4 % (0.0-2.0) Sodium Level 125 MMOL/L (136-145) L Potassium Level 4.0 MMOL/L (3.5-5.1) Chloride Level 91 MMOL/L (98-107) L Carbon Dioxide Level 28 MMOL/L (21-32) Anion Gap 6 mmol/L (5-15) Blood Urea Nitrogen 16 mg/dL (7-18) Creatinine 0.7 MG/DL (0.55-1.30) Estimat Glomerular Filtration Rate > 60 mL/min (>60) Glucose Level 93 MG/DL (74-106) Lactic Acid Level 0.70 mmol/L (0.4-2.0) Calcium Level 7.6 MG/DL (8.5-10.1) L Total Bilirubin 0.8 MG/DL (0.2-1.0) Aspartate Amino Transf (AST/SGOT) 228 U/L (15-37) H Alanine Aminotransferase (ALT/SGPT) 551 U/L (12-78) H Alkaline Phosphatase 154 U/L (46-116) H Total Creatine Kinase 36 U/L (26-308) Troponin I 0.001 ng/mL (0.000-0.056) Total Protein 7.8 G/DL (6.4-8.2) Albumin 2.4 G/DL (3.4-5.0) L Globulin 5.4 g/dL Albumin/Globulin Ratio 0.4 (1.0-2.7) L Urine Color Pale yellow Urine Appearance Clear Urine pH 7 (4.5-8.0) Urine Specific [place] 1.005 (1.005-1.035) Urine Protein Negative (NEGATIVE) Urine Glucose (UA) Negative (NEGATIVE) Urine Ketones Negative (NEGATIVE) Urine Blood Negative (NEGATIVE) Urine Nitrite Negative (NEGATIVE) Urine Bilirubin Negative (NEGATIVE) Urine Urobilinogen Normal MG/DL (0.0-1.0) Urine Leukocyte Esterase Negative (NEGATIVE) Microbiology Date/Time Source Procedure Growth Status 07/28/19 10:55 Rectal Mucosa Received Height (Feet): 5 Height (Inches): 4.00 Weight (Pounds): 160 Medications Current Medications Medications (Trade) Dose Ordered Sig/Kendra Route PRN Reason Start Time Stop Time Status Last Admin Dose Admin Meropenem 1 gm/ Sodium Chloride 55 ml @ 110 mls/hr Q12HR ONCE IVPB 07/28/19 11:45 07/28/19 12:14 07/28/19 12:00 Meropenem 1 gm/ Sodium Chloride 100 ml @ 200 mls/hr Q8HR IVPB 07/28/19 14:00 08/02/19 13:59 UNV Vancomycin HCl (Vanco rx to dose) 1 ea DAILY PRN MISC Per rx protocol 07/28/19 12:00 08/27/19 11:59 UNV Vancomycin HCl 1 gm/Dextrose 275 ml @ 183.708 mls/hr ONCE ONCE IVPB 07/28/19 11:45 07/28/19 13:14 Assessment/Plan Status: other - critical Assessment/Plan: 54-year-old male, prison resident Down syndrome, diastolic CHF, hypertension,hyperlipidemia, iron deficiency anemia, hypothyroidism, GERD, aortic stenosis, bilateral foot pressure ulcers, dysphagia s/p PEG presenting with altered mental status and hypoxia being admitted with septic shock likely secondary to pneumonia and possible abdominal source given elevated LFTs, though could be due to hypotension. CT abdomen pelvis without any source for infection. #Shock likely hypovolemic and septic #Healthcare associated pneumonia Aggressive IV fluid hydration. peripheral dopamine. Patient has a midline, may need central line vs picc if bp doesn't improve. Continue home midodrine Broad spectrum antibiotics with vancomycin and meropenem per ID consult . case d /w Dr. Serrano follow up blood and sputum cultures Pulmonary consult with Dr. Luevano. case d/w AM cortisol level #toxic metabolic encephalopathy Monitor mental status, treat sepsis #hypotonic hyponatremia Check serum sodium q6hr to avoid overcorrection after correction of hypovolemia #Abnormal LFTs -right upper quadrant ultrasound -Trend LFTs -If worsening, GI consult # Dysphagia, status post G-tube #GERD Hold tube feeds for now #Down syndrome. #Diastolic CHF- not in exacerbation #hypertension- hypotensive now #hyperlipidemia # hypovolemic Hold BP meds #iron deficiency anemia H/H stable continue to monitor #hypothyroidism -Continue Synthroid, follow up TSH #Bilateral wounds and pressure ulcers to the heels wound care consult with Dr. Ruffin, surgery off loading turning q2 hr VTE ppx: heparin subcutaneous. GI ppx: IV PPI Diet: Hold tube feeds Code status, DNI, however can resuscitate I spent 75 minutes on this patient's case, and 40 mins was dedicated to critical care Critical Care Services performed include: Telemetry Review Hemodynamic measurement interpretation Laboratory data review and interpretation Radiology image review and interpretation Interpretation of ABG's Discussion of patient's care with ICU team, ICU Nursing staff and/or consulting services I spent an additional 35 minutes of non face to face time in reviewing patient' s chart, previous hospital records, prison records. time of this note may not reflect time of encounter. Matty Hernandez M.D. Jul 28, 2019 12:06
[2019-07-28] MEDS: Vancomycin 1 GM in D5W 275 ML IVPB ONE ×2 (12:07→12:47)
[2019-07-28] MEDS ORDERED: HYDROmorphone 1mg/ml Carpuject IVP PRN (12:15)
[2019-07-28] MEDS ORDERED: Albuterol/Ipratropium 3ml neb HHN PRN (12:15)
--- NOTE | 2019-07-28 12:28 | Consultation ---
Consult Note Assessment/Plan DICT # [id number] Yovani Luevano MD Jul 28, 2019 12:28
[2019-07-28] MEDS ORDERED: Lidocaine 1% Plain 30 ml INJ PRN (15:30)
[2019-07-28] MEDS ORDERED: Heparin1,000 units/500ml Premix(Conc:2 units/ml) IV PRN (15:30)
--- NOTE | 2019-07-28 15:35 | Diagnostic Imaging Report ---
Indication: Chest pain Technique: One view of the chest Comparison: 06/14/2019 Findings: Patient is rotated to the right. There is crowding of the vascular markings at the right lung base as well as some basilar atelectasis. Previously demonstrated right basilar infiltrate appears improved, however. There is generalized mild interstitial prominence which appears similar to the previous study. There may be a small amount of pleural fluid bilaterally. Impression: Hypoventilatory exam with right basilar atelectasis Possible generalized mild interstitial congestion, appears similar to prior study 06/14/2019 Possible small bilateral pleural effusions
--- NOTE | 2019-07-28 17:30 | Consultation ---
DATE OF CONSULTATION: 07/28/2019 PULMONARY CONSULTATION CONSULTING PHYSICIAN: Yovani Luevano M.D. REFERRING PHYSICIAN: Matty Hernandez M.D. REASON FOR CONSULTATION: Critical care management and pneumonia. HISTORY OF PRESENT ILLNESS: The patient is a very unfortunate 54-year-old gentleman with history of Down syndrome, dysphagia, PEG, prior pneumonia, decubitus ulcers presenting with respiratory failure, shock, and hypotension. The patient was brought in by EMS to the emergency department with high sodium, initially with elevated blood pressure. He is nonverbal and not able to provide a history. Subsequently, his blood pressure dropped despite multiple boluses of IV fluids. He does not have a white count and was actually hyponatremic on evaluation in the ER. He has transaminitis with elevated alkaline phosphatase. CT of the abdomen and pelvis showed a limited study showed some bibasilar atelectasis and compression fractures. The patient was started on broad-spectrum antibiotics and has been seen by the Infectious Disease service. PAST MEDICAL HISTORY: 1. Down syndrome. 2. CHF. 3. Hypertension. 4. Hyperlipidemia. 5. Iron deficiency anemia. 6. Hypothyroidism. 7. GERD. 8. . 9. Bilateral foot pressure ulcers. 10. Gastrostomy placement. ALLERGIES: Ketamine and NSAIDs. MEDICATIONS: Prior to admission medications reviewed. Current medications unknown. SOCIAL HISTORY: care home resident. No tobacco, alcohol, or drug use. FAMILY HISTORY: Noncontributory. REVIEW OF SYSTEMS: Unobtainable. PHYSICAL EXAMINATION: VITAL SIGNS: Temperature max was 100, blood pressure on peripheral dopamine 86/52, respiratory rate 16, heart rate 66. GENERAL: He is nonverbal, cachectic. HEENT: Normocephalic, atraumatic. Dry mucous membranes. NECK: Supple without lymphadenopathy or JVD. CHEST: Scattered coarse breath sounds. HEART: Regular rate and rhythm. ABDOMEN: Soft, nontender, and nondistended. There is a gastrostomy. EXTREMITIES: No cyanosis, clubbing. He has contractures and wounds. ANCILLARY DATA: Laboratories reviewed. ASSESSMENT: The patient is a very unfortunate 54-year-old male, half-way resident with a history of Down syndrome, CHF, hypertension, hyperlipidemia, iron deficiency anemia, hypothyroidism, GERD, aortic stenosis, bilateral foot pressure ulcers presenting with sepsis likely secondary to pneumonia and possible abdominal source given elevated LFTs and alkaline phosphatase as well though CT of the abdomen was unrevealing. Of utmost importance, discussion of goals of care per my discussion with the ER doctor, the patient is DNI, but otherwise resuscitable. PROBLEM LIST: 1. Systemic inflammatory response syndrome/sepsis. 2. Shock, likely hypovolemic and distributive. 3. Healthcare-associated pneumonia. 4. Abnormal LFTs, concern for abdominal source of sepsis. 5. Dysphagia, status post G-tube. 6. Down syndrome. 7. CHF, hypertension, hyperlipidemia, iron deficiency anemia, hypothyroidism, GERD, aortic stenosis. 8. Bilateral wounds and pressure ulcers. TREATMENT PLAN: 1. Aggressive IV fluid hydration. 2. Agree with peripheral dopamine. 3. The patient has a PICC line, so if alternative pressors are needed, we can start Levophed. 4. Continue Midodrine. 5. Broad-spectrum antimicrobials per Infectious Disease service. 6. Consider right upper quadrant ultrasound. 7. Monitor volumes and renal function. 8. Continue Synthroid, follow up the TSH. 9. Follow up the cortisol level. 10. DVT prophylaxis, heparin subcutaneous. 11. Hold tube feeds until clinically stable. 12. Limited code, Do Not Intubate. 13. Continue to discuss goals of care. Dr. Hernandez, thank you for allowing me to assist in the care of your patient. If I may be of any assistance in the future, please do not hesitate to ask. Yovani Luevano M.D. : DEVIKA JOB#: [id number] CC:
[2019-07-28 17:54] LABS: CREATINE KINASE 48 U/L (26-308)
--- NOTE | 2019-07-28 18:01 | Diagnostic Imaging Report ---
Indication: Abdominal pain Technique: Simon-scale and duplex images of the upper abdomen were obtained Comparison: CT scan of earlier the same day Findings: Gallbladder is unremarkable, without stones, wall thickening, nor pericholecystic fluid. Sonographic Gamez's sign is negative. Common bile duct measures 5 mm in diameter. No intrahepatic biliary ductal dilatation. Liver demonstrates slightly coarsened echogenicity. No focal abnormality. Portal vein and hepatic veins are patent. Pancreas is unremarkable. Spleen is unremarkable. Left kidney measures left cm in length. Right kidney measures 11.2 cm length. Both kidneys demonstrate normal echogenicity. There is mild fullness to the right renal collecting system, and very mild left hydronephrosis No focal abnormality . Non-aneurysmal abdominal aorta . Impression: Negative for gallstones or dilated bile ducts Mild right renal collecting system fullness and mild left hydronephrosis. This is also reported on recent CT scan and may be due to bladder distention Coarsened hepatic echogenicity, consistent with hepatocellular disease but otherwise nonspecific
[2019-07-28] MEDS: DOPamine 400mg/250ml 250 ML IV SCH (20:03)
[2019-07-28] MEDS: Dyna-Hex 2% Top Sol 2oz TOPIC SCH (20:03)
[2019-07-28 20:32] LABS: ALANINE AMINOTRANSFERASE 615 U/L (12-78); ALBUMIN 2.5 G/DL (3.4-5.0); ALBUMIN/GLOBULIN RATIO 0.5 (1.0-2.7); ALKALINE PHOSPHATASE 141 U/L (46-116); ANION GAP 10 mmol/L (5-15); ASPARTATE AMINO TRANSFERASE 249 U/L (15-37); BILIRUBIN,TOTAL 0.9 MG/DL (0.2-1.0); BLOOD UREA NITROGEN 12 mg/dL (7-18); CALCIUM 7.2 MG/DL (8.5-10.1); CARBON DIOXIDE 23 MMOL/L (21-32); CHLORIDE 102 MMOL/L (98-107); CREATININE 0.6 MG/DL (0.55-1.30); POTASSIUM 3.8 MMOL/L (3.5-5.1); SODIUM 135 MMOL/L (136-145)
[2019-07-28] MEDS: Heparin 5000 units/ml inj SUBQ SCH (20:51)
--- NOTE | 2019-07-28 21:13 | Consultation ---
History of Present Illness General Date patient seen: Jul 28, 2019 Chief Complaint: Abnormal Labs Present Illness HPI This is a very unfortunate 54-year-old male with history of Down syndrome, dysphagia, PEG, prior pneumonia, decubitus ulcers presenting with respiratory failure, shock, and hypotension by EMS from care facility and admitted to the intensive care unit for further care and management and work-up. Initial labs identified a sodium of 135 and abnormal LFTs with normal lipase. Surgery was called to evaluate and assist with care and management. Patient seen, patient evaluated, chart reviewed. Patient is received 3 L volume load and responsive thus far. No nausea vomiting fever chills. Unable to obtain history from patient given his baseline medical condition history. Chart reviewed. Imaging noted. Allergies: Coded Allergies: KETAMINE (Verified Allergy, Unknown, 05/29/19) NSAIDS (NON-STEROIDAL ANTI-INFLAMMA (Verified Allergy, Unknown, 05/29/19) Medication History Scheduled Famotidine* (Pepcid 20mg tablet*), 20 MG PEG DAILY, (Reported) Ferrous Sulfate* (Ferrous Sulfate*), 325 MG PEG DAILY, (Reported) Heparin Sodium,Porcine (Heparin Sodium), 5,000 UNIT IJ Q12HR, (Reported) Levothyroxine Sodium* (Synthroid*), 50 MCG PEG DAILY, (Reported) Magnesium Hydroxide* (Milk Of Magnesia*), 30 ML PEG DAILY, (Reported) Midodrine* (Proamatine*), 5 MG PEG THREE TIMES A DAY, (Reported) Na Phos,M-B/Na Phos,Di-Ba* (Fleet Enema*), 133 ML RECTAL DAILY, (Reported) Sodium Bicarbonate (Sodium Bicarbonate), 1 GM PO BID, (Reported) [santyl ointment], TOPIC DAILY, (Reported) Scheduled PRN Acetaminophen* (Acetaminophen 325MG Tablet*), 650 MG ORAL Q6H PRN for Prn Headache/Temp > 101, (Reported) Miscellaneous Medications Bisacodyl (Dulcolax), 10 MG RC, (Reported) Megestrol Acetate (Megestrol Acetate), 400 MG GT, (Reported) Discontinued Medications Albuterol Sulfate (Ventolin Hfa), 1 PUFF INH EVERY 6 HOURS, (Reported) Discontinued Reason: MD discontinued med Ammonium Lactate (Ammonium Lactate), 385 GM TP, (Reported) Discontinued Reason: MD discontinued med Ascorbic Acid* (Ascorbic Acid*), 500 MG ORAL DAILY, (Reported) Discontinued Reason: MD discontinued med Atorvastatin Calcium* (Lipitor*), 10 MG ORAL BEDTIME, (Reported) Discontinued Reason: MD discontinued med Calcium Carbonate/Vitamin D3 (Oyster Shell Calcium + D Cplt), 1 EACH PO, ( Reported) Discontinued Reason: MD discontinued med Cyanocobalamin (Vitamin B-12), 100 MCG ORAL DAILY, (Reported) Discontinued Reason: MD discontinued med Docusate Sodium* (Docusate Sodium*), 100 MG ORAL THREE TIMES A DAY, (Reported) Discontinued Reason: MD discontinued med Fluconazole* (Diflucan*), 400 MG ORAL DAILY Discontinued Reason: MD discontinued med Levothyroxine Sodium (Synthroid), 50 MCG ORAL Mon, Wed, Sat, Sat, (Reported) Discontinued Reason: MD discontinued med Levothyroxine Sodium* (Synthroid*), 25 MCG ORAL Tues, Th, Sat, (Reported) Discontinued Reason: Medication dose changed Meropenem (Merrem), 1 GM IV Q8HR Discontinued Reason: MD discontinued med Multivit &Minerals/Ferrous Fum (Complete Multivit-Mineral Liq), 9 MG PO, ( Reported) Discontinued Reason: MD discontinued med Omeprazole (Omeprazole), 20 MG ORAL DAILY, (Reported) Discontinued Reason: MD discontinued med Polyethylene Glycol 3350 (Miralax), 17 GM ORAL BEDTIME Discontinued Reason: MD discontinued med Thiamine Mononitrate (Vitamin B-1), 100 MCG NG DAILY Discontinued Reason: MD discontinued med Tramadol Hcl* (Ultram*), 50 MG ORAL Q6H PRN for For Pain, (Reported) Discontinued Reason: MD discontinued med Vancomycin/Water For Inj (Peg) (Vancomycin 1 Gram/200 ml Bag), 1 GM IV DAILY Discontinued Reason: Therapy completed Zinc Sulfate (Zinc Sulfate*), 220 MG NG DAILY Discontinued Reason: MD discontinued med [Vanco pharmacy to dose], 1 EA MISC DAILY PRN Discontinued Reason: Therapy completed Patient History Limited by: medical condition History Provided By: Medical Record, PMD Healthcare decision maker RAMBO GALE Resuscitation status Do Not Intubate Advanced Directive on File Past Medical/Surgical History Past Medical/Surgical History: (1) Aortic stenosis (2) Down's syndrome (3) CHF (congestive heart failure) (4) Iron deficiency anemia (5) GERD (gastroesophageal reflux disease) (6) HTN (hypertension) (7) Hypothyroid (8) HLD (hyperlipidemia) (9) Ulcer of right heel (10) Severe sepsis (11) Acute on chronic respiratory failure with hypoxia and hypercapnia (12) Acute and chronic respiratory failure with hypoxia (13) Septic shock (14) Abnormal laboratory test result Review of Systems ROS Narrative Unable to obtain given patient's baseline medical condition Physical Exam General Appearance: mild distress Lines, tubes and drains: other - Patient has left upper extremity midline in the medial arm HEENT: atraumatic, anicteric Neck: supple, normal inspection Respiratory/Chest: no respiratory distress, no accessory muscle use, decreased breath sounds Cardiovascular/Chest: normal rate, tachycardia Abdomen: soft, no organomegaly, no mass, feeding tube, other Extremities: normal inspection Skin Exam: warm/dry Neurologic: alert Last 24 Hour Vital Signs Date Time Temp Pulse Resp B/P (MAP) Pulse Ox O2 Delivery O2 Flow Rate FiO2 07/28/19 20:03 118/55 07/28/19 20:00 97.8 70 18 118/55 (76) 100 07/28/19 20:00 4.0 07/28/19 20:00 Nasal Cannula 4.0 07/28/19 19:11 121 19 97 Nasal Cannula 4.0 36 07/28/19 19:11 97 Nasal Cannula 4.0 36 07/28/19 19:00 76 20 107/39 (61) 99 07/28/19 18:45 95 21 105/53 (70) 96 07/28/19 18:30 59 19 106/61 (76) 100 07/28/19 18:15 93 19 112/48 (69) 100 07/28/19 18:00 68 20 92/60 (71) 100 07/28/19 17:45 71 18 111/58 (75) 100 07/28/19 17:30 76 18 126/68 (87) 100 07/28/19 17:15 81 19 117/61 (79) 98 07/28/19 17:00 101 21 115/66 (82) 98 07/28/19 16:17 62 18 81/47 (58) 100 07/28/19 16:15 68 17 74/35 (48) 100 07/28/19 16:00 Nasal Cannula 4.0 12/10/19 16:00 75 07/28/19 16:00 72 16 88/46 (60) 100 07/28/19 16:00 4.0 07/28/19 15:00 66 21 87/47 (60) 100 07/28/19 14:45 Nasal Cannula 4.0 07/28/19 14:30 97.6 81 22 71/41 (51) 100 07/28/19 14:00 54 18 95/50 (65) 100 07/28/19 13:30 97.4 70 18 83/43 97 Nasal Cannula 4.0 07/28/19 13:00 97.8 70 18 83/43 97 Nasal Cannula 4.0 07/28/19 12:30 95 19 110/72 98 Nasal Cannula 4.0 07/28/19 12:10 102/49 07/28/19 12:10 95 19 102/49 96 Nasal Cannula 4.0 07/28/19 11:55 87/44 07/28/19 11:55 75 19 87/44 98 Nasal Cannula 4.0 07/28/19 11:40 86/52 07/28/19 11:40 99.7 66 19 86/52 98 Nasal Cannula 4.0 07/28/19 11:00 75 20 86/49 97 Nasal Cannula 4.0 07/28/19 10:30 80 20 84/51 97 Nasal Cannula 4.0 07/28/19 10:00 80 20 85/52 97 Nasal Cannula 4.0 07/28/19 09:40 99.7 85 24 90/54 97 Nasal Cannula 4.0 07/28/19 09:00 99.6 80 23 89/56 98 Nasal Cannula 4.0 07/28/19 08:30 99.8 88 24 89/54 98 Room Air 4.0 07/28/19 08:00 100.0 90 26 92/45 95 Nasal Cannula 4.0 07/28/19 07:51 98.2 88 16 110/70 (83) 97 Laboratory Tests Test 07/28/19 08:02 07/28/19 09:45 07/28/19 16:40 07/28/19 16:48 White Blood Count 7.2 K/UL (4.8-10.8) Red Blood Count 3.64 M/UL (4.70-6.10) L Hemoglobin 11.7 G/DL (14.2-18.0) L Hematocrit 32.9 % (42.0-52.0) L Mean Corpuscular Volume 90 FL (80-99) Mean Corpuscular Hemoglobin 32.0 PG (27.0-31.0) H Mean Corpuscular Hemoglobin Concent 35.5 G/DL (32.0-36.0) Red Cell Distribution Width 13.4 % (11.6-14.8) Platelet Count 345 K/UL (150-450) Mean Platelet Volume 5.8 FL (6.5-10.1) L Neutrophils (%) (Auto) 46.5 % (45.0-75.0) Lymphocytes (%) (Auto) 41.4 % (20.0-45.0) Monocytes (%) (Auto) 10.1 % (1.0-10.0) H Eosinophils (%) (Auto) 0.7 % (0.0-3.0) Basophils (%) (Auto) 1.4 % (0.0-2.0) Sodium Level 125 MMOL/L (136-145) L 135 MMOL/L (136-145) #L Potassium Level 4.0 MMOL/L (3.5-5.1) 3.8 MMOL/L (3.5-5.1) Chloride Level 91 MMOL/L (98-107) L 102 MMOL/L (98-107) Carbon Dioxide Level 28 MMOL/L (21-32) 23 MMOL/L (21-32) Anion Gap 6 mmol/L (5-15) 10 mmol/L (5-15) Blood Urea Nitrogen 16 mg/dL (7-18) 12 mg/dL (7-18) Creatinine 0.7 MG/DL (0.55-1.30) 0.6 MG/DL (0.55-1.30) Estimat Glomerular Filtration Rate > 60 mL/min (>60) > 60 mL/min (>60) Glucose Level 93 MG/DL (74-106) 128 MG/DL (74-106) H Lactic Acid Level 0.70 mmol/L (0.4-2.0) Calcium Level 7.6 MG/DL (8.5-10.1) L 7.2 MG/DL (8.5-10.1) L Total Bilirubin 0.8 MG/DL (0.2-1.0) 0.9 MG/DL (0.2-1.0) Aspartate Amino Transf (AST/SGOT) 228 U/L (15-37) H 249 U/L (15-37) H Alanine Aminotransferase (ALT/SGPT) 551 U/L (12-78) H 615 U/L (12-78) H Alkaline Phosphatase 154 U/L (46-116) H 141 U/L (46-116) H Total Creatine Kinase 36 U/L (26-308) 48 U/L (26-308) Troponin I 0.001 ng/mL (0.000-0.056) 0.041 ng/mL (0.000-0.056) Total Protein 7.8 G/DL (6.4-8.2) 7.9 G/DL (6.4-8.2) Albumin 2.4 G/DL (3.4-5.0) L 2.5 G/DL (3.4-5.0) L Globulin 5.4 g/dL 5.4 g/dL Albumin/Globulin Ratio 0.4 (1.0-2.7) L 0.5 (1.0-2.7) L Urine Color Pale yellow Urine Appearance Clear Urine pH 7 (4.5-8.0) Urine Specific [place] 1.005 (1.005-1.035) Urine Protein Negative (NEGATIVE) Urine Glucose (UA) Negative (NEGATIVE) Urine Ketones Negative (NEGATIVE) Urine Blood Negative (NEGATIVE) Urine Nitrite Negative (NEGATIVE) Urine Bilirubin Negative (NEGATIVE) Urine Urobilinogen Normal MG/DL (0.0-1.0) Urine Leukocyte Esterase Negative (NEGATIVE) Pro-B-Type Natriuretic Peptide 185 pg/mL (0-125) H Lipase 320 U/L (73-393) Microbiology Date/Time Source Procedure Growth Status 07/28/19 10:55 Rectal Mucosa Received Height (Feet): 5 Height (Inches): 4.00 Weight (Pounds): 107 Medications Current Medications Medications (Trade) Dose Ordered Sig/Kendra Route PRN Reason Start Time Stop Time Status Last Admin Dose Admin Acetaminophen (Tylenol) 650 mg Q4H PRN ORAL Mild Pain (Pain Scale 1-3) 07/28/19 12:15 08/27/19 12:14 Acetaminophen (Tylenol) 650 mg Q4H PRN ORAL fever 07/28/19 12:15 08/27/19 12:14 Albuterol/ Ipratropium (Albuterol/ Ipratropium) 3 ml Q4H PRN HHN Shortness of Breath 07/28/19 12:15 08/02/19 12:14 Chlorhexidine Gluconate (Judi-Hex 2%) 1 applic DAILY@2000 TOPIC 07/28/19 20:00 08/27/19 19:59 07/28/19 20:03 Dextrose (Dextrose 50%) 25 ml Q30M PRN IV Hypoglycemia 07/28/19 12:15 08/27/19 12:14 Dextrose (Dextrose 50%) 50 ml Q30M PRN IV Hypoglycemia 07/28/19 12:15 08/27/19 12:14 Dopamine HCl/ Dextrose 250 ml @ 0 mls/hr Q24H IV 07/28/19 19:00 08/27/19 18:59 07/28/19 20:03 Heparin Sodium (Porcine) (Heparin 5000 units/ml) 5,000 units EVERY 12 HOURS SUBQ 07/28/19 21:00 08/27/19 20:59 07/28/19 20:51 Heparin Sodium/ Sodium Chloride (Heparin 1000 units/500ml Premix) 1,000 unit ONCE PRN IV PICC 07/28/19 15:30 07/28/19 23:59 Hydromorphone HCl (Dilaudid) 1 mg Q4H PRN IVP Moderate Pain (Pain Scale 4-6) 07/28/19 12:15 08/04/19 12:14 Hydromorphone HCl (Dilaudid) 2 mg Q4H PRN IVP Severe Pain (Pain Scale 7-10) 07/28/19 12:15 08/04/19 12:14 Lidocaine HCl (Xylocaine 1% 30ml) 30 ml ONCE PRN INJ PICC 07/28/19 15:30 07/28/19 23:59 Meropenem 1 gm/ Sodium Chloride 100 ml @ 200 mls/hr Q8H IVPB 07/28/19 20:00 08/02/19 19:59 07/28/19 20:03 Sodium Chloride 1,000 ml @ 200 mls/hr Q5H IVLG 07/28/19 12:24 08/27/19 12:23 07/28/19 17:24 Vancomycin HCl (Vanco rx to dose) 1 ea DAILY PRN MISC Per rx protocol 07/28/19 12:00 08/27/19 11:59 Vancomycin/Sodium Chloride 275 ml @ 183.333 mls/hr Q12HR@0000,1200 IVPB 07/29/19 00:00 08/03/19 00:00 Assessment/Plan Problem List: (1) Septic shock Assessment & Plan: This is a 54-year-old male with multi-medical morbidities history of Down's who presents with hypotension, tachycardia, abnormal electrolytes, abnormal LFTs. Patient currently admitted to the intensive care unit for care and management. Abdominal ultrasound noted as below Does not seem to have intra-abdominal etiology of sepsis/SIRS We will continue with work-up Continue with IV fluid resuscitation Trend labs Hold on central venous catheter placement as patient is responsive to IV fluids. If requires pressors okay to use midline for a short period of time until peripherally inserted central venous catheter placed. Local wound care as below Once stable will resume nutritional goals Thank you will follow the recommendations Gallbladder is unremarkable, without stones, wall thickening, nor pericholecystic fluid. Sonographic Gamez's sign is negative. Common bile duct measures 5 mm in diameter. No intrahepatic biliary ductal dilatation. Liver demonstrates slightly coarsened echogenicity. No focal abnormality. Portal vein and hepatic veins are patent. Pancreas is unremarkable. Spleen is unremarkable. Left kidney measures left cm in length. Right kidney measures 11.2 cm length. Both kidneys demonstrate normal echogenicity. There is mild fullness to the right renal collecting system, and very mild left hydronephrosis No focal abnormality . Non-aneurysmal abdominal aorta . There is a right hip prosthesis which throws off streak artifact which may obscure pelvic pathology. There is also some image degradation due to respiratory motion artifact in the upper abdomen. Lack of enteric contrast limits assessment of the GI tract. The rectum is distended by stool, measuring 6.7 cm in diameter. No definite wall thickening or perirectal inflammation demonstrated. Considerable dense stool is also seen elsewhere within the colon. No evidence of colonic diverticulosis or diverticulitis. The appendix is normal. No small bowel distention. There is a gastrostomy which appears to be in good position. Lack of IV contrast limits assessment of the solid organs. The liver, gallbladder, bile ducts, pancreas, spleen, adrenals are all unremarkable. There is mild fullness to the bilateral renal collecting systems and ureters. No focal renal parenchymal abnormality. No renal or ureteral calculi demonstrated. The bladder is markedly distended. It demonstrates mild wall thickening. No pelvic mass or adenopathy. The lung bases demonstrate bronchial wall thickening and basilar atelectatic changes as well as possibly some bronchiectasis on the left. There may be trace pleural fluid bilaterally. There is a small anterior wall pericardial effusion which measures up to 7 mm in thickness. The bones demonstrate a compression fracture deformity of the T11 vertebral body. This results in about 30% height loss. This is in retrospect evident also on a prior chest CT of 06/03/2019 ICD Codes: A41.9 - Sepsis, unspecified organism; R65.21 - Severe sepsis with septic shock SNOMED: [id number] Alexis Ruffin Jul 28, 2019 21:13
[2019-07-29] VITALS (73 sets, daily range): BP systolic 74–132; BP diastolic 32–104
[2019-07-29] MEDS: Vancomycin 1.25gm/NS Premix q24h IVPB SCH ×2 (00:14→11:59)
[2019-07-29] MEDS: DOPamine 400mg/250ml 250 ML IV SCH ×3 (03:58→20:25)
[2019-07-29 05:44] LABS: BASOPHILS % (AUTO) 1.5 % (0.0-2.0); EOSINOPHILS % (AUTO) 0.3 % (0.0-3.0); HEMATOCRIT 35.1 % (42.0-52.0); HEMOGLOBIN 12.6 G/DL (14.2-18.0); LYMPHOCYTES % (AUTO) 16.5 % (20.0-45.0); MEAN CORPUSCULAR VOLUME 89 FL (80-99); NEUTROPHILS % (AUTO) 72.6 % (45.0-75.0); PLATELET COUNT 361 K/UL (150-450); RED BLOOD COUNT 3.93 M/UL (4.70-6.10); RED CELL DISTRIBUTION WIDTH 12.5 % (11.6-14.8); WHITE BLOOD COUNT 8.8 K/UL (4.8-10.8)
[2019-07-29 06:22] LABS: ALANINE AMINOTRANSFERASE 601 U/L (12-78); ALBUMIN 2.1 G/DL (3.4-5.0); ALBUMIN/GLOBULIN RATIO 0.4 (1.0-2.7); ALKALINE PHOSPHATASE 107 U/L (46-116); ANION GAP 6 mmol/L (5-15); ASPARTATE AMINO TRANSFERASE 273 U/L (15-37); BILIRUBIN,TOTAL 0.8 MG/DL (0.2-1.0); BLOOD UREA NITROGEN 8 mg/dL (7-18); CALCIUM 7.2 MG/DL (8.5-10.1); CARBON DIOXIDE 25 MMOL/L (21-32); CHLORIDE 108 MMOL/L (98-107); CREATININE 0.5 MG/DL (0.55-1.30); POTASSIUM 3.2 MMOL/L (3.5-5.1); SODIUM 139 MMOL/L (136-145)
[2019-07-29] MEDS: Heparin 5000 units/ml inj SUBQ SCH ×2 (08:27→20:08)
--- NOTE | 2019-07-29 09:11 | General Progress Note ---
Assessment/Plan Status: progressing, other - critical Assessment/Plan: 54-year-old male, alf resident Down syndrome, diastolic CHF, hypertension,hyperlipidemia, iron deficiency anemia, hypothyroidism, GERD, aortic stenosis, bilateral foot pressure ulcers, dysphagia s/p PEG presenting with altered mental status and hypoxia being admitted with septic shock likely secondary to pneumonia and possible abdominal source given elevated LFTs, though could be due to hypotension. CT abdomen pelvis without any source for infection. #Shock likely hypovolemic and septic #Healthcare associated pneumonia Aggressive IV fluid hydration. peripheral dopamine. Patient has a midline that could be used for levophed if needed. titrate dopamine for map 60. d/w Dr. Luevano. Decrease IV NS rate Continue home midodrine Broad spectrum antibiotics with vancomycin and meropenem per ID consult . case d /w Dr. Serrano follow up blood and sputum cultures Pulmonary consult with Dr. Luevano. case d/w AM cortisol level pending #toxic metabolic encephalopathy- improving Monitor mental status, treat sepsis #hypotonic hyponatremia- corrected continue to monitor #Abnormal LFTs -right upper quadrant ultrasound- reviewed, no acute pathology -Trend LFTs -If worsening, GI consult # Dysphagia, status post G-tube #GERD resume tube feeds for now #Down syndrome. #Diastolic CHF- not in exacerbation #hypertension- hypotensive now #hyperlipidemia # hypovolemic Hold BP meds #iron deficiency anemia H/H stable continue to monitor #hypothyroidism -Continue Synthroid, follow up TSH- normal #Bilateral wounds and pressure ulcers to the heels wound care consult with Dr. Ruffin, surgery off loading turning q2 hr VTE ppx: heparin subcutaneous. GI ppx: IV PPI Diet: tube feeds Code status, DNI, however can resuscitate disposition: Keep in ICU I spent 75 minutes on this patient's case, and 40 mins was dedicated to critical care Critical Care Services performed include: Telemetry Review Hemodynamic measurement interpretation Laboratory data review and interpretation Radiology image review and interpretation Interpretation of ABG's Discussion of patient's care with ICU team, ICU Nursing staff and/or consulting services time of this note may not reflect time of encounter. Subjective Date patient seen: Jul 29, 2019 ROS Limited/Unobtainable: Yes Allergies: Coded Allergies: KETAMINE (Verified Allergy, Unknown, 05/29/19) NSAIDS (NON-STEROIDAL ANTI-INFLAMMA (Verified Allergy, Unknown, 05/29/19) Subjective remains in ICU, awake but nn verbal (baseline), on dopamine drip and receiving IV NS @ 200 ml/hr Objective Last 24 Hour Vital Signs Date Time Temp Pulse Resp B/P (MAP) Pulse Ox O2 Delivery O2 Flow Rate FiO2 07/29/19 08:30 85 24 128/70 (89) 94 07/29/19 08:30 128/70 07/29/19 08:00 97.8 88 23 128/62 (84) 95 07/29/19 07:00 106/49 07/29/19 07:00 62 20 106/49 (68) 100 07/29/19 06:45 76 18 102/57 (72) 100 07/29/19 06:30 64 20 105/52 (69) 99 07/29/19 06:15 66 19 115/62 (79) 99 07/29/19 06:00 118/59 07/29/19 06:00 71 20 118/59 (78) 99 07/29/19 05:45 85 24 109/60 (76) 99 07/29/19 05:30 81 21 98/54 (69) 100 07/29/19 05:15 75 21 107/48 (67) 100 07/29/19 05:00 92/67 07/29/19 05:00 92 19 92/67 (75) 100 07/29/19 04:45 79 20 116/56 (76) 96 07/29/19 04:30 82 23 108/45 (66) 100 07/29/19 04:15 81 26 107/58 (74) 99 07/29/19 04:02 74/50 07/29/19 04:00 98.2 69 18 74/50 (58) 99 07/29/19 04:00 Nasal Cannula 4.0 07/29/19 03:58 106/62 07/29/19 03:45 96 18 106/62 (77) 97 07/29/19 03:30 100 20 106/64 (78) 88 07/29/19 03:15 82 20 119/63 (81) 90 07/29/19 03:06 76 07/29/19 03:00 88 23 98/64 (75) 92 07/29/19 03:00 119/63 07/29/19 02:45 90 20 132/84 (100) 99 07/29/19 02:30 88 21 108/91 (97) 100 07/29/19 02:15 83 21 102/66 (78) 100 07/29/19 02:00 114/59 07/29/19 02:00 82 25 114/59 (77) 100 07/29/19 01:45 75 21 104/50 (68) 98 07/29/19 01:30 66 19 115/56 (75) 100 07/29/19 01:15 75 18 108/51 (70) 99 07/29/19 01:00 86 21 105/53 (70) 100 07/29/19 01:00 108/51 07/29/19 00:45 70 18 121/60 (80) 100 07/29/19 00:30 67 18 116/50 (72) 100 07/29/19 00:15 90 22 102/54 (70) 99 07/29/19 00:05 85 07/29/19 00:00 Nasal Cannula 4.0 07/29/19 00:00 102/54 07/29/19 00:00 97.7 69 20 121/55 (77) 100 07/28/19 23:45 71 20 125/57 (79) 99 07/28/19 23:30 92 19 111/51 (71) 100 07/28/19 23:15 80 20 110/52 (71) 99 07/28/19 23:00 88 21 110/55 (73) 100 07/28/19 23:00 110/52 07/28/19 22:45 74 20 107/55 (72) 100 07/28/19 22:30 94 21 124/52 (76) 100 07/28/19 22:15 89 20 109/57 (74) 98 07/28/19 22:00 109 23 105/68 (80) 100 07/28/19 22:00 105/68 07/28/19 21:45 68 20 115/57 (76) 100 07/28/19 21:30 55 20 117/59 (78) 100 07/28/19 21:15 70 19 113/49 (70) 100 07/28/19 21:00 113/49 07/28/19 21:00 65 19 110/60 (77) 100 07/28/19 20:45 62 21 113/53 (73) 100 07/28/19 20:30 74 20 115/53 (73) 100 07/28/19 20:15 60 18 117/53 (74) 100 07/28/19 20:03 118/55 07/28/19 20:00 97.8 70 18 118/55 (76) 100 07/28/19 20:00 4.0 07/28/19 20:00 Nasal Cannula 4.0 07/28/19 19:36 73 07/28/19 19:11 121 19 97 Nasal Cannula 4.0 36 07/28/19 19:11 97 Nasal Cannula 4.0 36 07/28/19 19:00 76 20 107/39 (61) 99 07/28/19 18:45 95 21 105/53 (70) 96 07/28/19 18:30 59 19 106/61 (76) 100 07/28/19 18:15 93 19 112/48 (69) 100 07/28/19 18:00 68 20 92/60 (71) 100 07/28/19 17:45 71 18 111/58 (75) 100 07/28/19 17:30 76 18 126/68 (87) 100 07/28/19 17:15 81 19 117/61 (79) 98 07/28/19 17:00 101 21 115/66 (82) 98 07/28/19 16:17 62 18 81/47 (58) 100 07/28/19 16:15 68 17 74/35 (48) 100 07/28/19 16:00 Nasal Cannula 4.0 07/28/19 16:00 75 07/28/19 16:00 72 16 88/46 (60) 100 07/28/19 16:00 4.0 07/28/19 15:00 66 21 87/47 (60) 100 07/28/19 14:45 Nasal Cannula 4.0 07/28/19 14:30 97.6 81 22 71/41 (51) 100 07/28/19 14:00 54 18 95/50 (65) 100 07/28/19 13:30 97.4 70 18 83/43 97 Nasal Cannula 4.0 07/28/19 13:00 97.8 70 18 83/43 97 Nasal Cannula 4.0 07/28/19 12:30 95 19 110/72 98 Nasal Cannula 4.0 07/28/19 12:10 102/49 07/28/19 12:10 95 19 102/49 96 Nasal Cannula 4.0 07/28/19 11:55 87/44 07/28/19 11:55 75 19 87/44 98 Nasal Cannula 4.0 07/28/19 11:40 86/52 07/28/19 11:40 99.7 66 19 86/52 98 Nasal Cannula 4.0 07/28/19 11:00 75 20 86/49 97 Nasal Cannula 4.0 07/28/19 10:30 80 20 84/51 97 Nasal Cannula 4.0 07/28/19 10:00 80 20 85/52 97 Nasal Cannula 4.0 07/28/19 09:40 99.7 85 24 90/54 97 Nasal Cannula 4.0 Intake and Output 07/28/19 07/29/19 18:59 06:59 Intake Total 3055 ml 2955.37 ml Output Total 1420 ml 3485 ml Balance 1635 ml -529.63 ml Intake IV Total 3055 ml 2955.37 ml Output Urine Total 1420 ml 3485 ml Laboratory Tests 07/28/19 09:45: Urine Color Pale yellow, Urine Appearance Clear, Urine pH 7, Urine Specific [place] 1.005, Urine Protein Negative, Urine Glucose (UA) Negative, Urine Ketones Negative, Urine Blood Negative, Urine Nitrite Negative, Urine Bilirubin Negative, Urine Urobilinogen Normal, Urine Leukocyte Esterase Negative 07/28/19 16:40: Total Creatine Kinase 48, Troponin I 0.041, Pro-B-Type Natriuretic Peptide 185H , Lipase 320 07/28/19 16:48: Sodium Level 135#L, Potassium Level 3.8, Chloride Level 102, Carbon Dioxide Level 23, Anion Gap 10, Blood Urea Nitrogen 12, Creatinine 0.6, Estimat Glomerular Filtration Rate > 60, Glucose Level 128H, Calcium Level 7.2L, Total Bilirubin 0.9, Aspartate Amino Transf (AST/SGOT) 249H, Alanine Aminotransferase (ALT/SGPT) 615H, Alkaline Phosphatase 141H, Total Protein 7.9, Albumin 2.5L, Globulin 5.4, Albumin/Globulin Ratio 0.5L 07/29/19 03:35: Sodium Level 139, Potassium Level 3.2L, Chloride Level 108H, Carbon Dioxide Level 25, Anion Gap 6, Blood Urea Nitrogen 8, Creatinine 0.5L, Estimat Glomerular Filtration Rate > 60, Glucose Level 123H, Calcium Level 7.2L, Total Bilirubin 0.8, Aspartate Amino Transf (AST/SGOT) 273H, Alanine Aminotransferase (ALT/SGPT) 601H, Alkaline Phosphatase 107, Total Protein 7.5, Albumin 2.1L, Globulin 5.4, Albumin/Globulin Ratio 0.4L, White Blood Count 8.8, Red Blood Count 3.93L, Hemoglobin 12.6L, Hematocrit 35.1L, Mean Corpuscular Volume 89, Mean Corpuscular Hemoglobin 32.1H, Mean Corpuscular Hemoglobin Concent 36.0, Red Cell Distribution Width 12.5, Platelet Count 361, Mean Platelet Volume 5.3L , Neutrophils (%) (Auto) 72.6, Lymphocytes (%) (Auto) 16.5L, Monocytes (%) (Auto ) 9.0, Eosinophils (%) (Auto) 0.3, Basophils (%) (Auto) 1.5, Thyroid Stimulating Hormone (TSH) 0.917, Cortisol AM Sample [Pending] Microbiology Date/Time Source Procedure Growth Status 07/28/19 10:55 Rectal Mucosa Received Height (Feet): 5 Height (Inches): 4.00 Weight (Pounds): 126 Objective General Appearance: no apparent distress, awake, non verbal Head: normocephalic, atraumatic Eyes: bilateral PERRL ENT: dry mucus membranes Neck: supple, no jvd Respiratory: rhonchi Cardiovascular : regular rate, rhythm, no m/r/g, ext: No edema Gastrointestinal: non tender, soft, +peg, Open blood blister in close proximity to GT . Musculoskeletal: moving extremities, muscle atrophy Neurologic: unable to assess, due to not following commands Skin: stage 2 ulcer right heel Matty Hernandez M.D. Jul 29, 2019 09:11
--- NOTE | 2019-07-29 09:12 | Pulmonolgy Critical Care Note ---
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, ID Discussed with: nurses, consultants Critical Care - Objective Last 24 Hour Vital Signs Date Time Temp Pulse Resp B/P (MAP) Pulse Ox O2 Delivery O2 Flow Rate FiO2 07/29/19 08:30 85 24 128/70 (89) 94 07/29/19 08:30 128/70 07/29/19 08:00 97.8 88 23 128/62 (84) 95 07/29/19 07:00 106/49 07/29/19 07:00 62 20 106/49 (68) 100 07/29/19 06:45 76 18 102/57 (72) 100 07/29/19 06:30 64 20 105/52 (69) 99 07/29/19 06:15 66 19 115/62 (79) 99 07/29/19 06:00 118/59 07/29/19 06:00 71 20 118/59 (78) 99 07/29/19 05:45 85 24 109/60 (76) 99 07/29/19 05:30 81 21 98/54 (69) 100 07/29/19 05:15 75 21 107/48 (67) 100 07/29/19 05:00 92/67 07/29/19 05:00 92 19 92/67 (75) 100 07/29/19 04:45 79 20 116/56 (76) 96 07/29/19 04:30 82 23 108/45 (66) 100 07/29/19 04:15 81 26 107/58 (74) 99 07/29/19 04:02 74/50 07/29/19 04:00 98.2 69 18 74/50 (58) 99 07/29/19 04:00 Nasal Cannula 4.0 07/29/19 03:58 106/62 07/29/19 03:45 96 18 106/62 (77) 97 07/29/19 03:30 100 20 106/64 (78) 88 07/29/19 03:15 82 20 119/63 (81) 90 07/29/19 03:06 76 07/29/19 03:00 88 23 98/64 (75) 92 07/29/19 03:00 119/63 07/29/19 02:45 90 20 132/84 (100) 99 07/29/19 02:30 88 21 108/91 (97) 100 07/29/19 02:15 83 21 102/66 (78) 100 07/29/19 02:00 114/59 07/29/19 02:00 82 25 114/59 (77) 100 07/29/19 01:45 75 21 104/50 (68) 98 07/29/19 01:30 66 19 115/56 (75) 100 07/29/19 01:15 75 18 108/51 (70) 99 07/29/19 01:00 86 21 105/53 (70) 100 07/29/19 01:00 108/51 07/29/19 00:45 70 18 121/60 (80) 100 07/29/19 00:30 67 18 116/50 (72) 100 07/29/19 00:15 90 22 102/54 (70) 99 07/29/19 00:05 85 07/29/19 00:00 Nasal Cannula 4.0 07/29/19 00:00 102/54 07/29/19 00:00 97.7 69 20 121/55 (77) 100 07/28/19 23:45 71 20 125/57 (79) 99 07/28/19 23:30 92 19 111/51 (71) 100 07/28/19 23:15 80 20 110/52 (71) 99 07/28/19 23:00 88 21 110/55 (73) 100 07/28/19 23:00 110/52 07/28/19 22:45 74 20 107/55 (72) 100 07/28/19 22:30 94 21 124/52 (76) 100 07/28/19 22:15 89 20 109/57 (74) 98 07/28/19 22:00 109 23 105/68 (80) 100 07/28/19 22:00 105/68 07/28/19 21:45 68 20 115/57 (76) 100 07/28/19 21:30 55 20 117/59 (78) 100 07/28/19 21:15 70 19 113/49 (70) 100 07/28/19 21:00 113/49 07/28/19 21:00 65 19 110/60 (77) 100 07/28/19 20:45 62 21 113/53 (73) 100 07/28/19 20:30 74 20 115/53 (73) 100 07/28/19 20:15 60 18 117/53 (74) 100 07/28/19 20:03 118/55 07/28/19 20:00 97.8 70 18 118/55 (76) 100 07/28/19 20:00 4.0 07/28/19 20:00 Nasal Cannula 4.0 07/28/19 19:36 73 07/28/19 19:11 121 19 97 Nasal Cannula 4.0 36 07/28/19 19:11 97 Nasal Cannula 4.0 36 07/28/19 19:00 76 20 107/39 (61) 99 07/28/19 18:45 95 21 105/53 (70) 96 07/28/19 18:30 59 19 106/61 (76) 100 07/28/19 18:15 93 19 112/48 (69) 100 07/28/19 18:00 68 20 92/60 (71) 100 07/28/19 17:45 71 18 111/58 (75) 100 07/28/19 17:30 76 18 126/68 (87) 100 07/28/19 17:15 81 19 117/61 (79) 98 07/28/19 17:00 101 21 115/66 (82) 98 07/28/19 16:17 62 18 81/47 (58) 100 07/28/19 16:15 68 17 74/35 (48) 100 07/28/19 16:00 Nasal Cannula 4.0 07/28/19 16:00 75 07/28/19 16:00 72 16 88/46 (60) 100 07/28/19 16:00 4.0 07/28/19 15:00 66 21 87/47 (60) 100 07/28/19 14:45 Nasal Cannula 4.0 07/28/19 14:30 97.6 81 22 71/41 (51) 100 07/28/19 14:00 54 18 95/50 (65) 100 07/28/19 13:30 97.4 70 18 83/43 97 Nasal Cannula 4.0 07/28/19 13:00 97.8 70 18 83/43 97 Nasal Cannula 4.0 07/28/19 12:30 95 19 110/72 98 Nasal Cannula 4.0 07/28/19 12:10 102/49 07/28/19 12:10 95 19 102/49 96 Nasal Cannula 4.0 07/28/19 11:55 87/44 07/28/19 11:55 75 19 87/44 98 Nasal Cannula 4.0 07/28/19 11:40 86/52 07/28/19 11:40 99.7 66 19 86/52 98 Nasal Cannula 4.0 07/28/19 11:00 75 20 86/49 97 Nasal Cannula 4.0 07/28/19 10:30 80 20 84/51 97 Nasal Cannula 4.0 07/28/19 10:00 80 20 85/52 97 Nasal Cannula 4.0 07/28/19 09:40 99.7 85 24 90/54 97 Nasal Cannula 4.0 Status: somnolent Condition: critical HEENT: atraumatic, normocephalic Lungs: rales Heart: HR/BP unstable Abdomen: soft, non-tender, active bowel sounds, feeding tube Extremities: no C/C/E Decubiti: location - sac, stage - 2 Micro: Microbiology Date/Time Source Procedure Growth Status 07/28/19 10:55 Rectal Mucosa Received Blood Sugars: BS controlled Critical Care - Subjective ROS Limited/Unobtainable: Yes ICU Day: 2 Intubation Day: GITA Condition: critical IV Access: central - mid line EKG Rhythm: Sinus Rhythm FI02: 36 Sputum Amount: None Fluids: NS@200 Drips: DA @ 10 I&O: Intake and Output 07/28/19 07/29/19 18:59 06:59 Intake Total 3055 ml 2955.37 ml Output Total 1420 ml 3485 ml Balance 1635 ml -529.63 ml Intake IV Total 3055 ml 2955.37 ml Output Urine Total 1420 ml 3485 ml Subjective: GISELLE Labs: Laboratory Tests Test 07/28/19 09:45 07/28/19 16:40 12/10/19 16:48 07/29/19 03:35 Urine Color Pale yellow Urine Appearance Clear Urine pH 7 (4.5-8.0) Urine Specific [place] 1.005 (1.005-1.035) Urine Protein Negative (NEGATIVE) Urine Glucose (UA) Negative (NEGATIVE) Urine Ketones Negative (NEGATIVE) Urine Blood Negative (NEGATIVE) Urine Nitrite Negative (NEGATIVE) Urine Bilirubin Negative (NEGATIVE) Urine Urobilinogen Normal MG/DL (0.0-1.0) Urine Leukocyte Esterase Negative (NEGATIVE) Total Creatine Kinase 48 U/L (26-308) Troponin I 0.041 ng/mL (0.000-0.056) Pro-B-Type Natriuretic Peptide 185 pg/mL (0-125) H Lipase 320 U/L (73-393) Sodium Level 135 MMOL/L (136-145) #L 139 MMOL/L (136-145) Potassium Level 3.8 MMOL/L (3.5-5.1) 3.2 MMOL/L (3.5-5.1) L Chloride Level 102 MMOL/L (98-107) 108 MMOL/L (98-107) H Carbon Dioxide Level 23 MMOL/L (21-32) 25 MMOL/L (21-32) Anion Gap 10 mmol/L (5-15) 6 mmol/L (5-15) Blood Urea Nitrogen 12 mg/dL (7-18) 8 mg/dL (7-18) Creatinine 0.6 MG/DL (0.55-1.30) 0.5 MG/DL (0.55-1.30) L Estimat Glomerular Filtration Rate > 60 mL/min (>60) > 60 mL/min (>60) Glucose Level 128 MG/DL (74-106) H 123 MG/DL (74-106) H Calcium Level 7.2 MG/DL (8.5-10.1) L 7.2 MG/DL (8.5-10.1) L Total Bilirubin 0.9 MG/DL (0.2-1.0) 0.8 MG/DL (0.2-1.0) Aspartate Amino Transf (AST/SGOT) 249 U/L (15-37) H 273 U/L (15-37) H Alanine Aminotransferase (ALT/SGPT) 615 U/L (12-78) H 601 U/L (12-78) H Alkaline Phosphatase 141 U/L (46-116) H 107 U/L (46-116) Total Protein 7.9 G/DL (6.4-8.2) 7.5 G/DL (6.4-8.2) Albumin 2.5 G/DL (3.4-5.0) L 2.1 G/DL (3.4-5.0) L Globulin 5.4 g/dL 5.4 g/dL Albumin/Globulin Ratio 0.5 (1.0-2.7) L 0.4 (1.0-2.7) L White Blood Count 8.8 K/UL (4.8-10.8) Red Blood Count 3.93 M/UL (4.70-6.10) L Hemoglobin 12.6 G/DL (14.2-18.0) L Hematocrit 35.1 % (42.0-52.0) L Mean Corpuscular Volume 89 FL (80-99) Mean Corpuscular Hemoglobin 32.1 PG (27.0-31.0) H Mean Corpuscular Hemoglobin Concent 36.0 G/DL (32.0-36.0) Red Cell Distribution Width 12.5 % (11.6-14.8) Platelet Count 361 K/UL (150-450) Mean Platelet Volume 5.3 FL (6.5-10.1) L Neutrophils (%) (Auto) 72.6 % (45.0-75.0) Lymphocytes (%) (Auto) 16.5 % (20.0-45.0) L Monocytes (%) (Auto) 9.0 % (1.0-10.0) Eosinophils (%) (Auto) 0.3 % (0.0-3.0) Basophils (%) (Auto) 1.5 % (0.0-2.0) Thyroid Stimulating Hormone (TSH) 0.917 uiU/mL (0.358-3.740) Cortisol AM Sample Pending Yovani Luevano MD Jul 29, 2019 09:12
--- NOTE | 2019-07-29 10:49 | Diagnostic Imaging Report ---
Indication: Shortness of breath Technique: One view of the chest Comparison: 07/28/2019 Findings: There is increased consolidation and atelectasis at the right lung base. Left suprahilar atelectasis or scarring is unchanged. The pleural spaces are grossly clear. The heart size is normal Impression: Increasing right basilar consolidation and atelectasis, over one day
--- NOTE | 2019-07-29 15:27 | Cardiology Report ---
APPROVED REPORT EKG Measurement Heart [id number] Suspect arm lead reversal, interpretation assumes no reversal Normal sinus rhythm Rightward axis Anterior infarct, age undetermined Abnormal ECG
--- NOTE | 2019-07-29 16:34 | Infectious Diseases Prog Note ---
Assessment/Plan Assessment/Plan Full consult dictated: A) 1) sepsis, shock, fevers, gram + bacteremia, ? line infection (+ midline and can get infected), pneumonia, hypoxia, ams 2) pmh noted 3) allergies - nsaids, ketamine P) 1) meropenem and vancomycin, discontinue midline 2) check cultures, labs and chest x-ray 3) icu care 4) will f/u Subjective Allergies: Coded Allergies: KETAMINE (Verified Allergy, Unknown, 05/29/19) NSAIDS (NON-STEROIDAL ANTI-INFLAMMA (Verified Allergy, Unknown, 05/29/19) Objective Vital Signs Last 24 Hour Vital Signs Date Time Temp Pulse Resp B/P (MAP) Pulse Ox O2 Delivery O2 Flow Rate FiO2 07/29/19 16:00 66 07/29/19 16:00 97.5 87 22 120/58 (78) 95 07/29/19 15:00 76 24 106/57 (73) 96 07/29/19 14:00 73 22 127/54 (78) 93 07/29/19 13:45 66/54 07/29/19 13:15 123/50 07/29/19 13:00 97.7 71 18 124/45 (71) 94 07/29/19 12:50 103/81 07/29/19 12:00 Nasal Cannula 2.0 07/29/19 12:00 74 07/29/19 12:00 67 22 112/53 (72) 95 07/29/19 11:00 67 17 89/57 (68) 99 07/29/19 10:30 68 17 99/53 (68) 99 07/29/19 10:00 71 16 99/49 (66) 99 07/29/19 09:30 64 16 97/51 (66) 98 07/29/19 09:00 71 16 97/51 (66) 98 07/29/19 08:30 85 24 128/70 (89) 94 07/29/19 08:30 128/70 07/29/19 08:00 Nasal Cannula 2.0 07/29/19 08:00 98 07/29/19 08:00 97.8 88 23 128/62 (84) 95 07/29/19 07:30 76 24 117/59 (78) 93 07/29/19 07:00 96 Nasal Cannula 4.0 36 07/29/19 07:00 106 18 96 Nasal Cannula 4.0 36 07/29/19 07:00 106/49 07/29/19 07:00 62 20 106/49 (68) 100 07/29/19 06:45 76 18 102/57 (72) 100 07/29/19 06:30 64 20 105/52 (69) 99 07/29/19 06:15 66 19 115/62 (79) 99 07/29/19 06:00 118/59 07/29/19 06:00 71 20 118/59 (78) 99 07/29/19 05:45 85 24 109/60 (76) 99 07/29/19 05:30 81 21 98/54 (69) 100 07/29/19 05:15 75 21 107/48 (67) 100 07/29/19 05:00 92/67 07/29/19 05:00 92 19 92/67 (75) 100 07/29/19 04:45 79 20 116/56 (76) 96 07/29/19 04:30 82 23 108/45 (66) 100 07/29/19 04:15 81 26 107/58 (74) 99 07/29/19 04:02 74/50 07/29/19 04:00 98.2 69 18 74/50 (58) 99 07/29/19 04:00 Nasal Cannula 4.0 07/29/19 03:58 106/62 07/29/19 03:45 96 18 106/62 (77) 97 07/29/19 03:30 100 20 106/64 (78) 88 07/29/19 03:15 82 20 119/63 (81) 90 07/29/19 03:06 76 07/29/19 03:00 88 23 98/64 (75) 92 07/29/19 03:00 119/63 07/29/19 02:45 90 20 132/84 (100) 99 07/29/19 02:30 88 21 108/91 (97) 100 07/29/19 02:15 83 21 102/66 (78) 100 07/29/19 02:00 114/59 07/29/19 02:00 82 25 114/59 (77) 100 07/29/19 01:45 75 21 104/50 (68) 98 07/29/19 01:30 66 19 115/56 (75) 100 07/29/19 01:15 75 18 108/51 (70) 99 07/29/19 01:00 86 21 105/53 (70) 100 07/29/19 01:00 108/51 07/29/19 00:45 70 18 121/60 (80) 100 07/29/19 00:30 67 18 116/50 (72) 100 07/29/19 00:15 90 22 102/54 (70) 99 07/29/19 00:05 85 07/29/19 00:00 Nasal Cannula 4.0 07/29/19 00:00 102/54 07/29/19 00:00 97.7 69 20 121/55 (77) 100 07/28/19 23:45 71 20 125/57 (79) 99 07/28/19 23:30 92 19 111/51 (71) 100 07/28/19 23:15 80 20 110/52 (71) 99 07/28/19 23:00 88 21 110/55 (73) 100 07/28/19 23:00 110/52 07/28/19 22:45 74 20 107/55 (72) 100 07/28/19 22:30 94 21 124/52 (76) 100 07/28/19 22:15 89 20 109/57 (74) 98 07/28/19 22:00 109 23 105/68 (80) 100 07/28/19 22:00 105/68 07/28/19 21:45 68 20 115/57 (76) 100 07/28/19 21:30 55 20 117/59 (78) 100 07/28/19 21:15 70 19 113/49 (70) 100 07/28/19 21:00 113/49 07/28/19 21:00 65 19 110/60 (77) 100 07/28/19 20:45 62 21 113/53 (73) 100 07/28/19 20:30 74 20 115/53 (73) 100 07/28/19 20:15 60 18 117/53 (74) 100 07/28/19 20:03 118/55 07/28/19 20:00 97.8 70 18 118/55 (76) 100 07/28/19 20:00 4.0 07/28/19 20:00 Nasal Cannula 4.0 07/28/19 19:36 73 12/10/19 19:11 121 19 97 Nasal Cannula 4.0 36 07/28/19 19:11 97 Nasal Cannula 4.0 36 07/28/19 19:00 76 20 107/39 (61) 99 07/28/19 18:45 95 21 105/53 (70) 96 07/28/19 18:30 59 19 106/61 (76) 100 07/28/19 18:15 93 19 112/48 (69) 100 07/28/19 18:00 68 20 92/60 (71) 100 07/28/19 17:45 71 18 111/58 (75) 100 07/28/19 17:30 76 18 126/68 (87) 100 07/28/19 17:15 81 19 117/61 (79) 98 07/28/19 17:00 101 21 115/66 (82) 98 Height (Feet): 5 Height (Inches): 4.00 Weight (Pounds): 126 Microbiology Date/Time Source Procedure Growth Status 07/28/19 08:02 Blood Blood Culture - Preliminary Resulted 07/28/19 10:55 Rectal Mucosa Received Laboratory Tests Test 07/28/19 16:40 07/28/19 16:48 07/29/19 03:35 Total Creatine Kinase 48 U/L (26-308) Troponin I 0.041 ng/mL (0.000-0.056) Pro-B-Type Natriuretic Peptide 185 pg/mL (0-125) H Lipase 320 U/L (73-393) Sodium Level 135 MMOL/L (136-145) #L 139 MMOL/L (136-145) Potassium Level 3.8 MMOL/L (3.5-5.1) 3.2 MMOL/L (3.5-5.1) L Chloride Level 102 MMOL/L (98-107) 108 MMOL/L (98-107) H Carbon Dioxide Level 23 MMOL/L (21-32) 25 MMOL/L (21-32) Anion Gap 10 mmol/L (5-15) 6 mmol/L (5-15) Blood Urea Nitrogen 12 mg/dL (7-18) 8 mg/dL (7-18) Creatinine 0.6 MG/DL (0.55-1.30) 0.5 MG/DL (0.55-1.30) L Estimat Glomerular Filtration Rate > 60 mL/min (>60) > 60 mL/min (>60) Glucose Level 128 MG/DL (74-106) H 123 MG/DL (74-106) H Calcium Level 7.2 MG/DL (8.5-10.1) L 7.2 MG/DL (8.5-10.1) L Total Bilirubin 0.9 MG/DL (0.2-1.0) 0.8 MG/DL (0.2-1.0) Aspartate Amino Transf (AST/SGOT) 249 U/L (15-37) H 273 U/L (15-37) H Alanine Aminotransferase (ALT/SGPT) 615 U/L (12-78) H 601 U/L (12-78) H Alkaline Phosphatase 141 U/L (46-116) H 107 U/L (46-116) Total Protein 7.9 G/DL (6.4-8.2) 7.5 G/DL (6.4-8.2) Albumin 2.5 G/DL (3.4-5.0) L 2.1 G/DL (3.4-5.0) L Globulin 5.4 g/dL 5.4 g/dL Albumin/Globulin Ratio 0.5 (1.0-2.7) L 0.4 (1.0-2.7) L White Blood Count 8.8 K/UL (4.8-10.8) Red Blood Count 3.93 M/UL (4.70-6.10) L Hemoglobin 12.6 G/DL (14.2-18.0) L Hematocrit 35.1 % (42.0-52.0) L Mean Corpuscular Volume 89 FL (80-99) Mean Corpuscular Hemoglobin 32.1 PG (27.0-31.0) H Mean Corpuscular Hemoglobin Concent 36.0 G/DL (32.0-36.0) Red Cell Distribution Width 12.5 % (11.6-14.8) Platelet Count 361 K/UL (150-450) Mean Platelet Volume 5.3 FL (6.5-10.1) L Neutrophils (%) (Auto) 72.6 % (45.0-75.0) Lymphocytes (%) (Auto) 16.5 % (20.0-45.0) L Monocytes (%) (Auto) 9.0 % (1.0-10.0) Eosinophils (%) (Auto) 0.3 % (0.0-3.0) Basophils (%) (Auto) 1.5 % (0.0-2.0) Thyroid Stimulating Hormone (TSH) 0.917 uiU/mL (0.358-3.740) Cortisol AM Sample 12.7 UG/DL Current Medications Medications (Trade) Dose Ordered Sig/Kendra Route PRN Reason Start Time Stop Time Status Last Admin Dose Admin Acetaminophen (Tylenol) 650 mg Q4H PRN ORAL Mild Pain (Pain Scale 1-3) 07/28/19 12:15 08/27/19 12:14 Acetaminophen (Tylenol) 650 mg Q4H PRN ORAL fever 07/28/19 12:15 08/27/19 12:14 Albuterol/ Ipratropium (Albuterol/ Ipratropium) 3 ml Q4H PRN HHN Shortness of Breath 07/28/19 12:15 08/02/19 12:14 Chlorhexidine Gluconate (Judi-Hex 2%) 1 applic DAILY@2000 TOPIC 07/28/19 20:00 08/27/19 19:59 07/28/19 20:03 Dextrose (Dextrose 50%) 25 ml Q30M PRN IV Hypoglycemia 07/28/19 12:15 08/27/19 12:14 Dextrose (Dextrose 50%) 50 ml Q30M PRN IV Hypoglycemia 07/28/19 12:15 08/27/19 12:14 Dopamine HCl/ Dextrose 250 ml @ 0 mls/hr Q24H IV 07/28/19 19:00 08/27/19 18:59 07/29/19 12:50 Heparin Sodium (Porcine) (Heparin 5000 units/ml) 5,000 units EVERY 12 HOURS SUBQ 07/28/19 21:00 08/27/19 20:59 07/29/19 08:27 Hydromorphone HCl (Dilaudid) 1 mg Q4H PRN IVP Moderate Pain (Pain Scale 4-6) 07/28/19 12:15 08/04/19 12:14 Hydromorphone HCl (Dilaudid) 2 mg Q4H PRN IVP Severe Pain (Pain Scale 7-10) 07/28/19 12:15 08/04/19 12:14 Levothyroxine Sodium (Synthroid) 50 mcg DAILY@0630 ORAL 07/30/19 06:30 08/29/19 06:29 Meropenem 1 gm/ Sodium Chloride 100 ml @ 200 mls/hr Q8H IVPB 07/28/19 20:00 08/02/19 19:59 07/29/19 11:59 Sodium Chloride 1,000 ml @ 125 mls/hr Q8H IV 07/29/19 09:00 08/28/19 08:59 07/29/19 10:09 Vancomycin HCl (Vanco rx to dose) 1 ea DAILY PRN MISC Per rx protocol 07/28/19 12:00 08/27/19 11:59 Vancomycin/Sodium Chloride 275 ml @ 183.333 mls/hr Q12HR@0000,1200 IVPB 07/29/19 00:00 08/03/19 00:00 07/29/19 11:59 Rafia Rand MD Jul 29, 2019 16:34
[2019-07-29] MEDS ORDERED: NS Irrig 1000ml ONE (16:37)
[2019-07-29 17:23] LABS: EOSINOPHILS % (AUTO) 0.6 % (0.0-3.0); HEMOGLOBIN 12.3 G/DL (14.2-18.0); LYMPHOCYTES % (AUTO) 27.3 % (20.0-45.0); MEAN CORPUSCULAR VOLUME 88 FL (80-99); MONOCYTES % (AUTO) 8.6 % (1.0-10.0); NEUTROPHILS % (AUTO) 61.5 % (45.0-75.0); PLATELET COUNT 321 K/UL (150-450); RED BLOOD COUNT 3.85 M/UL (4.70-6.10); RED CELL DISTRIBUTION WIDTH 12.6 % (11.6-14.8); WHITE BLOOD COUNT 7.3 K/UL (4.8-10.8)
--- NOTE | 2019-07-29 17:33 | Surgery Progress Note ---
Surgery Progress Note Subjective Additional Comments Patient seen and examined bedside. Looks little bit more awake and alert and comfortable today. Still on dopa. Hypo-and bradycardia when off Toprol at times. No nausea vomiting fever chills. Labs noted. Objective Last 24 Hour Vital Signs Date Time Temp Pulse Resp B/P (MAP) Pulse Ox O2 Delivery O2 Flow Rate FiO2 07/29/19 17:00 99 24 110/77 (88) 97 07/29/19 16:00 Nasal Cannula 2.0 07/29/19 16:00 66 07/29/19 16:00 97.5 87 22 120/58 (78) 95 07/29/19 15:00 76 24 106/57 (73) 96 07/29/19 14:00 73 22 127/54 (78) 93 07/29/19 13:45 66/54 07/29/19 13:15 123/50 07/29/19 13:00 97.7 71 18 124/45 (71) 94 07/29/19 12:50 103/81 07/29/19 12:00 Nasal Cannula 2.0 07/29/19 12:00 74 07/29/19 12:00 67 22 112/53 (72) 95 07/29/19 11:00 67 17 89/57 (68) 99 07/29/19 10:30 68 17 99/53 (68) 99 07/29/19 10:00 71 16 99/49 (66) 99 07/29/19 09:30 64 16 97/51 (66) 98 07/29/19 09:00 71 16 97/51 (66) 98 07/29/19 08:30 85 24 128/70 (89) 94 07/29/19 08:30 128/70 07/29/19 08:00 Nasal Cannula 2.0 07/29/19 08:00 98 07/29/19 08:00 97.8 88 23 128/62 (84) 95 07/29/19 07:30 76 24 117/59 (78) 93 07/29/19 07:00 96 Nasal Cannula 4.0 36 07/29/19 07:00 106 18 96 Nasal Cannula 4.0 36 07/29/19 07:00 106/49 07/29/19 07:00 62 20 106/49 (68) 100 07/29/19 06:45 76 18 102/57 (72) 100 07/29/19 06:30 64 20 105/52 (69) 99 07/29/19 06:15 66 19 115/62 (79) 99 07/29/19 06:00 118/59 07/29/19 06:00 71 20 118/59 (78) 99 07/29/19 05:45 85 24 109/60 (76) 99 07/29/19 05:30 81 21 98/54 (69) 100 07/29/19 05:15 75 21 107/48 (67) 100 07/29/19 05:00 92/67 07/29/19 05:00 92 19 92/67 (75) 100 07/29/19 04:45 79 20 116/56 (76) 96 07/29/19 04:30 82 23 108/45 (66) 100 07/29/19 04:15 81 26 107/58 (74) 99 07/29/19 04:02 74/50 07/29/19 04:00 98.2 69 18 74/50 (58) 99 07/29/19 04:00 Nasal Cannula 4.0 07/29/19 03:58 106/62 07/29/19 03:45 96 18 106/62 (77) 97 07/29/19 03:30 100 20 106/64 (78) 88 07/29/19 03:15 82 20 119/63 (81) 90 07/29/19 03:06 76 07/29/19 03:00 88 23 98/64 (75) 92 07/29/19 03:00 119/63 07/29/19 02:45 90 20 132/84 (100) 99 07/29/19 02:30 88 21 108/91 (97) 100 07/29/19 02:15 83 21 102/66 (78) 100 07/29/19 02:00 114/59 07/29/19 02:00 82 25 114/59 (77) 100 07/29/19 01:45 75 21 104/50 (68) 98 07/29/19 01:30 66 19 115/56 (75) 100 07/29/19 01:15 75 18 108/51 (70) 99 07/29/19 01:00 86 21 105/53 (70) 100 07/29/19 01:00 108/51 07/29/19 00:45 70 18 121/60 (80) 100 07/29/19 00:30 67 18 116/50 (72) 100 07/29/19 00:15 90 22 102/54 (70) 99 07/29/19 00:05 85 07/29/19 00:00 Nasal Cannula 4.0 07/29/19 00:00 102/54 07/29/19 00:00 97.7 69 20 121/55 (77) 100 07/28/19 23:45 71 20 125/57 (79) 99 07/28/19 23:30 92 19 111/51 (71) 100 07/28/19 23:15 80 20 110/52 (71) 99 07/28/19 23:00 88 21 110/55 (73) 100 07/28/19 23:00 110/52 07/28/19 22:45 74 20 107/55 (72) 100 07/28/19 22:30 94 21 124/52 (76) 100 07/28/19 22:15 89 20 109/57 (74) 98 07/28/19 22:00 109 23 105/68 (80) 100 07/28/19 22:00 105/68 07/28/19 21:45 68 20 115/57 (76) 100 07/28/19 21:30 55 20 117/59 (78) 100 07/28/19 21:15 70 19 113/49 (70) 100 07/28/19 21:00 113/49 07/28/19 21:00 65 19 110/60 (77) 100 07/28/19 20:45 62 21 113/53 (73) 100 07/28/19 20:30 74 20 115/53 (73) 100 07/28/19 20:15 60 18 117/53 (74) 100 07/28/19 20:03 118/55 07/28/19 20:00 97.8 70 18 118/55 (76) 100 07/28/19 20:00 4.0 07/28/19 20:00 Nasal Cannula 4.0 07/28/19 19:36 73 07/28/19 19:11 121 19 97 Nasal Cannula 4.0 36 07/28/19 19:11 97 Nasal Cannula 4.0 36 07/28/19 19:00 76 20 107/39 (61) 99 07/28/19 18:45 95 21 105/53 (70) 96 07/28/19 18:30 59 19 106/61 (76) 100 07/28/19 18:15 93 19 112/48 (69) 100 07/28/19 18:00 68 20 92/60 (71) 100 07/28/19 17:45 71 18 111/58 (75) 100 I&O Intake and Output 07/28/19 07/29/19 19:00 07:00 Intake Total 3255 ml 2977.21 ml Output Total 1505 ml 3500 ml Balance 1750 ml -522.79 ml IV Total 3255 ml 2977.21 ml Output Urine Total 1505 ml 3500 ml Dressing: other Wound: other Drains: other Cardiovascular: RSR Respiratory: decreased breath sounds Abdomen: soft, present bowel sounds, non-distended Extremities: no cyanosis, other Laboratory Tests Test 07/29/19 03:35 07/29/19 17:00 White Blood Count 8.8 K/UL (4.8-10.8) Pending Red Blood Count 3.93 M/UL (4.70-6.10) L Pending Hemoglobin 12.6 G/DL (14.2-18.0) L Pending Hematocrit 35.1 % (42.0-52.0) L Pending Mean Corpuscular Volume 89 FL (80-99) Pending Mean Corpuscular Hemoglobin 32.1 PG (27.0-31.0) H Pending Mean Corpuscular Hemoglobin Concent 36.0 G/DL (32.0-36.0) Pending Red Cell Distribution Width 12.5 % (11.6-14.8) Pending Platelet Count 361 K/UL (150-450) Pending Mean Platelet Volume 5.3 FL (6.5-10.1) L Pending Neutrophils (%) (Auto) 72.6 % (45.0-75.0) Pending Lymphocytes (%) (Auto) 16.5 % (20.0-45.0) L Pending Monocytes (%) (Auto) 9.0 % (1.0-10.0) Pending Eosinophils (%) (Auto) 0.3 % (0.0-3.0) Pending Basophils (%) (Auto) 1.5 % (0.0-2.0) Pending Sodium Level 139 MMOL/L (136-145) Pending Potassium Level 3.2 MMOL/L (3.5-5.1) L Pending Chloride Level 108 MMOL/L (98-107) H Pending Carbon Dioxide Level 25 MMOL/L (21-32) Pending Anion Gap 6 mmol/L (5-15) Blood Urea Nitrogen 8 mg/dL (7-18) Pending Creatinine 0.5 MG/DL (0.55-1.30) L Pending Estimat Glomerular Filtration Rate > 60 mL/min (>60) Pending Glucose Level 123 MG/DL (74-106) H Pending Calcium Level 7.2 MG/DL (8.5-10.1) L Pending Total Bilirubin 0.8 MG/DL (0.2-1.0) Pending Aspartate Amino Transf (AST/SGOT) 273 U/L (15-37) H Pending Alanine Aminotransferase (ALT/SGPT) 601 U/L (12-78) H Pending Alkaline Phosphatase 107 U/L (46-116) Pending Total Protein 7.5 G/DL (6.4-8.2) Pending Albumin 2.1 G/DL (3.4-5.0) L Pending Globulin 5.4 g/dL Pending Albumin/Globulin Ratio 0.4 (1.0-2.7) L Thyroid Stimulating Hormone (TSH) 0.917 uiU/mL (0.358-3.740) Cortisol AM Sample 12.7 UG/DL Plan Problems: (1) Septic shock Assessment & Plan: This is a 54-year-old male with multi-medical morbidities history of Down's who presents with hypotension, tachycardia, abnormal electrolytes, abnormal LFTs. Patient currently admitted to the intensive care unit for care and management. Abdominal ultrasound noted as below Does not seem to have intra-abdominal etiology of sepsis/SIRS We will continue with work-up Continue with IV fluid resuscitation Trend labs Hold on central venous catheter placement as patient is responsive to IV fluids. If requires pressors okay to use midline for a short period of time until peripherally inserted central venous catheter placed. Local wound care as below Once stable will resume nutritional goals Thank you will follow the recommendations Gallbladder is unremarkable, without stones, wall thickening, nor pericholecystic fluid. Sonographic Gamez's sign is negative. Common bile duct measures 5 mm in diameter. No intrahepatic biliary ductal dilatation. Liver demonstrates slightly coarsened echogenicity. No focal abnormality. Portal vein and hepatic veins are patent. Pancreas is unremarkable. Spleen is unremarkable. Left kidney measures left cm in length. Right kidney measures 11.2 cm length. Both kidneys demonstrate normal echogenicity. There is mild fullness to the right renal collecting system, and very mild left hydronephrosis No focal abnormality . Non-aneurysmal abdominal aorta . There is a right hip prosthesis which throws off streak artifact which may obscure pelvic pathology. There is also some image degradation due to respiratory motion artifact in the upper abdomen. Lack of enteric contrast limits assessment of the GI tract. The rectum is distended by stool, measuring 6.7 cm in diameter. No definite wall thickening or perirectal inflammation demonstrated. Considerable dense stool is also seen elsewhere within the colon. No evidence of colonic diverticulosis or diverticulitis. The appendix is normal. No small bowel distention. There is a gastrostomy which appears to be in good position. Lack of IV contrast limits assessment of the solid organs. The liver, gallbladder, bile ducts, pancreas, spleen, adrenals are all unremarkable. There is mild fullness to the bilateral renal collecting systems and ureters. No focal renal parenchymal abnormality. No renal or ureteral calculi demonstrated. The bladder is markedly distended. It demonstrates mild wall thickening. No pelvic mass or adenopathy. The lung bases demonstrate bronchial wall thickening and basilar atelectatic changes as well as possibly some bronchiectasis on the left. There may be trace pleural fluid bilaterally. There is a small anterior wall pericardial effusion which measures up to 7 mm in thickness. The bones demonstrate a compression fracture deformity of the T11 vertebral body. This results in about 30% height loss. This is in retrospect evident also on a prior chest CT of 06/03/2019 Alexis Ruffin Jul 29, 2019 17:33
[2019-07-29 18:07] LABS: ALANINE AMINOTRANSFERASE 698 U/L (12-78); ALBUMIN 2.2 G/DL (3.4-5.0); ALBUMIN/GLOBULIN RATIO 0.4 (1.0-2.7); ALKALINE PHOSPHATASE 99 U/L (46-116); ANION GAP 6 mmol/L (5-15); ASPARTATE AMINO TRANSFERASE 333 U/L (15-37); BLOOD UREA NITROGEN 6 mg/dL (7-18); CALCIUM 7.2 MG/DL (8.5-10.1); CARBON DIOXIDE 25 MMOL/L (21-32); CHLORIDE 104 MMOL/L (98-107); CREATININE 0.5 MG/DL (0.55-1.30); POTASSIUM 3.2 MMOL/L (3.5-5.1); SODIUM 135 MMOL/L (136-145)
[2019-07-29] MEDS: Dyna-Hex 2% Top Sol 2oz TOPIC SCH (19:32)
--- NOTE | 2019-07-29 20:45 | Consultation ---
DATE OF CONSULTATION: 07/29/2019 INFECTIOUS DISEASE CONSULTATION CONSULTING PHYSICIAN: Rafia Rand M.D. ATTENDING PHYSICIAN: Prashant Gallagher M.D. REFERRING PHYSICIAN: Dr. Matty Hernandez REASON FOR CONSULTATION: Sepsis, shock, fevers, pneumonia, gram-positive bacteremia. CHIEF COMPLAINT: The patient's chief complaint coming into the hospital is hypothermia, hypotension. HISTORY OF PRESENT ILLNESS: This is a 54-year-old male who I saw yesterday in the emergency room who now is in the ICU at [facility]. The patient presented with fever, sepsis, shock. He is on 10 mcg of dopamine at this time. The patient had chest x-ray which showed pneumonia. Blood cultures gram-positive organisms. He does have a midline which potentially could be infected. Infectious Diseases consultation was requested. The patient is currently on meropenem an vancomycin. Sputum culture is pending. Blood culture identification is pending. Case was discussed with Dr. Hernandez. We will continue vancomycin and meropenem for now. MAR was noted. Orders were noted. Notes were reviewed. The patient is currently is in ICU. REVIEW OF SYSTEMS: CONSTITUTIONAL: The patient has sepsis, shock requiring 10 mcg of dopamine. He has some shortness of breath and congestion. He has fevers. After coming in, fevers have improved. He is on pressors. Otherwise generalized weakness, more alert today, generalized fatigue. HEAD AND NECK: Could not really assess. CARDIAC: He is on pressors. GASTROINTESTINAL: No nausea, vomiting, or diarrhea. GENITOURINARY: He does have a Lal. PULMONARY: No hemoptysis or secretions. May be mild congestion.. SKIN: No new rash. EXTREMITIES: Could not assess. NEUROLOGIC: No seizures. He has generalized fatigue and weakness. LINES: He has a midline not a PICC line. PAST MEDICAL HISTORY: He has history of dysphagia, G-tube, Down syndrome, diastolic CHF, hypertension, hyperlipidemia, anemia, hypothyroidism, GERD, aortic stenosis. ALLERGIES: NSAIDs and ketamine. He is not allergic to antibiotics. SOCIAL HISTORY: Negative for smoking, alcohol, or drug abuse. FAMILY HISTORY: Noncontributory. Negative for exposure to tuberculosis or cancer. MEDICATIONS: Upon reviewing the MAR, he is on the following medications. He is on levothyroxine or Synthroid. He is on vancomycin, meropenem, heparin, chlorhexidine, dopamine. He is on breathing treatments. He is on acetaminophen. He is on hydromorphone as needed. Outside medications noted and reconciliated. Those medications include famotidine, bisacodyl, ferrous sulfate, levothyroxine, midodrine, they were reviewed. PHYSICAL EXAMINATION: VITAL SIGNS: Temperature 97.5, pulse rate is 87, respiratory rate 22, blood pressure 120/58, O2 saturation 95%. T-max on admission temperature maximum was 100.0, respiratory rate on admission was as high as 26 and pulse rate on admission was as high as 106. GENERAL: More alert today, but still weak and lethargic. HEAD AND NECK: Oral exam, no thrush. Eyes, no icterus. Normocephalic. Neck is supple. No JVD. HEART: Regular. No gallop or murmur. No friction rub. ABDOMEN: Soft. Positive bowel sounds. Nontender. He has a G-tube. LUNGS: Bilateral rhonchi and rales. SKIN: No rash. MUSCULOSKELETAL: No effusions. Legs are without cellulitis. PERIPHERAL VASCULAR: No cyanosis or gangrene. Wounds were reviewed, they do not look acutely infected. GENITOURINARY: He has a Lal. Urine is slightly cloudy. LINE SITES: Without phlebitis. NEUROLOGIC: Generalized weakness and responsive but weak. LABORATORY AND DIAGNOSTIC DATA: Creatinine is 0.5. White count 8.8, hemoglobin 12.6. UA was negative. Imaging, chest x-ray shows right consolidation that is worsening, this was reviewed and noted. Blood cultures had gram-positive organisms, identification is pending. Sputum cultures pending. ASSESSMENT: 1. The patient has sepsis and shock requiring dopamine. He has fevers, SIRS criteria. The patient has what looks like pneumonia, he has high risk for aspiration and healthcare-acquired pneumonia, rule out community-acquired pneumonia. He does have a midline with gram-positive organisms, could have a line infection secondary to the midline which can get infected. At this time, I will continue vancomycin and meropenem for MRSA and gram-negative coverage. Continue vancomycin and meropenem for sepsis, shock, pneumonia, gram-positive bacteremia, pending final workup. Check blood culture and ID. Sputum culture. Followup labs and chest x-ray. Check surveillance blood cultures. In addition, I would change the midline because again this could get infected and he came in with this. The patient may need a PICC line. I discussed this with nursing staff. 2. The patient has a history of Down syndrome. 3. Wound care protocol, wounds do not look acutely infected. 4. Diastolic CHF. 5. Hypertension. 6. Hyperlipidemia. 7. Anemia. 8. Hypothyroidism 9. GERD. 10. Aortic stenosis. 11. Dysphagia and G-tube. 12. Allergies to ketamine and NSAIDs. 13. Social history is negative. 14. Family history is noncontributory. 15. MAR was noted. 16. Case discussed with RN. 17. ICU care. 18. The patient also has elevated LFTs. I think an abdominal ultrasound has been ordered, this most likely is from septic shock. 19. Continue treatment per primary consultants and ICU care and nursing staff. Rafia Rand M.D. DR: Reta JOB#: [id number] CC: ESPERANZA
[2019-07-30] VITALS (68 sets, daily range): BP systolic 55–139; BP diastolic 26–86
[2019-07-30] MEDS: Vancomycin 1.25gm/NS Premix q24h IVPB SCH ×2 (00:18→12:00)
[2019-07-30] MEDS ORDERED: Lidocaine 1% Plain 30 ml INJ PRN (05:30)
[2019-07-30] MEDS ORDERED: Heparin1,000 units/500ml Premix(Conc:2 units/ml) IV PRN (05:30)
[2019-07-30] MEDS: DOPamine 400mg/250ml 250 ML IV SCH ×2 (05:51→15:58)
[2019-07-30] MEDS ORDERED: Heparin1,000 units/500ml Premix(Conc:2 units/ml) ONE (07:00)
[2019-07-30] MEDS ORDERED: Lidocaine 1% Plain 30 ml INJ ONE (07:00)
[2019-07-30 07:08] LABS: BASOPHILS % (AUTO) 1.5 % (0.0-2.0); EOSINOPHILS % (AUTO) 1.9 % (0.0-3.0); HEMATOCRIT 33.3 % (42.0-52.0); HEMOGLOBIN 11.6 G/DL (14.2-18.0); LYMPHOCYTES % (AUTO) 24.7 % (20.0-45.0); MEAN CORPUSCULAR VOLUME 91 FL (80-99); MONOCYTES % (AUTO) 8.5 % (1.0-10.0); NEUTROPHILS % (AUTO) 63.5 % (45.0-75.0); PLATELET COUNT 357 K/UL (150-450); RED BLOOD COUNT 3.68 M/UL (4.70-6.10); RED CELL DISTRIBUTION WIDTH 13.4 % (11.6-14.8); WHITE BLOOD COUNT 7.3 K/UL (4.8-10.8)
[2019-07-30] MEDS: Heparin 5000 units/ml inj SUBQ SCH ×2 (09:17→20:39)
--- NOTE | 2019-07-30 10:35 | Diagnostic Imaging Report ---
Indication: Shortness of breath Technique: XRAY Chest 1v Comparison: 07/29/2019 Findings: Heart size and mediastinal contours are stable. Patient is rotated to the right. There are increasing opacities at the lung bases, right greater than left. Left superhilar atelectasis or scarring is unchanged. There is an development of a small right-sided pleural effusion. No radiographically appreciable pneumothorax. Osseous structures stable. Multiple surgical clips noted projecting over the region of the right elbow. Impression: Limited exam due to suboptimal positioning. Worsening aeration with increasing bilateral airspace opacities, right greater than left. Interval development of a small right pleural effusion.
[2019-07-30 12:04] LABS: ANION GAP 6 mmol/L (5-15); BLOOD UREA NITROGEN 5 mg/dL (7-18); CALCIUM 7.6 MG/DL (8.5-10.1); CARBON DIOXIDE 25 MMOL/L (21-32); CHLORIDE 102 MMOL/L (98-107); CREATININE 0.5 MG/DL (0.55-1.30); POTASSIUM 3.5 MMOL/L (3.5-5.1); SODIUM 133 MMOL/L (136-145)
--- NOTE | 2019-07-30 12:11 | Pulmonolgy Critical Care Note ---
Critical Care - Asmt/Plan Problems: (1) Severe sepsis (2) Septic shock (3) Ulcer of right heel (4) Acute and chronic respiratory failure with hypoxia (5) CHF (congestive heart failure) (6) Iron deficiency anemia (7) GERD (gastroesophageal reflux disease) (8) HTN (hypertension) (9) Hypothyroid (10) HLD (hyperlipidemia) (11) Down's syndrome (12) Aortic stenosis (13) Acute on chronic respiratory failure with hypoxia and hypercapnia Respiratory: monitor respiratory rate, adjust FIO2, ABG, other - PRN HHN's Cardiac: continue pressors - titrate DA to keep MAP > 60, other - TTE Renal: keep IV fluid, check electrolytes, other Infectious Disease: check cultures - Vanco/Newton per ID, continue antibiotics Gastrointestinal: continue feedings/current rate, other - Monitor LFT's, consider GI eval, consider HIDA Endocrine: monitor blood sugar, oral thyroid meds Hematologic: monitor H/H Neurologic: keep patient comfortable Prophylaxis: Heparin Disposition: keep in ICU Time Spent (Minutes): other - 35 Notes 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, ID Discussed with: nurses, consultants, other - DNAR/DNI Critical Care - Objective Last 24 Hour Vital Signs Date Time Temp Pulse Resp B/P (MAP) Pulse Ox O2 Delivery O2 Flow Rate FiO2 07/30/19 11:30 55/29 07/30/19 11:00 110/59 07/30/19 11:00 75 21 110/59 (76) 95 07/30/19 10:30 71 21 112/50 (70) 94 07/30/19 10:00 64 20 112/66 (81) 94 07/30/19 10:00 112/66 07/30/19 09:30 73 22 101/49 (66) 95 07/30/19 09:00 70 20 137/71 (93) 96 07/30/19 09:00 137/49 07/30/19 08:30 64 22 101/50 (67) 95 07/30/19 08:00 98.5 70 21 96/54 (68) 96 07/30/19 08:00 96/54 07/30/19 07:58 Nasal Cannula 2.0 07/30/19 07:54 100 07/30/19 07:30 63 20 100/51 (67) 95 07/30/19 07:00 98 16 96 Room Air 21 07/30/19 07:00 64 20 124/59 (80) 92 07/30/19 07:00 124/59 07/30/19 07:00 96 Room Air 21 07/30/19 06:45 67 22 108/58 (75) 91 07/30/19 06:30 72 20 126/61 (82) 95 07/30/19 06:15 67 25 106/55 (72) 95 07/30/19 06:00 63 22 130/57 (81) 94 07/30/19 06:00 130/57 07/30/19 05:51 89/58 07/30/19 05:49 65 22 89/58 (68) 96 07/30/19 05:45 70 19 75/60 (65) 99 07/30/19 05:30 76 19 108/53 (71) 99 07/30/19 05:15 68 20 90/57 (68) 92 07/30/19 05:00 66 21 99/55 (70) 94 07/30/19 05:00 99/55 07/30/19 04:45 68 20 119/60 (79) 95 07/30/19 04:30 100 25 106/71 (83) 99 07/30/19 04:15 79 25 106/81 (89) 95 07/30/19 04:00 92/75 07/30/19 04:00 97.9 75 22 92/75 (81) 96 07/30/19 04:00 Nasal Cannula 2.0 07/30/19 03:45 79 24 100/59 (73) 97 07/30/19 03:30 77 07/30/19 03:30 92 25 94/52 (66) 96 07/30/19 03:15 77 23 126/54 (78) 94 07/30/19 03:00 68 22 120/69 (86) 95 07/30/19 03:00 120/69 07/30/19 02:45 74 24 115/62 (79) 95 07/30/19 02:30 75 24 119/62 (81) 95 07/30/19 02:15 71 22 96/52 (67) 96 07/30/19 02:00 73 23 115/77 (90) 96 07/30/19 02:00 115/77 07/30/19 01:45 76 19 128/86 (100) 96 07/30/19 01:30 84 21 95/50 (65) 96 07/30/19 01:15 77 23 97/60 (72) 97 07/30/19 01:00 97/60 07/30/19 01:00 68 23 105/62 (76) 96 07/30/19 00:00 76 21 109/40 (63) 96 07/30/19 00:00 Nasal Cannula 2.0 07/30/19 00:00 109/40 07/29/19 23:30 68 22 107/47 (67) 96 07/29/19 23:15 66 20 116/51 (72) 95 07/29/19 23:03 68 07/29/19 23:00 71 20 98/85 (89) 100 07/29/19 23:00 98/85 07/29/19 22:45 69 24 128/53 (78) 96 07/29/19 22:30 68 23 103/55 (71) 95 07/29/19 22:15 73 26 105/79 (88) 94 07/29/19 22:00 65 19 128/59 (82) 95 07/29/19 22:00 128/59 07/29/19 21:45 66 16 117/104 (108) 96 07/29/19 21:30 85 21 99/59 (72) 95 07/29/19 21:15 67 19 103/88 (93) 95 07/29/19 21:00 74 22 120/54 (76) 100 07/29/19 21:00 120/54 07/29/19 20:45 67 22 109/55 (73) 100 07/29/19 20:30 67 21 99/48 (65) 97 07/29/19 20:25 117/52 07/29/19 20:23 66 17 117/52 (73) 96 07/29/19 20:15 67 19 115/71 (86) 94 07/29/19 20:00 97.7 68 20 121/54 (76) 94 07/29/19 20:00 121/54 07/29/19 20:00 Nasal Cannula 2.0 07/29/19 19:49 64 07/29/19 19:45 70 17 115/89 (98) 96 07/29/19 19:30 65 22 108/57 (74) 100 07/29/19 19:15 79 23 127/66 (86) 96 07/29/19 19:00 131/55 07/29/19 19:00 66 20 131/55 (80) 97 07/29/19 18:55 70 18 97 Room Air 21 07/29/19 18:55 97 Room Air 21 07/29/19 18:00 72 24 105/54 (71) 95 07/29/19 18:00 105/54 07/29/19 17:30 70 18 109/57 (74) 95 07/29/19 17:00 110/77 07/29/19 17:00 99 24 110/77 (88) 97 07/29/19 16:30 64 20 113/32 (59) 94 07/29/19 16:00 Nasal Cannula 2.0 07/29/19 16:00 120/58 07/29/19 16:00 66 07/29/19 16:00 97.5 87 22 120/58 (78) 95 07/29/19 15:30 69 20 92/70 (77) 96 07/29/19 15:00 106/57 07/29/19 15:00 76 24 106/57 (73) 96 07/29/19 14:30 64 20 113/49 (70) 91 07/29/19 14:00 73 22 127/54 (78) 93 07/29/19 14:00 127/54 07/29/19 13:45 66/54 07/29/19 13:30 100/57 07/29/19 13:30 66 18 100/57 (71) 92 07/29/19 13:15 123/50 07/29/19 13:00 124/45 07/29/19 13:00 97.7 71 18 124/45 (71) 94 07/29/19 12:50 103/81 07/29/19 12:30 68 22 103/81 (88) 94 Status: awake - minimall verbal Condition: critical HEENT: atraumatic, normocephalic Lungs: rhonchi Heart: HR/BP unstable Abdomen: soft, non-tender, active bowel sounds Extremities: no C/C/E Decubiti: location - sac, stage - DTI Micro: Microbiology Date/Time Source Procedure Growth Status 07/28/19 08:40 Blood Blood Culture - Preliminary Resulted 07/28/19 08:02 Blood Blood Culture - Preliminary Staphylococcus Species Gram Positive Cocci Resulted 07/29/19 17:10 Sputum Induced Gram Stain - Final Resulted 07/29/19 17:10 Sputum Induced Sputum Culture Pending Resulted 07/28/19 10:55 Nasal Nares MRSA Culture - Final Staphylococcus Aureus - Mrsa Complete 07/28/19 10:55 Rectum - Final NO CARBAPENEM-RESISTANT ENTEROBACTERI... Complete 07/28/19 10:55 Rectal Mucosa VRE Culture - Final Enterococcus Faecalis - Vre Complete Blood Sugars: BS controlled Critical Care - Subjective ROS Limited/Unobtainable: Yes ICU Day: 3 Interval Events: S aureus in blood Awaiting PICC Condition: critical IV Access: central - mid line EKG Rhythm: Sinus Rhythm FI02: 21 Sputum Amount: None Fluids: NS@125 Drips: DA 10 Tube Feeding Amount: 40 I&O: Intake and Output 07/29/19 07/30/19 19:00 07:00 Intake Total 1880.6323 ml 2067.150 ml Output Total 2875 ml 3350 ml Balance -994.3677 ml -1282.850 ml Intake Free Water 20 ml IV Total 1800.6323 ml 1837.150 ml Tube Feeding 50 ml 230 ml Other 10 ml Output Urine Total 2875 ml 3350 ml Subjective: GISELLE CXR: PVC and b inf Labs: Laboratory Tests Test 07/29/19 17:00 07/30/19 05:45 07/30/19 11:15 White Blood Count 7.3 K/UL (4.8-10.8) 7.3 K/UL (4.8-10.8) Red Blood Count 3.85 M/UL (4.70-6.10) L 3.68 M/UL (4.70-6.10) L Hemoglobin 12.3 G/DL (14.2-18.0) L 11.6 G/DL (14.2-18.0) L Hematocrit 34.0 % (42.0-52.0) L 33.3 % (42.0-52.0) L Mean Corpuscular Volume 88 FL (80-99) 91 FL (80-99) Mean Corpuscular Hemoglobin 31.8 PG (27.0-31.0) H 31.5 PG (27.0-31.0) H Mean Corpuscular Hemoglobin Concent 36.0 G/DL (32.0-36.0) 34.8 G/DL (32.0-36.0) Red Cell Distribution Width 12.6 % (11.6-14.8) 13.4 % (11.6-14.8) Platelet Count 321 K/UL (150-450) 357 K/UL (150-450) Mean Platelet Volume 5.6 FL (6.5-10.1) L 5.7 FL (6.5-10.1) L Neutrophils (%) (Auto) 61.5 % (45.0-75.0) 63.5 % (45.0-75.0) Lymphocytes (%) (Auto) 27.3 % (20.0-45.0) 24.7 % (20.0-45.0) Monocytes (%) (Auto) 8.6 % (1.0-10.0) 8.5 % (1.0-10.0) Eosinophils (%) (Auto) 0.6 % (0.0-3.0) 1.9 % (0.0-3.0) Basophils (%) (Auto) 2.0 % (0.0-2.0) 1.5 % (0.0-2.0) Sodium Level 135 MMOL/L (136-145) L 133 MMOL/L (136-145) L Potassium Level 3.2 MMOL/L (3.5-5.1) L 3.5 MMOL/L (3.5-5.1) Chloride Level 104 MMOL/L (98-107) 102 MMOL/L (98-107) Carbon Dioxide Level 25 MMOL/L (21-32) 25 MMOL/L (21-32) Anion Gap 6 mmol/L (5-15) 6 mmol/L (5-15) Blood Urea Nitrogen 6 mg/dL (7-18) L 5 mg/dL (7-18) L Creatinine 0.5 MG/DL (0.55-1.30) L 0.5 MG/DL (0.55-1.30) L Estimat Glomerular Filtration Rate > 60 mL/min (>60) > 60 mL/min (>60) Glucose Level 114 MG/DL (74-106) H 123 MG/DL (74-106) H Calcium Level 7.2 MG/DL (8.5-10.1) L 7.6 MG/DL (8.5-10.1) L Total Bilirubin 1.0 MG/DL (0.2-1.0) Pending Aspartate Amino Transf (AST/SGOT) 333 U/L (15-37) H Pending Alanine Aminotransferase (ALT/SGPT) 698 U/L (12-78) H Pending Alkaline Phosphatase 99 U/L (46-116) Pending Total Protein 7.5 G/DL (6.4-8.2) Pending Albumin 2.2 G/DL (3.4-5.0) L Pending Globulin 5.3 g/dL Pending Albumin/Globulin Ratio 0.4 (1.0-2.7) L Vancomycin Level Trough Pending Yovani Luevano MD Jul 30, 2019 12:11
[2019-07-30 12:14] LABS: ALANINE AMINOTRANSFERASE 628 U/L (12-78); ALBUMIN 2.2 G/DL (3.4-5.0); ALBUMIN/GLOBULIN RATIO 0.4 (1.0-2.7); ALKALINE PHOSPHATASE 111 U/L (46-116); ASPARTATE AMINO TRANSFERASE 268 U/L (15-37); BILIRUBIN,DIRECT 0.5 MG/DL (0.0-0.3); BILIRUBIN,TOTAL 1.1 MG/DL (0.2-1.0)
[2019-07-30] MEDS: Midodrine 10mg tab ORAL SCH ×2 (12:15→18:22)
--- NOTE | 2019-07-30 13:03 | General Progress Note ---
Assessment/Plan Status: progressing, other - critical Assessment/Plan: 54-year-old male, [facility] resident Down syndrome, diastolic CHF, hypertension,hyperlipidemia, iron deficiency anemia, hypothyroidism, GERD, aortic stenosis, bilateral foot pressure ulcers, dysphagia s/p PEG presenting with altered mental status and hypoxia being admitted with septic shock likely secondary to pneumonia and possible abdominal source given elevated LFTs, though could be due to hypotension. CT abdomen pelvis without any source for infection. #Shock likely hypovolemic and septic #Healthcare associated pneumonia Aggressive IV fluid hydration. peripheral dopamine. Patient has a midline that could be used for levophed if needed. titrate dopamine for map 60. d/w Dr. Luevano. Decrease IV NS rate Continue home midodrine- d/w rn Broad spectrum antibiotics with vancomycin and meropenem per ID consult . case d /w Dr. Serrano follow up blood and sputum cultures Pulmonary consult with Dr. Luevano. case d/w AM cortisol --> 12.7 #toxic metabolic encephalopathy- improving Monitor mental status, treat sepsis #hypotonic hyponatremia- corrected continue to monitor #Abnormal LFTs -right upper quadrant ultrasound- reviewed, no acute pathology -Trend LFTs - Upon reviewing the chart, on previous admission hepatitis B surface antigen, hepatitis B core total antibody and hepatitis Be antibody was positive. liver function tests were normal. Patient was referred to follow up outpatient. -GI consult regarding hepatitis B treatment. d/w kb # Dysphagia, status post G-tube #GERD resume tube feeds #Down syndrome. #Diastolic CHF- not in exacerbation #hypertension- hypotensive now #hyperlipidemia # hypovolemic Hold BP meds #iron deficiency anemia H/H stable continue to monitor #hypothyroidism -Continue Synthroid, follow up TSH- normal #Bilateral wounds and pressure ulcers to the heels wound care consult with Dr. Ruffin, surgery off loading turning q2 hr VTE ppx: heparin subcutaneous. GI ppx: IV PPI Diet: tube feeds Code status, DNI, however can resuscitate disposition: Keep in ICU I spent 75 minutes on this patient's case, and 40 mins was dedicated to critical care Critical Care Services performed include: Telemetry Review Hemodynamic measurement interpretation Laboratory data review and interpretation Radiology image review and interpretation Interpretation of ABG's Discussion of patient's care with ICU team, ICU Nursing staff and/or consulting services time of this note may not reflect time of encounter. Subjective Date patient seen: Jul 30, 2019 ROS Limited/Unobtainable: Yes Allergies: Coded Allergies: KETAMINE (Verified Allergy, Unknown, 05/29/19) NSAIDS (NON-STEROIDAL ANTI-INFLAMMA (Verified Allergy, Unknown, 05/29/19) Subjective remains in ICU, awake but nn verbal (baseline), on dopamine drip and receiving IV NS. Objective Last 24 Hour Vital Signs Date Time Temp Pulse Resp B/P (MAP) Pulse Ox O2 Delivery O2 Flow Rate FiO2 07/30/19 12:30 65 13 113/58 (76) 95 07/30/19 12:00 124/62 07/30/19 12:00 Room Air 07/30/19 12:00 97.5 69 19 99/83 (88) 95 07/30/19 12:00 77 07/30/19 11:30 55/29 07/30/19 11:30 76 21 55/29 (38) 95 07/30/19 11:00 110/59 07/30/19 11:00 75 21 110/59 (76) 95 07/30/19 10:30 71 21 112/50 (70) 94 07/30/19 10:00 64 20 112/66 (81) 94 07/30/19 10:00 112/66 07/30/19 09:30 73 22 101/49 (66) 95 07/30/19 09:00 70 20 137/71 (93) 96 07/30/19 09:00 137/49 07/30/19 08:30 64 22 101/50 (67) 95 07/30/19 08:00 98.5 70 21 96/54 (68) 96 07/30/19 08:00 96/54 07/30/19 07:58 Nasal Cannula 2.0 07/30/19 07:54 100 07/30/19 07:30 63 20 100/51 (67) 95 07/30/19 07:00 98 16 96 Room Air 21 07/30/19 07:00 64 20 124/59 (80) 92 07/30/19 07:00 124/59 07/30/19 07:00 96 Room Air 21 07/30/19 06:45 67 22 108/58 (75) 91 07/30/19 06:30 72 20 126/61 (82) 95 07/30/19 06:15 67 25 106/55 (72) 95 07/30/19 06:00 63 22 130/57 (81) 94 07/30/19 06:00 130/57 07/30/19 05:51 89/58 07/30/19 05:49 65 22 89/58 (68) 96 07/30/19 05:45 70 19 75/60 (65) 99 07/30/19 05:30 76 19 108/53 (71) 99 07/30/19 05:15 68 20 90/57 (68) 92 07/30/19 05:00 66 21 99/55 (70) 94 07/30/19 05:00 99/55 07/30/19 04:45 68 20 119/60 (79) 95 07/30/19 04:30 100 25 106/71 (83) 99 07/30/19 04:15 79 25 106/81 (89) 95 07/30/19 04:00 92/75 07/30/19 04:00 97.9 75 22 92/75 (81) 96 07/30/19 04:00 Nasal Cannula 2.0 07/30/19 03:45 79 24 100/59 (73) 97 07/30/19 03:30 77 07/30/19 03:30 92 25 94/52 (66) 96 07/30/19 03:15 77 23 126/54 (78) 94 07/30/19 03:00 68 22 120/69 (86) 95 07/30/19 03:00 120/69 07/30/19 02:45 74 24 115/62 (79) 95 07/30/19 02:30 75 24 119/62 (81) 95 07/30/19 02:15 71 22 96/52 (67) 96 07/30/19 02:00 73 23 115/77 (90) 96 07/30/19 02:00 115/77 07/30/19 01:45 76 19 128/86 (100) 96 07/30/19 01:30 84 21 95/50 (65) 96 07/30/19 01:15 77 23 97/60 (72) 97 07/30/19 01:00 97/60 07/30/19 01:00 68 23 105/62 (76) 96 07/30/19 00:00 76 21 109/40 (63) 96 07/30/19 00:00 Nasal Cannula 2.0 07/30/19 00:00 109/40 07/29/19 23:30 68 22 107/47 (67) 96 07/29/19 23:15 66 20 116/51 (72) 95 07/29/19 23:03 68 07/29/19 23:00 71 20 98/85 (89) 100 07/29/19 23:00 98/85 07/29/19 22:45 69 24 128/53 (78) 96 07/29/19 22:30 68 23 103/55 (71) 95 07/29/19 22:15 73 26 105/79 (88) 94 07/29/19 22:00 65 19 128/59 (82) 95 07/29/19 22:00 128/59 07/29/19 21:45 66 16 117/104 (108) 96 07/29/19 21:30 85 21 99/59 (72) 95 07/29/19 21:15 67 19 103/88 (93) 95 07/29/19 21:00 74 22 120/54 (76) 100 07/29/19 21:00 120/54 07/29/19 20:45 67 22 109/55 (73) 100 07/29/19 20:30 67 21 99/48 (65) 97 07/29/19 20:25 117/52 07/29/19 20:23 66 17 117/52 (73) 96 07/29/19 20:15 67 19 115/71 (86) 94 07/29/19 20:00 97.7 68 20 121/54 (76) 94 07/29/19 20:00 121/54 07/29/19 20:00 Nasal Cannula 2.0 07/29/19 19:49 64 07/29/19 19:45 70 17 115/89 (98) 96 07/29/19 19:30 65 22 108/57 (74) 100 07/29/19 19:15 79 23 127/66 (86) 96 07/29/19 19:00 131/55 07/29/19 19:00 66 20 131/55 (80) 97 07/29/19 18:55 70 18 97 Room Air 21 07/29/19 18:55 97 Room Air 21 07/29/19 18:00 72 24 105/54 (71) 95 07/29/19 18:00 105/54 07/29/19 17:30 70 18 109/57 (74) 95 07/29/19 17:00 110/77 07/29/19 17:00 99 24 110/77 (88) 97 07/29/19 16:30 64 20 113/32 (59) 94 07/29/19 16:00 Nasal Cannula 2.0 07/29/19 16:00 120/58 07/29/19 16:00 66 07/29/19 16:00 97.5 87 22 120/58 (78) 95 07/29/19 15:30 69 20 92/70 (77) 96 07/29/19 15:00 106/57 07/29/19 15:00 76 24 106/57 (73) 96 07/29/19 14:30 64 20 113/49 (70) 91 07/29/19 14:00 73 22 127/54 (78) 93 07/29/19 14:00 127/54 07/29/19 13:45 66/54 07/29/19 13:30 100/57 07/29/19 13:30 66 18 100/57 (71) 92 07/29/19 13:15 123/50 Intake and Output 07/29/19 07/30/19 18:59 06:59 Intake Total 1949.2723 ml 2077.150 ml Output Total 2805 ml 3070 ml Balance -855.7277 ml -992.850 ml Intake Free Water 20 ml IV Total 1879.2723 ml 1837.150 ml Tube Feeding 40 ml 240 ml Other 10 ml Output Urine Total 2805 ml 3070 ml Laboratory Tests 07/29/19 17:00: White Blood Count 7.3, Red Blood Count 3.85L, Hemoglobin 12.3L, Hematocrit 34.0L , Mean Corpuscular Volume 88, Mean Corpuscular Hemoglobin 31.8H, Mean Corpuscular Hemoglobin Concent 36.0, Red Cell Distribution Width 12.6, Platelet Count 321, Mean Platelet Volume 5.6L, Neutrophils (%) (Auto) 61.5, Lymphocytes ( %) (Auto) 27.3, Monocytes (%) (Auto) 8.6, Eosinophils (%) (Auto) 0.6, Basophils (%) (Auto) 2.0, Sodium Level 135L, Potassium Level 3.2L, Chloride Level 104, Carbon Dioxide Level 25, Anion Gap 6, Blood Urea Nitrogen 6L, Creatinine 0.5L, Estimat Glomerular Filtration Rate > 60, Glucose Level 114H, Calcium Level 7.2L , Total Bilirubin 1.0, Aspartate Amino Transf (AST/SGOT) 333H, Alanine Aminotransferase (ALT/SGPT) 698H, Alkaline Phosphatase 99, Total Protein 7.5, Albumin 2.2L, Globulin 5.3, Albumin/Globulin Ratio 0.4L 07/30/19 05:45: White Blood Count 7.3, Red Blood Count 3.68L, Hemoglobin 11.6L, Hematocrit 33.3L , Mean Corpuscular Volume 91, Mean Corpuscular Hemoglobin 31.5H, Mean Corpuscular Hemoglobin Concent 34.8, Red Cell Distribution Width 13.4, Platelet Count 357, Mean Platelet Volume 5.7L, Neutrophils (%) (Auto) 63.5, Lymphocytes ( %) (Auto) 24.7, Monocytes (%) (Auto) 8.5, Eosinophils (%) (Auto) 1.9, Basophils (%) (Auto) 1.5 07/30/19 11:15: Sodium Level 133L, Potassium Level 3.5, Chloride Level 102, Carbon Dioxide Level 25, Anion Gap 6, Blood Urea Nitrogen 5L, Creatinine 0.5L, Estimat Glomerular Filtration Rate > 60, Glucose Level 123H, Calcium Level 7.6L, Total Bilirubin 1.1H, Aspartate Amino Transf (AST/SGOT) 268H, Alanine Aminotransferase (ALT/SGPT) 628H, Alkaline Phosphatase 111, Total Protein 7.2, Albumin 2.2L, Globulin 5.0, Albumin/Globulin Ratio 0.4L, Direct Bilirubin 0.5H, Vancomycin Level Trough 24.6H 07/30/19 12:28: Arterial Blood pH 7.450, Arterial Blood Partial Pressure CO2 32.7L, Arterial Blood Partial Pressure O2 70.4L, Arterial Blood HCO3 22.2, Arterial Blood Oxygen Saturation 94.5L, Arterial Blood Base Excess -1.1, Jonathan Test Positive Height (Feet): 5 Height (Inches): 4.00 Weight (Pounds): 128 Objective General Appearance: no apparent distress, awake, non verbal Head: normocephalic, atraumatic Eyes: bilateral PERRL ENT: dry mucus membranes Neck: supple, no jvd Respiratory: rhonchi Cardiovascular : regular rate, rhythm, no m/r/g, ext: No edema Gastrointestinal: non tender, soft, +peg, Open blood blister in close proximity to GT . Musculoskeletal: moving extremities, muscle atrophy Neurologic: unable to assess, due to not following commands Skin: stage 2 ulcer right heel Matty Hernandez M.D. Jul 30, 2019 13:03
--- NOTE | 2019-07-30 13:43 | GI Initial Consult Note ---
History of Present Illness General Date patient seen: Jul 30, 2019 Time patient seen: 13:34 Reason for Hospitalization: Abnormal Labs Referring physician: MAMIE Reason for Consultation: ELEVATED LFTs Present Illness HPI Patient presents from nursing facility with reports of high sodium level Upon arrival patient also has significantly elevated blood pressure Patient himself is not verbal cannot produce appropriate history This does limit the history of present illness There was no reports of vomiting or diarrhea Unclear regarding any change in medications GI consulted for elevated LFTs. Patient known to us from previous admission with history of dysphasia status post PEG placement back in June 12, 2019. During the patient's last admission, hepatitis B surface antigen, hepatitis B core total antibody and hepatitis Be antibody was positive. The patient presents today with increasing LFTs since last admission; total bilirubin 1.1, AST 268, ALT 628, alkaline phosphatase 111. In addition, discussion with RN noted patient has not had a bowel movement. Home Meds Reported Medications Levothyroxine Sodium* (SYNTHROID*) 25 Mcg Tablet, 50 MCG PEG DAILY, TAB Take in the morning on an empty stomach, at least 30 minutes before food. 07/28/19 Sodium Bicarbonate (SODIUM BICARBONATE) 325 Mg Tablet, 1 GM PO BID, TAB 07/28/19 [santyl ointment] No Conflict Check, TOPIC DAILY 07/28/19 Famotidine* (Pepcid 20mg tablet*) 20 Mg Tablet, 20 MG PEG DAILY, #30 TAB 0 Refills 07/28/19 Acetaminophen* (ACETAMINOPHEN 325MG TABLET*) 325 Mg Tablet, 650 MG ORAL Q6H PRN for Prn Headache/Temp > 101, TAB 07/28/19 Magnesium Hydroxide* (MILK OF MAGNESIA*) 400 Mg/5 Ml Oral.susp, 30 ML PEG DAILY , ML 05/29/19 Midodrine* (PROAMATINE*) 5 Mg Tablet, 5 MG PEG THREE TIMES A DAY, TAB 05/29/19 Megestrol Acetate (Megestrol Acetate) 400 Mg/10 Ml Oral.susp, 400 MG GT, ML 05/29/19 Heparin Sodium,Porcine (HEPARIN SODIUM) 5,000 Unit/1 Ml Cartridge, 5000 UNIT IJ Q12HR 05/29/19 Na Phos,M-B/Na Phos,Di-Ba* (FLEET ENEMA*) 133 Ml Enema, 133 ML RECTAL DAILY, ML 0 Refills 05/29/19 Ferrous Sulfate* (FERROUS SULFATE*) 325 Mg Tablet, 325 MG PEG DAILY, #30 TAB 0 Refills 05/29/19 Bisacodyl (DULCOLAX) 10 Mg Supp.rect, 10 MG RC, SUPP 05/29/19 Discontinued Reported Medications Levothyroxine Sodium (Synthroid) 50 Mcg Tablet, 50 MCG ORAL Mon, Wed, Fri, Sun, TAB Take in the morning on an empty stomach, at least 30 minutes beforefood. 05/30/19 Albuterol Sulfate (VENTOLIN HFA) 18 Gm Hfa.aer.ad, 1 PUFF INH EVERY 6 HOURS, # 18 GM 0 Refills 05/29/19 Tramadol Hcl* (ULTRAM*) 50 Mg Tablet, 50 MG ORAL Q6H PRN for For Pain, #12 TAB 0 Refills 05/29/19 Levothyroxine Sodium* (SYNTHROID*) 25 Mcg Tablet, 25 MCG ORAL Tues, Thurs, Sat, TAB Take in the morning on an empty stomach, at least 30 minutes before food. 05/29/19 Calcium Carbonate/Vitamin D3 (Oyster Shell Calcium + D Cplt) 1 Each Tablet, 1 EACH PO, TAB 05/29/19 Omeprazole (OMEPRAZOLE) 20 Mg Tablet.dr, 20 MG ORAL DAILY, TAB 05/29/19 Multivit &Minerals/Ferrous Fum (COMPLETE MULTIVIT-MINERAL LIQ) 9 Mg/15 Ml Liquid , 9 MG PO, ML 05/29/19 Docusate Sodium* (DOCUSATE SODIUM*) 100 Mg Capsule, 100 MG ORAL THREE TIMES A DAY, CAP 05/29/19 Cyanocobalamin (Vitamin B-12) 100 Mcg Tablet, 100 MCG ORAL DAILY, #30 TAB 0 Refills 05/29/19 Atorvastatin Calcium* (LIPITOR*) 10 Mg Tablet, 10 MG ORAL BEDTIME, TAB 05/29/19 Ascorbic Acid* (ASCORBIC ACID*) 500 Mg Tablet, 500 MG ORAL DAILY, TAB 05/29/19 Ammonium Lactate (AMMONIUM LACTATE) 385 Gm Cream..g., 385 GM TP, GM 05/29/19 Discontinued Scripts Polyethylene Glycol 3350 (MIRALAX) 119 Gm Powder, 17 GM ORAL BEDTIME for 30 Days , #30 GM Prov:Joseph Durán D.O. 06/16/19 Thiamine Mononitrate (VITAMIN B-1) 100 Mg Tablet, 100 MCG NG DAILY for 30 Days, #30 TAB Prov:Joseph Durán D.O. 06/16/19 [[facility] pharmacy to dose] 1 EA MISC No Conflict Check, 1 EA MISC DAILY PRN for 4 Days, #4 Prov:Joseph Durán D.O. 06/16/19 Zinc Sulfate (ZINC SULFATE*) 220 Mg Capsule, 220 MG NG DAILY for 30 Days, #30 CAP Prov:Joseph Durán D.O. 06/16/19 Vancomycin/Water For Inj (Peg) (Vancomycin 1 Gram/200 ml Bag) 1 Gm/200 Ml Piggyback, 1 GM IV DAILY for 4 Days, BAG Prov:Joseph Durán D.O. 06/16/19 Meropenem (Merrem) 1 Gm Vial, 1 GM IV Q8HR for 4 Days, VIAL Prov:Joseph Durán D.O. 06/16/19 Fluconazole* (DIFLUCAN*) 100 Mg Tablet, 400 MG ORAL DAILY for 4 Days, #4 TAB Prov:Joseph Durán D.O. 06/16/19 Med list reviewed/reconciled: Yes Allergies: Coded Allergies: KETAMINE (Verified Allergy, Unknown, 05/29/19) NSAIDS (NON-STEROIDAL ANTI-INFLAMMA (Verified Allergy, Unknown, 05/29/19) Patient History Limited by: medical condition History Provided By: Medical Record PMH Narrative Limited by: medical condition Past Medical History: see triage record Reviewed Nursing Documentation: PMH: Agreed; PSxH: Agreed Nursing Documentation-PMH Hx Hypertension: Yes Social History: Denies: smoking, alcohol use, drug use, other Review of Systems All Other Systems: limited Physical Exam Vital Signs Date Time Temp Pulse Resp B/P (MAP) Pulse Ox O2 Delivery O2 Flow Rate FiO2 07/28/19 07:51 98.2 88 16 110/70 (83) 97 07/28/19 08:00 Nasal Cannula 4.0 07/28/19 19:11 36 Sp02 EP Interpretation: reviewed, normal Labs Laboratory Tests Test 07/29/19 17:00 07/30/19 05:45 07/30/19 11:15 07/30/19 12:28 White Blood Count 7.3 K/UL (4.8-10.8) 7.3 K/UL (4.8-10.8) Red Blood Count 3.85 M/UL (4.70-6.10) L 3.68 M/UL (4.70-6.10) L Hemoglobin 12.3 G/DL (14.2-18.0) L 11.6 G/DL (14.2-18.0) L Hematocrit 34.0 % (42.0-52.0) L 33.3 % (42.0-52.0) L Mean Corpuscular Volume 88 FL (80-99) 91 FL (80-99) Mean Corpuscular Hemoglobin 31.8 PG (27.0-31.0) H 31.5 PG (27.0-31.0) H Mean Corpuscular Hemoglobin Concent 36.0 G/DL (32.0-36.0) 34.8 G/DL (32.0-36.0) Red Cell Distribution Width 12.6 % (11.6-14.8) 13.4 % (11.6-14.8) Platelet Count 321 K/UL (150-450) 357 K/UL (150-450) Mean Platelet Volume 5.6 FL (6.5-10.1) L 5.7 FL (6.5-10.1) L Neutrophils (%) (Auto) 61.5 % (45.0-75.0) 63.5 % (45.0-75.0) Lymphocytes (%) (Auto) 27.3 % (20.0-45.0) 24.7 % (20.0-45.0) Monocytes (%) (Auto) 8.6 % (1.0-10.0) 8.5 % (1.0-10.0) Eosinophils (%) (Auto) 0.6 % (0.0-3.0) 1.9 % (0.0-3.0) Basophils (%) (Auto) 2.0 % (0.0-2.0) 1.5 % (0.0-2.0) Sodium Level 135 MMOL/L (136-145) L 133 MMOL/L (136-145) L Potassium Level 3.2 MMOL/L (3.5-5.1) L 3.5 MMOL/L (3.5-5.1) Chloride Level 104 MMOL/L (98-107) 102 MMOL/L (98-107) Carbon Dioxide Level 25 MMOL/L (21-32) 25 MMOL/L (21-32) Anion Gap 6 mmol/L (5-15) 6 mmol/L (5-15) Blood Urea Nitrogen 6 mg/dL (7-18) L 5 mg/dL (7-18) L Creatinine 0.5 MG/DL (0.55-1.30) L 0.5 MG/DL (0.55-1.30) L Estimat Glomerular Filtration Rate > 60 mL/min (>60) > 60 mL/min (>60) Glucose Level 114 MG/DL (74-106) H 123 MG/DL (74-106) H Calcium Level 7.2 MG/DL (8.5-10.1) L 7.6 MG/DL (8.5-10.1) L Total Bilirubin 1.0 MG/DL (0.2-1.0) 1.1 MG/DL (0.2-1.0) H Aspartate Amino Transf (AST/SGOT) 333 U/L (15-37) H 268 U/L (15-37) H Alanine Aminotransferase (ALT/SGPT) 698 U/L (12-78) H 628 U/L (12-78) H Alkaline Phosphatase 99 U/L (46-116) 111 U/L (46-116) Total Protein 7.5 G/DL (6.4-8.2) 7.2 G/DL (6.4-8.2) Albumin 2.2 G/DL (3.4-5.0) L 2.2 G/DL (3.4-5.0) L Globulin 5.3 g/dL 5.0 g/dL Albumin/Globulin Ratio 0.4 (1.0-2.7) L 0.4 (1.0-2.7) L Direct Bilirubin 0.5 MG/DL (0.0-0.3) H Vancomycin Level Trough 24.6 ug/mL (5.0-12.0) H Arterial Blood pH 7.450 (7.350-7.450) Arterial Blood Partial Pressure CO2 32.7 mmHg (35.0-45.0) L Arterial Blood Partial Pressure O2 70.4 mmHg (75.0-100.0) L Arterial Blood HCO3 22.2 mmol/L (22.0-26.0) Arterial Blood Oxygen Saturation 94.5 % (95-100) L Arterial Blood Base Excess -1.1 (-2-2) Jonathan Test Positive General Appearance: no apparent distress Head: normocephalic EENT: PERRL/EOMI, normal ENT inspection Neck: supple Respiratory: normal breath sounds, no respiratory distress Cardiovascular: normal rate Gastrointestinal: normal inspection, non tender, soft, normal bowel sounds, non -distended, gt Rectal: deferred Genitourinary: deferred Neurologic: alert, responsive, normal inspection Psychiatric: memory normal Skin: normal inspection, normal color, no rash, warm/dry, palpation normal, well hydrated Lymphatic: normal inspection, no adenopathy Current Medications Current Medications Medications (Trade) Dose Ordered Sig/Kendra Route PRN Reason Start Time Stop Time Status Last Admin Dose Admin Acetaminophen (Tylenol) 650 mg Q4H PRN ORAL Mild Pain (Pain Scale 1-3) 07/28/19 12:15 08/27/19 12:14 Acetaminophen (Tylenol) 650 mg Q4H PRN ORAL fever 07/28/19 12:15 08/27/19 12:14 Albuterol/ Ipratropium (Albuterol/ Ipratropium) 3 ml Q4H PRN HHN Shortness of Breath 07/28/19 12:15 08/02/19 12:14 Chlorhexidine Gluconate (Judi-Hex 2%) 1 applic DAILY@2000 TOPIC 07/30/19 20:00 08/29/19 19:59 Dextrose (Dextrose 50%) 25 ml Q30M PRN IV Hypoglycemia 07/28/19 12:15 08/27/19 12:14 Dextrose (Dextrose 50%) 50 ml Q30M PRN IV Hypoglycemia 07/28/19 12:15 08/27/19 12:14 Dopamine HCl/ Dextrose 250 ml @ 0 mls/hr Q24H IV 07/28/19 19:00 08/27/19 18:59 07/30/19 05:51 Heparin Sodium (Porcine) (Heparin 5000 units/ml) 5,000 units EVERY 12 HOURS SUBQ 07/28/19 21:00 08/27/19 20:59 07/30/19 09:17 Heparin Sodium/ Sodium Chloride (Heparin 1000 units/500ml Premix) 1,000 unit ONCE PRN IV Picc line placement 07/30/19 05:30 08/01/19 05:29 Hydromorphone HCl (Dilaudid) 1 mg Q4H PRN IVP Moderate Pain (Pain Scale 4-6) 07/28/19 12:15 08/04/19 12:14 Hydromorphone HCl (Dilaudid) 2 mg Q4H PRN IVP Severe Pain (Pain Scale 7-10) 07/28/19 12:15 08/04/19 12:14 Levothyroxine Sodium (Synthroid) 50 mcg DAILY@0630 ORAL 07/30/19 06:30 08/29/19 06:29 07/30/19 06:22 Lidocaine HCl (Xylocaine 1% 30ml) 30 ml ONCE PRN INJ PICC line placement 07/30/19 05:30 08/01/19 05:29 Meropenem 1 gm/ Sodium Chloride 100 ml @ 200 mls/hr Q8H IVPB 07/28/19 20:00 08/02/19 19:59 07/30/19 12:15 Midodrine (Pro-Amatine) 5 mg THREE TIMES A DAY ORAL 07/30/19 13:00 08/29/19 12:59 07/30/19 12:15 Sodium Chloride 1,000 ml @ 125 mls/hr Q8H IV 07/29/19 09:00 08/28/19 08:59 07/30/19 09:16 Vancomycin HCl (Vanco rx to dose) 1 ea DAILY PRN MISC Per rx protocol 07/28/19 12:00 08/27/19 11:59 Vancomycin HCl 1 gm/Dextrose 275 ml @ 183.708 mls/hr Q12HR IVPB 07/30/19 21:00 08/04/19 20:59 GI: Plan Problems: (1) Hepatitis B (2) Iron deficiency anemia (3) GERD (gastroesophageal reflux disease) (4) Down's syndrome Plan rising LFTs 2/2 to Hepatitis B GT dependent constipation start patient on Lamivudine 100mg GT BID >> discussed with pharmacist, non- formulary will need script for outpatient treatment send for Hep B DNA start GTFs per RD anemia panel prn transfusions PPI repeat liver function tests Discussed with Dr. Rubio. Thank you for this patient referral, we will follow. The patient was seen and examined at bedside and all new and available data was reviewed in the patients chart. I agree with the above findings, impression and plan. (Patient seen earlier today. Signature stamp does not reflect patient encounter time.). - MD Kamryn PainterC[facility] Jul 30, 2019 13:43
--- NOTE | 2019-07-30 19:41 | Surgery Progress Note ---
Surgery Progress Note Subjective Additional Comments seemingly more comfortable labs noted lfts trending up Objective Last 24 Hour Vital Signs Date Time Temp Pulse Resp B/P (MAP) Pulse Ox O2 Delivery O2 Flow Rate FiO2 07/30/19 19:30 73 23 127/59 (81) 94 07/30/19 19:15 74 21 139/38 (71) 95 07/30/19 19:00 77 18 132/45 (74) 96 07/30/19 18:00 73 25 94/35 (54) 97 07/30/19 17:30 69 21 115/33 (60) 94 07/30/19 17:00 65 20 120/40 (66) 96 07/30/19 17:00 108/43 07/30/19 16:30 65 20 120/40 (66) 96 07/30/19 16:00 70 07/30/19 16:00 Nasal Cannula 2.0 07/30/19 16:00 131/38 07/30/19 16:00 98.2 69 19 131/36 (67) 95 07/30/19 15:58 140/43 07/30/19 15:45 140/43 07/30/19 15:30 66 19 78/27 (44) 93 07/30/19 15:30 78/27 07/30/19 15:00 112/28 07/30/19 15:00 72 21 112/28 (56) 93 07/30/19 14:45 117/39 07/30/19 14:30 138/44 07/30/19 14:30 66 20 138/44 (75) 94 07/30/19 14:00 88 20 137/37 (70) 95 07/30/19 14:00 137/37 07/30/19 13:30 83 22 126/40 (68) 95 07/30/19 13:00 60 20 137/60 (85) 94 07/30/19 13:00 137/60 07/30/19 12:30 65 13 113/58 (76) 95 07/30/19 12:00 124/62 07/30/19 12:00 Room Air 07/30/19 12:00 97.5 69 19 99/83 (88) 95 07/30/19 12:00 77 07/30/19 11:30 55/29 07/30/19 11:30 76 21 55/29 (38) 95 07/30/19 11:00 110/59 07/30/19 11:00 75 21 110/59 (76) 95 07/30/19 10:30 71 21 112/50 (70) 94 07/30/19 10:00 64 20 112/66 (81) 94 07/30/19 10:00 112/66 07/30/19 09:30 73 22 101/49 (66) 95 07/30/19 09:00 70 20 137/71 (93) 96 07/30/19 09:00 137/49 07/30/19 08:30 64 22 101/50 (67) 95 07/30/19 08:00 98.5 70 21 96/54 (68) 96 07/30/19 08:00 96/54 07/30/19 07:58 Nasal Cannula 2.0 07/30/19 07:54 100 07/30/19 07:30 63 20 100/51 (67) 95 07/30/19 07:00 98 16 96 Room Air 21 07/30/19 07:00 64 20 124/59 (80) 92 07/30/19 07:00 124/59 07/30/19 07:00 96 Room Air 21 07/30/19 06:45 67 22 108/58 (75) 91 07/30/19 06:30 72 20 126/61 (82) 95 07/30/19 06:15 67 25 106/55 (72) 95 07/30/19 06:00 63 22 130/57 (81) 94 07/30/19 06:00 130/57 07/30/19 05:51 89/58 07/30/19 05:49 65 22 89/58 (68) 96 07/30/19 05:45 70 19 75/60 (65) 99 07/30/19 05:30 76 19 108/53 (71) 99 07/30/19 05:15 68 20 90/57 (68) 92 07/30/19 05:00 66 21 99/55 (70) 94 07/30/19 05:00 99/55 07/30/19 04:45 68 20 119/60 (79) 95 07/30/19 04:30 100 25 106/71 (83) 99 07/30/19 04:15 79 25 106/81 (89) 95 07/30/19 04:00 92/75 07/30/19 04:00 97.9 75 22 92/75 (81) 96 07/30/19 04:00 Nasal Cannula 2.0 07/30/19 03:45 79 24 100/59 (73) 97 07/30/19 03:30 77 07/30/19 03:30 92 25 94/52 (66) 96 07/30/19 03:15 77 23 126/54 (78) 94 07/30/19 03:00 68 22 120/69 (86) 95 07/30/19 03:00 120/69 07/30/19 02:45 74 24 115/62 (79) 95 07/30/19 02:30 75 24 119/62 (81) 95 07/30/19 02:15 71 22 96/52 (67) 96 07/30/19 02:00 73 23 115/77 (90) 96 07/30/19 02:00 115/77 07/30/19 01:45 76 19 128/86 (100) 96 07/30/19 01:30 84 21 95/50 (65) 96 07/30/19 01:15 77 23 97/60 (72) 97 07/30/19 01:00 97/60 07/30/19 01:00 68 23 105/62 (76) 96 07/30/19 00:00 76 21 109/40 (63) 96 07/30/19 00:00 Nasal Cannula 2.0 07/30/19 00:00 109/40 07/29/19 23:30 68 22 107/47 (67) 96 07/29/19 23:15 66 20 116/51 (72) 95 07/29/19 23:03 68 07/29/19 23:00 71 20 98/85 (89) 100 07/29/19 23:00 98/85 07/29/19 22:45 69 24 128/53 (78) 96 07/29/19 22:30 68 23 103/55 (71) 95 07/29/19 22:15 73 26 105/79 (88) 94 07/29/19 22:00 65 19 128/59 (82) 95 07/29/19 22:00 128/59 07/29/19 21:45 66 16 117/104 (108) 96 07/29/19 21:30 85 21 99/59 (72) 95 07/29/19 21:15 67 19 103/88 (93) 95 07/29/19 21:00 74 22 120/54 (76) 100 07/29/19 21:00 120/54 07/29/19 20:45 67 22 109/55 (73) 100 07/29/19 20:30 67 21 99/48 (65) 97 07/29/19 20:25 117/52 07/29/19 20:23 66 17 117/52 (73) 96 07/29/19 20:15 67 19 115/71 (86) 94 07/29/19 20:00 97.7 68 20 121/54 (76) 94 07/29/19 20:00 121/54 07/29/19 20:00 Nasal Cannula 2.0 07/29/19 19:49 64 07/29/19 19:45 70 17 115/89 (98) 96 I&O Intake and Output 07/29/19 07/30/19 19:00 07:00 Intake Total 1880.6323 ml 2067.150 ml Output Total 2875 ml 3350 ml Balance -994.3677 ml -1282.850 ml Intake Free Water 20 ml IV Total 1800.6323 ml 1837.150 ml Tube Feeding 50 ml 230 ml Other 10 ml Output Urine Total 2875 ml 3350 ml Dressing: other Wound: other Drains: other Cardiovascular: RSR Respiratory: decreased breath sounds Abdomen: soft, non-tender, present bowel sounds, non-distended Extremities: no cyanosis Laboratory Tests Test 07/30/19 05:45 07/30/19 11:15 07/30/19 12:28 White Blood Count 7.3 K/UL (4.8-10.8) Red Blood Count 3.68 M/UL (4.70-6.10) L Hemoglobin 11.6 G/DL (14.2-18.0) L Hematocrit 33.3 % (42.0-52.0) L Mean Corpuscular Volume 91 FL (80-99) Mean Corpuscular Hemoglobin 31.5 PG (27.0-31.0) H Mean Corpuscular Hemoglobin Concent 34.8 G/DL (32.0-36.0) Red Cell Distribution Width 13.4 % (11.6-14.8) Platelet Count 357 K/UL (150-450) Mean Platelet Volume 5.7 FL (6.5-10.1) L Neutrophils (%) (Auto) 63.5 % (45.0-75.0) Lymphocytes (%) (Auto) 24.7 % (20.0-45.0) Monocytes (%) (Auto) 8.5 % (1.0-10.0) Eosinophils (%) (Auto) 1.9 % (0.0-3.0) Basophils (%) (Auto) 1.5 % (0.0-2.0) Sodium Level 133 MMOL/L (136-145) L Potassium Level 3.5 MMOL/L (3.5-5.1) Chloride Level 102 MMOL/L (98-107) Carbon Dioxide Level 25 MMOL/L (21-32) Anion Gap 6 mmol/L (5-15) Blood Urea Nitrogen 5 mg/dL (7-18) L Creatinine 0.5 MG/DL (0.55-1.30) L Estimat Glomerular Filtration Rate > 60 mL/min (>60) Glucose Level 123 MG/DL (74-106) H Calcium Level 7.6 MG/DL (8.5-10.1) L Total Bilirubin 1.1 MG/DL (0.2-1.0) H Direct Bilirubin 0.5 MG/DL (0.0-0.3) H Aspartate Amino Transf (AST/SGOT) 268 U/L (15-37) H Alanine Aminotransferase (ALT/SGPT) 628 U/L (12-78) H Alkaline Phosphatase 111 U/L (46-116) Total Protein 7.2 G/DL (6.4-8.2) Albumin 2.2 G/DL (3.4-5.0) L Globulin 5.0 g/dL Albumin/Globulin Ratio 0.4 (1.0-2.7) L Vancomycin Level Trough 24.6 ug/mL (5.0-12.0) H Arterial Blood pH 7.450 (7.350-7.450) Arterial Blood Partial Pressure CO2 32.7 mmHg (35.0-45.0) L Arterial Blood Partial Pressure O2 70.4 mmHg (75.0-100.0) L Arterial Blood HCO3 22.2 mmol/L (22.0-26.0) Arterial Blood Oxygen Saturation 94.5 % (95-100) L Arterial Blood Base Excess -1.1 (-2-2) Jonathan Test Positive Plan Problems: (1) Septic shock Assessment & Plan: This is a 54-year-old male with multi-medical morbidities history of Down's who presents with hypotension, tachycardia, abnormal electrolytes, abnormal LFTs. Patient currently admitted to the intensive care unit for care and management. Abdominal ultrasound noted as below Does not seem to have intra-abdominal etiology of sepsis/SIRS We will continue with work-up Continue with IV fluid resuscitation Trend labs Hold on central venous catheter placement as patient is responsive to IV fluids. If requires pressors okay to use midline for a short period of time until peripherally inserted central venous catheter placed. Local wound care as below Once stable will resume nutritional goals Thank you will follow the recommendations Gallbladder is unremarkable, without stones, wall thickening, nor pericholecystic fluid. Sonographic Gamez's sign is negative. Common bile duct measures 5 mm in diameter. No intrahepatic biliary ductal dilatation. Liver demonstrates slightly coarsened echogenicity. No focal abnormality. Portal vein and hepatic veins are patent. Pancreas is unremarkable. Spleen is unremarkable. Left kidney measures left cm in length. Right kidney measures 11.2 cm length. Both kidneys demonstrate normal echogenicity. There is mild fullness to the right renal collecting system, and very mild left hydronephrosis No focal abnormality . Non-aneurysmal abdominal aorta . There is a right hip prosthesis which throws off streak artifact which may obscure pelvic pathology. There is also some image degradation due to respiratory motion artifact in the upper abdomen. Lack of enteric contrast limits assessment of the GI tract. The rectum is distended by stool, measuring 6.7 cm in diameter. No definite wall thickening or perirectal inflammation demonstrated. Considerable dense stool is also seen elsewhere within the colon. No evidence of colonic diverticulosis or diverticulitis. The appendix is normal. No small bowel distention. There is a gastrostomy which appears to be in good position. Lack of IV contrast limits assessment of the solid organs. The liver, gallbladder, bile ducts, pancreas, spleen, adrenals are all unremarkable. There is mild fullness to the bilateral renal collecting systems and ureters. No focal renal parenchymal abnormality. No renal or ureteral calculi demonstrated. The bladder is markedly distended. It demonstrates mild wall thickening. No pelvic mass or adenopathy. The lung bases demonstrate bronchial wall thickening and basilar atelectatic changes as well as possibly some bronchiectasis on the left. There may be trace pleural fluid bilaterally. There is a small anterior wall pericardial effusion which measures up to 7 mm in thickness. The bones demonstrate a compression fracture deformity of the T11 vertebral body. This results in about 30% height loss. This is in retrospect evident also on a prior chest CT of 06/03/2019 Alexis Ruffin Jul 30, 2019 19:41
[2019-07-30] MEDS: Dyna-Hex 2% Top Sol 2oz TOPIC SCH (19:54)
[2019-07-30] MEDS: Vancomycin 1gm in D5W 275ml IVPB SCH (20:38)
[2019-07-31] VITALS (60 sets, daily range): BP systolic 64–155; BP diastolic 25–78
[2019-07-31] MEDS: DOPamine 400mg/250ml 250 ML IV SCH ×2 (00:05→09:23)
[2019-07-31 07:32] LABS: BASOPHILS % (AUTO) 1.2 % (0.0-2.0); EOSINOPHILS % (AUTO) 1.5 % (0.0-3.0); HEMATOCRIT 33.5 % (42.0-52.0); HEMOGLOBIN 11.4 G/DL (14.2-18.0); LYMPHOCYTES % (AUTO) 32.3 % (20.0-45.0); MEAN CORPUSCULAR VOLUME 93 FL (80-99); MONOCYTES % (AUTO) 10.5 % (1.0-10.0); NEUTROPHILS % (AUTO) 54.6 % (45.0-75.0); PLATELET COUNT 339 K/UL (150-450); RED BLOOD COUNT 3.63 M/UL (4.70-6.10); RED CELL DISTRIBUTION WIDTH 13.7 % (11.6-14.8); WHITE BLOOD COUNT 5.2 K/UL (4.8-10.8)
[2019-07-31 07:33] LABS: INR 1.1 (0.9-1.1)
[2019-07-31 07:47] LABS: ALANINE AMINOTRANSFERASE 499 U/L (12-78); ALBUMIN 1.9 G/DL (3.4-5.0); ALBUMIN/GLOBULIN RATIO 0.4 (1.0-2.7); ALKALINE PHOSPHATASE 129 U/L (46-116); ANION GAP 6 mmol/L (5-15); ASPARTATE AMINO TRANSFERASE 197 U/L (15-37); BILIRUBIN,TOTAL 0.7 MG/DL (0.2-1.0); BLOOD UREA NITROGEN 6 mg/dL (7-18); CARBON DIOXIDE 26 MMOL/L (21-32); CHLORIDE 106 MMOL/L (98-107); CREATININE 0.5 MG/DL (0.55-1.30); PHOSPHORUS 2.2 MG/DL (2.5-4.9); SODIUM 139 MMOL/L (136-145)
[2019-07-31 07:48] LABS: POTASSIUM 2.3 MMOL/L (3.5-5.1)
--- NOTE | 2019-07-31 09:19 | General Progress Note ---
Assessment/Plan Status: progressing, other - critical Assessment/Plan: GI: Plan Problems: (1) Hepatitis B (2) Iron deficiency anemia (3) GERD (gastroesophageal reflux disease) (4) Down's syndrome Plan rising LFTs 2/2 to Hepatitis B GT dependent constipation start patient on Lamivudine 100mg GT BID >> discussed with pharmacist, non- formulary will need script for outpatient treatment Hep B DNA>>> pending GTF anemia panel prn transfusions PPI repeat liver function tests Subjective ROS Limited/Unobtainable: No Allergies: Coded Allergies: KETAMINE (Verified Allergy, Unknown, 05/29/19) NSAIDS (NON-STEROIDAL ANTI-INFLAMMA (Verified Allergy, Unknown, 05/29/19) Objective Last 24 Hour Vital Signs Date Time Temp Pulse Resp B/P (MAP) Pulse Ox O2 Delivery O2 Flow Rate FiO2 07/31/19 08:00 Nasal Cannula 2.0 07/31/19 07:01 72 22 115/34 (61) 96 07/31/19 07:00 115/34 07/31/19 06:31 84 23 94/42 (59) 99 07/31/19 06:00 94/42 07/31/19 06:00 55 20 108/34 (58) 99 07/31/19 05:30 56 20 110/33 (58) 98 07/31/19 05:00 57 20 107/35 (59) 100 07/31/19 05:00 107/35 07/31/19 04:30 57 18 101/32 (55) 98 07/31/19 04:00 54 07/31/19 04:00 99.0 59 19 116/36 (62) 99 07/31/19 04:00 116/36 07/31/19 04:00 Nasal Cannula 2.0 07/31/19 03:30 66 21 113/41 (65) 95 07/31/19 03:00 113/41 07/31/19 03:00 65 19 120/39 (66) 96 07/31/19 02:52 70 18 114/40 (64) 98 07/31/19 02:30 70 18 114/40 (64) 96 07/31/19 02:00 125/44 07/31/19 02:00 77 23 107/44 (65) 94 07/31/19 01:30 66 21 100/36 (57) 94 07/31/19 01:15 64 21 108/34 (58) 95 07/31/19 01:00 65 21 126/43 (70) 97 07/31/19 01:00 110/41 07/31/19 00:30 61 23 110/33 (58) 94 07/31/19 00:05 98/29 07/31/19 00:00 65 07/31/19 00:00 98.8 70 21 116/44 (68) 93 07/31/19 00:00 116/52 07/31/19 00:00 Nasal Cannula 2.0 07/30/19 23:30 65 21 98/29 (52) 93 07/30/19 23:15 62 21 102/31 (54) 94 07/30/19 23:00 88/36 07/30/19 23:00 68 22 99/34 (55) 96 07/30/19 22:45 62 20 106/31 (56) 94 07/30/19 22:30 77 25 102/33 (56) 95 07/30/19 22:15 68 22 120/35 (63) 93 07/30/19 22:00 62 23 123/39 (67) 94 07/30/19 22:00 120/35 07/30/19 21:45 74 22 111/39 (63) 95 07/30/19 21:30 76 24 106/26 (52) 95 07/30/19 21:15 58 19 117/37 (63) 94 07/30/19 21:00 66 23 121/34 (63) 95 07/30/19 21:00 117/37 07/30/19 20:45 79 25 104/46 (65) 93 07/30/19 20:30 66 21 129/40 (69) 93 07/30/19 20:15 68 21 126/44 (71) 95 07/30/19 20:00 Nasal Cannula 2.0 07/30/19 20:00 126/44 07/30/19 20:00 98.6 79 21 115/40 (65) 95 07/30/19 19:45 90 23 109/30 (56) 95 07/30/19 19:30 73 23 127/59 (81) 94 07/30/19 19:28 75 07/30/19 19:15 74 21 139/38 (71) 95 07/30/19 19:00 77 18 132/45 (74) 96 07/30/19 18:00 73 25 94/35 (54) 97 07/30/19 17:30 69 21 115/33 (60) 94 07/30/19 17:00 65 20 120/40 (66) 96 07/30/19 17:00 108/43 07/30/19 16:30 65 20 120/40 (66) 96 07/30/19 16:00 70 07/30/19 16:00 Nasal Cannula 2.0 07/30/19 16:00 131/38 07/30/19 16:00 98.2 69 19 131/36 (67) 95 07/30/19 15:58 140/43 07/30/19 15:45 140/43 07/30/19 15:30 66 19 78/27 (44) 93 07/30/19 15:30 78/27 07/30/19 15:00 112/28 07/30/19 15:00 72 21 112/28 (56) 93 07/30/19 14:45 117/39 07/30/19 14:30 138/44 07/30/19 14:30 66 20 138/44 (75) 94 07/30/19 14:00 88 20 137/37 (70) 95 07/30/19 14:00 137/37 07/30/19 13:30 83 22 126/40 (68) 95 07/30/19 13:00 60 20 137/60 (85) 94 07/30/19 13:00 137/60 07/30/19 12:30 65 13 113/58 (76) 95 07/30/19 12:00 124/62 07/30/19 12:00 Room Air 07/30/19 12:00 97.5 69 19 99/83 (88) 95 07/30/19 12:00 77 07/30/19 11:30 55/29 07/30/19 11:30 76 21 55/29 (38) 95 07/30/19 11:00 110/59 07/30/19 11:00 75 21 110/59 (76) 95 07/30/19 10:30 71 21 112/50 (70) 94 07/30/19 10:00 64 20 112/66 (81) 94 07/30/19 10:00 112/66 07/30/19 09:30 73 22 101/49 (33) 95 Intake and Output 07/30/19 07/31/19 19:00 07:00 Intake Total 2390.39 ml 2959.458 ml Output Total 2715 ml 2045 ml Balance -324.61 ml 914.458 ml Intake Free Water 160 ml IV Total 1750.39 ml 2314.458 ml Tube Feeding 470 ml 645 ml Other 10 ml Output Urine Total 2715 ml 2045 ml Laboratory Tests 07/30/19 11:15: Sodium Level 133L, Potassium Level 3.5, Chloride Level 102, Carbon Dioxide Level 25, Anion Gap 6, Blood Urea Nitrogen 5L, Creatinine 0.5L, Estimat Glomerular Filtration Rate > 60, Glucose Level 123H, Calcium Level 7.6L, Total Bilirubin 1.1H, Direct Bilirubin 0.5H, Aspartate Amino Transf (AST/SGOT) 268H, Alanine Aminotransferase (ALT/SGPT) 628H, Alkaline Phosphatase 111, Total Protein 7.2, Albumin 2.2L, Globulin 5.0, Albumin/Globulin Ratio 0.4L, Vancomycin Level Trough 24.6H 07/30/19 12:28: Arterial Blood pH 7.450, Arterial Blood Partial Pressure CO2 32.7L, Arterial Blood Partial Pressure O2 70.4L, Arterial Blood HCO3 22.2, Arterial Blood Oxygen Saturation 94.5L, Arterial Blood Base Excess -1.1, Jonathan Test Positive 07/31/19 04:00: Sodium Level 139, Potassium Level 2.3*L, Chloride Level 106, Carbon Dioxide Level 26, Anion Gap 6, Blood Urea Nitrogen 6L, Creatinine 0.5L, Estimat Glomerular Filtration Rate > 60, Glucose Level 114H, Calcium Level 7.0L, Total Bilirubin 0.7, Aspartate Amino Transf (AST/SGOT) 197H, Alanine Aminotransferase (ALT/SGPT) 499H, Alkaline Phosphatase 129H, Total Protein 6.9, Albumin 1.9L, Globulin 5.0, Albumin/Globulin Ratio 0.4L, White Blood Count 5.2, Red Blood Count 3.63L, Hemoglobin 11.4L, Hematocrit 33.5L, Mean Corpuscular Volume 93, Mean Corpuscular Hemoglobin 31.5H, Mean Corpuscular Hemoglobin Concent 34.1, Red Cell Distribution Width 13.7, Platelet Count 339, Mean Platelet Volume 5.4L , Neutrophils (%) (Auto) 54.6, Lymphocytes (%) (Auto) 32.3, Monocytes (%) (Auto ) 10.5H, Eosinophils (%) (Auto) 1.5, Basophils (%) (Auto) 1.2, Prothrombin Time 11.4, Prothromb Time International Ratio 1.1, Activated Partial Thromboplast Time 36H, Phosphorus Level 2.2L, Magnesium Level 1.4L, Lipase 170 07/31/19 05:30: Hepatitis B DNA (IU/mL) [Pending] Height (Feet): 5 Height (Inches): 4.00 Weight (Pounds): 127 General Appearance: no apparent distress EENT: normal ENT inspection Neck: supple Cardiovascular: normal rate Respiratory/Chest: decreased breath sounds Abdomen: normal bowel sounds, non tender, soft Extremities: non-tender Lewis Rubio MD Jul 31, 2019 09:19
[2019-07-31] MEDS: Vancomycin 1gm in D5W 275ml IVPB SCH ×2 (09:24→22:08)
[2019-07-31] MEDS: Midodrine 10mg tab ORAL SCH ×3 (09:25→17:57)
[2019-07-31] MEDS: Heparin 5000 units/ml inj SUBQ SCH ×2 (09:28→20:17)
--- NOTE | 2019-07-31 13:17 | Cardiac Electrophysiology PN ---
Subjective Subjective [id number] Objective Last 24 Hour Vital Signs Date Time Temp Pulse Resp B/P (MAP) Pulse Ox O2 Delivery O2 Flow Rate FiO2 07/31/19 09:23 106/40 07/31/19 08:00 Nasal Cannula 2.0 07/31/19 08:00 65 07/31/19 07:30 61 21 91/40 (57) 94 07/31/19 07:01 72 22 115/34 (61) 96 07/31/19 07:00 115/34 07/31/19 06:40 96 Room Air 21 07/31/19 06:40 98 16 96 Room Air 21 07/31/19 06:31 84 23 94/42 (59) 99 07/31/19 06:00 94/42 07/31/19 06:00 55 20 108/34 (58) 99 07/31/19 05:30 56 20 110/33 (58) 98 07/31/19 05:00 57 20 107/35 (59) 100 07/31/19 05:00 107/35 07/31/19 04:30 57 18 101/32 (55) 98 07/31/19 04:00 54 07/31/19 04:00 99.0 59 19 116/36 (62) 99 07/31/19 04:00 116/36 07/31/19 04:00 Nasal Cannula 2.0 07/31/19 03:30 66 21 113/41 (65) 95 07/31/19 03:00 113/41 07/31/19 03:00 65 19 120/39 (66) 96 07/31/19 02:52 70 18 114/40 (64) 98 07/31/19 02:30 70 18 114/40 (64) 96 07/31/19 02:00 125/44 07/31/19 02:00 77 23 107/44 (65) 94 07/31/19 01:30 66 21 100/36 (57) 94 07/31/19 01:15 64 21 108/34 (58) 95 07/31/19 01:00 65 21 126/43 (70) 97 07/31/19 01:00 110/41 07/31/19 00:30 61 23 110/33 (58) 94 07/31/19 00:05 98/29 07/31/19 00:00 65 07/31/19 00:00 98.8 70 21 116/44 (68) 93 07/31/19 00:00 116/52 07/31/19 00:00 Nasal Cannula 2.0 07/30/19 23:30 65 21 98/29 (52) 93 07/30/19 23:15 62 21 102/31 (54) 94 07/30/19 23:00 88/36 07/30/19 23:00 68 22 99/34 (55) 96 07/30/19 22:45 62 20 106/31 (56) 94 07/30/19 22:30 77 25 102/33 (56) 95 07/30/19 22:15 68 22 120/35 (63) 93 07/30/19 22:00 62 23 123/39 (67) 94 07/30/19 22:00 120/35 07/30/19 21:45 74 22 111/39 (63) 95 07/30/19 21:30 76 24 106/26 (52) 95 07/30/19 21:15 58 19 117/37 (63) 94 07/30/19 21:00 66 23 121/34 (63) 95 07/30/19 21:00 117/37 07/30/19 20:45 79 25 104/46 (65) 93 07/30/19 20:30 66 21 129/40 (69) 93 07/30/19 20:15 68 21 126/44 (71) 95 07/30/19 20:00 Nasal Cannula 2.0 07/30/19 20:00 126/44 07/30/19 20:00 98.6 79 21 115/40 (65) 95 07/30/19 19:45 90 23 109/30 (56) 95 07/30/19 19:30 73 23 127/59 (81) 94 07/30/19 19:28 75 07/30/19 19:15 74 21 139/38 (71) 95 07/30/19 19:00 77 18 132/45 (74) 96 07/30/19 18:00 73 25 94/35 (54) 97 07/30/19 17:30 69 21 115/33 (60) 94 07/30/19 17:00 65 20 120/40 (66) 96 07/30/19 17:00 108/43 07/30/19 16:30 65 20 120/40 (66) 96 07/30/19 16:00 70 07/30/19 16:00 Nasal Cannula 2.0 07/30/19 16:00 131/38 07/30/19 16:00 98.2 69 19 131/36 (67) 95 07/30/19 15:58 140/43 07/30/19 15:45 140/43 07/30/19 15:30 66 19 78/27 (44) 93 07/30/19 15:30 78/27 07/30/19 15:00 112/28 07/30/19 15:00 72 21 112/28 (56) 93 07/30/19 14:45 117/39 07/30/19 14:30 138/44 07/30/19 14:30 66 20 138/44 (75) 94 07/30/19 14:00 88 20 137/37 (70) 95 07/30/19 14:00 137/37 07/30/19 13:30 83 22 126/40 (68) 95 Intake and Output 07/30/19 07/31/19 19:00 07:00 Intake Total 2390.39 ml 2959.458 ml Output Total 2715 ml 2045 ml Balance -324.61 ml 914.458 ml Intake Free Water 160 ml IV Total 1750.39 ml 2314.458 ml Tube Feeding 470 ml 645 ml Other 10 ml Output Urine Total 2715 ml 2045 ml Laboratory Tests Test 07/31/19 04:00 07/31/19 05:30 White Blood Count 5.2 K/UL (4.8-10.8) Red Blood Count 3.63 M/UL (4.70-6.10) L Hemoglobin 11.4 G/DL (14.2-18.0) L Hematocrit 33.5 % (42.0-52.0) L Mean Corpuscular Volume 93 FL (80-99) Mean Corpuscular Hemoglobin 31.5 PG (27.0-31.0) H Mean Corpuscular Hemoglobin Concent 34.1 G/DL (32.0-36.0) Red Cell Distribution Width 13.7 % (11.6-14.8) Platelet Count 339 K/UL (150-450) Mean Platelet Volume 5.4 FL (6.5-10.1) L Neutrophils (%) (Auto) 54.6 % (45.0-75.0) Lymphocytes (%) (Auto) 32.3 % (20.0-45.0) Monocytes (%) (Auto) 10.5 % (1.0-10.0) H Eosinophils (%) (Auto) 1.5 % (0.0-3.0) Basophils (%) (Auto) 1.2 % (0.0-2.0) Prothrombin Time 11.4 SEC (9.30-11.50) Prothromb Time International Ratio 1.1 (0.9-1.1) Activated Partial Thromboplast Time 36 SEC (23-33) H Sodium Level 139 MMOL/L (136-145) Potassium Level 2.3 MMOL/L (3.5-5.1) *L Chloride Level 106 MMOL/L (98-107) Carbon Dioxide Level 26 MMOL/L (21-32) Anion Gap 6 mmol/L (5-15) Blood Urea Nitrogen 6 mg/dL (7-18) L Creatinine 0.5 MG/DL (0.55-1.30) L Estimat Glomerular Filtration Rate > 60 mL/min (>60) Glucose Level 114 MG/DL (74-106) H Calcium Level 7.0 MG/DL (8.5-10.1) L Phosphorus Level 2.2 MG/DL (2.5-4.9) L Magnesium Level 1.4 MG/DL (1.8-2.4) L Total Bilirubin 0.7 MG/DL (0.2-1.0) Aspartate Amino Transf (AST/SGOT) 197 U/L (15-37) H Alanine Aminotransferase (ALT/SGPT) 499 U/L (12-78) H Alkaline Phosphatase 129 U/L (46-116) H Total Protein 6.9 G/DL (6.4-8.2) Albumin 1.9 G/DL (3.4-5.0) L Globulin 5.0 g/dL Albumin/Globulin Ratio 0.4 (1.0-2.7) L Lipase 170 U/L (73-393) Hepatitis B DNA (IU/mL) Pending Microbiology Date/Time Source Procedure Growth Status 07/29/19 17:00 Blood Blood Culture - Preliminary NO GROWTH AFTER 24 HOURS Resulted 07/29/19 16:45 Blood Blood Culture - Preliminary NO GROWTH AFTER 24 HOURS Resulted 07/29/19 17:10 Sputum Induced Gram Stain - Final Resulted 07/29/19 17:10 Sputum Induced Sputum Culture Pending Resulted Valerio Owen MD Jul 31, 2019 13:17
--- NOTE | 2019-07-31 14:11 | General Progress Note ---
Assessment/Plan Status: other - critical Assessment/Plan: 54-year-old male, skilled nursing resident Down syndrome, diastolic CHF, hypertension,hyperlipidemia, iron deficiency anemia, hypothyroidism, GERD, aortic stenosis, bilateral foot pressure ulcers, dysphagia s/p PEG presenting with altered mental status and hypoxia being admitted with septic shock likely secondary to pneumonia and possible abdominal source given elevated LFTs, though could be due to hypotension. CT abdomen pelvis without any source for infection. #Shock likely hypovolemic and septic #Healthcare associated pneumonia IV fluid hydration. peripheral dopamine, I rather taper off and dc at this point. Patient has a midline that could be used for Levophed if needed. for map 60. d/w Dr. Luevano. Decrease IV NS rate. Cardiology consult with Dr. Owen regarding BP management Continue home midodrine- d/w rn Broad spectrum antibiotics with vancomycin and meropenem per ID consult . case d /w Dr. Serrano follow up blood and sputum cultures Pulmonary consult with Dr. Luevano. case d/w AM cortisol --> 12.7 #toxic metabolic encephalopathy- improving Monitor mental status, treat sepsis #hypotonic hyponatremia- corrected continue to monitor #Abnormal LFTs #Acute Hepatitis B -right upper quadrant ultrasound- reviewed, no acute pathology -Trend LFTs - Upon reviewing the chart, on previous admission hepatitis B surface antigen, hepatitis B core total antibody and hepatitis Be antibody was positive. liver function tests were normal. Patient was referred to follow up outpatient. -GI consult -continue Lamivudine 100mg GT BID Hep B DNA>>> pending # Dysphagia, status post G-tube #GERD resume tube feeds #Down syndrome. #Diastolic CHF- not in exacerbation #hypertension- hypotensive now #hyperlipidemia # hypovolemic Hold BP meds #iron deficiency anemia H/H stable continue to monitor Anemia panel prn transfusion #hypothyroidism -Continue Synthroid, follow up TSH- normal #Bilateral wounds and pressure ulcers to the heels wound care consult with Dr. Ruffin, surgery off loading turning q2 hr VTE ppx: heparin subcutaneous. GI ppx: IV PPI Diet: tube feeds Code status, DNI, however can resuscitate disposition: Keep in ICU I spent 75 minutes on this patient's case, and 40 mins was dedicated to critical care Critical Care Services performed include: Telemetry Review Hemodynamic measurement interpretation Laboratory data review and interpretation Radiology image review and interpretation Interpretation of ABG's Discussion of patient's care with ICU team, ICU Nursing staff and/or consulting services time of this note may not reflect time of encounter. Subjective Date patient seen: Jul 31, 2019 ROS Limited/Unobtainable: Yes Allergies: Coded Allergies: KETAMINE (Verified Allergy, Unknown, 05/29/19) NSAIDS (NON-STEROIDAL ANTI-INFLAMMA (Verified Allergy, Unknown, 05/29/19) Subjective remains in ICU, awake but non verbal (baseline), still on dopamine drip, hypokalemic today. seen by GI for hepatitis b, serologies ordered and started on treatment with Lamivudine Objective Last 24 Hour Vital Signs Date Time Temp Pulse Resp B/P (MAP) Pulse Ox O2 Delivery O2 Flow Rate FiO2 07/31/19 09:23 106/40 07/31/19 08:00 Nasal Cannula 2.0 07/31/19 08:00 65 07/31/19 07:30 61 21 91/40 (57) 94 07/31/19 07:01 72 22 115/34 (61) 96 07/31/19 07:00 115/34 07/31/19 06:40 96 Room Air 21 07/31/19 06:40 98 16 96 Room Air 21 07/31/19 06:31 84 23 94/42 (59) 99 07/31/19 06:00 94/42 07/31/19 06:00 55 20 108/34 (58) 99 07/31/19 05:30 56 20 110/33 (58) 98 07/31/19 05:00 57 20 107/35 (59) 100 07/31/19 05:00 107/35 07/31/19 04:30 57 18 101/32 (55) 98 07/31/19 04:00 54 07/31/19 04:00 99.0 59 19 116/36 (62) 99 07/31/19 04:00 116/36 07/31/19 04:00 Nasal Cannula 2.0 07/31/19 03:30 66 21 113/41 (65) 95 07/31/19 03:00 113/41 07/31/19 03:00 65 19 120/39 (66) 96 07/31/19 02:52 70 18 114/40 (64) 98 07/31/19 02:30 70 18 114/40 (64) 96 07/31/19 02:00 125/44 07/31/19 02:00 77 23 107/44 (65) 94 07/31/19 01:30 66 21 100/36 (57) 94 07/31/19 01:15 64 21 108/34 (58) 95 07/31/19 01:00 65 21 126/43 (70) 97 07/31/19 01:00 110/41 07/31/19 00:30 61 23 110/33 (58) 94 07/31/19 00:05 98/29 07/31/19 00:00 65 07/31/19 00:00 98.8 70 21 116/44 (68) 93 07/31/19 00:00 116/52 07/31/19 00:00 Nasal Cannula 2.0 07/30/19 23:30 65 21 98/29 (52) 93 07/30/19 23:15 62 21 102/31 (54) 94 07/30/19 23:00 88/36 07/30/19 23:00 68 22 99/34 (55) 96 07/30/19 22:45 62 20 106/31 (56) 94 07/30/19 22:30 77 25 102/33 (56) 95 07/30/19 22:15 68 22 120/35 (63) 93 07/30/19 22:00 62 23 123/39 (67) 94 07/30/19 22:00 120/35 07/30/19 21:45 74 22 111/39 (63) 95 07/30/19 21:30 76 24 106/26 (52) 95 07/30/19 21:15 58 19 117/37 (63) 94 07/30/19 21:00 66 23 121/34 (63) 95 07/30/19 21:00 117/37 07/30/19 20:45 79 25 104/46 (65) 93 07/30/19 20:30 66 21 129/40 (69) 93 07/30/19 20:15 68 21 126/44 (71) 95 07/30/19 20:00 Nasal Cannula 2.0 07/30/19 20:00 126/44 07/30/19 20:00 98.6 79 21 115/40 (65) 95 07/30/19 19:45 90 23 109/30 (56) 95 07/30/19 19:30 73 23 127/59 (81) 94 07/30/19 19:28 75 07/30/19 19:15 74 21 139/38 (71) 95 07/30/19 19:00 77 18 132/45 (74) 96 07/30/19 18:00 73 25 94/35 (54) 97 07/30/19 17:30 69 21 115/33 (60) 94 07/30/19 17:00 65 20 120/40 (66) 96 07/30/19 17:00 108/43 07/30/19 16:30 65 20 120/40 (66) 96 07/30/19 16:00 70 07/30/19 16:00 Nasal Cannula 2.0 07/30/19 16:00 131/38 07/30/19 16:00 98.2 69 19 131/36 (67) 95 07/30/19 15:58 140/43 07/30/19 15:45 140/43 07/30/19 15:30 66 19 78/27 (44) 93 07/30/19 15:30 78/27 07/30/19 15:00 112/28 07/30/19 15:00 72 21 112/28 (56) 93 07/30/19 14:45 117/39 07/30/19 14:30 138/44 07/30/19 14:30 66 20 138/44 (75) 94 Intake and Output 07/30/19 07/31/19 18:59 06:59 Intake Total 2368.59 ml 2926.258 ml Output Total 2715 ml 2420 ml Balance -346.41 ml 506.258 ml Intake Free Water 160 ml IV Total 1768.59 ml 2296.258 ml Tube Feeding 430 ml 630 ml Other 10 ml Output Urine Total 2715 ml 2420 ml Laboratory Tests 07/31/19 04:00: White Blood Count 5.2, Red Blood Count 3.63L, Hemoglobin 11.4L, Hematocrit 33.5L , Mean Corpuscular Volume 93, Mean Corpuscular Hemoglobin 31.5H, Mean Corpuscular Hemoglobin Concent 34.1, Red Cell Distribution Width 13.7, Platelet Count 339, Mean Platelet Volume 5.4L, Neutrophils (%) (Auto) 54.6, Lymphocytes ( %) (Auto) 32.3, Monocytes (%) (Auto) 10.5H, Eosinophils (%) (Auto) 1.5, Basophils (%) (Auto) 1.2, Prothrombin Time 11.4, Prothromb Time International Ratio 1.1, Activated Partial Thromboplast Time 36H, Sodium Level 139, Potassium Level 2.3*L, Chloride Level 106, Carbon Dioxide Level 26, Anion Gap 6, Blood Urea Nitrogen 6L, Creatinine 0.5L, Estimat Glomerular Filtration Rate > 60, Glucose Level 114H, Calcium Level 7.0L, Phosphorus Level 2.2L, Magnesium Level 1.4L, Total Bilirubin 0.7, Aspartate Amino Transf (AST/SGOT) 197H, Alanine Aminotransferase (ALT/SGPT) 499H, Alkaline Phosphatase 129H, Total Protein 6.9, Albumin 1.9L, Globulin 5.0, Albumin/Globulin Ratio 0.4L, Lipase 170 07/31/19 05:30: Hepatitis B DNA (IU/mL) [Pending] Height (Feet): 5 Height (Inches): 4.00 Weight (Pounds): 127 Objective General Appearance: no apparent distress, awake, non verbal Head: normocephalic, atraumatic Eyes: bilateral PERRL ENT: dry mucus membranes Neck: supple, no jvd Respiratory: rhonchi Cardiovascular : regular rate, rhythm, no m/r/g, ext: No edema Gastrointestinal: non tender, soft, +peg, Open blood blister in close proximity to GT . Musculoskeletal: moving extremities, muscle atrophy Neurologic: unable to assess, due to not following commands Skin: stage 2 ulcer right heel Matty Hernandez M.D. Jul 31, 2019 14:11
--- NOTE | 2019-07-31 14:57 | Surgery Progress Note ---
Surgery Progress Note Subjective Symptoms: improved Additional Comments still on dopa gtt comfortable appearing tube feeds going well Objective Last 24 Hour Vital Signs Date Time Temp Pulse Resp B/P (MAP) Pulse Ox O2 Delivery O2 Flow Rate FiO2 07/31/19 09:23 106/40 07/31/19 08:00 Nasal Cannula 2.0 07/31/19 08:00 65 07/31/19 07:30 61 21 91/40 (57) 94 07/31/19 07:01 72 22 115/34 (61) 96 07/31/19 07:00 115/34 07/31/19 06:40 96 Room Air 21 07/31/19 06:40 98 16 96 Room Air 21 07/31/19 06:31 84 23 94/42 (59) 99 07/31/19 06:00 94/42 07/31/19 06:00 55 20 108/34 (58) 99 07/31/19 05:30 56 20 110/33 (58) 98 07/31/19 05:00 57 20 107/35 (59) 100 07/31/19 05:00 107/35 07/31/19 04:30 57 18 101/32 (55) 98 07/31/19 04:00 54 07/31/19 04:00 99.0 59 19 116/36 (62) 99 07/31/19 04:00 116/36 07/31/19 04:00 Nasal Cannula 2.0 07/31/19 03:30 66 21 113/41 (65) 95 07/31/19 03:00 113/41 07/31/19 03:00 65 19 120/39 (66) 96 07/31/19 02:52 70 18 114/40 (64) 98 07/31/19 02:30 70 18 114/40 (64) 96 07/31/19 02:00 125/44 07/31/19 02:00 77 23 107/44 (65) 94 07/31/19 01:30 66 21 100/36 (57) 94 07/31/19 01:15 64 21 108/34 (58) 95 07/31/19 01:00 65 21 126/43 (70) 97 07/31/19 01:00 110/41 07/31/19 00:30 61 23 110/33 (58) 94 07/31/19 00:05 98/29 07/31/19 00:00 65 07/31/19 00:00 98.8 70 21 116/44 (68) 93 07/31/19 00:00 116/52 07/31/19 00:00 Nasal Cannula 2.0 07/30/19 23:30 65 21 98/29 (52) 93 07/30/19 23:15 62 21 102/31 (54) 94 07/30/19 23:00 88/36 07/30/19 23:00 68 22 99/34 (55) 96 07/30/19 22:45 62 20 106/31 (56) 94 07/30/19 22:30 77 25 102/33 (56) 95 07/30/19 22:15 68 22 120/35 (63) 93 07/30/19 22:00 62 23 123/39 (67) 94 07/30/19 22:00 120/35 07/30/19 21:45 74 22 111/39 (63) 95 07/30/19 21:30 76 24 106/26 (52) 95 07/30/19 21:15 58 19 117/37 (63) 94 07/30/19 21:00 66 23 121/34 (63) 95 07/30/19 21:00 117/37 07/30/19 20:45 79 25 104/46 (65) 93 07/30/19 20:30 66 21 129/40 (69) 93 07/30/19 20:15 68 21 126/44 (71) 95 07/30/19 20:00 Nasal Cannula 2.0 07/30/19 20:00 126/44 07/30/19 20:00 98.6 79 21 115/40 (65) 95 07/30/19 19:45 90 23 109/30 (56) 95 07/30/19 19:30 73 23 127/59 (81) 94 07/30/19 19:28 75 07/30/19 19:15 74 21 139/38 (71) 95 07/30/19 19:00 77 18 132/45 (74) 96 07/30/19 18:00 73 25 94/35 (54) 97 07/30/19 17:30 69 21 115/33 (60) 94 07/30/19 17:00 65 20 120/40 (66) 96 07/30/19 17:00 108/43 07/30/19 16:30 65 20 120/40 (66) 96 07/30/19 16:00 70 07/30/19 16:00 Nasal Cannula 2.0 07/30/19 16:00 131/38 07/30/19 16:00 98.2 69 19 131/36 (67) 95 07/30/19 15:58 140/43 07/30/19 15:45 140/43 07/30/19 15:30 66 19 78/27 (44) 93 07/30/19 15:30 78/27 07/30/19 15:00 112/28 07/30/19 15:00 72 21 112/28 (56) 93 I&O Intake and Output 07/30/19 07/31/19 18:59 06:59 Intake Total 2368.59 ml 2926.258 ml Output Total 2715 ml 2420 ml Balance -346.41 ml 506.258 ml Intake Free Water 160 ml IV Total 1768.59 ml 2296.258 ml Tube Feeding 430 ml 630 ml Other 10 ml Output Urine Total 2715 ml 2420 ml Dressing: saturated Wound: other Drains: other Cardiovascular: RSR Respiratory: decreased breath sounds Abdomen: soft, present bowel sounds Extremities: no cyanosis Laboratory Tests Test 07/31/19 04:00 07/31/19 05:30 White Blood Count 5.2 K/UL (4.8-10.8) Red Blood Count 3.63 M/UL (4.70-6.10) L Hemoglobin 11.4 G/DL (14.2-18.0) L Hematocrit 33.5 % (42.0-52.0) L Mean Corpuscular Volume 93 FL (80-99) Mean Corpuscular Hemoglobin 31.5 PG (27.0-31.0) H Mean Corpuscular Hemoglobin Concent 34.1 G/DL (32.0-36.0) Red Cell Distribution Width 13.7 % (11.6-14.8) Platelet Count 339 K/UL (150-450) Mean Platelet Volume 5.4 FL (6.5-10.1) L Neutrophils (%) (Auto) 54.6 % (45.0-75.0) Lymphocytes (%) (Auto) 32.3 % (20.0-45.0) Monocytes (%) (Auto) 10.5 % (1.0-10.0) H Eosinophils (%) (Auto) 1.5 % (0.0-3.0) Basophils (%) (Auto) 1.2 % (0.0-2.0) Prothrombin Time 11.4 SEC (9.30-11.50) Prothromb Time International Ratio 1.1 (0.9-1.1) Activated Partial Thromboplast Time 36 SEC (23-33) H Sodium Level 139 MMOL/L (136-145) Potassium Level 2.3 MMOL/L (3.5-5.1) *L Chloride Level 106 MMOL/L (98-107) Carbon Dioxide Level 26 MMOL/L (21-32) Anion Gap 6 mmol/L (5-15) Blood Urea Nitrogen 6 mg/dL (7-18) L Creatinine 0.5 MG/DL (0.55-1.30) L Estimat Glomerular Filtration Rate > 60 mL/min (>60) Glucose Level 114 MG/DL (74-106) H Calcium Level 7.0 MG/DL (8.5-10.1) L Phosphorus Level 2.2 MG/DL (2.5-4.9) L Magnesium Level 1.4 MG/DL (1.8-2.4) L Total Bilirubin 0.7 MG/DL (0.2-1.0) Aspartate Amino Transf (AST/SGOT) 197 U/L (15-37) H Alanine Aminotransferase (ALT/SGPT) 499 U/L (12-78) H Alkaline Phosphatase 129 U/L (46-116) H Total Protein 6.9 G/DL (6.4-8.2) Albumin 1.9 G/DL (3.4-5.0) L Globulin 5.0 g/dL Albumin/Globulin Ratio 0.4 (1.0-2.7) L Lipase 170 U/L (73-393) Hepatitis B DNA (IU/mL) Pending Plan Problems: (1) Septic shock Assessment & Plan: This is a 54-year-old male with multi-medical morbidities history of Down's who presents with hypotension, tachycardia, abnormal electrolytes, abnormal LFTs. Patient currently admitted to the intensive care unit for care and management. Abdominal ultrasound noted as below Does not seem to have intra-abdominal etiology of sepsis/SIRS We will continue with work-up Continue with IV fluid resuscitation Trend labs Hold on central venous catheter placement as patient is responsive to IV fluids. If requires pressors okay to use midline for a short period of time until peripherally inserted central venous catheter placed. Local wound care as below Once stable will resume nutritional goals Thank you will follow the recommendations Gallbladder is unremarkable, without stones, wall thickening, nor pericholecystic fluid. Sonographic Gamez's sign is negative. Common bile duct measures 5 mm in diameter. No intrahepatic biliary ductal dilatation. Liver demonstrates slightly coarsened echogenicity. No focal abnormality. Portal vein and hepatic veins are patent. Pancreas is unremarkable. Spleen is unremarkable. Left kidney measures left cm in length. Right kidney measures 11.2 cm length. Both kidneys demonstrate normal echogenicity. There is mild fullness to the right renal collecting system, and very mild left hydronephrosis No focal abnormality . Non-aneurysmal abdominal aorta . There is a right hip prosthesis which throws off streak artifact which may obscure pelvic pathology. There is also some image degradation due to respiratory motion artifact in the upper abdomen. Lack of enteric contrast limits assessment of the GI tract. The rectum is distended by stool, measuring 6.7 cm in diameter. No definite wall thickening or perirectal inflammation demonstrated. Considerable dense stool is also seen elsewhere within the colon. No evidence of colonic diverticulosis or diverticulitis. The appendix is normal. No small bowel distention. There is a gastrostomy which appears to be in good position. Lack of IV contrast limits assessment of the solid organs. The liver, gallbladder, bile ducts, pancreas, spleen, adrenals are all unremarkable. There is mild fullness to the bilateral renal collecting systems and ureters. No focal renal parenchymal abnormality. No renal or ureteral calculi demonstrated. The bladder is markedly distended. It demonstrates mild wall thickening. No pelvic mass or adenopathy. The lung bases demonstrate bronchial wall thickening and basilar atelectatic changes as well as possibly some bronchiectasis on the left. There may be trace pleural fluid bilaterally. There is a small anterior wall pericardial effusion which measures up to 7 mm in thickness. The bones demonstrate a compression fracture deformity of the T11 vertebral body. This results in about 30% height loss. This is in retrospect evident also on a prior chest CT of 06/03/2019 Alexis Ruffin Jul 31, 2019 14:57
--- NOTE | 2019-07-31 17:25 | Infectious Diseases Prog Note ---
Assessment/Plan Assessment/Plan ASSESSMENT: 1. 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 Hernandez - icu care 2. The patient has a history of Down syndrome. 3. Wound care protocol, wounds do not look acutely infected. 4. Diastolic CHF. 5. Hypertension. 6. Hyperlipidemia. 7. Anemia. 8. Hypothyroidism 9. GERD. 10. Aortic stenosis. 11. Dysphagia and G-tube. 12. Allergies to ketamine and NSAIDs. 13. Social history is negative. 14. Family history is noncontributory. 15. MAR was noted. 16. Case discussed with RN. 17. ICU care. 18. The patient also has elevated LFTs. I think an abdominal ultrasound has been ordered, this most likely is from septic shock. 19. Continue treatment per primary consultants and ICU care and nursing staff. 20. 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 Subjective Constitutional: Reports: fatigue, other - no change in mental status, on pressors ; Denies: fever HEENT: Reports: congestion Respiratory: Reports: shortness of breath Cardiovascular: Reports: other - + pressors; Denies: chest pain Gastrointestinal/Abdominal: Denies: nausea Genitourinary: Reports: other - + jones Neurologic: Reports: other - no sz, no change in mental status Psychiatric: Reports: other - NA Skin: Denies: rash Hematologic: Denies: bleeding Musculoskeletal: Denies: pain Allergies: Coded Allergies: KETAMINE (Verified Allergy, Unknown, 05/29/19) NSAIDS (NON-STEROIDAL ANTI-INFLAMMA (Verified Allergy, Unknown, 05/29/19) Objective Vital Signs Last 24 Hour Vital Signs Date Time Temp Pulse Resp B/P (MAP) Pulse Ox O2 Delivery O2 Flow Rate FiO2 07/31/19 16:00 Nasal Cannula 2.0 07/31/19 16:00 98.8 90 31 137/60 (85) 93 07/31/19 16:00 89/46 07/31/19 16:00 85 07/31/19 15:30 71 26 132/45 (74) 93 07/31/19 15:00 82 30 131/58 (82) 93 07/31/19 15:00 132/45 07/31/19 14:30 89 26 118/62 (80) 93 07/31/19 14:00 77 19 84/41 (55) 94 07/31/19 14:00 84/41 07/31/19 13:30 73 22 92/45 (61) 94 07/31/19 13:00 76 19 89/62 (71) 95 07/31/19 13:00 89/62 07/31/19 12:30 76 23 112/41 (64) 96 07/31/19 12:00 75 07/31/19 12:00 99.0 76 20 93/39 (57) 96 07/31/19 12:00 93/39 07/31/19 12:00 Nasal Cannula 2.0 07/31/19 11:30 78 26 113/40 (64) 95 07/31/19 11:00 81 24 108/47 (67) 96 07/31/19 11:00 108/47 07/31/19 10:30 76 22 114/30 (58) 96 07/31/19 10:00 68 7 125/25 (58) 96 07/31/19 10:00 125/25 07/31/19 09:30 73 23 99/41 (60) 95 07/31/19 09:23 106/40 07/31/19 09:00 70 26 106/40 (62) 96 07/31/19 09:00 106/40 07/31/19 08:30 62 22 108/38 (61) 94 07/31/19 08:00 98.8 61 20 91/40 (57) 95 07/31/19 08:00 Nasal Cannula 2.0 07/31/19 08:00 91/40 07/31/19 08:00 65 07/31/19 07:30 61 21 91/40 (57) 94 07/31/19 07:01 72 22 115/34 (61) 96 07/31/19 07:00 115/34 07/31/19 06:40 96 Room Air 21 07/31/19 06:40 98 16 96 Room Air 21 07/31/19 06:31 84 23 94/42 (59) 99 07/31/19 06:00 94/42 07/31/19 06:00 55 20 108/34 (58) 99 07/31/19 05:30 56 20 110/33 (58) 98 07/31/19 05:00 57 20 107/35 (59) 100 07/31/19 05:00 107/35 07/31/19 04:30 57 18 101/32 (55) 98 07/31/19 04:00 54 07/31/19 04:00 99.0 59 19 116/36 (62) 99 07/31/19 04:00 116/36 07/31/19 04:00 Nasal Cannula 2.0 07/31/19 03:30 66 21 113/41 (65) 95 07/31/19 03:00 113/41 07/31/19 03:00 65 19 120/39 (66) 96 07/31/19 02:52 70 18 114/40 (64) 98 07/31/19 02:30 70 18 114/40 (64) 96 07/31/19 02:00 125/44 07/31/19 02:00 77 23 107/44 (65) 94 07/31/19 01:30 66 21 100/36 (57) 94 07/31/19 01:15 64 21 108/34 (58) 95 07/31/19 01:00 65 21 126/43 (70) 97 07/31/19 01:00 110/41 07/31/19 00:30 61 23 110/33 (58) 94 07/31/19 00:05 98/29 07/31/19 00:00 65 07/31/19 00:00 98.8 70 21 116/44 (68) 93 07/31/19 00:00 116/52 07/31/19 00:00 Nasal Cannula 2.0 07/30/19 23:30 65 21 98/29 (52) 93 07/30/19 23:15 62 21 102/31 (54) 94 07/30/19 23:00 88/36 07/30/19 23:00 68 22 99/34 (55) 96 07/30/19 22:45 62 20 106/31 (56) 94 07/30/19 22:30 77 25 102/33 (56) 95 07/30/19 22:15 68 22 120/35 (63) 93 07/30/19 22:00 62 23 123/39 (67) 94 07/30/19 22:00 120/35 07/30/19 21:45 74 22 111/39 (63) 95 07/30/19 21:30 76 24 106/26 (52) 95 07/30/19 21:15 58 19 117/37 (63) 94 07/30/19 21:00 66 23 121/34 (63) 95 07/30/19 21:00 117/37 07/30/19 20:45 79 25 104/46 (65) 93 07/30/19 20:30 66 21 129/40 (69) 93 07/30/19 20:15 68 21 126/44 (71) 95 07/30/19 20:00 Nasal Cannula 2.0 07/30/19 20:00 126/44 07/30/19 20:00 98.6 79 21 115/40 (65) 95 07/30/19 19:45 90 23 109/30 (56) 95 07/30/19 19:30 73 23 127/59 (81) 94 07/30/19 19:28 75 07/30/19 19:15 74 21 139/38 (71) 95 07/30/19 19:00 77 18 132/45 (74) 96 07/30/19 18:00 73 25 94/35 (54) 97 07/30/19 17:30 69 21 115/33 (60) 94 Height (Feet): 5 Height (Inches): 4.00 Weight (Pounds): 127 General Appearance: no acute distress HEENT: normocephalic, atraumatic, anicteric, mucous membranes moist Respiratory/Chest: crackles/rales, rhonchi - bilaterally, other - some sob noted Cardiovascular: normal rate, regular rhythm, no gallop/murmur, no JVD Abdomen: normal bowel sounds, soft, non tender, no organomegaly, non distended Genitourinary: other - + jones - urine slt cloudy Extremities: no cyanosis Skin: no rash Neurologic/Psychiatric: brim shaper II-XII grossly normal, alert, responsive Lymphatic: no neck adenopathy Musculoskeletal: no effusion Objective Procedure: XRAY Chest 1v Indication: Shortness of breath Technique: XRAY Chest 1v Comparison: 07/29/2019 Chest x-ray - 07/31/19 - Findings: Heart size and mediastinal contours are stable. Patient is rotated to the right. There are increasing opacities at the lung bases, right greater than left. Left superhilar atelectasis or scarring is unchanged. There is an development of a small right-sided pleural effusion. No radiographically appreciable pneumothorax. Osseous structures stable. Multiple surgical clips noted projecting over the region of the right elbow. Impression: Limited exam due to suboptimal positioning. Worsening aeration with increasing bilateral airspace opacities, right greater than left. Interval development of a small right pleural effusion. Microbiology Date/Time Source Procedure Growth Status 07/29/19 17:00 Blood Blood Culture - Preliminary NO GROWTH AFTER 24 HOURS Resulted 07/29/19 17:10 Sputum Induced Gram Stain - Final Resulted 07/29/19 17:10 Sputum Induced Sputum Culture Pending Resulted 07/28/19 10:55 Rectum - Final NO CARBAPENEM-RESISTANT ENTEROBACTERI... Complete Microbiology Date/Time Source Procedure Growth Status 07/29/19 17:00 Blood Blood Culture - Preliminary NO GROWTH AFTER 24 HOURS Resulted 07/29/19 16:45 Blood Blood Culture - Preliminary NO GROWTH AFTER 24 HOURS Resulted 07/29/19 17:10 Sputum Induced Gram Stain - Final Resulted 07/29/19 17:10 Sputum Induced Sputum Culture Pending Resulted Laboratory Tests Test 07/31/19 04:00 07/31/19 05:30 White Blood Count 5.2 K/UL (4.8-10.8) Red Blood Count 3.63 M/UL (4.70-6.10) L Hemoglobin 11.4 G/DL (14.2-18.0) L Hematocrit 33.5 % (42.0-52.0) L Mean Corpuscular Volume 93 FL (80-99) Mean Corpuscular Hemoglobin 31.5 PG (27.0-31.0) H Mean Corpuscular Hemoglobin Concent 34.1 G/DL (32.0-36.0) Red Cell Distribution Width 13.7 % (11.6-14.8) Platelet Count 339 K/UL (150-450) Mean Platelet Volume 5.4 FL (6.5-10.1) L Neutrophils (%) (Auto) 54.6 % (45.0-75.0) Lymphocytes (%) (Auto) 32.3 % (20.0-45.0) Monocytes (%) (Auto) 10.5 % (1.0-10.0) H Eosinophils (%) (Auto) 1.5 % (0.0-3.0) Basophils (%) (Auto) 1.2 % (0.0-2.0) Prothrombin Time 11.4 SEC (9.30-11.50) Prothromb Time International Ratio 1.1 (0.9-1.1) Activated Partial Thromboplast Time 36 SEC (23-33) H Sodium Level 139 MMOL/L (136-145) Potassium Level 2.3 MMOL/L (3.5-5.1) *L Chloride Level 106 MMOL/L (98-107) Carbon Dioxide Level 26 MMOL/L (21-32) Anion Gap 6 mmol/L (5-15) Blood Urea Nitrogen 6 mg/dL (7-18) L Creatinine 0.5 MG/DL (0.55-1.30) L Estimat Glomerular Filtration Rate > 60 mL/min (>60) Glucose Level 114 MG/DL (74-106) H Calcium Level 7.0 MG/DL (8.5-10.1) L Phosphorus Level 2.2 MG/DL (2.5-4.9) L Magnesium Level 1.4 MG/DL (1.8-2.4) L Total Bilirubin 0.7 MG/DL (0.2-1.0) Aspartate Amino Transf (AST/SGOT) 197 U/L (15-37) H Alanine Aminotransferase (ALT/SGPT) 499 U/L (12-78) H Alkaline Phosphatase 129 U/L (46-116) H Total Protein 6.9 G/DL (6.4-8.2) Albumin 1.9 G/DL (3.4-5.0) L Globulin 5.0 g/dL Albumin/Globulin Ratio 0.4 (1.0-2.7) L Lipase 170 U/L (73-393) Hepatitis B DNA (IU/mL) Pending Current Medications Medications (Trade) Dose Ordered Sig/Kendra Route PRN Reason Start Time Stop Time Status Last Admin Dose Admin Acetaminophen (Tylenol) 650 mg Q4H PRN ORAL Mild Pain (Pain Scale 1-3) 07/28/19 12:15 08/27/19 12:14 Acetaminophen (Tylenol) 650 mg Q4H PRN ORAL fever 07/28/19 12:15 08/27/19 12:14 Albuterol/ Ipratropium (Albuterol/ Ipratropium) 3 ml Q4H PRN HHN Shortness of Breath 07/28/19 12:15 08/02/19 12:14 Chlorhexidine Gluconate (Judi-Hex 2%) 1 applic DAILY@2000 TOPIC 07/30/19 20:00 08/29/19 19:59 07/30/19 19:54 Dextrose (Dextrose 50%) 25 ml Q30M PRN IV Hypoglycemia 07/28/19 12:15 08/27/19 12:14 Dextrose (Dextrose 50%) 50 ml Q30M PRN IV Hypoglycemia 07/28/19 12:15 08/27/19 12:14 Dopamine HCl/ Dextrose 250 ml @ 0 mls/hr Q24H IV 07/28/19 19:00 08/27/19 18:59 07/31/19 09:23 Heparin Sodium (Porcine) (Heparin 5000 units/ml) 5,000 units EVERY 12 HOURS SUBQ 07/28/19 21:00 08/27/19 20:59 07/31/19 09:28 Heparin Sodium/ Sodium Chloride (Heparin 1000 units/500ml Premix) 1,000 unit ONCE PRN IV Picc line placement 07/30/19 05:30 08/01/19 05:29 Hydromorphone HCl (Dilaudid) 1 mg Q4H PRN IVP Moderate Pain (Pain Scale 4-6) 07/28/19 12:15 08/04/19 12:14 Hydromorphone HCl (Dilaudid) 2 mg Q4H PRN IVP Severe Pain (Pain Scale 7-10) 07/28/19 12:15 08/04/19 12:14 Levothyroxine Sodium (Synthroid) 50 mcg DAILY@0630 ORAL 07/30/19 06:30 08/29/19 06:29 07/31/19 05:35 Lidocaine HCl (Xylocaine 1% 30ml) 30 ml ONCE PRN INJ PICC line placement 07/30/19 05:30 08/01/19 05:29 Meropenem 1 gm/ Sodium Chloride 100 ml @ 200 mls/hr Q8H IVPB 07/28/19 20:00 08/02/19 19:59 07/31/19 13:57 Midodrine (Pro-Amatine) 5 mg THREE TIMES A DAY ORAL 07/30/19 13:00 08/29/19 12:59 07/31/19 13:58 Sodium Chloride 1,000 ml @ 125 mls/hr Q8H IV 07/29/19 09:00 08/28/19 08:59 07/31/19 09:24 Vancomycin HCl (Vanco rx to dose) 1 ea DAILY PRN MISC Per rx protocol 07/28/19 12:00 08/27/19 11:59 Vancomycin HCl 1 gm/Dextrose 275 ml @ 183.708 mls/hr Q12HR IVPB 07/30/19 21:00 08/04/19 20:59 07/31/19 09:24 Rafia Rand MD Jul 31, 2019 17:25
--- NOTE | 2019-07-31 17:35 | Pulmonolgy Critical Care Note ---
Critical Care - Asmt/Plan Problems: (1) Severe sepsis (2) Septic shock (3) Ulcer of right heel (4) Acute and chronic respiratory failure with hypoxia (5) CHF (congestive heart failure) (6) Iron deficiency anemia (7) GERD (gastroesophageal reflux disease) (8) HTN (hypertension) (9) Hypothyroid (10) HLD (hyperlipidemia) (11) Down's syndrome (12) Aortic stenosis (13) Acute on chronic respiratory failure with hypoxia and hypercapnia Respiratory: monitor respiratory rate, CXR, other - PRN HHN's Cardiac: continue pressors - Titrate DA to MAP > 60, continue MIDODRINE Renal: keep IV fluid, check electrolytes Infectious Disease: continue antibiotics - KARISHMA/VANCO Gastrointestinal: continue feedings/current rate Endocrine: monitor blood sugar Hematologic: monitor H/H Neurologic: keep patient comfortable Prophylaxis: Heparin Disposition: keep in ICU Time Spent (Minutes): other - 35 Discussed with: nurses, consultants, other - DNAR/DNI Critical Care - Objective Last 24 Hour Vital Signs Date Time Temp Pulse Resp B/P (MAP) Pulse Ox O2 Delivery O2 Flow Rate FiO2 07/31/19 16:00 Nasal Cannula 2.0 07/31/19 16:00 98.8 90 31 137/60 (85) 93 07/31/19 16:00 89/46 07/31/19 16:00 85 07/31/19 15:30 71 26 132/45 (74) 93 07/31/19 15:00 82 30 131/58 (82) 93 07/31/19 15:00 132/45 07/31/19 14:30 89 26 118/62 (80) 93 07/31/19 14:00 77 19 84/41 (55) 94 07/31/19 14:00 84/41 07/31/19 13:30 73 22 92/45 (61) 94 07/31/19 13:00 76 19 89/62 (71) 95 07/31/19 13:00 89/62 07/31/19 12:30 76 23 112/41 (64) 96 07/31/19 12:00 75 07/31/19 12:00 99.0 76 20 93/39 (57) 96 07/31/19 12:00 93/39 07/31/19 12:00 Nasal Cannula 2.0 07/31/19 11:30 78 26 113/40 (64) 95 07/31/19 11:00 81 24 108/47 (67) 96 07/31/19 11:00 108/47 07/31/19 10:30 76 22 114/30 (58) 96 07/31/19 10:00 68 7 125/25 (58) 96 07/31/19 10:00 125/25 07/31/19 09:30 73 23 99/41 (60) 95 07/31/19 09:23 106/40 07/31/19 09:00 70 26 106/40 (62) 96 07/31/19 09:00 106/40 07/31/19 08:30 62 22 108/38 (61) 94 07/31/19 08:00 98.8 61 20 91/40 (57) 95 07/31/19 08:00 Nasal Cannula 2.0 07/31/19 08:00 91/40 07/31/19 08:00 65 07/31/19 07:30 61 21 91/40 (57) 94 07/31/19 07:01 72 22 115/34 (61) 96 07/31/19 07:00 115/34 07/31/19 06:40 96 Room Air 21 07/31/19 06:40 98 16 96 Room Air 21 07/31/19 06:31 84 23 94/42 (59) 99 07/31/19 06:00 94/42 07/31/19 06:00 55 20 108/34 (58) 99 07/31/19 05:30 56 20 110/33 (58) 98 07/31/19 05:00 57 20 107/35 (59) 100 07/31/19 05:00 107/35 07/31/19 04:30 57 18 101/32 (55) 98 07/31/19 04:00 54 07/31/19 04:00 99.0 59 19 116/36 (62) 99 07/31/19 04:00 116/36 07/31/19 04:00 Nasal Cannula 2.0 07/31/19 03:30 66 21 113/41 (65) 95 07/31/19 03:00 113/41 07/31/19 03:00 65 19 120/39 (66) 96 07/31/19 02:52 70 18 114/40 (64) 98 07/31/19 02:30 70 18 114/40 (64) 96 07/31/19 02:00 125/44 07/31/19 02:00 77 23 107/44 (65) 94 07/31/19 01:30 66 21 100/36 (57) 94 07/31/19 01:15 64 21 108/34 (58) 95 07/31/19 01:00 65 21 126/43 (70) 97 07/31/19 01:00 110/41 07/31/19 00:30 61 23 110/33 (58) 94 07/31/19 00:05 98/29 07/31/19 00:00 65 07/31/19 00:00 98.8 70 21 116/44 (68) 93 07/31/19 00:00 116/52 07/31/19 00:00 Nasal Cannula 2.0 07/30/19 23:30 65 21 98/29 (52) 93 07/30/19 23:15 62 21 102/31 (54) 94 07/30/19 23:00 88/36 07/30/19 23:00 68 22 99/34 (55) 96 07/30/19 22:45 62 20 106/31 (56) 94 07/30/19 22:30 77 25 102/33 (56) 95 07/30/19 22:15 68 22 120/35 (63) 93 07/30/19 22:00 62 23 123/39 (67) 94 07/30/19 22:00 120/35 07/30/19 21:45 74 22 111/39 (63) 95 07/30/19 21:30 76 24 106/26 (52) 95 07/30/19 21:15 58 19 117/37 (63) 94 07/30/19 21:00 66 23 121/34 (63) 95 07/30/19 21:00 117/37 07/30/19 20:45 79 25 104/46 (65) 93 07/30/19 20:30 66 21 129/40 (69) 93 07/30/19 20:15 68 21 126/44 (71) 95 07/30/19 20:00 Nasal Cannula 2.0 07/30/19 20:00 126/44 07/30/19 20:00 98.6 79 21 115/40 (65) 95 07/30/19 19:45 90 23 109/30 (56) 95 07/30/19 19:30 73 23 127/59 (81) 94 07/30/19 19:28 75 07/30/19 19:15 74 21 139/38 (71) 95 07/30/19 19:00 77 18 132/45 (74) 96 07/30/19 18:00 73 25 94/35 (54) 97 Status: awake, somnolent Condition: critical HEENT: atraumatic, normocephalic Lungs: clear Heart: HR/BP unstable Abdomen: soft, non-tender, active bowel sounds Extremities: no C/C/E Decubiti: location - sac, stage - DRI Micro: Microbiology Date/Time Source Procedure Growth Status 07/29/19 17:00 Blood Blood Culture - Preliminary NO GROWTH AFTER 24 HOURS Resulted 07/29/19 16:45 Blood Blood Culture - Preliminary NO GROWTH AFTER 24 HOURS Resulted 07/29/19 17:10 Sputum Induced Gram Stain - Final Resulted 07/29/19 17:10 Sputum Induced Sputum Culture Pending Resulted Blood Sugars: BS controlled Critical Care - Subjective ROS Limited/Unobtainable: Yes ICU Day: 4 Interval Events: DA 10 Midline changed to PICC TTE done report pending No change in MD Condition: critical IV Access: PICC EKG Rhythm: Sinus Rhythm FI02: 21 Sputum Amount: None Secretions: None Fluids: NS@125 Drips: DA 10 Tube Feeding Amount: 55 I&O: Intake and Output 07/30/19 07/31/19 18:59 06:59 Intake Total 2368.59 ml 2926.258 ml Output Total 2715 ml 2420 ml Balance -346.41 ml 506.258 ml Intake Free Water 160 ml IV Total 1768.59 ml 2296.258 ml Tube Feeding 430 ml 630 ml Other 10 ml Output Urine Total 2715 ml 2420 ml Subjective: GISELLE Labs: Laboratory Tests Test 07/31/19 04:00 07/31/19 05:30 White Blood Count 5.2 K/UL (4.8-10.8) Red Blood Count 3.63 M/UL (4.70-6.10) L Hemoglobin 11.4 G/DL (14.2-18.0) L Hematocrit 33.5 % (42.0-52.0) L Mean Corpuscular Volume 93 FL (80-99) Mean Corpuscular Hemoglobin 31.5 PG (27.0-31.0) H Mean Corpuscular Hemoglobin Concent 34.1 G/DL (32.0-36.0) Red Cell Distribution Width 13.7 % (11.6-14.8) Platelet Count 339 K/UL (150-450) Mean Platelet Volume 5.4 FL (6.5-10.1) L Neutrophils (%) (Auto) 54.6 % (45.0-75.0) Lymphocytes (%) (Auto) 32.3 % (20.0-45.0) Monocytes (%) (Auto) 10.5 % (1.0-10.0) H Eosinophils (%) (Auto) 1.5 % (0.0-3.0) Basophils (%) (Auto) 1.2 % (0.0-2.0) Prothrombin Time 11.4 SEC (9.30-11.50) Prothromb Time International Ratio 1.1 (0.9-1.1) Activated Partial Thromboplast Time 36 SEC (23-33) H Sodium Level 139 MMOL/L (136-145) Potassium Level 2.3 MMOL/L (3.5-5.1) *L Chloride Level 106 MMOL/L (98-107) Carbon Dioxide Level 26 MMOL/L (21-32) Anion Gap 6 mmol/L (5-15) Blood Urea Nitrogen 6 mg/dL (7-18) L Creatinine 0.5 MG/DL (0.55-1.30) L Estimat Glomerular Filtration Rate > 60 mL/min (>60) Glucose Level 114 MG/DL (74-106) H Calcium Level 7.0 MG/DL (8.5-10.1) L Phosphorus Level 2.2 MG/DL (2.5-4.9) L Magnesium Level 1.4 MG/DL (1.8-2.4) L Total Bilirubin 0.7 MG/DL (0.2-1.0) Aspartate Amino Transf (AST/SGOT) 197 U/L (15-37) H Alanine Aminotransferase (ALT/SGPT) 499 U/L (12-78) H Alkaline Phosphatase 129 U/L (46-116) H Total Protein 6.9 G/DL (6.4-8.2) Albumin 1.9 G/DL (3.4-5.0) L Globulin 5.0 g/dL Albumin/Globulin Ratio 0.4 (1.0-2.7) L Lipase 170 U/L (73-393) Hepatitis B DNA (IU/mL) Pending Yovani Luevano MD Jul 31, 2019 17:35
--- NOTE | 2019-07-31 18:45 | Consultation ---
DATE OF CONSULTATION: 07/31/2019 CARDIOLOGY CONSULTATION CONSULTING PHYSICIAN: Valerio Owen M.D. REFERRING PHYSICIAN: Prashant Gallagher M.D. REASON FOR CONSULTATION: Hypotension and history of SVT. HISTORY OF PRESENT ILLNESS: The patient is a 54-year-old gentleman with history of Down syndrome, dysphagia status post PEG placement, prior pneumonia as well as history of SVT and congestive heart failure, and history of respiratory failure, who was brought by paramedics to the emergency room for hypernatremia. Initially, the patient was hypertensive. The patient is nonverbal and is not able to provide any information. Subsequently, his blood pressure dropped and required multiple boluses of IV fluids. The patient was transferred to intensive care unit and was started on pressors. CT of abdomen and pelvis was limited study showed some bilateral atelectasis. The patient was started on broad spectrum IV antibiotics and was admitted to intensive care unit on Levophed. REVIEW OF SYSTEMS: Cannot be obtained. PAST MEDICAL HISTORY: 1. Hypertension. 2. Congestive heart failure. 3. History of supraventricular tachycardia. 4. Down syndrome. 5. Iron deficiency anemia. 6. Hypothyroidism. 7. Gastroesophageal reflux disease. 8. Bilateral foot pressure ulcers. 9. Status post PEG placement. ALLERGIES: He is allergic to NSAIDs and ketamine. MEDICATIONS: Per reconciliation. SOCIAL HISTORY: detention resident. Does not smoke or drink alcohol. FAMILY HISTORY: Noncontributory. PHYSICAL EXAMINATION: VITAL SIGNS: Show blood pressure of 106/40, pulse 65, and respirations 18. He is afebrile. HEAD AND NECK: Shows no JVD or carotid bruits. LUNGS: Clear. CARDIOVASCULAR: Shows regular S1 and S2 with no gallop. ABDOMEN: Status post G-tube. EXTREMITIES: No pitting edema. LABORATORY AND DIAGNOSTIC DATA: His labs show white count of 5.2, hemoglobin 11.4, hematocrit 33.5, and platelet count 339,000. Sodium initially was 125, however, today is 139; potassium 2.3; BUN of 6; creatinine 0.5; and glucose of 114. ASSESSMENT AND PLAN: 1. Hypotension. The patient is on midodrine 5 mg three times daily. We will try to taper off dopamine should be able to see systolic blood pressure more than 90. 2. History of supraventricular tachycardia. We will watch the patient on telemetry. He has not had any SVT on this admission. 3. Dysphagia, status post PEG placement. 4. Hepatitis B. 5. Down syndrome. 6. Iron deficiency anemia. 7. Septic shock. 8. Right heel ulcer. Thank you very much for allowing me to participate in the care of this patient. Please do not hesitate to contact me for any questions regarding my evaluation. Valerio Owen M.D. DR: ALFREDO JOB#: [id number] CC:
[2019-07-31] MEDS: Dyna-Hex 2% Top Sol 2oz TOPIC SCH (20:15)
[2019-08-01] VITALS (68 sets, daily range): BP systolic 72–162; BP diastolic 24–74
[2019-08-01 05:54] LABS: BASOPHILS % (AUTO) 1.2 % (0.0-2.0); EOSINOPHILS % (AUTO) 1.3 % (0.0-3.0); HEMATOCRIT 40.1 % (42.0-52.0); HEMOGLOBIN 13.2 G/DL (14.2-18.0); LYMPHOCYTES % (AUTO) 32.4 % (20.0-45.0); MEAN CORPUSCULAR VOLUME 94 FL (80-99); MONOCYTES % (AUTO) 7.5 % (1.0-10.0); NEUTROPHILS % (AUTO) 57.6 % (45.0-75.0); PLATELET COUNT 348 K/UL (150-450); RED BLOOD COUNT 4.28 M/UL (4.70-6.10); RED CELL DISTRIBUTION WIDTH 14.2 % (11.6-14.8); WHITE BLOOD COUNT 6.3 K/UL (4.8-10.8)
[2019-08-01 06:08] LABS: ALANINE AMINOTRANSFERASE 527 U/L (12-78); ALBUMIN 2.2 G/DL (3.4-5.0); ALBUMIN/GLOBULIN RATIO 0.4 (1.0-2.7); ALKALINE PHOSPHATASE 175 U/L (46-116); ANION GAP 4 mmol/L (5-15); ASPARTATE AMINO TRANSFERASE 218 U/L (15-37); BILIRUBIN,TOTAL 0.8 MG/DL (0.2-1.0); BLOOD UREA NITROGEN 13 mg/dL (7-18); CALCIUM 7.7 MG/DL (8.5-10.1); CARBON DIOXIDE 28 MMOL/L (21-32); CHLORIDE 103 MMOL/L (98-107); CREATININE 0.6 MG/DL (0.55-1.30); SODIUM 135 MMOL/L (136-145)
--- NOTE | 2019-08-01 07:28 | General Progress Note ---
Assessment/Plan Status: other - critical Assessment/Plan: GI: Plan Problems: (1) Hepatitis B (2) Iron deficiency anemia (3) GERD (gastroesophageal reflux disease) (4) Down's syndrome (constipation) Plan rising LFTs 2/2 to Hepatitis B GT dependent constipation start patient on Lamivudine 100mg GT BID >> discussed with pharmacist, non- formulary will need script for outpatient treatment Hep B DNA>>> pending GTF anemia panel prn transfusions PPI repeat liver function tests colace and mirakax mineral oil enema abd us Subjective ROS Limited/Unobtainable: No Allergies: Coded Allergies: KETAMINE (Verified Allergy, Unknown, 05/29/19) NSAIDS (NON-STEROIDAL ANTI-INFLAMMA (Verified Allergy, Unknown, 05/29/19) Objective Last 24 Hour Vital Signs Date Time Temp Pulse Resp B/P (MAP) Pulse Ox O2 Delivery O2 Flow Rate FiO2 08/01/19 07:00 57 21 122/51 (74) 99 08/01/19 06:00 105/81 08/01/19 06:00 91 21 106/74 (85) 98 08/01/19 05:15 91 21 90/51 (64) 98 08/01/19 05:00 75 19 91/40 (57) 99 08/01/19 05:00 90/51 08/01/19 04:45 98 23 162/68 (99) 98 08/01/19 04:30 71 22 144/65 (91) 99 08/01/19 04:15 84 27 121/58 (79) 93 08/01/19 04:00 98.7 63 21 128/61 (83) 97 08/01/19 04:00 Nasal Cannula 2.0 08/01/19 04:00 121/58 08/01/19 04:00 63 08/01/19 03:45 59 22 116/49 (71) 96 08/01/19 03:30 62 21 124/48 (73) 96 08/01/19 03:15 64 23 143/53 (83) 95 08/01/19 03:09 91/70 08/01/19 03:08 /70 08/01/19 03:06 81 21 91/70 (77) 98 08/01/19 02:04 91 23 85/47 (60) 100 08/01/19 02:00 74 24 85/31 (49) 99 08/01/19 02:00 85/47 08/01/19 01:45 60 21 122/48 (72) 98 08/01/19 01:30 57 22 128/54 (78) 97 08/01/19 01:15 57 21 105/37 (59) 98 08/01/19 01:00 107/67 08/01/19 01:00 67 23 116/45 (68) 98 08/01/19 00:50 69 25 102/43 (62) 98 08/01/19 00:45 68 21 84/40 (55) 98 08/01/19 00:30 69 20 128/39 (68) 92 08/01/19 00:15 60 19 120/38 (65) 97 08/01/19 00:00 98.5 66 22 114/44 (67) 98 08/01/19 00:00 79 08/01/19 00:00 120/38 08/01/19 00:00 Nasal Cannula 2.0 07/31/19 23:45 73 19 115/48 (70) 97 07/31/19 23:30 74 23 91/46 (61) 99 07/31/19 23:15 73 23 117/41 (66) 96 07/31/19 23:00 117/41 07/31/19 23:00 63 21 112/62 (79) 96 07/31/19 22:45 61 21 118/44 (68) 96 07/31/19 22:30 63 25 114/51 (72) 96 07/31/19 22:15 62 14 113/55 (74) 96 07/31/19 22:00 98/78 07/31/19 22:00 63 26 98/78 (85) 97 07/31/19 21:45 65 22 106/39 (61) 96 07/31/19 21:30 72 24 125/40 (68) 97 07/31/19 21:15 65 28 138/34 (68) 95 07/31/19 21:00 128/44 07/31/19 21:00 98.9 65 28 128/44 (72) 96 07/31/19 20:47 99.9 07/31/19 20:45 99.9 70 27 134/64 (87) 96 07/31/19 20:30 80 21 103/51 (68) 96 07/31/19 20:15 72 28 123/48 (73) 96 07/31/19 20:00 123/48 07/31/19 20:00 Nasal Cannula 2.0 07/31/19 20:00 91 30 113/56 (75) 95 07/31/19 19:45 101.2 80 32 113/57 (75) 95 07/31/19 19:30 104 07/31/19 19:30 80 37 155/55 (88) 97 07/31/19 19:15 86 22 132/62 (85) 98 07/31/19 19:14 87 19 100 Room Air 21 07/31/19 19:14 100 Room Air 21 07/31/19 19:00 112/57 07/31/19 19:00 142/57 07/31/19 19:00 94 25 112/57 (75) 93 07/31/19 18:59 64/31 07/31/19 18:45 92 25 64/31 (42) 94 07/31/19 18:30 109 32 142/46 (78) 93 07/31/19 18:00 79 24 117/52 (73) 92 07/31/19 18:00 94/76 07/31/19 18:00 77 37 82/47 (59) 93 07/31/19 17:30 101 25 94/76 (82) 93 07/31/19 17:00 65/49 07/31/19 17:00 98 35 82/47 (59) 93 07/31/19 16:00 Nasal Cannula 2.0 07/31/19 16:00 98.8 90 31 137/60 (85) 93 07/31/19 16:00 89/46 07/31/19 16:00 85 07/31/19 15:30 71 26 132/45 (74) 93 07/31/19 15:00 82 30 131/58 (82) 93 07/31/19 15:00 132/45 07/31/19 14:30 89 26 118/62 (80) 93 07/31/19 14:00 77 19 84/41 (55) 94 07/31/19 14:00 84/41 07/31/19 13:30 73 22 92/45 (61) 94 07/31/19 13:00 76 19 89/62 (71) 95 07/31/19 13:00 89/62 07/31/19 12:30 76 23 112/41 (64) 96 07/31/19 12:00 75 07/31/19 12:00 99.0 76 20 93/39 (57) 96 07/31/19 12:00 93/39 07/31/19 12:00 Nasal Cannula 2.0 07/31/19 11:30 78 26 113/40 (64) 95 07/31/19 11:00 81 24 108/47 (67) 96 07/31/19 11:00 108/47 07/31/19 10:30 76 22 114/30 (58) 96 07/31/19 10:00 68 7 125/25 (58) 96 07/31/19 10:00 125/25 07/31/19 09:30 73 23 99/41 (60) 95 07/31/19 09:23 106/40 07/31/19 09:00 70 26 106/40 (62) 96 07/31/19 09:00 106/40 07/31/19 08:30 62 22 108/38 (61) 94 07/31/19 08:00 98.8 61 20 91/40 (57) 95 07/31/19 08:00 Nasal Cannula 2.0 07/31/19 08:00 91/40 07/31/19 08:00 65 07/31/19 07:30 61 21 91/40 (57) 94 Intake and Output 07/31/19 08/01/19 19:00 07:00 Intake Total 2563.865 ml 3330.000 ml Output Total 1775 ml 2720 ml Balance 788.865 ml 610.000 ml Intake Free Water 200 ml IV Total 1803.865 ml 2355.000 ml Tube Feeding 660 ml 715 ml Other 100 ml 60 ml Output Urine Total 1775 ml 2720 ml Laboratory Tests 08/01/19 04:33: White Blood Count 6.3, Red Blood Count 4.28L, Hemoglobin 13.2L, Hematocrit 40.1L , Mean Corpuscular Volume 94, Mean Corpuscular Hemoglobin 30.9, Mean Corpuscular Hemoglobin Concent 33.0, Red Cell Distribution Width 14.2, Platelet Count 348, Mean Platelet Volume 5.6L, Neutrophils (%) (Auto) 57.6, Lymphocytes ( %) (Auto) 32.4, Monocytes (%) (Auto) 7.5, Eosinophils (%) (Auto) 1.3, Basophils (%) (Auto) 1.2, Sodium Level 135L, Potassium Level 4.0#, Chloride Level 103, Carbon Dioxide Level 28, Anion Gap 4L, Blood Urea Nitrogen 13, Creatinine 0.6, Estimat Glomerular Filtration Rate > 60, Glucose Level 127H, Calcium Level 7.7L , Magnesium Level 2.3, Total Bilirubin 0.8, Aspartate Amino Transf (AST/SGOT) 218H, Alanine Aminotransferase (ALT/SGPT) 527H, Alkaline Phosphatase 175H, Total Protein 8.0, Albumin 2.2L, Globulin 5.8, Albumin/Globulin Ratio 0.4L Height (Feet): 5 Height (Inches): 4.00 Weight (Pounds): 129 General Appearance: lethargic EENT: normal ENT inspection Neck: supple Cardiovascular: normal rate Respiratory/Chest: decreased breath sounds Abdomen: normal bowel sounds, non tender, soft Extremities: non-tender Lewis Rubio MD Aug 01, 2019 07:28
[2019-08-01] MEDS: Midodrine 10mg tab ORAL SCH ×3 (08:47→17:34)
[2019-08-01] MEDS: Heparin 5000 units/ml inj SUBQ SCH ×2 (08:49→20:41)
[2019-08-01] MEDS ORDERED: Docusate 100mg cap ORAL SCH (09:00)
[2019-08-01] MEDS: Docusate 100mg/10ml Liq GT SCH ×2 (09:42→17:34)
[2019-08-01] MEDS ORDERED: NS 275ml ONE ×4 (13:29→14:11)
[2019-08-01] MEDS: Vancomycin 750mg/D5W 275ml IVPB SCH ×2 (13:30)
--- NOTE | 2019-08-01 13:55 | Surgery Progress Note ---
Surgery Progress Note Subjective Additional Comments labs improving lft's stable exam stable comfortable appearing Objective Last 24 Hour Vital Signs Date Time Temp Pulse Resp B/P (MAP) Pulse Ox O2 Delivery O2 Flow Rate FiO2 08/01/19 12:15 57 25 106/47 (66) 98 08/01/19 12:00 97.4 55 36 87/51 (63) 97 08/01/19 12:00 85/49 08/01/19 12:00 Nasal Cannula 2.0 08/01/19 11:30 57 21 99/38 (58) 98 08/01/19 11:00 58 23 113/37 (62) 99 08/01/19 11:00 101/45 08/01/19 10:45 94/40 08/01/19 10:30 57 22 104/42 (62) 97 08/01/19 10:30 104/42 08/01/19 10:15 84/35 08/01/19 10:00 58 21 96/50 (65) 96 08/01/19 10:00 124/43 08/01/19 09:45 161/60 08/01/19 09:42 147/57 08/01/19 09:30 56 21 124/43 (70) 97 08/01/19 09:30 147/57 08/01/19 09:00 148/59 08/01/19 09:00 61 25 106/63 (77) 98 08/01/19 08:45 106/63 08/01/19 08:30 98.0 63 22 131/50 (77) 97 08/01/19 08:30 124/59 08/01/19 08:15 127/51 08/01/19 08:00 Nasal Cannula 2.0 08/01/19 08:00 108/45 08/01/19 08:00 61 22 108/45 (66) 08/01/19 08:00 68 08/01/19 07:26 97 Room Air 21 08/01/19 07:00 57 21 122/51 (74) 99 08/01/19 07:00 122/51 08/01/19 06:00 105/81 08/01/19 06:00 91 21 106/74 (85) 98 08/01/19 05:15 91 21 90/51 (64) 98 08/01/19 05:00 75 19 91/40 (57) 99 12/14/19 05:00 90/51 08/01/19 04:45 98 23 162/68 (99) 98 08/01/19 04:30 71 22 144/65 (91) 99 08/01/19 04:15 84 27 121/58 (79) 93 08/01/19 04:00 98.7 63 21 128/61 (83) 97 08/01/19 04:00 Nasal Cannula 2.0 08/01/19 04:00 121/58 08/01/19 04:00 63 08/01/19 03:45 59 22 116/49 (71) 96 08/01/19 03:30 62 21 124/48 (73) 96 08/01/19 03:15 64 23 143/53 (83) 95 08/01/19 03:09 91/70 08/01/19 03:08 91/70 08/01/19 03:06 81 21 91/70 (77) 98 08/01/19 02:04 91 23 85/47 (60) 100 08/01/19 02:00 74 24 85/31 (49) 99 08/01/19 02:00 85/47 08/01/19 01:45 60 21 122/48 (72) 98 08/01/19 01:30 57 22 128/54 (78) 97 08/01/19 01:15 57 21 105/37 (59) 98 08/01/19 01:00 107/67 08/01/19 01:00 67 23 116/45 (68) 98 08/01/19 00:50 69 25 102/43 (62) 98 08/01/19 00:45 68 21 84/40 (55) 98 08/01/19 00:30 69 20 128/39 (68) 92 08/01/19 00:15 60 19 120/38 (65) 97 08/01/19 00:00 98.5 66 22 114/44 (67) 98 08/01/19 00:00 79 08/01/19 00:00 120/38 08/01/19 00:00 Nasal Cannula 2.0 07/31/19 23:45 73 19 115/48 (70) 97 07/31/19 23:30 74 23 91/46 (61) 99 07/31/19 23:15 73 23 117/41 (66) 96 07/31/19 23:00 117/41 07/31/19 23:00 63 21 112/62 (79) 96 07/31/19 22:45 61 21 118/44 (68) 96 07/31/19 22:30 63 25 114/51 (72) 96 07/31/19 22:15 62 14 113/55 (74) 96 07/31/19 22:00 98/78 07/31/19 22:00 63 26 98/78 (85) 97 07/31/19 21:45 65 22 106/39 (61) 96 07/31/19 21:30 72 24 125/40 (68) 97 07/31/19 21:15 65 28 138/34 (68) 95 07/31/19 21:00 128/44 07/31/19 21:00 98.9 65 28 128/44 (72) 96 07/31/19 20:47 99.9 07/31/19 20:45 99.9 70 27 134/64 (87) 96 07/31/19 20:30 80 21 103/51 (68) 96 07/31/19 20:15 72 28 123/48 (73) 96 07/31/19 20:00 123/48 07/31/19 20:00 Nasal Cannula 2.0 07/31/19 20:00 91 30 113/56 (75) 95 07/31/19 19:45 101.2 80 32 113/57 (75) 95 07/31/19 19:30 104 07/31/19 19:30 80 37 155/55 (88) 97 07/31/19 19:15 86 22 132/62 (85) 98 07/31/19 19:14 87 19 100 Room Air 21 07/31/19 19:14 100 Room Air 21 07/31/19 19:00 112/57 07/31/19 19:00 142/57 07/31/19 19:00 94 25 112/57 (75) 93 07/31/19 18:59 64/31 07/31/19 18:45 92 25 64/31 (42) 94 07/31/19 18:30 109 32 142/46 (78) 93 07/31/19 18:00 79 24 117/52 (73) 92 07/31/19 18:00 94/76 07/31/19 18:00 77 37 82/47 (59) 93 07/31/19 17:30 101 25 94/76 (82) 93 07/31/19 17:00 65/49 07/31/19 17:00 98 35 82/47 (59) 93 07/31/19 16:00 Nasal Cannula 2.0 07/31/19 16:00 98.8 90 31 137/60 (85) 93 07/31/19 16:00 89/46 07/31/19 16:00 85 07/31/19 15:30 71 26 132/45 (74) 93 07/31/19 15:00 82 30 131/58 (82) 93 07/31/19 15:00 132/45 07/31/19 14:30 89 26 118/62 (80) 93 07/31/19 14:00 77 19 84/41 (55) 94 07/31/19 14:00 84/41 I&O Intake and Output 07/31/19 08/01/19 19:00 07:00 Intake Total 2563.865 ml 3330.000 ml Output Total 1775 ml 2720 ml Balance 788.865 ml 610.000 ml Intake Free Water 200 ml IV Total 1803.865 ml 2355.000 ml Tube Feeding 660 ml 715 ml Other 100 ml 60 ml Output Urine Total 1775 ml 2720 ml Dressing: other Wound: other Drains: other Respiratory: decreased breath sounds Abdomen: soft, present bowel sounds, non-distended Extremities: no tenderness, no cyanosis, other Laboratory Tests Test 08/01/19 04:33 08/01/19 08:05 White Blood Count 6.3 K/UL (4.8-10.8) Red Blood Count 4.28 M/UL (4.70-6.10) L Hemoglobin 13.2 G/DL (14.2-18.0) L Hematocrit 40.1 % (42.0-52.0) L Mean Corpuscular Volume 94 FL (80-99) Mean Corpuscular Hemoglobin 30.9 PG (27.0-31.0) Mean Corpuscular Hemoglobin Concent 33.0 G/DL (32.0-36.0) Red Cell Distribution Width 14.2 % (11.6-14.8) Platelet Count 348 K/UL (150-450) Mean Platelet Volume 5.6 FL (6.5-10.1) L Neutrophils (%) (Auto) 57.6 % (45.0-75.0) Lymphocytes (%) (Auto) 32.4 % (20.0-45.0) Monocytes (%) (Auto) 7.5 % (1.0-10.0) Eosinophils (%) (Auto) 1.3 % (0.0-3.0) Basophils (%) (Auto) 1.2 % (0.0-2.0) Sodium Level 135 MMOL/L (136-145) L Potassium Level 4.0 MMOL/L (3.5-5.1) # Chloride Level 103 MMOL/L (98-107) Carbon Dioxide Level 28 MMOL/L (21-32) Anion Gap 4 mmol/L (5-15) L Blood Urea Nitrogen 13 mg/dL (7-18) Creatinine 0.6 MG/DL (0.55-1.30) Estimat Glomerular Filtration Rate > 60 mL/min (>60) Glucose Level 127 MG/DL (74-106) H Calcium Level 7.7 MG/DL (8.5-10.1) L Magnesium Level 2.3 MG/DL (1.8-2.4) Total Bilirubin 0.8 MG/DL (0.2-1.0) Aspartate Amino Transf (AST/SGOT) 218 U/L (15-37) H Alanine Aminotransferase (ALT/SGPT) 527 U/L (12-78) H Alkaline Phosphatase 175 U/L (46-116) H Total Protein 8.0 G/DL (6.4-8.2) Albumin 2.2 G/DL (3.4-5.0) L Globulin 5.8 g/dL Albumin/Globulin Ratio 0.4 (1.0-2.7) L Vancomycin Level Trough 20.4 ug/mL (5.0-12.0) H Plan Problems: (1) Septic shock Assessment & Plan: This is a 54-year-old male with multi-medical morbidities history of Down's who presents with hypotension, tachycardia, abnormal electrolytes, abnormal LFTs. Patient currently admitted to the intensive care unit for care and management. Abdominal ultrasound noted as below Does not seem to have intra-abdominal etiology of sepsis/SIRS We will continue with work-up Continue with IV fluid resuscitation Trend labs Hold on central venous catheter placement as patient is responsive to IV fluids. If requires pressors okay to use midline for a short period of time until peripherally inserted central venous catheter placed. Local wound care as below Once stable will resume nutritional goals Thank you will follow the recommendations Gallbladder is unremarkable, without stones, wall thickening, nor pericholecystic fluid. Sonographic Gamez's sign is negative. Common bile duct measures 5 mm in diameter. No intrahepatic biliary ductal dilatation. Liver demonstrates slightly coarsened echogenicity. No focal abnormality. Portal vein and hepatic veins are patent. Pancreas is unremarkable. Spleen is unremarkable. Left kidney measures left cm in length. Right kidney measures 11.2 cm length. Both kidneys demonstrate normal echogenicity. There is mild fullness to the right renal collecting system, and very mild left hydronephrosis No focal abnormality . Non-aneurysmal abdominal aorta . There is a right hip prosthesis which throws off streak artifact which may obscure pelvic pathology. There is also some image degradation due to respiratory motion artifact in the upper abdomen. Lack of enteric contrast limits assessment of the GI tract. The rectum is distended by stool, measuring 6.7 cm in diameter. No definite wall thickening or perirectal inflammation demonstrated. Considerable dense stool is also seen elsewhere within the colon. No evidence of colonic diverticulosis or diverticulitis. The appendix is normal. No small bowel distention. There is a gastrostomy which appears to be in good position. Lack of IV contrast limits assessment of the solid organs. The liver, gallbladder, bile ducts, pancreas, spleen, adrenals are all unremarkable. There is mild fullness to the bilateral renal collecting systems and ureters. No focal renal parenchymal abnormality. No renal or ureteral calculi demonstrated. The bladder is markedly distended. It demonstrates mild wall thickening. No pelvic mass or adenopathy. The lung bases demonstrate bronchial wall thickening and basilar atelectatic changes as well as possibly some bronchiectasis on the left. There may be trace pleural fluid bilaterally. There is a small anterior wall pericardial effusion which measures up to 7 mm in thickness. The bones demonstrate a compression fracture deformity of the T11 vertebral body. This results in about 30% height loss. This is in retrospect evident also on a prior chest CT of 06/03/2019 Alexis Ruffin Aug 01, 2019 13:55
[2019-08-01] MEDS ORDERED: Tubing IV Secondary IV ONE ×2 (14:03→14:06)
[2019-08-01] MEDS ORDERED: NS Irrig 1000ml ONE (14:06)
--- NOTE | 2019-08-01 14:17 | General Progress Note ---
Assessment/Plan Status: other - critical Status Narrative 54-year-old male, senior care resident Down syndrome, diastolic CHF, hypertension,hyperlipidemia, iron deficiency anemia, hypothyroidism, GERD, aortic stenosis, bilateral foot pressure ulcers, dysphagia s/p PEG presenting with altered mental status and hypoxia being admitted with septic shock likely secondary to pneumonia and possible abdominal source given elevated LFTs, though could be due to hypotension. CT abdomen pelvis without any source for infection. #Shock likely hypovolemic and septic #Healthcare associated pneumonia IV fluid hydration. Wean levo Cardiology consult with Dr. Owen regarding BP management Continue home midodrine- d/w rn Broad spectrum antibiotics with vancomycin and meropenem per ID consult . case d /w Dr. Serrano follow up blood and sputum cultures Pulmonary consult with Dr. Luevano. case d/w AM cortisol --> 12.7 #toxic metabolic encephalopathy- improving Monitor mental status, treat sepsis #hypotonic hyponatremia- corrected continue to monitor #Abnormal LFTs #Acute Hepatitis B -right upper quadrant ultrasound- reviewed, no acute pathology -Trend LFTs - Upon reviewing the chart, on previous admission hepatitis B surface antigen, hepatitis B core total antibody and hepatitis Be antibody was positive. liver function tests were normal. Patient was referred to follow up outpatient. -GI consult -continue Lamivudine 100mg GT BID Hep B DNA>>> pending # Dysphagia, status post G-tube #GERD resume tube feeds #Down syndrome. #Diastolic CHF- not in exacerbation #hypertension- hypotensive now #hyperlipidemia # hypovolemic Hold BP meds #iron deficiency anemia H/H stable continue to monitor Anemia panel prn transfusion #hypothyroidism -Continue Synthroid, follow up TSH- normal #Bilateral wounds and pressure ulcers to the heels wound care consult with Dr. Ruffin, surgery off loading turning q2 hr VTE ppx: heparin subcutaneous. GI ppx: IV PPI Diet: tube feeds Code status, DNI, however can resuscitate disposition: Keep in ICU I spent 75 minutes on this patient's case, and 40 mins was dedicated to critical care I spent an additional 36 minutes on reviewing patient's chart from admission. This includes review of imaging, labs, notes, and interpretation of results. The time of my note may not reflect the time of my patient encounter. Critical Care Services performed include: Telemetry Review Hemodynamic measurement interpretation Laboratory data review and interpretation Radiology image review and interpretation Interpretation of ABG's Discussion of patient's care with ICU team, ICU Nursing staff and/or consulting services Subjective Allergies: Coded Allergies: KETAMINE (Verified Allergy, Unknown, 05/29/19) NSAIDS (NON-STEROIDAL ANTI-INFLAMMA (Verified Allergy, Unknown, 05/29/19) Objective Last 24 Hour Vital Signs Date Time Temp Pulse Resp B/P (MAP) Pulse Ox O2 Delivery O2 Flow Rate FiO2 08/01/19 12:15 57 25 106/47 (66) 98 08/01/19 12:00 97.4 55 36 87/51 (63) 97 08/01/19 12:00 85/49 08/01/19 12:00 Nasal Cannula 2.0 08/01/19 11:30 57 21 99/38 (58) 98 08/01/19 11:00 58 23 113/37 (62) 99 08/01/19 11:00 101/45 08/01/19 10:45 94/40 08/01/19 10:30 57 22 104/42 (62) 97 08/01/19 10:30 104/42 08/01/19 10:15 84/35 08/01/19 10:00 58 21 96/50 (65) 96 08/01/19 10:00 124/43 08/01/19 09:45 161/60 08/01/19 09:42 147/57 08/01/19 09:30 56 21 124/43 (70) 97 08/01/19 09:30 147/57 08/01/19 09:00 148/59 08/01/19 09:00 61 25 106/63 (77) 98 08/01/19 08:45 106/63 08/01/19 08:30 98.0 63 22 131/50 (77) 97 08/01/19 08:30 124/59 08/01/19 08:15 127/51 08/01/19 08:00 Nasal Cannula 2.0 08/01/19 08:00 108/45 08/01/19 08:00 61 22 108/45 (66) 08/01/19 08:00 68 08/01/19 07:26 97 Room Air 21 08/01/19 07:00 57 21 122/51 (74) 99 08/01/19 07:00 122/51 08/01/19 06:00 105/81 08/01/19 06:00 91 21 106/74 (85) 98 08/01/19 05:15 91 21 90/51 (64) 98 08/01/19 05:00 75 19 91/40 (57) 99 08/01/19 05:00 90/51 08/01/19 04:45 98 23 162/68 (99) 98 08/01/19 04:30 71 22 144/65 (91) 99 08/01/19 04:15 84 27 121/58 (79) 93 08/01/19 04:00 98.7 63 21 128/61 (83) 97 08/01/19 04:00 Nasal Cannula 2.0 08/01/19 04:00 121/58 08/01/19 04:00 63 08/01/19 03:45 59 22 116/49 (71) 96 08/01/19 03:30 62 21 124/48 (73) 96 08/01/19 03:15 64 23 143/53 (83) 95 08/01/19 03:09 91/70 08/01/19 03:08 91/70 08/01/19 03:06 81 21 91/70 (77) 98 08/01/19 02:04 91 23 85/47 (60) 100 08/01/19 02:00 74 24 85/31 (49) 99 08/01/19 02:00 85/47 08/01/19 01:45 60 21 122/48 (72) 98 08/01/19 01:30 57 22 128/54 (78) 97 08/01/19 01:15 57 21 105/37 (59) 98 08/01/19 01:00 107/67 08/01/19 01:00 67 23 116/45 (68) 98 08/01/19 00:50 69 25 102/43 (62) 98 08/01/19 00:45 68 21 84/40 (55) 98 08/01/19 00:30 69 20 128/39 (68) 92 08/01/19 00:15 60 19 120/38 (65) 97 08/01/19 00:00 98.5 66 22 114/44 (67) 98 08/01/19 00:00 79 08/01/19 00:00 120/38 08/01/19 00:00 Nasal Cannula 2.0 07/31/19 23:45 73 19 115/48 (70) 97 07/31/19 23:30 74 23 91/46 (61) 99 07/31/19 23:15 73 23 117/41 (66) 96 07/31/19 23:00 117/41 07/31/19 23:00 63 21 112/62 (79) 96 07/31/19 22:45 61 21 118/44 (68) 96 07/31/19 22:30 63 25 114/51 (72) 96 07/31/19 22:15 62 14 113/55 (74) 96 07/31/19 22:00 98/78 07/31/19 22:00 63 26 98/78 (85) 97 07/31/19 21:45 65 22 106/39 (61) 96 07/31/19 21:30 72 24 125/40 (68) 97 07/31/19 21:15 65 28 138/34 (68) 95 07/31/19 21:00 128/44 07/31/19 21:00 98.9 65 28 128/44 (72) 96 07/31/19 20:47 99.9 07/31/19 20:45 99.9 70 27 134/64 (87) 96 07/31/19 20:30 80 21 103/51 (68) 96 07/31/19 20:15 72 28 123/48 (73) 96 07/31/19 20:00 123/48 07/31/19 20:00 Nasal Cannula 2.0 07/31/19 20:00 91 30 113/56 (75) 95 07/31/19 19:45 101.2 80 32 113/57 (75) 95 07/31/19 19:30 104 07/31/19 19:30 80 37 155/55 (88) 97 07/31/19 19:15 86 22 132/62 (85) 98 07/31/19 19:14 87 19 100 Room Air 21 07/31/19 19:14 100 Room Air 21 07/31/19 19:00 112/57 07/31/19 19:00 142/57 07/31/19 19:00 94 25 112/57 (75) 93 07/31/19 18:59 64/31 07/31/19 18:45 92 25 64/31 (42) 94 07/31/19 18:30 109 32 142/46 (78) 93 07/31/19 18:00 79 24 117/52 (73) 92 07/31/19 18:00 94/76 07/31/19 18:00 77 37 82/47 (59) 93 07/31/19 17:30 101 25 94/76 (82) 93 07/31/19 17:00 65/49 07/31/19 17:00 98 35 82/47 (59) 93 07/31/19 16:00 Nasal Cannula 2.0 07/31/19 16:00 98.8 90 31 137/60 (85) 93 07/31/19 16:00 89/46 07/31/19 16:00 85 07/31/19 15:30 71 26 132/45 (74) 93 07/31/19 15:00 82 30 131/58 (82) 93 07/31/19 15:00 132/45 07/31/19 14:30 89 26 118/62 (80) 93 Intake and Output 07/31/19 08/01/19 19:00 07:00 Intake Total 2563.865 ml 3330.000 ml Output Total 1775 ml 2720 ml Balance 788.865 ml 610.000 ml Intake Free Water 200 ml IV Total 1803.865 ml 2355.000 ml Tube Feeding 660 ml 715 ml Other 100 ml 60 ml Output Urine Total 1775 ml 2720 ml Laboratory Tests 08/01/19 04:33: White Blood Count 6.3, Red Blood Count 4.28L, Hemoglobin 13.2L, Hematocrit 40.1L , Mean Corpuscular Volume 94, Mean Corpuscular Hemoglobin 30.9, Mean Corpuscular Hemoglobin Concent 33.0, Red Cell Distribution Width 14.2, Platelet Count 348, Mean Platelet Volume 5.6L, Neutrophils (%) (Auto) 57.6, Lymphocytes ( %) (Auto) 32.4, Monocytes (%) (Auto) 7.5, Eosinophils (%) (Auto) 1.3, Basophils (%) (Auto) 1.2, Sodium Level 135L, Potassium Level 4.0#, Chloride Level 103, Carbon Dioxide Level 28, Anion Gap 4L, Blood Urea Nitrogen 13, Creatinine 0.6, Estimat Glomerular Filtration Rate > 60, Glucose Level 127H, Calcium Level 7.7L , Magnesium Level 2.3, Total Bilirubin 0.8, Aspartate Amino Transf (AST/SGOT) 218H, Alanine Aminotransferase (ALT/SGPT) 527H, Alkaline Phosphatase 175H, Total Protein 8.0, Albumin 2.2L, Globulin 5.8, Albumin/Globulin Ratio 0.4L 08/01/19 08:05: Vancomycin Level Trough 20.4H Height (Feet): 5 Height (Inches): 4.00 Weight (Pounds): 129 Shreya Fontanez DO Aug 01, 2019 14:17
[2019-08-01] MEDS: Miralax 17gm pkt ORAL SCH (20:40)
[2019-08-01] MEDS: Dyna-Hex 2% Top Sol 2oz TOPIC SCH (20:40)
--- NOTE | 2019-08-01 20:44 | Pulmonolgy Critical Care Note ---
Critical Care - Asmt/Plan Assessment/Plan: (1) Severe sepsis (2) Septic shock (3) Ulcer of right heel (4) Acute and chronic respiratory failure with hypoxia (5) CHF (congestive heart failure) (6) Iron deficiency anemia (7) GERD (gastroesophageal reflux disease) (8) HTN (hypertension) (9) Hypothyroid (10) HLD (hyperlipidemia) (11) Down's syndrome (12) Aortic stenosis (13) Acute on chronic respiratory failure with hypoxia and hypercapnia PLAN monitor respiratory rate, CXR, other - PRN HHN's continue pressors - Titrate DA to MAP > 60, continue MIDODRINE keep IV fluid, check electrolytes continue antibiotics - KARISHMA/VANCO continue feedings/current rate monitor blood sugar monitor H/H Heparin Disposition: keep in ICU Time Spent (Minutes): other - 35 Discussed with: nurses, consultants, other - DNAR/DNI Critical Care - Objective Last 24 Hour Vital Signs Date Time Temp Pulse Resp B/P (MAP) Pulse Ox O2 Delivery O2 Flow Rate FiO2 08/01/19 20:00 Nasal Cannula 2.0 08/01/19 20:00 98.0 51 20 105/42 (63) 98 08/01/19 19:45 65 29 100/54 (69) 99 08/01/19 19:30 69 27 86/48 (61) 98 08/01/19 19:15 52 24 115/39 (64) 98 08/01/19 19:00 57 22 117/41 (66) 97 08/01/19 19:00 115/39 08/01/19 18:30 63 24 118/52 (74) 98 08/01/19 18:00 52 26 126/45 (72) 97 08/01/19 18:00 126/45 08/01/19 17:30 65 26 117/51 (73) 97 08/01/19 17:00 59 26 110/60 (77) 97 08/01/19 17:00 110/60 08/01/19 16:30 97.3 61 29 116/52 (73) 97 08/01/19 16:00 56 29 109/50 (69) 94 08/01/19 16:00 109/50 08/01/19 16:00 88 08/01/19 16:00 Nasal Cannula 2.0 08/01/19 15:30 65 31 107/42 (63) 96 08/01/19 15:00 64 32 100/47 (64) 95 08/01/19 15:00 110/52 08/01/19 14:30 61 29 129/54 (79) 98 08/01/19 14:15 129/54 08/01/19 14:00 52 24 126/58 (80) 97 08/01/19 14:00 121/55 08/01/19 13:45 126/58 08/01/19 13:30 59 32 132/57 (82) 99 08/01/19 13:30 132/57 08/01/19 13:00 56 19 158/62 (94) 98 08/01/19 13:00 141/54 08/01/19 12:45 130/60 08/01/19 12:30 120/74 08/01/19 12:30 58 25 120/74 (89) 98 08/01/19 12:15 57 25 106/47 (66) 98 08/01/19 12:15 120/74 08/01/19 12:00 97.4 55 36 87/51 (63) 97 08/01/19 12:00 98 08/01/19 12:00 85/49 08/01/19 12:00 Nasal Cannula 2.0 08/01/19 11:30 57 21 99/38 (58) 98 08/01/19 11:00 58 23 113/37 (62) 99 08/01/19 11:00 101/45 08/01/19 10:45 94/40 08/01/19 10:30 57 22 104/42 (62) 97 08/01/19 10:30 104/42 08/01/19 10:15 84/35 08/01/19 10:00 58 21 96/50 (65) 96 08/01/19 10:00 124/43 08/01/19 09:45 161/60 08/01/19 09:42 147/57 08/01/19 09:30 56 21 124/43 (70) 97 08/01/19 09:30 147/57 08/01/19 09:00 148/59 08/01/19 09:00 61 25 106/63 (77) 98 08/01/19 08:45 106/63 08/01/19 08:30 98.0 63 22 131/50 (77) 97 08/01/19 08:30 124/59 08/01/19 08:15 127/51 08/01/19 08:00 Nasal Cannula 2.0 08/01/19 08:00 108/45 08/01/19 08:00 61 22 108/45 (66) 08/01/19 08:00 68 08/01/19 07:26 97 Room Air 21 08/01/19 07:00 57 21 122/51 (74) 99 08/01/19 07:00 122/51 08/01/19 06:00 105/81 08/01/19 06:00 91 21 106/74 (85) 98 08/01/19 05:15 91 21 90/51 (64) 98 08/01/19 05:00 75 19 91/40 (57) 99 08/01/19 05:00 90/51 08/01/19 04:45 98 23 162/68 (99) 98 08/01/19 04:30 71 22 144/65 (91) 99 08/01/19 04:15 84 27 121/58 (79) 93 08/01/19 04:00 98.7 63 21 128/61 (83) 97 08/01/19 04:00 Nasal Cannula 2.0 08/01/19 04:00 121/58 08/01/19 04:00 63 08/01/19 03:45 59 22 116/49 (71) 96 08/01/19 03:30 62 21 124/48 (73) 96 08/01/19 03:15 64 23 143/53 (83) 95 08/01/19 03:09 91/70 08/01/19 03:08 91/70 08/01/19 03:06 81 21 91/70 (77) 98 08/01/19 02:04 91 23 85/47 (60) 100 08/01/19 02:00 74 24 85/31 (49) 99 08/01/19 02:00 85/47 08/01/19 01:45 60 21 122/48 (72) 98 08/01/19 01:30 57 22 128/54 (78) 97 08/01/19 01:15 57 21 105/37 (59) 98 08/01/19 01:00 107/67 08/01/19 01:00 67 23 116/45 (68) 98 08/01/19 00:50 69 25 102/43 (62) 98 08/01/19 00:45 68 21 84/40 (55) 98 08/01/19 00:30 69 20 128/39 (68) 92 08/01/19 00:15 60 19 120/38 (65) 97 08/01/19 00:00 98.5 66 22 114/44 (67) 98 08/01/19 00:00 79 08/01/19 00:00 120/38 08/01/19 00:00 Nasal Cannula 2.0 07/31/19 23:45 73 19 115/48 (70) 97 07/31/19 23:30 74 23 91/46 (61) 99 07/31/19 23:15 73 23 117/41 (66) 96 07/31/19 23:00 117/41 07/31/19 23:00 63 21 112/62 (79) 96 07/31/19 22:45 61 21 118/44 (68) 96 07/31/19 22:30 63 25 114/51 (72) 96 07/31/19 22:15 62 14 113/55 (74) 96 07/31/19 22:00 98/78 07/31/19 22:00 63 26 98/78 (85) 97 07/31/19 21:45 65 22 106/39 (61) 96 07/31/19 21:30 72 24 125/40 (68) 97 07/31/19 21:15 65 28 138/34 (68) 95 07/31/19 21:00 128/44 07/31/19 21:00 98.9 65 28 128/44 (72) 96 07/31/19 20:47 99.9 07/31/19 20:45 99.9 70 27 134/64 (87) 96 Status: awake Lungs: rhonchi Heart: HR/BP stable Abdomen: soft, non-tender Extremities: edema Critical Care - Subjective ROS Limited/Unobtainable: Yes Condition: improving FI02: 21 Sputum Amount: None Tube Feeding Amount: 0 I&O: Intake and Output 07/31/19 08/01/19 18:59 06:59 Intake Total 2559.60 ml 3314.965 ml Output Total 1675 ml 2595 ml Balance 884.60 ml 719.965 ml Intake Free Water 200 ml IV Total 1799.60 ml 2339.965 ml Tube Feeding 660 ml 715 ml Other 100 ml 60 ml Output Urine Total 1675 ml 2595 ml Subjective: eyes open nonverbal on o2 no distress no nv or diarrhea reported CXR: l;ast cxr 07/30 Labs: Current Medications Medications (Trade) Dose Ordered Sig/Kendra Route PRN Reason Start Time Stop Time Status Last Admin Dose Admin Acetaminophen (Tylenol) 650 mg Q4H PRN ORAL Mild Pain (Pain Scale 1-3) 07/28/19 12:15 08/27/19 12:14 07/31/19 20:17 Acetaminophen (Tylenol) 650 mg Q4H PRN ORAL fever 07/28/19 12:15 08/27/19 12:14 Albuterol/ Ipratropium (Albuterol/ Ipratropium) 3 ml Q4H PRN HHN Shortness of Breath 07/28/19 12:15 08/02/19 12:14 Chlorhexidine Gluconate (Judi-Hex 2%) 1 applic DAILY@1999 TOPIC 07/30/19 20:00 08/29/19 19:59 07/31/19 20:15 Dextrose (Dextrose 50%) 25 ml Q30M PRN IV Hypoglycemia 07/28/19 12:15 08/27/19 12:14 Dextrose (Dextrose 50%) 50 ml Q30M PRN IV Hypoglycemia 07/28/19 12:15 08/27/19 12:14 Docusate Sodium (Colace) 100 mg BID GT 08/01/19 09:00 08/31/19 08:59 08/01/19 17:34 Heparin Sodium (Porcine) (Heparin 5000 units/ml) 5,000 units EVERY 12 HOURS SUBQ 07/28/19 21:00 08/27/19 20:59 08/01/19 08:49 Hydromorphone HCl (Dilaudid) 1 mg Q4H PRN IVP Moderate Pain (Pain Scale 4-6) 07/28/19 12:15 08/04/19 12:14 Hydromorphone HCl (Dilaudid) 2 mg Q4H PRN IVP Severe Pain (Pain Scale 7-10) 07/28/19 12:15 08/04/19 12:14 Levothyroxine Sodium (Synthroid) 50 mcg DAILY@0630 ORAL 07/30/19 06:30 08/29/19 06:29 08/01/19 06:40 Meropenem 1 gm/ Sodium Chloride 100 ml @ 200 mls/hr Q8H IVPB 07/31/19 20:00 08/05/19 19:59 08/01/19 12:20 Midodrine (Pro-Amatine) 5 mg THREE TIMES A DAY ORAL 07/30/19 13:00 08/29/19 12:59 08/01/19 17:34 Norepinephrine Bitartrate 4 mg/ Dextrose 250 ml @ 0 mls/hr Q24H IV 07/31/19 18:00 08/30/19 17:59 08/01/19 09:42 Polyethylene Glycol (Miralax) 17 gm BEDTIME ORAL 08/01/19 21:00 08/31/19 20:59 Sodium Chloride 1,000 ml @ 125 mls/hr Q8H IV 07/29/19 09:00 08/28/19 08:59 08/01/19 17:34 Vancomycin HCl (Vanco rx to dose) 1 ea DAILY PRN MISC Per rx protocol 07/28/19 12:00 08/27/19 11:59 Vancomycin HCl 750 mg/Dextrose 275 ml @ 183.333 mls/hr Q12H IVPB 08/01/19 14:00 08/06/19 13:59 08/01/19 13:30 Laboratory Tests Test 08/01/19 04:33 08/01/19 08:05 White Blood Count 6.3 K/UL (4.8-10.8) Red Blood Count 4.28 M/UL (4.70-6.10) L Hemoglobin 13.2 G/DL (14.2-18.0) L Hematocrit 40.1 % (42.0-52.0) L Mean Corpuscular Volume 94 FL (80-99) Mean Corpuscular Hemoglobin 30.9 PG (27.0-31.0) Mean Corpuscular Hemoglobin Concent 33.0 G/DL (32.0-36.0) Red Cell Distribution Width 14.2 % (11.6-14.8) Platelet Count 348 K/UL (150-450) Mean Platelet Volume 5.6 FL (6.5-10.1) L Neutrophils (%) (Auto) 57.6 % (45.0-75.0) Lymphocytes (%) (Auto) 32.4 % (20.0-45.0) Monocytes (%) (Auto) 7.5 % (1.0-10.0) Eosinophils (%) (Auto) 1.3 % (0.0-3.0) Basophils (%) (Auto) 1.2 % (0.0-2.0) Sodium Level 135 MMOL/L (136-145) L Potassium Level 4.0 MMOL/L (3.5-5.1) # Chloride Level 103 MMOL/L (98-107) Carbon Dioxide Level 28 MMOL/L (21-32) Anion Gap 4 mmol/L (5-15) L Blood Urea Nitrogen 13 mg/dL (7-18) Creatinine 0.6 MG/DL (0.55-1.30) Estimat Glomerular Filtration Rate > 60 mL/min (>60) Glucose Level 127 MG/DL (74-106) H Calcium Level 7.7 MG/DL (8.5-10.1) L Magnesium Level 2.3 MG/DL (1.8-2.4) Total Bilirubin 0.8 MG/DL (0.2-1.0) Aspartate Amino Transf (AST/SGOT) 218 U/L (15-37) H Alanine Aminotransferase (ALT/SGPT) 527 U/L (12-78) H Alkaline Phosphatase 175 U/L (46-116) H Total Protein 8.0 G/DL (6.4-8.2) Albumin 2.2 G/DL (3.4-5.0) L Globulin 5.8 g/dL Albumin/Globulin Ratio 0.4 (1.0-2.7) L Vancomycin Level Trough 20.4 ug/mL (5.0-12.0) H Letitia Fan DO Aug 01, 2019 20:44
[2019-08-02] VITALS (63 sets, daily range): BP systolic 90–148; BP diastolic 38–83
[2019-08-02] MEDS: Vancomycin 750mg/D5W 275ml IVPB SCH ×4 (02:05→13:12)
[2019-08-02 07:02] LABS: BASOPHILS % (AUTO) 1.2 % (0.0-2.0); EOSINOPHILS % (AUTO) 3.7 % (0.0-3.0); HEMATOCRIT 43.1 % (42.0-52.0); HEMOGLOBIN 14.2 G/DL (14.2-18.0); LYMPHOCYTES % (AUTO) 28.7 % (20.0-45.0); MEAN CORPUSCULAR VOLUME 95 FL (80-99); MONOCYTES % (AUTO) 7.2 % (1.0-10.0); NEUTROPHILS % (AUTO) 59.2 % (45.0-75.0); PLATELET COUNT 367 K/UL (150-450); RED BLOOD COUNT 4.56 M/UL (4.70-6.10); RED CELL DISTRIBUTION WIDTH 14.6 % (11.6-14.8); WHITE BLOOD COUNT 6.9 K/UL (4.8-10.8)
[2019-08-02 07:19] LABS: ALANINE AMINOTRANSFERASE 709 U/L (12-78); ALBUMIN 2.2 G/DL (3.4-5.0); ALBUMIN/GLOBULIN RATIO 0.4 (1.0-2.7); ALKALINE PHOSPHATASE 123 U/L (46-116); ANION GAP 6 mmol/L (5-15); ASPARTATE AMINO TRANSFERASE 451 U/L (15-37); BILIRUBIN,TOTAL 1.3 MG/DL (0.2-1.0); BLOOD UREA NITROGEN 8 mg/dL (7-18); CALCIUM 7.8 MG/DL (8.5-10.1); CARBON DIOXIDE 27 MMOL/L (21-32); CHLORIDE 104 MMOL/L (98-107); CREATININE 0.7 MG/DL (0.55-1.30); POTASSIUM 3.8 MMOL/L (3.5-5.1); SODIUM 137 MMOL/L (136-145)
[2019-08-02 07:20] LABS: BILIRUBIN,DIRECT 0.7 MG/DL (0.0-0.3)
--- NOTE | 2019-08-02 07:59 | General Progress Note ---
Assessment/Plan Status: other - critical Assessment/Plan: GI: Plan Problems: (1) Hepatitis B (2) Iron deficiency anemia (3) GERD (gastroesophageal reflux disease) (4) Down's syndrome (constipation) Plan rising LFTs 2/2 to Hepatitis B GT dependent constipation start patient on Lamivudine 100mg GT BID >> discussed with pharmacist, non- formulary will need script for outpatient treatment Hep B DNA>>> pending GTF anemia panel prn transfusions PPI repeat liver function tests colace and mirakax lactulose mineral oil per GT abd us Subjective ROS Limited/Unobtainable: No Allergies: Coded Allergies: KETAMINE (Verified Allergy, Unknown, 05/29/19) NSAIDS (NON-STEROIDAL ANTI-INFLAMMA (Verified Allergy, Unknown, 05/29/19) Objective Last 24 Hour Vital Signs Date Time Temp Pulse Resp B/P (MAP) Pulse Ox O2 Delivery O2 Flow Rate FiO2 08/02/19 07:22 90/41 08/02/19 07:15 93 20 90/41 (57) 96 08/02/19 07:00 108/41 08/02/19 07:00 59 22 108/41 (63) 97 08/02/19 06:45 73 25 92/52 (65) 97 08/02/19 06:30 65 21 111/43 (65) 98 08/02/19 06:00 111/51 08/02/19 06:00 69 23 111/51 (71) 97 08/02/19 05:45 69 25 125/54 (77) 95 08/02/19 05:30 78 22 132/50 (77) 96 08/02/19 05:15 67 24 124/56 (78) 96 08/02/19 05:00 77 26 119/57 (77) 97 08/02/19 05:00 119/57 08/02/19 04:00 72 08/02/19 04:00 108/53 08/02/19 04:00 Nasal Cannula 2.0 08/02/19 04:00 98.2 74 19 108/53 (71) 96 08/02/19 03:30 68 26 124/54 (77) 97 08/02/19 03:04 77 21 96/46 (63) 97 08/02/19 03:00 96/46 08/02/19 02:45 70 21 110/48 (68) 97 08/02/19 02:30 65 31 122/41 (68) 98 08/02/19 02:05 72/48 08/02/19 02:00 63 25 118/51 (73) 96 08/02/19 01:45 63 26 124/55 (78) 96 08/02/19 01:30 66 26 140/49 (79) 97 08/02/19 01:15 60 28 128/45 (72) 96 08/02/19 01:00 65 24 123/57 (79) 96 08/02/19 01:00 128/45 08/02/19 00:45 59 23 143/47 (79) 96 08/02/19 00:30 66 19 129/59 (82) 96 08/02/19 00:15 56 28 135/59 (84) 97 08/02/19 00:00 98.0 57 22 144/52 (82) 98 08/02/19 00:00 144/52 08/02/19 00:00 60 08/02/19 00:00 Nasal Cannula 2.0 08/01/19 23:53 72/31 08/01/19 23:52 72/31 08/01/19 23:51 70 22 72/31 (45) 98 08/01/19 23:45 61 21 76/24 (41) 98 08/01/19 23:30 57 21 112/41 (64) 97 08/01/19 23:15 59 24 111/44 (66) 96 08/01/19 23:00 58 24 127/66 (86) 97 08/01/19 23:00 127/66 08/01/19 22:45 59 25 113/46 (68) 97 08/01/19 22:30 60 25 119/48 (71) 97 08/01/19 22:15 66 24 88/38 (55) 97 08/01/19 22:08 62 24 97/39 (58) 97 08/01/19 22:00 81/39 08/01/19 22:00 61 24 81/39 (53) 96 08/01/19 21:45 51 21 106/34 (58) 96 08/01/19 21:30 63 24 102/41 (61) 97 08/01/19 21:15 60 25 108/34 (58) 99 08/01/19 21:00 102/43 12/14/19 21:00 63 22 102/43 (62) 96 08/01/19 20:45 54 21 97 Nasal Cannula 3.0 32 08/01/19 20:45 67 24 107/43 (64) 97 08/01/19 20:45 97 Nasal Cannula 3.0 32 08/01/19 20:30 67 27 109/44 (65) 99 08/01/19 20:15 61 27 113/39 (63) 99 08/01/19 20:00 Nasal Cannula 2.0 08/01/19 20:00 105/42 08/01/19 20:00 98.0 51 20 105/42 (63) 98 08/01/19 20:00 62 08/01/19 19:45 65 29 100/54 (69) 99 08/01/19 19:30 69 27 86/48 (61) 98 08/01/19 19:15 52 24 115/39 (64) 98 08/01/19 19:00 57 22 117/41 (66) 97 08/01/19 19:00 115/39 08/01/19 18:30 63 24 118/52 (74) 98 08/01/19 18:00 52 26 126/45 (72) 97 08/01/19 18:00 126/45 08/01/19 17:30 65 26 117/51 (73) 97 08/01/19 17:00 59 26 110/60 (77) 97 08/01/19 17:00 110/60 08/01/19 16:30 97.3 61 29 116/52 (73) 97 08/01/19 16:00 56 29 109/50 (69) 94 08/01/19 16:00 109/50 08/01/19 16:00 88 08/01/19 16:00 Nasal Cannula 2.0 08/01/19 15:30 65 31 107/42 (63) 96 08/01/19 15:00 64 32 100/47 (64) 95 08/01/19 15:00 110/52 08/01/19 14:30 61 29 129/54 (79) 98 19 14:15 129/54 08/01/19 14:00 52 24 126/58 (80) 97 08/01/19 14:00 121/55 08/01/19 13:45 126/58 08/01/19 13:30 59 32 132/57 (82) 99 08/01/19 13:30 132/57 08/01/19 13:00 56 19 158/62 (94) 98 08/01/19 13:00 141/54 08/01/19 12:45 130/60 08/01/19 12:30 120/74 08/01/19 12:30 58 25 120/74 (89) 98 08/01/19 12:15 57 25 106/47 (66) 98 08/01/19 12:15 120/74 08/01/19 12:00 97.4 55 36 87/51 (63) 97 08/01/19 12:00 98 08/01/19 12:00 85/49 08/01/19 12:00 Nasal Cannula 2.0 08/01/19 11:30 57 21 99/38 (58) 98 08/01/19 11:00 58 23 113/37 (62) 99 08/01/19 11:00 101/45 08/01/19 10:45 94/40 08/01/19 10:30 57 22 104/42 (62) 97 08/01/19 10:30 104/42 08/01/19 10:15 84/35 08/01/19 10:00 58 21 96/50 (65) 96 08/01/19 10:00 124/43 08/01/19 09:45 161/60 08/01/19 09:42 147/57 08/01/19 09:30 56 21 124/43 (70) 97 08/01/19 09:30 147/57 08/01/19 09:00 148/59 08/01/19 09:00 61 25 106/63 (77) 98 08/01/19 08:45 106/63 08/01/19 08:30 98.0 63 22 131/50 (77) 97 08/01/19 08:30 124/59 08/01/19 08:15 127/51 08/01/19 08:00 Nasal Cannula 2.0 08/01/19 08:00 108/45 08/01/19 08:00 61 22 108/45 (66) 08/01/19 08:00 68 Intake and Output 08/01/19 08/02/19 19:00 07:00 Intake Total 1874.785 ml 2385.500 ml Output Total 2095 ml 2395 ml Balance -220.215 ml -9.500 ml IV Total 1874.785 ml 2265.500 ml Tube Feeding 0 ml 0 ml Other 120 ml Output Urine Total 2095 ml 2395 ml Laboratory Tests 08/01/19 08:05: Vancomycin Level Trough 20.4H 08/02/19 05:53: White Blood Count 6.9, Red Blood Count 4.56L, Hemoglobin 14.2, Hematocrit 43.1, Mean Corpuscular Volume 95, Mean Corpuscular Hemoglobin 31.1H, Mean Corpuscular Hemoglobin Concent 32.9, Red Cell Distribution Width 14.6, Platelet Count 367, Mean Platelet Volume 6.1L, Neutrophils (%) (Auto) 59.2, Lymphocytes (%) (Auto) 28.7, Monocytes (%) (Auto) 7.2, Eosinophils (%) (Auto) 3.7H, Basophils (%) (Auto ) 1.2, Sodium Level 137, Potassium Level 3.8, Chloride Level 104, Carbon Dioxide Level 27, Anion Gap 6, Blood Urea Nitrogen 8, Creatinine 0.7, Estimat Glomerular Filtration Rate > 60, Glucose Level 123H, Calcium Level 7.8L, Total Bilirubin 1.3H, Direct Bilirubin 0.7H, Aspartate Amino Transf (AST/SGOT) 451H, Alanine Aminotransferase (ALT/SGPT) 709H, Alkaline Phosphatase 123H, Total Protein 7.8, Albumin 2.2L, Globulin 5.6, Albumin/Globulin Ratio 0.4L Height (Feet): 5 Height (Inches): 4.00 Weight (Pounds): 113 General Appearance: lethargic EENT: normal ENT inspection Neck: supple Cardiovascular: normal rate Respiratory/Chest: decreased breath sounds Abdomen: normal bowel sounds, non tender, soft Extremities: non-tender Lewis Rubio MD Aug 02, 2019 07:59
[2019-08-02] MEDS ORDERED: Mineral Oil 30ml ud ORAL PRN (08:00)
--- NOTE | 2019-08-02 08:10 | Pulmonolgy Critical Care Note ---
Critical Care - Asmt/Plan Assessment/Plan: (1) Severe sepsis (2) Septic shock (3) Ulcer of right heel (4) Acute and chronic respiratory failure with hypoxia (5) CHF (congestive heart failure) (6) Iron deficiency anemia (7) GERD (gastroesophageal reflux disease) (8) HTN (hypertension) (9) Hypothyroid (10) HLD (hyperlipidemia) (11) Down's syndrome (12) Aortic stenosis (13) Acute on chronic respiratory failure with hypoxia and hypercapnia (14) sputum positive MRSA PLAN monitor respiratory rate, CXR, other - PRN HHN's continue pressors - Titrate DA to MAP > 60, continue MIDODRINE keep IV fluid, check electrolytes continue antibiotics - KARISHMA/VANCO per iD continue feedings/current rate monitor blood sugar monitor H/H CXR saturday Heparin Disposition: keep in ICU Time Spent (Minutes): other - 35 Discussed with: nurses, consultants, other - DNAR/DNI Critical Care - Objective Last 24 Hour Vital Signs Date Time Temp Pulse Resp B/P (MAP) Pulse Ox O2 Delivery O2 Flow Rate FiO2 08/02/19 07:22 90/41 08/02/19 07:15 93 20 90/41 (57) 96 08/02/19 07:00 108/41 08/02/19 07:00 59 22 108/41 (63) 97 08/02/19 06:45 73 25 92/52 (65) 97 08/02/19 06:30 65 21 111/43 (65) 98 08/02/19 06:00 111/51 08/02/19 06:00 69 23 111/51 (71) 97 08/02/19 05:45 69 25 125/54 (77) 95 08/02/19 05:30 78 22 132/50 (77) 96 08/02/19 05:15 67 24 124/56 (78) 96 08/02/19 05:00 77 26 119/57 (77) 97 08/02/19 05:00 119/57 08/02/19 04:00 72 08/02/19 04:00 108/53 08/02/19 04:00 Nasal Cannula 2.0 08/02/19 04:00 98.2 74 19 108/53 (71) 96 08/02/19 03:30 68 26 124/54 (77) 97 08/02/19 03:04 77 21 96/46 (63) 97 08/02/19 03:00 96/46 08/02/19 02:45 70 21 110/48 (68) 97 08/02/19 02:30 65 31 122/41 (68) 98 08/02/19 02:05 72/48 08/02/19 02:00 63 25 118/51 (73) 96 08/02/19 01:45 63 26 124/55 (78) 96 08/02/19 01:30 66 26 140/49 (79) 97 08/02/19 01:15 60 28 128/45 (72) 96 08/02/19 01:00 65 24 123/57 (79) 96 08/02/19 01:00 128/45 08/02/19 00:45 59 23 143/47 (79) 96 08/02/19 00:30 66 19 129/59 (82) 96 08/02/19 00:15 56 28 135/59 (84) 97 08/02/19 00:00 98.0 57 22 144/52 (82) 98 08/02/19 00:00 144/52 08/02/19 00:00 60 08/02/19 00:00 Nasal Cannula 2.0 08/01/19 23:53 72/31 08/01/19 23:52 72/31 08/01/19 23:51 70 22 72/31 (45) 98 08/01/19 23:45 61 21 76/24 (41) 98 08/01/19 23:30 57 21 112/41 (64) 97 08/01/19 23:15 59 24 111/44 (66) 96 08/01/19 23:00 58 24 127/66 (86) 97 08/01/19 23:00 127/66 08/01/19 22:45 59 25 113/46 (68) 97 08/01/19 22:30 60 25 119/48 (71) 97 08/01/19 22:15 66 24 88/38 (55) 97 08/01/19 22:08 62 24 97/39 (58) 97 08/01/19 22:00 81/39 08/01/19 22:00 61 24 81/39 (53) 96 08/01/19 21:45 51 21 106/34 (58) 96 08/01/19 21:30 63 24 102/41 (61) 97 08/01/19 21:15 60 25 108/34 (58) 99 08/01/19 21:00 102/43 08/01/19 21:00 63 22 102/43 (62) 96 08/01/19 20:45 54 21 97 Nasal Cannula 3.0 32 08/01/19 20:45 67 24 107/43 (64) 97 08/01/19 20:45 97 Nasal Cannula 3.0 32 08/01/19 20:30 67 27 109/44 (65) 99 08/01/19 20:15 61 27 113/39 (63) 99 08/01/19 20:00 Nasal Cannula 2.0 08/01/19 20:00 105/42 08/01/19 20:00 98.0 51 20 105/42 (63) 98 08/01/19 20:00 62 08/01/19 19:45 65 29 100/54 (69) 99 08/01/19 19:30 69 27 86/48 (61) 98 08/01/19 19:15 52 24 115/39 (64) 98 08/01/19 19:00 57 22 117/41 (66) 97 08/01/19 19:00 115/39 08/01/19 18:30 63 24 118/52 (74) 98 08/01/19 18:00 52 26 126/45 (72) 97 08/01/19 18:00 126/45 08/01/19 17:30 65 26 117/51 (73) 97 08/01/19 17:00 59 26 110/60 (77) 97 08/01/19 17:00 110/60 08/01/19 16:30 97.3 61 29 116/52 (73) 97 08/01/19 16:00 56 29 109/50 (69) 94 08/01/19 16:00 109/50 08/01/19 16:00 88 08/01/19 16:00 Nasal Cannula 2.0 08/01/19 15:30 65 31 107/42 (63) 96 08/01/19 15:00 64 32 100/47 (64) 95 08/01/19 15:00 110/52 08/01/19 14:30 61 29 129/54 (79) 98 08/01/19 14:15 129/54 08/01/19 14:00 52 24 126/58 (80) 97 08/01/19 14:00 121/55 08/01/19 13:45 126/58 08/01/19 13:30 59 32 132/57 (82) 99 08/01/19 13:30 132/57 08/01/19 13:00 56 19 158/62 (94) 98 08/01/19 13:00 141/54 08/01/19 12:45 130/60 08/01/19 12:30 120/74 08/01/19 12:30 58 25 120/74 (89) 98 08/01/19 12:15 57 25 106/47 (66) 98 08/01/19 12:15 120/74 08/01/19 12:00 97.4 55 36 87/51 (63) 97 08/01/19 12:00 98 08/01/19 12:00 85/49 08/01/19 12:00 Nasal Cannula 2.0 08/01/19 11:30 57 21 99/38 (58) 98 08/01/19 11:00 58 23 113/37 (62) 99 08/01/19 11:00 101/45 08/01/19 10:45 94/40 08/01/19 10:30 57 22 104/42 (62) 97 08/01/19 10:30 104/42 08/01/19 10:15 84/35 08/01/19 10:00 58 21 96/50 (65) 96 08/01/19 10:00 124/43 08/01/19 09:45 161/60 08/01/19 09:42 147/57 08/01/19 09:30 56 21 124/43 (70) 97 08/01/19 09:30 147/57 08/01/19 09:00 148/59 08/01/19 09:00 61 25 106/63 (77) 98 08/01/19 08:45 106/63 08/01/19 08:30 98.0 63 22 131/50 (77) 97 08/01/19 08:30 124/59 08/01/19 08:15 127/51 Status: awake Condition: improving Lungs: rhonchi Heart: HR/BP stable Abdomen: soft, non-tender Extremities: edema Critical Care - Subjective ROS Limited/Unobtainable: Yes Condition: improving EKG Rhythm: Sinus Rhythm FI02: 32 Sputum Amount: None Tube Feeding Amount: 0 I&O: Intake and Output 08/01/19 08/02/19 19:00 07:00 Intake Total 1874.785 ml 2385.500 ml Output Total 2095 ml 2395 ml Balance -220.215 ml -9.500 ml IV Total 1874.785 ml 2265.500 ml Tube Feeding 0 ml 0 ml Other 120 ml Output Urine Total 2095 ml 2395 ml Subjective: eyes open nonverbal slightly aggressive at times on o2 no distress no nv or diarrhea reported Labs: Current Medications Medications (Trade) Dose Ordered Sig/Kendra Route PRN Reason Start Time Stop Time Status Last Admin Dose Admin Acetaminophen (Tylenol) 650 mg Q4H PRN ORAL Mild Pain (Pain Scale 1-3) 07/28/19 12:15 08/27/19 12:14 07/31/19 20:17 Acetaminophen (Tylenol) 650 mg Q4H PRN ORAL fever 07/28/19 12:15 08/27/19 12:14 Chlorhexidine Gluconate (Judi-Hex 2%) 1 applic DAILY@2000 TOPIC 07/30/19 20:00 08/29/19 19:59 08/02/19 20:52 Dextrose (Dextrose 50%) 25 ml Q30M PRN IV Hypoglycemia 07/28/19 12:15 08/27/19 12:14 Dextrose (Dextrose 50%) 50 ml Q30M PRN IV Hypoglycemia 07/28/19 12:15 08/27/19 12:14 Docusate Sodium (Colace) 100 mg BID GT 08/01/19 09:00 08/31/19 08:59 08/02/19 17:52 Heparin Sodium (Porcine) (Heparin 5000 units/ml) 5,000 units EVERY 12 HOURS SUBQ 07/28/19 21:00 08/27/19 20:59 08/02/19 20:55 Hydromorphone HCl (Dilaudid) 1 mg Q4H PRN IVP Moderate Pain (Pain Scale 4-6) 07/28/19 12:15 08/04/19 12:14 Hydromorphone HCl (Dilaudid) 2 mg Q4H PRN IVP Severe Pain (Pain Scale 7-10) 07/28/19 12:15 08/04/19 12:14 Lactulose (Cephulac) 20 gm THREE TIMES A DAY GT 08/02/19 09:00 09/01/19 08:59 08/02/19 17:52 Levothyroxine Sodium (Synthroid) 50 mcg DAILY@0630 ORAL 07/30/19 06:30 08/29/19 06:29 08/02/19 05:58 Linezolid 300 ml @ 300 mls/hr Q12HR IVPB 08/02/19 17:00 08/09/19 16:59 08/02/19 16:26 Midodrine (Pro-Amatine) 5 mg THREE TIMES A DAY GT 08/02/19 09:00 08/29/19 12:59 08/02/19 17:52 Mineral Oil (Mineral Oil) 30 ml DAILY PRN ORAL Constipation 08/02/19 08:00 09/01/19 07:59 Norepinephrine Bitartrate 4 mg/ Dextrose 250 ml @ 0 mls/hr Q24H IV 07/31/19 18:00 08/30/19 17:59 08/02/19 16:26 Piperacillin Sod/ Tazobactam Sod 3.375 gm/Dextrose 100 ml @ 25 mls/hr EVERY 8 HOURS IVPB 08/02/19 22:00 08/07/19 21:59 08/02/19 21:37 Polyethylene Glycol (Miralax) 17 gm BEDTIME ORAL 08/01/19 21:00 08/31/19 20:59 08/02/19 20:54 Sodium Chloride 1,000 ml @ 125 mls/hr Q8H IV 07/29/19 09:00 08/28/19 08:59 08/02/19 16:27 Laboratory Tests Test 08/02/19 05:53 White Blood Count 6.9 K/UL (4.8-10.8) Red Blood Count 4.56 M/UL (4.70-6.10) L Hemoglobin 14.2 G/DL (14.2-18.0) Hematocrit 43.1 % (42.0-52.0) Mean Corpuscular Volume 95 FL (80-99) Mean Corpuscular Hemoglobin 31.1 PG (27.0-31.0) H Mean Corpuscular Hemoglobin Concent 32.9 G/DL (32.0-36.0) Red Cell Distribution Width 14.6 % (11.6-14.8) Platelet Count 367 K/UL (150-450) Mean Platelet Volume 6.1 FL (6.5-10.1) L Neutrophils (%) (Auto) 59.2 % (45.0-75.0) Lymphocytes (%) (Auto) 28.7 % (20.0-45.0) Monocytes (%) (Auto) 7.2 % (1.0-10.0) Eosinophils (%) (Auto) 3.7 % (0.0-3.0) H Basophils (%) (Auto) 1.2 % (0.0-2.0) Sodium Level 137 MMOL/L (136-145) Potassium Level 3.8 MMOL/L (3.5-5.1) Chloride Level 104 MMOL/L (98-107) Carbon Dioxide Level 27 MMOL/L (21-32) Anion Gap 6 mmol/L (5-15) Blood Urea Nitrogen 8 mg/dL (7-18) Creatinine 0.7 MG/DL (0.55-1.30) Estimat Glomerular Filtration Rate > 60 mL/min (>60) Glucose Level 123 MG/DL (74-106) H Calcium Level 7.8 MG/DL (8.5-10.1) L Total Bilirubin 1.3 MG/DL (0.2-1.0) H Direct Bilirubin 0.7 MG/DL (0.0-0.3) H Aspartate Amino Transf (AST/SGOT) 451 U/L (15-37) H Alanine Aminotransferase (ALT/SGPT) 709 U/L (12-78) H Alkaline Phosphatase 123 U/L (46-116) H Total Protein 7.8 G/DL (6.4-8.2) Albumin 2.2 G/DL (3.4-5.0) L Globulin 5.6 g/dL Albumin/Globulin Ratio 0.4 (1.0-2.7) L Letitia Fan DO Aug 02, 2019 08:10
[2019-08-02] MEDS: Lactulose 20gm/30ml UDC GT SCH ×3 (08:42→17:52)
[2019-08-02] MEDS: Docusate 100mg/10ml Liq GT SCH ×2 (08:42→17:52)
[2019-08-02] MEDS: Midodrine 10mg tab GT SCH ×3 (08:42→17:52)
[2019-08-02] MEDS: Heparin 5000 units/ml inj SUBQ SCH ×2 (08:43→20:55)
[2019-08-02] MEDS ORDERED: Lactulose 20gm/30ml UDC ORAL SCH (09:00)
[2019-08-02] MEDS ORDERED: NS 275ml ONE (10:44)
--- NOTE | 2019-08-02 10:56 | Diagnostic Imaging Report ---
EXAM: XR Chest, 1 View CLINICAL HISTORY: INFECT TECHNIQUE: Frontal view of the chest. COMPARISON: Chest x-ray, 07/30/19 FINDINGS: Lungs: Bibasilar lung atelectasis/airspace disease. Interstitial thickening. Pleural space: Small right pleural effusion. Query tiny left pleural effusion. No pneumothorax. Heart: Unremarkable. No cardiomegaly. Mediastinum: Unremarkable. Bones/joints: Unremarkable. Tubes, lines and devices: Interval placement of right PICC line to the cavoatrial junction. IMPRESSION: 1. Interval placement of right PICC line to the cavoatrial junction. 2. Small right pleural effusion. Query tiny left pleural effusion. 3. Bibasilar lung atelectasis/airspace disease. Interstitial thickening.
--- NOTE | 2019-08-02 12:11 | General Progress Note ---
Assessment/Plan Status: other - critical Assessment/Plan: 54-year-old male, group home resident Down syndrome, diastolic CHF, hypertension,hyperlipidemia, iron deficiency anemia, hypothyroidism, GERD, aortic stenosis, bilateral foot pressure ulcers, dysphagia s/p PEG presenting with altered mental status and hypoxia being admitted with septic shock likely secondary to pneumonia and possible abdominal source given elevated LFTs, though could be due to hypotension. CT abdomen pelvis without any source for infection. #Shock likely hypovolemic and septic #Healthcare associated pneumonia IV fluid hydration. Wean levo Cardiology consult with Dr. Owen regarding BP management Continue home midodrine- d/w rn Broad spectrum antibiotics with vancomycin and meropenem per ID consult . case d /w Dr. Serrano follow up blood and sputum cultures Pulmonary consult with Dr. Luevano. case d/w AM cortisol --> 12.7 Wean Levophed, patient has baseline low blood pressure if asymptomatic would recommend to continue to wean Levophed #toxic metabolic encephalopathy- improving Monitor mental status, treat sepsis #hypotonic hyponatremia- corrected continue to monitor #Abnormal LFTs #Acute Hepatitis B -right upper quadrant ultrasound- reviewed, no acute pathology -Trend LFTs - Upon reviewing the chart, on previous admission hepatitis B surface antigen, hepatitis B core total antibody and hepatitis Be antibody was positive. liver function tests were normal. Patient was referred to follow up outpatient. -GI consult -continue Lamivudine 100mg GT BID Hep B DNA>>> pending # Dysphagia, status post G-tube #GERD resume tube feeds #Down syndrome. #Diastolic CHF- not in exacerbation #hypertension- hypotensive now #hyperlipidemia # hypovolemic Hold BP meds #iron deficiency anemia H/H stable continue to monitor Anemia panel prn transfusion #hypothyroidism -Continue Synthroid, follow up TSH- normal #Bilateral wounds and pressure ulcers to the heels wound care consult with Dr. Ruffin, surgery off loading turning q2 hr VTE ppx: heparin subcutaneous. GI ppx: IV PPI Diet: tube feeds Code status, DNI, however can resuscitate disposition: Keep in ICU I spent 75 minutes on this patient's case, and 40 mins was dedicated to critical care The time of my note may not reflect the time of my patient encounter. Critical Care Services performed include: Telemetry Review Hemodynamic measurement interpretation Laboratory data review and interpretation Radiology image review and interpretation Interpretation of ABG's Discussion of patient's care with ICU team, ICU Nursing staff and/or consulting services Subjective Date patient seen: Aug 02, 2019 Time patient seen: 12:09 Allergies: Coded Allergies: KETAMINE (Verified Allergy, Unknown, 05/29/19) NSAIDS (NON-STEROIDAL ANTI-INFLAMMA (Verified Allergy, Unknown, 05/29/19) Subjective patient non verbal no acute events o/n wean off levo attempted, however sbp dropped to 70-80's per RN Objective Last 24 Hour Vital Signs Date Time Temp Pulse Resp B/P (MAP) Pulse Ox O2 Delivery O2 Flow Rate FiO2 08/02/19 11:00 72 23 106/63 (77) 97 08/02/19 10:30 66 22 122/60 (80) 97 08/02/19 10:00 65 24 132/65 (87) 97 08/02/19 10:00 130/62 08/02/19 09:30 66 20 112/57 (75) 98 08/02/19 09:00 69 29 105/51 (69) 97 08/02/19 09:00 114/51 08/02/19 08:30 75 35 108/49 (68) 98 08/02/19 08:00 71 08/02/19 08:00 97.7 79 21 103/64 (77) 100 08/02/19 08:00 117/46 08/02/19 08:00 Nasal Cannula 2.0 08/02/19 07:30 66 30 106/50 (68) 97 08/02/19 07:22 90/41 08/02/19 07:15 93 20 90/41 (57) 96 08/02/19 07:00 108/41 08/02/19 07:00 59 22 108/41 (63) 97 08/02/19 06:45 73 25 92/52 (65) 97 08/02/19 06:30 65 21 111/43 (65) 98 08/02/19 06:00 111/51 08/02/19 06:00 69 23 111/51 (71) 97 08/02/19 05:45 69 25 125/54 (77) 95 08/02/19 05:30 78 22 132/50 (77) 96 08/02/19 05:15 67 24 124/56 (78) 96 08/02/19 05:00 77 26 119/57 (77) 97 08/02/19 05:00 119/57 08/02/19 04:00 72 08/02/19 04:00 108/53 08/02/19 04:00 Nasal Cannula 2.0 08/02/19 04:00 98.2 74 19 108/53 (71) 96 08/02/19 03:30 68 26 124/54 (77) 97 08/02/19 03:04 77 21 96/46 (63) 97 08/02/19 03:00 96/46 08/02/19 02:45 70 21 110/48 (68) 97 08/02/19 02:30 65 31 122/41 (68) 98 08/02/19 02:05 72/48 08/02/19 02:00 63 25 118/51 (73) 96 08/02/19 01:45 63 26 124/55 (78) 96 08/02/19 01:30 66 26 140/49 (79) 97 08/02/19 01:15 60 28 128/45 (72) 96 08/02/19 01:00 65 24 123/57 (79) 96 08/02/19 01:00 128/45 08/02/19 00:45 59 23 143/47 (79) 96 08/02/19 00:30 66 19 129/59 (82) 96 08/02/19 00:15 56 28 135/59 (84) 97 08/02/19 00:00 98.0 57 22 144/52 (82) 98 08/02/19 00:00 144/52 08/02/19 00:00 60 08/02/19 00:00 Nasal Cannula 2.0 08/01/19 23:53 72/31 08/01/19 23:52 72/31 08/01/19 23:51 70 22 72/31 (45) 98 08/01/19 23:45 61 21 76/24 (41) 98 08/01/19 23:30 57 21 112/41 (64) 97 08/01/19 23:15 59 24 111/44 (66) 96 08/01/19 23:00 58 24 127/66 (86) 97 08/01/19 23:00 127/66 08/01/19 22:45 59 25 113/46 (68) 97 08/01/19 22:30 60 25 119/48 (71) 97 08/01/19 22:15 66 24 88/38 (55) 97 08/01/19 22:08 62 24 97/39 (58) 97 08/01/19 22:00 81/39 08/01/19 22:00 61 24 81/39 (53) 96 08/01/19 21:45 51 21 106/34 (58) 96 08/01/19 21:30 63 24 102/41 (61) 97 08/01/19 21:15 60 25 108/34 (58) 99 08/01/19 21:00 102/43 08/01/19 21:00 63 22 102/43 (62) 96 08/01/19 20:45 54 21 97 Nasal Cannula 3.0 32 08/01/19 20:45 67 24 107/43 (64) 97 08/01/19 20:45 97 Nasal Cannula 3.0 32 08/01/19 20:30 67 27 109/44 (65) 99 08/01/19 20:15 61 27 113/39 (63) 99 08/01/19 20:00 Nasal Cannula 2.0 08/01/19 20:00 105/42 08/01/19 20:00 98.0 51 20 105/42 (63) 98 08/01/19 20:00 62 08/01/19 19:45 65 29 100/54 (69) 99 08/01/19 19:30 69 27 86/48 (61) 98 08/01/19 19:15 52 24 115/39 (64) 98 08/01/19 19:00 57 22 117/41 (66) 97 08/01/19 19:00 115/39 08/01/19 18:30 63 24 118/52 (74) 98 08/01/19 18:00 52 26 126/45 (72) 97 08/01/19 18:00 126/45 08/01/19 17:30 65 26 117/51 (73) 97 08/01/19 17:00 59 26 110/60 (77) 97 08/01/19 17:00 110/60 08/01/19 16:30 97.3 61 29 116/52 (73) 97 08/01/19 16:00 56 29 109/50 (69) 94 08/01/19 16:00 109/50 08/01/19 16:00 88 08/01/19 16:00 Nasal Cannula 2.0 08/01/19 15:30 65 31 107/42 (63) 96 08/01/19 15:00 64 32 100/47 (64) 95 08/01/19 15:00 110/52 08/01/19 14:30 61 29 129/54 (79) 98 08/01/19 14:15 129/54 08/01/19 14:00 52 24 126/58 (80) 97 08/01/19 14:00 121/55 08/01/19 13:45 126/58 08/01/19 13:30 59 32 132/57 (82) 99 08/01/19 13:30 132/57 08/01/19 13:00 56 19 158/62 (94) 98 08/01/19 13:00 141/54 08/01/19 12:45 130/60 08/01/19 12:30 120/74 08/01/19 12:30 58 25 120/74 (89) 98 08/01/19 12:15 57 25 106/47 (66) 98 08/01/19 12:15 120/74 Intake and Output 08/01/19 08/02/19 19:00 07:00 Intake Total 1874.785 ml 2385.500 ml Output Total 2095 ml 2395 ml Balance -220.215 ml -9.500 ml IV Total 1874.785 ml 2265.500 ml Tube Feeding 0 ml 0 ml Other 120 ml Output Urine Total 2095 ml 2395 ml Laboratory Tests 08/02/19 05:53: White Blood Count 6.9, Red Blood Count 4.56L, Hemoglobin 14.2, Hematocrit 43.1, Mean Corpuscular Volume 95, Mean Corpuscular Hemoglobin 31.1H, Mean Corpuscular Hemoglobin Concent 32.9, Red Cell Distribution Width 14.6, Platelet Count 367, Mean Platelet Volume 6.1L, Neutrophils (%) (Auto) 59.2, Lymphocytes (%) (Auto) 28.7, Monocytes (%) (Auto) 7.2, Eosinophils (%) (Auto) 3.7H, Basophils (%) (Auto ) 1.2, Sodium Level 137, Potassium Level 3.8, Chloride Level 104, Carbon Dioxide Level 27, Anion Gap 6, Blood Urea Nitrogen 8, Creatinine 0.7, Estimat Glomerular Filtration Rate > 60, Glucose Level 123H, Calcium Level 7.8L, Total Bilirubin 1.3H, Direct Bilirubin 0.7H, Aspartate Amino Transf (AST/SGOT) 451H, Alanine Aminotransferase (ALT/SGPT) 709H, Alkaline Phosphatase 123H, Total Protein 7.8, Albumin 2.2L, Globulin 5.6, Albumin/Globulin Ratio 0.4L Height (Feet): 5 Height (Inches): 4.00 Weight (Pounds): 113 Objective GENERAL: Nonverbal, appears comfortable, eyes open spontaneously HEENT: NCAT, non-icteric eyes, Neck: No cervical lymphadenopathy, trachea midline CV: Regular rate and rhythm, no murmurs rubs or gallops RESP: Clear to auscultation bilaterally, no wheezes/rhonchi/crackles ABD: soft, non-distended, no TTP EXT: Operative changes noted on lower extremity, no edema, no cyanosis NEURO: No obvious deficits, alert and oriented x3 Shreya Fontanez DO Aug 02, 2019 12:11
--- NOTE | 2019-08-02 15:09 | Surgery Progress Note ---
Surgery Progress Note Subjective Symptoms: improved, tolerating diet, passing flatus Objective Last 24 Hour Vital Signs Date Time Temp Pulse Resp B/P (MAP) Pulse Ox O2 Delivery O2 Flow Rate FiO2 08/02/19 13:00 78 32 104/49 (67) 98 08/02/19 12:30 82 26 98/48 (65) 98 08/02/19 12:00 98.8 70 25 102/38 (59) 96 08/02/19 12:00 Room Air 08/02/19 12:00 76 08/02/19 11:30 79 23 145/56 (85) 98 08/02/19 11:00 72 23 106/63 (77) 97 08/02/19 10:30 66 22 122/60 (80) 97 08/02/19 10:00 65 24 132/65 (87) 97 08/02/19 10:00 130/62 08/02/19 09:30 66 20 112/57 (75) 98 08/02/19 09:00 69 29 105/51 (69) 97 08/02/19 09:00 114/51 08/02/19 08:30 75 35 108/49 (68) 98 08/02/19 08:00 71 08/02/19 08:00 97.7 79 21 103/64 (77) 100 08/02/19 08:00 117/46 08/02/19 08:00 Nasal Cannula 2.0 08/02/19 07:30 66 30 106/50 (68) 97 08/02/19 07:22 90/41 08/02/19 07:20 98 Nasal Cannula 3.0 32 08/02/19 07:15 93 20 90/41 (57) 96 08/02/19 07:00 108/41 08/02/19 07:00 59 22 108/41 (63) 97 08/02/19 06:45 73 25 92/52 (65) 97 08/02/19 06:30 65 21 111/43 (65) 98 08/02/19 06:00 111/51 08/02/19 06:00 69 23 111/51 (71) 97 08/02/19 05:45 69 25 125/54 (77) 95 08/02/19 05:30 78 22 132/50 (77) 96 08/02/19 05:15 67 24 124/56 (78) 96 12/15/19 05:00 77 26 119/57 (77) 97 08/02/19 05:00 119/57 08/02/19 04:00 72 08/02/19 04:00 108/53 08/02/19 04:00 Nasal Cannula 2.0 08/02/19 04:00 98.2 74 19 108/53 (71) 96 08/02/19 03:30 68 26 124/54 (77) 97 08/02/19 03:04 77 21 96/46 (63) 97 08/02/19 03:00 96/46 08/02/19 02:45 70 21 110/48 (68) 97 08/02/19 02:30 65 31 122/41 (68) 98 08/02/19 02:05 72/48 08/02/19 02:00 63 25 118/51 (73) 96 08/02/19 01:45 63 26 124/55 (78) 96 08/02/19 01:30 66 26 140/49 (79) 97 08/02/19 01:15 60 28 128/45 (72) 96 08/02/19 01:00 65 24 123/57 (79) 96 08/02/19 01:00 128/45 08/02/19 00:45 59 23 143/47 (79) 96 08/02/19 00:30 66 19 129/59 (82) 96 08/02/19 00:15 56 28 135/59 (84) 97 08/02/19 00:00 98.0 57 22 144/52 (82) 98 08/02/19 00:00 144/52 08/02/19 00:00 60 08/02/19 00:00 Nasal Cannula 2.0 08/01/19 23:53 72/31 08/01/19 23:52 72/31 08/01/19 23:51 70 22 72/31 (45) 98 08/01/19 23:45 61 21 76/24 (41) 98 08/01/19 23:30 57 21 112/41 (64) 97 08/01/19 23:15 59 24 111/44 (66) 96 08/01/19 23:00 58 24 127/66 (86) 97 08/01/19 23:00 127/66 08/01/19 22:45 59 25 113/46 (68) 97 08/01/19 22:30 60 25 119/48 (71) 97 08/01/19 22:15 66 24 88/38 (55) 97 08/01/19 22:08 62 24 97/39 (58) 97 08/01/19 22:00 81/39 08/01/19 22:00 61 24 81/39 (53) 96 08/01/19 21:45 51 21 106/34 (58) 96 08/01/19 21:30 63 24 102/41 (61) 97 08/01/19 21:15 60 25 108/34 (58) 99 08/01/19 21:00 102/43 08/01/19 21:00 63 22 102/43 (62) 96 08/01/19 20:45 54 21 97 Nasal Cannula 3.0 32 08/01/19 20:45 67 24 107/43 (64) 97 08/01/19 20:45 97 Nasal Cannula 3.0 32 08/01/19 20:30 67 27 109/44 (65) 99 08/01/19 20:15 61 27 113/39 (63) 99 08/01/19 20:00 Nasal Cannula 2.0 08/01/19 20:00 105/42 08/01/19 20:00 98.0 51 20 105/42 (63) 98 08/01/19 20:00 62 08/01/19 19:45 65 29 100/54 (69) 99 08/01/19 19:30 69 27 86/48 (61) 98 08/01/19 19:15 52 24 115/39 (64) 98 08/01/19 19:00 57 22 117/41 (66) 97 08/01/19 19:00 115/39 08/01/19 18:30 63 24 118/52 (74) 98 08/01/19 18:00 52 26 126/45 (72) 97 08/01/19 18:00 126/45 08/01/19 17:30 65 26 117/51 (73) 97 08/01/19 17:00 59 26 110/60 (77) 97 08/01/19 17:00 110/60 08/01/19 16:30 97.3 61 29 116/52 (73) 97 08/01/19 16:00 56 29 109/50 (69) 94 08/01/19 16:00 109/50 08/01/19 16:00 88 08/01/19 16:00 Nasal Cannula 2.0 08/01/19 15:30 65 31 107/42 (63) 96 I&O Intake and Output 08/01/19 08/02/19 19:00 07:00 Intake Total 1874.785 ml 2385.500 ml Output Total 2095 ml 2395 ml Balance -220.215 ml -9.500 ml IV Total 1874.785 ml 2265.500 ml Tube Feeding 0 ml 0 ml Other 120 ml Output Urine Total 2095 ml 2395 ml Dressing: saturated, other Wound: other Cardiovascular: RSR Respiratory: clear, decreased breath sounds Abdomen: soft, present bowel sounds Extremities: no cyanosis, other Laboratory Tests Test 08/02/19 05:53 White Blood Count 6.9 K/UL (4.8-10.8) Red Blood Count 4.56 M/UL (4.70-6.10) L Hemoglobin 14.2 G/DL (14.2-18.0) Hematocrit 43.1 % (42.0-52.0) Mean Corpuscular Volume 95 FL (80-99) Mean Corpuscular Hemoglobin 31.1 PG (27.0-31.0) H Mean Corpuscular Hemoglobin Concent 32.9 G/DL (32.0-36.0) Red Cell Distribution Width 14.6 % (11.6-14.8) Platelet Count 367 K/UL (150-450) Mean Platelet Volume 6.1 FL (6.5-10.1) L Neutrophils (%) (Auto) 59.2 % (45.0-75.0) Lymphocytes (%) (Auto) 28.7 % (20.0-45.0) Monocytes (%) (Auto) 7.2 % (1.0-10.0) Eosinophils (%) (Auto) 3.7 % (0.0-3.0) H Basophils (%) (Auto) 1.2 % (0.0-2.0) Sodium Level 137 MMOL/L (136-145) Potassium Level 3.8 MMOL/L (3.5-5.1) Chloride Level 104 MMOL/L (98-107) Carbon Dioxide Level 27 MMOL/L (21-32) Anion Gap 6 mmol/L (5-15) Blood Urea Nitrogen 8 mg/dL (7-18) Creatinine 0.7 MG/DL (0.55-1.30) Estimat Glomerular Filtration Rate > 60 mL/min (>60) Glucose Level 123 MG/DL (74-106) H Calcium Level 7.8 MG/DL (8.5-10.1) L Total Bilirubin 1.3 MG/DL (0.2-1.0) H Direct Bilirubin 0.7 MG/DL (0.0-0.3) H Aspartate Amino Transf (AST/SGOT) 451 U/L (15-37) H Alanine Aminotransferase (ALT/SGPT) 709 U/L (12-78) H Alkaline Phosphatase 123 U/L (46-116) H Total Protein 7.8 G/DL (6.4-8.2) Albumin 2.2 G/DL (3.4-5.0) L Globulin 5.6 g/dL Albumin/Globulin Ratio 0.4 (1.0-2.7) L Plan Problems: (1) Septic shock Assessment & Plan: This is a 54-year-old male with multi-medical morbidities history of Down's who presents with hypotension, tachycardia, abnormal electrolytes, abnormal LFTs. Patient currently admitted to the intensive care unit for care and management. Abdominal ultrasound noted as below Does not seem to have intra-abdominal etiology of sepsis/SIRS We will continue with work-up Continue with IV fluid resuscitation Trend labs Hold on central venous catheter placement as patient is responsive to IV fluids. If requires pressors okay to use midline for a short period of time until peripherally inserted central venous catheter placed. Local wound care as below Once stable will resume nutritional goals Thank you will follow the recommendations Gallbladder is unremarkable, without stones, wall thickening, nor pericholecystic fluid. Sonographic Gamez's sign is negative. Common bile duct measures 5 mm in diameter. No intrahepatic biliary ductal dilatation. Liver demonstrates slightly coarsened echogenicity. No focal abnormality. Portal vein and hepatic veins are patent. Pancreas is unremarkable. Spleen is unremarkable. Left kidney measures left cm in length. Right kidney measures 11.2 cm length. Both kidneys demonstrate normal echogenicity. There is mild fullness to the right renal collecting system, and very mild left hydronephrosis No focal abnormality . Non-aneurysmal abdominal aorta . There is a right hip prosthesis which throws off streak artifact which may obscure pelvic pathology. There is also some image degradation due to respiratory motion artifact in the upper abdomen. Lack of enteric contrast limits assessment of the GI tract. The rectum is distended by stool, measuring 6.7 cm in diameter. No definite wall thickening or perirectal inflammation demonstrated. Considerable dense stool is also seen elsewhere within the colon. No evidence of colonic diverticulosis or diverticulitis. The appendix is normal. No small bowel distention. There is a gastrostomy which appears to be in good position. Lack of IV contrast limits assessment of the solid organs. The liver, gallbladder, bile ducts, pancreas, spleen, adrenals are all unremarkable. There is mild fullness to the bilateral renal collecting systems and ureters. No focal renal parenchymal abnormality. No renal or ureteral calculi demonstrated. The bladder is markedly distended. It demonstrates mild wall thickening. No pelvic mass or adenopathy. The lung bases demonstrate bronchial wall thickening and basilar atelectatic changes as well as possibly some bronchiectasis on the left. There may be trace pleural fluid bilaterally. There is a small anterior wall pericardial effusion which measures up to 7 mm in thickness. The bones demonstrate a compression fracture deformity of the T11 vertebral body. This results in about 30% height loss. This is in retrospect evident also on a prior chest CT of 06/03/2019 Alexis Ruffin Aug 02, 2019 15:09
[2019-08-02] MEDS: Linezolid 600mg/300mL Premix IVPB SCH (16:26)
--- NOTE | 2019-08-02 16:39 | Infectious Diseases Prog Note ---
Assessment/Plan Assessment/Plan ASSESSMENT: 1. 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 The patient has a history of Down syndrome. 3. Wound care protocol, wounds do not look acutely infected. 4. Diastolic CHF. 5. Hypertension. 6. Hyperlipidemia. 7. Anemia. 8. Hypothyroidism 9. GERD. 10. Aortic stenosis. 11. Dysphagia and G-tube. 12. Allergies to ketamine and NSAIDs. 13. Social history is negative. 14. Family history is noncontributory. 15. MAR was noted. 16. Case discussed with RN. 17. ICU care. 18. The patient also has elevated LFTs. I think an abdominal ultrasound has been ordered, this most likely is from septic shock. 19. Continue treatment per primary consultants and ICU care and nursing staff. 20. 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 Subjective Constitutional: Reports: other; Denies: fever HEENT: Reports: congestion Respiratory: Reports: shortness of breath Cardiovascular: Reports: other - + pressors ; Denies: chest pain Gastrointestinal/Abdominal: Denies: nausea, vomiting, diarrhea Genitourinary: Reports: other - + jones Neurologic: Reports: other - alert, no change in mental status Psychiatric: Reports: other - NA Skin: Denies: rash Hematologic: Denies: bleeding Musculoskeletal: Reports: other - NA Allergies: Coded Allergies: KETAMINE (Verified Allergy, Unknown, 05/29/19) NSAIDS (NON-STEROIDAL ANTI-INFLAMMA (Verified Allergy, Unknown, 05/29/19) Objective Vital Signs Last 24 Hour Vital Signs Date Time Temp Pulse Resp B/P (MAP) Pulse Ox O2 Delivery O2 Flow Rate FiO2 08/02/19 16:26 105/66 08/02/19 16:00 59 08/02/19 16:00 98.7 65 22 97/83 (88) 98 08/02/19 16:00 Room Air 08/02/19 15:30 85 24 132/72 (92) 98 08/02/19 15:00 75 28 113/43 (66) 97 08/02/19 14:30 78 32 106/54 (71) 97 08/02/19 14:00 59 22 148/69 (95) 96 08/02/19 13:30 66 34 108/52 (70) 97 08/02/19 13:00 78 32 104/49 (67) 98 08/02/19 12:30 82 26 98/48 (65) 98 08/02/19 12:00 98.8 70 25 102/38 (59) 96 08/02/19 12:00 Room Air 08/02/19 12:00 76 08/02/19 11:30 79 23 145/56 (85) 98 08/02/19 11:00 72 23 106/63 (77) 97 08/02/19 10:30 66 22 122/60 (80) 97 08/02/19 10:00 65 24 132/65 (87) 97 08/02/19 10:00 130/62 08/02/19 09:30 66 20 112/57 (75) 98 08/02/19 09:00 69 29 105/51 (69) 97 08/02/19 09:00 114/51 08/02/19 08:30 75 35 108/49 (68) 98 08/02/19 08:00 71 08/02/19 08:00 97.7 79 21 103/64 (77) 100 08/02/19 08:00 117/46 08/02/19 08:00 Nasal Cannula 2.0 08/02/19 07:30 66 30 106/50 (68) 97 08/02/19 07:22 90/41 08/02/19 07:20 98 Nasal Cannula 3.0 32 08/02/19 07:15 93 20 90/41 (57) 96 08/02/19 07:00 108/41 08/02/19 07:00 59 22 108/41 (63) 97 08/02/19 06:45 73 25 92/52 (65) 97 08/02/19 06:30 65 21 111/43 (65) 98 08/02/19 06:00 111/51 08/02/19 06:00 69 23 111/51 (71) 97 08/02/19 05:45 69 25 125/54 (77) 95 08/02/19 05:30 78 22 132/50 (77) 96 08/02/19 05:15 67 24 124/56 (78) 96 08/02/19 05:00 77 26 119/57 (77) 97 08/02/19 05:00 119/57 08/02/19 04:00 72 08/02/19 04:00 108/53 08/02/19 04:00 Nasal Cannula 2.0 08/02/19 04:00 98.2 74 19 108/53 (71) 96 08/02/19 03:30 68 26 124/54 (77) 97 08/02/19 03:04 77 21 96/46 (63) 97 08/02/19 03:00 96/46 08/02/19 02:45 70 21 110/48 (68) 97 08/02/19 02:30 65 31 122/41 (68) 98 08/02/19 02:05 72/48 08/02/19 02:00 63 25 118/51 (73) 96 08/02/19 01:45 63 26 124/55 (78) 96 08/02/19 01:30 66 26 140/49 (79) 97 08/02/19 01:15 60 28 128/45 (72) 96 08/02/19 01:00 65 24 123/57 (79) 96 08/02/19 01:00 128/45 08/02/19 00:45 59 23 143/47 (79) 96 08/02/19 00:30 66 19 129/59 (82) 96 08/02/19 00:15 56 28 135/59 (84) 97 08/02/19 00:00 98.0 57 22 144/52 (82) 98 08/02/19 00:00 144/52 08/02/19 00:00 60 08/02/19 00:00 Nasal Cannula 2.0 08/01/19 23:53 72/31 08/01/19 23:52 72/31 08/01/19 23:51 70 22 72/31 (45) 98 08/01/19 23:45 61 21 76/24 (41) 98 08/01/19 23:30 57 21 112/41 (64) 97 08/01/19 23:15 59 24 111/44 (66) 96 08/01/19 23:00 58 24 127/66 (86) 97 08/01/19 23:00 127/66 08/01/19 22:45 59 25 113/46 (68) 97 08/01/19 22:30 60 25 119/48 (71) 97 08/01/19 22:15 66 24 88/38 (55) 97 08/01/19 22:08 62 24 97/39 (58) 97 08/01/19 22:00 81/39 08/01/19 22:00 61 24 81/39 (53) 96 08/01/19 21:45 51 21 106/34 (58) 96 08/01/19 21:30 63 24 102/41 (61) 97 08/01/19 21:15 60 25 108/34 (58) 99 08/01/19 21:00 102/43 08/01/19 21:00 63 22 102/43 (62) 96 08/01/19 20:45 54 21 97 Nasal Cannula 3.0 32 08/01/19 20:45 67 24 107/43 (64) 97 08/01/19 20:45 97 Nasal Cannula 3.0 32 08/01/19 20:30 67 27 109/44 (65) 99 08/01/19 20:15 61 27 113/39 (63) 99 08/01/19 20:00 Nasal Cannula 2.0 08/01/19 20:00 105/42 08/01/19 20:00 98.0 51 20 105/42 (63) 98 08/01/19 20:00 62 08/01/19 19:45 65 29 100/54 (69) 99 08/01/19 19:30 69 27 86/48 (61) 98 08/01/19 19:15 52 24 115/39 (64) 98 08/01/19 19:00 57 22 117/41 (66) 97 08/01/19 19:00 115/39 08/01/19 18:30 63 24 118/52 (74) 98 08/01/19 18:00 52 26 126/45 (72) 97 08/01/19 18:00 126/45 08/01/19 17:30 65 26 117/51 (73) 97 08/01/19 17:00 59 26 110/60 (77) 97 08/01/19 17:00 110/60 Height (Feet): 5 Height (Inches): 4.00 Weight (Pounds): 113 General Appearance: no acute distress HEENT: normocephalic, atraumatic, anicteric, mucous membranes moist Respiratory/Chest: crackles/rales, rhonchi - bilaterally Cardiovascular: normal rate, regular rhythm, no gallop/murmur, no JVD Abdomen: normal bowel sounds, soft, non tender, no organomegaly, non distended Genitourinary: other - + jones - urine clear Extremities: no cyanosis Skin: no rash 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 Patient is rotated to the right. There are increasing opacities at the lung bases, right greater than left. Left superhilar atelectasis or scarring is unchanged. There is an development of a small right-sided pleural effusion. No radiographically appreciable pneumothorax. Osseous structures stable. Multiple surgical clips noted projecting over the region of the right elbow. Impression: Limited exam due to suboptimal positioning. Worsening aeration with increasing bilateral airspace opacities, right greater than left. Interval development of a small right pleural effusion. Chest x-ray - 08/02/19 - IMPRESSION: 1. Interval placement of right PICC line to the cavoatrial junction. 2. Small right pleural effusion. Query tiny left pleural effusion. 3. Bibasilar lung atelectasis/airspace disease. Interstitial thickening. Microbiology Date/Time Source Procedure Growth Status 07/29/19 17:00 Blood Blood Culture - Preliminary NO GROWTH AFTER 72 HOURS Resulted 07/29/19 17:10 Sputum Induced Gram Stain - Final Complete 07/29/19 17:10 Sputum Culture - Final Staphylococcus Aureus - Mrsa Complete 07/28/19 10:55 Rectum - Final NO CARBAPENEM-RESISTANT ENTEROBACTERI... Complete Microbiology Date/Time Source Procedure Growth Status 07/29/19 17:00 Blood Blood Culture - Preliminary NO GROWTH AFTER 72 HOURS Resulted 07/29/19 17:10 Sputum Induced Gram Stain - Final Complete 07/29/19 17:10 Sputum Culture - Final Staphylococcus Aureus - Mrsa Complete 07/28/19 10:55 Rectum - Final NO CARBAPENEM-RESISTANT ENTEROBACTERI... Complete Laboratory Tests Test 08/02/19 05:53 White Blood Count 6.9 K/UL (4.8-10.8) Red Blood Count 4.56 M/UL (4.70-6.10) L Hemoglobin 14.2 G/DL (14.2-18.0) Hematocrit 43.1 % (42.0-52.0) Mean Corpuscular Volume 95 FL (80-99) Mean Corpuscular Hemoglobin 31.1 PG (27.0-31.0) H Mean Corpuscular Hemoglobin Concent 32.9 G/DL (32.0-36.0) Red Cell Distribution Width 14.6 % (11.6-14.8) Platelet Count 367 K/UL (150-450) Mean Platelet Volume 6.1 FL (6.5-10.1) L Neutrophils (%) (Auto) 59.2 % (45.0-75.0) Lymphocytes (%) (Auto) 28.7 % (20.0-45.0) Monocytes (%) (Auto) 7.2 % (1.0-10.0) Eosinophils (%) (Auto) 3.7 % (0.0-3.0) H Basophils (%) (Auto) 1.2 % (0.0-2.0) Sodium Level 137 MMOL/L (136-145) Potassium Level 3.8 MMOL/L (3.5-5.1) Chloride Level 104 MMOL/L (98-107) Carbon Dioxide Level 27 MMOL/L (21-32) Anion Gap 6 mmol/L (5-15) Blood Urea Nitrogen 8 mg/dL (7-18) Creatinine 0.7 MG/DL (0.55-1.30) Estimat Glomerular Filtration Rate > 60 mL/min (>60) Glucose Level 123 MG/DL (74-106) H Calcium Level 7.8 MG/DL (8.5-10.1) L Total Bilirubin 1.3 MG/DL (0.2-1.0) H Direct Bilirubin 0.7 MG/DL (0.0-0.3) H Aspartate Amino Transf (AST/SGOT) 451 U/L (15-37) H Alanine Aminotransferase (ALT/SGPT) 709 U/L (12-78) H Alkaline Phosphatase 123 U/L (46-116) H Total Protein 7.8 G/DL (6.4-8.2) Albumin 2.2 G/DL (3.4-5.0) L Globulin 5.6 g/dL Albumin/Globulin Ratio 0.4 (1.0-2.7) L Current Medications Medications (Trade) Dose Ordered Sig/Kendra Route PRN Reason Start Time Stop Time Status Last Admin Dose Admin Acetaminophen (Tylenol) 650 mg Q4H PRN ORAL Mild Pain (Pain Scale 1-3) 07/28/19 12:15 08/27/19 12:14 07/31/19 20:17 Acetaminophen (Tylenol) 650 mg Q4H PRN ORAL fever 07/28/19 12:15 08/27/19 12:14 Chlorhexidine Gluconate (Judi-Hex 2%) 1 applic DAILY@2000 TOPIC 07/30/19 20:00 08/29/19 19:59 08/01/19 20:40 Dextrose (Dextrose 50%) 25 ml Q30M PRN IV Hypoglycemia 07/28/19 12:15 08/27/19 12:14 Dextrose (Dextrose 50%) 50 ml Q30M PRN IV Hypoglycemia 07/28/19 12:15 08/27/19 12:14 Docusate Sodium (Colace) 100 mg BID GT 08/01/19 09:00 08/31/19 08:59 08/02/19 08:42 Heparin Sodium (Porcine) (Heparin 5000 units/ml) 5,000 units EVERY 12 HOURS SUBQ 07/28/19 21:00 08/27/19 20:59 08/02/19 08:43 Hydromorphone HCl (Dilaudid) 1 mg Q4H PRN IVP Moderate Pain (Pain Scale 4-6) 07/28/19 12:15 08/04/19 12:14 Hydromorphone HCl (Dilaudid) 2 mg Q4H PRN IVP Severe Pain (Pain Scale 7-10) 07/28/19 12:15 08/04/19 12:14 Lactulose (Cephulac) 20 gm THREE TIMES A DAY GT 08/02/19 09:00 09/01/19 08:59 08/02/19 13:12 Levothyroxine Sodium (Synthroid) 50 mcg DAILY@0630 ORAL 07/30/19 06:30 08/29/19 06:29 08/02/19 05:58 Linezolid 300 ml @ 300 mls/hr Q12HR IVPB 08/02/19 17:00 08/09/19 16:59 08/02/19 16:26 Meropenem 1 gm/ Sodium Chloride 100 ml @ 200 mls/hr Q8H IVPB 07/31/19 20:00 08/05/19 19:59 08/02/19 11:47 Midodrine (Pro-Amatine) 5 mg THREE TIMES A DAY GT 08/02/19 09:00 08/29/19 12:59 08/02/19 13:12 Mineral Oil (Mineral Oil) 30 ml DAILY PRN ORAL Constipation 08/02/19 08:00 09/01/19 07:59 Norepinephrine Bitartrate 4 mg/ Dextrose 250 ml @ 0 mls/hr Q24H IV 07/31/19 18:00 08/30/19 17:59 08/02/19 16:26 Polyethylene Glycol (Miralax) 17 gm BEDTIME ORAL 08/01/19 21:00 08/31/19 20:59 08/01/19 20:40 Sodium Chloride 1,000 ml @ 125 mls/hr Q8H IV 07/29/19 09:00 08/28/19 08:59 08/02/19 16:27 Rafia Rand MD Aug 02, 2019 16:39
[2019-08-02] MEDS: Dyna-Hex 2% Top Sol 2oz TOPIC SCH (20:52)
[2019-08-02] MEDS: Miralax 17gm pkt ORAL SCH (20:54)
--- NOTE | 2019-08-02 22:23 | Cardiology Progress Note ---
Assessment/Plan Assessment/Plan 1. Septic shock on levophed gtt at 5 mcg, titrate to keep MAP >70 mmHg, continue midodrine. 2. History of supraventricular tachycardia, currently in SR. 3. Mild aortic stenosis 4. Moderate pulmonary HTN. 5. Mild LV diastolic dysfunction. Subjective Subjective Sinus rhythm at rate of 89. Objective Last 24 Hour Vital Signs Date Time Temp Pulse Resp B/P (MAP) Pulse Ox O2 Delivery O2 Flow Rate FiO2 08/02/19 21:00 112/63 08/02/19 21:00 71 31 112/63 (79) 97 08/02/19 20:45 67 35 102/55 (71) 97 08/02/19 20:30 68 26 111/56 (74) 97 08/02/19 20:15 69 31 124/54 (77) 96 08/02/19 20:00 84 08/02/19 20:00 97.5 84 28 128/67 (87) 96 08/02/19 20:00 Room Air 08/02/19 20:00 128/67 08/02/19 19:00 127/66 08/02/19 19:00 70 26 127/66 (86) 96 08/02/19 18:30 69 26 125/59 (81) 97 08/02/19 18:00 72 31 112/53 (72) 98 08/02/19 18:00 112/53 08/02/19 17:30 68 30 121/52 (75) 97 08/02/19 17:00 71 24 120/54 (76) 97 08/02/19 17:00 141/53 08/02/19 16:30 57 22 112/46 (68) 97 08/02/19 16:26 105/66 08/02/19 16:00 59 08/02/19 16:00 98.7 65 22 97/83 (88) 98 08/02/19 16:00 105/66 08/02/19 16:00 105/66 08/02/19 16:00 105/66 08/02/19 16:00 Room Air 08/02/19 15:30 85 24 132/72 (92) 98 08/02/19 15:00 107/53 08/02/19 15:00 107/53 08/02/19 15:00 107/53 08/02/19 15:00 75 28 113/43 (66) 97 08/02/19 14:45 113/43 08/02/19 14:45 113/43 08/02/19 14:45 113/43 08/02/19 14:30 78 32 106/54 (71) 97 08/02/19 14:30 129/51 08/02/19 14:30 129/51 08/02/19 14:30 129/51 08/02/19 14:15 117/58 08/02/19 14:15 117/58 08/02/19 14:15 117/58 08/02/19 14:00 59 22 148/69 (95) 96 08/02/19 14:00 128/52 08/02/19 14:00 128/52 08/02/19 14:00 128/52 08/02/19 13:45 148/69 08/02/19 13:45 148/69 08/02/19 13:45 148/69 08/02/19 13:30 66 34 108/52 (70) 97 08/02/19 13:00 78 32 104/49 (67) 98 08/02/19 13:00 90/46 08/02/19 13:00 90/46 08/02/19 13:00 90/46 08/02/19 12:30 82 26 98/48 (65) 98 08/02/19 12:00 98.8 70 25 102/38 (59) 96 08/02/19 12:00 102/38 08/02/19 12:00 102/38 08/02/19 12:00 102/38 08/02/19 12:00 Room Air 08/02/19 12:00 76 08/02/19 11:30 79 23 145/56 (85) 98 08/02/19 11:00 72 23 106/63 (77) 97 08/02/19 11:00 145/56 08/02/19 11:00 145/56 08/02/19 11:00 145/56 08/02/19 10:30 66 22 122/60 (80) 97 08/02/19 10:00 65 24 132/65 (87) 97 08/02/19 10:00 130/62 08/02/19 09:30 66 20 112/57 (75) 98 12/15/19 09:00 69 29 105/51 (69) 97 08/02/19 09:00 114/51 08/02/19 08:30 75 35 108/49 (68) 98 08/02/19 08:00 71 08/02/19 08:00 97.7 79 21 103/64 (77) 100 08/02/19 08:00 117/46 08/02/19 08:00 Nasal Cannula 2.0 08/02/19 07:30 66 30 106/50 (68) 97 08/02/19 07:22 90/41 08/02/19 07:20 98 Nasal Cannula 3.0 32 08/02/19 07:15 93 20 90/41 (57) 96 08/02/19 07:00 108/41 08/02/19 07:00 59 22 108/41 (63) 97 08/02/19 06:45 73 25 92/52 (65) 97 08/02/19 06:30 65 21 111/43 (65) 98 08/02/19 06:00 111/51 08/02/19 06:00 69 23 111/51 (71) 97 08/02/19 05:45 69 25 125/54 (77) 95 08/02/19 05:30 78 22 132/50 (77) 96 08/02/19 05:15 67 24 124/56 (78) 96 08/02/19 05:00 77 26 119/57 (77) 97 08/02/19 05:00 119/57 08/02/19 04:00 72 08/02/19 04:00 108/53 08/02/19 04:00 Nasal Cannula 2.0 08/02/19 04:00 98.2 74 19 108/53 (71) 96 08/02/19 03:30 68 26 124/54 (77) 97 08/02/19 03:04 77 21 96/46 (63) 97 08/02/19 03:00 96/46 08/02/19 02:45 70 21 110/48 (68) 97 08/02/19 02:30 65 31 122/41 (68) 98 08/02/19 02:05 72/48 08/02/19 02:00 63 25 118/51 (73) 96 08/02/19 01:45 63 26 124/55 (78) 96 08/02/19 01:30 66 26 140/49 (79) 97 08/02/19 01:15 60 28 128/45 (72) 96 08/02/19 01:00 65 24 123/57 (79) 96 08/02/19 01:00 128/45 08/02/19 00:45 59 23 143/47 (79) 96 08/02/19 00:30 66 19 129/59 (82) 96 08/02/19 00:15 56 28 135/59 (84) 97 08/02/19 00:00 98.0 57 22 144/52 (82) 98 08/02/19 00:00 144/52 08/02/19 00:00 60 08/02/19 00:00 Nasal Cannula 2.0 08/01/19 23:53 72/31 08/01/19 23:52 72/31 08/01/19 23:51 70 22 72/31 (45) 98 08/01/19 23:45 61 21 76/24 (41) 98 08/01/19 23:30 57 21 112/41 (64) 97 08/01/19 23:15 59 24 111/44 (66) 96 08/01/19 23:00 58 24 127/66 (86) 97 08/01/19 23:00 127/66 08/01/19 22:45 59 25 113/46 (68) 97 08/01/19 22:30 60 25 119/48 (71) 97 Intake and Output 08/01/19 08/02/19 18:59 06:59 Intake Total 1952.285 ml 2370.500 ml Output Total 2275 ml 2315 ml Balance -322.715 ml 55.500 ml IV Total 1897.285 ml 2250.500 ml Tube Feeding 55 ml 0 ml Other 120 ml Output Urine Total 2275 ml 2315 ml 2D Echo: EF 55%, JANETTE 1.8 c/m mod , Grade I LVDD, RVSP 49 c/w Mod Pul. HTN Laboratory Tests Test 08/02/19 05:53 White Blood Count 6.9 K/UL (4.8-10.8) Red Blood Count 4.56 M/UL (4.70-6.10) L Hemoglobin 14.2 G/DL (14.2-18.0) Hematocrit 43.1 % (42.0-52.0) Mean Corpuscular Volume 95 FL (80-99) Mean Corpuscular Hemoglobin 31.1 PG (27.0-31.0) H Mean Corpuscular Hemoglobin Concent 32.9 G/DL (32.0-36.0) Red Cell Distribution Width 14.6 % (11.6-14.8) Platelet Count 367 K/UL (150-450) Mean Platelet Volume 6.1 FL (6.5-10.1) L Neutrophils (%) (Auto) 59.2 % (45.0-75.0) Lymphocytes (%) (Auto) 28.7 % (20.0-45.0) Monocytes (%) (Auto) 7.2 % (1.0-10.0) Eosinophils (%) (Auto) 3.7 % (0.0-3.0) H Basophils (%) (Auto) 1.2 % (0.0-2.0) Sodium Level 137 MMOL/L (136-145) Potassium Level 3.8 MMOL/L (3.5-5.1) Chloride Level 104 MMOL/L (98-107) Carbon Dioxide Level 27 MMOL/L (21-32) Anion Gap 6 mmol/L (5-15) Blood Urea Nitrogen 8 mg/dL (7-18) Creatinine 0.7 MG/DL (0.55-1.30) Estimat Glomerular Filtration Rate > 60 mL/min (>60) Glucose Level 123 MG/DL (74-106) H Calcium Level 7.8 MG/DL (8.5-10.1) L Total Bilirubin 1.3 MG/DL (0.2-1.0) H Direct Bilirubin 0.7 MG/DL (0.0-0.3) H Aspartate Amino Transf (AST/SGOT) 451 U/L (15-37) H Alanine Aminotransferase (ALT/SGPT) 709 U/L (12-78) H Alkaline Phosphatase 123 U/L (46-116) H Total Protein 7.8 G/DL (6.4-8.2) Albumin 2.2 G/DL (3.4-5.0) L Globulin 5.6 g/dL Albumin/Globulin Ratio 0.4 (1.0-2.7) L Objective HEAD AND NECK: Shows no JVD or carotid bruits. LUNGS: Clear. CARDIOVASCULAR: Shows regular S1 and S2 with no gallops, murmurs or rubs. ABDOMEN: Status post G-tube. EXTREMITIES: No pitting edema. Valerio Oro MD Aug 02, 2019 22:23
[2019-08-03] VITALS (68 sets, daily range): BP systolic 84–120; BP diastolic 27–103
[2019-08-03 04:58] LABS: BASOPHILS % (AUTO) 1.2 % (0.0-2.0); EOSINOPHILS % (AUTO) 2.2 % (0.0-3.0); HEMATOCRIT 31.3 % (42.0-52.0); HEMOGLOBIN 10.7 G/DL (14.2-18.0); LYMPHOCYTES % (AUTO) 13.3 % (20.0-45.0); MEAN CORPUSCULAR VOLUME 93 FL (80-99); MONOCYTES % (AUTO) 3.3 % (1.0-10.0); PLATELET COUNT 293 K/UL (150-450); RED BLOOD COUNT 3.35 M/UL (4.70-6.10); RED CELL DISTRIBUTION WIDTH 14.6 % (11.6-14.8); WHITE BLOOD COUNT 9.5 K/UL (4.8-10.8)
[2019-08-03 05:21] LABS: ALANINE AMINOTRANSFERASE 591 U/L (12-78); ALBUMIN 1.8 G/DL (3.4-5.0); ALBUMIN/GLOBULIN RATIO 0.4 (1.0-2.7); ALKALINE PHOSPHATASE 172 U/L (46-116); ANION GAP 5 mmol/L (5-15); ASPARTATE AMINO TRANSFERASE 330 U/L (15-37); BILIRUBIN,TOTAL 0.7 MG/DL (0.2-1.0); BLOOD UREA NITROGEN 7 mg/dL (7-18); CALCIUM 7.7 MG/DL (8.5-10.1); CARBON DIOXIDE 27 MMOL/L (21-32); CHLORIDE 108 MMOL/L (98-107); CREATININE 0.6 MG/DL (0.55-1.30); POTASSIUM 3.3 MMOL/L (3.5-5.1); SODIUM 140 MMOL/L (136-145)
[2019-08-03] MEDS: Lactulose 20gm/30ml UDC GT SCH ×3 (08:47→17:29)
[2019-08-03] MEDS: Docusate 100mg/10ml Liq GT SCH ×2 (08:47→17:29)
[2019-08-03] MEDS: Midodrine 10mg tab GT SCH ×3 (08:48→17:29)
[2019-08-03] MEDS: Linezolid 600mg/300mL Premix IVPB SCH ×2 (08:49→20:51)
[2019-08-03] MEDS: Heparin 5000 units/ml inj SUBQ SCH ×2 (08:50→20:50)
--- NOTE | 2019-08-03 09:20 | General Progress Note ---
Assessment/Plan Status: stable, other - critical Assessment/Plan: 54-year-old male, snf resident Down syndrome, diastolic CHF, hypertension,hyperlipidemia, iron deficiency anemia, hypothyroidism, GERD, aortic stenosis, bilateral foot pressure ulcers, dysphagia s/p PEG presenting with altered mental status and hypoxia being admitted with septic shock likely secondary to pneumonia and possible abdominal source given elevated LFTs, though could be due to hypotension. CT abdomen pelvis without any source for infection. #Shock likely hypovolemic and septic. Staph aureus/vre/cnc bacteremia with possible mid-line infection, mrsa pneumonia, aspiration risk #Healthcare associated pneumonia IV fluid hydration. Wean levo Cardiology consult with Dr. Owen regarding BP management Continue home midodrine- d/w rn - zyvox and zosyn - day # 5 abx, discontinue meropenem for carbapenem sparing per ID recs . case d/w Dr. Serrano -mid-line removed, new picc line - f/u on cultures, labs and chest x-ray, check echo Pulmonary consult with Dr. Luevano. case d/w AM cortisol --> 12.7 Wean Levophed, patient has baseline low blood pressure if asymptomatic would recommend to continue to wean Levophed d/w RN keep in ICU #toxic metabolic encephalopathy- improving Monitor mental status, treat sepsis #hypotonic hyponatremia- corrected continue to monitor #Abnormal LFTs #Acute Hepatitis B -right upper quadrant ultrasound- reviewed, no acute pathology -Trend LFTs, improving - Upon reviewing the chart, on previous admission hepatitis B surface antigen, hepatitis B core total antibody and hepatitis Be antibody was positive. liver function tests were normal. Patient was referred to follow up outpatient. -GI consult -continue Lamivudine 100mg GT BID Hep B DNA>>> pending # Dysphagia, status post G-tube #GERD resume tube feeds #Down syndrome. #Diastolic CHF- not in exacerbation #hypertension- hypotensive now #hyperlipidemia # hypovolemic Hold BP meds #iron deficiency anemia H/H stable continue to monitor Anemia panel prn transfusion #hypothyroidism -Continue Synthroid, follow up TSH- normal #Bilateral wounds and pressure ulcers to the heels wound care consult with Dr. Ruffin, surgery off loading turning q2 hr VTE ppx: heparin subcutaneous. GI ppx: IV PPI Diet: tube feeds Code status, DNI, however can resuscitate disposition: Keep in ICU I spent 75 minutes on this patient's case, and 40 mins was dedicated to critical care The time of my note may not reflect the time of my patient encounter. Critical Care Services performed include: Telemetry Review Hemodynamic measurement interpretation Laboratory data review and interpretation Radiology image review and interpretation Interpretation of ABG's Discussion of patient's care with ICU team, ICU Nursing staff and/or consulting services Subjective Date patient seen: Aug 03, 2019 ROS Limited/Unobtainable: Yes Allergies: Coded Allergies: KETAMINE (Verified Allergy, Unknown, 05/29/19) NSAIDS (NON-STEROIDAL ANTI-INFLAMMA (Verified Allergy, Unknown, 05/29/19) Subjective remains in ICU, awake but non verbal (baseline), on levophed drip, 2, midline removed, new picc Objective Last 24 Hour Vital Signs Date Time Temp Pulse Resp B/P (MAP) Pulse Ox O2 Delivery O2 Flow Rate FiO2 08/03/19 06:00 120/49 08/03/19 05:45 98 30 117/53 (74) 92 08/03/19 05:30 77 19 114/50 (71) 96 08/03/19 05:15 90 32 114/51 (72) 94 08/03/19 05:00 101/44 08/03/19 05:00 96 31 101/44 (63) 94 08/03/19 04:45 87 25 106/50 (68) 90 08/03/19 04:37 107/43 08/03/19 04:30 107 34 107/43 (64) 91 08/03/19 04:15 109 24 98/47 (64) 91 08/03/19 04:00 100.0 111 26 113/57 (75) 92 08/03/19 04:00 Room Air 08/03/19 04:00 113/57 08/03/19 04:00 105 08/03/19 03:45 102 21 92/51 (65) 92 08/03/19 03:30 109 25 109/62 (78) 90 08/03/19 03:15 119 30 110/55 (73) 91 08/03/19 03:00 116/59 08/03/19 03:00 94 30 116/59 (78) 94 08/03/19 02:45 93 29 120/60 (80) 95 08/03/19 02:30 98 32 102/56 (71) 94 08/03/19 02:15 112 34 118/51 (73) 93 08/03/19 02:00 95 31 106/57 (73) 93 08/03/19 02:00 106/57 08/03/19 01:45 92 33 120/51 (74) 95 08/03/19 01:30 73 25 116/47 (70) 95 08/03/19 01:15 86 26 111/51 (71) 95 08/03/19 01:00 118/45 08/03/19 01:00 90 30 118/45 (69) 95 08/03/19 00:45 74 22 104/58 (73) 97 08/03/19 00:30 74 28 117/54 (75) 96 08/03/19 00:15 80 34 119/103 (108) 97 08/03/19 00:00 98.0 77 28 119/46 (70) 96 08/03/19 00:00 Room Air 08/03/19 00:00 119/46 08/03/19 00:00 77 08/02/19 23:45 80 22 109/59 (76) 95 08/02/19 23:30 104 29 117/80 (92) 93 08/02/19 23:15 74 30 125/56 (79) 96 08/02/19 23:00 76 33 128/55 (79) 97 08/02/19 23:00 128/55 08/02/19 22:45 75 29 116/55 (75) 96 08/02/19 22:30 59 23 131/47 (75) 96 08/02/19 22:15 74 27 129/58 (81) 97 08/02/19 22:00 125/51 08/02/19 22:00 64 26 125/51 (75) 96 08/02/19 21:45 79 26 136/59 (84) 97 08/02/19 21:30 64 29 132/56 (81) 97 08/02/19 21:15 64 28 123/62 (82) 97 08/02/19 21:00 112/63 08/02/19 21:00 71 31 112/63 (79) 97 08/02/19 20:45 67 35 102/55 (71) 97 08/02/19 20:30 68 26 111/56 (74) 97 08/02/19 20:15 69 31 124/54 (77) 96 08/02/19 20:00 84 08/02/19 20:00 97.5 84 28 128/67 (87) 96 08/02/19 20:00 Room Air 08/02/19 20:00 128/67 08/02/19 19:19 71 19 97 Room Air 21 08/02/19 19:19 97 Room Air 21 08/02/19 19:00 127/66 08/02/19 19:00 70 26 127/66 (86) 96 08/02/19 18:30 69 26 125/59 (81) 97 08/02/19 18:00 72 31 112/53 (72) 98 08/02/19 18:00 112/53 08/02/19 17:30 68 30 121/52 (75) 97 08/02/19 17:00 71 24 120/54 (76) 97 08/02/19 17:00 141/53 08/02/19 16:30 57 22 112/46 (68) 97 08/02/19 16:26 105/66 08/02/19 16:00 59 08/02/19 16:00 98.7 65 22 97/83 (88) 98 08/02/19 16:00 105/66 08/02/19 16:00 105/66 08/02/19 16:00 105/66 08/02/19 16:00 Room Air 08/02/19 15:30 85 24 132/72 (92) 98 08/02/19 15:00 107/53 08/02/19 15:00 107/53 08/02/19 15:00 107/53 08/02/19 15:00 75 28 113/43 (66) 97 08/02/19 14:45 113/43 08/02/19 14:45 113/43 08/02/19 14:45 113/43 08/02/19 14:30 78 32 106/54 (71) 97 08/02/19 14:30 129/51 19 14:30 129/51 08/02/19 14:30 129/51 19 14:15 117/58 08/02/19 14:15 117/58 08/02/19 14:15 117/58 08/02/19 14:00 59 22 148/69 (95) 96 08/02/19 14:00 128/52 08/02/19 14:00 128/52 08/02/19 14:00 128/52 08/02/19 13:45 148/69 08/02/19 13:45 148/69 08/02/19 13:45 148/69 08/02/19 13:30 66 34 108/52 (70) 97 08/02/19 13:00 78 32 104/49 (67) 98 08/02/19 13:00 90/46 08/02/19 13:00 90/46 08/02/19 13:00 90/46 08/02/19 12:30 82 26 98/48 (65) 98 08/02/19 12:00 98.8 70 25 102/38 (59) 96 08/02/19 12:00 102/38 08/02/19 12:00 102/38 08/02/19 12:00 102/38 08/02/19 12:00 Room Air 08/02/19 12:00 76 08/02/19 11:30 79 23 145/56 (85) 98 08/02/19 11:00 72 23 106/63 (77) 97 08/02/19 11:00 145/56 08/02/19 11:00 145/56 08/02/19 11:00 145/56 08/02/19 10:30 66 22 122/60 (80) 97 08/02/19 10:00 65 24 132/65 (87) 97 08/02/19 10:00 130/62 08/02/19 09:30 66 20 112/57 (75) 98 Intake and Output 08/02/19 08/03/19 19:00 07:00 Intake Total 2825.625 ml 2071.25 ml Output Total 2275 ml 1875 ml Balance 550.625 ml 196.25 ml Intake Free Water 100 ml IV Total 2120.625 ml 1686.25 ml Tube Feeding 605 ml 385 ml Output Urine Total 2275 ml 1875 ml # Bowel Movements 1 4 Laboratory Tests 08/03/19 02:45: White Blood Count 9.5, Red Blood Count 3.35L, Hemoglobin 10.7L, Hematocrit 31.3L , Mean Corpuscular Volume 93, Mean Corpuscular Hemoglobin 32.0H, Mean Corpuscular Hemoglobin Concent 34.3, Red Cell Distribution Width 14.6, Platelet Count 293, Mean Platelet Volume 6.4L, Neutrophils (%) (Auto) 80.0H, Lymphocytes (%) (Auto) 13.3L, Monocytes (%) (Auto) 3.3, Eosinophils (%) (Auto) 2.2, Basophils (%) (Auto) 1.2, Sodium Level 140, Potassium Level 3.3L, Chloride Level 108H, Carbon Dioxide Level 27, Anion Gap 5, Blood Urea Nitrogen 7, Creatinine 0.6, Estimat Glomerular Filtration Rate > 60, Glucose Level 98, Calcium Level 7.7L, Total Bilirubin 0.7, Aspartate Amino Transf (AST/SGOT) 330H , Alanine Aminotransferase (ALT/SGPT) 591H, Alkaline Phosphatase 172H, Total Protein 6.6, Albumin 1.8L, Globulin 4.8, Albumin/Globulin Ratio 0.4L, Alpha Fetoprotein [Pending] Height (Feet): 5 Height (Inches): 4.00 Weight (Pounds): 112 Objective General Appearance: no apparent distress, awake, non verbal Head: normocephalic, atraumatic Eyes: bilateral PERRL ENT: dry mucus membranes Neck: supple, no jvd Respiratory: rhonchi Cardiovascular : regular rate, rhythm, no m/r/g, ext: No edema Gastrointestinal: non tender, soft, +peg, Open blood blister in close proximity to GT . Musculoskeletal: moving extremities, muscle atrophy , +picc Neurologic: unable to assess, due to not following commands Skin: stage 2 ulcer right heel Matty Hernandez M.D. Aug 03, 2019 09:20
--- NOTE | 2019-08-03 10:10 | General Progress Note ---
Assessment/Plan Status: other - critical Assessment/Plan: GI: Plan Problems: (1) Hepatitis B (2) Iron deficiency anemia (3) GERD (gastroesophageal reflux disease) (4) Down's syndrome (constipation) Plan rising LFTs 2/2 to Hepatitis B GT dependent constipation start patient on Lamivudine 100mg GT BID >> discussed with pharmacist, non- formulary will need script for outpatient treatment Hep B DNA>>> pending GTF anemia panel prn transfusions PPI repeat liver function tests>>> improving colace and mirakax lactulose mineral oil per GT Subjective ROS Limited/Unobtainable: No Allergies: Coded Allergies: KETAMINE (Verified Allergy, Unknown, 05/29/19) NSAIDS (NON-STEROIDAL ANTI-INFLAMMA (Verified Allergy, Unknown, 05/29/19) Objective Last 24 Hour Vital Signs Date Time Temp Pulse Resp B/P (MAP) Pulse Ox O2 Delivery O2 Flow Rate FiO2 08/03/19 09:15 93 26 102/44 (63) 94 08/03/19 09:00 102 32 100/51 (67) 93 08/03/19 08:45 89 22 105/45 (65) 94 08/03/19 08:30 93 28 99/46 (63) 94 08/03/19 08:15 93 39 97/44 (61) 92 08/03/19 08:00 94 08/03/19 08:00 88 30 102/45 (64) 94 08/03/19 08:00 Room Air 08/03/19 07:45 100 22 103/50 (67) 92 08/03/19 07:30 80 28 101/37 (58) 92 08/03/19 07:15 106 22 103/49 (67) 96 08/03/19 07:00 99.6 102 29 106/47 (66) 93 08/03/19 06:00 120/49 08/03/19 05:45 98 30 117/53 (74) 92 08/03/19 05:30 77 19 114/50 (71) 96 08/03/19 05:15 90 32 114/51 (72) 94 08/03/19 05:00 101/44 08/03/19 05:00 96 31 101/44 (63) 94 08/03/19 04:45 87 25 106/50 (68) 90 08/03/19 04:37 107/43 08/03/19 04:30 107 34 107/43 (64) 91 08/03/19 04:15 109 24 98/47 (64) 91 08/03/19 04:00 100.0 111 26 113/57 (75) 92 08/03/19 04:00 Room Air 08/03/19 04:00 113/57 08/03/19 04:00 105 08/03/19 03:45 102 21 92/51 (65) 92 08/03/19 03:30 109 25 109/62 (78) 90 08/03/19 03:15 119 30 110/55 (73) 91 08/03/19 03:00 116/59 08/03/19 03:00 94 30 116/59 (78) 94 08/03/19 02:45 93 29 120/60 (80) 95 08/03/19 02:30 98 32 102/56 (71) 94 08/03/19 02:15 112 34 118/51 (73) 93 08/03/19 02:00 95 31 106/57 (73) 93 08/03/19 02:00 106/57 08/03/19 01:45 92 33 120/51 (74) 95 08/03/19 01:30 73 25 116/47 (70) 95 08/03/19 01:15 86 26 111/51 (71) 95 08/03/19 01:00 118/45 08/03/19 01:00 90 30 118/45 (69) 95 08/03/19 00:45 74 22 104/58 (73) 97 08/03/19 00:30 74 28 117/54 (75) 96 08/03/19 00:15 80 34 119/103 (108) 97 08/03/19 00:00 98.0 77 28 119/46 (70) 96 08/03/19 00:00 Room Air 08/03/19 00:00 119/46 08/03/19 00:00 77 08/02/19 23:45 80 22 109/59 (76) 95 08/02/19 23:30 104 29 117/80 (92) 93 08/02/19 23:15 74 30 125/56 (79) 96 08/02/19 23:00 76 33 128/55 (79) 97 08/02/19 23:00 128/55 08/02/19 22:45 75 29 116/55 (75) 96 08/02/19 22:30 59 23 131/47 (75) 96 08/02/19 22:15 74 27 129/58 (81) 97 08/02/19 22:00 125/51 08/02/19 22:00 64 26 125/51 (75) 96 08/02/19 21:45 79 26 136/59 (84) 97 08/02/19 21:30 64 29 132/56 (81) 97 08/02/19 21:15 64 28 123/62 (82) 97 08/02/19 21:00 112/63 08/02/19 21:00 71 31 112/63 (79) 97 08/02/19 20:45 67 35 102/55 (71) 97 08/02/19 20:30 68 26 111/56 (74) 97 08/02/19 20:15 69 31 124/54 (77) 96 08/02/19 20:00 84 08/02/19 20:00 97.5 84 28 128/67 (87) 96 08/02/19 20:00 Room Air 08/02/19 20:00 128/67 08/02/19 19:19 71 19 97 Room Air 21 08/02/19 19:19 97 Room Air 21 08/02/19 19:00 127/66 08/02/19 19:00 70 26 127/66 (86) 96 08/02/19 18:30 69 26 125/59 (81) 97 08/02/19 18:00 72 31 112/53 (72) 98 08/02/19 18:00 112/53 08/02/19 17:30 68 30 121/52 (75) 97 08/02/19 17:00 71 24 120/54 (76) 97 08/02/19 17:00 141/53 08/02/19 16:30 57 22 112/46 (68) 97 08/02/19 16:26 105/66 08/02/19 16:00 59 08/02/19 16:00 98.7 65 22 97/83 (88) 98 08/02/19 16:00 105/66 08/02/19 16:00 105/66 08/02/19 16:00 105/66 08/02/19 16:00 Room Air 12/15/19 15:30 85 24 132/72 (92) 98 08/02/19 15:00 107/53 08/02/19 15:00 107/53 08/02/19 15:00 107/53 08/02/19 15:00 75 28 113/43 (66) 97 08/02/19 14:45 113/43 08/02/19 14:45 113/43 08/02/19 14:45 113/43 08/02/19 14:30 78 32 106/54 (71) 97 08/02/19 14:30 129/51 08/02/19 14:30 129/51 08/02/19 14:30 129/51 08/02/19 14:15 117/58 08/02/19 14:15 117/58 08/02/19 14:15 117/58 08/02/19 14:00 59 22 148/69 (95) 96 08/02/19 14:00 128/52 08/02/19 14:00 128/52 08/02/19 14:00 128/52 08/02/19 13:45 148/69 08/02/19 13:45 148/69 08/02/19 13:45 148/69 08/02/19 13:30 66 34 108/52 (70) 97 08/02/19 13:00 78 32 104/49 (67) 98 08/02/19 13:00 90/46 08/02/19 13:00 90/46 08/02/19 13:00 90/46 08/02/19 12:30 82 26 98/48 (65) 98 08/02/19 12:00 98.8 70 25 102/38 (59) 96 08/02/19 12:00 102/38 08/02/19 12:00 102/38 08/02/19 12:00 102/38 08/02/19 12:00 Room Air 08/02/19 12:00 76 08/02/19 11:30 79 23 145/56 (85) 98 08/02/19 11:00 72 23 106/63 (77) 97 08/02/19 11:00 145/56 08/02/19 11:00 145/56 08/02/19 11:00 145/56 08/02/19 10:30 66 22 122/60 (80) 97 Intake and Output 08/02/19 08/03/19 19:00 07:00 Intake Total 2825.625 ml 2071.25 ml Output Total 2275 ml 1875 ml Balance 550.625 ml 196.25 ml Intake Free Water 100 ml IV Total 2120.625 ml 1686.25 ml Tube Feeding 605 ml 385 ml Output Urine Total 2275 ml 1875 ml # Bowel Movements 1 4 Laboratory Tests 08/03/19 02:45: White Blood Count 9.5, Red Blood Count 3.35L, Hemoglobin 10.7L, Hematocrit 31.3L , Mean Corpuscular Volume 93, Mean Corpuscular Hemoglobin 32.0H, Mean Corpuscular Hemoglobin Concent 34.3, Red Cell Distribution Width 14.6, Platelet Count 293, Mean Platelet Volume 6.4L, Neutrophils (%) (Auto) 80.0H, Lymphocytes (%) (Auto) 13.3L, Monocytes (%) (Auto) 3.3, Eosinophils (%) (Auto) 2.2, Basophils (%) (Auto) 1.2, Sodium Level 140, Potassium Level 3.3L, Chloride Level 108H, Carbon Dioxide Level 27, Anion Gap 5, Blood Urea Nitrogen 7, Creatinine 0.6, Estimat Glomerular Filtration Rate > 60, Glucose Level 98, Calcium Level 7.7L, Total Bilirubin 0.7, Aspartate Amino Transf (AST/SGOT) 330H , Alanine Aminotransferase (ALT/SGPT) 591H, Alkaline Phosphatase 172H, Total Protein 6.6, Albumin 1.8L, Globulin 4.8, Albumin/Globulin Ratio 0.4L, Alpha Fetoprotein [Pending] Height (Feet): 5 Height (Inches): 4.00 Weight (Pounds): 112 General Appearance: lethargic EENT: normal ENT inspection Neck: supple Cardiovascular: normal rate Respiratory/Chest: decreased breath sounds Abdomen: normal bowel sounds, non tender, soft Extremities: non-tender Lewis Rubio MD Aug 03, 2019 10:10
--- NOTE | 2019-08-03 12:49 | Pulmonolgy Critical Care Note ---
Critical Care - Asmt/Plan Problems: (1) Severe sepsis (2) Septic shock (3) Ulcer of right heel (4) Acute and chronic respiratory failure with hypoxia (5) CHF (congestive heart failure) (6) Iron deficiency anemia (7) GERD (gastroesophageal reflux disease) (8) HTN (hypertension) (9) Hypothyroid (10) HLD (hyperlipidemia) (11) Down's syndrome (12) Aortic stenosis (13) Acute on chronic respiratory failure with hypoxia and hypercapnia Respiratory: monitor respiratory rate Cardiac: continue pressors - Titrate NE to keep MAP > 55, continue to monitor HR/BP, other - Continue Midodrine 5 TID Renal: keep IV fluid Infectious Disease: continue antibiotics - Zosyn/Zyvox per ID Gastrointestinal: continue feedings/current rate Endocrine: monitor blood sugar Hematologic: monitor H/H Neurologic: keep patient comfortable Prophylaxis: Heparin - SQ Time Spent (Minutes): 30 Notes Reviewed: commissioner of relocation services, ID, GI, other - surgery Discussed with: nurses, consultants, other - DNAR/DNI Critical Care - Objective Last 24 Hour Vital Signs Date Time Temp Pulse Resp B/P (MAP) Pulse Ox O2 Delivery O2 Flow Rate FiO2 08/03/19 11:00 88 31 107/48 (67) 93 08/03/19 10:45 70 22 100/45 (63) 92 08/03/19 10:30 79 26 95/45 (62) 94 08/03/19 10:15 91 26 101/53 (69) 08/03/19 10:00 86 33 100/45 (63) 95 08/03/19 10:00 79 30 104/41 (62) 93 08/03/19 09:45 74 26 98/50 (66) 93 08/03/19 09:30 85 33 100/38 (58) 93 08/03/19 09:15 93 26 102/44 (63) 94 08/03/19 09:00 102 32 100/51 (67) 93 08/03/19 08:45 89 22 105/45 (65) 94 08/03/19 08:30 93 28 99/46 (63) 94 08/03/19 08:15 93 39 97/44 (61) 92 08/03/19 08:00 94 08/03/19 08:00 88 30 102/45 (64) 94 08/03/19 08:00 Room Air 08/03/19 07:45 100 22 103/50 (67) 92 08/03/19 07:30 80 28 101/37 (58) 92 08/03/19 07:15 106 22 103/49 (67) 96 08/03/19 07:00 99.6 102 29 106/47 (66) 93 08/03/19 06:00 120/49 08/03/19 05:45 98 30 117/53 (74) 92 08/03/19 05:30 77 19 114/50 (71) 96 08/03/19 05:15 90 32 114/51 (72) 94 08/03/19 05:00 101/44 08/03/19 05:00 96 31 101/44 (63) 94 08/03/19 04:45 87 25 106/50 (68) 90 08/03/19 04:37 107/43 08/03/19 04:30 107 34 107/43 (64) 91 08/03/19 04:15 109 24 98/47 (64) 91 08/03/19 04:00 100.0 111 26 113/57 (75) 92 08/03/19 04:00 Room Air 08/03/19 04:00 113/57 08/03/19 04:00 105 08/03/19 03:45 102 21 92/51 (65) 92 08/03/19 03:30 109 25 109/62 (78) 90 08/03/19 03:15 119 30 110/55 (73) 91 08/03/19 03:00 116/59 08/03/19 03:00 94 30 116/59 (78) 94 08/03/19 02:45 93 29 120/60 (80) 95 08/03/19 02:30 98 32 102/56 (71) 94 08/03/19 02:15 112 34 118/51 (73) 93 08/03/19 02:00 95 31 106/57 (73) 93 08/03/19 02:00 106/57 08/03/19 01:45 92 33 120/51 (74) 95 08/03/19 01:30 73 25 116/47 (70) 95 08/03/19 01:15 86 26 111/51 (71) 95 08/03/19 01:00 118/45 08/03/19 01:00 90 30 118/45 (69) 95 08/03/19 00:45 74 22 104/58 (73) 97 08/03/19 00:30 74 28 117/54 (75) 96 08/03/19 00:15 80 34 119/103 (108) 97 08/03/19 00:00 98.0 77 28 119/46 (70) 96 08/03/19 00:00 Room Air 08/03/19 00:00 119/46 08/03/19 00:00 77 08/02/19 23:45 80 22 109/59 (76) 95 08/02/19 23:30 104 29 117/80 (92) 93 08/02/19 23:15 74 30 125/56 (79) 96 08/02/19 23:00 76 33 128/55 (79) 97 08/02/19 23:00 128/55 08/02/19 22:45 75 29 116/55 (75) 96 08/02/19 22:30 59 23 131/47 (75) 96 08/02/19 22:15 74 27 129/58 (81) 97 08/02/19 22:00 125/51 08/02/19 22:00 64 26 125/51 (75) 96 08/02/19 21:45 79 26 136/59 (84) 97 08/02/19 21:30 64 29 132/56 (81) 97 08/02/19 21:15 64 28 123/62 (82) 97 08/02/19 21:00 112/63 08/02/19 21:00 71 31 112/63 (79) 97 08/02/19 20:45 67 35 102/55 (71) 97 08/02/19 20:30 68 26 111/56 (74) 97 08/02/19 20:15 69 31 124/54 (77) 96 08/02/19 20:00 84 08/02/19 20:00 97.5 84 28 128/67 (87) 96 08/02/19 20:00 Room Air 08/02/19 20:00 128/67 08/02/19 19:19 71 19 97 Room Air 21 08/02/19 19:19 97 Room Air 21 08/02/19 19:00 127/66 12/15/19 19:00 70 26 127/66 (86) 96 08/02/19 18:30 69 26 125/59 (81) 97 08/02/19 18:00 72 31 112/53 (72) 98 08/02/19 18:00 112/53 08/02/19 17:30 68 30 121/52 (75) 97 08/02/19 17:00 71 24 120/54 (76) 97 08/02/19 17:00 141/53 08/02/19 16:30 57 22 112/46 (68) 97 08/02/19 16:26 105/66 08/02/19 16:00 59 08/02/19 16:00 98.7 65 22 97/83 (88) 98 08/02/19 16:00 105/66 08/02/19 16:00 105/66 08/02/19 16:00 105/66 08/02/19 16:00 Room Air 08/02/19 15:30 85 24 132/72 (92) 98 08/02/19 15:00 107/53 08/02/19 15:00 107/53 08/02/19 15:00 107/53 08/02/19 15:00 75 28 113/43 (66) 97 08/02/19 14:45 113/43 08/02/19 14:45 113/43 08/02/19 14:45 113/43 08/02/19 14:30 78 32 106/54 (71) 97 08/02/19 14:30 129/51 08/02/19 14:30 129/51 08/02/19 14:30 129/51 08/02/19 14:15 117/58 08/02/19 14:15 117/58 08/02/19 14:15 117/58 08/02/19 14:00 59 22 148/69 (95) 96 08/02/19 14:00 128/52 08/02/19 14:00 128/52 08/02/19 14:00 128/52 08/02/19 13:45 148/69 08/02/19 13:45 148/69 08/02/19 13:45 148/69 08/02/19 13:30 66 34 108/52 (70) 97 08/02/19 13:00 78 32 104/49 (67) 98 08/02/19 13:00 08/02/19 13:00 08/02/19 13:00 Status: somnolent Condition: critical HEENT: atraumatic, normocephalic Neck: full ROM Lungs: clear Heart: HR/BP stable Abdomen: soft, non-tender, active bowel sounds, feeding tube Extremities: no C/C/E Decubiti: location - sac, stage - DTI Blood Sugars: BS controlled Critical Care - Subjective ROS Limited/Unobtainable: Yes ICU Day: 7 Intubation Day: N/A Interval Events: Remains on 2 mcg NE No change in MS Condition: critical IV Access: PICC EKG Rhythm: Sinus Rhythm FI02: 21 Sputum Amount: None Secretions: None Fluids: NS@125 Drips: NE@2 Tube Feeding Amount: 55 Residuals: 0 I&O: Intake and Output 08/02/19 08/03/19 19:00 07:00 Intake Total 2825.625 ml 2096.25 ml Output Total 2275 ml 1875 ml Balance 550.625 ml 221.25 ml Intake Free Water 100 ml IV Total 2120.625 ml 1711.25 ml Tube Feeding 605 ml 385 ml Output Urine Total 2275 ml 1875 ml # Bowel Movements 1 4 Subjective: GISELLE Labs: Laboratory Tests Test 08/03/19 02:45 White Blood Count 9.5 K/UL (4.8-10.8) Red Blood Count 3.35 M/UL (4.70-6.10) L Hemoglobin 10.7 G/DL (14.2-18.0) L Hematocrit 31.3 % (42.0-52.0) L Mean Corpuscular Volume 93 FL (80-99) Mean Corpuscular Hemoglobin 32.0 PG (27.0-31.0) H Mean Corpuscular Hemoglobin Concent 34.3 G/DL (32.0-36.0) Red Cell Distribution Width 14.6 % (11.6-14.8) Platelet Count 293 K/UL (150-450) Mean Platelet Volume 6.4 FL (6.5-10.1) L Neutrophils (%) (Auto) 80.0 % (45.0-75.0) H Lymphocytes (%) (Auto) 13.3 % (20.0-45.0) L Monocytes (%) (Auto) 3.3 % (1.0-10.0) Eosinophils (%) (Auto) 2.2 % (0.0-3.0) Basophils (%) (Auto) 1.2 % (0.0-2.0) Sodium Level 140 MMOL/L (136-145) Potassium Level 3.3 MMOL/L (3.5-5.1) L Chloride Level 108 MMOL/L (98-107) H Carbon Dioxide Level 27 MMOL/L (21-32) Anion Gap 5 mmol/L (5-15) Blood Urea Nitrogen 7 mg/dL (7-18) Creatinine 0.6 MG/DL (0.55-1.30) Estimat Glomerular Filtration Rate > 60 mL/min (>60) Glucose Level 98 MG/DL (74-106) Calcium Level 7.7 MG/DL (8.5-10.1) L Total Bilirubin 0.7 MG/DL (0.2-1.0) Aspartate Amino Transf (AST/SGOT) 330 U/L (15-37) H Alanine Aminotransferase (ALT/SGPT) 591 U/L (12-78) H Alkaline Phosphatase 172 U/L (46-116) H Total Protein 6.6 G/DL (6.4-8.2) Albumin 1.8 G/DL (3.4-5.0) L Globulin 4.8 g/dL Albumin/Globulin Ratio 0.4 (1.0-2.7) L Alpha Fetoprotein Pending Yovani Luevano MD Aug 03, 2019 12:49
--- NOTE | 2019-08-03 13:12 | Infectious Diseases Prog Note ---
Assessment/Plan Assessment/Plan ASSESSMENT: 1. 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 The patient has a history of Down syndrome. 3. Wound care protocol, wounds do not look acutely infected. 4. Diastolic CHF. 5. Hypertension. 6. Hyperlipidemia. 7. Anemia. 8. Hypothyroidism 9. GERD. 10. Aortic stenosis. 11. Dysphagia and G-tube. 12. Allergies to ketamine and NSAIDs. 13. Social history is negative. 14. Family history is noncontributory. 15. MAR was noted. 16. Case discussed with RN. 17. ICU care. 18. The patient also has elevated LFTs. I think an abdominal ultrasound has been ordered, this most likely is from septic shock. 19. Continue treatment per primary consultants and ICU care and nursing staff. 20. 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 Subjective Constitutional: Denies: fever HEENT: Reports: congestion - less Respiratory: Reports: shortness of breath - less Cardiovascular: Reports: other - less pressors Gastrointestinal/Abdominal: Denies: nausea, vomiting, diarrhea Neurologic: Reports: other - no sz Allergies: Coded Allergies: KETAMINE (Verified Allergy, Unknown, 05/29/19) NSAIDS (NON-STEROIDAL ANTI-INFLAMMA (Verified Allergy, Unknown, 05/29/19) Objective Vital Signs Last 24 Hour Vital Signs Date Time Temp Pulse Resp B/P (MAP) Pulse Ox O2 Delivery O2 Flow Rate FiO2 08/03/19 13:00 88 32 99/47 (64) 95 08/03/19 12:45 75 33 96/42 (60) 92 08/03/19 12:30 80 32 92/46 (61) 97 08/03/19 12:15 87 24 110/46 (67) 94 08/03/19 12:00 Room Air 08/03/19 12:00 98.8 76 24 107/47 (67) 90 08/03/19 11:45 85 28 97/48 (64) 93 08/03/19 11:30 86 30 105/47 (66) 93 08/03/19 11:15 71 25 91/39 (56) 91 08/03/19 11:00 88 31 107/48 (67) 93 08/03/19 10:45 70 22 100/45 (63) 92 08/03/19 10:30 79 26 95/45 (62) 94 08/03/19 10:15 91 26 101/53 (69) 08/03/19 10:00 86 33 100/45 (63) 95 08/03/19 10:00 79 30 104/41 (62) 93 08/03/19 09:45 74 26 98/50 (66) 93 08/03/19 09:30 85 33 100/38 (58) 93 08/03/19 09:15 93 26 102/44 (63) 94 08/03/19 09:00 102 32 100/51 (67) 93 08/03/19 08:45 89 22 105/45 (65) 94 08/03/19 08:30 93 28 99/46 (63) 94 08/03/19 08:15 93 39 97/44 (61) 92 08/03/19 08:00 94 08/03/19 08:00 88 30 102/45 (64) 94 08/03/19 08:00 Room Air 08/03/19 07:45 100 22 103/50 (67) 92 08/03/19 07:30 80 28 101/37 (58) 92 08/03/19 07:15 106 22 103/49 (67) 96 08/03/19 07:00 99.6 102 29 106/47 (66) 93 08/03/19 06:00 120/49 08/03/19 05:45 98 30 117/53 (74) 92 08/03/19 05:30 77 19 114/50 (71) 96 08/03/19 05:15 90 32 114/51 (72) 94 08/03/19 05:00 101/44 08/03/19 05:00 96 31 101/44 (63) 94 08/03/19 04:45 87 25 106/50 (68) 90 08/03/19 04:37 107/43 08/03/19 04:30 107 34 107/43 (64) 91 08/03/19 04:15 109 24 98/47 (64) 91 08/03/19 04:00 100.0 111 26 113/57 (75) 92 08/03/19 04:00 Room Air 08/03/19 04:00 113/57 08/03/19 04:00 105 08/03/19 03:45 102 21 92/51 (65) 92 08/03/19 03:30 109 25 109/62 (78) 90 08/03/19 03:15 119 30 110/55 (73) 91 08/03/19 03:00 116/59 08/03/19 03:00 94 30 116/59 (78) 94 08/03/19 02:45 93 29 120/60 (80) 95 08/03/19 02:30 98 32 102/56 (71) 94 08/03/19 02:15 112 34 118/51 (73) 93 08/03/19 02:00 95 31 106/57 (73) 93 08/03/19 02:00 106/57 08/03/19 01:45 92 33 120/51 (74) 95 08/03/19 01:30 73 25 116/47 (70) 95 08/03/19 01:15 86 26 111/51 (71) 95 08/03/19 01:00 118/45 08/03/19 01:00 90 30 118/45 (69) 95 08/03/19 00:45 74 22 104/58 (73) 97 08/03/19 00:30 74 28 117/54 (75) 96 08/03/19 00:15 80 34 119/103 (108) 97 08/03/19 00:00 98.0 77 28 119/46 (70) 96 08/03/19 00:00 Room Air 08/03/19 00:00 119/46 08/03/19 00:00 77 08/02/19 23:45 80 22 109/59 (76) 95 08/02/19 23:30 104 29 117/80 (92) 93 08/02/19 23:15 74 30 125/56 (79) 96 08/02/19 23:00 76 33 128/55 (79) 97 08/02/19 23:00 128/55 08/02/19 22:45 75 29 116/55 (75) 96 08/02/19 22:30 59 23 131/47 (75) 96 08/02/19 22:15 74 27 129/58 (81) 97 08/02/19 22:00 125/51 08/02/19 22:00 64 26 125/51 (75) 96 08/02/19 21:45 79 26 136/59 (84) 97 08/02/19 21:30 64 29 132/56 (81) 97 08/02/19 21:15 64 28 123/62 (82) 97 08/02/19 21:00 112/63 08/02/19 21:00 71 31 112/63 (79) 97 08/02/19 20:45 67 35 102/55 (71) 97 08/02/19 20:30 68 26 111/56 (74) 97 08/02/19 20:15 69 31 124/54 (77) 96 08/02/19 20:00 84 08/02/19 20:00 97.5 84 28 128/67 (87) 96 08/02/19 20:00 Room Air 08/02/19 20:00 128/67 08/02/19 19:19 71 19 97 Room Air 21 08/02/19 19:19 97 Room Air 21 08/02/19 19:00 127/66 08/02/19 19:00 70 26 127/66 (86) 96 08/02/19 18:30 69 26 125/59 (81) 97 08/02/19 18:00 72 31 112/53 (72) 98 08/02/19 18:00 112/53 08/02/19 17:30 68 30 121/52 (75) 97 08/02/19 17:00 71 24 120/54 (76) 97 08/02/19 17:00 141/53 08/02/19 16:30 57 22 112/46 (68) 97 08/02/19 16:26 105/66 08/02/19 16:00 59 08/02/19 16:00 98.7 65 22 97/83 (88) 98 08/02/19 16:00 105/66 08/02/19 16:00 105/66 08/02/19 16:00 105/66 08/02/19 16:00 Room Air 08/02/19 15:30 85 24 132/72 (92) 98 12/15/19 15:00 107/53 12/15/19 15:00 107/53 08/02/19 15:00 107/53 08/02/19 15:00 75 28 113/43 (66) 97 08/02/19 14:45 113/43 08/02/19 14:45 113/43 08/02/19 14:45 113/43 08/02/19 14:30 78 32 106/54 (71) 97 08/02/19 14:30 129/51 08/02/19 14:30 129/51 08/02/19 14:30 129/51 08/02/19 14:15 117/58 08/02/19 14:15 117/58 08/02/19 14:15 117/58 08/02/19 14:00 59 22 148/69 (95) 96 08/02/19 14:00 128/52 08/02/19 14:00 128/52 08/02/19 14:00 128/52 08/02/19 13:45 148/69 08/02/19 13:45 148/69 08/02/19 13:45 148/69 08/02/19 13:30 66 34 108/52 (70) 97 Height (Feet): 5 Height (Inches): 4.00 Weight (Pounds): 112 General Appearance: no acute distress HEENT: normocephalic, atraumatic, anicteric Respiratory/Chest: crackles/rales, rhonchi - bilaterally Cardiovascular: normal rate, regular rhythm, no gallop/murmur Abdomen: normal bowel sounds, soft, non tender, no organomegaly Objective Procedure: XRAY Chest 1v Indication: Shortness of breath Technique: XRAY Chest 1v Comparison: 07/29/2019 Chest x-ray - 07/31/19 - Findings: Heart size and mediastinal contours are stable. Patient is rotated to the right. There are increasing opacities at the lung bases, right greater than left. Left superhilar atelectasis or scarring is unchanged. There is an development of a small right-sided pleural effusion. No radiographically appreciable pneumothorax. Osseous structures stable. Multiple surgical clips noted projecting over the region of the right elbow. Impression: Limited exam due to suboptimal positioning. Worsening aeration with increasing bilateral airspace opacities, right greater than left. Interval development of a small right pleural effusion. Chest x-ray - 08/02/19 - IMPRESSION: 1. Interval placement of right PICC line to the cavoatrial junction. 2. Small right pleural effusion. Query tiny left pleural effusion. 3. Bibasilar lung atelectasis/airspace disease. Interstitial thickening. Laboratory Tests Test 08/03/19 02:45 White Blood Count 9.5 K/UL (4.8-10.8) Red Blood Count 3.35 M/UL (4.70-6.10) L Hemoglobin 10.7 G/DL (14.2-18.0) L Hematocrit 31.3 % (42.0-52.0) L Mean Corpuscular Volume 93 FL (80-99) Mean Corpuscular Hemoglobin 32.0 PG (27.0-31.0) H Mean Corpuscular Hemoglobin Concent 34.3 G/DL (32.0-36.0) Red Cell Distribution Width 14.6 % (11.6-14.8) Platelet Count 293 K/UL (150-450) Mean Platelet Volume 6.4 FL (6.5-10.1) L Neutrophils (%) (Auto) 80.0 % (45.0-75.0) H Lymphocytes (%) (Auto) 13.3 % (20.0-45.0) L Monocytes (%) (Auto) 3.3 % (1.0-10.0) Eosinophils (%) (Auto) 2.2 % (0.0-3.0) Basophils (%) (Auto) 1.2 % (0.0-2.0) Sodium Level 140 MMOL/L (136-145) Potassium Level 3.3 MMOL/L (3.5-5.1) L Chloride Level 108 MMOL/L (98-107) H Carbon Dioxide Level 27 MMOL/L (21-32) Anion Gap 5 mmol/L (5-15) Blood Urea Nitrogen 7 mg/dL (7-18) Creatinine 0.6 MG/DL (0.55-1.30) Estimat Glomerular Filtration Rate > 60 mL/min (>60) Glucose Level 98 MG/DL (74-106) Calcium Level 7.7 MG/DL (8.5-10.1) L Total Bilirubin 0.7 MG/DL (0.2-1.0) Aspartate Amino Transf (AST/SGOT) 330 U/L (15-37) H Alanine Aminotransferase (ALT/SGPT) 591 U/L (12-78) H Alkaline Phosphatase 172 U/L (46-116) H Total Protein 6.6 G/DL (6.4-8.2) Albumin 1.8 G/DL (3.4-5.0) L Globulin 4.8 g/dL Albumin/Globulin Ratio 0.4 (1.0-2.7) L Alpha Fetoprotein Pending Current Medications Medications (Trade) Dose Ordered Sig/Kendra Route PRN Reason Start Time Stop Time Status Last Admin Dose Admin Acetaminophen (Tylenol) 650 mg Q4H PRN ORAL Mild Pain (Pain Scale 1-3) 07/28/19 12:15 08/27/19 12:14 07/31/19 20:17 Acetaminophen (Tylenol) 650 mg Q4H PRN ORAL fever 07/28/19 12:15 08/27/19 12:14 Chlorhexidine Gluconate (Judi-Hex 2%) 1 applic DAILY@2000 TOPIC 07/30/19 20:00 08/29/19 19:59 08/02/19 20:52 Dextrose (Dextrose 50%) 25 ml Q30M PRN IV Hypoglycemia 07/28/19 12:15 08/27/19 12:14 Dextrose (Dextrose 50%) 50 ml Q30M PRN IV Hypoglycemia 07/28/19 12:15 08/27/19 12:14 Docusate Sodium (Colace) 100 mg BID GT 08/01/19 09:00 08/31/19 08:59 08/03/19 08:47 Heparin Sodium (Porcine) (Heparin 5000 units/ml) 5,000 units EVERY 12 HOURS SUBQ 07/28/19 21:00 08/27/19 20:59 08/03/19 08:50 Hydromorphone HCl (Dilaudid) 1 mg Q4H PRN IVP Moderate Pain (Pain Scale 4-6) 07/28/19 12:15 08/04/19 12:14 Hydromorphone HCl (Dilaudid) 2 mg Q4H PRN IVP Severe Pain (Pain Scale 7-10) 07/28/19 12:15 08/04/19 12:14 Lactulose (Cephulac) 20 gm THREE TIMES A DAY GT 08/02/19 09:00 09/01/19 08:59 08/03/19 08:47 Levothyroxine Sodium (Synthroid) 50 mcg DAILY@0630 ORAL 07/30/19 06:30 08/29/19 06:29 08/03/19 06:09 Linezolid 300 ml @ 300 mls/hr Q12HR IVPB 08/02/19 17:00 08/09/19 16:59 08/03/19 08:49 Midodrine (Pro-Amatine) 5 mg THREE TIMES A DAY GT 08/02/19 09:00 08/29/19 12:59 08/03/19 08:48 Mineral Oil (Mineral Oil) 30 ml DAILY PRN ORAL Constipation 08/02/19 08:00 09/01/19 07:59 Norepinephrine Bitartrate 4 mg/ Dextrose 250 ml @ 0 mls/hr Q24H IV 07/31/19 18:00 08/30/19 17:59 08/03/19 04:37 Ondansetron HCl (Zofran) 4 mg Q4H PRN IVP Nausea & Vomiting 08/03/19 03:30 09/02/19 03:29 08/03/19 03:27 Piperacillin Sod/ Tazobactam Sod 3.375 gm/Dextrose 100 ml @ 25 mls/hr EVERY 8 HOURS IVPB 08/02/19 22:00 08/07/19 21:59 08/03/19 05:34 Polyethylene Glycol (Miralax) 17 gm BEDTIME ORAL 08/01/19 21:00 08/31/19 20:59 08/02/19 20:54 Sodium Chloride 1,000 ml @ 125 mls/hr Q8H IV 07/29/19 09:00 08/28/19 08:59 08/03/19 08:54 Rafia Rand MD Aug 03, 2019 13:12
--- NOTE | 2019-08-03 16:31 | Surgery Progress Note ---
Surgery Progress Note Subjective Symptoms: improved, tolerating diet, voiding well, passing flatus, BM, pain decreased Objective Last 24 Hour Vital Signs Date Time Temp Pulse Resp B/P (MAP) Pulse Ox O2 Delivery O2 Flow Rate FiO2 08/03/19 15:00 79 34 115/46 (69) 96 08/03/19 14:00 87 30 96/35 (55) 96 08/03/19 13:30 82 29 99/37 (57) 95 08/03/19 13:00 88 32 99/47 (64) 95 08/03/19 12:45 75 33 96/42 (60) 92 08/03/19 12:30 80 32 92/46 (61) 97 08/03/19 12:15 87 24 110/46 (67) 94 08/03/19 12:00 Room Air 08/03/19 12:00 69 08/03/19 12:00 98.8 76 24 107/47 (67) 90 08/03/19 11:45 85 28 97/48 (64) 93 08/03/19 11:30 86 30 105/47 (66) 93 08/03/19 11:15 71 25 91/39 (56) 91 08/03/19 11:00 88 31 107/48 (67) 93 08/03/19 10:45 70 22 100/45 (63) 92 08/03/19 10:30 79 26 95/45 (62) 94 08/03/19 10:15 91 26 101/53 (69) 08/03/19 10:00 86 33 100/45 (63) 95 08/03/19 10:00 79 30 104/41 (62) 93 08/03/19 09:45 74 26 98/50 (66) 93 08/03/19 09:30 85 33 100/38 (58) 93 08/03/19 09:15 93 26 102/44 (63) 94 08/03/19 09:00 102 32 100/51 (67) 93 08/03/19 08:45 89 22 105/45 (65) 94 08/03/19 08:30 93 28 99/46 (63) 94 08/03/19 08:15 93 39 97/44 (61) 92 08/03/19 08:00 94 08/03/19 08:00 88 30 102/45 (64) 94 08/03/19 08:00 Room Air 08/03/19 07:45 100 22 103/50 (67) 92 08/03/19 07:30 80 28 101/37 (58) 92 08/03/19 07:15 106 22 103/49 (67) 96 08/03/19 07:00 99.6 102 29 106/47 (66) 93 08/03/19 06:00 120/49 08/03/19 05:45 98 30 117/53 (74) 92 08/03/19 05:30 77 19 114/50 (71) 96 08/03/19 05:15 90 32 114/51 (72) 94 08/03/19 05:00 101/44 08/03/19 05:00 96 31 101/44 (63) 94 08/03/19 04:45 87 25 106/50 (68) 90 08/03/19 04:37 107/43 08/03/19 04:30 107 34 107/43 (64) 91 08/03/19 04:15 109 24 98/47 (64) 91 08/03/19 04:00 100.0 111 26 113/57 (75) 92 08/03/19 04:00 Room Air 08/03/19 04:00 113/57 08/03/19 04:00 105 08/03/19 03:45 102 21 92/51 (65) 92 08/03/19 03:30 109 25 109/62 (78) 90 08/03/19 03:15 119 30 110/55 (73) 91 08/03/19 03:00 116/59 08/03/19 03:00 94 30 116/59 (78) 94 08/03/19 02:45 93 29 120/60 (80) 95 08/03/19 02:30 98 32 102/56 (71) 94 08/03/19 02:15 112 34 118/51 (73) 93 08/03/19 02:00 95 31 106/57 (73) 93 08/03/19 02:00 106/57 08/03/19 01:45 92 33 120/51 (74) 95 08/03/19 01:30 73 25 116/47 (70) 95 08/03/19 01:15 86 26 111/51 (71) 95 12/16/19 01:00 118/45 08/03/19 01:00 90 30 118/45 (69) 95 08/03/19 00:45 74 22 104/58 (73) 97 08/03/19 00:30 74 28 117/54 (75) 96 08/03/19 00:15 80 34 119/103 (108) 97 08/03/19 00:00 98.0 77 28 119/46 (70) 96 08/03/19 00:00 Room Air 08/03/19 00:00 119/46 08/03/19 00:00 77 08/02/19 23:45 80 22 109/59 (76) 95 08/02/19 23:30 104 29 117/80 (92) 93 08/02/19 23:15 74 30 125/56 (79) 96 08/02/19 23:00 76 33 128/55 (79) 97 08/02/19 23:00 128/55 08/02/19 22:45 75 29 116/55 (75) 96 08/02/19 22:30 59 23 131/47 (75) 96 08/02/19 22:15 74 27 129/58 (81) 97 08/02/19 22:00 125/51 08/02/19 22:00 64 26 125/51 (75) 96 08/02/19 21:45 79 26 136/59 (84) 97 08/02/19 21:30 64 29 132/56 (81) 97 08/02/19 21:15 64 28 123/62 (82) 97 08/02/19 21:00 112/63 08/02/19 21:00 71 31 112/63 (79) 97 08/02/19 20:45 67 35 102/55 (71) 97 08/02/19 20:30 68 26 111/56 (74) 97 08/02/19 20:15 69 31 124/54 (77) 96 08/02/19 20:00 84 08/02/19 20:00 97.5 84 28 128/67 (87) 96 08/02/19 20:00 Room Air 08/02/19 20:00 128/67 08/02/19 19:19 71 19 97 Room Air 21 08/02/19 19:19 97 Room Air 21 08/02/19 19:00 127/66 08/02/19 19:00 70 26 127/66 (86) 96 08/02/19 18:30 69 26 125/59 (81) 97 08/02/19 18:00 72 31 112/53 (72) 98 08/02/19 18:00 112/53 08/02/19 17:30 68 30 121/52 (75) 97 08/02/19 17:00 71 24 120/54 (76) 97 08/02/19 17:00 141/53 I&O Intake and Output 08/02/19 08/03/19 19:00 07:00 Intake Total 2825.625 ml 2096.25 ml Output Total 2275 ml 1875 ml Balance 550.625 ml 221.25 ml Intake Free Water 100 ml IV Total 2120.625 ml 1711.25 ml Tube Feeding 605 ml 385 ml Output Urine Total 2275 ml 1875 ml # Bowel Movements 1 4 Dressing: other Wound: other Drains: other Cardiovascular: RSR Respiratory: decreased breath sounds Abdomen: soft, present bowel sounds, other, non-distended Extremities: no cyanosis Laboratory Tests Test 08/03/19 02:45 White Blood Count 9.5 K/UL (4.8-10.8) Red Blood Count 3.35 M/UL (4.70-6.10) L Hemoglobin 10.7 G/DL (14.2-18.0) L Hematocrit 31.3 % (42.0-52.0) L Mean Corpuscular Volume 93 FL (80-99) Mean Corpuscular Hemoglobin 32.0 PG (27.0-31.0) H Mean Corpuscular Hemoglobin Concent 34.3 G/DL (32.0-36.0) Red Cell Distribution Width 14.6 % (11.6-14.8) Platelet Count 293 K/UL (150-450) Mean Platelet Volume 6.4 FL (6.5-10.1) L Neutrophils (%) (Auto) 80.0 % (45.0-75.0) H Lymphocytes (%) (Auto) 13.3 % (20.0-45.0) L Monocytes (%) (Auto) 3.3 % (1.0-10.0) Eosinophils (%) (Auto) 2.2 % (0.0-3.0) Basophils (%) (Auto) 1.2 % (0.0-2.0) Sodium Level 140 MMOL/L (136-145) Potassium Level 3.3 MMOL/L (3.5-5.1) L Chloride Level 108 MMOL/L (98-107) H Carbon Dioxide Level 27 MMOL/L (21-32) Anion Gap 5 mmol/L (5-15) Blood Urea Nitrogen 7 mg/dL (7-18) Creatinine 0.6 MG/DL (0.55-1.30) Estimat Glomerular Filtration Rate > 60 mL/min (>60) Glucose Level 98 MG/DL (74-106) Calcium Level 7.7 MG/DL (8.5-10.1) L Total Bilirubin 0.7 MG/DL (0.2-1.0) Aspartate Amino Transf (AST/SGOT) 330 U/L (15-37) H Alanine Aminotransferase (ALT/SGPT) 591 U/L (12-78) H Alkaline Phosphatase 172 U/L (46-116) H Total Protein 6.6 G/DL (6.4-8.2) Albumin 1.8 G/DL (3.4-5.0) L Globulin 4.8 g/dL Albumin/Globulin Ratio 0.4 (1.0-2.7) L Alpha Fetoprotein Pending Plan Problems: (1) Septic shock Assessment & Plan: This is a 54-year-old male with multi-medical morbidities history of Down's who presents with hypotension, tachycardia, abnormal electrolytes, abnormal LFTs. Patient currently admitted to the intensive care unit for care and management. Abdominal ultrasound noted as below Does not seem to have intra-abdominal etiology of sepsis/SIRS We will continue with work-up Continue with IV fluid resuscitation Trend labs Hold on central venous catheter placement as patient is responsive to IV fluids. If requires pressors okay to use midline for a short period of time until peripherally inserted central venous catheter placed. Local wound care as below Once stable will resume nutritional goals Thank you will follow the recommendations Gallbladder is unremarkable, without stones, wall thickening, nor pericholecystic fluid. Sonographic Gamez's sign is negative. Common bile duct measures 5 mm in diameter. No intrahepatic biliary ductal dilatation. Liver demonstrates slightly coarsened echogenicity. No focal abnormality. Portal vein and hepatic veins are patent. Pancreas is unremarkable. Spleen is unremarkable. Left kidney measures left cm in length. Right kidney measures 11.2 cm length. Both kidneys demonstrate normal echogenicity. There is mild fullness to the right renal collecting system, and very mild left hydronephrosis No focal abnormality . Non-aneurysmal abdominal aorta . There is a right hip prosthesis which throws off streak artifact which may obscure pelvic pathology. There is also some image degradation due to respiratory motion artifact in the upper abdomen. Lack of enteric contrast limits assessment of the GI tract. The rectum is distended by stool, measuring 6.7 cm in diameter. No definite wall thickening or perirectal inflammation demonstrated. Considerable dense stool is also seen elsewhere within the colon. No evidence of colonic diverticulosis or diverticulitis. The appendix is normal. No small bowel distention. There is a gastrostomy which appears to be in good position. Lack of IV contrast limits assessment of the solid organs. The liver, gallbladder, bile ducts, pancreas, spleen, adrenals are all unremarkable. There is mild fullness to the bilateral renal collecting systems and ureters. No focal renal parenchymal abnormality. No renal or ureteral calculi demonstrated. The bladder is markedly distended. It demonstrates mild wall thickening. No pelvic mass or adenopathy. The lung bases demonstrate bronchial wall thickening and basilar atelectatic changes as well as possibly some bronchiectasis on the left. There may be trace pleural fluid bilaterally. There is a small anterior wall pericardial effusion which measures up to 7 mm in thickness. The bones demonstrate a compression fracture deformity of the T11 vertebral body. This results in about 30% height loss. This is in retrospect evident also on a prior chest CT of 06/03/2019 Alexis Ruffin Aug 03, 2019 16:31
[2019-08-03] MEDS: Dyna-Hex 2% Top Sol 2oz TOPIC SCH (20:49)
[2019-08-03] MEDS: Miralax 17gm pkt ORAL SCH (20:49)
--- NOTE | 2019-08-03 23:49 | Cardiology Progress Note ---
Assessment/Plan Assessment/Plan 1. Septic shock, off levophed gtt, continue midodrine. 2. History of supraventricular tachycardia, currently in SR. 3. Mild aortic stenosis 4. Moderate pulmonary HTN. 5. Mild LV diastolic dysfunction. Subjective Subjective Sinus rhythm at rate of 76. Off Levophed gtt. Objective Last 24 Hour Vital Signs Date Time Temp Pulse Resp B/P (MAP) Pulse Ox O2 Delivery O2 Flow Rate FiO2 08/03/19 23:00 76 27 90/28 (48) 96 08/03/19 22:00 73 26 92/45 (61) 100 08/03/19 21:00 59 21 91/38 (55) 97 08/03/19 20:08 95 Room Air 21 08/03/19 20:08 68 19 95 Room Air 21 08/03/19 20:00 Room Air 08/03/19 20:00 62 08/03/19 20:00 97.6 61 23 103/48 (66) 98 08/03/19 19:00 63 23 91/32 (51) 85 08/03/19 18:00 81 31 99/52 (68) 93 08/03/19 17:00 78 29 84/27 (46) 93 08/03/19 16:30 80 25 111/53 (72) 91 08/03/19 16:15 96 28 111/53 (72) 99 08/03/19 16:00 111/53 08/03/19 16:00 99.7 89 32 102/49 (66) 93 08/03/19 16:00 72 08/03/19 16:00 Room Air 08/03/19 15:45 68 30 109/37 (61) 94 08/03/19 15:30 70 23 104/37 (59) 93 08/03/19 15:15 76 31 115/46 (69) 95 08/03/19 15:00 79 34 115/46 (69) 96 08/03/19 15:00 115/46 08/03/19 14:45 80 35 108/51 (70) 95 08/03/19 14:30 75 31 100/47 (64) 96 08/03/19 14:15 71 20 105/39 (61) 95 08/03/19 14:00 86 32 96/35 (55) 96 08/03/19 14:00 87 30 96/35 (55) 96 08/03/19 14:00 105/39 08/03/19 13:30 82 29 99/37 (57) 95 08/03/19 13:00 88 32 99/47 (64) 95 08/03/19 13:00 99/7 08/03/19 12:45 75 33 96/42 (60) 92 08/03/19 12:30 80 32 92/46 (61) 97 08/03/19 12:15 87 24 110/46 (67) 94 08/03/19 12:00 Room Air 08/03/19 12:00 110/46 08/03/19 12:00 69 08/03/19 12:00 98.8 76 24 107/47 (67) 90 08/03/19 11:45 85 28 97/48 (64) 93 08/03/19 11:30 86 30 105/47 (66) 93 08/03/19 11:15 71 25 91/39 (56) 91 08/03/19 11:00 91/39 08/03/19 11:00 88 31 107/48 (67) 93 08/03/19 10:45 70 22 100/45 (63) 92 08/03/19 10:30 79 26 95/45 (62) 94 08/03/19 10:15 91 26 101/53 (69) 08/03/19 10:00 86 33 100/45 (63) 95 08/03/19 10:00 101/53 08/03/19 10:00 79 30 104/41 (62) 93 08/03/19 09:45 74 26 98/50 (66) 93 08/03/19 09:30 85 33 100/38 (58) 93 08/03/19 09:15 93 26 102/44 (63) 94 08/03/19 09:00 102/44 08/03/19 09:00 102 32 100/51 (67) 93 08/03/19 08:45 89 22 105/45 (65) 94 08/03/19 08:30 93 28 99/46 (63) 94 08/03/19 08:15 93 39 97/44 (61) 92 08/03/19 08:00 94 08/03/19 08:00 88 30 102/45 (64) 94 08/03/19 08:00 Room Air 08/03/19 08:00 97/44 08/03/19 07:45 100 22 103/50 (67) 92 08/03/19 07:30 80 28 101/37 (58) 92 08/03/19 07:15 106 22 103/49 (67) 96 08/03/19 07:00 99.6 102 29 106/47 (66) 93 08/03/19 07:00 103/49 08/03/19 06:00 120/49 08/03/19 05:45 98 30 117/53 (74) 92 08/03/19 05:30 77 19 114/50 (71) 96 08/03/19 05:15 90 32 114/51 (72) 94 08/03/19 05:00 101/44 08/03/19 05:00 96 31 101/44 (63) 94 08/03/19 04:45 87 25 106/50 (68) 90 08/03/19 04:37 107/43 08/03/19 04:30 107 34 107/43 (64) 91 08/03/19 04:15 109 24 98/47 (64) 91 08/03/19 04:00 100.0 111 26 113/57 (75) 92 08/03/19 04:00 Room Air 08/03/19 04:00 113/57 08/03/19 04:00 105 08/03/19 03:45 102 21 92/51 (65) 92 08/03/19 03:30 109 25 109/62 (78) 90 08/03/19 03:15 119 30 110/55 (73) 91 08/03/19 03:00 116/59 08/03/19 03:00 94 30 116/59 (78) 94 08/03/19 02:45 93 29 120/60 (80) 95 08/03/19 02:30 98 32 102/56 (71) 94 08/03/19 02:15 112 34 118/51 (73) 93 08/03/19 02:00 95 31 106/57 (73) 93 08/03/19 02:00 106/57 08/03/19 01:45 92 33 120/51 (74) 95 08/03/19 01:30 73 25 116/47 (70) 95 08/03/19 01:15 86 26 111/51 (71) 95 12/16/19 01:00 118/45 08/03/19 01:00 90 30 118/45 (69) 95 08/03/19 00:45 74 22 104/58 (73) 97 08/03/19 00:30 74 28 117/54 (75) 96 08/03/19 00:15 80 34 119/103 (108) 97 08/03/19 00:00 98.0 77 28 119/46 (70) 96 08/03/19 00:00 Room Air 08/03/19 00:00 119/46 08/03/19 00:00 77 08/02/19 23:45 80 22 109/59 (76) 95 Intake and Output 08/02/19 08/03/19 19:00 07:00 Intake Total 2825.625 ml 2232.50 ml Output Total 2275 ml 1875 ml Balance 550.625 ml 357.50 ml Intake Free Water 100 ml IV Total 2120.625 ml 1847.50 ml Tube Feeding 605 ml 385 ml Output Urine Total 2275 ml 1875 ml # Bowel Movements 1 4 2D Echo: EF 55%, JANETTE 1.8 c/m mod , Grade I LVDD, RVSP 49 c/w Mod Pul. HTN Laboratory Tests Test 08/03/19 02:45 White Blood Count 9.5 K/UL (4.8-10.8) Red Blood Count 3.35 M/UL (4.70-6.10) L Hemoglobin 10.7 G/DL (14.2-18.0) L Hematocrit 31.3 % (42.0-52.0) L Mean Corpuscular Volume 93 FL (80-99) Mean Corpuscular Hemoglobin 32.0 PG (27.0-31.0) H Mean Corpuscular Hemoglobin Concent 34.3 G/DL (32.0-36.0) Red Cell Distribution Width 14.6 % (11.6-14.8) Platelet Count 293 K/UL (150-450) Mean Platelet Volume 6.4 FL (6.5-10.1) L Neutrophils (%) (Auto) 80.0 % (45.0-75.0) H Lymphocytes (%) (Auto) 13.3 % (20.0-45.0) L Monocytes (%) (Auto) 3.3 % (1.0-10.0) Eosinophils (%) (Auto) 2.2 % (0.0-3.0) Basophils (%) (Auto) 1.2 % (0.0-2.0) Sodium Level 140 MMOL/L (136-145) Potassium Level 3.3 MMOL/L (3.5-5.1) L Chloride Level 108 MMOL/L (98-107) H Carbon Dioxide Level 27 MMOL/L (21-32) Anion Gap 5 mmol/L (5-15) Blood Urea Nitrogen 7 mg/dL (7-18) Creatinine 0.6 MG/DL (0.55-1.30) Estimat Glomerular Filtration Rate > 60 mL/min (>60) Glucose Level 98 MG/DL (74-106) Calcium Level 7.7 MG/DL (8.5-10.1) L Total Bilirubin 0.7 MG/DL (0.2-1.0) Aspartate Amino Transf (AST/SGOT) 330 U/L (15-37) H Alanine Aminotransferase (ALT/SGPT) 591 U/L (12-78) H Alkaline Phosphatase 172 U/L (46-116) H Total Protein 6.6 G/DL (6.4-8.2) Albumin 1.8 G/DL (3.4-5.0) L Globulin 4.8 g/dL Albumin/Globulin Ratio 0.4 (1.0-2.7) L Alpha Fetoprotein Pending Objective HEAD AND NECK: Shows no JVD or carotid bruits. LUNGS: Clear. CARDIOVASCULAR: Shows regular S1 and S2 with no gallops, murmurs or rubs. ABDOMEN: Status post G-tube. EXTREMITIES: No pitting edema. Valerio Oro MD Aug 03, 2019 23:49
[2019-08-04] VITALS (26 sets, daily range): BP systolic 79–114; BP diastolic 30–73
[2019-08-04 05:44] LABS: BASOPHILS % (AUTO) 0.9 % (0.0-2.0); EOSINOPHILS % (AUTO) 2.2 % (0.0-3.0); HEMATOCRIT 28.1 % (42.0-52.0); HEMOGLOBIN 9.5 G/DL (14.2-18.0); LYMPHOCYTES % (AUTO) 24.3 % (20.0-45.0); MEAN CORPUSCULAR VOLUME 94 FL (80-99); MONOCYTES % (AUTO) 4.1 % (1.0-10.0); NEUTROPHILS % (AUTO) 68.6 % (45.0-75.0); PLATELET COUNT 225 K/UL (150-450); RED BLOOD COUNT 2.98 M/UL (4.70-6.10); RED CELL DISTRIBUTION WIDTH 15.4 % (11.6-14.8); WHITE BLOOD COUNT 7.4 K/UL (4.8-10.8)
[2019-08-04 06:15] LABS: ALANINE AMINOTRANSFERASE 410 U/L (12-78); ALBUMIN 1.7 G/DL (3.4-5.0); ALBUMIN/GLOBULIN RATIO 0.4 (1.0-2.7); ALKALINE PHOSPHATASE 149 U/L (46-116); ANION GAP 1 mmol/L (5-15); ASPARTATE AMINO TRANSFERASE 211 U/L (15-37); BILIRUBIN,TOTAL 0.6 MG/DL (0.2-1.0); BLOOD UREA NITROGEN 7 mg/dL (7-18); CALCIUM 7.7 MG/DL (8.5-10.1); CARBON DIOXIDE 31 MMOL/L (21-32); CHLORIDE 109 MMOL/L (98-107); CREATININE 0.7 MG/DL (0.55-1.30); POTASSIUM 3.6 MMOL/L (3.5-5.1); SODIUM 141 MMOL/L (136-145)
--- NOTE | 2019-08-04 07:45 | General Progress Note ---
Assessment/Plan Status: stable, other - critical Assessment/Plan: GI: Plan Problems: (1) Hepatitis B (2) Iron deficiency anemia (3) GERD (gastroesophageal reflux disease) (4) Down's syndrome (constipation) Plan rising LFTs 2/2 to Hepatitis B GT dependent constipation start patient on Lamivudine 100mg GT BID >> discussed with pharmacist, non- formulary will need script for outpatient treatment Hep B DNA>>> pending GTF anemia panel prn transfusions PPI repeat liver function tests>>> improving colace and mirakax will dc lactulose and mineral oil given diarrhea now has rectal tube off pressors Subjective ROS Limited/Unobtainable: No Allergies: Coded Allergies: KETAMINE (Verified Allergy, Unknown, 05/29/19) NSAIDS (NON-STEROIDAL ANTI-INFLAMMA (Verified Allergy, Unknown, 05/29/19) Objective Last 24 Hour Vital Signs Date Time Temp Pulse Resp B/P (MAP) Pulse Ox O2 Delivery O2 Flow Rate FiO2 08/04/19 06:00 64 21 93/42 (59) 95 08/04/19 05:00 66 20 103/39 (60) 93 08/04/19 04:00 77 08/04/19 04:00 Room Air 08/04/19 04:00 97.5 86 22 92/73 (79) 93 08/04/19 03:00 72 23 92/37 (55) 89 08/04/19 02:00 70 23 92/30 (50) 92 08/04/19 01:00 84 27 95/42 (59) 93 08/04/19 00:00 98.4 73 28 91/42 (58) 95 08/04/19 00:00 77 08/04/19 00:00 Room Air 08/03/19 23:00 76 27 90/28 (48) 96 08/03/19 22:00 73 26 92/45 (61) 100 08/03/19 21:00 59 21 91/38 (55) 97 08/03/19 20:08 95 Room Air 21 08/03/19 20:08 68 19 95 Room Air 21 08/03/19 20:00 Room Air 08/03/19 20:00 62 08/03/19 20:00 97.6 61 23 103/48 (66) 98 08/03/19 19:00 63 23 91/32 (51) 85 08/03/19 18:00 81 31 99/52 (68) 93 08/03/19 17:00 78 29 84/27 (46) 93 08/03/19 16:30 80 25 111/53 (72) 91 08/03/19 16:15 96 28 111/53 (72) 99 08/03/19 16:00 111/53 08/03/19 16:00 99.7 89 32 102/49 (66) 93 08/03/19 16:00 72 08/03/19 16:00 Room Air 08/03/19 15:45 68 30 109/37 (61) 94 08/03/19 15:30 70 23 104/37 (59) 93 08/03/19 15:15 76 31 115/46 (69) 95 08/03/19 15:00 79 34 115/46 (69) 96 08/03/19 15:00 115/46 08/03/19 14:45 80 35 108/51 (70) 95 08/03/19 14:30 75 31 100/47 (64) 96 08/03/19 14:15 71 20 105/39 (61) 95 08/03/19 14:00 86 32 96/35 (55) 96 08/03/19 14:00 87 30 96/35 (55) 96 08/03/19 14:00 105/39 08/03/19 13:30 82 29 99/37 (57) 95 08/03/19 13:00 88 32 99/47 (64) 95 08/03/19 13:00 99/7 08/03/19 12:45 75 33 96/42 (60) 92 08/03/19 12:30 80 32 92/46 (61) 97 08/03/19 12:15 87 24 110/46 (67) 94 08/03/19 12:00 Room Air 08/03/19 12:00 110/46 08/03/19 12:00 69 08/03/19 12:00 98.8 76 24 107/47 (67) 90 08/03/19 11:45 85 28 97/48 (64) 93 08/03/19 11:30 86 30 105/47 (66) 93 08/03/19 11:15 71 25 91/39 (56) 91 08/03/19 11:00 91/39 08/03/19 11:00 88 31 107/48 (67) 93 08/03/19 10:45 70 22 100/45 (63) 92 08/03/19 10:30 79 26 95/45 (62) 94 08/03/19 10:15 91 26 101/53 (69) 08/03/19 10:00 86 33 100/45 (63) 95 08/03/19 10:00 101/53 08/03/19 10:00 79 30 104/41 (62) 93 08/03/19 09:45 74 26 98/50 (66) 93 08/03/19 09:30 85 33 100/38 (58) 93 08/03/19 09:15 93 26 102/44 (63) 94 08/03/19 09:00 102/44 08/03/19 09:00 102 32 100/51 (67) 93 08/03/19 08:45 89 22 105/45 (65) 94 08/03/19 08:30 93 28 99/46 (63) 94 08/03/19 08:15 93 39 97/44 (61) 92 08/03/19 08:00 94 08/03/19 08:00 88 30 102/45 (64) 94 08/03/19 08:00 Room Air 08/03/19 08:00 97/44 08/03/19 07:45 100 22 103/50 (67) 92 Intake and Output 08/03/19 08/04/19 19:00 07:00 Intake Total 2648.75 ml 2342.5 ml Output Total 2355 ml 1500 ml Balance 293.75 ml 842.5 ml Intake Free Water 180 ml IV Total 1918.75 ml 1787.5 ml Tube Feeding 550 ml 495 ml Other 60 ml Output Urine Total 2355 ml 1350 ml Stool Total 150 ml # Bowel Movements 3 7 Laboratory Tests 08/04/19 05:00: White Blood Count 7.4, Red Blood Count 2.98L, Hemoglobin 9.5L, Hematocrit 28.1L , Mean Corpuscular Volume 94, Mean Corpuscular Hemoglobin 31.8H, Mean Corpuscular Hemoglobin Concent 33.7, Red Cell Distribution Width 15.4H, Platelet Count 225, Mean Platelet Volume 6.8, Neutrophils (%) (Auto) 68.6, Lymphocytes (%) (Auto) 24.3, Monocytes (%) (Auto) 4.1, Eosinophils (%) (Auto) 2.2, Basophils (%) (Auto) 0.9, Sodium Level 141, Potassium Level 3.6, Chloride Level 109H, Carbon Dioxide Level 31, Anion Gap 1L, Blood Urea Nitrogen 7, Creatinine 0.7, Estimat Glomerular Filtration Rate > 60, Glucose Level 101, Calcium Level 7.7L, Total Bilirubin 0.6, Aspartate Amino Transf (AST/SGOT) 211H , Alanine Aminotransferase (ALT/SGPT) 410H, Alkaline Phosphatase 149H, Total Protein 6.1L, Albumin 1.7L, Globulin 4.4, Albumin/Globulin Ratio 0.4L Height (Feet): 5 Height (Inches): 4.00 Weight (Pounds): 110 General Appearance: no apparent distress EENT: normal ENT inspection Neck: supple Cardiovascular: normal rate Respiratory/Chest: decreased breath sounds Abdomen: normal bowel sounds, non tender, soft Extremities: non-tender Lewis Rubio MD Aug 04, 2019 07:45
--- NOTE | 2019-08-04 08:25 | General Progress Note ---
Assessment/Plan Problem List: (1) Septic shock ICD Codes: A41.9 - Sepsis, unspecified organism; R65.21 - Severe sepsis with septic shock SNOMED: 63174527 (2) Severe sepsis ICD Codes: A41.9 - Sepsis, unspecified organism; R65.20 - Severe sepsis without septic shock SNOMED: 95456317 (3) Hepatitis B ICD Codes: B19.10 - Unspecified viral hepatitis B without hepatic coma SNOMED: 97222870 (4) CHF (congestive heart failure) ICD Codes: I50.9 - Heart failure, unspecified SNOMED: 57516231 (5) Aortic stenosis ICD Codes: I35.0 - Nonrheumatic aortic (valve) stenosis SNOMED: 17770142 (6) GERD (gastroesophageal reflux disease) ICD Codes: K21.9 - Gastro-esophageal reflux disease without esophagitis SNOMED: 367521984 (7) HTN (hypertension) ICD Codes: I10 - Essential (primary) hypertension SNOMED: 14743559 Status: stable, progressing, other - critical Assessment/Plan: 54-year-old male, correction resident Down syndrome, diastolic CHF, hypertension,hyperlipidemia, iron deficiency anemia, hypothyroidism, GERD, aortic stenosis, bilateral foot pressure ulcers, dysphagia s/p PEG presenting with altered mental status and hypoxia being admitted with septic shock likely secondary to pneumonia and possible abdominal source given elevated LFTs, though could be due to hypotension. CT abdomen pelvis without any source for infection. #Shock likely hypovolemic and septic. Staph aureus/vre/cnc bacteremia with possible mid-line infection, mrsa pneumonia, aspiration risk #Healthcare associated pneumonia IV fluid hydration. Weaned levophed. continue midodrine Cardiology consult with Dr. Owen regarding BP management Continue home midodrine- d/w rn - zyvox and zosyn - day # 6 abx . case d/w Dr. Serrano -mid-line removed, new picc line - f/u on cultures, labs and chest x-ray, check echo Pulmonary consult with Dr. Luevano. case d/w AM cortisol --> 12.7 d/w RN #toxic metabolic encephalopathy- improving Monitor mental status, treat sepsis #hypotonic hyponatremia- corrected continue to monitor #Abnormal LFTs #Acute Hepatitis B -right upper quadrant ultrasound- reviewed, no acute pathology -Trend LFTs, improving - Upon reviewing the chart, on previous admission hepatitis B surface antigen, hepatitis B core total antibody and hepatitis Be antibody was positive. liver function tests were normal. Patient was referred to follow up outpatient. -GI consult -continue Lamivudine 100mg GT BID Hep B DNA>>> pending # Dysphagia, status post G-tube #GERD resume tube feeds #Down syndrome. at baseline #Mild Diastolic CHF- not in exacerbation #history of supraventricular tachycardia, currently in SR #hypertension- hypotensive now #hyperlipidemia #- mild #moderate pulmonary hypertension hypovolemic Hold BP meds #iron deficiency anemia H/H stable continue to monitor Anemia panel prn transfusion #hypothyroidism -Continue Synthroid, follow up TSH- normal #Bilateral wounds and pressure ulcers to the heels wound care consult with Dr. Ruffin, surgery off loading turning q2 hr VTE ppx: heparin subcutaneous. GI ppx: IV PPI Diet: tube feeds Code status, DNI, however can resuscitate disposition: Transfer to [facility] surg if BP remains stable off levophed I spent 40 minutes on this patient's case > 50% spent on counselling and care coordination The time of my note may not reflect the time of my patient encounter. Subjective Date patient seen: Aug 04, 2019 ROS Limited/Unobtainable: Yes Allergies: Coded Allergies: KETAMINE (Verified Allergy, Unknown, 05/29/19) NSAIDS (NON-STEROIDAL ANTI-INFLAMMA (Verified Allergy, Unknown, 05/29/19) Subjective remains in ICU, awake but non verbal (baseline), he appears to be in no distress. He is off levophed ggt Objective Last 24 Hour Vital Signs Date Time Temp Pulse Resp B/P (MAP) Pulse Ox O2 Delivery O2 Flow Rate FiO2 08/04/19 08:00 97.9 67 23 95/35 (55) 94 08/04/19 07:00 57 19 93/52 (66) 99 08/04/19 06:00 64 21 93/42 (59) 95 08/04/19 05:00 66 20 103/39 (60) 93 08/04/19 04:00 77 08/04/19 04:00 Room Air 08/04/19 04:00 97.5 86 22 92/73 (79) 93 08/04/19 03:00 72 23 92/37 (55) 89 08/04/19 02:00 70 23 92/30 (50) 92 08/04/19 01:00 84 27 95/42 (59) 93 08/04/19 00:00 98.4 73 28 91/42 (58) 95 08/04/19 00:00 77 08/04/19 00:00 Room Air 08/03/19 23:00 76 27 90/28 (48) 96 08/03/19 22:00 73 26 92/45 (61) 100 08/03/19 21:00 59 21 91/38 (55) 97 08/03/19 20:08 95 Room Air 21 08/03/19 20:08 68 19 95 Room Air 21 08/03/19 20:00 Room Air 08/03/19 20:00 62 08/03/19 20:00 97.6 61 23 103/48 (66) 98 08/03/19 19:00 63 23 91/32 (51) 85 08/03/19 18:00 81 31 99/52 (68) 93 08/03/19 17:00 78 29 84/27 (46) 93 08/03/19 16:30 80 25 111/53 (72) 91 08/03/19 16:15 96 28 111/53 (72) 99 08/03/19 16:00 111/53 08/03/19 16:00 99.7 89 32 102/49 (66) 93 08/03/19 16:00 72 08/03/19 16:00 Room Air 08/03/19 15:45 68 30 109/37 (61) 94 08/03/19 15:30 70 23 104/37 (59) 93 08/03/19 15:15 76 31 115/46 (69) 95 08/03/19 15:00 79 34 115/46 (69) 96 08/03/19 15:00 115/46 08/03/19 14:45 80 35 108/51 (70) 95 08/03/19 14:30 75 31 100/47 (64) 96 08/03/19 14:15 71 20 105/39 (61) 95 08/03/19 14:00 86 32 96/35 (55) 96 08/03/19 14:00 87 30 96/35 (55) 96 08/03/19 14:00 105/39 08/03/19 13:30 82 29 99/37 (57) 95 08/03/19 13:00 88 32 99/47 (64) 95 08/03/19 13:00 99/7 08/03/19 12:45 75 33 96/42 (60) 92 08/03/19 12:30 80 32 92/46 (61) 97 08/03/19 12:15 87 24 110/46 (67) 94 08/03/19 12:00 Room Air 08/03/19 12:00 110/46 08/03/19 12:00 69 08/03/19 12:00 98.8 76 24 107/47 (67) 90 08/03/19 11:45 85 28 97/48 (64) 93 08/03/19 11:30 86 30 105/47 (66) 93 08/03/19 11:15 71 25 91/39 (56) 91 08/03/19 11:00 91/39 08/03/19 11:00 88 31 107/48 (67) 93 08/03/19 10:45 70 22 100/45 (63) 92 08/03/19 10:30 79 26 95/45 (62) 94 08/03/19 10:15 91 26 101/53 (69) 08/03/19 10:00 86 33 100/45 (63) 95 08/03/19 10:00 101/53 08/03/19 10:00 79 30 104/41 (62) 93 08/03/19 09:45 74 26 98/50 (66) 93 08/03/19 09:30 85 33 100/38 (58) 93 08/03/19 09:15 93 26 102/44 (63) 94 08/03/19 09:00 102/44 08/03/19 09:00 102 32 100/51 (67) 93 08/03/19 08:45 89 22 105/45 (65) 94 08/03/19 08:30 93 28 99/46 (63) 94 Intake and Output 08/03/19 08/04/19 19:00 07:00 Intake Total 2648.75 ml 2397.5 ml Output Total 2355 ml 1720 ml Balance 293.75 ml 677.5 ml Intake Free Water 180 ml IV Total 1918.75 ml 1787.5 ml Tube Feeding 550 ml 550 ml Other 60 ml Output Urine Total 2355 ml 1570 ml Stool Total 150 ml # Bowel Movements 3 7 Laboratory Tests 08/04/19 05:00: White Blood Count 7.4, Red Blood Count 2.98L, Hemoglobin 9.5L, Hematocrit 28.1L , Mean Corpuscular Volume 94, Mean Corpuscular Hemoglobin 31.8H, Mean Corpuscular Hemoglobin Concent 33.7, Red Cell Distribution Width 15.4H, Platelet Count 225, Mean Platelet Volume 6.8, Neutrophils (%) (Auto) 68.6, Lymphocytes (%) (Auto) 24.3, Monocytes (%) (Auto) 4.1, Eosinophils (%) (Auto) 2.2, Basophils (%) (Auto) 0.9, Sodium Level 141, Potassium Level 3.6, Chloride Level 109H, Carbon Dioxide Level 31, Anion Gap 1L, Blood Urea Nitrogen 7, Creatinine 0.7, Estimat Glomerular Filtration Rate > 60, Glucose Level 101, Calcium Level 7.7L, Total Bilirubin 0.6, Aspartate Amino Transf (AST/SGOT) 211H , Alanine Aminotransferase (ALT/SGPT) 410H, Alkaline Phosphatase 149H, Total Protein 6.1L, Albumin 1.7L, Globulin 4.4, Albumin/Globulin Ratio 0.4L Height (Feet): 5 Height (Inches): 4.00 Weight (Pounds): 110 Objective General Appearance: no apparent distress, awake, non verbal Head: normocephalic, atraumatic Eyes: bilateral PERRL ENT: dry mucus membranes Neck: supple, no jvd Respiratory: rhonchi Cardiovascular : regular rate, rhythm, no m/r/g, ext: No edema Gastrointestinal: non tender, soft, +peg, Open blood blister in close proximity to GT . Musculoskeletal: moving extremities, muscle atrophy , +picc Neurologic: unable to assess, due to not following commands Skin: stage 2 ulcer right heel Matty Hernandez M.D. Aug 04, 2019 08:25
[2019-08-04] MEDS: Docusate 100mg/10ml Liq GT SCH ×2 (09:00→18:00)
[2019-08-04] MEDS: Midodrine 10mg tab GT SCH ×3 (09:24→17:35)
[2019-08-04] MEDS: Linezolid 600mg/300mL Premix IVPB SCH ×2 (09:24→20:36)
[2019-08-04] MEDS: Heparin 5000 units/ml inj SUBQ SCH ×2 (09:26→20:38)
[2019-08-04] MEDS ORDERED: NS 275ml ONE (11:03)
[2019-08-04] MEDS ORDERED: Tubing IV Secondary IV ONE (11:03)
--- NOTE | 2019-08-04 11:25 | Surgery Progress Note ---
Surgery Progress Note Subjective Additional Comments no acute events comfortable stable responsive waves hello no n/v/f/c labs reviewed exam stable downgrade Objective Last 24 Hour Vital Signs Date Time Temp Pulse Resp B/P (MAP) Pulse Ox O2 Delivery O2 Flow Rate FiO2 08/04/19 11:00 60 20 86/30 (48) 94 08/04/19 10:00 68 21 87/44 (58) 95 08/04/19 09:00 65 29 82/34 (50) 96 08/04/19 08:00 97.9 67 23 95/35 (55) 94 08/04/19 08:00 Nasal Cannula 2.0 08/04/19 08:00 56 08/04/19 07:00 57 19 93/52 (66) 99 08/04/19 06:00 64 21 93/42 (59) 95 08/04/19 05:00 66 20 103/39 (60) 93 08/04/19 04:00 77 08/04/19 04:00 Room Air 08/04/19 04:00 97.5 86 22 92/73 (79) 93 08/04/19 03:00 72 23 92/37 (55) 89 08/04/19 02:00 70 23 92/30 (50) 92 08/04/19 01:00 84 27 95/42 (59) 93 08/04/19 00:00 98.4 73 28 91/42 (58) 95 08/04/19 00:00 77 08/04/19 00:00 Room Air 08/03/19 23:00 76 27 90/28 (48) 96 08/03/19 22:00 73 26 92/45 (61) 100 08/03/19 21:00 59 21 91/38 (55) 97 08/03/19 20:08 95 Room Air 21 08/03/19 20:08 68 19 95 Room Air 21 08/03/19 20:00 Room Air 08/03/19 20:00 62 08/03/19 20:00 97.6 61 23 103/48 (66) 98 08/03/19 19:00 63 23 91/32 (51) 85 08/03/19 18:00 81 31 99/52 (68) 93 08/03/19 17:00 78 29 84/27 (46) 93 08/03/19 16:30 80 25 111/53 (72) 91 08/03/19 16:15 96 28 111/53 (72) 99 08/03/19 16:00 111/53 08/03/19 16:00 99.7 89 32 102/49 (66) 93 08/03/19 16:00 72 08/03/19 16:00 Room Air 08/03/19 15:45 68 30 109/37 (61) 94 08/03/19 15:30 70 23 104/37 (59) 93 08/03/19 15:15 76 31 115/46 (69) 95 08/03/19 15:00 79 34 115/46 (69) 96 08/03/19 15:00 115/46 08/03/19 14:45 80 35 108/51 (70) 95 08/03/19 14:30 75 31 100/47 (64) 96 08/03/19 14:15 71 20 105/39 (61) 95 08/03/19 14:00 86 32 96/35 (55) 96 08/03/19 14:00 87 30 96/35 (55) 96 08/03/19 14:00 105/39 08/03/19 13:30 82 29 99/37 (57) 95 08/03/19 13:00 88 32 99/47 (64) 95 08/03/19 13:00 99/7 08/03/19 12:45 75 33 96/42 (60) 92 08/03/19 12:30 80 32 92/46 (61) 97 08/03/19 12:15 87 24 110/46 (67) 94 08/03/19 12:00 Room Air 08/03/19 12:00 110/46 08/03/19 12:00 69 08/03/19 12:00 98.8 76 24 107/47 (67) 90 08/03/19 11:45 85 28 97/48 (64) 93 08/03/19 11:30 86 30 105/47 (66) 93 I&O Intake and Output 08/03/19 08/04/19 19:00 07:00 Intake Total 2648.75 ml 2550.0 ml Output Total 2355 ml 1720 ml Balance 293.75 ml 830.0 ml Intake Free Water 180 ml IV Total 1918.75 ml 1940.0 ml Tube Feeding 550 ml 550 ml Other 60 ml Output Urine Total 2355 ml 1570 ml Stool Total 150 ml # Bowel Movements 3 7 Dressing: saturated Wound: clean Cardiovascular: RSR Respiratory: clear Abdomen: soft, flat, non-tender, present bowel sounds, other, non-distended Extremities: no tenderness, no cyanosis Laboratory Tests Test 08/04/19 05:00 White Blood Count 7.4 K/UL (4.8-10.8) Red Blood Count 2.98 M/UL (4.70-6.10) L Hemoglobin 9.5 G/DL (14.2-18.0) L Hematocrit 28.1 % (42.0-52.0) L Mean Corpuscular Volume 94 FL (80-99) Mean Corpuscular Hemoglobin 31.8 PG (27.0-31.0) H Mean Corpuscular Hemoglobin Concent 33.7 G/DL (32.0-36.0) Red Cell Distribution Width 15.4 % (11.6-14.8) H Platelet Count 225 K/UL (150-450) Mean Platelet Volume 6.8 FL (6.5-10.1) Neutrophils (%) (Auto) 68.6 % (45.0-75.0) Lymphocytes (%) (Auto) 24.3 % (20.0-45.0) Monocytes (%) (Auto) 4.1 % (1.0-10.0) Eosinophils (%) (Auto) 2.2 % (0.0-3.0) Basophils (%) (Auto) 0.9 % (0.0-2.0) Sodium Level 141 MMOL/L (136-145) Potassium Level 3.6 MMOL/L (3.5-5.1) Chloride Level 109 MMOL/L (98-107) H Carbon Dioxide Level 31 MMOL/L (21-32) Anion Gap 1 mmol/L (5-15) L Blood Urea Nitrogen 7 mg/dL (7-18) Creatinine 0.7 MG/DL (0.55-1.30) Estimat Glomerular Filtration Rate > 60 mL/min (>60) Glucose Level 101 MG/DL (74-106) Calcium Level 7.7 MG/DL (8.5-10.1) L Total Bilirubin 0.6 MG/DL (0.2-1.0) Aspartate Amino Transf (AST/SGOT) 211 U/L (15-37) H Alanine Aminotransferase (ALT/SGPT) 410 U/L (12-78) H Alkaline Phosphatase 149 U/L (46-116) H Total Protein 6.1 G/DL (6.4-8.2) L Albumin 1.7 G/DL (3.4-5.0) L Globulin 4.4 g/dL Albumin/Globulin Ratio 0.4 (1.0-2.7) L Plan Problems: (1) Septic shock Assessment & Plan: This is a 54-year-old male with multi-medical morbidities history of Down's who presents with hypotension, tachycardia, abnormal electrolytes, abnormal LFTs. Patient currently admitted to the intensive care unit for care and management. Abdominal ultrasound noted as below Does not seem to have intra-abdominal etiology of sepsis/SIRS We will continue with work-up Continue with IV fluid resuscitation Trend labs Hold on central venous catheter placement as patient is responsive to IV fluids. If requires pressors okay to use midline for a short period of time until peripherally inserted central venous catheter placed.\ lft's improving exam improved downgrade Local wound care as below Once stable will resume nutritional goals Thank you will follow the recommendations Gallbladder is unremarkable, without stones, wall thickening, nor pericholecystic fluid. Sonographic Gamez's sign is negative. Common bile duct measures 5 mm in diameter. No intrahepatic biliary ductal dilatation. Liver demonstrates slightly coarsened echogenicity. No focal abnormality. Portal vein and hepatic veins are patent. Pancreas is unremarkable. Spleen is unremarkable. Left kidney measures left cm in length. Right kidney measures 11.2 cm length. Both kidneys demonstrate normal echogenicity. There is mild fullness to the right renal collecting system, and very mild left hydronephrosis No focal abnormality . Non-aneurysmal abdominal aorta . There is a right hip prosthesis which throws off streak artifact which may obscure pelvic pathology. There is also some image degradation due to respiratory motion artifact in the upper abdomen. Lack of enteric contrast limits assessment of the GI tract. The rectum is distended by stool, measuring 6.7 cm in diameter. No definite wall thickening or perirectal inflammation demonstrated. Considerable dense stool is also seen elsewhere within the colon. No evidence of colonic diverticulosis or diverticulitis. The appendix is normal. No small bowel distention. There is a gastrostomy which appears to be in good position. Lack of IV contrast limits assessment of the solid organs. The liver, gallbladder, bile ducts, pancreas, spleen, adrenals are all unremarkable. There is mild fullness to the bilateral renal collecting systems and ureters. No focal renal parenchymal abnormality. No renal or ureteral calculi demonstrated. The bladder is markedly distended. It demonstrates mild wall thickening. No pelvic mass or adenopathy. The lung bases demonstrate bronchial wall thickening and basilar atelectatic changes as well as possibly some bronchiectasis on the left. There may be trace pleural fluid bilaterally. There is a small anterior wall pericardial effusion which measures up to 7 mm in thickness. The bones demonstrate a compression fracture deformity of the T11 vertebral body. This results in about 30% height loss. This is in retrospect evident also on a prior chest CT of 06/03/2019 Alexis Ruffin Aug 04, 2019 11:25
[2019-08-04] MEDS ORDERED: NS Irrig 1000ml ONE (16:29)
--- NOTE | 2019-08-04 17:29 | Infectious Diseases Prog Note ---
Assessment/Plan Assessment/Plan ASSESSMENT: 1. sepsis, shock, staph aureus/vre/house wrecker bacteremia with possible mid-line infection, mrsa pneumonia, aspiration risk, fevers - zyvox and zosyn - day # 6 abx, discontinue meropenem for carbapenem sparing - mid-line removed, new picc line - monitor labs and chest x-ray, check echo - continue per primary care team and consultants - d/w RN - icu care - surveillance blood cultures - negative 2. The patient has a history of Down syndrome. 3. Wound care protocol, wounds do not look acutely infected. 4. Diastolic CHF. 5. Hypertension. 6. Hyperlipidemia. 7. Anemia. 8. Hypothyroidism 9. GERD. 10. Aortic stenosis. 11. Dysphagia and G-tube. 12. Allergies to ketamine and NSAIDs. 13. Social history is negative. 14. Family history is noncontributory. 15. MAR was noted. 16. Case discussed with RN. 17. ICU care. 18. The patient also has elevated LFTs. I think an abdominal ultrasound has been ordered, this most likely is from septic shock. 19. Continue treatment per primary consultants and ICU care and nursing staff. 20. 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 Subjective Constitutional: Reports: fever - lgt yesterday, fever curve better , fatigue, other - alert, non-verbal, off pressors now HEENT: Denies: congestion Respiratory: Denies: shortness of breath Cardiovascular: Denies: chest pain Gastrointestinal/Abdominal: Denies: nausea, vomiting, diarrhea Genitourinary: Reports: other - + jones Neurologic: Reports: weakness, other - alert, responsive Psychiatric: Reports: other - NA Skin: Denies: rash Hematologic: Denies: bleeding Musculoskeletal: Reports: other - NA Allergies: Coded Allergies: KETAMINE (Verified Allergy, Unknown, 05/29/19) NSAIDS (NON-STEROIDAL ANTI-INFLAMMA (Verified Allergy, Unknown, 05/29/19) Objective Vital Signs Last 24 Hour Vital Signs Date Time Temp Pulse Resp B/P (MAP) Pulse Ox O2 Delivery O2 Flow Rate FiO2 08/04/19 17:00 67 21 90/57 (68) 94 08/04/19 16:00 Nasal Cannula 2.0 08/04/19 16:00 53 08/04/19 16:00 97.8 68 19 91/57 (68) 96 08/04/19 15:00 67 31 91/50 (64) 94 08/04/19 14:00 69 27 84/48 (60) 94 08/04/19 13:00 66 23 91/38 (55) 96 08/04/19 12:00 Nasal Cannula 2.0 08/04/19 12:00 97.5 70 16 79/60 (66) 97 08/04/19 11:57 59 08/04/19 11:00 60 20 86/30 (48) 94 08/04/19 10:00 68 21 87/44 (58) 95 08/04/19 09:00 65 29 82/34 (50) 96 08/04/19 08:00 97.9 67 23 95/35 (55) 94 08/04/19 08:00 Nasal Cannula 2.0 08/04/19 08:00 56 08/04/19 07:00 57 19 93/52 (66) 99 08/04/19 06:00 64 21 93/42 (59) 95 08/04/19 05:00 66 20 103/39 (60) 93 08/04/19 04:00 77 08/04/19 04:00 Room Air 08/04/19 04:00 97.5 86 22 92/73 (79) 93 08/04/19 03:00 72 23 92/37 (55) 89 08/04/19 02:00 70 23 92/30 (50) 92 08/04/19 01:00 84 27 95/42 (59) 93 08/04/19 00:00 98.4 73 28 91/42 (58) 95 08/04/19 00:00 77 08/04/19 00:00 Room Air 08/03/19 23:00 76 27 90/28 (48) 96 08/03/19 22:00 73 26 92/45 (61) 100 08/03/19 21:00 59 21 91/38 (55) 97 08/03/19 20:08 95 Room Air 21 08/03/19 20:08 68 19 95 Room Air 21 08/03/19 20:00 Room Air 08/03/19 20:00 62 08/03/19 20:00 97.6 61 23 103/48 (66) 98 08/03/19 19:00 63 23 91/32 (51) 85 08/03/19 18:00 81 31 99/52 68) 88 Height (Feet): 5 Height (Inches): 4.00 Weight (Pounds): 110 General Appearance: no acute distress HEENT: normocephalic, atraumatic, anicteric, mucous membranes moist Respiratory/Chest: no accessory muscle use, crackles/rales, rhonchi - bilaterally Cardiovascular: normal rate, regular rhythm, no gallop/murmur, no JVD Abdomen: normal bowel sounds, soft, non tender, no organomegaly, non distended Genitourinary: other - + jones - urine clear Extremities: no cyanosis Skin: no rash Neurologic/Psychiatric: 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 Patient is rotated to the right. There are increasing opacities at the lung bases, right greater than left. Left superhilar atelectasis or scarring is unchanged. There is an development of a small right-sided pleural effusion. No radiographically appreciable pneumothorax. Osseous structures stable. Multiple surgical clips noted projecting over the region of the right elbow. Impression: Limited exam due to suboptimal positioning. Worsening aeration with increasing bilateral airspace opacities, right greater than left. Interval development of a small right pleural effusion. Chest x-ray - 08/02/19 - IMPRESSION: 1. Interval placement of right PICC line to the cavoatrial junction. 2. Small right pleural effusion. Query tiny left pleural effusion. 3. Bibasilar lung atelectasis/airspace disease. Interstitial thickening. Microbiology Date/Time Source Procedure Growth Status 07/29/19 17:00 Blood Blood Culture - Final NO GROWTH AFTER 5 DAYS Complete 07/29/19 17:10 Sputum Induced Gram Stain - Final Complete 07/29/19 17:10 Sputum Culture - Final Staphylococcus Aureus - Mrsa Complete 07/28/19 10:55 Rectum - Final NO CARBAPENEM-RESISTANT ENTEROBACTERI... Complete initial blood cultures - mrsa, house wrecker, vre Laboratory Tests Test 08/04/19 05:00 White Blood Count 7.4 K/UL (4.8-10.8) Red Blood Count 2.98 M/UL (4.70-6.10) L Hemoglobin 9.5 G/DL (14.2-18.0) L Hematocrit 28.1 % (42.0-52.0) L Mean Corpuscular Volume 94 FL (80-99) Mean Corpuscular Hemoglobin 31.8 PG (27.0-31.0) H Mean Corpuscular Hemoglobin Concent 33.7 G/DL (32.0-36.0) Red Cell Distribution Width 15.4 % (11.6-14.8) H Platelet Count 225 K/UL (150-450) Mean Platelet Volume 6.8 FL (6.5-10.1) Neutrophils (%) (Auto) 68.6 % (45.0-75.0) Lymphocytes (%) (Auto) 24.3 % (20.0-45.0) Monocytes (%) (Auto) 4.1 % (1.0-10.0) Eosinophils (%) (Auto) 2.2 % (0.0-3.0) Basophils (%) (Auto) 0.9 % (0.0-2.0) Sodium Level 141 MMOL/L (136-145) Potassium Level 3.6 MMOL/L (3.5-5.1) Chloride Level 109 MMOL/L (98-107) H Carbon Dioxide Level 31 MMOL/L (21-32) Anion Gap 1 mmol/L (5-15) L Blood Urea Nitrogen 7 mg/dL (7-18) Creatinine 0.7 MG/DL (0.55-1.30) Estimat Glomerular Filtration Rate > 60 mL/min (>60) Glucose Level 101 MG/DL (74-106) Calcium Level 7.7 MG/DL (8.5-10.1) L Total Bilirubin 0.6 MG/DL (0.2-1.0) Aspartate Amino Transf (AST/SGOT) 211 U/L (15-37) H Alanine Aminotransferase (ALT/SGPT) 410 U/L (12-78) H Alkaline Phosphatase 149 U/L (46-116) H Total Protein 6.1 G/DL (6.4-8.2) L Albumin 1.7 G/DL (3.4-5.0) L Globulin 4.4 g/dL Albumin/Globulin Ratio 0.4 (1.0-2.7) L Current Medications Medications (Trade) Dose Ordered Sig/Kendra Route PRN Reason Start Time Stop Time Status Last Admin Dose Admin Acetaminophen (Tylenol) 650 mg Q4H PRN ORAL Mild Pain (Pain Scale 1-3) 07/28/19 12:15 08/27/19 12:14 07/31/19 20:17 Acetaminophen (Tylenol) 650 mg Q4H PRN ORAL fever 07/28/19 12:15 08/27/19 12:14 Chlorhexidine Gluconate (Judi-Hex 2%) 1 applic DAILY@2000 TOPIC 07/30/19 20:00 08/29/19 19:59 08/03/19 20:49 Dextrose (Dextrose 50%) 25 ml Q30M PRN IV Hypoglycemia 07/28/19 12:15 08/27/19 12:14 Dextrose (Dextrose 50%) 50 ml Q30M PRN IV Hypoglycemia 07/28/19 12:15 08/27/19 12:14 Docusate Sodium (Colace) 100 mg BID GT 08/01/19 09:00 08/31/19 08:59 08/03/19 17:29 Heparin Sodium (Porcine) (Heparin 5000 units/ml) 5,000 units EVERY 12 HOURS SUBQ 07/28/19 21:00 08/27/19 20:59 08/04/19 09:26 Levothyroxine Sodium (Synthroid) 50 mcg DAILY@0630 ORAL 07/30/19 06:30 08/29/19 06:29 08/04/19 06:09 Linezolid 300 ml @ 300 mls/hr Q12HR IVPB 08/02/19 17:00 08/09/19 16:59 08/04/19 09:24 Midodrine (Pro-Amatine) 5 mg THREE TIMES A DAY GT 08/02/19 09:00 08/29/19 12:59 08/04/19 13:11 Norepinephrine Bitartrate 4 mg/ Dextrose 250 ml @ 0 mls/hr Q24H IV 07/31/19 18:00 08/30/19 17:59 08/03/19 04:37 Ondansetron HCl (Zofran) 4 mg Q4H PRN IVP Nausea & Vomiting 08/03/19 03:30 09/02/19 03:29 08/03/19 03:27 Piperacillin Sod/ Tazobactam Sod 3.375 gm/Dextrose 100 ml @ 25 mls/hr EVERY 8 HOURS IVPB 08/02/19 22:00 08/07/19 21:59 08/04/19 13:11 Polyethylene Glycol (Miralax) 17 gm BEDTIME ORAL 08/01/19 21:00 08/31/19 20:59 08/03/19 20:49 Sodium Chloride 1,000 ml @ 125 mls/hr Q8H IV 07/29/19 09:00 08/28/19 08:59 08/04/19 12:02 Rafia Rand MD Aug 04, 2019 17:29
--- NOTE | 2019-08-04 17:56 | Pulmonolgy Critical Care Note ---
Critical Care - Asmt/Plan Problems: (1) Severe sepsis (2) Septic shock (3) Ulcer of right heel (4) Acute and chronic respiratory failure with hypoxia (5) CHF (congestive heart failure) (6) Iron deficiency anemia (7) GERD (gastroesophageal reflux disease) (8) HTN (hypertension) (9) Hypothyroid (10) HLD (hyperlipidemia) (11) Down's syndrome (12) Aortic stenosis (13) Acute on chronic respiratory failure with hypoxia and hypercapnia Respiratory: monitor respiratory rate Cardiac: stop pressors, continue to monitor HR/BP, other - PRN MIDODRINE, F/U CARDS RECS Renal: keep IV fluid Infectious Disease: check cultures, continue antibiotics - per ID Gastrointestinal: continue feedings/current rate Endocrine: monitor blood sugar Hematologic: monitor H/H Neurologic: keep patient comfortable Prophylaxis: Heparin Disposition: transfer to - [facility] Time Spent (Minutes): 30 Notes Reviewed: cartography technician, cardio, ID Discussed with: nurses, consultants, other - DNAR/DNI Critical Care - Objective Last 24 Hour Vital Signs Date Time Temp Pulse Resp B/P (MAP) Pulse Ox O2 Delivery O2 Flow Rate FiO2 08/04/19 17:00 67 21 90/57 (68) 94 08/04/19 16:00 Nasal Cannula 2.0 08/04/19 16:00 53 08/04/19 16:00 97.8 68 19 91/57 (68) 96 08/04/19 15:00 67 31 91/50 (64) 94 08/04/19 14:00 69 27 84/48 (60) 94 08/04/19 13:00 66 23 91/38 (55) 96 08/04/19 12:00 Nasal Cannula 2.0 08/04/19 12:00 97.5 70 16 79/60 (66) 97 08/04/19 11:57 59 08/04/19 11:00 60 20 86/30 (48) 94 08/04/19 10:00 68 21 87/44 (58) 95 08/04/19 09:00 65 29 82/34 (50) 96 08/04/19 08:00 97.9 67 23 95/35 (55) 94 08/04/19 08:00 Nasal Cannula 2.0 08/04/19 08:00 56 08/04/19 07:00 57 19 93/52 (66) 99 08/04/19 06:00 64 21 93/42 (59) 95 08/04/19 05:00 66 20 103/39 (60) 93 08/04/19 04:00 77 08/04/19 04:00 Room Air 08/04/19 04:00 97.5 86 22 92/73 (79) 93 08/04/19 03:00 72 23 92/37 (55) 89 08/04/19 02:00 70 23 92/30 (50) 92 08/04/19 01:00 84 27 95/42 (59) 93 08/04/19 00:00 98.4 73 28 91/42 (58) 95 08/04/19 00:00 77 08/04/19 00:00 Room Air 08/03/19 23:00 76 27 90/28 (48) 96 08/03/19 22:00 73 26 92/45 (61) 100 08/03/19 21:00 59 21 91/38 (55) 97 08/03/19 20:08 95 Room Air 21 08/03/19 20:08 68 19 95 Room Air 21 08/03/19 20:00 Room Air 08/03/19 20:00 62 08/03/19 20:00 97.6 61 23 103/48 (66) 98 08/03/19 19:00 63 23 91/32 (51) 85 08/03/19 18:00 81 31 99/52 (68) 93 Status: awake, somnolent Condition: improving HEENT: atraumatic, normocephalic Lungs: clear Heart: HR/BP stable Abdomen: soft, non-tender, active bowel sounds, feeding tube Extremities: no C/C/E Decubiti: location - ankle and sacrum, stage - DTI Blood Sugars: BS controlled Critical Care - Subjective ROS Limited/Unobtainable: Yes ICU Day: 8 Interval Events: Off NE Condition: improving IV Access: PICC EKG Rhythm: Sinus Rhythm FI02: 21 Sputum Amount: None Secretions: None Fluids: NS@125 Drips: N/A Tube Feeding Amount: 55 I&O: Intake and Output 08/03/19 08/04/19 19:00 07:00 Intake Total 2648.75 ml 2550.0 ml Output Total 2355 ml 1720 ml Balance 293.75 ml 830.0 ml Intake Free Water 180 ml IV Total 1918.75 ml 1940.0 ml Tube Feeding 550 ml 550 ml Other 60 ml Output Urine Total 2355 ml 1570 ml Stool Total 150 ml # Bowel Movements 3 7 Subjective: GISELLE Labs: Laboratory Tests Test 08/04/19 05:00 White Blood Count 7.4 K/UL (4.8-10.8) Red Blood Count 2.98 M/UL (4.70-6.10) L Hemoglobin 9.5 G/DL (14.2-18.0) L Hematocrit 28.1 % (42.0-52.0) L Mean Corpuscular Volume 94 FL (80-99) Mean Corpuscular Hemoglobin 31.8 PG (27.0-31.0) H Mean Corpuscular Hemoglobin Concent 33.7 G/DL (32.0-36.0) Red Cell Distribution Width 15.4 % (11.6-14.8) H Platelet Count 225 K/UL (150-450) Mean Platelet Volume 6.8 FL (6.5-10.1) Neutrophils (%) (Auto) 68.6 % (45.0-75.0) Lymphocytes (%) (Auto) 24.3 % (20.0-45.0) Monocytes (%) (Auto) 4.1 % (1.0-10.0) Eosinophils (%) (Auto) 2.2 % (0.0-3.0) Basophils (%) (Auto) 0.9 % (0.0-2.0) Sodium Level 141 MMOL/L (136-145) Potassium Level 3.6 MMOL/L (3.5-5.1) Chloride Level 109 MMOL/L (98-107) H Carbon Dioxide Level 31 MMOL/L (21-32) Anion Gap 1 mmol/L (5-15) L Blood Urea Nitrogen 7 mg/dL (7-18) Creatinine 0.7 MG/DL (0.55-1.30) Estimat Glomerular Filtration Rate > 60 mL/min (>60) Glucose Level 101 MG/DL (74-106) Calcium Level 7.7 MG/DL (8.5-10.1) L Total Bilirubin 0.6 MG/DL (0.2-1.0) Aspartate Amino Transf (AST/SGOT) 211 U/L (15-37) H Alanine Aminotransferase (ALT/SGPT) 410 U/L (12-78) H Alkaline Phosphatase 149 U/L (46-116) H Total Protein 6.1 G/DL (6.4-8.2) L Albumin 1.7 G/DL (3.4-5.0) L Globulin 4.4 g/dL Albumin/Globulin Ratio 0.4 (1.0-2.7) L Yovani Luevano MD Aug 04, 2019 17:56
[2019-08-04] MEDS: Dyna-Hex 2% Top Sol 2oz TOPIC SCH (19:40)
[2019-08-04] MEDS: Miralax 17gm pkt ORAL SCH (20:38)
[2019-08-05] VITALS (15 sets, daily range): BP systolic 80–148; BP diastolic 45–108
[2019-08-05 05:11] LABS: BASOPHILS % (AUTO) 1.8 % (0.0-2.0); EOSINOPHILS % (AUTO) 3.5 % (0.0-3.0); HEMATOCRIT 28.9 % (42.0-52.0); HEMOGLOBIN 9.6 G/DL (14.2-18.0); LYMPHOCYTES % (AUTO) 29.9 % (20.0-45.0); MEAN CORPUSCULAR VOLUME 96 FL (80-99); MONOCYTES % (AUTO) 5.9 % (1.0-10.0); NEUTROPHILS % (AUTO) 58.9 % (45.0-75.0); PLATELET COUNT 227 K/UL (150-450); RED BLOOD COUNT 3.02 M/UL (4.70-6.10); RED CELL DISTRIBUTION WIDTH 15.2 % (11.6-14.8); WHITE BLOOD COUNT 5.3 K/UL (4.8-10.8)
[2019-08-05 05:48] LABS: ALANINE AMINOTRANSFERASE 412 U/L (12-78); ALBUMIN 1.6 G/DL (3.4-5.0); ALBUMIN/GLOBULIN RATIO 0.3 (1.0-2.7); ALKALINE PHOSPHATASE 134 U/L (46-116); ANION GAP 1 mmol/L (5-15); ASPARTATE AMINO TRANSFERASE 220 U/L (15-37); BILIRUBIN,TOTAL 0.6 MG/DL (0.2-1.0); BLOOD UREA NITROGEN 6 mg/dL (7-18); CARBON DIOXIDE 32 MMOL/L (21-32); CHLORIDE 108 MMOL/L (98-107); CREATININE 0.6 MG/DL (0.55-1.30); POTASSIUM 3.6 MMOL/L (3.5-5.1); SODIUM 141 MMOL/L (136-145)
[2019-08-05] MEDS: Midodrine 10mg tab GT SCH ×3 (09:10→18:00)
[2019-08-05] MEDS: Docusate 100mg/10ml Liq GT SCH ×2 (09:10→18:12)
[2019-08-05] MEDS: Heparin 5000 units/ml inj SUBQ SCH ×2 (09:12→21:24)
[2019-08-05] MEDS: Linezolid 600mg/300mL Premix IVPB SCH (09:12)
--- NOTE | 2019-08-05 09:12 | General Progress Note ---
Assessment/Plan Problem List: (1) Septic shock ICD Codes: A41.9 - Sepsis, unspecified organism; R65.21 - Severe sepsis with septic shock SNOMED: 83948323 (2) Severe sepsis ICD Codes: A41.9 - Sepsis, unspecified organism; R65.20 - Severe sepsis without septic shock SNOMED: 14121599 (3) Hepatitis B ICD Codes: B19.10 - Unspecified viral hepatitis B without hepatic coma SNOMED: 36602423 (4) CHF (congestive heart failure) ICD Codes: I50.9 - Heart failure, unspecified SNOMED: 25676650 (5) Aortic stenosis ICD Codes: I35.0 - Nonrheumatic aortic (valve) stenosis SNOMED: 84232910 (6) GERD (gastroesophageal reflux disease) ICD Codes: K21.9 - Gastro-esophageal reflux disease without esophagitis SNOMED: 560845068 (7) HTN (hypertension) ICD Codes: I10 - Essential (primary) hypertension SNOMED: 20417789 Status: stable, progressing, other - critical Assessment/Plan: 54-year-old male, senior care resident Down syndrome, diastolic CHF, hypertension,hyperlipidemia, iron deficiency anemia, hypothyroidism, GERD, aortic stenosis, bilateral foot pressure ulcers, dysphagia s/p PEG presenting with altered mental status and hypoxia being admitted with septic shock likely secondary to pneumonia and possible abdominal source given elevated LFTs, though could be due to hypotension. CT abdomen pelvis without any source for infection. #Shock likely hypovolemic and septic. Staph aureus/vre/cnc bacteremia with possible mid-line infection, mrsa pneumonia, aspiration risk- resolving #Healthcare associated pneumonia IV fluid hydration. Weaned levophed. continue midodrine Cardiology consult with Dr. Owen regarding BP management Continue home midodrine- d/w rn - zyvox and zosyn - day # 7 abx . case d/w Dr. Serrano -mid-line removed, new picc line - f/u on cultures, labs and chest x-ray, check echo Pulmonary consult with Dr. Luevano. case d/w AM cortisol --> 12.7 d/w RN #toxic metabolic encephalopathy- improving Monitor mental status, treat sepsis #hypotonic hyponatremia- corrected continue to monitor #Abnormal LFTs #Acute Hepatitis B -right upper quadrant ultrasound- reviewed, no acute pathology -Trend LFTs, improving - Upon reviewing the chart, on previous admission hepatitis B surface antigen, hepatitis B core total antibody and hepatitis Be antibody was positive. liver function tests were normal. Patient was referred to follow up outpatient. -GI consult -continue Lamivudine 100mg GT BID Hep B DNA>>> pending # Dysphagia, status post G-tube #GERD resume tube feeds #Down syndrome. at baseline #Mild Diastolic CHF- not in exacerbation #history of supraventricular tachycardia, currently in SR #hypertension- hypotensive now #hyperlipidemia #- mild #moderate pulmonary hypertension hypovolemic Hold BP meds #iron deficiency anemia H/H stable continue to monitor Anemia panel prn transfusion #hypothyroidism -Continue Synthroid, follow up TSH- normal #Bilateral wounds and pressure ulcers to the heels wound care consult with Dr. Ruffin, surgery off loading turning q2 hr VTE ppx: heparin subcutaneous. GI ppx: IV PPI Diet: tube feeds Code status, DNI, however can resuscitate disposition: Transfer to [facility] surg if BP remains stable off levophed I spent 40 minutes on this patient's case > 50% spent on counselling and care coordination The time of my note may not reflect the time of my patient encounter. Subjective Date patient seen: Aug 05, 2019 ROS Limited/Unobtainable: Yes Allergies: Coded Allergies: KETAMINE (Verified Allergy, Unknown, 05/29/19) NSAIDS (NON-STEROIDAL ANTI-INFLAMMA (Verified Allergy, Unknown, 05/29/19) Subjective Transferred out of ICU, awake but non verbal (baseline), he appears to be in no distress. He is off levophed ggt, bp stable Objective Last 24 Hour Vital Signs Date Time Temp Pulse Resp B/P (MAP) Pulse Ox O2 Delivery O2 Flow Rate FiO2 08/05/19 07:00 66 18 96 Room Air 21 08/05/19 07:00 71 26 123/74 (90) 95 08/05/19 07:00 96 Room Air 21 08/05/19 06:00 70 30 93/66 (75) 98 08/05/19 05:00 72 32 90/45 (60) 95 08/05/19 04:00 Room Air 2.0 08/05/19 04:00 98.2 79 31 148/108 (121) 92 08/05/19 03:03 70 08/05/19 03:00 72 36 86/46 (59) 93 08/05/19 02:00 68 30 92/61 (71) 92 08/05/19 01:21 70 24 87/50 (62) 94 08/05/19 01:00 72 33 82/47 (59) 91 08/05/19 00:08 71 30 83/45 (58) 92 08/05/19 00:00 98.2 71 28 80/45 (57) 91 08/05/19 00:00 Room Air 2.0 08/04/19 23:17 64 08/04/19 23:00 68 34 92/54 (67) 93 08/04/19 22:00 68 30 97/72 (80) 94 08/04/19 21:03 67 32 88/73 (78) 95 08/04/19 21:00 67 30 87/49 (62) 94 08/04/19 20:11 65 32 95/69 (78) 95 08/04/19 20:00 Room Air 2.0 08/04/19 20:00 98.0 65 35 79/67 (71) 94 08/04/19 19:27 68 08/04/19 19:00 65 24 98/72 (81) 94 08/04/19 18:00 114/63 08/04/19 18:00 65 28 114/63 (80) 97 08/04/19 17:00 67 21 90/57 (68) 94 08/04/19 16:00 Nasal Cannula 2.0 08/04/19 16:00 53 08/04/19 16:00 97.8 68 19 91/57 (68) 96 08/04/19 15:00 67 31 91/50 (64) 94 08/04/19 14:00 69 27 84/48 (60) 94 08/04/19 13:00 66 23 91/38 (55) 96 08/04/19 12:00 Nasal Cannula 2.0 08/04/19 12:00 97.5 70 16 79/60 (66) 97 08/04/19 11:57 59 08/04/19 11:00 60 20 86/30 (48) 94 08/04/19 10:00 68 21 87/44 (58) 95 Intake and Output 08/04/19 08/05/19 18:59 06:59 Intake Total 2857.5 ml 2305 ml Output Total 2270 ml 1945 ml Balance 587.5 ml 360 ml Intake Free Water 310 ml IV Total 1857.5 ml 1600 ml Tube Feeding 660 ml 605 ml Other 30 ml 100 ml Output Urine Total 2270 ml 1795 ml Stool Total 150 ml Laboratory Tests 08/05/19 03:40: White Blood Count 5.3, Red Blood Count 3.02L, Hemoglobin 9.6L, Hematocrit 28.9L , Mean Corpuscular Volume 96, Mean Corpuscular Hemoglobin 31.8H, Mean Corpuscular Hemoglobin Concent 33.3, Red Cell Distribution Width 15.2H, Platelet Count 227, Mean Platelet Volume 7.0, Neutrophils (%) (Auto) 58.9, Lymphocytes (%) (Auto) 29.9, Monocytes (%) (Auto) 5.9, Eosinophils (%) (Auto) 3.5H, Basophils (%) (Auto) 1.8, Sodium Level 141, Potassium Level 3.6, Chloride Level 108H, Carbon Dioxide Level 32, Anion Gap 1L, Blood Urea Nitrogen 6L, Creatinine 0.6, Estimat Glomerular Filtration Rate > 60, Glucose Level 76, Calcium Level 8.0L, Total Bilirubin 0.6, Aspartate Amino Transf (AST/SGOT) 220H , Alanine Aminotransferase (ALT/SGPT) 412H, Alkaline Phosphatase 134H, Total Protein 6.3L, Albumin 1.6L, Globulin 4.7, Albumin/Globulin Ratio 0.3L 08/05/19 04:00: Stool Occult Blood [Pending] Height (Feet): 5 Height (Inches): 4.00 Weight (Pounds): 107 Objective General Appearance: no apparent distress, awake, non verbal Head: normocephalic, atraumatic Eyes: bilateral PERRL ENT: dry mucus membranes Neck: supple, no jvd Respiratory: rhonchi Cardiovascular : regular rate, rhythm, no m/r/g, ext: No edema Gastrointestinal: non tender, soft, +peg, Open blood blister in close proximity to GT . Musculoskeletal: moving extremities, muscle atrophy , +picc Neurologic: unable to assess, due to not following commands Skin: stage 2 ulcer right heel Matty Hernandez M.D. Aug 05, 2019 09:11
--- NOTE | 2019-08-05 09:42 | General Progress Note ---
Assessment/Plan Status: stable, progressing, other - critical Assessment/Plan: GI: Plan Problems: (1) Hepatitis B (2) Iron deficiency anemia (3) GERD (gastroesophageal reflux disease) (4) Down's syndrome (constipation) Plan rising LFTs 2/2 to Hepatitis B GT dependent constipation start patient on Lamivudine 100mg GT BID >> discussed with pharmacist, non- formulary will need script for outpatient treatment Hep B DNA>>> pending GTF prn transfusions PPI repeat liver function tests>>>stable colace and mirakax Subjective ROS Limited/Unobtainable: No Allergies: Coded Allergies: KETAMINE (Verified Allergy, Unknown, 05/29/19) NSAIDS (NON-STEROIDAL ANTI-INFLAMMA (Verified Allergy, Unknown, 05/29/19) Objective Last 24 Hour Vital Signs Date Time Temp Pulse Resp B/P (MAP) Pulse Ox O2 Delivery O2 Flow Rate FiO2 08/05/19 09:00 75 24 106/49 (68) 93 08/05/19 09:00 74 20 106/49 (68) 93 08/05/19 08:00 Room Air 08/05/19 08:00 73 08/05/19 08:00 73 25 82/45 (57) 92 08/05/19 08:00 98.0 85 18 83/49 (60) 51 08/05/19 07:00 66 18 96 Room Air 21 08/05/19 07:00 71 26 123/74 (90) 95 08/05/19 07:00 96 Room Air 21 08/05/19 06:00 70 30 93/66 (75) 98 08/05/19 05:00 72 32 90/45 (60) 95 08/05/19 04:00 Room Air 2.0 08/05/19 04:00 98.2 79 31 148/108 (121) 92 08/05/19 03:03 70 08/05/19 03:00 72 36 86/46 (59) 93 08/05/19 02:00 68 30 92/61 (71) 92 08/05/19 01:21 70 24 87/50 (62) 94 08/05/19 01:00 72 33 82/47 (59) 91 08/05/19 00:08 71 30 83/45 (58) 92 08/05/19 00:00 98.2 71 28 80/45 (57) 91 08/05/19 00:00 Room Air 2.0 08/04/19 23:17 64 08/04/19 23:00 68 34 92/54 (67) 93 08/04/19 22:00 68 30 97/72 (80) 94 08/04/19 21:03 67 32 88/73 (78) 95 08/04/19 21:00 67 30 87/49 (62) 94 08/04/19 20:11 65 32 95/69 (78) 95 08/04/19 20:00 Room Air 2.0 08/04/19 20:00 98.0 65 35 79/67 (71) 94 08/04/19 19:27 68 08/04/19 19:00 65 24 98/72 (81) 94 08/04/19 18:00 114/63 08/04/19 18:00 65 28 114/63 (80) 97 08/04/19 17:00 67 21 90/57 (68) 94 08/04/19 16:00 Nasal Cannula 2.0 08/04/19 16:00 53 08/04/19 16:00 97.8 68 19 91/57 (68) 96 08/04/19 15:00 67 31 91/50 (64) 94 08/04/19 14:00 69 27 84/48 (60) 94 08/04/19 13:00 66 23 91/38 (55) 96 08/04/19 12:00 Nasal Cannula 2.0 08/04/19 12:00 97.5 70 16 79/60 (66) 97 08/04/19 11:57 59 08/04/19 11:00 60 20 86/30 (48) 94 08/04/19 10:00 68 21 87/44 (58) 95 Intake and Output 08/04/19 08/05/19 18:59 06:59 Intake Total 2857.5 ml 2305 ml Output Total 2270 ml 1945 ml Balance 587.5 ml 360 ml Intake Free Water 310 ml IV Total 1857.5 ml 1600 ml Tube Feeding 660 ml 605 ml Other 30 ml 100 ml Output Urine Total 2270 ml 1795 ml Stool Total 150 ml Laboratory Tests 08/05/19 03:40: White Blood Count 5.3, Red Blood Count 3.02L, Hemoglobin 9.6L, Hematocrit 28.9L , Mean Corpuscular Volume 96, Mean Corpuscular Hemoglobin 31.8H, Mean Corpuscular Hemoglobin Concent 33.3, Red Cell Distribution Width 15.2H, Platelet Count 227, Mean Platelet Volume 7.0, Neutrophils (%) (Auto) 58.9, Lymphocytes (%) (Auto) 29.9, Monocytes (%) (Auto) 5.9, Eosinophils (%) (Auto) 3.5H, Basophils (%) (Auto) 1.8, Sodium Level 141, Potassium Level 3.6, Chloride Level 108H, Carbon Dioxide Level 32, Anion Gap 1L, Blood Urea Nitrogen 6L, Creatinine 0.6, Estimat Glomerular Filtration Rate > 60, Glucose Level 76, Calcium Level 8.0L, Total Bilirubin 0.6, Aspartate Amino Transf (AST/SGOT) 220H , Alanine Aminotransferase (ALT/SGPT) 412H, Alkaline Phosphatase 134H, Total Protein 6.3L, Albumin 1.6L, Globulin 4.7, Albumin/Globulin Ratio 0.3L 08/05/19 04:00: Stool Occult Blood [Pending] Height (Feet): 5 Height (Inches): 4.00 Weight (Pounds): 107 General Appearance: no apparent distress EENT: normal ENT inspection Neck: supple Cardiovascular: normal rate Respiratory/Chest: decreased breath sounds Abdomen: normal bowel sounds, non tender, soft Extremities: non-tender Lewis Rubio MD Aug 05, 2019 09:42
--- NOTE | 2019-08-05 17:42 | Pulmonology Progress Note ---
Assessment/Plan Problems: (1) Down's syndrome (2) CHF (congestive heart failure) (3) GERD (gastroesophageal reflux disease) (4) HTN (hypertension) (5) Hypothyroid (6) HLD (hyperlipidemia) (7) Septic shock (8) Severe sepsis Assessment/Plan Optimize pulmonary hygiene/mobilize as tolerated PRN O2 Abx: Zyvox and Zosyn per ID Monitor LFT's Continue Midodrine Monitor volumes and renal function DVT Px: Hep SQ DNAR Subjective Allergies: Coded Allergies: KETAMINE (Verified Allergy, Unknown, 05/29/19) NSAIDS (NON-STEROIDAL ANTI-INFLAMMA (Verified Allergy, Unknown, 05/29/19) Subjective TTF AFVSS on RA todd TF"s NAEO no cough no resp issues Objective Last 24 Hour Vital Signs Date Time Temp Pulse Resp B/P (MAP) Pulse Ox O2 Delivery O2 Flow Rate FiO2 08/05/19 16:00 98.0 73 24 132/77 (95) 92 08/05/19 12:00 97.9 83 23 96/63 (74) 93 08/05/19 12:00 66 08/05/19 09:00 75 24 106/49 (68) 93 08/05/19 09:00 74 20 106/49 (68) 93 08/05/19 08:00 Room Air 08/05/19 08:00 73 08/05/19 08:00 73 25 82/45 (57) 92 08/05/19 08:00 98.0 85 18 83/49 (60) 51 08/05/19 07:00 66 18 96 Room Air 21 08/05/19 07:00 71 26 123/74 (90) 95 08/05/19 07:00 96 Room Air 21 08/05/19 06:00 70 30 93/66 (75) 98 08/05/19 05:00 72 32 90/45 (60) 95 08/05/19 04:00 Room Air 2.0 08/05/19 04:00 98.2 79 31 148/108 (121) 92 08/05/19 03:03 70 08/05/19 03:00 72 36 86/46 (59) 93 08/05/19 02:00 68 30 92/61 (71) 92 08/05/19 01:21 70 24 87/50 (62) 94 08/05/19 01:00 72 33 82/47 (59) 91 08/05/19 00:08 71 30 83/45 (58) 92 08/05/19 00:00 98.2 71 28 80/45 (57) 91 08/05/19 00:00 Room Air 2.0 08/04/19 23:17 64 08/04/19 23:00 68 34 92/54 (67) 93 08/04/19 22:00 68 30 97/72 (80) 94 08/04/19 21:03 67 32 88/73 (78) 95 08/04/19 21:00 67 30 87/49 (62) 94 08/04/19 20:11 65 32 95/69 (78) 95 08/04/19 20:00 Room Air 2.0 08/04/19 20:00 98.0 65 35 79/67 (71) 94 08/04/19 19:27 68 08/04/19 19:00 65 24 98/72 (81) 94 08/04/19 18:00 114/63 08/04/19 18:00 65 28 114/63 (80) 97 Intake and Output 08/04/19 08/05/19 19:00 07:00 Intake Total 2830.0 ml 2275 ml Output Total 2225 ml 2090 ml Balance 605.0 ml 185 ml Intake Free Water 310 ml IV Total 1830.0 ml 1625 ml Tube Feeding 660 ml 550 ml Other 30 ml 100 ml Output Urine Total 2225 ml 1940 ml Stool Total 150 ml General Appearance: no acute distress, cachetic HEENT: normocephalic, atraumatic, anicteric, mucous membranes moist Respiratory/Chest: chest wall non-tender, lungs clear, normal breath sounds, no respiratory distress, no accessory muscle use Cardiovascular: normal peripheral pulses, normal rate, regular rhythm Abdomen: normal bowel sounds, soft, non tender, no organomegaly, non distended , no mass Extremities: no cyanosis, no clubbing, no edema Laboratory Tests 08/05/19 03:40: White Blood Count 5.3, Red Blood Count 3.02L, Hemoglobin 9.6L, Hematocrit 28.9L , Mean Corpuscular Volume 96, Mean Corpuscular Hemoglobin 31.8H, Mean Corpuscular Hemoglobin Concent 33.3, Red Cell Distribution Width 15.2H, Platelet Count 227, Mean Platelet Volume 7.0, Neutrophils (%) (Auto) 58.9, Lymphocytes (%) (Auto) 29.9, Monocytes (%) (Auto) 5.9, Eosinophils (%) (Auto) 3.5H, Basophils (%) (Auto) 1.8, Sodium Level 141, Potassium Level 3.6, Chloride Level 108H, Carbon Dioxide Level 32, Anion Gap 1L, Blood Urea Nitrogen 6L, Creatinine 0.6, Estimat Glomerular Filtration Rate > 60, Glucose Level 76, Calcium Level 8.0L, Total Bilirubin 0.6, Aspartate Amino Transf (AST/SGOT) 220H , Alanine Aminotransferase (ALT/SGPT) 412H, Alkaline Phosphatase 134H, Total Protein 6.3L, Albumin 1.6L, Globulin 4.7, Albumin/Globulin Ratio 0.3L 08/05/19 04:00: Stool Occult Blood Negative Current Medications Medications (Trade) Dose Ordered Sig/Kendra Route PRN Reason Start Time Stop Time Status Last Admin Dose Admin Acetaminophen (Tylenol) 650 mg Q4H PRN ORAL Mild Pain (Pain Scale 1-3) 08/05/19 12:15 08/27/19 12:14 Acetaminophen (Tylenol) 650 mg Q4H PRN ORAL fever 08/05/19 12:15 08/27/19 12:14 Chlorhexidine Gluconate (Judi-Hex 2%) 1 applic DAILY@1999 TOPIC 08/05/19 20:00 08/29/19 19:59 Dextrose (Dextrose 50%) 25 ml Q30M PRN IV Hypoglycemia 08/05/19 09:45 08/27/19 12:14 Dextrose (Dextrose 50%) 50 ml Q30M PRN IV Hypoglycemia 08/05/19 09:45 08/27/19 12:14 Docusate Sodium (Colace) 100 mg BID GT 08/05/19 18:00 08/31/19 08:59 Heparin Sodium (Porcine) (Heparin 5000 units/ml) 5,000 units EVERY 12 HOURS SUBQ 08/05/19 21:00 08/27/19 20:59 Levothyroxine Sodium (Synthroid) 50 mcg DAILY@0630 ORAL 08/06/19 06:30 08/29/19 06:29 Linezolid 300 ml @ 300 mls/hr Q12HR IVPB 08/05/19 21:00 08/09/19 16:59 Midodrine (Pro-Amatine) 5 mg THREE TIMES A DAY GT 08/05/19 13:00 08/29/19 12:59 08/05/19 15:23 Norepinephrine Bitartrate 4 mg/ Dextrose 250 ml @ 0 mls/hr Q24H IV 08/05/19 18:00 08/30/19 17:59 Ondansetron HCl (Zofran) 4 mg Q4H PRN IVP Nausea & Vomiting 08/05/19 11:30 09/02/19 03:29 Piperacillin Sod/ Tazobactam Sod 3.375 gm/Dextrose 100 ml @ 25 mls/hr EVERY 8 HOURS IVPB 08/05/19 14:00 08/10/19 13:59 08/05/19 14:00 Polyethylene Glycol (Miralax) 17 gm BEDTIME ORAL 08/05/19 21:00 08/31/19 20:59 Sodium Chloride 1,000 ml @ 125 mls/hr Q8H IV 08/05/19 09:30 08/28/19 08:59 08/05/19 15:23 Yovani Luevano MD Aug 05, 2019 17:41
--- NOTE | 2019-08-05 18:30 | Surgery Progress Note ---
Surgery Progress Note Subjective Additional Comments downgraded to QUAN improving exam stable comfortable more responsive HR improved Objective Last 24 Hour Vital Signs Date Time Temp Pulse Resp B/P (MAP) Pulse Ox O2 Delivery O2 Flow Rate FiO2 08/05/19 16:00 98.0 73 24 132/77 (95) 92 08/05/19 12:00 97.9 83 23 96/63 (74) 93 08/05/19 12:00 66 08/05/19 09:00 75 24 106/49 (68) 93 08/05/19 09:00 74 20 106/49 (68) 93 08/05/19 08:00 Room Air 08/05/19 08:00 73 08/05/19 08:00 73 25 82/45 (57) 92 08/05/19 08:00 98.0 85 18 83/49 (60) 51 08/05/19 07:00 66 18 96 Room Air 21 08/05/19 07:00 71 26 123/74 (90) 95 08/05/19 07:00 96 Room Air 21 08/05/19 06:00 70 30 93/66 (75) 98 08/05/19 05:00 72 32 90/45 (60) 95 08/05/19 04:00 Room Air 2.0 08/05/19 04:00 98.2 79 31 148/108 (121) 92 08/05/19 03:03 70 08/05/19 03:00 72 36 86/46 (59) 93 08/05/19 02:00 68 30 92/61 (71) 92 08/05/19 01:21 70 24 87/50 (62) 94 08/05/19 01:00 72 33 82/47 (59) 91 08/05/19 00:08 71 30 83/45 (58) 92 08/05/19 00:00 98.2 71 28 80/45 (57) 91 08/05/19 00:00 Room Air 2.0 08/04/19 23:17 64 08/04/19 23:00 68 34 92/54 (67) 93 08/04/19 22:00 68 30 97/72 (80) 94 08/04/19 21:03 67 32 88/73 (78) 95 08/04/19 21:00 67 30 87/49 (62) 94 08/04/19 20:11 65 32 95/69 (78) 95 08/04/19 20:00 Room Air 2.0 08/04/19 20:00 98.0 65 35 79/67 (71) 94 08/04/19 19:27 68 08/04/19 19:00 65 24 98/72 (81) 94 I&O Intake and Output 08/04/19 08/05/19 18:59 06:59 Intake Total 2857.5 ml 2305 ml Output Total 2270 ml 1945 ml Balance 587.5 ml 360 ml Intake Free Water 310 ml IV Total 1857.5 ml 1600 ml Tube Feeding 660 ml 605 ml Other 30 ml 100 ml Output Urine Total 2270 ml 1795 ml Stool Total 150 ml Dressing: saturated Wound: clean Cardiovascular: RSR Respiratory: clear Abdomen: soft, flat, non-tender, present bowel sounds Extremities: no edema, no tenderness, no cyanosis Laboratory Tests Test 08/05/19 03:40 08/05/19 04:00 White Blood Count 5.3 K/UL (4.8-10.8) Red Blood Count 3.02 M/UL (4.70-6.10) L Hemoglobin 9.6 G/DL (14.2-18.0) L Hematocrit 28.9 % (42.0-52.0) L Mean Corpuscular Volume 96 FL (80-99) Mean Corpuscular Hemoglobin 31.8 PG (27.0-31.0) H Mean Corpuscular Hemoglobin Concent 33.3 G/DL (32.0-36.0) Red Cell Distribution Width 15.2 % (11.6-14.8) H Platelet Count 227 K/UL (150-450) Mean Platelet Volume 7.0 FL (6.5-10.1) Neutrophils (%) (Auto) 58.9 % (45.0-75.0) Lymphocytes (%) (Auto) 29.9 % (20.0-45.0) Monocytes (%) (Auto) 5.9 % (1.0-10.0) Eosinophils (%) (Auto) 3.5 % (0.0-3.0) H Basophils (%) (Auto) 1.8 % (0.0-2.0) Sodium Level 141 MMOL/L (136-145) Potassium Level 3.6 MMOL/L (3.5-5.1) Chloride Level 108 MMOL/L (98-107) H Carbon Dioxide Level 32 MMOL/L (21-32) Anion Gap 1 mmol/L (5-15) L Blood Urea Nitrogen 6 mg/dL (7-18) L Creatinine 0.6 MG/DL (0.55-1.30) Estimat Glomerular Filtration Rate > 60 mL/min (>60) Glucose Level 76 MG/DL (74-106) Calcium Level 8.0 MG/DL (8.5-10.1) L Total Bilirubin 0.6 MG/DL (0.2-1.0) Aspartate Amino Transf (AST/SGOT) 220 U/L (15-37) H Alanine Aminotransferase (ALT/SGPT) 412 U/L (12-78) H Alkaline Phosphatase 134 U/L (46-116) H Total Protein 6.3 G/DL (6.4-8.2) L Albumin 1.6 G/DL (3.4-5.0) L Globulin 4.7 g/dL Albumin/Globulin Ratio 0.3 (1.0-2.7) L Stool Occult Blood Negative (NEGATIVE) Plan Problems: (1) Septic shock Assessment & Plan: This is a 54-year-old male with multi-medical morbidities history of Down's who presents with hypotension, tachycardia, abnormal electrolytes, abnormal LFTs. Patient currently admitted to the intensive care unit for care and management. Abdominal ultrasound noted as below Does not seem to have intra-abdominal etiology of sepsis/SIRS We will continue with work-up improving Trend labs Hold on central venous catheter placement as patient is responsive to IV fluids. If requires pressors okay to use midline for a short period of time until peripherally inserted central venous catheter placed.\ lft's improving exam improved downgrade Local wound care as below cont nutritional goals Thank you will follow the recommendations Gallbladder is unremarkable, without stones, wall thickening, nor pericholecystic fluid. Sonographic Gamez's sign is negative. Common bile duct measures 5 mm in diameter. No intrahepatic biliary ductal dilatation. Liver demonstrates slightly coarsened echogenicity. No focal abnormality. Portal vein and hepatic veins are patent. Pancreas is unremarkable. Spleen is unremarkable. Left kidney measures left cm in length. Right kidney measures 11.2 cm length. Both kidneys demonstrate normal echogenicity. There is mild fullness to the right renal collecting system, and very mild left hydronephrosis No focal abnormality . Non-aneurysmal abdominal aorta . There is a right hip prosthesis which throws off streak artifact which may obscure pelvic pathology. There is also some image degradation due to respiratory motion artifact in the upper abdomen. Lack of enteric contrast limits assessment of the GI tract. The rectum is distended by stool, measuring 6.7 cm in diameter. No definite wall thickening or perirectal inflammation demonstrated. Considerable dense stool is also seen elsewhere within the colon. No evidence of colonic diverticulosis or diverticulitis. The appendix is normal. No small bowel distention. There is a gastrostomy which appears to be in good position. Lack of IV contrast limits assessment of the solid organs. The liver, gallbladder, bile ducts, pancreas, spleen, adrenals are all unremarkable. There is mild fullness to the bilateral renal collecting systems and ureters. No focal renal parenchymal abnormality. No renal or ureteral calculi demonstrated. The bladder is markedly distended. It demonstrates mild wall thickening. No pelvic mass or adenopathy. The lung bases demonstrate bronchial wall thickening and basilar atelectatic changes as well as possibly some bronchiectasis on the left. There may be trace pleural fluid bilaterally. There is a small anterior wall pericardial effusion which measures up to 7 mm in thickness. The bones demonstrate a compression fracture deformity of the T11 vertebral body. This results in about 30% height loss. This is in retrospect evident also on a prior chest CT of 06/03/2019 Alexis Ruffin Aug 05, 2019 18:30
[2019-08-05] MEDS ORDERED: Dyna-Hex 2% Top Sol 2oz TOPIC SCH (20:00)
--- NOTE | 2019-08-05 20:16 | Cardiology Progress Note ---
Assessment/Plan Assessment/Plan 1. Septic shock, off levophed gtt, continue midodrine. 2. History of supraventricular tachycardia, currently in SR. 3. Mild aortic stenosis 4. Moderate pulmonary HTN. 5. Mild LV diastolic dysfunction. Subjective Subjective Sinus rhythm at rate of 76. Off Levophed gtt. Objective Last 24 Hour Vital Signs Date Time Temp Pulse Resp B/P (MAP) Pulse Ox O2 Delivery O2 Flow Rate FiO2 08/05/19 16:00 98.0 73 24 132/77 (95) 92 08/05/19 16:00 79 08/05/19 12:00 97.9 83 23 96/63 (74) 93 08/05/19 12:00 66 08/05/19 09:00 75 24 106/49 (68) 93 08/05/19 09:00 74 20 106/49 (68) 93 08/05/19 08:00 Room Air 08/05/19 08:00 73 08/05/19 08:00 73 25 82/45 (57) 92 08/05/19 08:00 98.0 85 18 83/49 (60) 51 08/05/19 07:00 66 18 96 Room Air 21 08/05/19 07:00 71 26 123/74 (90) 95 08/05/19 07:00 96 Room Air 21 08/05/19 06:00 70 30 93/66 (75) 98 08/05/19 05:00 72 32 90/45 (60) 95 08/05/19 04:00 Room Air 2.0 08/05/19 04:00 98.2 79 31 148/108 (121) 92 08/05/19 03:03 70 08/05/19 03:00 72 36 86/46 (59) 93 08/05/19 02:00 68 30 92/61 (71) 92 08/05/19 01:21 70 24 87/50 (62) 94 08/05/19 01:00 72 33 82/47 (59) 91 08/05/19 00:08 71 30 83/45 (58) 92 08/05/19 00:00 98.2 71 28 80/45 (57) 91 08/05/19 00:00 Room Air 2.0 08/04/19 23:17 64 08/04/19 23:00 68 34 92/54 (67) 93 08/04/19 22:00 68 30 97/72 (80) 94 08/04/19 21:03 67 32 88/73 (78) 95 08/04/19 21:00 67 30 87/49 (62) 94 Intake and Output 08/04/19 08/05/19 18:59 06:59 Intake Total 2857.5 ml 2305 ml Output Total 2270 ml 1945 ml Balance 587.5 ml 360 ml Intake Free Water 310 ml IV Total 1857.5 ml 1600 ml Tube Feeding 660 ml 605 ml Other 30 ml 100 ml Output Urine Total 2270 ml 1795 ml Stool Total 150 ml Laboratory Tests Test 08/05/19 03:40 08/05/19 04:00 White Blood Count 5.3 K/UL (4.8-10.8) Red Blood Count 3.02 M/UL (4.70-6.10) L Hemoglobin 9.6 G/DL (14.2-18.0) L Hematocrit 28.9 % (42.0-52.0) L Mean Corpuscular Volume 96 FL (80-99) Mean Corpuscular Hemoglobin 31.8 PG (27.0-31.0) H Mean Corpuscular Hemoglobin Concent 33.3 G/DL (32.0-36.0) Red Cell Distribution Width 15.2 % (11.6-14.8) H Platelet Count 227 K/UL (150-450) Mean Platelet Volume 7.0 FL (6.5-10.1) Neutrophils (%) (Auto) 58.9 % (45.0-75.0) Lymphocytes (%) (Auto) 29.9 % (20.0-45.0) Monocytes (%) (Auto) 5.9 % (1.0-10.0) Eosinophils (%) (Auto) 3.5 % (0.0-3.0) H Basophils (%) (Auto) 1.8 % (0.0-2.0) Sodium Level 141 MMOL/L (136-145) Potassium Level 3.6 MMOL/L (3.5-5.1) Chloride Level 108 MMOL/L (98-107) H Carbon Dioxide Level 32 MMOL/L (21-32) Anion Gap 1 mmol/L (5-15) L Blood Urea Nitrogen 6 mg/dL (7-18) L Creatinine 0.6 MG/DL (0.55-1.30) Estimat Glomerular Filtration Rate > 60 mL/min (>60) Glucose Level 76 MG/DL (74-106) Calcium Level 8.0 MG/DL (8.5-10.1) L Total Bilirubin 0.6 MG/DL (0.2-1.0) Aspartate Amino Transf (AST/SGOT) 220 U/L (15-37) H Alanine Aminotransferase (ALT/SGPT) 412 U/L (12-78) H Alkaline Phosphatase 134 U/L (46-116) H Total Protein 6.3 G/DL (6.4-8.2) L Albumin 1.6 G/DL (3.4-5.0) L Globulin 4.7 g/dL Albumin/Globulin Ratio 0.3 (1.0-2.7) L Stool Occult Blood Negative (NEGATIVE) Objective HEAD AND NECK: Shows no JVD or carotid bruits. LUNGS: Clear. CARDIOVASCULAR: Shows regular S1 and S2 with no gallops, murmurs or rubs. ABDOMEN: Status post G-tube. EXTREMITIES: No pitting edema. Valerio Oro MD Aug 05, 2019 20:16
[2019-08-05] MEDS ORDERED: Miralax 17gm pkt ORAL SCH (21:00)
[2019-08-06] VITALS: BP 115/63
[2019-08-06 03:48] LABS: BASOPHILS % (AUTO) 1.2 % (0.0-2.0); EOSINOPHILS % (AUTO) 1.7 % (0.0-3.0); HEMATOCRIT 31.1 % (42.0-52.0); HEMOGLOBIN 10.4 G/DL (14.2-18.0); LYMPHOCYTES % (AUTO) 36.9 % (20.0-45.0); MEAN CORPUSCULAR VOLUME 95 FL (80-99); MONOCYTES % (AUTO) 4.9 % (1.0-10.0); NEUTROPHILS % (AUTO) 55.3 % (45.0-75.0); PLATELET COUNT 248 K/UL (150-450); RED BLOOD COUNT 3.27 M/UL (4.70-6.10); RED CELL DISTRIBUTION WIDTH 15.5 % (11.6-14.8); WHITE BLOOD COUNT 5.7 K/UL (4.8-10.8)
[2019-08-06 04:00] VITALS: BP 116/74
[2019-08-06 04:36] LABS: ALANINE AMINOTRANSFERASE 386 U/L (12-78); ALBUMIN 1.8 G/DL (3.4-5.0); ALBUMIN/GLOBULIN RATIO 0.4 (1.0-2.7); ALKALINE PHOSPHATASE 154 U/L (46-116); ANION GAP 2 mmol/L (5-15); ASPARTATE AMINO TRANSFERASE 197 U/L (15-37); BILIRUBIN,TOTAL 0.6 MG/DL (0.2-1.0); BLOOD UREA NITROGEN 9 mg/dL (7-18); CARBON DIOXIDE 34 MMOL/L (21-32); CHLORIDE 103 MMOL/L (98-107); CREATININE 0.7 MG/DL (0.55-1.30); POTASSIUM 3.6 MMOL/L (3.5-5.1); SODIUM 139 MMOL/L (136-145)
--- NOTE | 2019-08-06 06:40 | General Progress Note ---
Assessment/Plan Status: stable, progressing, other - critical Assessment/Plan: GI: Plan Problems: (1) Hepatitis B (2) Iron deficiency anemia (3) GERD (gastroesophageal reflux disease) (4) Down's syndrome (constipation) Plan rising LFTs 2/2 to Hepatitis B GT dependent constipation start patient on Lamivudine 100mg GT BID >> discussed with pharmacist, non- formulary will need script for outpatient treatment Hep B DNA>>> pending GTF prn transfusions PPI repeat liver function tests>>>stable colace and mirakax Subjective ROS Limited/Unobtainable: No Allergies: Coded Allergies: KETAMINE (Verified Allergy, Unknown, 05/29/19) NSAIDS (NON-STEROIDAL ANTI-INFLAMMA (Verified Allergy, Unknown, 05/29/19) Objective Last 24 Hour Vital Signs Date Time Temp Pulse Resp B/P (MAP) Pulse Ox O2 Delivery O2 Flow Rate FiO2 08/06/19 04:00 74 08/06/19 04:00 98.2 81 20 116/74 (88) 93 08/06/19 00:00 99.5 80 20 115/63 (80) 94 08/06/19 00:00 78 08/05/19 20:00 97.9 89 20 110/67 (81) 92 08/05/19 20:00 73 08/05/19 16:00 98.0 73 24 132/77 (95) 92 08/05/19 16:00 79 08/05/19 12:00 97.9 83 23 96/63 (74) 93 08/05/19 12:00 66 08/05/19 09:00 75 24 106/49 (68) 93 08/05/19 09:00 74 20 106/49 (68) 93 08/05/19 08:00 Room Air 08/05/19 08:00 73 08/05/19 08:00 73 25 82/45 (57) 92 08/05/19 08:00 98.0 85 18 83/49 (60) 51 08/05/19 07:00 66 18 96 Room Air 21 08/05/19 07:00 71 26 123/74 (90) 95 08/05/19 07:00 96 Room Air 21 Intake and Output 08/05/19 08/06/19 19:00 07:00 Intake Total 1660 ml 2220 ml Output Total 4100 ml Balance -2440 ml 2220 ml Intake Free Water 200 ml 200 ml IV Total 625 ml 1525 ml Tube Feeding 715 ml 495 ml Other 120 ml Output Urine Total 4100 ml Laboratory Tests 08/06/19 03:00: White Blood Count 5.7, Red Blood Count 3.27L, Hemoglobin 10.4L, Hematocrit 31.1L , Mean Corpuscular Volume 95, Mean Corpuscular Hemoglobin 31.8H, Mean Corpuscular Hemoglobin Concent 33.4, Red Cell Distribution Width 15.5H, Platelet Count 248, Mean Platelet Volume 6.7, Neutrophils (%) (Auto) 55.3, Lymphocytes (%) (Auto) 36.9, Monocytes (%) (Auto) 4.9, Eosinophils (%) (Auto) 1.7, Basophils (%) (Auto) 1.2, Sodium Level 139, Potassium Level 3.6, Chloride Level 103, Carbon Dioxide Level 34H, Anion Gap 2L, Blood Urea Nitrogen 9, Creatinine 0.7, Estimat Glomerular Filtration Rate > 60, Glucose Level 97, Calcium Level 8.0L, Total Bilirubin 0.6, Aspartate Amino Transf (AST/SGOT) 197H , Alanine Aminotransferase (ALT/SGPT) 386H, Alkaline Phosphatase 154H, Total Protein 6.9, Albumin 1.8L, Globulin 5.1, Albumin/Globulin Ratio 0.4L Height (Feet): 5 Height (Inches): 4.00 Weight (Pounds): 107 General Appearance: alert EENT: normal ENT inspection Neck: normal inspection Cardiovascular: normal rate Respiratory/Chest: decreased breath sounds Abdomen: normal bowel sounds, non tender, soft Extremities: non-tender Lewis Rubio MD Aug 06, 2019 06:40
[2019-08-06 08:00] VITALS: BP 128/82
[2019-08-06] MEDS: Docusate 100mg/10ml Liq GT SCH (08:24)
[2019-08-06] MEDS: Midodrine 10mg tab GT SCH ×3 (08:24→17:52)
[2019-08-06] MEDS: Heparin 5000 units/ml inj SUBQ SCH (08:27)
[2019-08-06 12:00] VITALS: BP 132/70
--- NOTE | 2019-08-06 13:15 | Pulmonology Progress Note ---
Assessment/Plan Problems: (1) Down's syndrome (2) CHF (congestive heart failure) (3) GERD (gastroesophageal reflux disease) (4) HTN (hypertension) (5) Hypothyroid (6) HLD (hyperlipidemia) (7) Septic shock (8) Severe sepsis Assessment/Plan Optimize pulmonary hygiene/mobilize as tolerated PRN O2 Abx: Zyvox and Zosyn per ID Monitor LFT's, F/U GI recs Continue Midodrine Monitor volumes and renal function DVT Px: Hep SQ DNAR Respiratory status stable, will sign off and follow peripherally. Please call with any questions or change in condition. Subjective Allergies: Coded Allergies: KETAMINE (Verified Allergy, Unknown, 05/29/19) NSAIDS (NON-STEROIDAL ANTI-INFLAMMA (Verified Allergy, Unknown, 05/29/19) Subjective AFVSS on RA todd TFs NAEO no cough no resp issues Objective Last 24 Hour Vital Signs Date Time Temp Pulse Resp B/P (MAP) Pulse Ox O2 Delivery O2 Flow Rate FiO2 08/06/19 12:00 97.7 67 20 132/70 (90) 95 08/06/19 08:00 98.4 79 20 128/82 (97) 93 08/06/19 07:48 63 08/06/19 04:00 74 08/06/19 04:00 98.2 81 20 116/74 (88) 93 08/06/19 00:00 99.5 80 20 115/63 (80) 94 08/06/19 00:00 78 08/05/19 20:00 97.9 89 20 110/67 (81) 92 08/05/19 20:00 73 08/05/19 16:00 98.0 73 24 132/77 (95) 92 08/05/19 16:00 79 Intake and Output 08/05/19 08/06/19 19:00 07:00 Intake Total 1660 ml 2470 ml Output Total 4100 ml 1000 ml Balance -2440 ml 1470 ml Intake Free Water 200 ml 200 ml IV Total 625 ml 1775 ml Tube Feeding 715 ml 495 ml Other 120 ml Output Urine Total 4100 ml 1000 ml General Appearance: no acute distress, cachetic HEENT: normocephalic, atraumatic, anicteric, mucous membranes moist Respiratory/Chest: chest wall non-tender, lungs clear, normal breath sounds, no respiratory distress, no accessory muscle use Cardiovascular: normal peripheral pulses, normal rate, regular rhythm Abdomen: normal bowel sounds, soft, non tender, no organomegaly, non distended , no mass, other - GT Extremities: no cyanosis, no clubbing, no edema Laboratory Tests 08/06/19 03:00: White Blood Count 5.7, Red Blood Count 3.27L, Hemoglobin 10.4L, Hematocrit 31.1L , Mean Corpuscular Volume 95, Mean Corpuscular Hemoglobin 31.8H, Mean Corpuscular Hemoglobin Concent 33.4, Red Cell Distribution Width 15.5H, Platelet Count 248, Mean Platelet Volume 6.7, Neutrophils (%) (Auto) 55.3, Lymphocytes (%) (Auto) 36.9, Monocytes (%) (Auto) 4.9, Eosinophils (%) (Auto) 1.7, Basophils (%) (Auto) 1.2, Sodium Level 139, Potassium Level 3.6, Chloride Level 103, Carbon Dioxide Level 34H, Anion Gap 2L, Blood Urea Nitrogen 9, Creatinine 0.7, Estimat Glomerular Filtration Rate > 60, Glucose Level 97, Calcium Level 8.0L, Total Bilirubin 0.6, Aspartate Amino Transf (AST/SGOT) 197H , Alanine Aminotransferase (ALT/SGPT) 386H, Alkaline Phosphatase 154H, Total Protein 6.9, Albumin 1.8L, Globulin 5.1, Albumin/Globulin Ratio 0.4L Current Medications Medications (Trade) Dose Ordered Sig/Kendra Route PRN Reason Start Time Stop Time Status Last Admin Dose Admin Acetaminophen (Tylenol) 650 mg Q4H PRN ORAL Mild Pain (Pain Scale 1-3) 08/06/19 12:15 08/27/19 12:14 Acetaminophen (Tylenol) 650 mg Q4H PRN ORAL fever 08/06/19 12:15 08/27/19 12:14 Chlorhexidine Gluconate (Judi-Hex 2%) 1 applic DAILY@1999 TOPIC 08/06/19 20:00 08/29/19 19:59 Dextrose (Dextrose 50%) 25 ml Q30M PRN IV Hypoglycemia 08/06/19 10:15 08/27/19 12:14 Dextrose (Dextrose 50%) 50 ml Q30M PRN IV Hypoglycemia 08/06/19 10:15 08/27/19 12:14 Docusate Sodium (Colace) 100 mg BID GT 08/06/19 18:00 08/31/19 08:59 Heparin Sodium (Porcine) (Heparin 5000 units/ml) 5,000 units EVERY 12 HOURS SUBQ 08/06/19 21:00 08/27/19 20:59 Levothyroxine Sodium (Synthroid) 50 mcg DAILY@0630 ORAL 08/07/19 06:30 08/29/19 06:29 Linezolid 300 ml @ 300 mls/hr Q12HR IVPB 08/06/19 21:00 08/09/19 16:59 Midodrine (Pro-Amatine) 5 mg THREE TIMES A DAY GT 08/06/19 13:00 08/29/19 12:59 Ondansetron HCl (Zofran) 4 mg Q4H PRN IVP Nausea & Vomiting 08/06/19 11:30 09/02/19 03:29 Piperacillin Sod/ Tazobactam Sod 3.375 gm/Dextrose 100 ml @ 25 mls/hr EVERY 8 HOURS IVPB 08/06/19 14:00 08/11/19 13:59 Polyethylene Glycol (Miralax) 17 gm BEDTIME ORAL 08/06/19 21:00 08/31/19 20:59 Sodium Chloride 1,000 ml @ 125 mls/hr Q8H IV 08/06/19 10:00 08/28/19 08:59 08/06/19 10:00 Yovani Luevano MD Aug 06, 2019 13:15
--- NOTE | 2019-08-06 14:07 | Surgery Progress Note ---
Surgery Progress Note Subjective Additional Comments no acute events comfortable downgraded exam stable Objective Last 24 Hour Vital Signs Date Time Temp Pulse Resp B/P (MAP) Pulse Ox O2 Delivery O2 Flow Rate FiO2 08/06/19 12:00 97.7 67 20 132/70 (90) 95 08/06/19 11:48 64 08/06/19 08:00 98.4 79 20 128/82 (97) 93 08/06/19 07:48 63 08/06/19 04:00 74 08/06/19 04:00 98.2 81 20 116/74 (88) 93 08/06/19 00:00 99.5 80 20 115/63 (80) 94 08/06/19 00:00 78 08/05/19 20:00 97.9 89 20 110/67 (81) 92 08/05/19 20:00 73 08/05/19 16:00 98.0 73 24 132/77 (95) 92 08/05/19 16:00 79 I&O Intake and Output 08/05/19 08/06/19 19:00 07:00 Intake Total 1660 ml 2470 ml Output Total 4100 ml 1000 ml Balance -2440 ml 1470 ml Intake Free Water 200 ml 200 ml IV Total 625 ml 1775 ml Tube Feeding 715 ml 495 ml Other 120 ml Output Urine Total 4100 ml 1000 ml Dressing: saturated Wound: clean Cardiovascular: RSR Respiratory: clear, decreased breath sounds Abdomen: soft, non-tender, present bowel sounds Extremities: no edema, no tenderness, no cyanosis, other Laboratory Tests Test 08/06/19 03:00 White Blood Count 5.7 K/UL (4.8-10.8) Red Blood Count 3.27 M/UL (4.70-6.10) L Hemoglobin 10.4 G/DL (14.2-18.0) L Hematocrit 31.1 % (42.0-52.0) L Mean Corpuscular Volume 95 FL (80-99) Mean Corpuscular Hemoglobin 31.8 PG (27.0-31.0) H Mean Corpuscular Hemoglobin Concent 33.4 G/DL (32.0-36.0) Red Cell Distribution Width 15.5 % (11.6-14.8) H Platelet Count 248 K/UL (150-450) Mean Platelet Volume 6.7 FL (6.5-10.1) Neutrophils (%) (Auto) 55.3 % (45.0-75.0) Lymphocytes (%) (Auto) 36.9 % (20.0-45.0) Monocytes (%) (Auto) 4.9 % (1.0-10.0) Eosinophils (%) (Auto) 1.7 % (0.0-3.0) Basophils (%) (Auto) 1.2 % (0.0-2.0) Sodium Level 139 MMOL/L (136-145) Potassium Level 3.6 MMOL/L (3.5-5.1) Chloride Level 103 MMOL/L (98-107) Carbon Dioxide Level 34 MMOL/L (21-32) H Anion Gap 2 mmol/L (5-15) L Blood Urea Nitrogen 9 mg/dL (7-18) Creatinine 0.7 MG/DL (0.55-1.30) Estimat Glomerular Filtration Rate > 60 mL/min (>60) Glucose Level 97 MG/DL (74-106) Calcium Level 8.0 MG/DL (8.5-10.1) L Total Bilirubin 0.6 MG/DL (0.2-1.0) Aspartate Amino Transf (AST/SGOT) 197 U/L (15-37) H Alanine Aminotransferase (ALT/SGPT) 386 U/L (12-78) H Alkaline Phosphatase 154 U/L (46-116) H Total Protein 6.9 G/DL (6.4-8.2) Albumin 1.8 G/DL (3.4-5.0) L Globulin 5.1 g/dL Albumin/Globulin Ratio 0.4 (1.0-2.7) L Plan Problems: (1) Septic shock Assessment & Plan: This is a 54-year-old male with multi-medical morbidities history of Down's who presents with hypotension, tachycardia, abnormal electrolytes, abnormal LFTs. Patient currently admitted to the intensive care unit for care and management. Abdominal ultrasound noted as below Does not seem to have intra-abdominal etiology of sepsis/SIRS We will continue with work-up improving Trend labs Hold on central venous catheter placement as patient is responsive to IV fluids. If requires pressors okay to use midline for a short period of time until peripherally inserted central venous catheter placed.\ lft's improving exam improved downgrade Local wound care as below discussed abx goal with ID cont nutritional goals Thank you will follow the recommendations Gallbladder is unremarkable, without stones, wall thickening, nor pericholecystic fluid. Sonographic Gamez's sign is negative. Common bile duct measures 5 mm in diameter. No intrahepatic biliary ductal dilatation. Liver demonstrates slightly coarsened echogenicity. No focal abnormality. Portal vein and hepatic veins are patent. Pancreas is unremarkable. Spleen is unremarkable. Left kidney measures left cm in length. Right kidney measures 11.2 cm length. Both kidneys demonstrate normal echogenicity. There is mild fullness to the right renal collecting system, and very mild left hydronephrosis No focal abnormality . Non-aneurysmal abdominal aorta . There is a right hip prosthesis which throws off streak artifact which may obscure pelvic pathology. There is also some image degradation due to respiratory motion artifact in the upper abdomen. Lack of enteric contrast limits assessment of the GI tract. The rectum is distended by stool, measuring 6.7 cm in diameter. No definite wall thickening or perirectal inflammation demonstrated. Considerable dense stool is also seen elsewhere within the colon. No evidence of colonic diverticulosis or diverticulitis. The appendix is normal. No small bowel distention. There is a gastrostomy which appears to be in good position. Lack of IV contrast limits assessment of the solid organs. The liver, gallbladder, bile ducts, pancreas, spleen, adrenals are all unremarkable. There is mild fullness to the bilateral renal collecting systems and ureters. No focal renal parenchymal abnormality. No renal or ureteral calculi demonstrated. The bladder is markedly distended. It demonstrates mild wall thickening. No pelvic mass or adenopathy. The lung bases demonstrate bronchial wall thickening and basilar atelectatic changes as well as possibly some bronchiectasis on the left. There may be trace pleural fluid bilaterally. There is a small anterior wall pericardial effusion which measures up to 7 mm in thickness. The bones demonstrate a compression fracture deformity of the T11 vertebral body. This results in about 30% height loss. This is in retrospect evident also on a prior chest CT of 06/03/2019 Alexis Ruffin Aug 06, 2019 14:07
[2019-08-06] MEDS ORDERED: AMOX TR-K CLV1 EAC2 ORAL (15:03)
[2019-08-06] MEDS ORDERED: VANCOMYCIN750 MG/150 IV (15:03)
[2019-08-06] MEDS ORDERED: LAMIVUDINE100 MG PO (15:03)
[2019-08-06] MEDS ORDERED: Vanco pharmacy to dose MISC (15:03)
--- NOTE | 2019-08-06 15:04 | Discharge Instructions ---
Discharge Instructions Discharge Instructions Special Instructions PATIENT NEEDS BI-WEEKLY LABS, REPEAT CXR IN ONE WEEK, HE IS TO RECEIVE AUGMENTIN AND VANCOMYCIN FOR ONE WEEK. HE HAS BEEN STARTED ON LAMIVUDINE 100 MG BID FOR HEPATITIS B. NEEDS GI FOLLOW UP For Congestive Heart Failure Reminder Report to your physician any weight gain of 5 pounds or more in one week. Matty Hernandez M.D. Aug 06, 2019 15:04
--- NOTE | 2019-08-06 15:07 | Discharge Summary ---
Discharge Summary Hospital Course Date of Admission Jul 28, 2019 at 10:57 Date of Discharge 08/06/2019 Admitting Diagnosis hyponatremia, hypotensive HPI Dwayne Gibson is a 54 year old male who was admitted on Jul 28, 2019 at 10:57 for Hyponatremia, Hypotensive Consultations GI, PULMONARY, ID Procedures PICC INSERTION Hospital Course 54-year-old male, [facility] resident Down syndrome, diastolic CHF, hypertension,hyperlipidemia, iron deficiency anemia, hypothyroidism, GERD, aortic stenosis, bilateral foot pressure ulcers, dysphagia s/p PEG presenting with altered mental status and hypoxia being admitted with septic shock likely secondary to pneumonia and possible abdominal source given elevated LFTs, though could be due to hypotension. CT abdomen pelvis without any source for infection. #Shock likely hypovolemic and septic. Staph aureus/vre/cnc bacteremia with possible mid-line infection, mrsa pneumonia, aspiration risk- resolving #Healthcare associated pneumonia IV fluid hydration. Weaned levophed. continue midodrine Cardiology consult with Dr. Owen regarding BP management Continue home midodrine- d/w rn - zyvox and zosyn - day # 8 abx . case d/w Dr. Serrano, will switch to vancomycin and Augmentin for another 7 days -mid-line removed, new picc line - f/u on cultures, labs and chest x-ray, check echo Pulmonary consult with Dr. Luevano. case d/w AM cortisol --> 12.7 d/w RN #toxic metabolic encephalopathy- resolved Monitor mental status, treat sepsis #hypotonic hyponatremia- corrected continue to monitor #Abnormal LFTs #Acute Hepatitis B -right upper quadrant ultrasound- reviewed, no acute pathology -Trend LFTs, improving - Upon reviewing the chart, on previous admission hepatitis B surface antigen, hepatitis B core total antibody and hepatitis Be antibody was positive. liver function tests were normal. Patient was referred to follow up outpatient. -GI consult -continue Lamivudine 100mg GT BID Hep B DNA>>> pending # Dysphagia, status post G-tube #GERD resume tube feeds #Down syndrome. at baseline #Mild Diastolic CHF- not in exacerbation #history of supraventricular tachycardia, currently in SR #hypertension- hypotensive now #hyperlipidemia #- mild #moderate pulmonary hypertension hypovolemic Hold BP meds #iron deficiency anemia H/H stable continue to monitor Anemia panel prn transfusion #hypothyroidism -Continue Synthroid, follow up TSH- normal #Bilateral wounds and pressure ulcers to the heels wound care consult with Dr. Ruffin, surgery off loading turning q2 hr VTE ppx: heparin subcutaneous. GI ppx: IV PPI Diet: tube feeds Code status, DNI, however can resuscitate disposition: Transfer to med surg if BP remains stable off levophed I spent 35 minutes on this patient's case > 50% spent on counselling and care coordination The time of my note may not reflect the time of my patient encounter. today his bp stable, he is alert and orient, moist mucus membranes, lung cta bl , ext: no edema Discharge Medications New Medications: Lamivudine (Lamivudine) 100 Mg Tablet 100 MG PO BID for 30 Days, #60 TAB Vancomycin In Dextrose,Iso-Osm (Vancomycin 750 Mg/150 Ml Bag) 750 Mg/150 Ml Froz.piggy 750 MG IV BID for 7 Days, #14 BAG Amoxicillin/Potassium Clav 875-125 Mg Tab* (Amox Tr-K Clv 875-125 Mg Tab*) 1 Each Tablet 875 MG ORAL EVERY 12 HOURS for 7 Days, #14 TAB [[facility] pharmacy to dose] () 1 EA MISC 1 EA MISC DAILY PRN Continued Medications: Acetaminophen* (Acetaminophen 325MG Tablet*) 325 Mg Tablet 650 MG ORAL Q6H PRN for Prn Headache/Temp > 101, TAB Bisacodyl (Dulcolax) 10 Mg Supp.rect 10 MG RC, SUPP Famotidine* (Pepcid 20mg tablet*) 20 Mg Tablet 20 MG PEG DAILY, #30 TAB 0 Refills Ferrous Sulfate* (Ferrous Sulfate*) 325 Mg Tablet 325 MG PEG DAILY, #30 TAB 0 Refills Heparin Sodium,Porcine (Heparin Sodium) 5,000 Unit/1 Ml Cartridge 5000 UNIT IJ Q12HR Levothyroxine Sodium* (Synthroid*) 25 Mcg Tablet 50 MCG PEG DAILY, TAB Take in the morning on an empty stomach, at least 30 minutes before food. Magnesium Hydroxide* (Milk Of Magnesia*) 400 Mg/5 Ml Oral.susp 30 ML PEG DAILY, ML Megestrol Acetate (Megestrol Acetate) 400 Mg/10 Ml Oral.susp 400 MG GT, ML Midodrine* (Proamatine*) 5 Mg Tablet 5 MG PEG THREE TIMES A DAY, TAB Na Phos,M-B/Na Phos,Di-Ba* (Fleet Enema*) 133 Ml Enema 133 ML RECTAL DAILY, ML 0 Refills [santyl ointment] () TOPIC DAILY Discontinued Medications: Sodium Bicarbonate (Sodium Bicarbonate) 325 Mg Tablet 1 GM PO BID, TAB Discharge Condition Upon Discharge: stable Discharge Disposition Patient was discharged to SNF Discharge Diagnoses: (1) Acute on chronic respiratory failure with hypoxia and hypercapnia (2) MRSA pneumonia (3) Septic shock (4) Line sepsis (5) Hepatitis B (6) Iron deficiency anemia (7) CHF (congestive heart failure) (8) Aortic stenosis (9) Hypothyroid Matty Hernandez M.D. Aug 06, 2019 15:07
--- NOTE | 2019-08-06 15:42 | Infectious Diseases Prog Note ---
Assessment/Plan Assessment/Plan ASSESSMENT: 1. sepsis, shock, staph aureus/vre/manager battery bacteremia with possible mid-line infection, mrsa pneumonia, aspiration risk, fevers - zyvox and zosyn - can change to augmentin and vancomycin x 1 week (vre sensitive to ampicillin) - mid-line removed, new picc line - monitor labs and chest x-ray, check echo, doubt endocarditis - continue per primary care team and consultants - d/w Dr. Hernandez about abx, stable ID standpoint for discharge - surveillance blood cultures - negative 2. The patient has a history of Down syndrome. 3. Wound care protocol, wounds do not look acutely infected. 4. Diastolic CHF. 5. Hypertension. 6. Hyperlipidemia. 7. Anemia. 8. Hypothyroidism 9. GERD. 10. Aortic stenosis. 11. Dysphagia and G-tube. 12. Allergies to ketamine and NSAIDs. 13. Social history is negative. 14. Family history is noncontributory. 15. MAR was noted. 16. Case discussed with RN. 17. ICU care. 18. The patient also has elevated LFTs. I think an abdominal ultrasound has been ordered, this most likely is from septic shock. 19. Continue treatment per primary consultants and ICU care and nursing staff. 20. 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 Subjective Constitutional: Reports: fatigue; Denies: fever Respiratory: Denies: shortness of breath Breasts: Reports: discharge Cardiovascular: Denies: chest pain Gastrointestinal/Abdominal: Denies: nausea, vomiting, diarrhea Genitourinary: Reports: other - + jones Neurologic: Denies: headache Psychiatric: Denies: depression Skin: Denies: rash Hematologic: Denies: bleeding Musculoskeletal: Denies: pain Allergies: Coded Allergies: KETAMINE (Verified Allergy, Unknown, 05/29/19) NSAIDS (NON-STEROIDAL ANTI-INFLAMMA (Verified Allergy, Unknown, 05/29/19) Objective Vital Signs Last 24 Hour Vital Signs Date Time Temp Pulse Resp B/P (MAP) Pulse Ox O2 Delivery O2 Flow Rate FiO2 08/06/19 12:00 97.7 67 20 132/70 (90) 95 08/06/19 11:48 64 08/06/19 08:00 98.4 79 20 128/82 (97) 93 08/06/19 07:48 63 08/06/19 04:00 74 08/06/19 04:00 98.2 81 20 116/74 (88) 93 08/06/19 00:00 99.5 80 20 115/63 (80) 94 08/06/19 00:00 78 08/05/19 20:00 97.9 89 20 110/67 (81) 92 08/05/19 20:00 73 08/05/19 16:00 98.0 73 24 132/77 (95) 92 08/05/19 16:00 79 Height (Feet): 5 Height (Inches): 4.00 Weight (Pounds): 110 General Appearance: no acute distress HEENT: normocephalic, atraumatic, anicteric Respiratory/Chest: no accessory muscle use, crackles/rales - few , rhonchi - bilaterally - few Cardiovascular: normal rate, regular rhythm, no gallop/murmur Abdomen: normal bowel sounds, soft, non tender, no organomegaly, non distended Genitourinary: other - + jones Extremities: no cyanosis Skin: no rash Neurologic/Psychiatric: lunchroom monitor II-XII grossly normal, alert, responsive Lymphatic: no neck adenopathy Musculoskeletal: no effusion Objective Procedure: XRAY Chest 1v Indication: Shortness of breath Technique: XRAY Chest 1v Comparison: 07/29/2019 Chest x-ray - 07/31/19 - Findings: Heart size and mediastinal contours are stable. Patient is rotated to the right. There are increasing opacities at the lung bases, right greater than left. Left superhilar atelectasis or scarring is unchanged. There is an development of a small right-sided pleural effusion. No radiographically appreciable pneumothorax. Osseous structures stable. Multiple surgical clips noted projecting over the region of the right elbow. Impression: Limited exam due to suboptimal positioning. Worsening aeration with increasing bilateral airspace opacities, right greater than left. Interval development of a small right pleural effusion. Chest x-ray - 08/02/19 - IMPRESSION: 1. Interval placement of right PICC line to the cavoatrial junction. 2. Small right pleural effusion. Query tiny left pleural effusion. 3. Bibasilar lung atelectasis/airspace disease. Interstitial thickening. Microbiology Date/Time Source Procedure Growth Status 07/29/19 17:00 Blood Blood Culture - Final NO GROWTH AFTER 5 DAYS Complete 07/29/19 17:10 Sputum Induced Gram Stain - Final Complete 07/29/19 17:10 Sputum Culture - Final Staphylococcus Aureus - Mrsa Complete 07/28/19 10:55 Rectum - Final NO CARBAPENEM-RESISTANT ENTEROBACTERI... Complete Laboratory Tests Test 08/06/19 03:00 White Blood Count 5.7 K/UL (4.8-10.8) Red Blood Count 3.27 M/UL (4.70-6.10) L Hemoglobin 10.4 G/DL (14.2-18.0) L Hematocrit 31.1 % (42.0-52.0) L Mean Corpuscular Volume 95 FL (80-99) Mean Corpuscular Hemoglobin 31.8 PG (27.0-31.0) H Mean Corpuscular Hemoglobin Concent 33.4 G/DL (32.0-36.0) Red Cell Distribution Width 15.5 % (11.6-14.8) H Platelet Count 248 K/UL (150-450) Mean Platelet Volume 6.7 FL (6.5-10.1) Neutrophils (%) (Auto) 55.3 % (45.0-75.0) Lymphocytes (%) (Auto) 36.9 % (20.0-45.0) Monocytes (%) (Auto) 4.9 % (1.0-10.0) Eosinophils (%) (Auto) 1.7 % (0.0-3.0) Basophils (%) (Auto) 1.2 % (0.0-2.0) Sodium Level 139 MMOL/L (136-145) Potassium Level 3.6 MMOL/L (3.5-5.1) Chloride Level 103 MMOL/L (98-107) Carbon Dioxide Level 34 MMOL/L (21-32) H Anion Gap 2 mmol/L (5-15) L Blood Urea Nitrogen 9 mg/dL (7-18) Creatinine 0.7 MG/DL (0.55-1.30) Estimat Glomerular Filtration Rate > 60 mL/min (>60) Glucose Level 97 MG/DL (74-106) Calcium Level 8.0 MG/DL (8.5-10.1) L Total Bilirubin 0.6 MG/DL (0.2-1.0) Aspartate Amino Transf (AST/SGOT) 197 U/L (15-37) H Alanine Aminotransferase (ALT/SGPT) 386 U/L (12-78) H Alkaline Phosphatase 154 U/L (46-116) H Total Protein 6.9 G/DL (6.4-8.2) Albumin 1.8 G/DL (3.4-5.0) L Globulin 5.1 g/dL Albumin/Globulin Ratio 0.4 (1.0-2.7) L Current Medications Medications (Trade) Dose Ordered Sig/Kendra Route PRN Reason Start Time Stop Time Status Last Admin Dose Admin Acetaminophen (Tylenol) 650 mg Q4H PRN ORAL Mild Pain (Pain Scale 1-3) 08/06/19 12:15 08/27/19 12:14 Acetaminophen (Tylenol) 650 mg Q4H PRN ORAL fever 08/06/19 12:15 08/27/19 12:14 Amoxicillin/ Clavulanate Potassium (Augmentin) 875 mg EVERY 12 HOURS ORAL 08/06/19 21:00 08/13/19 20:59 Chlorhexidine Gluconate (Judi-Hex 2%) 1 applic DAILY@1999 TOPIC 08/06/19 20:00 08/29/19 19:59 Dextrose (Dextrose 50%) 25 ml Q30M PRN IV Hypoglycemia 08/06/19 10:15 08/27/19 12:14 Dextrose (Dextrose 50%) 50 ml Q30M PRN IV Hypoglycemia 08/06/19 10:15 08/27/19 12:14 Docusate Sodium (Colace) 100 mg BID GT 08/06/19 18:00 08/31/19 08:59 Heparin Sodium (Porcine) (Heparin 5000 units/ml) 5,000 units EVERY 12 HOURS SUBQ 08/06/19 21:00 08/27/19 20:59 Levothyroxine Sodium (Synthroid) 50 mcg DAILY@0630 ORAL 08/07/19 06:30 08/29/19 06:29 Midodrine (Pro-Amatine) 5 mg THREE TIMES A DAY GT 08/06/19 13:00 08/29/19 12:59 08/06/19 12:59 Ondansetron HCl (Zofran) 4 mg Q4H PRN IVP Nausea & Vomiting 08/06/19 11:30 09/02/19 03:29 Polyethylene Glycol (Miralax) 17 gm BEDTIME ORAL 08/06/19 21:00 08/31/19 20:59 Sodium Chloride 1,000 ml @ 125 mls/hr Q8H IV 08/06/19 10:00 08/28/19 08:59 08/06/19 10:00 Vancomycin HCl (Vanco rx to dose) 1 ea DAILY PRN MISC Per rx protocol 08/06/19 13:45 09/05/19 13:44 Vancomycin HCl 750 mg/Dextrose 275 ml @ 183.333 mls/hr Q12H IVPB 08/06/19 16:00 08/11/19 15:59 Rafia Rand MD Aug 06, 2019 15:42
[2019-08-06 15:46] VITALS: BP 102/62
[2019-08-06] MEDS ORDERED: Vancomycin 750mg/D5W 275ml IVPB SCH ×2 (16:00)
[2019-08-06] MEDS ORDERED: Docusate 100mg/10ml Liq GT SCH (18:00)
[2019-08-06] MEDS ORDERED: Dyna-Hex 2% Top Sol 2oz TOPIC SCH (20:00)
[2019-08-06] MEDS ORDERED: Augmentin 875mg Tab ORAL SCH ×2 (20:30→21:00)
[2019-08-06] MEDS ORDERED: NS 275ml ONE ×2 (20:49)
[2019-08-06] MEDS ORDERED: Miralax 17gm pkt ORAL SCH (21:00)
[2019-08-06] MEDS ORDERED: Heparin 5000 units/ml inj SUBQ SCH (21:00)
--- NOTE | 2019-08-07 11:40 | Cardiology Report ---
APPROVED REPORT EXAM: Two-dimensional and M-mode echocardiogram with Doppler and color Doppler. INDICATION Congestive Heart Failure M-Mode DIMENSIONS IVSd1.2 (0.7-1.1cm)Left Atrium (MM)3.3 (1.6-4.0cm) LVDd4.3 (3.5-5.6cm)Aortic Root3.2 (2.0-3.7cm) PWd1.0 (0.7-1.1cm)Aortic Cusp Exc.1.5 (1.5-2.0cm) IVSs1.2 cm LVDs3.1 (2.5-4.0cm) PWs1.1 cm <Conclusion> Technically difficult study due to combative patient. Normal left ventricular chamber size, systolic function and wall motion to extent visualized. Left ventricular ejection fraction estimated to be 55 -60%. No evidence of left ventricular hypertrophy . No evidence of pericardial effusion. All other cardiac chamber sizes are within normal limits. Aortic valve calcification with decreased cusp excursion c/w aortic stenosis. Heavilythickened mitral valve leaflets with reduced excursion,echogenic material noted on anterior mitral valve leaflet . Heavily mitral annulus and aortic root calcification. Normal pulmonic valve structure. Normal tricuspid valve structure. IVC at normal size with physiologic collapse. A color flow and spectral Doppler study was performed and revealed: No aortic regurgitation. Peak aortic valve gradient of 53 mm Hg and a mean of 26 mmHg. Aortic valve area 1.8 cm2 calculated by continuity equation. Moderate mitral regurgitation. Peak mitral valve gradient of 13 mm Hg and a mean of 5 mmHg. Mitral diastolic velocities suggest reduced left ventricular relaxation c/w mild LV diastolic dysfunction (Grade I ). Trace tricuspid regurgitation. Tricuspid systolic velocities suggests peak right ventricular systolic pressure of 49mmHg,consistent with moderate pulmonary hypertension.
== END 2019-08-06 20:50 | DRG 871 ==
LOC: EDBD 07:56 → EMR 08:43 → EDBEDREQ 09:47 → 2E 10:57 → EDBEDREQSVC 11:13 → EDBEDREQ 11:13 → ICU 12:10 → 4E 08-04 18:40 → ICU 08-04 18:41 → 2W 08-05 09:15 → 2E 08-06 09:51
DX: A41.9 Sepsis, unspecified organism (principal); R57.1 Hypovolemic shock; G92 Toxic encephalopathy; R65.21 Severe sepsis with septic shock; J15.212 Pneumonia due to Methicillin resistant Staphylococcus aureus; J96.22 Acute and chronic respiratory failure with hypercapnia; J96.21 Acute and chronic respiratory failure with hypoxia; E87.1 Hypo-osmolality and hyponatremia; I50.32 Chronic diastolic (congestive) heart failure; B16.9 Acute hepatitis B without delta-agent and without hepatic coma; Q90.9 Down syndrome, unspecified; I11.0 Hypertensive heart disease with heart failure; D50.9 Iron deficiency anemia, unspecified; E03.9 Hypothyroidism, unspecified; L89.629 Pressure ulcer of left heel, unspecified stage; L89.619 Pressure ulcer of right heel, unspecified stage; Z93.1 Gastrostomy status; R13.10 Dysphagia, unspecified; Y95 Nosocomial condition; K21.9 Gastro-esophageal reflux disease without esophagitis; I35.0 Nonrheumatic aortic (valve) stenosis; K59.00 Constipation, unspecified; I27.20 Pulmonary hypertension, unspecified
CPT/HCPCS: 36415; 36569; 36600; 51702; 71045; 74176; 76000; 76700; 76937; 80053; 80202; 81003; 82105; 82248; 82270; 82533; 82550; 82803; 83605; 83690; 83735; 83880; 84100; 84443; 84484; 85025; 85610; 85730; 87040; 87070; 87081; 87181; 87205; 87516; 93005; 93306; 94664; 96361; 96365; 96368; 99291; J2405; J7030; J8499